=== PATIENT | female | born 1945 ===

== ENCOUNTER 2021-12-29 13:15 | Inpatient (IN) | payer MEDICARE, OTHER ==
[2021-12-29] MEDS ORDERED: NALOXONE 0.4 MG/ML 1 ML VIAL IVP STA (13:34)
--- NOTE | 2021-12-29 14:20 | ED ---
General Adult HPI - General Chief complaint: Altered Mental Status Stated complaint: Kidney Failure Time Seen by Provider: 12/29/21 13:19 Source: patient, RN/MD, EMS, RN notes reviewed Mode of arrival: EMS Limitations: altered mental status, physical limitation - History of Present Illness Initial comments: 76-year-old female transferred from [facility] initially taken to that facility because of altered mental status as well as difficulty breathing she was found have shortness of breath evidence of CHF additionally she is believed of the overdosed on her pain medication she did respond Narcan and did wake up. She is found have evidence of worsening renal function and anemia. CAT scan was performed showing evidence of pulmonary vascular congestion consistent with CHF and pulmonary edema. Patient be admitted to this facility with evaluation by pulmonary medicine she did require - Related Data Allergies Allergy/AdvReac Type Severity Reaction Status Date / Time acetaminophen Allergy Unknown Verified 12/29/21 14:11 codeine Allergy Unknown Verified 12/29/21 14:11 hydromorphone [From Dilaudid] Allergy Unknown Verified 12/29/21 14:11 Review of Systems ROS Statement: Those systems with pertinent positive or pertinent negative responses have been documented in the HPI. Limitations: ROS unobtainable due to patients medical condition Past Medical History Additional Past Medical History / Comment(s): Paroxysmal atrial fibrilation, hypertension, parkinsons, epilepsy, hyperlipidemia, muscle weakness, anemia, hyperkalemia, major depressive disorder, sick sinus syndrome, PVD, CKD stage 3, angina, gastritis, dysphagia, gout, dementia History of Any Multi-Drug Resistant Organisms: Unobtainable Past Surgical History: Pacemaker Past Psychological History: Depression Smoking Status: Unknown if ever smoked Past Alcohol Use History: Unable to Obtain Past Drug Use History: Unable to Obtain General Exam - General Exam Comments Initial Comments: Is a well-developed well-nourished lethargic female Limitations: altered mental status, physical limitation General appearance: lethargic Head exam: Present: atraumatic, normocephalic, normal inspection Eye exam: Present: normal appearance, PERRL, EOMI. Absent: scleral icterus, conjunctival injection, periorbital swelling ENT exam: Present: normal exam, mucous membranes moist Neck exam: Present: normal inspection, full ROM, other (No stridor JVD or bruits ). Absent: tenderness, meningismus, lymphadenopathy Respiratory exam: Present: decreased breath sounds. Absent: respiratory distress, wheezes, rales, rhonchi, stridor Cardiovascular Exam: Present: regular rate, normal rhythm, normal heart sounds. Absent: systolic murmur, diastolic murmur, rubs, gallop, clicks GI/Abdominal exam: Present: soft, normal bowel sounds. Absent: distended, tenderness, guarding, rebound, rigid Extremities exam: Present: normal inspection, full ROM, normal capillary refill. Absent: tenderness, pedal edema, joint swelling, calf tenderness Back exam: Present: normal inspection Neurological exam: Present: alert, altered, CN II-XII intact Psychiatric exam: Present: normal affect, normal mood Skin exam: Present: warm, dry, intact, normal color. Absent: rash Course Vital Signs 12/29/21 12/29/21 12/29/21 13:19 13:53 13:54 Temperature 98.5 F Pulse Rate 66 70 Respiratory 18 14 16 Rate Blood Pressure 121/90 116/97 O2 Sat by Pulse 98 98 Oximetry Medical Decision Making - Medical Decision Making I did review the materials presented from [facility]. Case discussed with Dr. Schumacher patient will be admitted for inpatient evaluation treatment also consultation by nephrology. Disposition Clinical Impression: Congestive heart failure, Altered mental status, Acute kidney injury Disposition: ADMITTED IP TO THIS HOSP Condition: Fair Referrals: Farhad Flower MD [Primary Care Provider] - 1-2 days Decision Date: 12/29/21 Decision Time: 14:20
[2021-12-29] MEDS: FUROSEMIDE 10 MG/ML 4 ML VIAL IV SCH ×2 (15:43→20:34)
[2021-12-29] MEDS ORDERED: SIMETHICONE 80 MG CHEWABLE PO PRN (16:56)
[2021-12-29] MEDS ORDERED: NITROGLYCERIN SL TABS 0.4 MG TAB SUBLINGUAL PRN (16:56)
[2021-12-29] MEDS ORDERED: LACTULOSE 20 GM/30 ML CUP PO PRN (16:59)
[2021-12-29] MEDS ORDERED: CALCIUM CARBONATE 500 MG CHEWABLE PO PRN (16:59)
[2021-12-29] MEDS: RIVAROXABAN 15 MG TAB PO SCH (17:57)
[2021-12-29] MEDS: FERROUS SULFATE 325 MG TAB PO SCH (17:57)
[2021-12-29] MEDS: [UNRECOGNIZED DRUG - OTHER] PO SCH (17:57)
[2021-12-29] MEDS: carvediloL 12.5 MG TAB PO SCH (17:57)
[2021-12-29 18:12] LABS: Glucose,Whole Blood 130 mg/dL (75-99)
[2021-12-29] MEDS: INSULIN ASPART (NovoLOG) 100 UNIT/ML VIAL SQ SCH (18:31)
--- NOTE | 2021-12-29 18:52 | XR ---
EXAMINATION: XR chest 1V DATE AND TIME: 12/29/2021 6:33 PM CLINICAL INDICATION: dyspnea; CHF TECHNIQUE: AP portable upright COMPARISON: None FINDINGS: AV cardiac pacemaker, EKG leads. There is a fine reticular pattern of increased density throughout the lungs bilaterally and symmetric ally reaching the periphery as septal lines. Pattern is consistent with advanced interstitial phase p ulmonary edema, presumably cardiogenic etiology of the mild/moderate cardiac silhouette enlargement a nd the small bilateral pleural effusions. The skeletal structures and soft tissues are negative for acute findings. IMPRESSION: Advanced interstitial phase cardiogenic pulmonary edema radiographic pattern.
[2021-12-29 20:22] LABS: Glucose,Whole Blood 115 mg/dL (75-99)
[2021-12-29] MEDS: INSULIN DETEMIR (LEVEMIR) 100 UNIT/ML SYR SQ SCH (20:22)
[2021-12-29] MEDS: MELATONIN 5 MG TABLET PO SCH (20:22)
[2021-12-29] MEDS: CALCIUM CARB-VIT D 500 MG-5 MCG TAB PO SCH (20:34)
[2021-12-29] MEDS: PANTOPRAZOLE 40 MG TABLET PO SCH (20:34)
[2021-12-29] MEDS: ATORVASTATIN 40 MG TAB PO SCH (20:34)
[2021-12-29] MEDS: CARBIDOPA-LEVODOPA 25-100 MG 1 EACH TAB PO SCH (20:34)
[2021-12-29] MEDS: GABAPENTIN 300 MG CAP PO SCH (20:34)
[2021-12-29] MEDS ORDERED: MAGNESIUM OXIDE 400 MG TAB PO SCH (21:00)
[2021-12-29] MEDS ORDERED: DONEPEZIL 10 MG TAB PO SCH (21:00)
[2021-12-30 05:57] LABS: Glucose,Whole Blood 91 mg/dL (75-99)
[2021-12-30] MEDS: INSULIN ASPART (NovoLOG) 100 UNIT/ML VIAL SQ SCH ×3 (06:03→17:17)
[2021-12-30] MEDS: carvediloL 12.5 MG TAB PO SCH ×2 (06:05→17:18)
[2021-12-30] MEDS: ASPIRIN 81 MG PO SCH (06:07)
[2021-12-30] MEDS: FERROUS SULFATE 325 MG TAB PO SCH ×2 (06:07→17:18)
[2021-12-30] MEDS: PANTOPRAZOLE 40 MG TABLET PO SCH ×2 (06:07→20:48)
[2021-12-30] MEDS: amLODIPine 5 MG TAB PO SCH (06:07)
[2021-12-30 06:57] LABS: ALT <6 U/L (4-34); AST 17 U/L (14-36); African American GFR (CKD) 16 (>60 ml/min/1.73 sqM); Albumin 2.9 g/dL (3.5-5.0); Alkaline Phosphatase 85 U/L (38-126); Anion Gap 5 mmol/L; Blood Urea Nitrogen 46 mg/dL (7-17); Calcium 7.7 mg/dL (8.4-10.2); Carbon Dioxide 27 mmol/L (22-30); Chloride 106 mmol/L (98-107); Glucose 94 mg/dL (74-99); Non-African American GFR(CKD) 14 (>60 ml/min/1.73 sqM); Potassium 5.1 mmol/L (3.5-5.1); Sodium 138 mmol/L (137-145); Total Bilirubin 0.7 mg/dL (0.2-1.3); Total Protein 6.2 g/dL (6.3-8.2)
[2021-12-30] MEDS ORDERED: ESCITALOPRAM 5 MG TAB PO SCH (07:00)
[2021-12-30] MEDS: polyethylene glycoL 3350 17 GM POWD.PACK PO SCH (07:42)
[2021-12-30] MEDS: FUROSEMIDE 10 MG/ML 4 ML VIAL IV SCH ×2 (08:56→20:48)
[2021-12-30] MEDS: ONDANSETRON 4 MG/2 ML VIAL IVP PRN ×2 (08:56→21:47)
--- NOTE | 2021-12-30 10:25 | P.NPCON ---
History of Present Illness - Reason for Consult acute renal failure - History of Present Illness Reason for consultation: Acute kidney injury History of present illness: Patient is a 76-year-old female seen in consultation for acute kidney injury. Patient initially presented to [facility] with altered mental status and shortness of breath. There was concern that she had overdosed on medication. She is currently resting in bed. She states her dyspnea is better. Patient is not sure why she was brought to the hospital. She states that she lives alone at home. Patient's creatinine today is 3.05. Unknown baseline renal function. Patient does have long-standing history of diabetes as well as hypertension. Blood pressure stable. Patient is quite edematous. She is currently maintained on IV Lasix 40 mg twice daily. She has a Akhtar catheter in place. Urine output documented as 1900 mL overnight. I don't see any nonsteroidals at home medication list. Vital signs are stable. General: Awake. Resting in bed. HEENT: On nasal cannula. LUNGS: Breath sounds decreased. HEART: Rate and Rhythm are regular. ABDOMEN: Soft, no distention. EXTREMITITES: 2+ edema. Past Medical History Past Medical History: Atrial Fibrillation, Chest Pain / Angina, Dementia, Diabetes Mellitus, GERD/Reflux, Hyperlipidemia, Hypertension, Musculoskeletal Disorder, Neurologic Disorder, Pneumonia, Renal Disease, Seizure Disorder, Vascular Disorder Additional Past Medical History / Comment(s): IDDM type II, paroxysmal atrial fibrilation, parkinsons, epilepsy, muscle weakness, anemia, hyperkalemia, sick sinus syndrome with pacemaker, PVD, CKD stage 3, gastritis, dysphagia, gout History of Any Multi-Drug Resistant Organisms: None Reported Past Surgical History: Pacemaker Past Anesthesia/Blood Transfusion Reactions: No Reported Reaction Type of Cardiac Device: Permanent Pacemaker Device Placement Date:: unknown Smoking Status: Unknown if ever smoked - Past Family History Father Family Medical History: Unable to Obtain Mother Family Medical History: Unable to Obtain Medications and Allergies Home Medications Medication Instructions Recorded Confirmed Type Acetaminophen Tab [Tylenol] 650 mg PO Q4H PRN 12/29/21 12/29/21 History Allopurinol [Zyloprim] 100 mg PO DAILY@1200 12/29/21 12/29/21 History Aspirin EC [Ecotrin Low Dose] 81 mg PO DAILY@0700 12/29/21 12/29/21 History Atorvastatin [Lipitor] 40 mg PO HS@2100 28/22 04/28/22 History Calcium Carbonate/Vitamin D3 1 cap PO HS@209912/29/21 12/29/21 History [Calcium 600 mg-D3 10 Mcg (400 Iu)] Carbidopa-Levodopa 25-100 mg 1 tab PO HS@199912/29/21 12/29/21 History [Sinemet 25-100] Carvedilol [Coreg] 12.5 mg PO BID@0700,17012/29/21 12/29/21 History Docusate [Colace] 100 mg PO HS@209912/29/21 12/29/21 History Donepezil [Aricept] 10 mg PO HS@209912/29/21 12/29/21 History Escitalopram [Lexapro] 5 mg PO DAILY@0712/29/21 12/29/21 History Ferrous Sulfate [Feosol] 325 mg PO BID@0700,1700 12/29/21 12/29/21 History Fluticasone Nasal [place] [Flonase 1 spray EA NOSTRIL DAILY@0712/29/21 12/29/21 History Nasal [place]] Gabapentin [Neurontin] 300 mg PO HS@209912/29/21 12/29/21 History INSULIN LISPRO (HumaLOG) [humaLOG] See Protocol SQ AC-TID 12/29/21 12/29/21 History Insulin Glargine,Hum.rec.anlog 15 unit SQ HS@209912/29/21 12/29/21 History [Lantus Solostar Pen] Lidocaine 4% Patch 1 patch TOPICAL DAILY@99912/29/21 12/29/21 History Magnesium Oxide [Mag-Ox] 400 mg PO BID@1200,209912/29/21 12/29/21 History Med Plus 120 ml PO BID@1200,1700 12/29/21 12/29/21 History Melatonin 5 mg PO HS@209912/29/21 12/29/21 History Nitroglycerin Sl Tabs [Nitrostat] 0.4 mg SUBLINGUAL Q5M PRN 12/29/21 12/29/21 History Omeprazole 20 mg PO BID@0700,209912/29/21 12/29/21 History Polyethylene Glycol 3350 [Miralax] 17 gm PO DAILY@0800 12/29/21 12/29/21 History Rivaroxaban [Xarelto] 15 mg PO DAILY@1700 12/29/21 12/29/21 History Simethicone [Gas-X] 125 mg PO Q6H PRN 12/29/21 12/29/21 History amLODIPine [Norvasc] 5 mg PO DAILY@0700 12/29/21 12/29/21 History oxyCODONE HCL 5 mg PO QID 12/29/21 12/29/21 History Allergies Allergy/AdvReac Type Severity Reaction Status Date / Time acetaminophen Allergy Unknown Verified 12/29/21 14:11 codeine Allergy Unknown Verified 12/29/21 14:11 hydromorphone [From Dilaudid] Allergy Unknown Verified 12/29/21 14:11 Physical Exam Vitals: Vital Signs Temp Pulse Pulse Resp BP BP Pulse Ox 12/30/21 08:00 98.5 F 67 17 163/65 99 12/30/21 03:51 97.5 F L 58 L 16 100/60 100 12/30/21 00:00 97.7 F 60 17 118/49 100 12/29/21 20:00 97.4 F L 57 L 16 119/50 100 12/29/21 17:10 16 12/29/21 15:49 66 16 99 12/29/21 15:44 97.7 F 68 16 131/62 99 12/29/21 14:28 58 L 14 140/56 100 12/29/21 13:54 70 16 116/97 98 12/29/21 13:53 14 12/29/21 13:19 98.5 F 66 18 121/90 98 Intake and Output 12/29/21 12/30/21 12/30/21 22:59 06:59 14:59 Intake Total 240 Output Total 400 500 Balance -160 -500 Intake: Oral 240 Output: Urine 400 500 Other: Voiding Method Indwelling Catheter Indwelling Catheter Indwelling Catheter # Bowel Movements 1 Weight 99.79 kg 76.2 kg Results - Lab Results Most recent lab results Calcium 7.7 mg/dL (8.4-10.2) L 12/30/21 06:19 Magnesium 3.0 mg/dL (1.6-2.3) H 12/30/21 06:19 12/30/21 06:19 Assessment and Plan Plan: Assessment: 1. Acute kidney injury secondary to ATN secondary to cardiorenal syndrome. Unknown baseline renal function. Creatinine 3.05 today. 2. Volume overload. 3. Diabetes mellitus. 4. Rule out chronic kidney disease. 5. Benign hypertension. 6. Cardiomyopathy. Unknown ejection fraction. Plan: Maintain IV Lasix. Follow-up echocardiogram. Check urinalysis. Check renal ultrasound. Continue to monitor renal function and urine output. Hold amlodipine for systolic blood pressure less than 120. Stop magnesium oxide. Thank you for the consultation. I will continue to follow the patient with you during her hospital stay.
--- NOTE | 2021-12-30 11:11 | P.CRDCN ---
History of Present Illness Consult date: 12/30/21 History of present illness: Patient is a 76-year-old female who was transferred here from [place] with a known history of proximal atrial fibrillation hypertension, sick sinus syndrome status post permanent pacemaker, peripheral vascular disease, chronic kidney disease stage III, and dementia Parkinson's, epilepsy, hyperlipidemia brought in for increasing shortness of breath and altered mental status. Patient was becoming increasingly short of breath and lethargic, it was believed she overdosed on her pain medication due to her chronic kidney disease. We have been consult the to see the patient for new onset congestive heart failure. 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 Patient had a chest CT at another facility which showed pulmonary vascular congestion consistent with congestive heart failure. Her EKG shows her in sinus rhythm. She is on Lasix 40 every 12 hours, Her BUN is 46 creatinine 3.05. Patient is on several to go for her history of atrial fibrillation. On exam patient is resting comfortably in bed in no signs of acute distress. She is alert and orientated 1. Will obtain an echocardiogram to evaluate LV function. will recheck labs in the morning. Continue with Lipitor aspirin amlodipine Coreg Xarelto and IV Lasix. Review of Systems REVIEW OF SYSTEMS At the time of my exam: Patient is resting comfortably in bed in no signs of acute distress. Patient is alert and orientated 1 CONSTITUTIONAL: Denies fever or chills. EYES: Negative for vision changes ENT: Negative for hearing loss CARDIOVASCULAR: Denies chest pain, shortness of breath, diaphoresis, orthopnea, PND or palpitations. VASCULAR: Denies edema RESPIRATORY: Denies cough. GASTROINTESTINAL: Denies abdominal pain, diarrhea, constipation, nausea or vomiting. MUSCULOSKELETAL: Denies myalgias. NEUROLOGIC: Denies numbness, tingling, headache or weakness. ENDOCRINE: Denies fatigue, weight change, polydipsia or polyurina. GENITOURINARY: Denies burning, hematuria or urgency with micturation. HEMATOLOGIC: Denies history of anemia or bleeding. DERMATOLOGY: Denies rash or skin sores PSYCH: Negative for depression or hallucinations. Past Medical History Past Medical History: Atrial Fibrillation, Chest Pain / Angina, Dementia, Diabetes Mellitus, GERD/Reflux, Hyperlipidemia, Hypertension, Musculoskeletal Disorder, Neurologic Disorder, Pneumonia, Renal Disease, Seizure Disorder, Vascular Disorder Additional Past Medical History / Comment(s): IDDM type II, paroxysmal atrial fibrilation, parkinsons, epilepsy, muscle weakness, anemia, hyperkalemia, sick sinus syndrome with pacemaker, PVD, CKD stage 3, gastritis, dysphagia, gout History of Any Multi-Drug Resistant Organisms: None Reported Past Surgical History: Pacemaker Past Anesthesia/Blood Transfusion Reactions: No Reported Reaction Type of Cardiac Device: Permanent Pacemaker Device Placement Date:: unknown Smoking Status: Unknown if ever smoked - Past Family History Father Family Medical History: Unable to Obtain Mother Family Medical History: Unable to Obtain Medications and Allergies Home Medications Medication Instructions Recorded Confirmed Type Acetaminophen Tab [Tylenol] 650 mg PO Q4H PRN 12/29/21 12/29/21 History Allopurinol [Zyloprim] 100 mg PO DAILY@119912/29/21 12/29/21 History Aspirin EC [Ecotrin Low Dose] 81 mg PO DAILY@69912/29/21 12/29/21 History Atorvastatin [Lipitor] 40 mg PO HS@209912/29/21 12/29/21 History Calcium Carbonate/Vitamin D3 1 cap PO HS@209912/29/21 12/29/21 History [Calcium 600 mg-D3 10 Mcg (400 Iu)] Carbidopa-Levodopa 25-100 mg 1 tab PO HS@199912/29/21 12/29/21 History [Sinemet 25-100] Carvedilol [Coreg] 12.5 mg PO BID@0700,1700 12/29/21 12/29/21 History Docusate [Colace] 100 mg PO HS@209912/29/21 12/29/21 History Donepezil [Aricept] 10 mg PO HS@209912/29/21 12/29/21 History Escitalopram [Lexapro] 5 mg PO DAILY@69912/29/21 12/29/21 History Ferrous Sulfate [Feosol] 325 mg PO BID@0700,1700 12/29/21 12/29/21 History Fluticasone Nasal [place] [Flonase 1 spray EA NOSTRIL DAILY@69912/29/21 12/29/21 History Nasal [place]] Gabapentin [Neurontin] 300 mg PO HS@209912/29/21 12/29/21 History INSULIN LISPRO (HumaLOG) [humaLOG] See Protocol SQ AC-TID 12/29/21 12/29/21 History Insulin Glargine,Hum.rec.anlog 15 unit SQ HS@209912/29/21 12/29/21 History [Lantus Solostar Pen] Lidocaine 4% Patch 1 patch TOPICAL DAILY@1000 12/29/21 12/29/21 History Magnesium Oxide [Mag-Ox] 400 mg PO BID@1200,2100 12/29/21 12/29/21 History Med Plus 120 ml PO BID@1200,1700 12/29/21 12/29/21 History Melatonin 5 mg PO HS@209912/29/21 12/29/21 History Nitroglycerin Sl Tabs [Nitrostat] 0.4 mg SUBLINGUAL Q5M PRN 12/29/21 12/29/21 History Omeprazole 20 mg PO BID@0700,209912/29/21 12/29/21 History Polyethylene Glycol 3350 [Miralax] 17 gm PO DAILY@0800 12/29/21 12/29/21 History Rivaroxaban [Xarelto] 15 mg PO DAILY@1700 12/29/21 12/29/21 History Simethicone [Gas-X] 125 mg PO Q6H PRN 12/29/21 12/29/21 History amLODIPine [Norvasc] 5 mg PO DAILY@0700 12/29/21 12/29/21 History oxyCODONE HCL 5 mg PO QID 12/29/21 12/29/21 History Allergies Allergy/AdvReac Type Severity Reaction Status Date / Time acetaminophen Allergy Unknown Verified 12/29/21 14:11 codeine Allergy Unknown Verified 12/29/21 14:11 hydromorphone [From Dilaudid] Allergy Unknown Verified 12/29/21 14:11 Physical Exam Vitals: Vital Signs Temp Pulse Pulse Resp BP BP Pulse Ox 12/30/21 08:00 98.5 F 67 17 163/65 99 12/30/21 03:51 97.5 F L 58 L 16 100/60 100 12/30/21 00:00 97.7 F 60 17 118/49 100 12/29/21 20:00 97.4 F L 57 L 16 119/50 100 12/29/21 17:10 16 12/29/21 15:49 66 16 99 12/29/21 15:44 97.7 F 68 16 131/62 99 12/29/21 14:28 58 L 14 140/56 100 12/29/21 13:54 70 16 116/97 98 12/29/21 13:53 14 12/29/21 13:19 98.5 F 66 18 121/90 98 Intake and Output 12/29/21 12/30/21 12/30/21 22:59 06:59 14:59 Intake Total 240 Output Total 400 500 Balance -160 -500 Intake: Oral 240 Output: Urine 400 500 Other: Voiding Method Indwelling Catheter Indwelling Catheter Indwelling Catheter # Bowel Movements 1 Weight 99.79 kg 76.2 kg Patient is resting comfortably in bed in no signs of acute distress. Patient is alert and orientated 1 General: The patient is awake and alert, in no distress, and does not appear acutely ill. Skin: Skin is warm and dry and no rashes or lesions are noted. Eye: Pupils are equal, round and reactive to light, extra-ocular movements are intact; there is normal conjunctiva bilaterally. Ears, nose, mouth and throat: There are moist mucous membranes and no oral lesions. Neck: The neck is supple, there is no tenderness or JVD. Cardiovascular: There is irregular regular rate and rhythm. No murmur, rub or gallop is appreciated. Respiratory: Lungs are clear to auscultation, respirations are non-labored, breath sounds are equal. Gastrointestinal: Soft, non-distended, non-tender abdomen without masses or organomegaly noted. There is no rebound or guarding present. Bowel sounds are unremarkable. Back: There is no tenderness to palpation in the midline. There is no obvious deformity. Musculoskeletal: Normal ROM, no tenderness, There is no pedal edema. There is no calf tenderness or swelling. Extremities: Moderate bilateral pitting edema Vascular: Femoral pulse is normal. Posterior tibial pulses are normal .Dorsalis pedis is palpable. Neurological: CN II-XII intact. There are no obvious motor or sensory deficits. Speech is normal. Psychiatric: Cooperative, appropriate mood & affect, normal judgment Results 12/30/21 06:19 Cardiac Enzymes 12/30/21 Range/Units 06:19 AST 17 (14-36) U/L Comprehensive Metabolic Panel 12/30/21 Range/Units 06:19 Sodium 138 (137-145) mmol/L Potassium 5.1 (3.5-5.1) mmol/L Chloride 106 (98-107) mmol/L Carbon Dioxide 27 (22-30) mmol/L BUN 46 H (7-17) mg/dL Creatinine 3.05 H (0.52-1.04) mg/dL Glucose 94 (74-99) mg/dL Calcium 7.7 L (8.4-10.2) mg/dL AST 17 (14-36) U/L ALT <6 (4-34) U/L Alkaline Phosphatase 85 (38-126) U/L Total Protein 6.2 L (6.3-8.2) g/dL Albumin 2.9 L (3.5-5.0) g/dL Current Medications Generic Name Dose Route Start Last Admin Trade Name Freq PRN Reason Stop Dose Admin Acetaminophen 650 mg 12/29/21 16:56 Acetaminophen Tab 325 Mg Tab PO Q4H PRN Pain Allopurinol 100 mg 12/30/21 12:00 Allopurinol 100 Mg Tab PO DAILY@1200 [facility] Amlodipine Besylate 5 mg 12/30/21 07:00 12/30/21 06:07 Amlodipine 5 Mg Tab PO 5 mg DAILY@0700 [facility] Administration Aspirin 81 mg 12/30/21 07:00 12/30/21 06:07 Aspirin 81 Mg PO 81 mg DAILY@0700 [facility] Administration Atorvastatin Calcium 40 mg 12/29/21 21:00 12/29/21 20:34 Atorvastatin 40 Mg Tab PO 40 mg HS@2100 [facility] Administration Calcium Carbonate 1 each 12/29/21 21:00 12/29/21 20:34 Calcium Carb-Vit D 500 Mg-5 Mcg Tab PO 1 each HS@2100 [facility] Administration Calcium Carbonate/Glycine 1,000 mg 12/29/21 16:59 Calcium Carbonate 500 Mg Chewable PO Q4HR PRN Dyspepsia Carbidopa/Levodopa 1 each 12/29/21 20:00 12/29/21 20:34 Carbidopa-Levodopa 25-100 Mg 1 Each Tab PO 1 each HS@1999 [facility] Administration Carvedilol 12.5 mg 12/29/21 17:00 12/30/21 06:05 Carvedilol 12.5 Mg Tab PO Not Given BID@0700,1700 [facility] Donepezil HCl 10 mg 12/29/21 21:00 12/29/21 20:34 Donepezil 10 Mg Tab PO 10 mg HS@2100 [facility] Administration Escitalopram Oxalate 5 mg 12/30/21 07:00 12/30/21 06:07 Escitalopram 5 Mg Tab PO 5 mg DAILY@0700 [facility] Administration Ferrous Sulfate 325 mg 12/29/21 17:00 12/30/21 06:07 Ferrous Sulfate 325 Mg Tab PO 325 mg BID@0700,1700 [facility] Administration Furosemide 40 mg 12/29/21 14:30 12/30/21 08:56 Furosemide 10 Mg/Ml 4 Ml Vial IV 40 mg Q12HR [facility] Administration Gabapentin 300 mg 12/29/21 21:00 12/29/21 20:34 Gabapentin 300 Mg Cap PO 300 mg HS@2100 [facility] Administration Insulin Aspart 0 unit 12/29/21 17:30 12/30/21 06:03 Insulin Aspart (Novolog) 100 Unit/Ml Vial SQ Not Given AC-TID [facility] Protocol Insulin Detemir 15 unit 12/29/21 21:00 12/29/21 20:22 Insulin Detemir (Levemir) 100 Unit/Ml Syr SQ Not Given HS@2100 [facility] Lactulose 20 gm 12/29/21 16:59 Lactulose 20 Gm/30 Ml Cup PO DAILY PRN Constipation Lidocaine 1 patch 12/30/21 10:00 Lidocaine 5% Patch TOPICAL DAILY@1000 [facility] Melatonin 5 mg 12/29/21 21:00 12/29/21 20:22 Melatonin 5 Mg Tablet PO Not Given HS@2100 [facility] Nitroglycerin 0.4 mg 12/29/21 16:56 Nitroglycerin Sl Tabs 0.4 Mg Tab SUBLINGUAL Q5M PRN Chest Pain Non-Formulary Medication 120 ml 12/29/21 17:00 12/29/21 17:57 Med Plus PO Not Given BID@1200,1700 [facility] Ondansetron HCl 4 mg 12/29/21 16:59 12/30/21 08:56 Ondansetron 4 Mg/2 Ml Vial IVP 4 mg Q8HR PRN Administration Nausea And Vomiting Oxycodone HCl 5 mg 12/29/21 18:00 12/30/21 07:42 Oxycodone Hcl 5 Mg Tab PO Not Given QID [facility] Pantoprazole Sodium 40 mg 12/29/21 21:00 12/30/21 06:07 Pantoprazole 40 Mg Tablet PO 40 mg BID@0700,2100 [facility] Administration Polyethylene Glycol 17 gm 12/30/21 08:00 12/30/21 07:42 Polyethylene Glycol 3350 17 Gm Powd.Pack PO Not Given DAILY@0800 [facility] Rivaroxaban 15 mg 12/29/21 17:00 12/29/21 17:57 Rivaroxaban 15 Mg Tab PO Not Given DAILY@1700 [facility] Protocol Simethicone 120 mg 12/29/21 16:56 Simethicone 80 Mg Chewable PO Q6H PRN GAS Intake and Output 12/29/21 12/30/21 12/30/21 22:59 06:59 14:59 Intake Total 240 Output Total 400 500 Balance -160 -500 Intake: Oral 240 Output: Urine 400 500 Other: Voiding Method Indwelling Catheter Indwelling Catheter Indwelling Catheter # Bowel Movements 1 Weight 99.79 kg 76.2 kg 12/30/21 06:19 Assessment and Plan Assessment: New onset unspecific congestive heart failure Proximal atrial fibrillation Chronic kidney disease stage III Sick sinus syndrome status post pacemaker Plan: Will obtain an echocardiogram to evaluate LV function Continue with all current cardiac medications Continue with Xarelto for anticoagulation Continue to monitor kidney function Continue with IV Lasix for diuresing Continue with telemetry monitoring Further recommendations based on clinical course The above impression and plan of care have been discussed and directed by the signing physician. Clau Lizama, nurse practitioner, acting as scribe for [facility].
--- NOTE | 2021-12-30 11:19 | CA ---
Transthoracic Echo Report Name: Maurice Hilton Age: 76 Gender: F : 1945 Exam Date: 12/30/2021 08:58 Exam Location: [facility] Ht (in): 65 Wt (lb): 167 Ordering Physician: Jeff Schumacher MD Attending/Referring Phys: Helpdesk Administrator Rocio Gallo RDCS Procedure CPT: Indications: chf Cardiac Hx: AFIB, HTN , CHOL Technical Quality: Contrast 1: Total Dose (mL): Contrast 2: Total Dose (mL): MEASUREMENTS (Male / Female) Normal Values 2D ECHO LV Diastolic Diameter PLAX 4.0 cm 4.2 - 5.9 / 3.9 - 5.3 cm LV Systolic Diameter PLAX 2.7 cm IVS Diastolic Thickness 1.2 cm 0.6 - 1.0 / 0.6 - 0.9 cm LVPW Diastolic Thickness 1.3 cm 0.6 - 1.0 / 0.6 - 0.9 cm LV Relative Wall Thickness 0.6 RV Internal Dim ED PLAX 2.9 cm LA Systolic Diameter LX 3.4 cm 3.0 - 4.0 / 2.7 - 3.8 cm LA Volume 69.4 cm 18 - 58 / 22 - 52 cm M-MODE Aortic Root Diameter MM 2.2 cm LA Systolic Diameter MM 3.6 cm LA Ao Ratio MM 1.6 MV E Point Septal Separation 0.2 cm AV Cusp Separation MM 1.1 cm DOPPLER MV Area PHT 3.6 cm Mitral E Point Velocity 64.0 cm/s Mitral A Point Velocity 90.5 cm/s Mitral E to A Ratio 0.7 MV Deceleration Time 211.8 ms TR Peak Velocity 306.5 cm/s TR Peak Gradient 37.6 mmHg Right Ventricular Systolic Press 42.6 mmHg FINDINGS Left Ventricle Mildly increased left ventricular wall thickness. Left ventricular ejection fraction is estimated at 55-60%. Mildly increased septal wall thickness. Right Ventricle Normal right ventricular size and function. Right ventricular systolic pressure within normal limits. Right Atrium Right atrium not well visualized. Left Atrium Moderately increased left atrial volume. Mildly increased left atrial area. Mitral Valve Mitral valve thickened. Mild mitral regurgitation. Aortic Valve Aortic valve sclerosis. Tricuspid Valve Structurally normal tricuspid valve. Pulmonic Valve Pulmonic valve not well visualized. Pericardium Normal pericardium. Aorta Normal size aortic root and proximal ascending aorta. CONCLUSIONS Normal LV size and systolic function with mild concentric LVH. Mitral valve calcification and aortic sclerosis. No pericardial effusion Previewed by: Dr. Jackson Florez MD (Electronically Signed) Final Date: 30 December 2021 11:19
[2021-12-30 11:45] LABS: Glucose,Whole Blood 112 mg/dL (75-99)
[2021-12-30] MEDS: [UNRECOGNIZED DRUG - OTHER] PO SCH ×2 (12:23→16:28)
[2021-12-30] MEDS: LIDOCAINE 5% PATCH TOPICAL SCH (12:25)
--- NOTE | 2021-12-30 12:38 | P.HPIM ---
History of Present Illness H&P Date: 12/29/21 Chief Complaint: Short of breath This is a 76-year-old patient who follows with Dr. Farhad Flower. Seen by me in the ER. Resident of [facility]. Patient is a poor historian. Chronic stable medical conditions include depression, diabetes, peripheral neuropathy, dementia, hypertension, insomnia, hyperlipidemia, atrial fibrillation on xarelto, pacemaker for sick sinus syndrome, chronic kidney disease, gout, Parkinson's disease. Patient at baseline is known ambulatory. Patient is brought into [facility] this morning with a pulse ox down to 70%. Also been short of breath. Minimal cough. Since abdomen congestive heart failure. Sent down here. Started on IV Lasix. Patient herself is a limited historian. Daughter noticed to be short of breath. Review of systems: GEN.: Tired EYES: None HEENT: None NECK: None RESPIRATORY: Short of breath CARDIOVASCULAR: No chest pain GASTROINTESTINAL: None GENITOURINARY: None MUSCULOSKELETAL: Some joint pains] LYMPHATICS: None HEMATOLOGICAL: None PSYCHIATRY: Forgetful NEUROLOGICAL: Bilateral foot drop Past medical history to include: Depression, diabetes, peripheral neuropathy, dementia, hypertension, insomnia, hyperlipidemia, atrial fibrillation, Parkinson's, 6 sinus syndrome with a pacemaker, gout, chronic kidney disease Social history: Patient lives at [facility]. Needs a Nba lift a wheel chair. Incontinent. She can feed herself. No history of smoking alcohol known. Family history: Patient cannot tell Physical examination: VITAL SIGNS: 98.5, 66, 18, 121/90, 98% on 2 L GENERAL: BMI 36.6, laying in bed, some shortness of breath. EYES: Pupils equal. Conjunctiva normal. HEENT: External appearance of nose and ears normal, oral cavity grossly normal. NECK: JVD unable to assess; masses not palpable. HEART: Heart sounds irregular; some edema. LUNGS:[ Respiratory rate increased; decreased breath sounds. ABDOMEN: Soft, nontender, liver spleen not palpable, no masses palpable. PSYCH: [Patient knows her name, does not know where she is, does not know the year. MUSCULOSKELETAL:No Clubbing/cyanosis;muscles-grossly intact. Evidence of OA. Bilateral foot drop NEUROLOGICAL: [Cranial nerves grossly intact; no facial asymmetry, no part of the lower extremity. LYMPHATICS: No lymph nodes palpable in the axilla and neck INVESTIGATIONS, reviewed in the clinical context: Blood both from [facility]: INR 1.5. Lipase 64. Troponin less than 0.012. Lactic acid 0.9. COVID 19: Not detected. Influenza A: Not detected Sodium 136 potassium 5.9 BUN 41 creatinine 3.1 LFTs normal. EKG tracing personally reviewed by me-normal sinus rhythm. Chest x-ray film personally reviewed by me-cardiac megaly. Venous prominence. Blunting of angles Assessment and plan: -Acute congestive heart failure. EF not known. IV Lasix. 2-D echo. Consult cardiology -Depression Lexapro 5 mg a day -Diabetes mellitus type 2, chronically on insulin Lantus 15 units subcu daily at bedtime. Follow Accu-Cheks -Diabetic peripheral neuropathy Neurontin 300 mg daily at bedtime -Major cognitive impairment/dementia Aricept 10 mg daily at bedtime -Chronic medical debility, patient is on empirically. At her baseline needs Nba lift. Fall precautions -Essential hypertension Coreg 12.5 mg by mouth twice a day amlodipine 5 mg a day -Chronic gout Allopurinol 100 mg a day -Hyperlipidemia Lipitor 40 mg daily at bedtime -Parkinson's disease Sinemet 25/100 one tablet daily at bedtime -Chronic kidney disease stage III likely from diabetic nephropathy and hypertensive nephrosclerosis Follow renal function. Nephrology consult IV Lasix. Resume home medications. Follow Accu-Cheks. Telemetry Fall precautions. 2-D echocardiogram. Consultation to cardiology and nephrology. Strict I's and O's. Diabetic diet. Given the complexity and severity of patient's condition expect the patient to be in the hospital at least for 2 overnights Past Medical History Past Medical History: Atrial Fibrillation, Chest Pain / Angina, Dementia, Diabet es Mellitus, GERD/Reflux, Hyperlipidemia, Hypertension, Musculoskeletal Disorder, Neurologic Disorder, Pneumonia, Renal Disease, Seizure Disorder, Vascular Disorder Additional Past Medical History / Comment(s): IDDM type II, paroxysmal atrial fibrilation, parkinsons, epilepsy, muscle weakness, anemia, hyperkalemia, sick sinus syndrome with pacemaker, PVD, CKD stage 3, gastritis, dysphagia, gout History of Any Multi-Drug Resistant Organisms: None Reported Past Surgical History: Pacemaker Past Anesthesia/Blood Transfusion Reactions: No Reported Reaction Type of Cardiac Device: Permanent Pacemaker Device Placement Date:: unknown Smoking Status: Unknown if ever smoked - Past Family History Father Family Medical History: Unable to Obtain Mother Family Medical History: Unable to Obtain Medications and Allergies Home Medications Medication Instructions Recorded Confirmed Type Acetaminophen Tab [Tylenol] 650 mg PO Q4H PRN 12/29/21 12/29/21 History Allopurinol [Zyloprim] 100 mg PO DAILY@1200 12/29/21 12/29/21 History Aspirin EC [Ecotrin Low Dose] 81 mg PO DAILY@0700 12/29/21 12/29/21 History Atorvastatin [Lipitor] 40 mg PO HS@209912/29/21 12/29/21 History Calcium Carbonate/Vitamin D3 1 cap PO HS@209912/29/21 12/29/21 History [Calcium 600 mg-D3 10 Mcg (400 Iu)] Carbidopa-Levodopa 25-100 mg 1 tab PO HS@199912/29/21 12/29/21 History [Sinemet 25-100] Carvedilol [Coreg] 12.5 mg PO BID@0700,1700 12/29/21 12/29/21 History Docusate [Colace] 100 mg PO HS@209912/29/21 12/29/21 History Donepezil [Aricept] 10 mg PO HS@209912/29/21 12/29/21 History Escitalopram [Lexapro] 5 mg PO DAILY@0712/29/21 12/29/21 History Ferrous Sulfate [Feosol] 325 mg PO BID@0700,1700 12/29/21 12/29/21 History Fluticasone Nasal [place] [Flonase 1 spray EA NOSTRIL DAILY@0700 12/29/21 12/29/21 History Nasal Empire] Gabapentin [Neurontin] 300 mg PO HS@209912/29/21 12/29/21 History INSULIN LISPRO (HumaLOG) [humaLOG] See Protocol SQ AC-TID 12/29/21 12/29/21 History Insulin Glargine,Hum.rec.anlog 15 unit SQ HS@209912/29/21 12/29/21 History [Lantus Solostar Pen] Lidocaine 4% Patch 1 patch TOPICAL DAILY@1000 12/29/21 12/29/21 History Magnesium Oxide [Mag-Ox] 400 mg PO BID@1200,209912/29/21 12/29/21 History Med Plus 120 ml PO BID@1200,1700 12/29/21 12/29/21 History Melatonin 5 mg PO HS@2100 12/29/21 12/29/21 History Nitroglycerin Sl Tabs [Nitrostat] 0.4 mg SUBLINGUAL Q5M PRN 12/29/21 12/29/21 History Omeprazole 20 mg PO BID@0700,2100 12/29/21 12/29/21 History Polyethylene Glycol 3350 [Miralax] 17 gm PO DAILY@0800 12/29/21 12/29/21 History Rivaroxaban [Xarelto] 15 mg PO DAILY@1700 12/29/21 12/29/21 History Simethicone [Gas-X] 125 mg PO Q6H PRN 12/29/21 12/29/21 History amLODIPine [Norvasc] 5 mg PO DAILY@0700 12/29/21 12/29/21 History oxyCODONE HCL 5 mg PO QID 12/29/21 12/29/21 History Allergies Allergy/AdvReac Type Severity Reaction Status Date / Time acetaminophen Allergy Unknown Verified 12/29/21 14:11 codeine Allergy Unknown Verified 12/29/21 14:11 hydromorphone [From Dilaudid] Allergy Unknown Verified 12/29/21 14:11 Physical Exam Vitals: Vital Signs Temp Pulse Resp BP Pulse Ox 12/29/21 15:49 66 16 99 12/29/21 15:44 97.7 F 68 16 131/62 99 12/29/21 14:28 58 L 14 140/56 100 12/29/21 13:54 70 16 116/97 98 12/29/21 13:53 14 12/29/21 13:19 98.5 F 66 18 121/90 98 Intake and Output 12/29/21 12/29/21 12/29/21 06:59 14:59 22:59 Other: Weight 99.79 kg 99.79 kg Results CBC & Chem 7: 12/30/21 06:19 Thrombosis Risk Factor Assmnt - Choose All That Apply Any of the Below Risk Factors Present?: Yes Each Factor Represents 1 point: Heart failure (<1month), Medical pt on bed rest, Obesity (BMI >25) Other Risk Factors: Yes Each Risk Factor Represents 2 Points: Patient confined to bed Each Risk Factor Represents 3 Points: Age 75 years or older Other congenital or acquired thrombophilia - If yes, enter type in comment: No Thrombosis Risk Factor Assessment Total Risk Factor Score: 8 Thrombosis Risk Factor Assessment Level: High Risk
--- NOTE | 2021-12-30 12:45 | P.PN ---
Progress Note - Text Progress Note Date: 12/30/21 Chief Complaint: Short of breath This is a 76-year-old patient who follows with Dr. Farhad Flower. Seen by me in the ER. Resident of [facility]. Patient is a poor historian. Chronic stable medical conditions include depression, diabetes, peripheral neuropathy, dementia, hyp ertension, insomnia, hyperlipidemia, atrial fibrillation on xarelto, pacemaker for sick sinus syndrome, chronic kidney disease, gout, Parkinson's disease. Patient at baseline is known ambulatory. Patient is brought into [facility] this morning with a pulse ox down to 70%. Also been short of breath. Minimal cough. Since abdomen congestive heart failure. Sent down here. Started on IV Lasix. Patient herself is a limited historian. Daughter noticed to be short of breath. Admitted with acute congestive heart exacerbation. Started on IV Lasix. December 30: Laying in bed. A bit delirious. IV Lasix. Making urine. Rather sleepy. Oxycodone being changed to when necessary. DC Aricept and Lexapro given minimal benefit given her baseline state of dementia. Hopefully this should improve wakefulness. Active Medications Acetaminophen (Acetaminophen Tab 325 Mg Tab) 650 mg PO Q4H PRN PRN Reason: Pain Allopurinol (Allopurinol 100 Mg Tab) 100 mg PO DAILY@1200 [facility] Amlodipine Besylate (Amlodipine 5 Mg Tab) 5 mg PO DAILY@0700 [facility] Last Admin: 12/30/21 06:07 Dose: 5 mg Documented by: Aspirin (Aspirin 81 Mg) 81 mg PO DAILY@0700 [facility] Last Admin: 12/30/21 06:07 Dose: 81 mg Documented by: Atorvastatin Calcium (Atorvastatin 40 Mg Tab) 40 mg PO HS@2100 [facility] Last Admin: 12/29/21 20:34 Dose: 40 mg Documented by: Calcium Carbonate (Calcium Carb-Vit D 500 Mg-5 Mcg Tab) 1 each PO HS@2100 [facility] Last Admin: 12/29/21 20:34 Dose: 1 each Documented by: Calcium Carbonate/Glycine (Calcium Carbonate 500 Mg Chewable) 1,000 mg PO Q4HR PRN PRN Reason: Dyspepsia Carbidopa/Levodopa (Carbidopa-Levodopa 25-100 Mg 1 Each Tab) 1 each PO HS@2000 [facility] Last Admin: 12/29/21 20:34 Dose: 1 each Documented by: Carvedilol (Carvedilol 12.5 Mg Tab) 12.5 mg PO BID@0700,1700 [facility] Last Admin: 12/30/21 06:05 Dose: Not Given Documented by: Ferrous Sulfate (Ferrous Sulfate 325 Mg Tab) 325 mg PO BID@0700,1700 [facility] Last Admin: 12/30/21 06:07 Dose: 325 mg Documented by: Furosemide (Furosemide 10 Mg/Ml 4 Ml Vial) 40 mg IV Q12HR [facility] Last Admin: 12/30/21 08:56 Dose: 40 mg Documented by: Gabapentin (Gabapentin 300 Mg Cap) 300 mg PO HS@2100 [facility] Last Admin: 12/29/21 20:34 Dose: 300 mg Documented by: Insulin Aspart (Insulin Aspart (Novolog) 100 Unit/Ml Vial) 0 unit SQ AC-TID [facility]; Protocol Last Admin: 12/30/21 12:23 Dose: Not Given Documented by: Insulin Detemir (Insulin Detemir (Levemir) 100 Unit/Ml Syr) 15 unit SQ HS@2100 [facility] Last Admin: 12/29/21 20:22 Dose: Not Given Documented by: Lactulose (Lactulose 20 Gm/30 Ml Cup) 20 gm PO DAILY PRN PRN Reason: Constipation Lidocaine (Lidocaine 5% Patch) 1 patch TOPICAL DAILY@1000 [facility] Last Admin: 12/30/21 12:25 Dose: 1 patch Documented by: Melatonin (Melatonin 5 Mg Tablet) 5 mg PO HS@2100 [facility] Last Admin: 12/29/21 20:22 Dose: Not Given Documented by: Nitroglycerin (Nitroglycerin Sl Tabs 0.4 Mg Tab) 0.4 mg SUBLINGUAL Q5M PRN PRN Reason: Chest Pain Non-Formulary Medication (Med Plus) 120 ml PO BID@1200,1700 [facility] Last Admin: 12/30/21 12:23 Dose: Not Given Documented by: Ondansetron HCl (Ondansetron 4 Mg/2 Ml Vial) 4 mg IVP Q8HR PRN PRN Reason: Nausea And Vomiting Last Admin: 12/30/21 08:56 Dose: 4 mg Documented by: Oxycodone HCl (Oxycodone Hcl 5 Mg Tab) 5 mg PO QID PRN PRN Reason: Breakthrough Pain Pantoprazole Sodium (Pantoprazole 40 Mg Tablet) 40 mg PO BID@0700,2100 [facility] Last Admin: 12/30/21 06:07 Dose: 40 mg Documented by: Polyethylene Glycol (Polyethylene Glycol 3350 17 Gm Powd.Pack) 17 gm PO DAILY@0800 [facility] Last Admin: 12/30/21 07:42 Dose: Not Given Documented by: Rivaroxaban (Rivaroxaban 15 Mg Tab) 15 mg PO DAILY@1700 [facility]; Protocol Last Admin: 12/29/21 17:57 Dose: Not Given Documented by: Simethicone (Simethicone 80 Mg Chewable) 120 mg PO Q6H PRN PRN Reason: GAS Past medical history to include: Depression, diabetes, peripheral neuropathy, dementia, hypertension, insomnia, hyperlipidemia, atrial fibrillation, Parkinson's, 6 sinus syndrome with a pacemaker, gout, chronic kidney disease Social history: Patient lives at [facility]. Needs a Nba lift a wheelchair. Incontinent. She can feed herself. No history of smoking alcohol known. Family history: Patient cannot tell Physical examination: VITAL SIGNS: 98.5, 67, 17, 163/65, 99% 2 L GENERAL: laying in bed, some delirium. EYES: Pupils equal. Conjunctiva normal. HEENT: External appearance of nose and ears normal, oral cavity grossly normal. NECK: JVD unable to assess; masses not palpable. HEART: Heart sounds irregular; some edema. LUNGS:[ Respiratory rate increased; decreased breath sounds. ABDOMEN: Soft, nontender, liver spleen not palpable, no masses palpable. PSYCH: Delirium. MUSCULOSKELETAL:No Clubbing/cyanosis;muscles-grossly intact. Evidence of OA. Bilateral foot drop NEUROLOGICAL: [Cranial nerves grossly intact; no facial asymmetry, no power of the lower extremity. INVESTIGATIONS, reviewed in the clinical context: December 30: Sodium 1:30 potassium 5.1 (creatinine 3.05 2-D echo: EF 55-60%. EKG tracing personally reviewed by me-normal sinus rhythm. Chest x-ray film personally reviewed by me-cardiac idania. Venous prominence. Blunting of angles Investigations from [facility]: INR 1.5. Lipase 64. Troponin less than 0.012. Lactic acid 0.9. COVID 19: Not detected. Influenza A: Not detected Sodium 136 potassium 5.9 BUN 41 creatinine 3.1 LFTs normal. Assessment and plan: -Acute congestive heart failure. From diastolic dysfunction EF 55-60%. IV Lasix 40 mg every 12. Follow with cardiology. -Acute delirium: New diagnosis Multifactorial. DC Aricept. DC Lexapro. Change oxycodone to when necessary. -Depression Given patient's underlying dementia. Will DC Lexapro given risk-benefit b demie. -Diabetes mellitus type 2, chronically on insulin Lantus 15 units subcu daily at bedtime. Follow Accu-Cheks -Diabetic peripheral neuropathy Neurontin 300 mg daily at bedtime -Major cognitive impairment/dementia Aricept being discontinued given the risk balance benefit see how the patient does the same.. -Chronic medical debility, patient is on empirically. At her baseline needs Nba lift. Fall precautions -Essential hypertension Coreg 12.5 mg by mouth twice a day amlodipine 5 mg a day -Chronic gout Allopurinol 100 mg a day -Hyperlipidemia Lipitor 40 mg daily at bedtime -Parkinson's disease Sinemet 25/100 one tablet daily at bedtime -Chronic kidney disease stage III likely from diabetic nephropathy and hypertensive nephrosclerosis Follow renal function. Nephrology consult -Chronic pain syndrome Given patient multifactorial problems. Change oxycodone to when necessary. Continue evaluated pain regularly. IV Lasix. DC Lexapro Aricept. Change oxycodone to when necessary. Follow lites closely. Follow with consultants.
--- NOTE | 2021-12-30 13:08 | US ---
EXAMINATION TYPE: US kidneys/renal and bladder DATE OF EXAM: 12/30/2021 COMPARISON: Outside CT from yesterday CLINICAL HISTORY: andra. ANDRA EXAM MEASUREMENTS: Right Kidney: 8.4 x 3.7 x 3.3 cm Left Kidney: 8.0 x 4.4 x 3.3 cm Right Kidney: Cortical thinning. Left Kidney: Cortical thinning. Bladder: Catheter Bilateral Jets seen: No Symmetric small size to both kidneys with cortical thinning. Suboptimal evaluation due to large body habitus. Possible small calculus lower pole left kidney coronal image [address] is not clearly seen on ultrasound. No gross hydronephrosis. Akhtar catheter decompresses bladder. IMPRESSION: Suboptimal study. Evidence of chronic medical renal disease. No gross hydronephrosis seen bilaterally.
[2021-12-30] MEDS: allopurinoL 100 MG TAB PO SCH (13:10)
[2021-12-30 14:48] VITALS: BMI 27.9
[2021-12-30 16:35] LABS: Glucose,Whole Blood 145 mg/dL (75-99)
[2021-12-30] MEDS: RIVAROXABAN 15 MG TAB PO SCH (17:18)
[2021-12-30 18:36] LABS: Appearance,Urine Clear (Clear); Bilirubin,Urine Negative (Negative); Blood,Urine Trace (Negative); Color,Urine Light Yellow; Glucose,Urine (UA) Negative (Negative); Hyaline Casts,Urine 50 /lpf (0-2); Ketones,Urine Negative (Negative); Leukocyte Esterase,Urine Large (Negative); Mucus,Urine Rare /hpf; Nitrite,Urine Negative (Negative); Protein,Urine Trace (Negative); RBC,Urine 4 /hpf (0-5); Specific Gravity,Urine 1.009 (1.001-1.035); Squamous Epithelial Cell,Urine 1 /hpf (0-4); Urobilinogen,Urine <2.0 mg/dL (<2.0); WBC,Urine 29 /hpf (0-5)
[2021-12-30 20:05] LABS: Glucose,Whole Blood 110 mg/dL (75-99)
[2021-12-30] MEDS: INSULIN DETEMIR (LEVEMIR) 100 UNIT/ML SYR SQ SCH (20:41)
[2021-12-30] MEDS: CALCIUM CARB-VIT D 500 MG-5 MCG TAB PO SCH (20:48)
[2021-12-30] MEDS: MELATONIN 5 MG TABLET PO SCH (20:48)
[2021-12-30] MEDS: ATORVASTATIN 40 MG TAB PO SCH (20:48)
[2021-12-30] MEDS: CARBIDOPA-LEVODOPA 25-100 MG 1 EACH TAB PO SCH (20:48)
[2021-12-30] MEDS: GABAPENTIN 300 MG CAP PO SCH (20:48)
[2021-12-31] MEDS: ACETAMINOPHEN TAB 325 MG TAB PO PRN ×2 (03:26→12:02)
[2021-12-31 05:45] LABS: Glucose,Whole Blood 119 mg/dL (75-99)
[2021-12-31] MEDS: INSULIN ASPART (NovoLOG) 100 UNIT/ML VIAL SQ SCH ×3 (06:11→16:20)
[2021-12-31] MEDS: amLODIPine 5 MG TAB PO SCH (06:15)
[2021-12-31] MEDS: carvediloL 12.5 MG TAB PO SCH ×2 (06:18→16:39)
[2021-12-31] MEDS: ASPIRIN 81 MG PO SCH (06:18)
[2021-12-31] MEDS: PANTOPRAZOLE 40 MG TABLET PO SCH ×2 (06:18→20:55)
[2021-12-31] MEDS: FERROUS SULFATE 325 MG TAB PO SCH ×2 (06:18→16:39)
[2021-12-31 08:32] LABS: Calcium 7.3 mg/dL (8.4-10.2); Magnesium 2.7 mg/dL (1.6-2.3); Potassium 5.3 mmol/L (3.5-5.1)
[2021-12-31] MEDS: FUROSEMIDE 10 MG/ML 4 ML VIAL IV SCH ×2 (09:18→20:54)
[2021-12-31] MEDS: LIDOCAINE 5% PATCH TOPICAL SCH (09:18)
[2021-12-31] MEDS: polyethylene glycoL 3350 17 GM POWD.PACK PO SCH (09:18)
--- NOTE | 2021-12-31 09:19 | P.PN ---
Subjective Patient is seen in follow-up for acute kidney injury. Renal function slightly worse from diuresis. Resting in bed. Currently on room air. Has a Akhtar catheter. Nonoliguric. Denies chest pain or shortness of breath. Oral intake poor. Vital signs are stable. General: Awake. No acute distress. HEENT: Head exam is unremarkable. LUNGS: Breath sounds decreased. HEART: Rate and Rhythm are regular. ABDOMEN: Soft, obese. EXTREMITITES: 1+ edema. Objective - Vital Signs Vital signs: Vital Signs Temp 97.9 F 12/31/21 04:00 Pulse 67 12/31/21 04:00 Resp 18 12/31/21 04:00 BP 107/49 12/31/21 06:14 Pulse Ox 96 12/31/21 04:00 Intake & Output 12/30/21 12/31/21 12/31/21 18:59 06:59 18:59 Intake Total 20 50 Output Total 1000 Balance -980 50 Weight 76.2 kg 87.5 kg Intake: IV 20 Invasive Line 1 10 Invasive Line 2 10 Oral 50 Output: Urine 1000 Other: Voiding Method Indwelling Catheter Indwelling Catheter # Bowel Movements 1 - Labs CBC & Chem 7: 12/31/21 07:24 Labs: Abnormal Lab Results - Last 24 Hours (Table) 12/30/21 12/30/21 12/30/21 Range/Units 11:43 16:15 16:34 Sodium (137-145) mmol/L Potassium (3.5-5.1) mmol/L BUN (7-17) mg/dL Creatinine (0.52-1.04) mg/dL Glucose (74-99) mg/dL POC Glucose (mg/dL) 112 H 145 H (75-99) mg/dL Calcium (8.4-10.2) mg/dL Magnesium (1.6-2.3) mg/dL Urine Protein Trace H (Negative) Urine Blood Trace H (Negative) Ur Leukocyte Esterase Large H (Negative) Urine WBC 29 H (0-5) /hpf Urine WBC Clumps Rare H (None) /hpf Hyaline Casts 50 H (0-2) /lpf Urine Mucus Rare H (None) /hpf 12/30/21 12/31/21 12/31/21 Range/Units 20:03 05:42 07:24 Sodium 136 L (137-145) mmol/L Potassium 5.3 H (3.5-5.1) mmol/L BUN 48 H (7-17) mg/dL Creatinine 3.22 H (0.52-1.04) mg/dL Glucose 134 H (74-99) mg/dL POC Glucose (mg/dL) 110 H 119 H (75-99) mg/dL Calcium 7.3 L (8.4-10.2) mg/dL Magnesium 2.7 H (1.6-2.3) mg/dL Urine Protein (Negative) Urine Blood (Negative) Ur Leukocyte Esterase (Negative) Urine WBC (0-5) /hpf Urine WBC Clumps (None) /hpf Hyaline Casts (0-2) /lpf Urine Mucus (None) /hpf Assessment and Plan Plan: Assessment: 1. Acute kidney injury secondary to ATN secondary to cardiorenal syndrome. U nknown baseline renal function. Creatinine 3.05 on admission and is 3.22 today. Both kidneys noted to be atrophic. No evidence of hydronephrosis noted. UA shows trace protein. 2. Volume overload. 3. Diabetes mellitus. 4. Chronic kidney disease. Unknown stage. Will need to establish baseline renal function. Etiology is diabetic kidney disease. 5. Benign hypertension. 6. Acute on chronic diastolic CHF. Plan: Maintain IV Lasix. Continue to monitor renal function and urine output. Stop amlodipine. Check a.m. cortisol level. Encouraged oral intake.
[2021-12-31] MEDS: [UNRECOGNIZED DRUG - OTHER] PO SCH ×2 (11:50→16:21)
[2021-12-31 12:00] LABS: Glucose,Whole Blood 117 mg/dL (75-99)
[2021-12-31] MEDS: allopurinoL 100 MG TAB PO SCH (12:02)
--- NOTE | 2021-12-31 12:06 | P.PN ---
Subjective Progress Note Date: 12/31/21 Patient is examined today resting comfortably in bed. Patient is more alert today she is alert and orientated 2 and able to answer questions somewhat appropriately. Patient had an echocardiogram which showed a normal LV function with an ejection fraction of 55-60% and mild mitral valve regurgitation. Yesterday patient blood pressure became mildly hyportensive with a systolic pressure in the 90s, her Norvasc was discontinued. Patient reminded sinus rhythm on telemetry monitoring Objective - Vital Signs Vital signs: Vital Signs Temp 99.6 F 12/31/21 11:46 Pulse 65 12/31/21 11:46 Resp 18 12/31/21 11:46 BP 111/51 12/31/21 11:46 Pulse Ox 96 12/31/21 11:46 Intake & Output 12/30/21 12/31/21 12/31/21 18:59 06:59 18:59 Intake Total 20 50 Output Total 1000 Balance -980 50 Weight 76.2 kg 87.5 kg Intake: IV 20 Invasive Line 1 10 Invasive Line 2 10 Oral 50 Output: Urine 1000 Other: Voiding Method Indwelling Catheter Indwelling Catheter Indwelling Catheter # Bowel Movements 1 - Exam PHYSICAL EXAM: VITAL SIGNS: Reviewed. GENERAL: Well-developed in no acute distress. HEENT: Head is normocephalic. Pupils are equal, round. Sclerae anicteric. Mucous membranes of the mouth are moist. NECK: Supple. No JVD or thyromegaly RESPIRATORY: Respirations even and unlabored. Lungs diminished to auscultation bilaterally. On supplemental oxygen CARDIO: Regular rate and rhythm. S1 and S2 heard. No murmur or gallops. EXTREMITIES: Normal range of motion. No clubbing or cyanosis. Peripheral pulses intact. Negative for bilateral lower extremity edema NEURO: Orientated to person, time, mood is appropriate - Labs CBC & Chem 7: 12/31/21 07:24 Labs: Abnormal Lab Results - Last 24 Hours (Table) 12/30/21 12/30/21 12/30/21 Range/Units 16:15 16:34 20:03 Sodium (137-145) mmol/L Potassium (3.5-5.1) mmol/L BUN (7-17) mg/dL Creatinine (0.52-1.04) mg/dL Glucose (74-99) mg/dL POC Glucose (mg/dL) 145 H 110 H (75-99) mg/dL Calcium (8.4-10.2) mg/dL Magnesium (1.6-2.3) mg/dL Urine Protein Trace H (Negative) Urine Blood Trace H (Negative) Ur Leukocyte Esterase Large H (Negative) Urine WBC 29 H (0-5) /hpf Urine WBC Clumps Rare H (None) /hpf Hyaline Casts 50 H (0-2) /lpf Urine Mucus Rare H (None) /hpf 12/31/21 12/31/21 12/31/21 Range/Units 05:42 07:24 11:58 Sodium 136 L (137-145) mmol/L Potassium 5.3 H (3.5-5.1) mmol/L BUN 48 H (7-17) mg/dL Creatinine 3.22 H (0.52-1.04) mg/dL Glucose 134 H (74-99) mg/dL POC Glucose (mg/dL) 119 H 117 H (75-99) mg/dL Calcium 7.3 L (8.4-10.2) mg/dL Magnesium 2.7 H (1.6-2.3) mg/dL Urine Protein (Negative) Urine Blood (Negative) Ur Leukocyte Esterase (Negative) Urine WBC (0-5) /hpf Urine WBC Clumps (None) /hpf Hyaline Casts (0-2) /lpf Urine Mucus (None) /hpf Assessment and Plan Assessment: Acute diastolic congestive heart failure Proximal atrial fibrillation Chronic kidney disease stage III Sick sinus syndrome status post pacemaker Plan: Continue with all current cardiac medications SHAISTA inhibitor remain discontinued due to kidney disease Continue to monitor kidney function Continue with IV Lasix for diuresing Continue with telemetry monitoring Further recommendations based on clinical course The above impression and plan of care have been discussed and directed by the signing physician. Clau Lizama, nurse practitioner, acting as scribe for signing physician.
--- NOTE | 2021-12-31 16:15 | P.PN ---
Progress Note - Text Progress Note Date: 12/31/21 Chief Complaint: Short of breath This is a 76-year-old patient who follows with Dr. Farhad Flower. Seen by me in the ER. Resident of [facility]. Patient is a poor historian. Chronic stable medical conditions include depression, diabetes, peripheral neuropathy, dementia, hyp ertension, insomnia, hyperlipidemia, atrial fibrillation on xarelto, pacemaker for sick sinus syndrome, chronic kidney disease, gout, Parkinson's disease. Patient at baseline is known ambulatory. Patient is brought into [facility] this morning with a pulse ox down to 70%. Also been short of breath. Minimal cough. Since abdomen congestive heart failure. Sent down here. Started on IV Lasix. Patient herself is a limited historian. Daughter noticed to be short of breath. Admitted with acute congestive heart exacerbation. Started on IV Lasix. December 30: Laying in bed. A bit delirious. IV Lasix. Making urine. Rather sleepy. Oxycodone being changed to when necessary. DC Aricept and Lexapro given minimal benefit given her baseline state of dementia. Hopefully this should improve wakefulness. December 31: Eating somewhat better. On IV Lasix. Patient more awake after stopping Aricept Lexapro. Pain control. Not much urine output. Active Medications Acetaminophen (Acetaminophen Tab 325 Mg Tab) 650 mg PO Q4H PRN PRN Reason: Pain Last Admin: 12/31/21 12:02 Dose: 650 mg Documented by: Allopurinol (Allopurinol 100 Mg Tab) 100 mg PO DAILY@1200 [facility] Last Admin: 12/31/21 12:02 Dose: 100 mg Documented by: Aspirin (Aspirin 81 Mg) 81 mg PO DAILY@0700 [facility] Last Admin: 12/31/21 06:18 Dose: 81 mg Documented by: Atorvastatin Calcium (Atorvastatin 40 Mg Tab) 40 mg PO HS@2100 [facility] Last Admin: 12/30/21 20:48 Dose: 40 mg Documented by: Calcium Carbonate (Calcium Carb-Vit D 500 Mg-5 Mcg Tab) 1 each PO HS@2100 [facility] Last Admin: 12/30/21 20:48 Dose: 1 each Documented by: Calcium Carbonate/Glycine (Calcium Carbonate 500 Mg Chewable) 1,000 mg PO Q4HR PRN PRN Reason: Dyspepsia Carbidopa/Levodopa (Carbidopa-Levodopa 25-100 Mg 1 Each Tab) 1 each PO HS@1999 [facility] Last Admin: 12/30/21 20:48 Dose: 1 each Documented by: Carvedilol (Carvedilol 12.5 Mg Tab) 12.5 mg PO BID@0700,1700 [facility] Last Admin: 12/31/21 06:18 Dose: 12.5 mg Documented by: Ferrous Sulfate (Ferrous Sulfate 325 Mg Tab) 325 mg PO BID@0700,1700 [facility] Last Admin: 12/31/21 06:18 Dose: 325 mg Documented by: Furosemide (Furosemide 10 Mg/Ml 4 Ml Vial) 40 mg IV Q12HR [facility] Last Admin: 12/31/21 09:18 Dose: 40 mg Documented by: Gabapentin (Gabapentin 300 Mg Cap) 300 mg PO HS@2099 [facility] Last Admin: 12/30/21 20:48 Dose: 300 mg Documented by: Insulin Aspart (Insulin Aspart (Novolog) 100 Unit/Ml Vial) 0 unit SQ AC-TID [facility]; Protocol Last Admin: 12/31/21 12:00 Dose: Not Given Documented by: Insulin Detemir (Insulin Detemir (Levemir) 100 Unit/Ml Syr) 15 unit SQ HS@2099 [facility] Last Admin: 12/30/21 20:41 Dose: Not Given Documented by: Lactulose (Lactulose 20 Gm/30 Ml Cup) 20 gm PO DAILY PRN PRN Reason: Constipation Lidocaine (Lidocaine 5% Patch) 1 patch TOPICAL DAILY@1000 [facility] Last Admin: 12/31/21 09:18 Dose: 1 patch Documented by: Melatonin (Melatonin 5 Mg Tablet) 5 mg PO HS@2099 [facility] Last Admin: 12/30/21 20:48 Dose: 5 mg Documented by: Nitroglycerin (Nitroglycerin Sl Tabs 0.4 Mg Tab) 0.4 mg SUBLINGUAL Q5M PRN PRN Reason: Chest Pain Non-Formulary Medication (Med Plus) 120 ml PO BID@1200,1700 [facility] Last Admin: 12/31/21 11:50 Dose: Not Given Documented by: Ondansetron HCl (Ondansetron 4 Mg/2 Ml Vial) 4 mg IVP Q8HR PRN PRN Reason: Nausea And Vomiting Last Admin: 12/30/21 21:47 Dose: 4 mg Documented by: Oxycodone HCl (Oxycodone Hcl 5 Mg Tab) 5 mg PO QID PRN PRN Reason: Breakthrough Pain Last Admin: 12/30/21 21:46 Dose: 5 mg Documented by: Pantoprazole Sodium (Pantoprazole 40 Mg Tablet) 40 mg PO BID@0700,2100 [facility] Last Admin: 12/31/21 06:18 Dose: 40 mg Documented by: Polyethylene Glycol (Polyethylene Glycol 3350 17 Gm Powd.Pack) 17 gm PO DAILY@0800 [facility] Last Admin: 12/31/21 09:18 Dose: 17 gm Documented by: Rivaroxaban (Rivaroxaban 15 Mg Tab) 15 mg PO DAILY@1700 [facility]; Protocol Last Admin: 12/30/21 17:18 Dose: 15 mg Documented by: Simethicone (Simethicone 80 Mg Chewable) 120 mg PO Q6H PRN PRN Reason: GAS Past medical history to include: Depression, diabetes, peripheral neuropathy, dementia, hypertension, insomnia, hyperlipidemia, atrial fibrillation, Parkinson's, 6 sinus syndrome with a pacemaker, gout, chronic kidney disease Social history: Patient lives at [facility]. Needs a Nba lift a wheelchair. Incontinent. She can feed herself. No history of smoking alcohol known. Family history: Patient cannot tell Physical examination: VITAL SIGNS: 98.6, 65, 18, 111/51, 96% on 2 L GENERAL: laying in bed, some improvement in delirium EYES: Pupils equal. Conjunctiva normal. HEENT: External appearance of nose and ears normal, oral cavity grossly normal. NECK: JVD unable to assess; masses not palpable. HEART: Heart sounds irregular; some edema. LUNGS:[ Respiratory rate increased; decreased breath sounds. ABDOMEN: Soft, nontender, liver spleen not palpable, no masses palpable. PSYCH: Some improvement in delirium MUSCULOSKELETAL:No Clubbing/cyanosis;muscles-grossly intact. Evidence of OA. Bilateral foot drop NEUROLOGICAL: [Cranial nerves grossly intact; no facial asymmetry, no power of the lower extremity. INVESTIGATIONS, reviewed in the clinical context: December 31: Sodium 136 potassium 5.3 creatinine 48 creatinine 3.22 December 30: Sodium 1:30 potassium 5.1 (creatinine 3.05 2-D echo: EF 55-60%. EKG tracing personally reviewed by me-normal sinus rhythm. Chest x-ray film personally reviewed by me-cardiac megaly. Venous prominence. Blunting of angles Investigations from [facility]: INR 1.5. Lipase 64. Troponin less than 0.012. Lactic acid 0.9. COVID 19: Not detected. Influenza A: Not detected Sodium 136 potassium 5.9 BUN 41 creatinine 3.1 LFTs normal. Assessment and plan: -Acute congestive heart failure. From diastolic dysfunction EF 55-60%.: Slow to respond IV Lasix 40 mg every 12. Follow with cardiology. -Acute delirium: Slight improvement Multifactorial. DC Aricept. DC Lexapro. oxycodone - when necessary. -Depression Given patient's underlying dementia. Will DC Lexapro given risk-benefit balance. -Diabetes mellitus type 2, chronically on insulin Lantus 15 units subcu daily at bedtime. Follow Accu-Cheks -Diabetic peripheral neuropathy Neurontin 300 mg daily at bedtime -Major cognitive impairment/dementia Aricept being discontinued given the risk balance benefit see how the patient does the same.. -Chronic medical debility, patient is on empirically. At her baseline needs Nba lift. Fall precautions -Essential hypertension Coreg 12.5 mg by mouth twice a day amlodipine 5 mg a day -Chronic gout Allopurinol 100 mg a day -Hyperlipidemia Lipitor 40 mg daily at bedtime -Parkinson's disease Sinemet 25/100 one tablet daily at bedtime -Chronic kidney disease stage III likely from diabetic nephropathy and hypertensive nephrosclerosis Follow renal function. Nephrology consult -Chronic pain syndrome Given patient multifactorial problems. Change oxycodone to when necessary. Continue evaluated pain regularly. IV Lasix. Follow lites closely. Feeding with assistance. Follow with cardiology and nephrology. Other medications to continue. Follow labs.
[2021-12-31 16:17] LABS: Glucose,Whole Blood 129 mg/dL (75-99)
[2021-12-31] MEDS: RIVAROXABAN 15 MG TAB PO SCH (16:39)
[2021-12-31 19:59] LABS: Glucose,Whole Blood 148 mg/dL (75-99)
[2021-12-31] MEDS: CALCIUM CARB-VIT D 500 MG-5 MCG TAB PO SCH (20:54)
[2021-12-31] MEDS: GABAPENTIN 300 MG CAP PO SCH (20:54)
[2021-12-31] MEDS: CARBIDOPA-LEVODOPA 25-100 MG 1 EACH TAB PO SCH (20:54)
[2021-12-31] MEDS: ATORVASTATIN 40 MG TAB PO SCH (20:55)
[2021-12-31] MEDS: MELATONIN 5 MG TABLET PO SCH (20:55)
[2021-12-31] MEDS: INSULIN DETEMIR (LEVEMIR) 100 UNIT/ML SYR SQ SCH (20:55)
[2022-01-01 05:42] LABS: Glucose,Whole Blood 110 mg/dL (75-99)
[2022-01-01] MEDS: INSULIN ASPART (NovoLOG) 100 UNIT/ML VIAL SQ SCH ×3 (06:06→17:13)
[2022-01-01] MEDS: carvediloL 12.5 MG TAB PO SCH ×2 (06:11→17:13)
[2022-01-01] MEDS: PANTOPRAZOLE 40 MG TABLET PO SCH ×2 (06:11→21:01)
[2022-01-01] MEDS: ASPIRIN 81 MG PO SCH (06:11)
[2022-01-01] MEDS: FERROUS SULFATE 325 MG TAB PO SCH ×2 (06:11→17:13)
[2022-01-01] MEDS: LIDOCAINE 5% PATCH TOPICAL SCH (08:22)
[2022-01-01] MEDS: FUROSEMIDE 10 MG/ML 4 ML VIAL IV SCH (08:22)
[2022-01-01] MEDS: polyethylene glycoL 3350 17 GM POWD.PACK PO SCH (08:22)
[2022-01-01 09:14] LABS: Calcium 7.5 mg/dL (8.4-10.2); Magnesium 2.6 mg/dL (1.6-2.3); Potassium 4.9 mmol/L (3.5-5.1)
--- NOTE | 2022-01-01 11:12 | P.PN ---
Progress Note - Text Progress Note Date: 01/01/22 Chief Complaint: Short of breath This is a 76-year-old patient who follows with Dr. Farhad Flower. Seen by me in the ER. Resident of [facility]. Patient is a poor historian. Chronic stable medical conditions include depression, diabetes, peripheral neuropathy, dementia, hyp ertension, insomnia, hyperlipidemia, atrial fibrillation on xarelto, pacemaker for sick sinus syndrome, chronic kidney disease, gout, Parkinson's disease. Patient at baseline is known ambulatory. Patient is brought into [facility] this morning with a pulse ox down to 70%. Also been short of breath. Minimal cough. Since abdomen congestive heart failure. Sent down here. Started on IV Lasix. Patient herself is a limited historian. Daughter noticed to be short of breath. Admitted with acute congestive heart exacerbation. Started on IV Lasix. December 30: Laying in bed. A bit delirious. IV Lasix. Making urine. Rather sleepy. Oxycodone being changed to when necessary. DC Aricept and Lexapro given minimal benefit given her baseline state of dementia. Hopefully this should improve wakefulness. December 31: Eating somewhat better. On IV Lasix. Patient more awake after stopping Aricept Lexapro. Pain control. Not much urine output May : Eating about 25-50%. More awake. Spoke to the nurse. Answer questions. Breathing better.. Creatinine is climbing. Hold Lasix. Active Medications Acetaminophen (Acetaminophen Tab 325 Mg Tab) 650 mg PO Q4H PRN PRN Reason: Pain Last Admin: 12/31/21 12:02 Dose: 650 mg Documented by: Allopurinol (Allopurinol 100 Mg Tab) 100 mg PO DAILY@1200 [facility] Last Admin: 12/31/21 12:02 Dose: 100 mg Documented by: Aspirin (Aspirin 81 Mg) 81 mg PO DAILY@0700 [facility] Last Admin: 01/01/22 06:11 Dose: 81 mg Documented by: Atorvastatin Calcium (Atorvastatin 40 Mg Tab) 40 mg PO HS@2100 [facility] Last Admin: 12/31/21 20:55 Dose: 40 mg Documented by: Calcium Carbonate (Calcium Carb-Vit D 500 Mg-5 Mcg Tab) 1 each PO HS@2100 [facility] Last Admin: 12/31/21 20:54 Dose: 1 each Documented by: Calcium Carbonate/Glycine (Calcium Carbonate 500 Mg Chewable) 1,000 mg PO Q4HR PRN PRN Reason: Dyspepsia Carbidopa/Levodopa (Carbidopa-Levodopa 25-100 Mg 1 Each Tab) 1 each PO HS@1999 [facility] Last Admin: 12/31/21 20:54 Dose: 1 each Documented by: Carvedilol (Carvedilol 12.5 Mg Tab) 12.5 mg PO BID@0700,1700 [facility] Last Admin: 01/01/22 06:11 Dose: 12.5 mg Documented by: Ferrous Sulfate (Ferrous Sulfate 325 Mg Tab) 325 mg PO BID@0700,1700 [facility] Last Admin: 01/01/22 06:11 Dose: 325 mg Documented by: Furosemide (Furosemide 10 Mg/Ml 4 Ml Vial) 40 mg IV Q12HR [facility] Last Admin: 01/01/22 08:22 Dose: 40 mg Documented by: Gabapentin (Gabapentin 300 Mg Cap) 300 mg PO HS@2099 [facility] Last Admin: 12/31/21 20:54 Dose: 300 mg Documented by: Insulin Aspart (Insulin Aspart (Novolog) 100 Unit/Ml Vial) 0 unit SQ AC-TID [facility] ; Protocol Last Admin: 01/01/22 06:06 Dose: Not Given Documented by: Insulin Detemir (Insulin Detemir (Levemir) 100 Unit/Ml Syr) 15 unit SQ HS@2099 [facility] Last Admin: 12/31/21 20:55 Dose: 15 unit Documented by: Lactulose (Lactulose 20 Gm/30 Ml Cup) 20 gm PO DAILY PRN PRN Reason: Constipation Lidocaine (Lidocaine 5% Patch) 1 patch TOPICAL DAILY@1000 [facility] Last Admin: 01/01/22 08:22 Dose: 1 patch Documented by: Melatonin (Melatonin 5 Mg Tablet) 5 mg PO HS@2099 [facility] Last Admin: 12/31/21 20:55 Dose: 5 mg Documented by: Nitroglycerin (Nitroglycerin Sl Tabs 0.4 Mg Tab) 0.4 mg SUBLINGUAL Q5M PRN PRN Reason: Chest Pain Non-Formulary Medication (Med Plus) 120 ml PO BID@1200,1700 [facility] Last Admin: 12/31/21 16:21 Dose: Not Given Documented by: Ondansetron HCl (Ondansetron 4 Mg/2 Ml Vial) 4 mg IVP Q8HR PRN PRN Reason: Nausea And Vomiting Last Admin: 12/30/21 21:47 Dose: 4 mg Documented by: Oxycodone HCl (Oxycodone Hcl 5 Mg Tab) 5 mg PO QID PRN PRN Reason: Breakthrough Pain Last Admin: 12/31/21 16:39 Dose: 5 mg Documented by: Pantoprazole Sodium (Pantoprazole 40 Mg Tablet) 40 mg PO BID@0700,2100 [facility] Last Admin: 01/01/22 06:11 Dose: 40 mg Documented by: Polyethylene Glycol (Polyethylene Glycol 3350 17 Gm Powd.Pack) 17 gm PO DAILY@0800 [facility] Last Admin: 01/01/22 08:22 Dose: Not Given Documented by: Rivaroxaban (Rivaroxaban 15 Mg Tab) 15 mg PO DAILY@1700 [facility]; Protocol Last Admin: 12/31/21 16:39 Dose: 15 mg Documented by: Simethicone (Simethicone 80 Mg Chewable) 120 mg PO Q6H PRN PRN Reason: GAS Past medical history to include: Depression, diabetes, peripheral neuropathy, dementia, hypertension, insomnia, hyperlipidemia, atrial fibrillation, Parkinson's, 6 sinus syndrome with a pacemaker, gout, chronic kidney disease Social history: Patient lives at [facility]. Needs a Nba lift a wheelchair. Incontinent. She can feed herself. No history of smoking alcohol known. Family history: Patient cannot tell Physical examination: VITAL SIGNS: 99.3, 78, 18, 117/62, 100% on 2 L GENERAL: laying in bed, but more awake EYES: Pupils equal. Conjunctiva normal. HEENT: External appearance of nose and ears normal, oral cavity grossly normal. NECK: JVD unable to assess; masses not palpable. HEART: Heart sounds irregular; some edema. LUNGS:[ Respiratory rate increased; decreased breath sounds. ABDOMEN: Soft, nontender, liver spleen not palpable, no masses palpable. PSYCH: Answering simple questions MUSCULOSKELETAL:No Clubbing/cyanosis;muscles-grossly intact. Evidence of OA. Bilateral foot drop NEUROLOGICAL: [Cranial nerves grossly intact; no facial asymmetry, no power of the lower extremity. INVESTIGATIONS, reviewed in the clinical context: January 01: Sodium 138 BUN 49 creatinine 3.55 December 31: Sodium 136 potassium 5.3 creatinine 48 creatinine 3.22 December 30: Sodium 1:30 potassium 5.1 (creatinine 3.05 2-D echo: EF 55-60%. EKG tracing personally reviewed by me-normal sinus rhythm. Chest x-ray film personally reviewed by me-cardiac megaly. Venous prominence. Blunting of angles Investigations from [facility]: INR 1.5. Lipase 64. Troponin less than 0.012. Lactic acid 0.9. COVID 19: Not detected. Influenza A: Not detected Sodium 136 potassium 5.9 BUN 41 creatinine 3.1 LFTs normal. Assessment and plan: -Acute congestive heart failure. From diastolic dysfunction EF 55-60%.: Better . IV Lasix 40 mg every 12. Change to by mouth Lasix. -Acute delirium: Some improvement Multifactorial. DC Aricept. DC Lexapro. oxycodone - when necessary. -Depression Given patient's underlying dementia. Will DC Lexapro given risk-benefit balance. -Diabetes mellitus type 2, chronically on insulin Lantus 15 units subcu daily at bedtime. Follow Accu-Cheks -Diabetic peripheral neuropathy Neurontin 300 mg daily at bedtime -Major cognitive impairment/dementia Aricept being discontinued given the risk balance benefit see how the patient does the same.. -Chronic medical debility, patient is on empirically. At her baseline needs Nba lift. Fall precautions -Essential hypertension Coreg 12.5 mg by mouth twice a day amlodipine 5 mg a day -Chronic gout Allopurinol 100 mg a day -Hyperlipidemia Lipitor 40 mg daily at bedtime -Parkinson's disease Sinemet 25/100 one tablet daily at bedtime -Chronic kidney disease stage III likely from diabetic nephropathy and hypertensive nephrosclerosis Follow renal function. Nephrology consult -Chronic pain syndrome Given patient multifactorial problems. Change oxycodone to when necessary. Continue evaluated pain regularly. Change Lasix to by mouth.. Follow with cardiology and nephrology. Other medications to continue. Follow labs.
--- NOTE | 2022-01-01 11:59 | P.PN ---
Subjective Patient is seen in follow-up for acute kidney injury. Renal function worse from diuresis. Resting in bed. Currently on 2 L cannula. Has a Akhtar catheter. Nonoliguric. Denies chest pain or shortness of breath. Oral intake poor. Vital signs are stable. General: Awake. No acute distress. HEENT: Head exam is unremarkable. LUNGS: Breath sounds decreased. HEART: Rate and Rhythm are regular. ABDOMEN: Soft, obese. EXTREMITITES: 1+ edema. Objective - Vital Signs Vital signs: Vital Signs Temp 99.3 F 01/01/22 09:48 Pulse 78 01/01/22 09:49 Resp 18 01/01/22 09:49 BP 117/62 01/01/22 09:48 Pulse Ox 100 01/01/22 09:48 Intake & Output 12/31/21 01/01/22 01/01/22 18:59 06:59 18:59 Intake Total 168 Output Total 475 520 250 Balance -307 520 -250 Weight 88 kg Intake: Oral 168 Output: Urine 475 520 250 Other: Voiding Method Indwelling Catheter Indwelling Catheter Indwelling Catheter # Bowel Movements 1 - Labs CBC & Chem 7: 01/01/22 08:15 Labs: Abnormal Lab Results - Last 24 Hours (Table) 12/31/21 12/31/21 12/31/21 Range/Units 11:58 16:16 19:57 BUN (7-17) mg/dL Creatinine (0.52-1.04) mg/dL Glucose (74-99) mg/dL POC Glucose (mg/dL) 117 H 129 H 148 H (75-99) mg/dL Calcium (8.4-10.2) mg/dL Magnesium (1.6-2.3) mg/dL 01/01/22 01/01/22 Range/Units 05:39 08:15 BUN 49 H (7-17) mg/dL Creatinine 3.55 H (0.52-1.04) mg/dL Glucose 102 H (74-99) mg/dL POC Glucose (mg/dL) 110 H (75-99) mg/dL Calcium 7.5 L (8.4-10.2) mg/dL Magnesium 2.6 H (1.6-2.3) mg/dL Assessment and Plan Plan: Assessment: 1. Acute kidney injury secondary to ATN secondary to cardiorenal syndrome. Unknown baseline renal function. Creatinine 3.05 on admission and is 3.55 today. Both kidneys noted to be atrophic. No evidence of hydronephrosis noted. UA shows trace protein. 2. Volume overload. 3. Diabetes mellitus. 4. Chronic kidney disease. Unknown stage. Will need to establish baseline renal function. Etiology is diabetic kidney disease. 5. Benign hypertension. Stable. 6. Acute on chronic diastolic CHF. Plan: Maintain IV Lasix for now. Continue to monitor renal function and urine output. Follow-up a.m. cortisol level. Encouraged oral intake.
[2022-01-01 12:05] LABS: Glucose,Whole Blood 123 mg/dL (75-99)
[2022-01-01] MEDS: [UNRECOGNIZED DRUG - OTHER] PO SCH ×2 (12:12→17:13)
[2022-01-01] MEDS: allopurinoL 100 MG TAB PO SCH (12:27)
--- NOTE | 2022-01-01 14:18 | P.PN ---
Subjective Patient is examined today sleeping comfortably in bed with no signs of acute distress. She denies chest pain or increased shortness of breath. Potassium is 4.9 today. BUN and creatinine continue to elevate BUN was 49 creatinine is 3.5. She remains on IV Lasix 40 mg twice a day to be dosed by nephrology. Patient reminded sinus rhythm on telemetry monitoring Objective - Vital Signs Vital signs: Vital Signs Temp 98.9 F 01/01/22 11:58 Pulse 75 01/01/22 11:58 Resp 18 01/01/22 11:58 BP 115/48 01/01/22 11:58 Pulse Ox 98 01/01/22 11:58 Intake & Output 12/31/21 01/01/22 01/01/22 18:59 06:59 18:59 Intake Total 168 Output Total 475 520 750 Balance -307 -520 -750 Weight 88 kg Intake: Oral 168 Output: Urine 475 520 750 Uretheral (Akhtar) 500 Other: Voiding Method Indwelling Catheter Indwelling Catheter Indwelling Catheter # Bowel Movements 1 - Exam PHYSICAL EXAM: VITAL SIGNS: Reviewed. GENERAL: Well-developed in no acute distress. HEENT: Head is normocephalic. Pupils are equal, round. Sclerae anicteric. Mucous membranes of the mouth are moist. NECK: Supple. No JVD or thyromegaly RESPIRATORY: Respirations even and unlabored. Lungs diminished to auscultation bilaterally. On supplemental oxygen CARDIO: Regular rate and rhythm. S1 and S2 heard. No murmur or gallops. EXTREMITIES: Normal range of motion. No clubbing or cyanosis. Peripheral pulses intact. Negative for bilateral lower extremity edema NEURO: Orientated to person, time, mood is appropriate - Labs CBC & Chem 7: 01/01/22 08:15 Labs: Abnormal Lab Results - Last 24 Hours (Table) 12/31/21 12/31/21 01/01/22 Range/Units 16:16 19:57 05:39 BUN (7-17) mg/dL Creatinine (0.52-1.04) mg/dL Glucose (74-99) mg/dL POC Glucose (mg/dL) 129 H 148 H 110 H (75-99) mg/dL Calcium (8.4-10.2) mg/dL Magnesium (1.6-2.3) mg/dL 01/01/22 01/01/22 Range/Units 08:15 12:02 BUN 49 H (7-17) mg/dL Creatinine 3.55 H (0.52-1.04) mg/dL Glucose 102 H (74-99) mg/dL POC Glucose (mg/dL) 123 H (75-99) mg/dL Calcium 7.5 L (8.4-10.2) mg/dL Magnesium 2.6 H (1.6-2.3) mg/dL Assessment and Plan Assessment: Acute diastolic congestive heart failure Proximal atrial fibrillation Chronic kidney disease stage III Sick sinus syndrome status post pacemaker Plan: Continue with all current cardiac medications SHAISTA inhibitor remain discontinued due to kidney disease Continue to monitor kidney function Continue with IV Lasix for diuresing to be dosed by nephrology Continue with telemetry monitoring Further recommendations based on clinical course The above impression and plan of care have been discussed and directed by the signing physician. Clau Lizama, nurse practitioner, acting as scribe for signing physician.
[2022-01-01 16:22] LABS: Glucose,Whole Blood 137 mg/dL (75-99)
[2022-01-01] MEDS: RIVAROXABAN 15 MG TAB PO SCH (17:13)
[2022-01-01 20:21] LABS: Glucose,Whole Blood 127 mg/dL (75-99)
[2022-01-01] MEDS: CALCIUM CARB-VIT D 500 MG-5 MCG TAB PO SCH (21:01)
[2022-01-01] MEDS: MELATONIN 5 MG TABLET PO SCH (21:01)
[2022-01-01] MEDS: GABAPENTIN 300 MG CAP PO SCH (21:01)
[2022-01-01] MEDS: CARBIDOPA-LEVODOPA 25-100 MG 1 EACH TAB PO SCH (21:02)
[2022-01-01] MEDS: ATORVASTATIN 40 MG TAB PO SCH (21:02)
[2022-01-01] MEDS: INSULIN DETEMIR (LEVEMIR) 100 UNIT/ML SYR SQ SCH (21:02)
[2022-01-02 06:27] LABS: Glucose,Whole Blood 76 mg/dL (75-99)
[2022-01-02] MEDS: PANTOPRAZOLE 40 MG TABLET PO SCH ×2 (06:33→21:45)
[2022-01-02] MEDS: ASPIRIN 81 MG PO SCH (06:33)
[2022-01-02] MEDS: FERROUS SULFATE 325 MG TAB PO SCH ×2 (06:33→16:39)
[2022-01-02] MEDS: INSULIN ASPART (NovoLOG) 100 UNIT/ML VIAL SQ SCH ×3 (06:33→16:39)
[2022-01-02] MEDS: carvediloL 12.5 MG TAB PO SCH ×2 (06:33→16:39)
--- NOTE | 2022-01-02 07:33 | XR ---
EXAMINATION TYPE: XR chest 1V portable DATE OF EXAM: 01/02/2022 HISTORY: Shortness of breath. COMPARISON: 12/29/2021 TECHNIQUE: Single view of the chest is submitted. FINDINGS: Demonstrated are scattered senescent parenchymal change. Stable pulmonary venous congestion with scattered nodular infiltrates and basilar effusions. The heart is stable. Hilar and mediastinal structures are within normal limits. Degenerative changes are seen of the dorsal spine. IMPRESSION: 1. Stable pulmonary venous congestion with scattered nodular infiltrates and basilar effusions.
[2022-01-02 08:09] LABS: Calcium 7.5 mg/dL (8.4-10.2); Magnesium 2.4 mg/dL (1.6-2.3); Potassium 4.7 mmol/L (3.5-5.1)
[2022-01-02] MEDS: LIDOCAINE 5% PATCH TOPICAL SCH (09:35)
[2022-01-02] MEDS: FUROSEMIDE 40 MG TAB PO SCH (09:35)
[2022-01-02] MEDS: polyethylene glycoL 3350 17 GM POWD.PACK PO SCH (09:39)
--- NOTE | 2022-01-02 10:09 | P.PN ---
Subjective Patient is seen in follow-up for acute kidney injury. Renal function little better today. On oral Lasix. Resting in bed. Currently on 2 L cannula. Has a Akhtar catheter. Nonoliguric. Denies chest pain or shortness of breath. Oral intake fair. Vital signs are stable. General: Awake. No acute distress. HEENT: Head exam is unremarkable. LUNGS: Breath sounds decreased. HEART: Rate and Rhythm are regular. ABDOMEN: Soft, obese. EXTREMITITES: 2+ edema. Objective - Vital Signs Vital signs: Vital Signs Temp 98 F 01/02/22 09:35 Pulse 64 01/02/22 09:35 Resp 16 01/02/22 09:35 BP 101/60 01/02/22 09:35 Pulse Ox 98 01/02/22 09:35 Intake & Output 01/01/22 01/02/22 01/02/22 18:59 06:59 18:59 Output Total 750 660 Balance -750 -660 Weight 82.5 kg Output: Urine 750 660 Uretheral (Akhtar) 500 660 Other: Voiding Method Indwelling Catheter Indwelling Catheter # Bowel Movements 1 - Labs CBC & Chem 7: 01/02/22 07:14 Labs: Abnormal Lab Results - Last 24 Hours (Table) 01/01/22 01/01/22 01/01/22 Range/Units 12:02 16:20 20:18 BUN (7-17) mg/dL Creatinine (0.52-1.04) mg/dL POC Glucose (mg/dL) 123 H 137 H 127 H (75-99) mg/dL Calcium (8.4-10.2) mg/dL Magnesium (1.6-2.3) mg/dL 01/02/22 Range/Units 07:14 BUN 49 H (7-17) mg/dL Creatinine 3.26 H (0.52-1.04) mg/dL POC Glucose (mg/dL) (75-99) mg/dL Calcium 7.5 L (8.4-10.2) mg/dL Magnesium 2.4 H (1.6-2.3) mg/dL Assessment and Plan Plan: Assessment: 1. Acute kidney injury secondary to ATN secondary to cardiorenal syndrome. Unknown baseline renal function. Creatinine 3.05 on admission and peaked at 3.55 this admission - 3.26 today. Both kidneys noted to be atrophic. No evidence of hydronephrosis noted. UA shows trace protein. 2. Volume overload. 3. Diabetes mellitus. 4. Chronic kidney disease. Unknown stage. Will need to establish baseline renal function. Etiology is diabetic kidney disease. 5. Benign hypertension. Stable. 6. Acute on chronic diastolic CHF. Plan Maintain oral Lasix. Additional Lasix 40 mg IV once this afternoon. Continue to monitor renal function and urine output. Follow-up a.m. cortisol level. Encouraged oral intake.
[2022-01-02 11:40] LABS: Glucose,Whole Blood 116 mg/dL (75-99)
[2022-01-02] MEDS: allopurinoL 100 MG TAB PO SCH (12:03)
--- NOTE | 2022-01-02 13:20 | P.PN ---
Progress Note - Text Progress Note Date: 01/02/22 Chief Complaint: Short of breath This is a 76-year-old patient who follows with Dr. Farhad Flower. Seen by me in the ER. Resident of [facility]. Patient is a poor historian. Chronic stable medical conditions include depression, diabetes, peripheral neuropathy, dementia, hyp ertension, insomnia, hyperlipidemia, atrial fibrillation on xarelto, pacemaker for sick sinus syndrome, chronic kidney disease, gout, Parkinson's disease. Patient at baseline is known ambulatory. Patient is brought into [facility] this morning with a pulse ox down to 70%. Also been short of breath. Minimal cough. Since abdomen congestive heart failure. Sent down here. Started on IV Lasix. Patient herself is a limited historian. Daughter noticed to be short of breath. Admitted with acute congestive heart exacerbation. Started on IV Lasix. December 30: Laying in bed. A bit delirious. IV Lasix. Making urine. Rather sleepy. Oxycodone being changed to when necessary. DC Aricept and Lexapro given minimal benefit given her baseline state of dementia. Hopefully this should improve wakefulness. December 31: Eating somewhat better. On IV Lasix. Patient more awake after stopping Aricept Lexapro. Pain control. Not much urine output January 1: Eating about 25-50%. More awake. Spoke to the nurse. Answer questions. Breathing better.. Creatinine is climbing. Hold Lasix. January 2: Breathing better. Eating about 50%. By mouth Lasix. Follow with nephrology. Active Medications Acetaminophen (Acetaminophen Tab 325 Mg Tab) 650 mg PO Q4H PRN PRN Reason: Pain Last Admin: 12/31/21 12:02 Dose: 650 mg Documented by: Allopurinol (Allopurinol 100 Mg Tab) 100 mg PO DAILY@1200 [facility] Last Admin: 01/02/22 12:03 Dose: 100 mg Documented by: Aspirin (Aspirin 81 Mg) 81 mg PO DAILY@0700 [facility] Last Admin: 01/02/22 06:33 Dose: 81 mg Documented by: Atorvastatin Calcium (Atorvastatin 40 Mg Tab) 40 mg PO HS@2100 [facility] Last Admin: 01/01/22 21:02 Dose: 40 mg Documented by: Calcium Carbonate (Calcium Carb-Vit D 500 Mg-5 Mcg Tab) 1 each PO HS@2100 [facility] Last Admin: 01/01/22 21:01 Dose: 1 each Documented by: Calcium Carbonate/Glycine (Calcium Carbonate 500 Mg Chewable) 1,000 mg PO Q4HR PRN PRN Reason: Dyspepsia Carbidopa/Levodopa (Carbidopa-Levodopa 25-100 Mg 1 Each Tab) 1 each PO HS@2000 [facility] Last Admin: 01/01/22 21:02 Dose: 1 each Documented by: Carvedilol (Carvedilol 12.5 Mg Tab) 12.5 mg PO BID@0700,1700 [facility] Last Admin: 01/02/22 06:33 Dose: 12.5 mg Documented by: Ferrous Sulfate (Ferrous Sulfate 325 Mg Tab) 325 mg PO BID@0700,1700 [facility] Last Admin: 01/02/22 06:33 Dose: 325 mg Documented by: Furosemide (Furosemide 40 Mg Tab) 40 mg PO DAILY [facility] Last Admin: 01/02/22 09:35 Dose: 40 mg Documented by: Furosemide (Furosemide 10 Mg/Ml 4 Ml Vial) 40 mg IV ONCE ONE Stop: 01/02/22 15:01 Gabapentin (Gabapentin 300 Mg Cap) 300 mg PO HS@2100 [facility] Last Admin: 01/01/22 21:01 Dose: 300 mg Documented by: Insulin Aspart (Insulin Aspart (Novolog) 100 Unit/Ml Vial) 0 unit SQ AC-TID [facility]; Protocol Last Admin: 01/02/22 12:03 Dose: Not Given Documented by: Insulin Detemir (Insulin Detemir (Levemir) 100 Unit/Ml Syr) 15 unit SQ HS@2100 [facility] Last Admin: 01/01/22 21:02 Dose: 15 unit Documented by: Lactulose (Lactulose 20 Gm/30 Ml Cup) 20 gm PO DAILY PRN PRN Reason: Constipation Lidocaine (Lidocaine 5% Patch) 1 patch TOPICAL DAILY@1000 [facility] Last Admin: 01/02/22 09:35 Dose: 1 patch Documented by: Melatonin (Melatonin 5 Mg Tablet) 5 mg PO HS@2100 [facility] Last Admin: 01/01/22 21:01 Dose: 5 mg Documented by: Nitroglycerin (Nitroglycerin Sl Tabs 0.4 Mg Tab) 0.4 mg SUBLINGUAL Q5M PRN PRN Reason: Chest Pain Non-Formulary Medication (Med Plus) 120 ml PO BID@1200,1700 [facility] Last Admin: 01/01/22 17:13 Dose: Not Given Documented by: Ondansetron HCl (Ondansetron 4 Mg/2 Ml Vial) 4 mg IVP Q8HR PRN PRN Reason: Nausea And Vomiting Last Admin: 12/30/21 21:47 Dose: 4 mg Documented by: Oxycodone HCl (Oxycodone Hcl 5 Mg Tab) 5 mg PO QID PRN PRN Reason: Breakthrough Pain Last Admin: 12/31/21 16:39 Dose: 5 mg Documented by: Pantoprazole Sodium (Pantoprazole 40 Mg Tablet) 40 mg PO BID@0700,2100 [facility] Last Admin: 01/02/22 06:33 Dose: 40 mg Documented by: Polyethylene Glycol (Polyethylene Glycol 3350 17 Gm Powd.Pack) 17 gm PO DAILY@0800 [facility] Last Admin: 01/02/22 09:39 Dose: Not Given Documented by: Rivaroxaban (Rivaroxaban 15 Mg Tab) 15 mg PO DAILY@1700 [facility]; Protocol Last Admin: 01/01/22 17:13 Dose: 15 mg Documented by: Simethicone (Simethicone 80 Mg Chewable) 120 mg PO Q6H PRN PRN Reason: GAS Past medical history to include: Depression, diabetes, peripheral neuropathy, dementia, hypertension, insomnia, hyperlipidemia, atrial fibrillation, Parkinson's, 6 sinus syndrome with a pacemaker, gout, chronic kidney disease Social history: Patient lives at [facility]. Needs a Nba lift a wheelchair. Incontinent. She can feed herself. No history of smoking alcohol known. Family history: Patient cannot tell Physical examination: VITAL SIGNS: 98, 64, 16, 101/60, 98% on 2 L GENERAL: laying in bed, less tired EYES: Pupils equal. Conjunctiva normal. HEENT: External appearance of nose and ears normal, oral cavity grossly normal. NECK: JVD unable to assess; masses not palpable. HEART: Heart sounds irregular; some edema. LUNGS:[ Respiratory rate increased; decreased breath sounds. ABDOMEN: Soft, nontender, liver spleen not palpable, no masses palpable. PSYCH: Answering simple questions MUSCULOSKELETAL:No Clubbing/cyanosis;muscles-grossly intact. Evidence of OA. Bilateral foot drop NEUROLOGICAL: [Cranial nerves grossly intact; no facial asymmetry, no power of the lower extremity. INVESTIGATIONS, reviewed in the clinical context: January 02: Potassium 4.7. 49 creatinine 3.26 January 01: Sodium 138 BUN 49 creatinine 3.55 December 31: Sodium 136 potassium 5.3 creatinine 48 creatinine 3.22 December 30: Sodium 1:30 potassium 5.1 (creatinine 3.05 2-D echo: EF 55-60%. EKG tracing personally reviewed by me-normal sinus rhythm. Chest x-ray film personally reviewed by me-cardiac megaly. Venous prominence. Blunting of angles Investigations from [facility]: INR 1.5. Lipase 64. Troponin less than 0.012. Lactic acid 0.9. COVID 19: Not detected. Influenza A: Not detected Sodium 136 potassium 5.9 BUN 41 creatinine 3.1 LFTs normal. Assessment and plan: -Acute congestive heart failure. From diastolic dysfunction EF 55-60%.: Better. IV Lasix 40 mg every 12. Now on Lasix 40 mg by mouth daily -Acute delirium: Some improvement Multifactorial. DC Aricept. DC Lexapro. oxycodone - when necessary. -Depression Given patient's underlying dementia. Will DC Lexapro given risk-benefit balance. -Diabetes mellitus type 2, chronically on insulin Lantus 15 units subcu daily at bedtime. Follow Accu-Cheks -Diabetic peripheral neuropathy Neurontin 300 mg daily at bedtime -Major cognitive impairment/dementia Aricept being discontinued given the risk balance benefit see how the patient does the same.. -Chronic medical debility, patient is on empirically. At her baseline needs Nba lift. Fall precautions -Essential hypertension Coreg 12.5 mg by mouth twice a day amlodipine 5 mg a day -Chronic gout Allopurinol 100 mg a day -Hyperlipidemia Lipitor 40 mg daily at bedtime -Parkinson's disease Sinemet 25/100 one tablet daily at bedtime -Chronic kidney disease stage III likely from diabetic nephropathy and hypertensive nephrosclerosis Follow renal function. Nephrology consult -Chronic pain syndrome Given patient multifactorial problems. Change oxycodone to when necessary. Continue evaluated pain regularly. -Full code Change Lasix to by mouth.. 1 afternoon dose of IV Lasix ordered by nephrology. Repeat labs. Other medications to continue.
--- NOTE | 2022-01-02 13:38 | P.PN ---
Subjective Patient is a 76-year-old female who was transferred here from [place] with a known history of paroxysmal atrial fibrillation hypertension, sick sinus syndrome status post permanent pacemaker, peripheral vascular disease, chronic kidney disease stage III, dementia, Parkinson's, epilepsy, hyperlipidemia. Unclear who the patient's administration internship is outpatient. We have been asked to see the patient in consultation for congestive heart failure. Patient is a poor historian. She was brought to the emergency department for increasing shortness of breath and altered mental status. It was believed she overdosed on her pain medication due to her chronic kidney disease. She was started on IV Lasix on admission. Echocardiogram revealed an EF of 5560%, mild increased left ventricular wall thickness, mitral valve calcification and aortic sclerosis. Mild increased septum wall thickness. 01/02/2022 Patient seen and examined at bedside, no acute distress. Breathing well. No shortness of breath. Patient has been transitioned to PO Lasix and is tolerating well. Patient is also on Xarelto 15 mg daily, aspirin 80 mg daily, atorvastatin 40 mg nightly, carvedilol 12.5 mg twice a day. Patient with -1410mL output over the past 24 hours. Vitals signs are stable. Labs reviewed. Scr 3.26. VITALS: reviewed GENERAL: Well-appearing, well-nourished and in no acute distress. NECK: Supple without JVD or thyromegaly. LUNGS: Breath sounds clear to auscultation bilaterally. Respiration equal and unlabored. No wheezes, rales or rhonchi. HEART: Regular rate and rhythm without murmurs, rubs or gallops. S1 and S2 heard. EXTREMITIES: Normal range of motion, no edema. No clubbing or cyanosis. Peripheral pulses intact. ASSESSMENT Acute on chronic heart failure with preserved ejection fraction, improved Paroxysmal atrial fibrillation on Xarelto Chronic kidney disease stage III Sick sinus syndrome s/p pacemaker Peripheral vascular disease Dementia Parkinson's Hyperlipidemia Hypertension PLAN Recommend continuing PO Lasix Continue anticoagulation with Xarelto Continue home statin, aspirin, beta ramesh No further changes from a administration internship perspective. Recommend close follow up outpatient. Patient may follow up with Dr. Vitale in 1- 2 weeks. Patient is stable from a administration internship perspective. Please reach out with any further questions or concerns. Nurse Practitioner note has been reviewed, I agree with a documented findings and plan of care. Patient was seen and examined. Objective - Vital Signs Vital signs: Vital Signs Temp 98 F 01/02/22 09:35 Pulse 64 01/02/22 09:35 Resp 16 01/02/22 09:35 BP 101/60 01/02/22 09:35 Pulse Ox 98 01/02/22 09:35 Intake & Output 01/01/22 01/02/22 01/02/22 18:59 06:59 18:59 Intake Total 118 Output Total 750 660 300 Balance -750 -660 -182 Weight 82.5 kg Intake: Oral 118 Output: Urine 750 660 300 Uretheral (Akhtar) 500 660 300 Other: Voiding Method Indwelling Catheter Indwelling Catheter Indwelling Catheter # Bowel Movements 1 - Labs CBC & Chem 7: 01/02/22 07:14 Labs: Abnormal Lab Results - Last 24 Hours (Table) 01/01/22 01/01/22 01/02/22 Range/Units 16:20 20:18 07:14 BUN 49 H (7-17) mg/dL Creatinine 3.26 H (0.52-1.04) mg/dL POC Glucose (mg/dL) 137 H 127 H (75-99) mg/dL Calcium 7.5 L (8.4-10.2) mg/dL Magnesium 2.4 H (1.6-2.3) mg/dL 01/02/22 Range/Units 11:32 BUN (7-17) mg/dL Creatinine (0.52-1.04) mg/dL POC Glucose (mg/dL) 116 H (75-99) mg/dL Calcium (8.4-10.2) mg/dL Magnesium (1.6-2.3) mg/dL
[2022-01-02] MEDS ORDERED: FUROSEMIDE 10 MG/ML 4 ML VIAL IV ONE (15:00)
[2022-01-02 16:36] LABS: Glucose,Whole Blood 107 mg/dL (75-99)
[2022-01-02] MEDS: RIVAROXABAN 15 MG TAB PO SCH (16:39)
[2022-01-02] MEDS: [UNRECOGNIZED DRUG - OTHER] PO SCH ×2 (18:10→21:44)
[2022-01-02 20:18] LABS: Glucose,Whole Blood 116 mg/dL (75-99)
[2022-01-02] MEDS: INSULIN DETEMIR (LEVEMIR) 100 UNIT/ML SYR SQ SCH (21:45)
[2022-01-02] MEDS: ATORVASTATIN 40 MG TAB PO SCH (21:45)
[2022-01-02] MEDS: CARBIDOPA-LEVODOPA 25-100 MG 1 EACH TAB PO SCH (21:45)
[2022-01-02] MEDS: GABAPENTIN 300 MG CAP PO SCH (21:45)
[2022-01-02] MEDS: MELATONIN 5 MG TABLET PO SCH (21:45)
[2022-01-02] MEDS: CALCIUM CARB-VIT D 500 MG-5 MCG TAB PO SCH (21:45)
[2022-01-02] MEDS: ONDANSETRON 4 MG/2 ML VIAL IVP PRN (22:08)
[2022-01-03 05:45] LABS: Glucose,Whole Blood 97 mg/dL (75-99)
[2022-01-03] MEDS: INSULIN ASPART (NovoLOG) 100 UNIT/ML VIAL SQ SCH ×3 (05:51→17:17)
[2022-01-03] MEDS: FERROUS SULFATE 325 MG TAB PO SCH ×2 (06:18→17:16)
[2022-01-03] MEDS: ASPIRIN 81 MG PO SCH (06:18)
[2022-01-03] MEDS: carvediloL 12.5 MG TAB PO SCH ×2 (06:18→17:16)
[2022-01-03] MEDS: PANTOPRAZOLE 40 MG TABLET PO SCH ×2 (06:19→21:03)
[2022-01-03] MEDS: FUROSEMIDE 40 MG TAB PO SCH (09:11)
[2022-01-03] MEDS: LIDOCAINE 5% PATCH TOPICAL SCH (09:11)
[2022-01-03] MEDS: polyethylene glycoL 3350 17 GM POWD.PACK PO SCH (09:47)
[2022-01-03 10:12] LABS: Calcium 7.7 mg/dL (8.4-10.2); Magnesium 2.3 mg/dL (1.6-2.3); Potassium 4.4 mmol/L (3.5-5.1)
--- NOTE | 2022-01-03 10:41 | P.PN ---
Subjective Patient is seen in follow-up for acute kidney injury. Renal function slowly improving. On oral Lasix. Resting in bed. Currently on 2 L cannula. Has a Akhtar catheter. Nonoliguric. Denies chest pain or shortness of breath. Oral intake fair. No changes overnight. Edema improving. Vital signs are stable. General: Awake. No acute distress. HEENT: Head exam is unremarkable. LUNGS: Breath sounds decreased. HEART: Rate and Rhythm are regular. ABDOMEN: Soft, obese. EXTREMITITES: 2+ edema. Objective - Vital Signs Vital signs: Vital Signs Temp 97.9 F 01/03/22 09:10 Pulse 63 01/03/22 09:10 Resp 18 01/03/22 09:10 BP 130/67 01/03/22 09:10 Pulse Ox 99 01/03/22 09:10 Intake & Output 01/02/22 01/03/22 01/03/22 18:59 06:59 18:59 Intake Total 118 Output Total 500 1340 Balance -382 -1340 Weight 81 kg Intake: Oral 118 Output: Urine 500 1340 Uretheral (Akhtar) 640 Other: Voiding Method Indwelling Catheter Indwelling Catheter Indwelling Catheter # Bowel Movements 1 1 - Labs CBC & Chem 7: 01/03/22 09:35 Labs: Abnormal Lab Results - Last 24 Hours (Table) 01/02/22 01/02/22 01/02/22 Range/Units 11:32 16:22 20:17 Carbon Dioxide (22-30) mmol/L BUN (7-17) mg/dL Creatinine (0.52-1.04) mg/dL POC Glucose (mg/dL) 116 H 107 H 116 H (75-99) mg/dL Calcium (8.4-10.2) mg/dL 01/03/22 Range/Units 09:35 Carbon Dioxide 32 H (22-30) mmol/L BUN 44 H (7-17) mg/dL Creatinine 3.05 H (0.52-1.04) mg/dL POC Glucose (mg/dL) (75-99) mg/dL Calcium 7.7 L (8.4-10.2) mg/dL Assessment and Plan Plan: Assessment: 1. Acute kidney injury secondary to ATN secondary to cardiorenal syndrome. Unknown baseline renal function. Creatinine 3.05 on admission and peaked at 3.55 this admission - 3.05 today. Both kidneys noted to be atrophic. No evidence of hydronephrosis noted. UA shows trace protein. 2. Volume overload. Improving with diuresis. 3. Diabetes mellitus. 4. Chronic kidney disease. Unknown stage. Will need to establish baseline renal function. Etiology is diabetic kidney disease. 5. Benign hypertension. Stable. Cortisol level normal. 6. Acute on chronic diastolic CHF. Plan Maintain oral Lasix. Repeat additional Lasix 40 mg IV once this afternoon. Continue to monitor renal function and urine output. Encouraged oral intake.
[2022-01-03 11:25] LABS: Glucose,Whole Blood 98 mg/dL (75-99)
[2022-01-03] MEDS: [UNRECOGNIZED DRUG - OTHER] PO SCH ×2 (12:59→20:01)
[2022-01-03] MEDS: allopurinoL 100 MG TAB PO SCH (13:07)
[2022-01-03] MEDS ORDERED: FUROSEMIDE 10 MG/ML 4 ML VIAL IV ONE (15:00)
--- NOTE | 2022-01-03 16:20 | P.PN ---
Progress Note - Text Progress Note Date: 01/03/22 Chief Complaint: Short of breath This is a 76-year-old patient who follows with Dr. Farhad Flower. Seen by me in the ER. Resident of [facility]. Patient is a poor historian. Chronic stable medical conditions include depression, diabetes, peripheral neuropathy, dementia, hyp ertension, insomnia, hyperlipidemia, atrial fibrillation on xarelto, pacemaker for sick sinus syndrome, chronic kidney disease, gout, Parkinson's disease. Patient at baseline is known ambulatory. Patient is brought into [facility] this morning with a pulse ox down to 70%. Also been short of breath. Minimal cough. Since abdomen congestive heart failure. Sent down here. Started on IV Lasix. Patient herself is a limited historian. Daughter noticed to be short of breath. Admitted with acute congestive heart exacerbation. Started on IV Lasix. December 30: Laying in bed. A bit delirious. IV Lasix. Making urine. Rather sleepy. Oxycodone being changed to when necessary. DC Aricept and Lexapro given minimal benefit given her baseline state of dementia. Hopefully this should improve wakefulness. December 31: Eating somewhat better. On IV Lasix. Patient more awake after stopping Aricept Lexapro. Pain control. Not much urine output January 1: Eating about 25-50%. More awake. Spoke to the nurse. Answer questions. Breathing better.. Creatinine is climbing. Hold Lasix. January 2: Breathing better. Eating about 50%. By mouth Lasix. Follow with nephrology. January 3: Not eating some meals. Other 25%. Does answer simple questions. Did get 1 dose of IV Lasix per nephrology. Cardiology has signed off. I will ask the son and his siblings to come in tomorrow as they could not come in today for a meeting. Active Medications Acetaminophen (Acetaminophen Tab 325 Mg Tab) 650 mg PO Q4H PRN PRN Reason: Pain Last Admin: 12/31/21 12:02 Dose: 650 mg Documented by: Allopurinol (Allopurinol 100 Mg Tab) 100 mg PO DAILY@1200 [facility] Last Admin: 01/03/22 13:07 Dose: 100 mg Documented by: Aspirin (Aspirin 81 Mg) 81 mg PO DAILY@0700 [facility] Last Admin: 01/03/22 06:18 Dose: 81 mg Documented by: Atorvastatin Calcium (Atorvastatin 40 Mg Tab) 40 mg PO HS@2100 [facility] Last Admin: 01/02/22 21:45 Dose: 40 mg Documented by: Calcium Carbonate (Calcium Carb-Vit D 500 Mg-5 Mcg Tab) 1 each PO HS@2099 [facility] Last Admin: 01/02/22 21:45 Dose: 1 each Documented by: Calcium Carbonate/Glycine (Calcium Carbonate 500 Mg Chewable) 1,000 mg PO Q4HR PRN PRN Reason: Dyspepsia Carbidopa/Levodopa (Carbidopa-Levodopa 25-100 Mg 1 Each Tab) 1 each PO HS@1999 [facility] Last Admin: 01/02/22 21:45 Dose: 1 each Documented by: Carvedilol (Carvedilol 12.5 Mg Tab) 12.5 mg PO BID@0700,1700 [facility] Last Admin: 01/03/22 06:18 Dose: 12.5 mg Documented by: Ferrous Sulfate (Ferrous Sulfate 325 Mg Tab) 325 mg PO BID@0700,1700 [facility] Last Admin: 01/03/22 06:18 Dose: 325 mg Documented by: Furosemide (Furosemide 40 Mg Tab) 40 mg PO DAILY [facility] Last Admin: 01/03/22 09:11 Dose: 40 mg Documented by: Gabapentin (Gabapentin 300 Mg Cap) 300 mg PO HS@2099 [facility] Last Admin: 01/02/22 21:45 Dose: 300 mg Documented by: Insulin Aspart (Insulin Aspart (Novolog) 100 Unit/Ml Vial) 0 unit SQ AC-TID [facility]; Protocol Last Admin: 01/03/22 12:59 Dose: Not Given Documented by: Insulin Detemir (Insulin Detemir (Levemir) 100 Unit/Ml Syr) 15 unit SQ HS@2099 [facility] Last Admin: 01/02/22 21:45 Dose: 15 unit Documented by: Lactulose (Lactulose 20 Gm/30 Ml Cup) 20 gm PO DAILY PRN PRN Reason: Constipation Lidocaine (Lidocaine 5% Patch) 1 patch TOPICAL DAILY@1000 [facility] Last Admin: 01/03/22 09:11 Dose: 1 patch Documented by: Melatonin (Melatonin 5 Mg Tablet) 5 mg PO HS@2099 [facility] Last Admin: 01/02/22 21:45 Dose: 5 mg Documented by: Nitroglycerin (Nitroglycerin Sl Tabs 0.4 Mg Tab) 0.4 mg SUBLINGUAL Q5M PRN PRN Reason: Chest Pain Non-Formulary Medication (Med Plus) 120 ml PO BID@1200,1700 [facility] Last Admin: 01/03/22 12:59 Dose: Not Given Documented by: Ondansetron HCl (Ondansetron 4 Mg/2 Ml Vial) 4 mg IVP Q8HR PRN PRN Reason: Nausea And Vomiting Last Admin: 01/02/22 22:08 Dose: 4 mg Documented by: Oxycodone HCl (Oxycodone Hcl 5 Mg Tab) 5 mg PO QID PRN PRN Reason: Breakthrough Pain Last Admin: 12/31/21 16:39 Dose: 5 mg Documented by: Pantoprazole Sodium (Pantoprazole 40 Mg Tablet) 40 mg PO BID@0700,2100 [facility] Last Admin: 01/03/22 06:19 Dose: 40 mg Documented by: Polyethylene Glycol (Polyethylene Glycol 3350 17 Gm Powd.Pack) 17 gm PO DAILY@ 0800 [facility] Last Admin: 01/03/22 09:47 Dose: Not Given Documented by: Rivaroxaban (Rivaroxaban 15 Mg Tab) 15 mg PO DAILY@1700 [facility]; Protocol Last Admin: 01/02/22 16:39 Dose: 15 mg Documented by: Simethicone (Simethicone 80 Mg Chewable) 120 mg PO Q6H PRN PRN Reason: GAS Past medical history to include: Depression, diabetes, peripheral neuropathy, dementia, hypertension, insomnia, hyperlipidemia, atrial fibrillation, Parkinson's, 6 sinus syndrome with a pacemaker, gout, chronic kidney disease Social history: Patient lives at [facility]. Needs a Nba lift a wheelc hair. Incontinent. She can feed herself. No history of smoking alcohol known. Family history: Patient cannot tell Physical examination: VITAL SIGNS: 97.9, 58, 18, 105/46, 94% room air GENERAL: laying in bed, more awake EYES: Pupils equal. Conjunctiva normal. HEENT: External appearance of nose and ears normal, oral cavity grossly normal. NECK: JVD unable to assess; masses not palpable. HEART: Heart sounds irregular; some edema. LUNGS:[ Respiratory rate increased; decreased breath sounds. ABDOMEN: Soft, nontender, liver spleen not palpable, no masses palpable. PSYCH: Answering simple questions MUSCULOSKELETAL:No Clubbing/cyanosis;muscles-grossly intact. Evidence of OA. Bilateral foot drop NEUROLOGICAL: [Cranial nerves grossly intact; no facial asymmetry, no power of the lower extremity. INVESTIGATIONS, reviewed in the clinical context: January 03: Pressure 4.4 BUN 44 creatinine 3.05 January 02: Potassium 4.7. 49 creatinine 3.26 January 01: Sodium 138 BUN 49 creatinine 3.55 December 31: Sodium 136 potassium 5.3 creatinine 48 creatinine 3.22 December 30: Sodium 1:30 potassium 5.1 (creatinine 3.05 2-D echo: EF 55-60%. EKG tracing personally reviewed by me-normal sinus rhythm. Chest x-ray film personally reviewed by me-cardiac megaly. Venous prominence. Blunting of angles Investigations from [facility]: INR 1.5. Lipase 64. Troponin less than 0.012. Lactic acid 0.9. COVID 19: Not detected. Influenza A: Not detected Sodium 136 potassium 5.9 BUN 41 creatinine 3.1 LFTs normal. Assessment and plan: -Acute congestive heart failure. From diastolic dysfunction EF 55-60%.: Better. IV Lasix 40 mg every 12. Now on Lasix 40 mg by mouth daily -Acute delirium: Some improvement Multifactorial. DC Aricept. DC Lexapro. oxycodone - when necessary. -Depression Given patient's underlying dementia. Will DC Lexapro given risk-benefit balance. -Diabetes mellitus type 2, chronically on insulin DC Lantus. Patient barely eating.. Follow Accu-Cheks -Diabetic peripheral neuropathy Neurontin 300 mg daily at bedtime -Major cognitive impairment/dementia Aricept being discontinued given the risk balance benefit see how the patient does the same.. -Chronic medical debility, patient is on empirically. At her baseline needs Nba lift. Fall precautions -Essential hypertension Coreg 12.5 mg by mouth twice a day amlodipine 5 mg a day -Chronic gout Allopurinol 100 mg a day -Hyperlipidemia Lipitor 40 mg daily at bedtime -Parkinson's disease Sinemet 25/100 one tablet daily at bedtime -Chronic kidney disease stage III likely from diabetic nephropathy and hypertens nahid nephrosclerosis Follow renal function. Nephrology consult -Chronic pain syndrome Given patient multifactorial problems. Change oxycodone to when necessary. Continue evaluated pain regularly. -Full code Oral Lasix. IV Lasix when necessary... Patient barely eating. Encourage oral intake. Patient's son could not come in today. Will come in tomorrow. Prognosis guarded.
[2022-01-03 16:26] LABS: Glucose,Whole Blood 117 mg/dL (75-99)
[2022-01-03] MEDS: RIVAROXABAN 15 MG TAB PO SCH (17:16)
[2022-01-03 20:13] LABS: Glucose,Whole Blood 124 mg/dL (75-99)
[2022-01-03] MEDS: CARBIDOPA-LEVODOPA 25-100 MG 1 EACH TAB PO SCH (21:02)
[2022-01-03] MEDS: MELATONIN 5 MG TABLET PO SCH (21:02)
[2022-01-03] MEDS: CALCIUM CARB-VIT D 500 MG-5 MCG TAB PO SCH (21:02)
[2022-01-03] MEDS: ATORVASTATIN 40 MG TAB PO SCH (21:02)
[2022-01-03] MEDS: GABAPENTIN 300 MG CAP PO SCH (21:03)
[2022-01-04] MEDS: ASPIRIN 81 MG PO SCH (06:11)
[2022-01-04] MEDS: carvediloL 12.5 MG TAB PO SCH ×2 (06:11→17:07)
[2022-01-04] MEDS: PANTOPRAZOLE 40 MG TABLET PO SCH ×2 (06:11→21:11)
[2022-01-04] MEDS: FERROUS SULFATE 325 MG TAB PO SCH ×2 (06:11→17:07)
[2022-01-04 06:20] LABS: Glucose,Whole Blood 107 mg/dL (75-99)
[2022-01-04] MEDS: INSULIN ASPART (NovoLOG) 100 UNIT/ML VIAL SQ SCH ×3 (06:29→17:04)
[2022-01-04] MEDS: FUROSEMIDE 40 MG TAB PO SCH (08:53)
[2022-01-04] MEDS: polyethylene glycoL 3350 17 GM POWD.PACK PO SCH (08:53)
[2022-01-04 09:47] LABS: Basophils # (A) 0.1 k/uL (0-0.2); Basophils % (A) 1 %; Eosinophils # (A) 0.4 k/uL (0-0.7); Eosinophils % (A) 4 %; HCT 30.6 % (34.0-46.0); HGB 8.6 gm/dL (11.4-16.0); Hypochromasia Marked; Lymphocytes # (A) 2.7 k/uL (1.0-4.8); Lymphocytes % (A) 33 %; MCH 27.7 pg (25.0-35.0); MCHC 28.1 g/dL (31.0-37.0); MCV 98.6 fL (80.0-100.0); Macrocytosis Slight; Mean Platelet Volume 7.7; Monocytes # (A) 0.4 k/uL (0-1.0); Monocytes % (A) 5 %; Neutrophils # (A) 4.5 k/uL (1.3-7.7); Neutrophils % (A) 55 %; Platelet Count 260 k/uL (150-450); RDW 15.9 % (11.5-15.5); WBC 8.2 k/uL (3.8-10.6)
[2022-01-04] MEDS: LIDOCAINE 5% PATCH TOPICAL SCH (10:13)
[2022-01-04 10:15] LABS: Calcium 7.8 mg/dL (8.4-10.2); Potassium 4.3 mmol/L (3.5-5.1)
--- NOTE | 2022-01-04 11:32 | P.PN ---
Subjective Patient is seen in follow-up for acute kidney injury. Renal function slowly improving. On oral Lasix. Has been receiving a dose of IV Lasix as well as the last 2 days. Resting in bed. Currently on 2 L cannula. Has a Akhtar catheter. Nonoliguric. Denies chest pain or shortness of breath. Oral intake fair. No changes overnight. Edema improving. Vital signs are stable. General: Awake. No acute distress. HEENT: Head exam is unremarkable. LUNGS: Breath sounds decreased. HEART: Rate and Rhythm are regular. ABDOMEN: Soft, obese. EXTREMITITES: 1+ edema. Objective - Vital Signs Vital signs: Vital Signs Temp 98.7 F 01/04/22 08:00 Pulse 65 01/04/22 08:00 Resp 18 01/04/22 08:00 BP 127/66 01/04/22 08:00 Pulse Ox 98 01/04/22 08:00 Intake & Output 01/03/22 01/04/22 01/04/22 18:59 06:59 18:59 Intake Total 60 Output Total 1700 500 Balance 60 -1700 -500 Intake: Oral 60 Output: Urine 1700 500 Other: Voiding Method Indwelling Catheter Indwelling Catheter Indwelling Catheter # Bowel Movements 1 - Labs CBC & Chem 7: 01/04/22 09:11 01/04/22 09:11 Labs: Abnormal Lab Results - Last 24 Hours (Table) 01/03/22 01/03/22 01/04/22 Range/Units 16:23 20:11 06:08 RBC (3.80-5.40) m/uL Hgb (11.4-16.0) gm/dL Hct (34.0-46.0) % MCHC (31.0-37.0) g/dL RDW (11.5-15.5) % Carbon Dioxide (22-30) mmol/L BUN (7-17) mg/dL Creatinine (0.52-1.04) mg/dL POC Glucose (mg/dL) 117 H 124 H 107 H (75-99) mg/dL Calcium (8.4-10.2) mg/dL 01/04/22 01/04/22 Range/Units 09:11 09:11 RBC 3.10 L (3.80-5.40) m/uL Hgb 8.6 L (11.4-16.0) gm/dL Hct 30.6 L (34.0-46.0) % MCHC 28.1 L (31.0-37.0) g/dL RDW 15.9 H (11.5-15.5) % Carbon Dioxide 31 H (22-30) mmol/L BUN 41 H (7-17) mg/dL Creatinine 2.90 H (0.52-1.04) mg/dL POC Glucose (mg/dL) (75-99) mg/dL Calcium 7.8 L (8.4-10.2) mg/dL Assessment and Plan Plan: Assessment: 1. Acute kidney injury secondary to ATN secondary to cardiorenal syndrome. Unknown baseline renal function. Creatinine 3.05 on admission and peaked at 3.55 this admission - 2.90 today. Both kidneys noted to be atrophic. No evidence of hydronephrosis noted. UA shows trace protein. 2. Volume overload. Improving with diuresis. 3. Diabetes mellitus. 4. Chronic kidney disease. Unknown stage. Will need to establish baseline renal function. Etiology is diabetic kidney disease. 5. Benign hypertension. Stable. Cortisol level normal. 6. Acute on chronic diastolic CHF. Plan Change oral Lasix to IV Lasix 40 mg once daily. Continue to monitor renal function and urine output. Encouraged oral intake. Check iron studies. Avoid nephrotoxins.
[2022-01-04] MEDS: [UNRECOGNIZED DRUG - OTHER] PO SCH ×2 (11:39→17:07)
[2022-01-04 11:44] LABS: Glucose,Whole Blood 120 mg/dL (75-99)
[2022-01-04] MEDS: allopurinoL 100 MG TAB PO SCH (11:58)
[2022-01-04 16:37] LABS: Glucose,Whole Blood 128 mg/dL (75-99)
[2022-01-04] MEDS ORDERED: traMADol 50 MG TAB PO PRN (17:02)
--- NOTE | 2022-01-04 17:03 | P.PN ---
Progress Note - Text Progress Note Date: 01/04/22 Chief Complaint: Short of breath This is a 76-year-old patient who follows with Dr. Farhad Flower. Seen by me in the ER. Resident of [facility]. Patient is a poor historian. Chronic stable medical conditions include depression, diabetes, peripheral neuropathy, dementia, hyp ertension, insomnia, hyperlipidemia, atrial fibrillation on xarelto, pacemaker for sick sinus syndrome, chronic kidney disease, gout, Parkinson's disease. Patient at baseline is known ambulatory. Patient is brought into [facility] this morning with a pulse ox down to 70%. Also been short of breath. Minimal cough. Since abdomen congestive heart failure. Sent down here. Started on IV Lasix. Patient herself is a limited historian. Daughter noticed to be short of breath. Admitted with acute congestive heart exacerbation. Started on IV Lasix. December 30: Laying in bed. A bit delirious. IV Lasix. Making urine. Rather sleepy. Oxycodone being changed to when necessary. DC Aricept and Lexapro given minimal benefit given her baseline state of dementia. Hopefully this should improve wakefulness. December 31: Eating somewhat better. On IV Lasix. Patient more awake after stopping Aricept Lexapro. Pain control. Not much urine output January 1: Eating about 25-50%. More awake. Spoke to the nurse. Answer questions. Breathing better.. Creatinine is climbing. Hold Lasix. January 2: Breathing better. Eating about 50%. By mouth Lasix. Follow with nephrology. January 3: Not eating some meals. Other 25%. Does answer simple questions. Did get 1 dose of IV Lasix per nephrology. Cardiology has signed off. I will ask the son and his siblings to come in tomorrow as they could not come in today for a meeting. January 04: I personally when the patient had lunch. She ate close to 100%. Answering simple questions. Comfortable. Awake. Changed her to by mouth Lasix. Also for a family meeting with her 3 sons later today. Active Medications Acetaminophen (Acetaminophen Tab 325 Mg Tab) 650 mg PO Q4H PRN PRN Reason: Pain Last Admin: 12/31/21 12:02 Dose: 650 mg Documented by: Allopurinol (Allopurinol 100 Mg Tab) 100 mg PO DAILY@1200 [facility] Last Admin: 01/04/22 11:58 Dose: 100 mg Documented by: Aspirin (Aspirin 81 Mg) 81 mg PO DAILY@0700 [facility] Last Admin: 01/04/22 06:11 Dose: Not Given Documented by: Atorvastatin Calcium (Atorvastatin 40 Mg Tab) 40 mg PO HS@2100 [facility] Last Admin: 01/03/22 21:02 Dose: 40 mg Documented by: Calcium Carbonate (Calcium Carb-Vit D 500 Mg-5 Mcg Tab) 1 each PO HS@2100 [facility] Last Admin: 01/03/22 21:02 Dose: 1 each Documented by: Calcium Carbonate/Glycine (Calcium Carbonate 500 Mg Chewable) 1,000 mg PO Q4HR PRN PRN Reason: Dyspepsia Last Admin: 01/04/22 16:15 Dose: 1,000 mg Documented by: Carbidopa/Levodopa (Carbidopa-Levodopa 25-100 Mg 1 Each Tab) 1 each PO HS@1999 [facility] Last Admin: 01/03/22 21:02 Dose: 1 each Documented by: Carvedilol (Carvedilol 12.5 Mg Tab) 12.5 mg PO BID@0700,1700 [facility] Last Admin: 01/04/22 06:11 Dose: Not Given Documented by: Ferrous Sulfate (Ferrous Sulfate 325 Mg Tab) 325 mg PO BID@0700,1700 [facility] Last Admin: 01/04/22 06:11 Dose: Not Given Documented by: Furosemide (Furosemide 10 Mg/Ml 4 Ml Vial) 40 mg IV DAILY [facility] Gabapentin (Gabapentin 300 Mg Cap) 300 mg PO HS@2100 [facility] Last Admin: 01/03/22 21:03 Dose: 300 mg Documented by: Insulin Aspart (Insulin Aspart (Novolog) 100 Unit/Ml Vial) 0 unit SQ AC-TID [facility]; Protocol Last Admin: 01/04/22 11:40 Dose: Not Given Documented by: Lactulose (Lactulose 20 Gm/30 Ml Cup) 20 gm PO DAILY PRN PRN Reason: Constipation Lidocaine (Lidocaine 5% Patch) 1 patch TOPICAL DAILY@1000 [facility] Last Admin: 01/04/22 10:13 Dose: 1 patch Documented by: Melatonin (Melatonin 5 Mg Tablet) 5 mg PO HS@2100 [facility] Last Admin: 01/03/22 21:02 Dose: 5 mg Documented by: Nitroglycerin (Nitroglycerin Sl Tabs 0.4 Mg Tab) 0.4 mg SUBLINGUAL Q5M PRN PRN Reason: Chest Pain Non-Formulary Medication (Med Plus) 120 ml PO BID@1200,1700 [facility] Last Admin: 01/04/22 11:39 Dose: Not Given Documented by: Ondansetron HCl (Ondansetron 4 Mg/2 Ml Vial) 4 mg IVP Q8HR PRN PRN Reason: Nausea And Vomiting Last Admin: 01/02/22 22:08 Dose: 4 mg Documented by: Oxycodone HCl (Oxycodone Hcl 5 Mg Tab) 5 mg PO QID PRN PRN Reason: Breakthrough Pain Last Admin: 12/31/21 16:39 Dose: 5 mg Documented by: Pantoprazole Sodium (Pantoprazole 40 Mg Tablet) 40 mg PO BID@0700,2100 [facility] Last Admin: 01/04/22 06:11 Dose: Not Given Documented by: Polyethylene Glycol (Polyethylene Glycol 3350 17 Gm Powd.Pack) 17 gm PO DAILY@0800 [facility] Last Admin: 01/04/22 08:53 Dose: 17 gm Documented by: Rivaroxaban (Rivaroxaban 15 Mg Tab) 15 mg PO DAILY@1700 [facility]; Protocol Last Admin: 01/03/22 17:16 Dose: 15 mg Documented by: Simethicone (Simethicone 80 Mg Chewable) 120 mg PO Q6H PRN PRN Reason: GAS Past medical history to include: Depression, diabetes, peripheral neuropathy, dementia, hypertension, insomnia, hyperlipidemia, atrial fibrillation, Parkinson's, 6 sinus syndrome with a pacemaker, gout, chronic kidney disease Social history: Patient lives at [facility]. Needs a Nba lift a wheelchair. Incontinent. She can feed herself. No history of smoking alcohol known. Family history: Patient cannot tell Physical examination: VITAL SIGNS: 98.5, 77, 17, 125-74, 99% on 2 L GENERAL: laying in bed, awake, comfortable EYES: Pupils equal. Conjunctiva normal. HEENT: External appearance of nose and ears normal, oral cavity grossly normal. NECK: JVD unable to assess; masses not palpable. HEART: Heart sounds irregular; some edema. LUNGS:[ Respiratory rate increased; decreased breath sounds. ABDOMEN: Soft, nontender, liver spleen not palpable, no masses palpable. PSYCH: Answering simple questions MUSCULOSKELETAL:No Clubbing/cyanosis;muscles-grossly intact. Evidence of OA. Bilateral foot drop NEUROLOGICAL: [Cranial nerves grossly intact; no facial asymmetry, no power of the lower extremity. INVESTIGATIONS, reviewed in the clinical context: January 04: White count 8.2 hemoglobin 8.6 weight is 260 potassium 4.3 BUN 41 creatine 2.90 December 30: Sodium 1:30 potassium 5.1 (creatinine 3.05 2-D echo: EF 55-60%. EKG tracing personally reviewed by me-normal sinus rhythm. Chest x-ray film personally reviewed by me-cardiac megaly. Venous prominence. Blunting of angles Investigations from [facility]: INR 1.5. Lipase 64. Troponin less than 0.012. Lactic acid 0.9. COVID 19: Not detected. Influenza A: Not detected Sodium 136 potassium 5.9 BUN 41 creatinine 3.1 LFTs normal. Assessment and plan: -Acute congestive heart failure. From diastolic dysfunction EF 55-60%.: Ewa r. IV Lasix 40 mg every 12. Now on Lasix 40 mg by mouth daily -Acute delirium: Better Multifactorial. DC Aricept. DC Lexapro. oxycodone - when necessary. -Depression Given patient's underlying dementia. Will DC Lexapro given risk-benefit balance. -Diabetes mellitus type 2, chronically on insulin DC Lantus. Patient barely eating.. Follow Accu-Cheks -Diabetic peripheral neuropathy Neurontin 300 mg daily at bedtime -Major cognitive impairment/dementia Aricept being discontinued given the risk balance benefit see how the patient does the same.. -Chronic medical debility, patient is on empirically. At her baseline needs Nba lift. Fall precautions -Essential hypertension Coreg 12.5 mg by mouth twice a day amlodipine 5 mg a day -Chronic gout Allopurinol 100 mg a day -Hyperlipidemia Lipitor 40 mg daily at bedtime -Parkinson's disease Sinemet 25/100 one tablet daily at bedtime -Chronic kidney disease stage III likely from diabetic nephropathy and hypertensive nephrosclerosis Follow renal function. Nephrology consult -Chronic pain syndrome Given patient multifactorial problems. After discussion with family. DC oxycodone. Use Ultram 25 mg every 6 when necessary -Full code Keep on by mouth Lasix. Patient eating well with assistance. Other medications to continue. Discussed with casework manager. Plan for discharge to [facility] tomorrow. Change oxycodone to Ultram. Discussed with staff. Total time spent about 40 minutes with over 25 minutes of discussion. Advanced care planning: Met with patient's 3 sons in the room. Son Albin is the DP OA. But all 3 brothers a decision as to whether. Given patient's multiple comorbidities end-of-life care was discussed. Even though they don't want the patient to suffer at this point the patient is to continue to be on full code. I did explain that given patient's multiple comorbidities it may be suggested to have her DO NOT RESUSCITATE. At this point patient be continued to be full code. Several questions were answered. Pain medications was discussed. Will try patient on Ultram instead of oxycodone that'll be discontinued. Time spent for this 30 minutes
[2022-01-04] MEDS: RIVAROXABAN 15 MG TAB PO SCH (17:07)
[2022-01-04 19:09] LABS: % Iron Saturation 6.66 (12.00-45.00); Ferritin 60.6 ng/mL (10.0-291.0)
[2022-01-04 20:51] LABS: Glucose,Whole Blood 131 mg/dL (75-99)
[2022-01-04] MEDS: CALCIUM CARB-VIT D 500 MG-5 MCG TAB PO SCH (21:11)
[2022-01-04] MEDS: CARBIDOPA-LEVODOPA 25-100 MG 1 EACH TAB PO SCH (21:11)
[2022-01-04] MEDS: ATORVASTATIN 40 MG TAB PO SCH (21:11)
[2022-01-04] MEDS: MELATONIN 5 MG TABLET PO SCH (21:11)
[2022-01-04] MEDS: GABAPENTIN 300 MG CAP PO SCH (21:11)
[2022-01-05 06:24] LABS: Glucose,Whole Blood 117 mg/dL (75-99)
[2022-01-05] MEDS: FERROUS SULFATE 325 MG TAB PO SCH (06:27)
[2022-01-05] MEDS: carvediloL 12.5 MG TAB PO SCH (06:27)
[2022-01-05] MEDS: ASPIRIN 81 MG PO SCH (06:27)
[2022-01-05] MEDS: PANTOPRAZOLE 40 MG TABLET PO SCH (06:27)
[2022-01-05] MEDS: INSULIN ASPART (NovoLOG) 100 UNIT/ML VIAL SQ SCH ×2 (06:27→12:16)
[2022-01-05] MEDS ORDERED: FUROSEMIDE 10 MG/ML 4 ML VIAL IV SCH (09:00)
--- NOTE | 2022-01-05 09:27 | P.PN ---
Subjective Patient is seen in follow-up for acute kidney injury. Renal function slowly improving. Being diuresed. Nonoliguric. Resting in bed. Currently on 2 L cannula. Has a Akhtar catheter. Denies chest pain or shortness of breath. Oral intake fair. No changes overnight. Edema improving. Vital signs are stable. General: Awake. No acute distress. HEENT: Head exam is unremarkable. LUNGS: Breath sounds decreased. HEART: Rate and Rhythm are regular. ABDOMEN: Soft, obese. EXTREMITITES: 1+ edema. Objective - Vital Signs Vital signs: Vital Signs Temp 97.8 F 01/05/22 08:00 Pulse 76 01/05/22 08:00 Resp 18 01/05/22 08:00 BP 141/63 01/05/22 08:00 Pulse Ox 97 01/05/22 08:00 Intake & Output 01/04/22 01/05/22 01/05/22 18:59 06:59 18:59 Intake Total 240 Output Total 1000 850 Balance -760 -850 Intake: Oral 240 Output: Urine 1000 850 Other: Voiding Method Indwelling Catheter Indwelling Catheter # Bowel Movements 1 1 - Labs CBC & Chem 7: 01/04/22 09:11 01/04/22 09:11 Labs: Abnormal Lab Results - Last 24 Hours (Table) 01/04/22 01/04/22 01/04/22 Range/Units 09:11 09:11 09:11 RBC 3.10 L (3.80-5.40) m/uL Hgb 8.6 L (11.4-16.0) gm/dL Hct 30.6 L (34.0-46.0) % MCHC 28.1 L (31.0-37.0) g/dL RDW 15.9 H (11.5-15.5) % Carbon Dioxide 31 H (22-30) mmol/L BUN 41 H (7-17) mg/dL Creatinine 2.90 H (0.52-1.04) mg/dL POC Glucose (mg/dL) (75-99) mg/dL Calcium 7.8 L (8.4-10.2) mg/dL Iron 17 L (50-170) ug/dL % Saturation 6.66 L (12.00-45.00) Transferrin 179.0 L (204.0-354.0) mg/dL 01/04/22 01/04/22 01/04/22 Range/Units 11:40 16:36 20:45 RBC (3.80-5.40) m/uL Hgb (11.4-16.0) gm/dL Hct (34.0-46.0) % MCHC (31.0-37.0) g/dL RDW (11.5-15.5) % Carbon Dioxide (22-30) mmol/L BUN (7-17) mg/dL Creatinine (0.52-1.04) mg/dL POC Glucose (mg/dL) 120 H 128 H 131 H (75-99) mg/dL Calcium (8.4-10.2) mg/dL Iron (50-170) ug/dL % Saturation (12.00-45.00) Transferrin (204.0-354.0) mg/dL 01/05/22 Range/Units 06:23 RBC (3.80-5.40) m/uL Hgb (11.4-16.0) gm/dL Hct (34.0-46.0) % MCHC (31.0-37.0) g/dL RDW (11.5-15.5) % Carbon Dioxide (22-30) mmol/L BUN (7-17) mg/dL Creatinine (0.52-1.04) mg/dL POC Glucose (mg/dL) 117 H (75-99) mg/dL Calcium (8.4-10.2) mg/dL Iron (50-170) ug/dL % Saturation (12.00-45.00) Transferrin (204.0-354.0) mg/dL Assessment and Plan Plan: Assessment: 1. Acute kidney injury secondary to ATN secondary to cardiorenal syndrome. Unknown baseline renal function. Creatinine 3.05 on admission and peaked at 3.55 this admission - 2.90 yesterday. Both kidneys noted to be atrophic. No evidence of hydronephrosis noted. UA shows trace protein. 2. Volume overload. Improving with diuresis. 3. Diabetes mellitus. 4. Chronic kidney disease. Unknown stage. Will need to establish baseline renal function. Etiology is diabetic kidney disease. 5. Benign hypertension. Stable. Cortisol level normal. 6. Acute on chronic diastolic CHF. 7. Anemia. Iron deficiency noted. Plan Maintain IV Lasix daily. Continue to monitor renal function and urine output. Encouraged oral intake. Add IV iron. Avoid nephrotoxins.
[2022-01-05] MEDS: polyethylene glycoL 3350 17 GM POWD.PACK PO SCH (10:14)
[2022-01-05 10:18] LABS: Calcium 7.7 mg/dL (8.4-10.2); Magnesium 1.8 mg/dL (1.6-2.3)
[2022-01-05] MEDS: LIDOCAINE 5% PATCH TOPICAL SCH (10:18)
[2022-01-05] MEDS ORDERED: SODIUM FERRIC GLUCONAT-SUCROSE 125 MG in SODIUM CHLORIDE 0.9% 100 ML IVPB SCH (10:30)
--- NOTE | 2022-01-05 11:24 | P.DS ---
Providers Date of admission: 12/29/21 14:20 Expected date of discharge: 01/05/22 Attending physician: Jeff Schumacher Consults: 12/29/21 14:20 Consult Physician Routine Consulting Provider: Aleksandra Flores Consult Reason/Comments: Acute kidney injury Do you want consulting provider notified?: Yes 12/29/21 17:07 Consult Physician Routine Consulting Provider: Shad Vitale Consult Reason/Comments: CHF Do you want consulting provider notified?: Yes Primary care physician: Farhad Flower [facility] Course: Chief Complaint: Short of breath This is a 76-year-old patient who follows with Dr. Farhad Flower. Seen by me in the ER. Resident of [facility]. Patient is a poor historian. Chronic stable medical conditions include depression, diabetes, peripheral neuropathy, dementia, hypertension, insomnia, hyperlipidemia, atrial fibrillation on xarelto, pacemaker for sick sinus syndrome, chronic kidney disease, gout, Parkinson's disease. Patient at baseline is known ambulatory. Patient is brought into [facility] this morning with a pulse ox down to 70%. Also been short of breath. Minimal cough. Since abdomen congestive heart failure. Sent down here. Started on IV Lasix. Patient herself is a limited historian. Daughter noticed to be short of breath. Admitted with acute congestive heart exacerbation. Started on IV Lasix. December 30: Laying in bed. A bit delirious. IV Lasix. Making urine. Rather sleepy. Oxycodone being changed to when necessary. DC Aricept and Lexapro given minimal benefit given her baseline state of dementia. Hopefully this should improve wakefulness. December 31: Eating somewhat better. On IV Lasix. Patient more awake after stopping Aricept Lexapro. Pain control. Not much urine output January 1: Eating about 25-50%. More awake. Spoke to the nurse. Answer questions. Breathing better.. Creatinine is climbing. Hold Lasix. January 2: Breathing better. Eating about 50%. By mouth Lasix. Follow with nephrology. January 3: Not eating some meals. Other 25%. Does answer simple questions. Did get 1 dose of IV Lasix per nephrology. Cardiology has signed off. I will ask the son and his siblings to come in tomorrow as they could not come in today for a meeting. January 4: I personally when the patient had lunch. She ate close to 100%. Answering simple questions. Comfortable. Awake. Changed her to by mouth Lasix. Also for a family meeting with her 3 sons later today. January 04: Met with patient's family yesterday. Overall multiple issues discussed. Patient remains on full code. Patient oxycodone discontinued. Ultram when necessary. Voltaren gel for knees. Changed to by mouth Lasix 80 mg daily. Patient follow-up with cardiology nephrology as outpatient. Past medical history to include: Depression, diabetes, peripheral neuropathy, dementia, hypertension, insomnia, hyperlipidemia, atrial fibrillation, Parkinson's, 6 sinus syndrome with a pacemaker, gout, chronic kidney disease Social history: Patient lives at [facility]. Needs a Nba lift a wheelchair. Incontinent. She can feed herself. No history of smoking alcohol known. Family history: Patient cannot tell Physical examination: VITAL SIGNS: 98.5, 77, 17, 125/74, 99% on 2 L GENERAL: laying in bed, awake, comfortable EYES: Pupils equal. Conjunctiva normal. HEENT: External appearance of nose and ears normal, oral cavity grossly normal. NECK: JVD unable to assess; masses not palpable. HEART: Heart sounds irregular; some edema. LUNGS:[ Respiratory rate increased; decreased breath sounds. ABDOMEN: Soft, nontender, liver spleen not palpable, no masses palpable. PSYCH: Answering simple questions MUSCULOSKELETAL:No Clubbing/cyanosis;muscles-grossly intact. Evidence of OA. Bilateral foot drop NEUROLOGICAL: [Cranial nerves grossly intact; no facial asymmetry, no power of the lower extremity. INVESTIGATIONS, reviewed in the clinical context: January 05: Potassium 4 BUN 37 creatinine 2.65 December 30: Sodium 1:30 potassium 5.1 (creatinine 3.05 2-D echo: EF 55-60%. EKG tracing personally reviewed by me-normal sinus rhythm. Chest x-ray film personally reviewed by ga-cardiac idania. Venous prominence. Blunting of angles Investigations from [facility]: INR 1.5. Lipase 64. Troponin less than 0.012. Lactic acid 0.9. COVID 19: Not detected. Influenza A: Not detected Sodium 136 potassium 5.9 BUN 41 creatinine 3.1 LFTs normal. Assessment and plan: -Acute congestive heart failure. From diastolic dysfunction EF 55-60%.: Better. IV Lasix 40 mg every 12. Now on Lasix 80 mg by mouth daily -Acute delirium: Better Multifactorial. DC Aricept. DC Lexapro. oxycodone - when necessary. -Depression Given patient's underlying dementia. Will DC Lexapro given risk-benefit balance. -Diabetes mellitus type 2, chronically on insulin DC Lantus. Follow Accu-Cheks -Diabetic peripheral neuropathy Neurontin 300 mg daily at bedtime -Major cognitive impairment/dementia Aricept being discontinued given the risk balance benefit see how the patient does the same.. -Chronic medical debility, patient is on empirically. At her baseline needs Nba lift. Fall precautions -Essential hypertension Coreg 12.5 mg by mouth twice a day amlodipine 5 mg a day -Chronic gout Allopurinol 100 mg a day -Hyperlipidemia Lipitor 40 mg daily at bedtime -Parkinson's disease Sinemet 25/100 one tablet daily at bedtime -Chronic kidney disease stage III likely from diabetic nephropathy and hypertensive nephrosclerosis Follow renal function. Nephrology consult -Chronic pain syndrome Given patient multifactorial problems. After discussion with family. DC oxycodone. Use Ultram 50 mg every 6 when necessary -Full code Disposition: [facility] Plan - Discharge Summary Discharge Rx Participant: No New Discharge Prescriptions: New Lactulose [Cephulac] 20 gm PO DAILY PRN ml PRN Reason: Constipation Diclofenac Sodium Gel [Voltaren Gel] 4 gm TOPICAL TID #100 gm Furosemide [Lasix] 80 mg PO DAILY #1 tablet traMADol HCl [Ultram] 50 mg PO QID PRN #12 tab PRN Reason: Pain Continue Nitroglycerin Sl Tabs [Nitrostat] 0.4 mg SUBLINGUAL Q5M PRN PRN Reason: Chest Pain INSULIN LISPRO (HumaLOG) [humaLOG] See Protocol SQ AC-TID Magnesium Oxide [Mag-Ox] 400 mg PO BID@1200,2100 Ferrous Sulfate [Iron (65 MG Elemental)] 325 mg PO BID@0700,1700 Polyethylene Glycol 3350 [Miralax] 17 gm PO DAILY@0800 Carbidopa-Levodopa 25-100 mg [Sinemet 25-100 mg] 1 tab PO HS@2000 Calcium Carbonate/Vitamin D3 [Calcium 600 mg-D3 10 Mcg (400 Iu)] 1 cap PO HS@2100 Aspirin EC [Ecotrin Low Dose] 81 mg PO DAILY@0700 Simethicone [Gas-X] 125 mg PO Q6H PRN PRN Reason: GAS Gabapentin [Neurontin] 300 mg PO HS@2100 #3 cap Acetaminophen Tab [Tylenol] 650 mg PO Q4H PRN PRN Reason: Pain Omeprazole 20 mg PO BID@0700,2100 Carvedilol [Coreg] 12.5 mg PO BID@0700,1700 Rivaroxaban [Xarelto] 15 mg PO DAILY@1700 Melatonin 5 mg PO HS@2100 Atorvastatin [Lipitor] 40 mg PO HS@2100 Allopurinol [Zyloprim] 100 mg PO DAILY@1200 Med Plus 120 ml PO BID@1200,1700 Lidocaine 4% Patch 1 patch TOPICAL DAILY@1000 #3 Discontinued amLODIPine [Norvasc] 5 mg PO DAILY@0700 Donepezil [Aricept] 10 mg PO HS@2100 oxyCODONE HCL 5 mg PO QID Insulin Glargine,Hum.rec.anlog [Lantus Solostar Pen] 15 unit SQ HS@2099 Escitalopram [Lexapro] 5 mg PO DAILY@0700 Fluticasone Nasal Austin [Flonase Nasal Austin] 1 spray EA NOSTRIL DAILY@0700 Docusate [Colace] 100 mg PO HS@2100 Discharge Medication List Acetaminophen Tab [Tylenol] 650 mg PO Q4H PRN 12/29/21 [History] Allopurinol [Zyloprim] 100 mg PO DAILY@1200 12/29/21 [History] Aspirin EC [Ecotrin Low Dose] 81 mg PO DAILY@0700 12/29/21 [History] Atorvastatin [Lipitor] 40 mg PO HS@209912/29/21 [History] Calcium Carbonate/Vitamin D3 [Calcium 600 mg-D3 10 Mcg (400 Iu)] 1 cap PO HS@209912/29/21 [History] Carbidopa-Levodopa 25-100 mg [Sinemet 25-100 mg] 1 tab PO HS@199912/29/21 [History] Carvedilol [Coreg] 12.5 mg PO BID@0700,1700 12/29/21 [History] Ferrous Sulfate [Iron (65 MG Elemental)] 325 mg PO BID@0700,1700 12/29/21 [History] INSULIN LISPRO (HumaLOG) [humaLOG] See Protocol SQ AC-TID 12/29/21 [History] Magnesium Oxide [Mag-Ox] 400 mg PO BID@1200,2100 12/29/21 [History] Med Plus 120 ml PO BID@1200,1700 12/29/21 [History] Melatonin 5 mg PO HS@209912/29/21 [History] Nitroglycerin Sl Tabs [Nitrostat] 0.4 mg SUBLINGUAL Q5M PRN 12/29/21 [History] Omeprazole 20 mg PO BID@0700,2100 12/29/21 [History] Polyethylene Glycol 3350 [Miralax] 17 gm PO DAILY@0800 12/29/21 [History] Rivaroxaban [Xarelto] 15 mg PO DAILY@1700 12/29/21 [History] Simethicone [Gas-X] 125 mg PO Q6H PRN 12/29/21 [History] Diclofenac Sodium Gel [Voltaren Gel] 4 gm TOPICAL TID #100 gm 01/05/22 [Rx] Furosemide [Lasix] 80 mg PO DAILY #1 tablet 01/05/22 [Rx] Gabapentin [Neurontin] 300 mg PO HS@2100 #3 cap 01/05/22 [Rx] Lactulose [Cephulac] 20 gm PO DAILY PRN ml 01/05/22 [Rx] Lidocaine 4% Patch 1 patch TOPICAL DAILY@1000 #3 01/05/22 [Rx] traMADol HCl [Ultram] 50 mg PO QID PRN #12 tab 01/05/22 [Rx] Follow up Appointment(s)/Referral(s): Farhad Flower MD [Primary Care Provider] - 1-2 days Jay Jay Hahn DO [STAFF PHYSICIAN] - 2 Weeks Shad Vitale MD [STAFF PHYSICIAN] - 2 Weeks
[2022-01-05] MEDS: [UNRECOGNIZED DRUG - OTHER] PO SCH (11:36)
[2022-01-05 12:05] LABS: Glucose,Whole Blood 146 mg/dL (75-99)
[2022-01-05] MEDS: allopurinoL 100 MG TAB PO SCH (12:16)
[2022-01-05 16:01] VITALS: RESP 17
[2022-01-05 16:05] VITALS: BP 158/84; PULSE 79; TEMP 97.5
== END 2022-01-05 16:30 | DRG 291 ==
LOC: EC 13:15 → 3SCARD 14:20
PROVIDERS: ADMIT Hospitalist; ATTEND Hospitalist
DX: I13.0 Hypertensive heart and chronic kidney disease with heart failure and stage 1 through stage 4 chronic kidney disease, or unspecified chronic kidney disease (principal); I50.33 Acute on chronic diastolic (congestive) heart failure; N17.0 Acute kidney failure with tubular necrosis; I48.0 Paroxysmal atrial fibrillation; E11.22 Type 2 diabetes mellitus with diabetic chronic kidney disease; N18.30 Chronic kidney disease, stage 3 unspecified; D50.9 Iron deficiency anemia, unspecified; E11.42 Type 2 diabetes mellitus with diabetic polyneuropathy; E11.51 Type 2 diabetes mellitus with diabetic peripheral angiopathy without gangrene; G40.909 Epilepsy, unspecified, not intractable, without status epilepticus; F02.80 Dementia in other diseases classified elsewhere, unspecified severity, without behavioral disturbance, psychotic disturbance, mood disturbance, and anxiety; F32.A Depression, unspecified; G20 Parkinson's disease; G47.00 Insomnia, unspecified; G89.4 Chronic pain syndrome; I42.9 Cardiomyopathy, unspecified; Z60.2 Problems related to living alone; T40.601A Poisoning by unspecified narcotics, accidental (unintentional), initial encounter; M1A.9XX0 Chronic gout, unspecified, without tophus (tophi); E78.5 Hyperlipidemia, unspecified; I49.5 Sick sinus syndrome; E66.9 Obesity, unspecified; Z88.6 Allergy status to analgesic agent; Z88.5 Allergy status to narcotic agent; Z68.29 Body mass index [BMI] 29.0-29.9, adult; Z95.0 Presence of cardiac pacemaker; Z79.01 Long term (current) use of anticoagulants; Z79.4 Long term (current) use of insulin; Z79.82 Long term (current) use of aspirin; Z79.899 Other long term (current) drug therapy
CPT/HCPCS: 71045; 76770; 80048; 80053; 81001; 82533; 82728; 83540; 83550; 83735; 85025; 93306; 96374; 96375; 99285

== ENCOUNTER 2023-01-19 05:11 | Inpatient (IN) | payer MEDICARE, OTHER ==
--- NOTE | 2023-01-19 05:53 | ED ---
Fever HPI - General Chief Complaint: Fever Stated Complaint: Sepsis Time Seen by Provider: 01/19/23 05:19 Source: EMS Mode of arrival: EMS Limitations: language barrier - History of Present Illness Initial Comments: 77-year-old female with past history of A. fib, diabetes, dementia who resides at an F who presents to the emergency department from [facility]. Review of outside hospital paperwork demonstrated the patient's came to their facility because of altered mental status around 5:30 pm. She had hypertension, fever and emesis. Paperwork demonstrates an EKG with sinus tachycardia with a rate of 102. White count is 17. Creatinine 2.7 troponin 0.037. Mag of 1.8. Pro-Memo of 2.6. Urine shows rare bacteria. Viral panel is negative. CT head demonstrates no intracranial hemorrhage. CT chest and abdomen also performed but without contrast which demonstrates no acute findings. Patient was requiring oxygen as she had an original O2 sat of 89%. Obtain blood cultures and treating for pneumonia. Requested transfer to our facility for higher level of care. Upon my evaluation the patient she cannot provide much history as Engl ally is not her first language. She is wearing oxygen and resting comfortably 100%. She denies chest pain - Related Data Home Medications Medication Instructions Recorded Confirmed Acetaminophen Tab [Tylenol] 650 mg PO Q4H PRN 12/29/21 12/29/21 Aspirin EC [Ecotrin Low Dose] 81 mg PO DAILY@0700 12/29/21 12/29/21 Atorvastatin [Lipitor] 40 mg PO HS@209912/29/21 12/29/21 Calcium Carbonate/Vitamin D3 1 cap PO HS@209912/29/21 12/29/21 [Calcium 600 mg-D3 10 Mcg (400 Iu)] Carbidopa-Levodopa 25-100 mg 1 tab PO HS@199912/29/21 12/29/21 [Sinemet 25-100 mg] Ferrous Sulfate [Iron (65 MG 325 mg PO BID@0700,169912/29/21 12/29/21 Elemental)] INSULIN LISPRO (HumaLOG) [humaLOG] See Protocol SQ AC-TID 12/29/21 12/29/21 Magnesium Oxide [Mag-Ox] 400 mg PO BID@1200,209912/29/21 12/29/21 Med Plus 120 ml PO BID@1200,17012/29/21 12/29/21 Melatonin 5 mg PO HS@2100 12/29/21 12/29/21 Nitroglycerin Sl Tabs [Nitrostat] 0.4 mg SUBLINGUAL Q5M PRN 12/29/21 12/29/21 Omeprazole 20 mg PO BID@0700,2100 12/29/21 12/29/21 Rivaroxaban [Xarelto] 15 mg PO DAILY@1700 12/29/21 12/29/21 Simethicone [Gas-X] 125 mg PO Q6H PRN 12/29/21 12/29/21 allopurinoL [Zyloprim] 100 mg PO DAILY@1200 12/29/21 12/29/21 carvediloL [Coreg] 12.5 mg PO BID@0700,1700 12/29/21 12/29/21 polyethylene glycoL 3350 [Miralax] 17 gm PO DAILY@0800 12/29/21 12/29/21 Previous Rx's Medication Instructions Recorded Diclofenac Sodium Gel [Voltaren 4 gm TOPICAL TID #100 gm 01/05/22 Gel] Furosemide [Lasix] 80 mg PO DAILY #1 tablet 01/05/22 Gabapentin [Neurontin] 300 mg PO HS@2100 #3 cap 01/05/22 Lactulose [Cephulac] 20 gm PO DAILY PRN ml 01/05/22 Lidocaine 4% Patch 1 patch TOPICAL DAILY@1000 #3 01/05/22 traMADol HCl [Ultram] 50 mg PO QID PRN #12 tab 01/05/22 Allergies Allergy/AdvReac Type Severity Reaction Status Date / Time codeine Allergy Unknown Verified 01/19/23 07:26 hydromorphone [From Dilaudid] Allergy Unknown Verified 01/19/23 07:26 acetaminophen AdvReac see comment Verified 01/19/23 07:26 Review of Systems ROS Statement: Those systems with pertinent positive or pertinent negative responses have been documented in the HPI. ROS Other: All systems not noted in ROS Statement are negative. Past Medical History Past Medical History: Atrial Fibrillation, Chest Pain / Angina, Dementia, Diabetes Mellitus, GERD/Reflux, Hyperlipidemia, Hypertension, Musculoskeletal Disorder, Neurologic Disorder, Pneumonia, Renal Disease, Seizure Disorder, Vascular Disorder Additional Past Medical History / Comment(s): IDDM type II, paroxysmal atrial fibrilation, parkinsons, epilepsy, muscle weakness, anemia, hyperkalemia, sick sinus syndrome with pacemaker, PVD, CKD stage 3, gastritis, dysphagia, gout History of Any Multi-Drug Resistant Organisms: None Reported Past Surgical History: Pacemaker Past Anesthesia/Blood Transfusion Reactions: No Reported Reaction Type of Cardiac Device: Permanent Pacemaker Device Placement Date:: unknown Past Psychological History: Depression Smoking Status: Unknown if ever smoked - Past Family History Father Family Medical History: Unable to Obtain Mother Family Medical History: Unable to Obtain General Exam Limitations: language barrier Course Vital Signs 01/19/23 05:16 Temperature 99.8 F H Pulse Rate 96 Respiratory 22 Rate Blood Pressure 152/109 O2 Sat by Pulse 99 Oximetry Medical Decision Making - Medical Decision Making Was pt. sent in by a medical professional or institution (, PA, LICENSED LOAN OFFICER, urgent care, hospital, or senior living...) When possible be specific @ -[No] Did you speak to anyone other than the patient for history (EMS, parent, family, police, friend...)? What history was obtained from this source @ -[No] Did you review nursing and triage notes (agree or disagree)? Why? @ -[I reviewed and agree with nursing and triage notes] Were old charts reviewed (outside hosp., previous admission, EMS record, old EKG, old radiological studies, urgent care reports/EKG's, senior living records)? Report findings @ -[No old charts were reviewed] Differential Diagnosis (chest pain, altered mental status, abdominal pain women, abdominal pain men, vaginal bleeding, weakness, fever, dyspnea, syncope, headache, dizziness, GI bleed, back pain, seizure, CVA, palpatations, mental health, musculoskeletal)? @ -[not applicable] EKG interpreted by me (3pts min.). @ -[As above] X-rays interpreted by me (1pt min.). @ -[None done] CT interpreted by me (1pt min.). @ -[None done] U/S interpreted by me (1pt. min.). @ -[None done] What testing was considered but not performed or refused? (CT, X-rays, U/S, lab s)? Why? @ -[None] What meds were considered but not given or refused? Why? @ -[None] Did you discuss the management of the patient with other professionals (professionals i.e. , PA, LICENSED LOAN OFFICER, lab, RT, psych nurse, manager social responsibility, application dba, teacher, chief risk officer, test case developer)? Give summary @ -[No] Was smoking cessation discussed for >3mins.? @ -[No] Was critical care preformed (if so, how long)? @ -[No] Were there social determinants of health that impacted care today? How? (Homelessness, low income, unemployed, alcoholism, drug addiction, transportation, low edu. Level, literacy, decrease access to med. care, [facility], rehab)? @ -[No] Was there de-escalation of care discussed even if they declined (Discuss DNR or withdrawal of care, Hospice)? DNR status @ -[No] What co-morbidities impacted this encounter? (DM, HTN, Smoking, COPD, CAD, Cancer, CVA, ARF, Chemo, Hep., AIDS, mental health diagnosis, sleep apnea, morbid obesity)? @ -[None] Was patient admitted / discharged? Hospital course, mention meds given and route, prescriptions, significant lab abnormalities, going to OR and other per tinent info. @ -Upon arrival patient is placed into room 12. I did review her outside record. Patient did receive Zosyn. I repeated laboratory studies which demonstrated a white blood cell count of 29.7. Creatinine 2.7. Spoke with Dr. Schumacher who will admit the patient Undiagnosed new problem with uncertain prognosis? @ -[No] Drug Therapy requiring intensive monitoring for toxicity (Heparin, Nitro, Insulin, Cardizem)? @ -[No] Were any procedures done? @ -[No] Diagnosis/symptom? @ -[default] Acute, or Chronic, or Acute on Chronic? @ -[default] Uncomplicated (without systemic symptoms) or Complicated (systemic symptoms)? @ -[default] Side effects of treatment? @ -[No] Exacerbation, Progression, or Severe Exacerbation? @ -[No] Poses a threat to life or bodily function? How? (Chest pain, [place], [place], pneumonia, PE, COPD, DKA, ARF, appy, cholecystitis, CVA, Diverticulitis, Homicidal, Suicidal, threat to staff... and all critical care pts) @ -[No] - Lab Data Result diagrams: 01/19/23 05:40 01/19/23 05:40 Lab Results 01/19/23 01/19/23 Range/Units 05:40 05:40 WBC 29.7 H (3.8-10.6) k/uL RBC 3.51 L (3.80-5.40) m/uL Hgb 11.0 L (11.4-16.0) gm/dL Hct 34.1 (34.0-46.0) % MCV 97.4 (80.0-100.0) fL MCH 31.4 (25.0-35.0) pg MCHC 32.2 (31.0-37.0) g/dL RDW 16.5 H (11.5-15.5) % Plt Count 199 (150-450) k/uL MPV 8.4 Neutrophils % 95 % Lymphocytes % 3 % Monocytes % 2 % Eosinophils % 0 % Basophils % 0 % Neutrophils # 28.1 H (1.3-7.7) k/uL Lymphocytes # 0.8 L (1.0-4.8) k/uL Monocytes # 0.5 (0-1.0) k/uL Eosinophils # 0.1 (0-0.7) k/uL Basophils # 0.1 (0-0.2) k/uL Hypochromasia Slight Anisocytosis Slight Macrocytosis Slight Sodium 139 (137-145) mmol/L Potassium 4.5 (3.5-5.1) mmol/L Chloride 105 (98-107) mmol/L Carbon Dioxide 25 (22-30) mmol/L Anion Gap 9 mmol/L BUN 56 H (7-17) mg/dL Creatinine 2.71 H (0.52-1.04) mg/dL Est GFR (CKD-EPI)AfAm 19 (>60 ml/min/1.73 sqM) Est GFR (CKD-EPI)NonAf 16 (>60 ml/min/1.73 sqM) Glucose 229 H (74-99) mg/dL Calcium 8.6 (8.4-10.2) mg/dL Total Bilirubin 1.1 (0.2-1.3) mg/dL AST 23 (14-36) U/L ALT 16 (4-34) U/L Alkaline Phosphatase 95 (38-126) U/L Total Protein 6.5 (6.3-8.2) g/dL Albumin 3.1 L (3.5-5.0) g/dL Disposition Clinical Impression: Acute encephalopathy, HCAP (healthcare-associated pneumonia), Pyrexia, Leukocytosis Disposition: ADMITTED IP TO THIS [facility] Condition: Stable Is patient prescribed a controlled substance at d/c from ED?: No Time of Disposition: 06:55 Decision to Admit Reason: Admit from EC Decision Date: 01/19/23 Decision Time: 06:55
[2023-01-19 05:54] LABS: Anisocytosis Slight; Basophils # (A) 0.1 k/uL (0-0.2); Basophils % (A) 0 %; Eosinophils # (A) 0.1 k/uL (0-0.7); Eosinophils % (A) 0 %; HCT 34.1 % (34.0-46.0); Hypochromasia Slight; Lymphocytes # (A) 0.8 k/uL (1.0-4.8); Lymphocytes % (A) 3 %; MCH 31.4 pg (25.0-35.0); MCHC 32.2 g/dL (31.0-37.0); MCV 97.4 fL (80.0-100.0); Macrocytosis Slight; Mean Platelet Volume 8.4; Monocytes # (A) 0.5 k/uL (0-1.0); Monocytes % (A) 2 %; Neutrophils # (A) 28.1 k/uL (1.3-7.7); Neutrophils % (A) 95 %; Platelet Count 199 k/uL (150-450); RBC 3.51 m/uL (3.80-5.40); RDW 16.5 % (11.5-15.5); WBC 29.7 k/uL (3.8-10.6)
[2023-01-19 06:11] LABS: Albumin 3.1 g/dL (3.5-5.0); Calcium 8.6 mg/dL (8.4-10.2); Potassium 4.5 mmol/L (3.5-5.1); Total Bilirubin 1.1 mg/dL (0.2-1.3); Total Protein 6.5 g/dL (6.3-8.2)
[2023-01-19] MEDS ORDERED: NALOXONE 0.4 MG/ML 1 ML VIAL IV PRN (06:58)
[2023-01-19] MEDS: PIPERACILLIN-TAZOBACTAM 3.375 GM in SODIUM CHLORIDE 0.9% 100 ML IVPB SCH ×2 (08:01→22:19)
[2023-01-19] MEDS: IPRATROPIUM-ALBUTEROL 3 ML NEB INHALATION SCH ×5 (08:12→21:30)
[2023-01-19] MEDS ORDERED: bisacodyL 10 MG SUPP RECTAL PRN (09:31)
[2023-01-19] MEDS ORDERED: SODIUM CHLORIDE 0.65% NASAL SPRAY 44 ML BTL INTRANASAL PRN (09:33)
[2023-01-19] MEDS ORDERED: ACETAMINOPHEN TAB 500 MG TAB PO PRN (09:55)
[2023-01-19] MEDS: CALCIUM ACETATE 667 MG TAB PO SCH (11:26)
[2023-01-19] MEDS: allopurinoL 300 MG TAB PO SCH (11:29)
[2023-01-19] MEDS: HYDROcodone/APAP 5-325MG 1 EACH TAB PO SCH (11:30)
[2023-01-19] MEDS: carvediloL 12.5 MG TAB PO SCH ×2 (11:30→17:52)
--- NOTE | 2023-01-19 15:53 | XR ---
EXAMINATION TYPE: XR chest 2V DATE OF EXAM: 01/19/2023 COMPARISON: Chest x-ray January 02, 2022. Outside CT thorax from yesterday. HISTORY: Fever and congestion. TECHNIQUE: Frontal and lateral views of the chest are obtained. FINDINGS: Seen best on lateral view there is retrocardiac opacity identified. Right lung remains damian ar. Cardiomegaly with multi lead pacemaker is redemonstrated. The osseous structures are intact. IMPRESSION: Cardiomegaly with new posterior left lower lobe acute infiltrate and/or atelectasis.
--- NOTE | 2023-01-19 16:06 | P.HPIM ---
History of Present Illness H&P Date: 01/19/23 Chief Complaint: Fever This is a 77-year-old patient who follows with Dr. Farhad Flower. Seen by me in the ER. Resident of [facility]. Chronic stable medical conditions include depression, diabetes, peripheral neuropathy, dementia, hypertension, insomnia, hyperlipidemia, atrial fibrillation on xarelto, pacemaker for sick sinus syndrome, chronic kidney disease, gout, Parkinson's disease. Not ambulatory. Speaks a mixture of German and Syriac. Patient is brought into the [facility]. With symptoms of fever and emesis 3 lethargic. Patient's workup there was unremarkable. Check sticks or did not show anything obvious. UA was uninfected. [place] spoke to the ER physician Dr. Lomeli patient did have a congested sounding chest. No crackles. [place] to be clinically pneumonia. Patient had restarted on Zosyn. This morning patient has a slight cough. Decrease appetite. Tired. Low-grade fever. Denies any diarrhea. No abdominal pain. Review of systems: GEN.: Tired EYES: None HEENT: None NECK: None RESPIRATORY: Some cough, slight congestion CARDIOVASCULAR: No chest pain GASTROINTESTINAL: None GENITOURINARY: None MUSCULOSKELETAL: Some joint pains] LYMPHATICS: None HEMATOLOGICAL: None PSYCHIATRY: Forgetful NEUROLOGICAL: Bilateral foot drop Past medical history to include: Diabetes, paroxysmal atrial fibrillation, Parkinson's, epilepsy, hyperlipidemia, anxiety, depression, sick sinus syndrome with a pacemaker, PAD, CK D stage III, gout, dementia, GERD, non-ambulatory Social history: lives at [facility]. Needs a Nba lift a wheelchair. Incontinent. She can feed herself. No history of smoking alcohol known. Physical examination: VITAL SIGNS: 100.2, 92, 18, 131/66, 100% on 3 L GENERAL: BMI 30 2., laying in bed, awake, tired EYES: Pupils equal. Conjunctiva normal. HEENT: External appearance of nose and ears normal, oral cavity grossly normal. NECK: JVD unable to assess; masses not palpable. HEART: Heart sounds irregular; some edema. LUNGS:[ Respiratory rate increased; decreased breath sounds. Mild crackles ABDOMEN: Soft, nontender, liver spleen not palpable, no masses palpable. PSYCH: Able to answer simple questions. MUSCULOSKELETAL:No Clubbing/cyanosis;muscles-grossly intact. Evidence of OA. Bilateral foot drop NEUROLOGICAL: [Cranial nerves grossly intact; no facial asymmetry, no part of the lower extremity. LYMPHATICS: No lymph nodes palpable in the axilla and neck INVESTIGATIONS, reviewed in the clinical context: January 19: White count 29.7 hemoglobin 11 platelets 199 potassium 4.5 BUN 56 creatinine 2.71 Troponin I 0.099 Chest x-ray film personally reviewed by me-personally reviewed by me. Left lower lobe infiltrate Investigations from [facility]: White count 7.3 hemoglobin 11.7 platelets 216 sodium 139 potassium 4.9 BUN 5.3 creatinine 2.7 troponin 0.037 Procalcitonin 2.61 UA: Protein 2+, negative for nitrate use Questran eyes EKG tracing personally reviewed by me: Sinus tachycardia CT brain: Chronic changes. Dilated ventricle. CT abdomen pelvis: Unremarkable Assessment and plan: -Acute left lower lobe pneumonia, suspected gram-negative organism. Congested chest. febrile. IV ceftriaxone. -Sepsis from pneumonia IV fluids. IV ceftriaxone. -Acute delirium metabolic encephalopathy from pneumonia -Depression and anxiety Zoloft. Klonopin -Diabetes mellitus type 2, chronically on insulin Lantus 30 units.. Follow Accu-Cheks with sliding scale insulin -Diabetic peripheral neuropathy Neurontin 300 mg 3 times a day -Major cognitive impairment/dementia -Paroxysmal atrial fibrillation On xarelto 2.5 mg -sick sinus syndrome with a pacemaker -Chronic medical debility, patient is on empirically. At her baseline needs Nba lift. Fall precautions -Essential hypertension Coreg 12.5 mg by mouth twice a day amlodipine 5 mg a day -Chronic gout Allopurinol 300 mg a day -Hyperlipidemia Lipitor 40 mg daily at bedtime -Chronic kidney disease stage III likely from diabetic nephropathy and hypertensive nephrosclerosis Follow renal function. -Chronic pain syndrome [place] 5 one tablet 3 times a day -Full code Past Medical History Past Medical History: Atrial Fibrillation, Chest Pain / Angina, Dementia, Diabetes Mellitus, GERD/Reflux, Hyperlipidemia, Hypertension, Musculoskeletal Disorder, Neurologic Disorder, Pneumonia, Renal Disease, Seizure Disorder, Vascular Disorder Additional Past Medical History / Comment(s): IDDM type II, paroxysmal atrial fibrilation, parkinsons, epilepsy, muscle weakness, anemia, hyperkalemia, sick sinus syndrome with pacemaker, PVD, CKD stage 3, gastritis, dysphagia, gout History of Any Multi-Drug Resistant Organisms: None Reported Past Surgical History: Pacemaker Past Anesthesia/Blood Transfusion Reactions: No Reported Reaction Type of Cardiac Device: Permanent Pacemaker Device Placement Date:: unknown Past Psychological History: Depression Smoking Status: Unknown if ever smoked - Past Family History Father Family Medical History: Unable to Obtain Mother Family Medical History: Unable to Obtain Medications and Allergies Home Medications Medication Instructions Recorded Confirmed Type Acetaminophen Tab [Tylenol] 650 mg PO Q4H PRN MDD 3000mg 12/29/21 01/19/23 History Atorvastatin [Lipitor] 40 mg PO HS@209912/29/21 01/19/23 History Ferrous Sulfate [Iron (65 MG 325 mg PO BID@0700,1700 12/29/21 01/19/23 History Elemental)] INSULIN LISPRO (HumaLOG) [humaLOG] See Protocol SQ AC-TID 12/29/21 01/19/23 History Magnesium Oxide [Mag-Ox] 400 mg PO BID@1200,209912/29/21 01/19/23 History Melatonin 5 mg PO HS@209912/29/21 01/19/23 History Omeprazole 20 mg PO DAILY@0700 12/29/21 01/19/23 History Lactulose [Cephulac] 20 gm PO DAILY PRN ml 01/05/22 01/19/23 Rx Calcium Acetate [Phoslo] 667 mg PO DAILY@119901/19/23 01/19/23 History Cholecalciferol [Vitamin D3 (25 25 mcg PO DAILY@0701/19/23 01/19/23 History Mcg = 1000 Iu)] Furosemide [Lasix] 80 mg PO DAILY@0800 01/19/23 01/19/23 History Gabapentin [Neurontin] 300 mg PO TID@0700,1200,209901/19/23 01/19/23 History HYDROcodone/APAP 5-325MG [[place] 1 tab PO TID@0000,0700,1200 01/19/23 01/19/23 History 5-325] Insulin Glargine,Hum.rec.anlog 30 units SQ HS 01/19/23 01/19/23 History [Lantus Solostar Pen] Potassium Chloride [Klor-Con M10] 10 meq PO DAILY@0700 01/19/23 01/19/23 History Rivaroxaban [Xarelto] 2.5 mg PO DAILY@0700 01/19/23 01/19/23 History Sennosides/Docusate Sodium 1 tab PO DAILY@1700 01/19/23 01/19/23 History [Senna-S 8.6-50 mg Tablet] Sertraline [Zoloft] 25 mg PO DAILY@0800 01/19/23 01/19/23 History Sodium Chloride [Saline Mist] 1 spray EA NOSTRIL Q2H PRN 01/19/23 01/19/23 History allopurinoL [Zyloprim] 300 mg PO DAILY@0700 01/19/23 01/19/23 History bisacodyL [Dulcolax] 10 mg RECTAL DAILY PRN 01/19/23 01/19/23 History calcitrioL [Calcitriol] 0.25 mcg PO MOWEFR@1200 01/19/23 01/19/23 History carvediloL [Coreg] 25 mg PO BID@0700,1700 01/19/23 01/19/23 History clonazePAM [KlonoPIN] 0.5 mg PO HS 01/19/23 01/19/23 History guaiFENesin [Diabetic Tussin Ex] 200 mg PO Q4H PRN 01/19/23 01/19/23 History Allergies Allergy/AdvReac Type Severity Reaction Status Date / Time codeine Allergy Unknown Verified 01/19/23 07:26 hydromorphone [From Dilaudid] Allergy Unknown Verified 01/19/23 07:26 acetaminophen AdvReac see comment Verified 01/19/23 07:26 Physical Exam Vitals: Vital Signs Temp Pulse Resp BP Pulse Ox 01/19/23 08:19 93 18 01/19/23 08:16 100 01/19/23 08:13 92 16 01/19/23 08:00 100.2 F H 01/19/23 07:22 93 18 131/66 100 01/19/23 05:16 99.8 F H 96 22 152/109 99 Intake and Output 01/18/23 01/19/23 01/19/23 22:59 06:59 14:59 Other: Weight 91.626 kg Results CBC & Chem 7: 01/19/23 05:40 01/19/23 05:40 Labs: Abnormal Lab Results - Last 24 Hours (Table) 01/19/23 01/19/23 Range/Units 05:40 05:40 WBC 29.7 H (3.8-10.6) k/uL RBC 3.51 L (3.80-5.40) m/uL Hgb 11.0 L (11.4-16.0) gm/dL RDW 16.5 H (11.5-15.5) % Neutrophils # 28.1 H (1.3-7.7) k/uL Lymphocytes # 0.8 L (1.0-4.8) k/uL BUN 56 H (7-17) mg/dL Creatinine 2.71 H (0.52-1.04) mg/dL Glucose 229 H (74-99) mg/dL Albumin 3.1 L (3.5-5.0) g/dL
[2023-01-19] MEDS: SENNOSIDES-DOCUSATE SODIUM 1 EACH TAB PO SCH (17:52)
[2023-01-19] MEDS ORDERED: IPRATROPIUM-ALBUTEROL 3 ML NEB INHALATION PRN (19:54)
[2023-01-19] MEDS: ATORVASTATIN 40 MG TAB PO SCH (22:12)
[2023-01-19] MEDS: clonazePAM 0.5 MG TAB PO SCH ×2 (22:12→22:25)
[2023-01-19] MEDS: INSULIN DETEMIR (LEVEMIR) 100 UNIT/ML SYR SQ SCH (22:12)
[2023-01-19] MEDS: MELATONIN 5 MG TABLET PO SCH (22:20)
[2023-01-19 22:26] LABS: Glucose,Whole Blood 162 mg/dL (70-110)
[2023-01-20] MEDS: HYDROcodone/APAP 5-325MG 1 EACH TAB PO SCH ×3 (02:45→11:22)
[2023-01-20] MEDS: IPRATROPIUM-ALBUTEROL 3 ML NEB INHALATION SCH ×4 (05:53→21:08)
[2023-01-20] MEDS: PANTOPRAZOLE 40 MG TABLET PO SCH (07:00)
[2023-01-20] MEDS: carvediloL 12.5 MG TAB PO SCH ×2 (07:00→17:38)
[2023-01-20] MEDS: allopurinoL 300 MG TAB PO SCH (07:01)
[2023-01-20 09:14] LABS: Anisocytosis Slight; Basophils % (A) 0 %; Eosinophils # (A) 0.1 k/uL (0-0.7); Eosinophils % (A) 1 %; HCT 31.8 % (34.0-46.0); Hypochromasia Marked; Lymphocytes # (A) 1.5 k/uL (1.0-4.8); Lymphocytes % (A) 10 %; MCH 30.1 pg (25.0-35.0); MCHC 29.9 g/dL (31.0-37.0); MCV 100.8 fL (80.0-100.0); Macrocytosis Slight; Monocytes # (A) 0.5 k/uL (0-1.0); Monocytes % (A) 3 %; Neutrophils % (A) 84 %; Platelet Count 160 k/uL (150-450); RBC 3.15 m/uL (3.80-5.40); WBC 15.4 k/uL (3.8-10.6)
[2023-01-20 09:16] LABS: HGB 9.5 gm/dL (11.4-16.0)
[2023-01-20] MEDS: PIPERACILLIN-TAZOBACTAM 3.375 GM in SODIUM CHLORIDE 0.9% 100 ML IVPB SCH ×2 (09:16→21:33)
[2023-01-20 09:20] LABS: Calcium 8.1 mg/dL (8.4-10.2); Potassium 4.7 mmol/L (3.5-5.1)
[2023-01-20] MEDS: SERTRALINE 25 MG TAB PO SCH (09:22)
[2023-01-20] MEDS: RIVAROXABAN 2.5 MG TABLET PO SCH (11:23)
[2023-01-20] MEDS: CALCIUM ACETATE 667 MG TAB PO SCH (11:23)
--- NOTE | 2023-01-20 11:48 | P.CRDCN ---
History of Present Illness Consult date: 01/20/23 Reason for Consult (text): elevated troponins History of present illness: History of present illness: This is a 77-year-old female patient of Dr. Villarreal with past medical history of diabetes, hypertension, dyslipidemia, peripheral vascular disease, family history of coronary artery disease, paroxysmal atrial fibrillation on Xarelto, dementia. Patient is normally wheelchair bound and resides in a residential. She was last seen in the office in November of this year prior to AV fistula placement for end-stage renal disease. Patient was brought into the hospital from [facility] due to mental status changes along with fever and vomit ing. At [facility], she was noted to have a troponin of 0.037. She also underwent a CAT scan of the brain and CAT scan of the abdomen and chest with no acute findings. Patient is complaining of chest pain with significant tenderness to the chest wall and also complaining of upper abdominal pain. Sulaiman gabriela is a poor historian. She presented with a blood pressure 152/109. EKG Chest x-ray: Cardiomegaly with new posterior left lower lobe acute infiltrate and/or atelectasis. WBC 15.4, hemoglobin 9.5, platelet count 160. Electrolytes normal. BUN 66 and creatinine 3.06. Troponin 0.099 and 0.108. Home cardiac medications: Atorvastatin 40 mg at bedtime, Coreg 25 mg twice daily, Lasix 80 mg daily, Xarelto 2.5 mg daily Echocardiogram 12/2021 revealed normal LV size and systolic function with mild concentric left hypertrophy. Mitral valve calcification and aortic sclerosis. No pericardial effusion. Dual chamber pacemaker [facility] 12/2013 Review Of Systems: At the time of my evaluation: Constitutional: No fever, no chills. No weakness, fatigue or lethargy. EENT: No headache. No dizziness. Lungs: No shortness of breath, cough, no sputum production. No wheezing. Cardiovascular: Reports chest pain, no lower extremity edema. No palpitations. No paroxysmal nocturnal dyspnea. No orthopnea. No lightheadedness or dizziness. No syncopal episodes. Abdominal: Reports abdominal pain. reported vomiting. No diarrhea. No constipation. No bloody or tarry stools. Musculoskeletal: No myalgias. No muscle weakness, no frequent falls. No back pain. No neck pain. Integumentary: No wounds. No rash. No unusual bruising. Neurologic: No aphasia. No facial droop. No change in mentation. No head injury. No headache. Physical examination: Gen: This is a 77-year-old female resting in bed and appears to be comfortable, no acute respiratory distress noted VS: reviewed HEENT: Head is atraumatic, normocephalic. Pupils equal, round. Sclerae is anicteric. NECK: Supple. No JVD. LUNGS: Decreased breath sounds bilaterally. No intercostal retractions. HEART: Regular rate and rhythm. No murmur. ABDOMEN: Soft No tenderness. EXTREMITIES: Bilateral foot drop. NEUROLOGICAL: Patient opens eyes to verbal stimuli and answers simple questions only. Assessment: Mental status changes Fever and emesis Elevated troponin, possible non-ST elevated myocardial infarction Uncontrolled hypertension Dyslipidemia Diabetes Peripheral vascular disease Paroxysmal atrial fibrillation Dementia Plan: Continue patient's home cardiac medications area Obtain 2-D echocardiogram and Doppler study to assess cardiac structure and function Further recommendations to follow based upon clinical course Thank you kindly for this consultation. Nurse practitioner note has been reviewed, I agree with documented findings and plan of care. Patient was seen and examined. Past Medical History Past Medical History: Atrial Fibrillation, Chest Pain / Angina, Dementia, Diabetes Mellitus, GERD/Reflux, Hyperlipidemia, Hypertension, Musculoskeletal Disorder, Neurologic Disorder, Pneumonia, Renal Disease, Seizure Disorder, Vascular Disorder Additional Past Medical History / Comment(s): IDDM type II, paroxysmal atrial fibrilation, parkinsons, epilepsy, muscle weakness, anemia, hyperkalemia, sick sinus syndrome with pacemaker, PVD, CKD stage 3, gastritis, dysphagia, gout History of Any Multi-Drug Resistant Organisms: None Reported Past Surgical History: Pacemaker Past Anesthesia/Blood Transfusion Reactions: No Reported Reaction Type of Cardiac Device: Permanent Pacemaker Device Placement Date:: unknown Past Psychological History: Depression Additional Psychological History / Comment(s): Pt resides at [facility]. She is a jared lift to wheelchair. She is incontinent. She can feed herself if her meal is set up. She understands [place]ij[place]. She speaks with a thick accent. Smoking Status: Unknown if ever smoked Past Alcohol Use History: Unable to Obtain Past Drug Use History: Unable to Obtain - Past Family History Father Family Medical History: Unable to Obtain Mother Family Medical History: Unable to Obtain Medications and Allergies Home Medications Medication Instructions Recorded Confirmed Type Acetaminophen Tab [Tylenol] 650 mg PO Q4H PRN MDD 3000mg 12/29/21 01/19/23 History Atorvastatin [Lipitor] 40 mg PO HS@209912/29/21 01/19/23 History Ferrous Sulfate [Iron (65 MG 325 mg PO BID@0700,1700 12/29/21 01/19/23 History Elemental)] INSULIN LISPRO (HumaLOG) [humaLOG] See Protocol SQ AC-TID 12/29/21 01/19/23 History Magnesium Oxide [Mag-Ox] 400 mg PO BID@1200,209912/29/21 01/19/23 History Melatonin 5 mg PO HS@209912/29/21 01/19/23 History Omeprazole 20 mg PO DAILY@0712/29/21 01/19/23 History Lactulose [Cephulac] 20 gm PO DAILY PRN ml 01/05/22 01/19/23 Rx Calcium Acetate [Phoslo] 667 mg PO DAILY@119901/19/23 01/19/23 History Cholecalciferol [Vitamin D3 (25 25 mcg PO DAILY@0701/19/23 01/19/23 History Mcg = 1000 Iu)] Furosemide [Lasix] 80 mg PO DAILY@0800 01/19/23 01/19/23 History Gabapentin [Neurontin] 300 mg PO TID@0700,1200,209901/19/23 01/19/23 History HYDROcodone/APAP 5-325MG [[place] 1 tab PO TID@0000,0700,1200 01/19/23 01/19/23 History 5-325] Insulin Glargine,Hum.rec.anlog 30 units SQ HS 01/19/23 01/19/23 History [Lantus Solostar Pen] Potassium Chloride [Klor-Con M10] 10 meq PO DAILY@0700 01/19/23 01/19/23 History Rivaroxaban [Xarelto] 2.5 mg PO DAILY@0701/19/23 01/19/23 History Sennosides/Docusate Sodium 1 tab PO DAILY@1700 01/19/23 01/19/23 History [Senna-S 8.6-50 mg Tablet] Sertraline [Zoloft] 25 mg PO DAILY@0800 01/19/23 01/19/23 History Sodium Chloride [Saline Mist] 1 spray EA NOSTRIL Q2H PRN 01/19/23 01/19/23 History allopurinoL [Zyloprim] 300 mg PO DAILY@0700 01/19/23 01/19/23 History bisacodyL [Dulcolax] 10 mg RECTAL DAILY PRN 01/19/23 01/19/23 History calcitrioL [Calcitriol] 0.25 mcg PO MOWEFR@1200 01/19/23 01/19/23 History carvediloL [Coreg] 25 mg PO BID@0700,1700 01/19/23 01/19/23 History clonazePAM [KlonoPIN] 0.5 mg PO HS 01/19/23 01/19/23 History guaiFENesin [Diabetic Tussin Ex] 200 mg PO Q4H PRN 01/19/23 01/19/23 History Allergies Allergy/AdvReac Type Severity Reaction Status Date / Time codeine Allergy Unknown Verified 01/19/23 07:26 hydromorphone [From Dilaudid] Allergy Unknown Verified 01/19/23 07:26 acetaminophen AdvReac see comment Verified 01/19/23 07:26 Physical Exam Vitals: Vital Signs Temp Pulse Pulse Resp BP BP Pulse Ox 01/20/23 05:57 80 01/20/23 05:53 78 01/20/23 04:00 98.5 F 90 20 148/69 99 01/20/23 02:00 112/46 95 01/20/23 01:00 109/66 99 01/20/23 00:00 98.9 F 111/60 98 01/19/23 23:00 112/44 98 01/19/23 22:00 74 122/49 95 01/19/23 21:00 79 118/50 98 01/19/23 20:00 98.9 F 75 115/70 95 01/19/23 19:41 98.4 F 76 14 113/41 100 01/19/23 19:30 77 01/19/23 19:24 72 01/19/23 18:00 98.0 F 80 18 127/58 100 01/19/23 15:22 76 16 01/19/23 15:10 77 18 01/19/23 15:04 98.2 F 76 18 150/64 100 01/19/23 11:52 83 16 01/19/23 11:45 86 18 01/19/23 11:00 100.5 F H 80 18 151/65 98 01/19/23 08:19 93 18 01/19/23 08:16 100 01/19/23 08:13 92 16 01/19/23 08:00 100.2 F H Intake and Output 01/19/23 01/20/23 01/20/23 22:59 06:59 14:59 Output Total 220 Balance -220 Output: Urine 220 Other: Weight 91.626 kg Results 01/20/23 08:04 01/20/23 08:04 Cardiac Enzymes 01/19/23 01/19/23 Range/Units 08:56 14:10 Troponin I 0.099 H* 0.108 H* (0.000-0.034) ng/mL Current Medications Generic Name Dose Route Start Last Admin Trade Name Freq PRN Reason Stop Dose Admin Acetaminophen 650 mg 01/19/23 09:31 Acetaminophen Tab 325 Mg Tab PO Q4H PRN general discomfort Acetaminophen 500 mg 01/19/23 09:55 Acetaminophen Tab 500 Mg Tab PO Q6HR PRN Fever > 101 And/ Or Pain Hydrocodone Bitart/Acetaminophen 1 each 01/19/23 12:00 01/20/23 07:01 Hydrocodone/Apap 5-325mg 1 Each Tab PO 1 each TID@0000,0700,1200 HONG Administration Albuterol/Ipratropium 3 ml 01/19/23 20:00 01/20/23 05:53 Ipratropium-Albuterol 3 Ml Neb INHALATION 3 ml RT-QID HONG Administration Albuterol/Ipratropium 3 ml 01/19/23 19:54 Ipratropium-Albuterol 3 Ml Neb INHALATION RT-Q2H PRN Shortness Of Breath Or Wheezing Allopurinol 300 mg 01/19/23 10:00 01/20/23 07:01 Allopurinol 300 Mg Tab PO 300 mg DAILY@0700 HONG Administration Atorvastatin Calcium 40 mg 01/19/23 21:00 01/19/23 22:12 Atorvastatin 40 Mg Tab PO 40 mg HS@2100 HONG Administration Bisacodyl 10 mg 01/19/23 09:31 Bisacodyl 10 Mg Supp RECTAL DAILY PRN Constipation Calcium Acetate 667 mg 01/19/23 12:00 01/19/23 11:26 Calcium Acetate 667 Mg Tab PO 667 mg DAILY@1200 [facility] Administration Carvedilol 25 mg 01/19/23 10:00 01/20/23 07:00 Carvedilol 12.5 Mg Tab PO 25 mg BID@0700,1700 [facility] Administration Clonazepam 0.5 mg 01/19/23 21:00 01/19/23 22:25 Clonazepam 0.5 Mg Tab PO Not Given HS [facility] Piperacillin Sod/Tazobactam 100 mls @ 25 mls/hr 01/19/23 08:00 01/19/23 22:19 Sod 3.375 gm/ Sodium Chloride IVPB 25 mls/hr Q12H [facility] Administration Protocol Insulin Detemir 20 unit 01/19/23 21:00 01/19/23 22:12 Insulin Detemir (Levemir) 100 Unit/Ml Syr SQ 20 unit HS [facility] Administration Melatonin 5 mg 01/19/23 21:00 01/19/23 22:20 Melatonin 5 Mg Tablet PO Not Given HS@2100 [facility] Naloxone HCl 0.2 mg 01/19/23 06:58 Naloxone 0.4 Mg/Ml 1 Ml Vial IV Q2M PRN Opioid Reversal Pantoprazole Sodium 40 mg 01/20/23 07:00 01/20/23 07:00 Pantoprazole 40 Mg Tablet PO 40 mg DAILY@0700 [facility] Administration Rivaroxaban 2.5 mg 01/20/23 07:00 Rivaroxaban 2.5 Mg Tablet PO DAILY@0700 [facility] Protocol Senna/Docusate Sodium 1 each 01/19/23 17:00 01/19/23 17:52 Sennosides-Docusate Sodium 1 Each Tab PO 1 each DAILY@1700 [facility] Administration Sertraline HCl 25 mg 01/20/23 08:00 Sertraline 25 Mg Tab PO DAILY@0800 [facility] Sodium Chloride 1 spray 01/19/23 09:33 Sodium Chloride 0.65% Nasal [place] 44 Ml Btl INTRANASAL Q2H PRN Congestion Intake and Output 01/19/23 01/20/23 01/20/23 22:59 06:59 14:59 Output Total 220 Balance -220 Output: Urine 220 Other: Weight 91.626 kg Patient Weight 01/21/23 06:59 Weight 91.626 kg 01/19/23 05:40 01/19/23 05:40
--- NOTE | 2023-01-20 13:41 | CA ---
Transthoracic Echo Report Name: Maurice Hilton Age: 77 Gender: F : 1945 Exam Date: 01/20/2023 08:27 Exam Location: [facility] Ht (in): 65 Wt (lb): 220 Ordering Physician: Shad Vitale MD ([id number]) Attending/Referring Phys: Winifred GENAO Replacer Joaquina Escobar RDCS Procedure CPT: Indications: elevated troponin Cardiac Hx: Technical Quality: Poor Contrast 1: Lumason Total Dose (mL): 3 Contrast 2: Total Dose (mL): MEASUREMENTS (Male / Female) Normal Values 2D ECHO LV Diastolic Diameter PLAX 3.9 cm 4.2 - 5.9 / 3.9 - 5.3 cm LV Systolic Diameter PLAX 2.4 cm IVS Diastolic Thickness 1.3 cm 0.6 - 1.0 / 0.6 - 0.9 cm LVPW Diastolic Thickness 1.4 cm 0.6 - 1.0 / 0.6 - 0.9 cm LV Relative Wall Thickness 0.7 RV Internal Dim ED PLAX 3.3 cm LA Systolic Diameter LX 3.2 cm 3.0 - 4.0 / 2.7 - 3.8 cm M-MODE Aortic Root Diameter MM 2.8 cm AV Cusp Separation MM 1.6 cm DOPPLER AV Peak Velocity 164.1 cm/s AV Peak Gradient 10.8 mmHg MV Area PHT 3.7 cm??? Mitral E Point Velocity 86.7 cm/s Mitral A Point Velocity 117.7 cm/s Mitral E to A Ratio 0.7 MV Deceleration Time 202.9 ms MV E' Velocity 5.5 cm/s Mitral E to MV E' Ratio 15.8 TR Peak Velocity 304.8 cm/s TR Peak Gradient 37.2 mmHg Right Ventricular Systolic Press 42.2 mmHg FINDINGS Left Ventricle Left ventricular ejection fraction is estimated at 55-60 %. Left ventricular cavity size normal. Mild concentric left ventricular hypertrophy. Right Ventricle Mild right ventricular dilatation. Mild pulmonary hypertension. Right Atrium Normal right atrial size. Left Atrium Normal left atrial size. Mitral Valve Mitral valve thickened. Mild mitral annular calcification. Trace to mild mitral regurgitation. Aortic Valve Trileaflet aortic valve. Aortic valve sclerosis. No aortic valve stenosis or regurgitation. Tricuspid Valve Structurally normal tricuspid valve. Mild tricuspid regurgitation. Pulmonic Valve Pulmonic valve not well visualized. Pericardium Normal pericardium. No pericardial effusion. Aorta Normal size aortic root and proximal ascending aorta. CONCLUSIONS Normal LV systolic function Mild pulmonary hypertension Mild tricuspid regurgitation Previewed by: Dr. Shad Vitale MD (Electronically Signed) Final Date: 20 Jan 2023 13:41
--- NOTE | 2023-01-20 13:56 | P.PN ---
Progress Note - Text Progress Note Date: 01/20/23 Chief Complaint: Fever This is a 77-year-old patient who follows with Dr. Farhad Flower. Seen by me in the ER. Resident of [facility]. Chronic stable medical conditions include depression, diabetes, peripheral neuropathy, dementia, hypertension, insomnia, hyperlipidemia, atrial fibrillation on xarelto, pacemaker for sick sinus syndrome, chronic kidney disease, gout, Parkinson's disease. Not ambulatory. Speaks a mixture of Lao and Maori. Patient is brought into the [facility]. With symptoms of fever and emesis 3 lethargic. Patient's workup there was unremarkable. Check sticks or did not show anything obvious. UA was uninfected. [place] spoke to the ER physician Dr. Lomeli patient did have a congested sounding chest. No crackles. [place] to be clinically pneumonia. Patient had restarted on Zosyn. This morning patient has a slight cough. Decrease appetite. Tired. Low-grade fever. Denies any diarrhea. No abdominal pain. Admitted with pneumonia, sepsis, acute delirium/metabolic encephalopathy. Started on IV Zosyn. January 20: Sitting up in bed. More awake. Feeling better. Did not eat any breakfast. But eating some lunch. Afebrile Active Medications Acetaminophen (Acetaminophen Tab 325 Mg Tab) 650 mg PO Q4H PRN PRN Reason: general discomfort Acetaminophen (Acetaminophen Tab 500 Mg Tab) 500 mg PO Q6HR PRN PRN Reason: Fever > 101 And/ Or Pain Hydrocodone Bitart/Acetaminophen (Hydrocodone/Apap 5-325mg 1 Each Tab) 1 each PO TID@0000,0700,1200 [facility] Last Admin: 01/20/23 11:22 Dose: 1 each Albuterol/Ipratropium (Ipratropium-Albuterol 3 Ml Neb) 3 ml INHALATION RT-QID [facility] Last Admin: 01/20/23 12:03 Dose: 3 ml Albuterol/Ipratropium (Ipratropium-Albuterol 3 Ml Neb) 3 ml INHALATION RT-Q2H PRN PRN Reason: Shortness Of Breath Or Wheezing Allopurinol (Allopurinol 300 Mg Tab) 300 mg PO DAILY@0700 [facility] Last Admin: 01/20/23 07:01 Dose: 300 mg Atorvastatin Calcium (Atorvastatin 40 Mg Tab) 40 mg PO HS@2100 [facility] Last Admin: 01/19/23 22:12 Dose: 40 mg Bisacodyl (Bisacodyl 10 Mg Supp) 10 mg RECTAL DAILY PRN PRN Reason: Constipation Calcium Acetate (Calcium Acetate 667 Mg Tab) 667 mg PO DAILY@1200 [facility] Last Admin: 01/20/23 11:23 Dose: 667 mg Carvedilol (Carvedilol 12.5 Mg Tab) 25 mg PO BID@0700,1700 [facility] Last Admin: 01/20/23 07:00 Dose: 25 mg Clonazepam (Clonazepam 0.5 Mg Tab) 0.5 mg PO [facility] Last Admin: 01/19/23 22:25 Dose: Not Given Piperacillin Sod/Tazobactam (Sod 3.375 gm/ Sodium Chloride) 100 mls @ 25 mls/hr IVPB Q12H [facility]; Protocol Last Admin: 01/20/23 09:16 Dose: 25 mls/hr Insulin Detemir (Insulin Detemir (Levemir) 100 Unit/Ml Syr) 20 unit SQ [facility] Last Admin: 01/19/23 22:12 Dose: 20 unit Melatonin (Melatonin 5 Mg Tablet) 5 mg PO HS@2100 [facility] Last Admin: 01/19/23 22:20 Dose: Not Given Naloxone HCl (Naloxone 0.4 Mg/Ml 1 Ml Vial) 0.2 mg IV Q2M PRN PRN Reason: Opioid Reversal Pantoprazole Sodium (Pantoprazole 40 Mg Tablet) 40 mg PO DAILY@0700 [facility] Last Admin: 01/20/23 07:00 Dose: 40 mg Rivaroxaban (Rivaroxaban 2.5 Mg Tablet) 2.5 mg PO DAILY@0700 [facility]; Protocol Last Admin: 01/20/23 11:23 Dose: 2.5 mg Senna/Docusate Sodium (Sennosides-Docusate Sodium 1 Each Tab) 1 each PO DAILY@1700 [facility] Last Admin: 01/19/23 17:52 Dose: 1 each Sertraline HCl (Sertraline 25 Mg Tab) 25 mg PO DAILY@0800 [facility] Last Admin: 01/20/23 09:22 Dose: 25 mg Sodium Chloride (Sodium Chloride 0.65% Nasal [place] 44 Ml Btl) 1 spray INTRANASAL Q2H PRN PRN Reason: Congestion Past medical history to include: Diabetes, paroxysmal atrial fibrillation, Parkinson's, epilepsy, hyperlipidemia, anxiety, depression, sick sinus syndrome with a pacemaker, PAD, CK D stage III, gout, dementia, GERD, non-ambulatory Social history: lives at [facility]. Needs a Nba lift a wheelchair. Incontinent. She can feed herself. No history of smoking alcohol known. Physical examination: VITAL SIGNS: 97.9, 75, 16, 123/57, 99% on 2 L GENERAL: BMI 30 2., Sitting up in bed, eating lunch EYES: Pupils equal. Conjunctiva normal. HEENT: External appearance of nose and ears normal, oral cavity grossly normal. NECK: JVD unable to assess; masses not palpable. HEART: Heart sounds irregular; some edema. LUNGS:[ Respiratory rate increased; decreased breath sounds. ABDOMEN: Soft, nontender, liver spleen not palpable, no masses palpable. PSYCH: Answering simple questions appropriately. MUSCULOSKELETAL:No Clubbing/cyanosis;muscles-grossly intact. Evidence of OA. Bilateral foot drop INVESTIGATIONS, reviewed in the clinical context: January 20: White count 15.4 hemoglobin 9.5 platelets 160 potassium 4.7 BUN 66 creatinine 3.06 January 19: White count 29.7 hemoglobin 11 platelets 199 potassium 4.5 BUN 56 creatinine 2.71 Troponin I 0.099 Chest x-ray film personally reviewed by me-personally reviewed by me. Left lower lobe infiltrate Investigations from [facility]: White count 7.3 hemoglobin 11.7 platelets 216 sodium 139 potassium 4.9 BUN 5.3 creatinine 2.7 troponin 0.037 Procalcitonin 2.61 UA: Protein 2+, negative for nitrate use Questran eyes EKG tracing personally reviewed by me: Sinus tachycardia CT brain: Chronic changes. Dilated ventricle. CT abdomen pelvis: Unremarkable Assessment and plan: -Acute left lower lobe pneumonia, suspected gram-negative organism. Congested chest. febrile.: Some improvement IV ceftriaxone. -Sepsis from pneumonia: Better IV fluids. IV ceftriaxone. -Acute delirium metabolic encephalopathy from pneumonia: Better -Depression and anxiety Zoloft. Klonopin -Diabetes mellitus type 2, chronically on insulin Lantus 30 units.. Follow Accu-Cheks with sliding scale insulin -Diabetic peripheral neuropathy Neurontin 300 mg 3 times a day -Major cognitive impairment/dementia -Paroxysmal atrial fibrillation On xarelto 2.5 mg -sick sinus syndrome with a pacemaker -Chronic medical debility, patient is on empirically. At her baseline needs Nba lift. Fall precautions -Essential hypertension Coreg 12.5 mg by mouth twice a day amlodipine 5 mg a day -Chronic gout Allopurinol 300 mg a day -Hyperlipidemia Lipitor 40 mg daily at bedtime -Chronic kidney disease stage III likely from diabetic nephropathy and hypertensive nephrosclerosis Follow renal function. -Chronic pain syndrome [place] 5 one tablet 3 times a day -Full code
[2023-01-20] MEDS: SODIUM CHLORIDE 0.9% 1,000 ML IV SCH (17:39)
[2023-01-20] MEDS: SENNOSIDES-DOCUSATE SODIUM 1 EACH TAB PO SCH (17:39)
[2023-01-20 20:09] LABS: Glucose,Whole Blood 186 mg/dL (70-110)
[2023-01-20] MEDS: clonazePAM 0.5 MG TAB PO SCH (21:33)
[2023-01-20] MEDS: ATORVASTATIN 40 MG TAB PO SCH (21:33)
[2023-01-20] MEDS: INSULIN DETEMIR (LEVEMIR) 100 UNIT/ML SYR SQ SCH (21:33)
[2023-01-20] MEDS: MELATONIN 5 MG TABLET PO SCH (21:33)
[2023-01-21] MEDS: HYDROcodone/APAP 5-325MG 1 EACH TAB PO SCH ×4 (00:37→23:42)
[2023-01-21 06:13] LABS: Glucose,Whole Blood 120 mg/dL (70-110)
[2023-01-21] MEDS: SODIUM CHLORIDE 0.9% 1,000 ML IV SCH ×2 (06:32→16:37)
[2023-01-21] MEDS: INSULIN ASPART (NovoLOG) 100 UNIT/ML VIAL SQ SCH ×4 (06:32→21:00)
[2023-01-21] MEDS: RIVAROXABAN 2.5 MG TABLET PO SCH (06:32)
[2023-01-21] MEDS: carvediloL 12.5 MG TAB PO SCH ×2 (06:33→16:36)
[2023-01-21] MEDS: allopurinoL 300 MG TAB PO SCH (06:33)
[2023-01-21] MEDS: PANTOPRAZOLE 40 MG TABLET PO SCH (06:33)
[2023-01-21 08:00] LABS: Anisocytosis Slight; Basophils % (A) 0 %; Eosinophils # (A) 0.4 k/uL (0-0.7); Eosinophils % (A) 4 %; HCT 29.5 % (34.0-46.0); HGB 9.1 gm/dL (11.4-16.0); Hypochromasia Marked; Lymphocytes # (A) 1.6 k/uL (1.0-4.8); Lymphocytes % (A) 15 %; MCH 30.8 pg (25.0-35.0); MCHC 30.8 g/dL (31.0-37.0); MCV 100.1 fL (80.0-100.0); Macrocytosis Slight; Mean Platelet Volume 10.1; Monocytes # (A) 0.4 k/uL (0-1.0); Monocytes % (A) 4 %; Neutrophils % (A) 76 %; Platelet Count 169 k/uL (150-450); RBC 2.95 m/uL (3.80-5.40); RDW 16.7 % (11.5-15.5); WBC 10.6 k/uL (3.8-10.6)
[2023-01-21] MEDS: IPRATROPIUM-ALBUTEROL 3 ML NEB INHALATION SCH ×4 (08:16→21:35)
[2023-01-21 08:17] LABS: Calcium 7.7 mg/dL (8.4-10.2); Potassium 4.1 mmol/L (3.5-5.1)
[2023-01-21] MEDS: SERTRALINE 25 MG TAB PO SCH (09:02)
[2023-01-21] MEDS: PIPERACILLIN-TAZOBACTAM 3.375 GM in SODIUM CHLORIDE 0.9% 100 ML IVPB SCH ×2 (09:02→21:00)
[2023-01-21] MEDS: ACETAMINOPHEN TAB 325 MG TAB PO PRN ×2 (09:11→19:52)
[2023-01-21 11:46] LABS: Glucose,Whole Blood 155 mg/dL (70-110)
[2023-01-21] MEDS: CALCIUM ACETATE 667 MG TAB PO SCH (12:00)
--- NOTE | 2023-01-21 12:47 | P.PN ---
Subjective Progress Note Date: 01/21/23 History of present illness: This is a 77-year-old female patient of Dr. Villarreal with past medical history of diabetes, hypertension, dyslipidemia, peripheral vascular disease, family history of coronary artery disease, paroxysmal atrial fibrillation on Xarelto, dementia. Patient is normally wheelchair bound and resides in a retirement. She was last seen in the office in November of this year prior to AV fistula placement for end-stage renal disease. Patient was brought into the hospital from [facility] due to mental status changes along with fever and vomiting. At [place], she was noted to have a troponin of 0.037. She also underwent a CAT scan of the brain and CAT scan of the abdomen and chest with no acute findings. Patient is complaining of chest pain with significant tenderness to the chest wall and also complaining of upper abdominal pain. Patient is a poor historian. She presented with a blood pressure 152/109. EKG Chest x-ray: Cardiomegaly with new posterior left lower lobe acute infiltrate and/or atelectasis. WBC 15.4, hemoglobin 9.5, platelet count 160. Electrolytes normal. BUN 66 and creatinine 3.06. Troponin 0.099 and 0.108. Home cardiac medications: Atorvastatin 40 mg at bedtime, Coreg 25 mg twice daily, Lasix 80 mg daily, Xarelto 2.5 mg daily Echocardiogram 12/2021 revealed normal LV size and systolic function with mild concentric left hypertrophy. Mitral valve calcification and aortic sclerosis. No pericardial effusion. Dual chamber pacemaker [facility] 12/2013 Patient is more awake and alert today from yesterday. Heart rate is running in the 70s, blood pressure 111/61, telemetry sinus rhythm.patient has been afebrile for the past 24 hours. She has no lower extremity edema. Echocardiogram reveals normal LV function, mild pulmonary hypertension and mild TR. Physical examination: Gen: This is a 77-year-old female resting in bed and appears to be comfortable, no acute respiratory distress noted VS: reviewed HEENT: Head is atraumatic, normocephalic. Pupils equal, round. Sclerae is anicteric. NECK: Supple. No JVD. LUNGS: Decreased breath sounds bilaterally. No intercostal retractions. HEART: Regular rate and rhythm. No murmur. ABDOMEN: Soft No tenderness. EXTREMITIES: Bilateral foot drop. NEUROLOGICAL: Patient opens eyes to verbal stimuli and answers simple questions only. Assessment: Mental status changes Fever and emesis Elevated troponin, possibly due to renal failure, no complaints of chest pain Uncontrolled hypertension Dyslipidemia Diabetes Peripheral vascular disease Paroxysmal atrial fibrillation Dementia Plan: Continue patient's home cardiac medications area No further cardiac workup at this time. Cardiology will sign off and follow on an as-needed basis. Please reconsult for any new concerns. Nurse practitioner note has been reviewed, I agree with documented findings and plan of care. Patient was seen and examined. Objective - Vital Signs Vital signs: Vital Signs Temp 97.6 F 01/21/23 08:58 Pulse 73 01/21/23 08:58 Resp 16 01/21/23 08:58 BP 111/61 01/21/23 08:58 Pulse Ox 92 L 01/21/23 08:58 FiO2 Intake & Output 01/20/23 01/21/23 01/21/23 18:59 06:59 18:59 Intake Total 50 Output Total 450 Balance 50 -450 Weight 91.626 kg Intake: Oral 50 Output: Urine 450 Other: Voiding Method Indwelling Catheter # Bowel Movements 1 - Labs CBC & Chem 7: 01/21/23 07:46 01/21/23 07:46 Labs: Abnormal Lab Results - Last 24 Hours (Table) 01/20/23 01/21/23 01/21/23 Range/Units 20:07 06:11 07:46 RBC 2.95 L (3.80-5.40) m/uL Hgb 9.1 L (11.4-16.0) gm/dL Hct 29.5 L (34.0-46.0) % MCV 100.1 H (80.0-100.0) fL MCHC 30.8 L (31.0-37.0) g/dL RDW 16.7 H (11.5-15.5) % Neutrophils # 8.0 H (1.3-7.7) k/uL BUN (7-17) mg/dL Creatinine (0.52-1.04) mg/dL Glucose (74-99) mg/dL POC Glucose (mg/dL) 186 H 120 H (70-110) mg/dL Calcium (8.4-10.2) mg/dL 01/21/23 Range/Units 07:46 RBC (3.80-5.40) m/uL Hgb (11.4-16.0) gm/dL Hct (34.0-46.0) % MCV (80.0-100.0) fL MCHC (31.0-37.0) g/dL RDW (11.5-15.5) % Neutrophils # (1.3-7.7) k/uL BUN 68 H (7-17) mg/dL Creatinine 3.75 H (0.52-1.04) mg/dL Glucose 121 H (74-99) mg/dL POC Glucose (mg/dL) (70-110) mg/dL Calcium 7.7 L (8.4-10.2) mg/dL
--- NOTE | 2023-01-21 14:08 | P.PN ---
Progress Note - Text Progress Note Date: 01/21/23 Chief Complaint: Fever This is a 77-year-old patient who follows with Dr. Farhad Flower. Seen by me in the ER. Resident of [facility]. Chronic stable medical conditions include depression, diabetes, peripheral neuropathy, dementia, hypertension, insomnia, hyperlipidemia, atrial fibrillation on xarelto, pacemaker for sick sinus syndrome, chronic kidney disease, gout, Parkinson's disease. Not ambulatory. Speaks a mixture of German and Slovenian. Patient is brought into the [facility]. With symptoms of fever and emesis 3 lethargic. Patient's workup there was unremarkable. Check sticks or did not show anything obvious. UA was uninfected. [place] spoke to the ER physician Dr. Lomeli patient did have a congested sounding chest. No crackles. [place] to be clinically pneumonia. Patient had restarted on Zosyn. This morning patient has a slight cough. Decrease appetite. Tired. Low-grade fever. Denies any diarrhea. No abdominal pain. Admitted with pneumonia, sepsis, acute delirium/metabolic encephalopathy. Started on IV Zosyn. January 20: Sitting up in bed. More awake. Feeling better. Did not eat any breakfast. But eating some lunch. Afebrile January 21: Decreased appetite. Tired. No fever. Encourage oral intake. She wou ld like family to bring food for her Active Medications Acetaminophen (Acetaminophen Tab 325 Mg Tab) 650 mg PO Q4H PRN PRN Reason: general discomfort Last Admin: 01/21/23 09:11 Dose: 650 mg Acetaminophen (Acetaminophen Tab 500 Mg Tab) 500 mg PO Q6HR PRN PRN Reason: Fever > 101 And/ Or Pain Hydrocodone Bitart/Acetaminophen (Hydrocodone/Apap 5-325mg 1 Each Tab) 1 each PO TID@0000,0700,1200 [facility] Last Admin: 01/21/23 12:00 Dose: 1 each Albuterol/Ipratropium (Ipratropium-Albuterol 3 Ml Neb) 3 ml INHALATION RT-QID [facility] Last Admin: 01/21/23 11:35 Dose: 3 ml Albuterol/Ipratropium (Ipratropium-Albuterol 3 Ml Neb) 3 ml INHALATION RT-Q2H PRN PRN Reason: Shortness Of Breath Or Wheezing Allopurinol (Allopurinol 300 Mg Tab) 300 mg PO DAILY@0700 [facility] Last Admin: 01/21/23 06:33 Dose: 300 mg Atorvastatin Calcium (Atorvastatin 40 Mg Tab) 40 mg PO HS@2100 [facility] Last Admin: 01/20/23 21:33 Dose: 40 mg Bisacodyl (Bisacodyl 10 Mg Supp) 10 mg RECTAL DAILY PRN PRN Reason: Constipation Calcium Acetate (Calcium Acetate 667 Mg Tab) 667 mg PO DAILY@1200 [facility] Last Admin: 01/21/23 12:00 Dose: 667 mg Carvedilol (Carvedilol 12.5 Mg Tab) 25 mg PO BID@0700,1700 [facility] Last Admin: 01/21/23 06:33 Dose: 25 mg Clonazepam (Clonazepam 0.5 Mg Tab) 0.5 mg PO [facility] Last Admin: 01/20/23 21:33 Dose: 0.5 mg Piperacillin Sod/Tazobactam (Sod 3.375 gm/ Sodium Chloride) 100 mls @ 25 mls/hr IVPB Q12H [facility]; Protocol Last Admin: 01/21/23 09:02 Dose: 25 mls/hr Sodium Chloride (Saline 0.9%) 1,000 mls @ 75 mls/hr IV .[id number] [facility] Last Admin: 01/21/23 06:32 Dose: Not Given Insulin Aspart (Insulin Aspart (Novolog) 100 Unit/Ml Vial) 0 unit SQ [facility]; Protocol Last Admin: 01/21/23 12:01 Dose: 2 unit Insulin Detemir (Insulin Detemir (Levemir) 100 Unit/Ml Syr) 20 unit SQ [facility] Last Admin: 01/20/23 21:33 Dose: 20 unit Melatonin (Melatonin 5 Mg Tablet) 5 mg PO HS@2100 [facility] Last Admin: 01/20/23 21:33 Dose: 5 mg Naloxone HCl (Naloxone 0.4 Mg/Ml 1 Ml Vial) 0.2 mg IV Q2M PRN PRN Reason: Opioid Reversal Pantoprazole Sodium (Pantoprazole 40 Mg Tablet) 40 mg PO DAILY@0700 [facility] Last Admin: 01/21/23 06:33 Dose: 40 mg Rivaroxaban (Rivaroxaban 2.5 Mg Tablet) 2.5 mg PO DAILY@0700 [facility]; Protocol Last Admin: 01/21/23 06:32 Dose: 2.5 mg Senna/Docusate Sodium (Sennosides-Docusate Sodium 1 Each Tab) 1 each PO DAILY@1700 [facility] Last Admin: 01/20/23 17:39 Dose: Not Given Sertraline HCl (Sertraline 25 Mg Tab) 25 mg PO DAILY@0800 [facility] Last Admin: 01/21/23 09:02 Dose: 25 mg Sodium Chloride (Sodium Chloride 0.65% Nasal [place] 44 Ml Btl) 1 spray INTRANASAL Q2H PRN PRN Reason: Congestion Past medical history to include: Diabetes, paroxysmal atrial fibrillation, Parkinson's, epilepsy, hyperlipidemia, anxiety, depression, sick sinus syndrome with a pacemaker, PAD, CK D stage III, gout, dementia, GERD, non-ambulatory Social history: lives at [facility]. Needs a Nba lift a wheelchair. Incontinent. She can feed herself. No history of smoking alcohol known. Physical examination: VITAL SIGNS: 98, 80, 16, 143/66, 100% on 2 L GENERAL: BMI 30 2., Sitting up in bed, tired EYES: Pupils equal. Conjunctiva normal. HEENT: External appearance of nose and ears normal, oral cavity grossly normal. NECK: JVD unable to assess; masses not palpable. HEART: Heart sounds irregular; some edema. LUNGS:[ Respiratory rate increased; decreased breath sounds. ABDOMEN: Soft, nontender, liver spleen not palpable, no masses palpable. PSYCH: Answering simple questions appropriately. MUSCULOSKELETAL:No Clubbing/cyanosis;muscles-grossly intact. Evidence of OA. Bilateral foot drop INVESTIGATIONS, reviewed in the clinical context: January 21: White count 10.6 and regular 9.1 potassium 4.1 BUN 68 creatinine 3.75 January 20: White count 15.4 hemoglobin 9.5 platelets 160 potassium 4.7 BUN 66 creatinine 3.06 January 19: White count 29.7 hemoglobin 11 platelets 199 potassium 4.5 BUN 56 creatinine 2.71 Troponin I 0.099 Chest x-ray film personally reviewed by me-personally reviewed by me. Left lower lobe infiltrate Investigations from [facility]: White count 7.3 hemoglobin 11.7 platelets 216 sodium 139 potassium 4.9 BUN 5.3 creatinine 2.7 troponin 0.037 Procalcitonin 2.61 UA: Protein 2+, negative for nitrate use Questran eyes EKG tracing personally reviewed by me: Sinus tachycardia CT brain: Chronic changes. Dilated ventricle. CT abdomen pelvis: Unremarkable Assessment and plan: -Acute left lower lobe pneumonia, suspected gram-negative organism. Congested chest. febrile.: Some improvement IV ceftriaxone. -Acute kidney injury, suspect ATN.: New diagnosis Admission creatinine 2.71. Today 3.75. Consult nephrology. -Sepsis from pneumonia: Better IV fluids. IV ceftriaxone. -Acute delirium metabolic encephalopathy from pneumonia: Better -Depression and anxiety Zoloft. Klonopin -Diabetes mellitus type 2, chronically on insulin Lantus 30 units.. Follow Accu-Cheks with sliding scale insulin -Diabetic peripheral neuropathy Neurontin 300 mg 3 times a day -Major cognitive impairment/dementia -Paroxysmal atrial fibrillation On xarelto 2.5 mg -sick sinus syndrome with a pacemaker -Chronic medical debility, patient is on empirically. At her baseline needs Nba lift. Fall precautions -Essential hypertension Coreg 12.5 mg by mouth twice a day amlodipine 5 mg a day -Chronic gout Allopurinol 300 mg a day -Hyperlipidemia Lipitor 40 mg daily at bedtime -Chronic kidney disease stage III likely from diabetic nephropathy and hypertensive nephrosclerosis Follow renal function. -Chronic pain syndrome [place] 5 one tablet 3 times a day -Full code Consult nephrology. Strict I's and O's. Renal ultrasound. Cutback allopurinol 200 mg a day. Strict I's and O's
[2023-01-21] MEDS: SENNOSIDES-DOCUSATE SODIUM 1 EACH TAB PO SCH (16:36)
[2023-01-21 17:04] LABS: Glucose,Whole Blood 172 mg/dL (70-110)
--- NOTE | 2023-01-21 17:51 | US ---
EXAMINATION TYPE: US kidneys/renal and bladder DATE OF EXAM: 01/21/2023 Exam done portable COMPARISON: US 2021 CLINICAL INDICATION: Female, 77 years old with history of Evaluated for CK D; EXAM MEASUREMENTS: Right Kidney: 10.3 x 3.5 x 3.8 cm Left Kidney: 9.4 x 4.0 x 4.0 cm Right Kidney: cortical thinning Left Kidney: cortical thinning Bladder: not distended, rosales catheter Cortical thinning and increased cortical echogenicity bilaterally There is no evidence for hydronephr osis at this point in time. No nephrolithiasis is seen. No masses are identified. The urinary blad meaghan is poorly distended and thus suboptimally evaluated. Rosales catheter is in place. IMPRESSION: Evidence of chronic medical renal disease. No hydronephrosis seen bilaterally.
[2023-01-21 20:20] LABS: Glucose,Whole Blood 190 mg/dL (70-110)
[2023-01-21] MEDS: ATORVASTATIN 40 MG TAB PO SCH (21:00)
[2023-01-21] MEDS: MELATONIN 5 MG TABLET PO SCH (21:00)
[2023-01-21] MEDS: clonazePAM 0.5 MG TAB PO SCH (21:00)
[2023-01-21] MEDS: INSULIN DETEMIR (LEVEMIR) 100 UNIT/ML SYR SQ SCH (21:04)
[2023-01-22] MEDS: SODIUM CHLORIDE 0.9% 1,000 ML IV SCH ×2 (04:37→17:57)
[2023-01-22] MEDS: PANTOPRAZOLE 40 MG TABLET PO SCH (06:16)
[2023-01-22] MEDS: carvediloL 12.5 MG TAB PO SCH ×2 (06:16→16:10)
[2023-01-22] MEDS: INSULIN ASPART (NovoLOG) 100 UNIT/ML VIAL SQ SCH ×4 (06:16→20:58)
[2023-01-22] MEDS: HYDROcodone/APAP 5-325MG 1 EACH TAB PO SCH ×3 (06:17→23:09)
[2023-01-22 06:19] LABS: Glucose,Whole Blood 150 mg/dL (70-110)
[2023-01-22] MEDS: RIVAROXABAN 2.5 MG TABLET PO SCH (06:25)
[2023-01-22 07:07] LABS: Calcium 7.6 mg/dL (8.4-10.2); Potassium 4.2 mmol/L (3.5-5.1)
[2023-01-22] MEDS: allopurinoL 100 MG TAB PO SCH (08:37)
[2023-01-22] MEDS: PIPERACILLIN-TAZOBACTAM 3.375 GM in SODIUM CHLORIDE 0.9% 100 ML IVPB SCH ×2 (08:37→20:59)
[2023-01-22] MEDS: SERTRALINE 25 MG TAB PO SCH (08:37)
[2023-01-22] MEDS: IPRATROPIUM-ALBUTEROL 3 ML NEB INHALATION SCH ×4 (09:20→20:42)
[2023-01-22 11:40] LABS: Glucose,Whole Blood 185 mg/dL (70-110)
--- NOTE | 2023-01-22 12:00 | P.NPCON ---
History of Present Illness - Reason for Consult chronic renal failure - History of Present Illness Patient is a 77-year-old female with history of hypertension, chronic A. fib, dementia, chronic kidney disease NKF stage IV with previous creatinine noted to be at 2.6 and 2.9 mg/dL on 01/04/2022. Patient is not sure if she follows with a instrumentation and control technician and states that she would like to follow in [place]. Patient initially presented to [facility] with history of weakness, fever and vomiting. Patient resides at [facility]. She is currently being treated for pneumonia Blood pressure is noted to be slightly on the lower side with low systolic at 109. No previous readings available Patient currently has an indwelling Akhtar catheter. Maintained on Lasix prior to admission. Maintained on IV fluids at 100 mL an hour Serum creatinine 2.7 on 01/19/2023 and currently at 3.7 mg/dL. No evidence of obstruction noted on ultrasound. Review of Systems As per HPI Past Medical History Past Medical History: Atrial Fibrillation, Chest Pain / Angina, Dementia, Diabetes Mellitus, GERD/Reflux, Hyperlipidemia, Hypertension, Musculoskeletal Disorder, Neurologic Disorder, Pneumonia, Renal Disease, Seizure Disorder, Vascular Disorder Additional Past Medical History / Comment(s): IDDM type II, paroxysmal atrial fibrilation, parkinsons, epilepsy, muscle weakness, anemia, hyperkalemia, sick sinus syndrome with pacemaker, PVD, CKD stage 3, gastritis, dysphagia, gout History of Any Multi-Drug Resistant Organisms: None Reported Past Surgical History: Pacemaker Past Anesthesia/Blood Transfusion Reactions: No Reported Reaction Type of Cardiac Device: Permanent Pacemaker Device Placement Date:: unknown Past Psychological History: Depression Additional Psychological History / Comment(s): Pt resides at [facility]. She is a jared lift to wheelchair. She is incontinent. She can feed herself if her meal is set up. She understands [place] Island[place]. She speaks with a thick accent. Smoking Status: Unknown if ever smoked Past Alcohol Use History: Unable to Obtain Past Drug Use History: Unable to Obtain - Past Family History Father Family Medical History: Unable to Obtain Mother Family Medical History: Unable to Obtain Medications and Allergies Home Medications Medication Instructions Recorded Confirmed Type Acetaminophen Tab [Tylenol] 650 mg PO Q4H PRN MDD 3000mg 12/29/21 01/19/23 History Atorvastatin [Lipitor] 40 mg PO HS@2100 04/28/22 05/19/23 History Ferrous Sulfate [Iron (65 MG 325 mg PO BID@0700,1700 12/29/21 01/19/23 History Elemental)] INSULIN LISPRO (HumaLOG) [humaLOG] See Protocol SQ AC-TID 12/29/21 01/19/23 History Magnesium Oxide [Mag-Ox] 400 mg PO BID@1200,209912/29/21 01/19/23 History Melatonin 5 mg PO HS@209912/29/21 01/19/23 History Omeprazole 20 mg PO DAILY@0700 12/29/21 01/19/23 History Lactulose [Cephulac] 20 gm PO DAILY PRN ml 01/05/22 01/19/23 Rx Calcium Acetate [Phoslo] 667 mg PO DAILY@1200 01/19/23 01/19/23 History Cholecalciferol [Vitamin D3 (25 25 mcg PO DAILY@0700 01/19/23 01/19/23 History Mcg = 1000 Iu)] Furosemide [Lasix] 80 mg PO DAILY@0800 01/19/23 01/19/23 History Gabapentin [Neurontin] 300 mg PO TID@0700,1200,209901/19/23 01/19/23 History HYDROcodone/APAP 5-325MG [[place] 1 tab PO TID@0000,0700,1200 01/19/23 01/19/23 History 5-325] Insulin Glargine,Hum.rec.anlog 30 units SQ HS 01/19/23 01/19/23 History [Lantus Solostar Pen] Potassium Chloride [Klor-Con M10] 10 meq PO DAILY@0701/19/23 01/19/23 History Rivaroxaban [Xarelto] 2.5 mg PO DAILY@0701/19/23 01/19/23 History Sennosides/Docusate Sodium 1 tab PO DAILY@17001/19/23 01/19/23 History [Senna-S 8.6-50 mg Tablet] Sertraline [Zoloft] 25 mg PO DAILY@0800 01/19/23 01/19/23 History Sodium Chloride [Saline Mist] 1 spray EA NOSTRIL Q2H PRN 01/19/23 01/19/23 History allopurinoL [Zyloprim] 300 mg PO DAILY@0700 01/19/23 01/19/23 History bisacodyL [Dulcolax] 10 mg RECTAL DAILY PRN 01/19/23 01/19/23 History calcitrioL [Calcitriol] 0.25 mcg PO MOWEFR@1200 01/19/23 01/19/23 History carvediloL [Coreg] 25 mg PO BID@0700,1700 01/19/23 01/19/23 History clonazePAM [KlonoPIN] 0.5 mg PO HS 01/19/23 01/19/23 History guaiFENesin [Diabetic Tussin Ex] 200 mg PO Q4H PRN 01/19/23 01/19/23 History Allergies Allergy/AdvReac Type Severity Reaction Status Date / Time codeine Allergy Unknown Verified 01/19/23 07:26 hydromorphone [From Dilaudid] Allergy Unknown Verified 01/19/23 07:26 acetaminophen AdvReac see comment Verified 01/19/23 07:26 Physical Exam Vitals: Vital Signs Temp Pulse Pulse Pulse Resp BP Pulse Ox 01/22/23 09:30 76 01/22/23 09:22 90 L 01/22/23 09:20 72 01/22/23 08:35 98.2 F 72 16 118/71 94 L 01/21/23 21:43 80 01/21/23 21:35 76 01/21/23 20:00 97.9 F 77 16 144/68 100 01/21/23 16:35 98.2 F 70 16 141/77 100 01/21/23 15:42 82 01/21/23 15:32 80 01/21/23 11:59 98.0 F 80 16 143/66 100 Intake and Output 01/21/23 01/22/23 01/22/23 22:59 06:59 14:59 Intake Total 360 Output Total 350 Balance 360 -350 Intake: Oral 360 Output: Urine 350 Other: Voiding Method Indwelling Catheter Indwelling Catheter Patient is awake, comfortable, no acute distress Examination of the heart S1 and S2 Examination of the lungs decreased breath sounds at the bases Abdomen is soft nontender Examination lower extremities shows edema 1+ bilaterally VACUUM PAN TENDER exam grossly intact Results - Lab Results Most recent lab results Calcium 7.6 mg/dL (8.4-10.2) L 01/22/23 06:00 01/21/23 07:46 01/22/23 06:00 Assessment and Plan Assessment: 1. Acute kidney injury most likely ATN currently nonoliguric. Possible progression of underlying chronic kidney disease as well. No evidence of obstruction noted on ultrasound. Check urine analysis. No nephrotoxic agents on board. Maintained on IV fluids. 2. Chronic kidney disease NKF stage IV with baseline creatinine around 2.7-3 mg/dL. Previous UA showed trace protein. Patient states she would like to follow with nephrology in [place]. 3. Left lower lobe infiltrates/pneumonia maintained on antibiotics 4. 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 Anemia of chronic disease rule out iron deficiency Plan: Continue IV fluids Continue to encourage increase oral intake Continue with Rocaltrol Check UA and Repeat labs in a.m. Check iron profile Patient will need to follow closely as outpatient for preparation for renal replacement therapy. NK for the consultation. We will continue to follow the patient with you during her hospitalization.
[2023-01-22] MEDS: CALCIUM ACETATE 667 MG TAB PO SCH (12:20)
[2023-01-22 13:10] VITALS: BMI 33.6
--- NOTE | 2023-01-22 14:51 | P.PN ---
Progress Note - Text Progress Note Date: 01/22/23 Chief Complaint: Fever This is a 77-year-old patient who follows with Dr. Farhad Flower. Seen by me in the ER. Resident of [facility]. Chronic stable medical conditions include depression, diabetes, peripheral neuropathy, dementia, hypertension, insomnia, hyperlipidemia, atrial fibrillation on xarelto, pacemaker for sick sinus syndrome, chronic kidney disease, gout, Parkinson's disease. Not ambulatory. Speaks a mixture of Chinese and Ethiopian. Patient is brought into the [facility]. With symptoms of fever and emesis 3 lethargic. Patient's workup there was unremarkable. Check sticks or did not show anything obvious. UA was uninfected. Thorax spoke to the ER physician Dr. Lomeli patient did have a congested sounding chest. No crackles. Stuart to be clinically pneumonia. Patient had restarted on Zosyn. This morning patient has a slight cough. Decrease appetite. Tired. Low-grade fever. Denies any diarrhea. No abdominal pain. Admitted with pneumonia, sepsis, acute delirium/metabolic encephalopathy. Started on IV Zosyn. January 20: Sitting up in bed. More awake. Feeling better. Did not eat any breakfast. But eating some lunch. Afebrile January 21: Decreased appetite. Tired. No fever. Encourage oral intake. She wou ld like family to bring food for her. January 22: Patient eating some with encouragement. Breathing stable. Off oxygen. On IV Zosyn. Discussed with case work aide. Nephrology was consulted for acute kidney injury. No renal offensive medications. Active Medications Acetaminophen (Acetaminophen Tab 325 Mg Tab) 650 mg PO Q4H PRN PRN Reason: general discomfort Last Admin: 01/21/23 19:52 Dose: 650 mg Acetaminophen (Acetaminophen Tab 500 Mg Tab) 500 mg PO Q6HR PRN PRN Reason: Fever > 101 And/ Or Pain Hydrocodone Bitart/Acetaminophen (Hydrocodone/Apap 5-325mg 1 Each Tab) 1 each PO TID@0000,0700,1200 [facility] Last Admin: 01/22/23 12:19 Dose: 1 each Albuterol/Ipratropium (Ipratropium-Albuterol 3 Ml Neb) 3 ml INHALATION RT-QID [facility] Last Admin: 01/22/23 11:59 Dose: 3 ml Albuterol/Ipratropium (Ipratropium-Albuterol 3 Ml Neb) 3 ml INHALATION RT-Q2H PRN PRN Reason: Shortness Of Breath Or Wheezing Allopurinol (Allopurinol 100 Mg Tab) 100 mg PO DAILY [facility] Last Admin: 01/22/23 08:37 Dose: 100 mg Atorvastatin Calcium (Atorvastatin 40 Mg Tab) 40 mg PO HS@2100 [facility] Last Admin: 01/21/23 21:00 Dose: 40 mg Bisacodyl (Bisacodyl 10 Mg Supp) 10 mg RECTAL DAILY PRN PRN Reason: Constipation Calcium Acetate (Calcium Acetate 667 Mg Tab) 667 mg PO DAILY@1200 [facility] Last Admin: 01/22/23 12:20 Dose: 667 mg Carvedilol (Carvedilol 12.5 Mg Tab) 25 mg PO BID@0700,1700 [facility] Last Admin: 01/22/23 06:16 Dose: 25 mg Clonazepam (Clonazepam 0.5 Mg Tab) 0.5 mg PO [facility] Last Admin: 01/21/23 21:00 Dose: 0.5 mg Piperacillin Sod/Tazobactam (Sod 3.375 gm/ Sodium Chloride) 100 mls @ 25 mls/hr IVPB Q12H [facility]; Protocol Last Admin: 01/22/23 08:37 Dose: 25 mls/hr Sodium Chloride (Saline 0.9%) 1,000 mls @ 100 mls/hr IV .Q10H [facility] Last Admin: 01/22/23 04:37 Dose: 100 mls/hr Insulin Aspart (Insulin Aspart (Novolog) 100 Unit/Ml Vial) 0 unit SQ [facility]; Protocol Last Admin: 01/22/23 12:20 Dose: 2 unit Insulin Detemir (Insulin Detemir (Levemir) 100 Unit/Ml Syr) 20 unit SQ [facility] Last Admin: 01/21/23 21:04 Dose: 20 unit Melatonin (Melatonin 5 Mg Tablet) 5 mg PO HS@2100 [facility] Last Admin: 01/21/23 21:00 Dose: 5 mg Naloxone HCl (Naloxone 0.4 Mg/Ml 1 Ml Vial) 0.2 mg IV Q2M PRN PRN Reason: Opioid Reversal Pantoprazole Sodium (Pantoprazole 40 Mg Tablet) 40 mg PO DAILY@0700 [facility] Last Admin: 01/22/23 06:16 Dose: 40 mg Rivaroxaban (Rivaroxaban 2.5 Mg Tablet) 2.5 mg PO DAILY@0700 [facility]; Protocol Last Admin: 01/22/23 06:25 Dose: 2.5 mg Senna/Docusate Sodium (Sennosides-Docusate Sodium 1 Each Tab) 1 each PO DAILY@1700 [facility] Last Admin: 01/21/23 16:36 Dose: 1 each Sertraline HCl (Sertraline 25 Mg Tab) 25 mg PO DAILY@0800 [facility] Last Admin: 01/22/23 08:37 Dose: 25 mg Sodium Chloride (Sodium Chloride 0.65% Nasal [place] 44 Ml Btl) 1 spray INTRANASAL Q2H PRN PRN Reason: Congestion Past medical history to include: Diabetes, paroxysmal atrial fibrillation, Parkinson's, epilepsy, hyperlipidemia, anxiety, depression, sick sinus syndrome with a pacemaker, PAD, CK D stage III, gout, dementia, GERD, non-ambulatory Social history: lives at [facility]. Needs a Nba lift a wheelchair. Incontinent. She can feed herself. No history of smoking alcohol known. Physical examination: VITAL SIGNS: 98.2, 72, 18, 118/71, 94% room air GENERAL: BMI 30 2., Sitting up in bed, tired EYES: Pupils equal. Conjunctiva normal. HEENT: External appearance of nose and ears normal, oral cavity grossly normal. NECK: JVD unable to assess; masses not palpable. HEART: Heart sounds irregular; some edema. LUNGS:[ Respiratory rate increased; decreased breath sounds. ABDOMEN: Soft, nontender, liver spleen not palpable, no masses palpable. PSYCH: Answering simple questions appropriately. MUSCULOSKELETAL:No Clubbing/cyanosis;muscles-grossly intact. Evidence of OA. Bilateral foot drop INVESTIGATIONS, reviewed in the clinical context: Renal ultrasound: Both right and left kidney cortical thinning. January 22: Potassium 4.2 creatinine 3.76 January 21: White count 10.6 and regular 9.1 potassium 4.1 BUN 68 creatinine 3.75 January 20: White count 15.4 hemoglobin 9.5 platelets 160 potassium 4.7 BUN 66 creatinine 3.06 January 19: White count 29.7 hemoglobin 11 platelets 199 potassium 4.5 BUN 56 creatinine 2.71 Troponin I 0.099 Chest x-ray film personally reviewed by me-personally reviewed by me. Left lower lobe infiltrate Investigations from [facility]: White count 7.3 hemoglobin 11.7 platelets 216 sodium 139 potassium 4.9 BUN 5.3 creatinine 2.7 troponin 0.037 Procalcitonin 2.61 UA: Protein 2+, negative for nitrate use Questran eyes EKG tracing personally reviewed by me: Sinus tachycardia CT brain: Chronic changes. Dilated ventricle. CT abdomen pelvis: Unremarkable Assessment and plan: -Acute left lower lobe pneumonia, suspected gram-negative organism. Congested chest. febrile.: Improving IV ceftriaxone. -Acute kidney injury, suspect ATN.: Not improving Admission creatinine 2.71. Now 3.76. Follow with nephrology -Sepsis from pneumonia: Better IV fluids. IV ceftriaxone. -Acute delirium metabolic encephalopathy from pneumonia: Better -Depression and anxiety Zoloft. Klonopin -Diabetes mellitus type 2, chronically on insulin Lantus 30 units.. Follow Accu-Cheks with sliding scale insulin -Diabetic peripheral neuropathy Neurontin 300 mg 3 times a day -Major cognitive impairment/dementia -Paroxysmal atrial fibrillation On xarelto 2.5 mg -sick sinus syndrome with a pacemaker -Chronic medical debility, patient is on empirically. At her baseline needs Nba lift. Fall precautions -Essential hypertension Coreg 12.5 mg by mouth twice a day amlodipine 5 mg a day -Chronic gout Allopurinol 300 mg a day -Hyperlipidemia Lipitor 40 mg daily at bedtime -Chronic kidney disease stage III likely from diabetic nephropathy and hypertensive nephrosclerosis Renal ultrasound showing bilateral cortical thinning. -Chronic pain syndrome [place] 5 one tablet 3 times a day -Full code Follow with nephrology.
[2023-01-22] MEDS: SENNOSIDES-DOCUSATE SODIUM 1 EACH TAB PO SCH (16:10)
[2023-01-22 16:48] LABS: Glucose,Whole Blood 191 mg/dL (70-110)
[2023-01-22 19:33] VITALS: RESP 16
[2023-01-22 20:01] LABS: Glucose,Whole Blood 167 mg/dL (70-110)
[2023-01-22] MEDS: ACETAMINOPHEN TAB 325 MG TAB PO PRN (20:58)
[2023-01-22] MEDS: INSULIN DETEMIR (LEVEMIR) 100 UNIT/ML SYR SQ SCH (20:58)
[2023-01-22] MEDS: ATORVASTATIN 40 MG TAB PO SCH (20:59)
[2023-01-22] MEDS: clonazePAM 0.5 MG TAB PO SCH (20:59)
[2023-01-22] MEDS: MELATONIN 5 MG TABLET PO SCH (20:59)
[2023-01-23 06:09] LABS: Glucose,Whole Blood 104 mg/dL (70-110)
[2023-01-23] MEDS: RIVAROXABAN 2.5 MG TABLET PO SCH (06:26)
[2023-01-23] MEDS: PANTOPRAZOLE 40 MG TABLET PO SCH (06:26)
[2023-01-23] MEDS: HYDROcodone/APAP 5-325MG 1 EACH TAB PO SCH ×2 (06:26→13:28)
[2023-01-23] MEDS: carvediloL 12.5 MG TAB PO SCH ×2 (06:26→16:52)
[2023-01-23] MEDS: SODIUM CHLORIDE 0.9% 1,000 ML IV SCH ×3 (06:27→20:13)
[2023-01-23] MEDS: INSULIN ASPART (NovoLOG) 100 UNIT/ML VIAL SQ SCH ×4 (06:34→20:12)
[2023-01-23] MEDS: allopurinoL 100 MG TAB PO SCH (07:57)
[2023-01-23] MEDS: SERTRALINE 25 MG TAB PO SCH (07:57)
[2023-01-23] MEDS: PIPERACILLIN-TAZOBACTAM 3.375 GM in SODIUM CHLORIDE 0.9% 100 ML IVPB SCH ×2 (07:57→20:13)
[2023-01-23 08:09] VITALS: BP 138/67; TEMP 97.7
[2023-01-23] MEDS: IPRATROPIUM-ALBUTEROL 3 ML NEB INHALATION SCH ×3 (09:15→15:54)
[2023-01-23 10:52] LABS: Calcium 7.7 mg/dL (8.4-10.2); Potassium 4.3 mmol/L (3.5-5.1)
[2023-01-23 11:19] VITALS: PULSE 69
--- NOTE | 2023-01-23 11:32 | P.PN ---
Subjective Patient is seen for follow-up for chronic kidney disease and acute kidney injury. Patient is currently maintained on IV fluids. She does follow-up at our office. No significant complaints today. Serum creatinine at 3.8 today from 3.7 yesterday. Patient has an indwelling Akhtar catheter. 24 hour urine output charted at 775 however this may not be accurate. No complaints of nausea vomiting or abdominal pain. Objective - Vital Signs Vital signs: Vital Signs Temp 97.7 F 01/23/23 07:55 Pulse 72 01/23/23 09:24 Resp 16 01/23/23 07:55 BP 138/67 01/23/23 07:55 Pulse Ox 97 01/23/23 09:15 FiO2 Intake & Output 01/22/23 01/23/23 01/23/23 18:59 06:59 18:59 Output Total 450 Balance -450 Weight 91.626 kg Output: Urine 450 Other: Voiding Method Indwelling Catheter Indwelling Catheter Indwelling Catheter # Bowel Movements 1 - Exam Patient is awake, comfortable, no acute distress Examination of the heart S1 and S2 Examination of the lungs decreased breath sounds at the bases Abdomen is soft nontender Examination lower extremities shows edema 1+ bilaterally 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 It does not look like she has been walking much prior to admission. - Labs CBC & Chem 7: 01/21/23 07:46 01/23/23 10:10 Labs: Abnormal Lab Results - Last 24 Hours (Table) 01/22/23 01/22/23 01/22/23 Range/Units 11:38 16:44 19:59 Chloride (98-107) mmol/L Carbon Dioxide (22-30) mmol/L BUN (7-17) mg/dL Creatinine (0.52-1.04) mg/dL Glucose (74-99) mg/dL POC Glucose (mg/dL) 185 H 191 H 167 H (70-110) mg/dL Calcium (8.4-10.2) mg/dL 01/23/23 Range/Units 10:10 Chloride 109 H (98-107) mmol/L Carbon Dioxide 20 L (22-30) mmol/L BUN 62 H (7-17) mg/dL Creatinine 3.86 H (0.52-1.04) mg/dL Glucose 130 H (74-99) mg/dL POC Glucose (mg/dL) (70-110) mg/dL Calcium 7.7 L (8.4-10.2) mg/dL Microbiology - Last 24 Hours (Table) 01/19/23 21:45 Blood Culture - Preliminary Blood Assessment and Plan Assessment: 1. Acute kidney injury most likely ATN currently nonoliguric. Possible progression of underlying chronic kidney disease as well. No evidence of obstruction noted on ultrasound. Check urine analysis. No nephrotoxic agents on board. Maintained on IV fluids. 2. Chronic kidney disease NKF stage IV with baseline creatinine around 2.7-3 mg/dL. etiology is diabetic kidney disease and nephrosclerosis. 3. Left lower lobe infiltrates/pneumonia maintained on antibiotics 4. 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 Anemia of chronic disease rule out iron deficiency Plan: Continue with IV fluids Accurate I's and O's Check UA
[2023-01-23 11:42] LABS: Glucose,Whole Blood 140 mg/dL (70-110)
[2023-01-23] MEDS: CALCIUM ACETATE 667 MG TAB PO SCH (13:28)
--- NOTE | 2023-01-23 15:05 | P.DS ---
Providers Date of admission: 01/19/23 07:00 Expected date of discharge: 01/23/23 Attending physician: Jeff Schumacher Consults: 01/19/23 11:46 Consult Physician Stat Consulting Provider: Shad Vitale Consult Reason/Comments: evelated troponin Do you want consulting provider notified?: Yes 01/21/23 14:08 Consult Physician Routine Consulting Provider: Jay Jay Hahn Consult Reason/Comments: Acute on CK D Do you want consulting provider notified?: Yes Primary care physician: Farhad Flower [facility] Course: Chief Complaint: Fever This is a 77-year-old patient who follows with Dr. Farhad Flower. Seen by me in the ER. Resident of [facility]. Chronic stable medical conditions include depression, diabetes, peripheral neuropathy, dementia, hypertension, insomnia, hyperlipidemia, atrial fibrillation on xarelto, pacemaker for sick sinus syndrome, chronic kidney disease, gout, Parkinson's disease. Not ambulatory. Speaks a mixture of Estonian and [place]. Patient is brought into the [facility]. With symptoms of fever and emesis 3 lethargic. Patient's workup there was unremarkable. Check sticks or did not show anything obvious. UA was uninfected. [place]ax spoke to the ER physician Dr. Lomeli patient did have a congested sounding chest. No crackles. [place] to be clinically pneumonia. Patient had restarted on Zosyn. This morning patient has a slight cough. Decrease appetite. Tired. Low-grade fever. Denies any diarrhea. No abdominal pain. Admitted with pneumonia, sepsis, acute delirium/metabolic encephalopathy. Started on IV Zosyn. January 20: Sitting up in bed. More awake. Feeling better. Did not eat any breakfast. But eating some lunch. Afebrile January 21: Decreased appetite. Tired. No fever. Encourage oral intake. She would like family to bring food for her. January 22: Patient eating some with encouragement. Breathing stable. Off oxygen. On IV Zosyn. Discussed with case preparer and liner. Nephrology was consulted for acute kidney injury. No renal offensive medications. January 23: Oral intake fair. Discussed with Dr. Flores from nephrology. She will talk to the family outpatient about possible renal replacement therapy. Creatinine seems to have leveled out. Discussed with patient. And case preparer and liner. Antibiotic course completed Discussion and discharge planning more than 35 minutes Past medical history to include: Diabetes, paroxysmal atrial fibrillation, Parkinson's, epilepsy, hyperlipidemia, anxiety, depression, sick sinus syndrome with a pacemaker, PAD, CK D stage III, gout, dementia, GERD, non-ambulatory Social history: lives at [facility]. Needs a Nba lift a wheelchair. Incontinent. She can feed herself. No history of smoking alcohol known. Physical examination: VITAL SIGNS: 97.7, 69, 16, 10/02/2066, 96% room air GENERAL: BMI 30 2., Sitting up in bed, comfortable EYES: Pupils equal. Conjunctiva normal. HEENT: External appearance of nose and ears normal, oral cavity grossly normal. NECK: JVD unable to assess; masses not palpable. HEART: Heart sounds irregular; some edema. LUNGS:[ Respiratory rate increased; decreased breath sounds. ABDOMEN: Soft, nontender, liver spleen not palpable, no masses palpable. PSYCH: Answering simple questions appropriately. MUSCULOSKELETAL:No Clubbing/cyanosis;muscles-grossly intact. Evidence of OA. Bilateral foot drop INVESTIGATIONS, reviewed in the clinical context: January 23: Potassium 4.3 BUN 62 creatinine 3.86 Renal ultrasound: Both right and left kidney cortical thinning. January 22: Potassium 4.2 creatinine 3.76 January 21: White count 10.6 and regular 9.1 potassium 4.1 BUN 68 creatinine 3.75 January 20: White count 15.4 hemoglobin 9.5 platelets 160 potassium 4.7 BUN 66 creatinine 3.06 January 19: White count 29.7 hemoglobin 11 platelets 199 potassium 4.5 BUN 56 creatinine 2.71 Troponin I 0.099 Chest x-ray film personally reviewed by me-personally reviewed by me. Left lower lobe infiltrate Investigations from [facility]: White count 7.3 hemoglobin 11.7 platelets 216 sodium 139 potassium 4.9 BUN 5.3 creatinine 2.7 troponin 0.037 Procalcitonin 2.61 UA: Protein 2+, negative for nitrate use Questran eyes EKG tracing personally reviewed by me: Sinus tachycardia CT brain: Chronic changes. Dilated ventricle. CT abdomen pelvis: Unremarkable Assessment and plan: -Acute left lower lobe pneumonia, suspected gram-negative organism. Congested chest. febrile.: Improving IV ceftriaxone. Completed course -Acute kidney injury, suspect ATN.: Not improving Admission creatinine 2.71. Now 3.76. Follow with nephrology -Sepsis from pneumonia: Better IV fluids. IV ceftriaxone. -Acute delirium metabolic encephalopathy from pneumonia: Improved -Depression and anxiety Zoloft. Klonopin -Diabetes mellitus type 2, chronically on insulin Lantus 30 units.. Follow Accu-Cheks with sliding scale insulin -Diabetic peripheral neuropathy Neurontin 300 mg 3 times a day -Major cognitive impairment/dementia -Paroxysmal atrial fibrillation On xarelto 2.5 mg -sick sinus syndrome with a pacemaker -Chronic medical debility, patient is on empirically. At her baseline needs Nba lift. Fall precautions -Essential hypertension Coreg 12.5 mg by mouth twice a day amlodipine 5 mg a day -Chronic gout Allopurinol 300 mg a day -Hyperlipidemia Lipitor 40 mg daily at bedtime -Chronic kidney disease stage III likely from diabetic nephropathy and hypertensive nephrosclerosis Renal ultrasound showing bilateral cortical thinning. -Chronic pain syndrome [place] 5 one tablet 3 times a day -Full code Disposition: [facility] Plan - Discharge Summary Discharge Rx Participant: No New Discharge Prescriptions: New Acetaminophen Tab [Tylenol] 500 mg PO Q6HR PRN tab PRN Reason: Fever > 101 And/ Or Pain Ipratropium-Albuterol Nebulize [Duoneb 0.5 mg-3 mg/3 ml Soln] 3 ml INHALATION BID each Continue INSULIN LISPRO (HumaLOG) [humaLOG] See Protocol SQ AC-TID Ferrous Sulfate [Iron (65 MG Elemental)] 325 mg PO BID@0700,1700 Lactulose [Cephulac] 20 gm PO DAILY PRN ml PRN Reason: Constipation Sertraline [Zoloft] 25 mg PO DAILY@0800 Rivaroxaban [Xarelto] 2.5 mg PO DAILY@0700 Cholecalciferol [Vitamin D3 (25 Mcg = 1000 Iu)] 25 mcg PO DAILY@0700 Potassium Chloride [Klor-Con M10] 10 meq PO DAILY@0700 Calcium Acetate [PhosLo] 667 mg PO DAILY@1200 Acetaminophen Tab [Tylenol] 650 mg PO Q4H PRN MDD 3000mg PRN Reason: general discomfort Omeprazole 20 mg PO DAILY@0700 Atorvastatin [Lipitor] 40 mg PO HS@2100 Sodium Chloride [Saline Mist] 1 spray EA NOSTRIL Q2H PRN PRN Reason: Congestion Sennosides/Docusate Sodium [Senna-S 8.6-50 mg Tablet] 1 tab PO DAILY@1700 Furosemide [Lasix] 80 mg PO DAILY@0800 bisacodyL [Dulcolax] 10 mg RECTAL DAILY PRN PRN Reason: Constipation carvediloL [Coreg] 25 mg PO BID@0700,1700 calcitrioL [Calcitriol] 0.25 mcg PO MOWEFR@1200 allopurinoL [Zyloprim] 300 mg PO DAILY@0700 clonazePAM [KlonoPIN] 0.5 mg PO HS #3 tab HYDROcodone/APAP 5-325MG [[place] 5-325] 1 tab PO TID@0000,0700,1200 #9 tab Changed Insulin Glargine,Hum.rec.anlog [Lantus Solostar Pen] 25 units SQ HS #0 Gabapentin [Neurontin] 300 mg PO HS #3 Discontinued Magnesium Oxide [Mag-Ox] 400 mg PO BID@1200,2100 Melatonin 5 mg PO HS@2100 guaiFENesin [Diabetic Tussin Ex] 200 mg PO Q4H PRN PRN Reason: Cough Discharge Medication List Acetaminophen Tab [Tylenol] 650 mg PO Q4H PRN MDD 3000mg 12/29/21 [History] Atorvastatin [Lipitor] 40 mg PO HS@2100 12/29/21 [History] Ferrous Sulfate [Iron (65 MG Elemental)] 325 mg PO BID@0700,1700 12/29/21 [History] INSULIN LISPRO (HumaLOG) [humaLOG] See Protocol SQ AC-TID 12/29/21 [History] Omeprazole 20 mg PO DAILY@0700 12/29/21 [History] Lactulose [Cephulac] 20 gm PO DAILY PRN ml 01/05/22 [Rx] Calcium Acetate [PhosLo] 667 mg PO DAILY@1200 01/19/23 [History] Cholecalciferol [Vitamin D3 (25 Mcg = 1000 Iu)] 25 mcg PO DAILY@0700 01/19/23 [History] Furosemide [Lasix] 80 mg PO DAILY@0800 01/19/23 [History] Potassium Chloride [Klor-Con M10] 10 meq PO DAILY@0700 01/19/23 [History] Rivaroxaban [Xarelto] 2.5 mg PO DAILY@0700 01/19/23 [History] Sennosides/Docusate Sodium [Senna-S 8.6-50 mg Tablet] 1 tab PO DAILY@1700 01/19/23 [History] Sertraline [Zoloft] 25 mg PO DAILY@0800 01/19/23 [History] Sodium Chloride [Saline Mist] 1 spray EA NOSTRIL Q2H PRN 01/19/23 [History] allopurinoL [Zyloprim] 300 mg PO DAILY@0700 01/19/23 [History] bisacodyL [Dulcolax] 10 mg RECTAL DAILY PRN 01/19/23 [History] calcitrioL [Calcitriol] 0.25 mcg PO MOWEFR@1200 01/19/23 [History] carvediloL [Coreg] 25 mg PO BID@0700,1700 01/19/23 [History] Acetaminophen Tab [Tylenol] 500 mg PO Q6HR PRN tab 01/23/23 [Rx] Gabapentin [Neurontin] 300 mg PO HS #3 01/23/23 [Rx] HYDROcodone/APAP 5-325MG [[place] 5-325] 1 tab PO TID@0000,0700,1200 #9 tab 01/23/23 [Rx] Insulin Glargine,Hum.rec.anlog [Lantus Solostar Pen] 25 units SQ HS #0 01/23/23 [Rx] Ipratropium-Albuterol Nebulize [Duoneb 0.5 mg-3 mg/3 ml Soln] 3 ml INHALATION BID each 01/23/23 [Rx] clonazePAM [KlonoPIN] 0.5 mg PO HS #3 tab 01/23/23 [Rx] Follow up Appointment(s)/Referral(s): Aleksandra Flores MD [STAFF PHYSICIAN] - 1 Week Farhad Flower MD [Primary Care Provider] - 1-2 days [facility] [NON-STAFF] - 1 Week
[2023-01-23 16:08] LABS: % Iron Saturation 26.61 (12.00-45.00)
[2023-01-23 16:29] LABS: Glucose,Whole Blood 169 mg/dL (70-110)
[2023-01-23] MEDS: SENNOSIDES-DOCUSATE SODIUM 1 EACH TAB PO SCH (16:52)
[2023-01-23 20:07] LABS: Glucose,Whole Blood 158 mg/dL (70-110)
[2023-01-23] MEDS: INSULIN DETEMIR (LEVEMIR) 100 UNIT/ML SYR SQ SCH (20:12)
[2023-01-23] MEDS: MELATONIN 5 MG TABLET PO SCH (20:12)
[2023-01-23] MEDS: ATORVASTATIN 40 MG TAB PO SCH (20:13)
[2023-01-23] MEDS: clonazePAM 0.5 MG TAB PO SCH (20:13)
== END 2023-01-23 21:57 | DRG 871 ==
LOC: EC 05:11 → 4SSUR 07:00 → 3SCARD 15:56
PROVIDERS: ADMIT Hospitalist; ATTEND Hospitalist
DX: A41.50 Gram-negative sepsis, unspecified (principal); G93.41 Metabolic encephalopathy; J15.6 Pneumonia due to other Gram-negative bacteria; N18.6 End stage renal disease; N17.0 Acute kidney failure with tubular necrosis; F02.84 Dementia in other diseases classified elsewhere, unspecified severity, with anxiety; F02.83 Dementia in other diseases classified elsewhere, unspecified severity, with mood disturbance; F05 Delirium due to known physiological condition; E11.51 Type 2 diabetes mellitus with diabetic peripheral angiopathy without gangrene; E11.42 Type 2 diabetes mellitus with diabetic polyneuropathy; E11.22 Type 2 diabetes mellitus with diabetic chronic kidney disease; Z79.4 Long term (current) use of insulin; Z79.899 Other long term (current) drug therapy; F32.A Depression, unspecified; G47.00 Insomnia, unspecified; G20 Parkinson's disease; I49.5 Sick sinus syndrome; M1A.9XX0 Chronic gout, unspecified, without tophus (tophi); E78.5 Hyperlipidemia, unspecified; I48.0 Paroxysmal atrial fibrillation; G89.4 Chronic pain syndrome; D63.8 Anemia in other chronic diseases classified elsewhere; M89.8X9 Other specified disorders of bone, unspecified site; G40.909 Epilepsy, unspecified, not intractable, without status epilepticus; E11.21 Type 2 diabetes mellitus with diabetic nephropathy; K21.9 Gastro-esophageal reflux disease without esophagitis; I27.20 Pulmonary hypertension, unspecified; I70.0 Atherosclerosis of aorta; K59.00 Constipation, unspecified; Y95 Nosocomial condition; I08.1 Rheumatic disorders of both mitral and tricuspid valves; Z79.01 Long term (current) use of anticoagulants; Z79.82 Long term (current) use of aspirin; Z99.2 Dependence on renal dialysis; Z99.3 Dependence on wheelchair; Z88.5 Allergy status to narcotic agent; Z88.6 Allergy status to analgesic agent
CPT/HCPCS: 36415; 71046; 76770; 80048; 80053; 83540; 83550; 83605; 84484; 85025; 87040; 87324; 93306; 94640; 94760

== ENCOUNTER 2023-05-04 02:29 | Inpatient (IN) | payer MEDICARE, OTHER ==
[2023-05-04] MEDS ORDERED: SODIUM CHLORIDE 0.9% 1,000 ML IV STA (02:50)
--- NOTE | 2023-05-04 02:59 | ED ---
General Adult HPI - General Chief complaint: Urogenital Stated complaint: Uro-Sepsis Time Seen by Provider: 05/04/23 02:31 Source: patient, EMS Mode of arrival: EMS Limitations: no limitations - History of Present Illness Initial comments: Dictation was produced using [employer] dictation software. please excuse any grammatical, word or spelling errors. Chief Complaint: 78-year-old Samoan female transferred from [facility] for urosepsis History of Present Illness: Is an 78-year-old female she is a [facility]. She was found to have signs of lethargy and also fever. She was transferred to [facility] for further evaluation. Patient allegedly a low-grade temperature 100.0. She seemed to be lethargic according to staff. The medic for at least 2 days and progressively she look like she was getting worse. She had labs drawn showing a white count of 29. Patient was seen at urinary tract infection were there is concern that patient was having a significant UTI. Patient is a poor historian. Patient present illness Limited due to limited barrier. Patient denies any pain at this time. The ROS documented in this emergency department record has been reviewed and confirmed by me. Those systems with pertinent positive or negative responses have been documented in the HPI. All other systems are other negative and/or noncontributory. - Related Data Home Medications Medication Instructions Recorded Confirmed Acetaminophen Tab [Tylenol] 650 mg PO Q4H PRN MDD 3000mg 12/29/21 01/19/23 Atorvastatin [Lipitor] 40 mg PO HS@2100 12/29/21 01/19/23 Ferrous Sulfate [Iron (65 MG 325 mg PO BID@0700,1700 12/29/21 01/19/23 Elemental)] INSULIN LISPRO (HumaLOG) [humaLOG] See Protocol SQ AC-TID 12/29/21 01/19/23 Omeprazole 20 mg PO DAILY@0700 12/29/21 01/19/23 Calcium Acetate [PhosLo] 667 mg PO DAILY@1200 01/19/23 01/19/23 Cholecalciferol [Vitamin D3 (25 25 mcg PO DAILY@0700 01/19/23 01/19/23 Mcg = 1000 Iu)] Furosemide [Lasix] 80 mg PO DAILY@0800 01/19/23 01/19/23 Potassium Chloride [Klor-Con M10] 10 meq PO DAILY@0700 01/19/23 01/19/23 Rivaroxaban [Xarelto] 2.5 mg PO DAILY@0700 01/19/23 01/19/23 Sennosides/Docusate Sodium 1 tab PO DAILY@1700 01/19/23 01/19/23 [Senna-S 8.6-50 mg Tablet] Sertraline [Zoloft] 25 mg PO DAILY@0800 01/19/23 01/19/23 Sodium Chloride [Saline Mist] 1 spray EA NOSTRIL Q2H PRN 01/19/23 01/19/23 allopurinoL [Zyloprim] 300 mg PO DAILY@0700 01/19/23 01/19/23 bisacodyL [Dulcolax] 10 mg RECTAL DAILY PRN 01/19/23 01/19/23 calcitrioL [Calcitriol] 0.25 mcg PO MOWEFR@1200 01/19/23 01/19/23 carvediloL [Coreg] 25 mg PO BID@0700,1700 01/19/23 01/19/23 Previous Rx's Medication Instructions Recorded Lactulose [Cephulac] 20 gm PO DAILY PRN ml 01/05/22 Acetaminophen Tab [Tylenol] 500 mg PO Q6HR PRN tab 01/23/23 Gabapentin [Neurontin] 300 mg PO HS #3 01/23/23 HYDROcodone/APAP 5-325MG [[place] 1 tab PO TID@0000,0700,1200 #9 tab 01/23/23 5-325] Insulin Glargine,Hum.rec.anlog 25 units SQ HS #0 01/23/23 [Lantus Solostar Pen] Ipratropium-Albuterol Nebulize 3 ml INHALATION BID each 01/23/23 [Duoneb 0.5 mg-3 mg/3 ml Soln] clonazePAM [KlonoPIN] 0.5 mg PO HS #3 tab 01/23/23 Allergies Allergy/AdvReac Type Severity Reaction Status Date / Time codeine Allergy Unknown Verified 01/19/23 07:26 hydromorphone [From Dilaudid] Allergy Unknown Verified 01/19/23 07:26 acetaminophen AdvReac see comment Verified 01/19/23 07:26 Review of Systems ROS Statement: Those systems with pertinent positive or pertinent negative responses have been documented in the HPI. ROS Other: All systems not noted in ROS Statement are negative. Past Medical History Past Medical History: Atrial Fibrillation, Chest Pain / Angina, Dementia, Diabetes Mellitus, GERD/Reflux, Hyperlipidemia, Hypertension, Musculoskeletal Disorder, Neurologic Disorder, Pneumonia, Renal Disease, Seizure Disorder, V ascular Disorder Additional Past Medical History / Comment(s): IDDM type II, paroxysmal atrial fibrilation, parkinsons, epilepsy, muscle weakness, anemia, hyperkalemia, sick s inus syndrome with pacemaker, PVD, CKD stage 3, gastritis, dysphagia, gout History of Any Multi-Drug Resistant Organisms: None Reported Past Surgical History: Pacemaker Past Anesthesia/Blood Transfusion Reactions: No Reported Reaction Type of Cardiac Device: Permanent Pacemaker Device Placement Date:: unknown Past Psychological History: Depression Smoking Status: Unknown if ever smoked Past Alcohol Use History: Unable to Obtain Past Drug Use History: Unable to Obtain - Past Family History Father Family Medical History: Unable to Obtain Mother Family Medical History: Unable to Obtain General Exam - General Exam Comments Initial Comments: PHYSICAL EXAM: General Impression: Alert and oriented, not in acute distress HEENT: Normocephalic atraumatic, extra-ocular movements intact, pupils equal and reactive to light bilaterally, mucous membranes moist. Cardiovascular: Heart regular rate and rhythm Chest: Able to complete full sentences, no retractions, no tachypnea Abdomen: abdomen soft, non-tender, non-distended, no organomegaly Musculoskeletal: Pulses present and equal in all extremities, no peripheral edema Motor: no focal deficits noted Neurological: CN II-XII grossly intact, no focal motor or sensory deficits noted Skin: Intact with no visualized rashes Psych: Normal affect and mood Limitations: no limitations Course Vital Signs 05/04/23 05/04/23 05/04/23 02:30 02:40 03:06 Temperature 98.3 F Pulse Rate 75 75 76 Respiratory 18 18 18 Rate Blood Pressure 86/33 73/33 106/40 O2 Sat by Pulse 92 L 92 L 100 Oximetry 05/04/23 05/04/23 05/04/23 03:31 03:45 04:15 Temperature Pulse Rate 74 77 69 Respiratory 20 20 18 Rate Blood Pressure 94/54 118/40 104/50 O2 Sat by Pulse 100 99 100 Oximetry - Reevaluation(s) Reevaluation #1: 05/04/23 02:53 Transfer documentation was reviewed in its entirety. Patient was seen there for lethargy. Patient has multiple comorbidities including dementia, insulin- dependent diabetes mellitus, paroxysmal atrial fibrillation. Vital signs reviewed from [facility] found to be within acceptable limits. Urinalysis was nitrite positive however no white blood cells noted. Leukocytosis of 14.1. Hemoglobin of 10. Metabolic panel shows creatinine 3.6, BUN of 62. Patient allegedly has history of sick daily. Troponin level of 0.154. Extensive viral panel is pending negative. Patient administered Zosyn and Ofirmev. Documentation did not suggest the patient received any IV fluids. Reevaluation #2: 05/04/23 02:58 Initial blood pressure was hypertensive however patient put in Trendelenburg position with improvement. this suggests volume depletion. EKG Findings - EKG Comments: EKG Findings:: My EKG interpretation: Ventricular rate 74, sinus rhythm, WA interval 149, QRS 80, QTc 43. No WA prolongation, no QTC prolongation, no ST or T-wave changes noted. Overall, this EKG is unremarkable Medical Decision Making - Medical Decision Making Was pt. sent in by a medical professional or institution (, PA, FUNNEL SETTER, urgent care, hospital, or [place] [facility]...) When possible be specific @ -Sent from outside hospital Did you speak to anyone other than the patient for history (EMS, parent, family, police, friend...)? What history was obtained from this source @ -No Did you review nursing and triage notes (agree or disagree)? Why? @ -I reviewed and agree with nursing and triage notes Were old charts reviewed (outside hosp., previous admission, EMS record, old EKG, old radiological studies, urgent care reports/EKG's, [place] [facility] records)? Report findings @ -No old charts were reviewed Differential Diagnosis (chest pain, altered mental status, abdominal pain women, abdominal pain men, vaginal bleeding, musculoskeletal, weakness, fever, dyspnea, syncope, headache, dizziness, GI bleed, back pain, seizure, CVA, palpatations, mental health)? @ -Differential Altered Mental Status: Hypoglycemia, DKA, hypercapnia, ETOH, overdose, CO poisoning, trauma, myxedema coma, HTN encephalopathy, infection, encephalitis, psychosis, intercranial hemorrhage, hepatic encephalopathy, meningitis, CVA, this is not meant to be an all-inclusive list EKG interpreted by me (3pts min.). @ -See above X-rays interpreted by me (1pt min.). @ -None done CT interpreted by me (1pt min.). @ -None done U/S interpreted by me (1pt. min.). @ -None done What testing was considered but not performed or refused? (CT, X-rays, U/S, labs)? Why? @ -None What meds were considered but not given or refused? Why? @ -None Did you discuss the management of the patient with other professionals (professionals i.e. , PA, FUNNEL SETTER, lab, RT, psych nurse, social work coordinator, aircraft navigator, teacher, equal opportunity officer, welfare case worker)? Give summary @ -Scuffs with Dr. Knowles for admission Was smoking cessation discussed for >3mins.? @ -No Was critical care preformed (if so, how long)? @ -No Were there social determinants of health that impacted care today? How? (Homelessness, low income, unemployed, alcoholism, drug addiction, tra nsportation, low edu. Level, literacy, decrease access to med. care, custodial, rehab)? @ -No Was there de-escalation of care discussed even if they declined (Discuss DNR or withdrawal of care, Hospice)? DNR status @ -No What co-morbidities impacted this encounter? (DM, HTN, Smoking, COPD, CAD, Cancer, CVA, ARF, Chemo, Hep., AIDS, mental health diagnosis, sleep apnea, morbid obesity)? @ -None Was patient admitted / discharged? Hospital course, mention meds given and route, prescriptions, significant lab abnormalities, going to OR and other pertinent info. @ -78 yo Female sent to emergency Department from outside hospital for lethargy. Transferred for possible UTI sepsis. Repeat labs were obtained. Leukocytosis of 21.2 with a hemoglobin of 8.8. Hemoglobin is around her baseline. Sodium 129. Elevated renal markers which appear to be comparable from last admission from January 23. Patient given IV fluids with adequate response of blood pressure. Patient received Zosyn prior to hospital transfer. Patient be admitted for further care. Pathology and infectious disease consulted. Undiagnosed new problem with uncertain prognosis? @ -No Drug Therapy requiring intensive monitoring for toxicity (Heparin, Nitro, Insulin, Cardizem)? @ -No Were any procedures done? @ -No Diagnosis/symptom? Acute, or Chronic, or Acute on Chronic? Uncomplicated (without systemic symptoms) or Complicated (systemic symptoms)? @ -1. Weakness Side effects of treatment? @ -No Exacerbation, Progression, or Severe Exacerbation? @ -No Poses a threat to life or bodily function? How? (Chest pain, USA, SD, pneumonia, PE, COPD, DKA, ARF, appy, cholecystitis, CVA, Diverticulitis, Homicidal, Suicidal, threat to staff... and all critical care pts) @ -yes - Lab Data Result diagrams: 05/04/23 03:08 05/04/23 03:08 Lab Results 05/04/23 05/04/23 05/04/23 Range/Units 03:08 03:08 03:08 WBC 21.2 H (3.8-10.6) k/uL RBC 2.94 L (3.80-5.40) m/uL Hgb 8.8 L (11.4-16.0) gm/dL Hct 28.4 L (34.0-46.0) % MCV 96.7 (80.0-100.0) fL MCH 30.0 (25.0-35.0) pg MCHC 31.0 (31.0-37.0) g/dL RDW 17.1 H (11.5-15.5) % Plt Count 210 (150-450) k/uL MPV 8.6 Neutrophils % 83 % Lymphocytes % 11 % Monocytes % 5 % Eosinophils % 0 % Basophils % 0 % Neutrophils # 17.6 H (1.3-7.7) k/uL Lymphocytes # 2.3 (1.0-4.8) k/uL Monocytes # 1.0 (0-1.0) k/uL Eosinophils # 0.1 (0-0.7) k/uL Basophils # 0.0 (0-0.2) k/uL Hypochromasia Marked Anisocytosis Slight Macrocytosis Slight PT 12.0 (9.0-12.0) sec INR 1.2 H (<1.2) APTT 25.9 (22.0-30.0) sec Sodium 129 L (137-145) mmol/L Potassium 4.9 (3.5-5.1) mmol/L Chloride 100 (98-107) mmol/L Carbon Dioxide 22 (22-30) mmol/L Anion Gap 7 mmol/L BUN 65 H (7-17) mg/dL Creatinine 3.63 H (0.52-1.04) mg/dL Est GFR (CKD-EPI)AfAm 13 (>60 ml/min/1.73 sqM) Est GFR (CKD-EPI)NonAf 11 (>60 ml/min/1.73 sqM) Glucose 121 H (74-99) mg/dL Plasma Lactic Acid Bakari (0.7-2.0) mmol/L Calcium 7.7 L (8.4-10.2) mg/dL Magnesium 1.6 (1.6-2.3) mg/dL Total Bilirubin 0.8 (0.2-1.3) mg/dL AST 28 (14-36) U/L ALT 15 (4-34) U/L Alkaline Phosphatase 89 (38-126) U/L Total Protein 5.3 L (6.3-8.2) g/dL Albumin 2.2 L (3.5-5.0) g/dL 05/04/23 Range/Units 03:08 WBC (3.8-10.6) k/uL RBC (3.80-5.40) m/uL Hgb (11.4-16.0) gm/dL Hct (34.0-46.0) % MCV (80.0-100.0) fL MCH (25.0-35.0) pg MCHC (31.0-37.0) g/dL RDW (11.5-15.5) % Plt Count (150-450) k/uL MPV Neutrophils % % Lymphocytes % % Monocytes % % Eosinophils % % Basophils % % Neutrophils # (1.3-7.7) k/uL Lymphocytes # (1.0-4.8) k/uL Monocytes # (0-1.0) k/uL Eosinophils # (0-0.7) k/uL Basophils # (0-0.2) k/uL Hypochromasia Anisocytosis Macrocytosis PT (9.0-12.0) sec INR (<1.2) APTT (22.0-30.0) sec Sodium (137-145) mmol/L Potassium (3.5-5.1) mmol/L Chloride (98-107) mmol/L Carbon Dioxide (22-30) mmol/L Anion Gap mmol/L BUN (7-17) mg/dL Creatinine (0.52-1.04) mg/dL Est GFR (CKD-EPI)AfAm (>60 ml/min/1.73 sqM) Est GFR (CKD-EPI)NonAf (>60 ml/min/1.73 sqM) Glucose (74-99) mg/dL Plasma Lactic Acid Bakari 1.1 (0.7-2.0) mmol/L Calcium (8.4-10.2) mg/dL Magnesium (1.6-2.3) mg/dL Total Bilirubin (0.2-1.3) mg/dL AST (14-36) U/L ALT (4-34) U/L Alkaline Phosphatase (38-126) U/L Total Protein (6.3-8.2) g/dL Albumin (3.5-5.0) g/dL Disposition Clinical Impression: Weakness Disposition: ADMITTED IP TO THIS HOSP Condition: Fair Referrals: Farhad Flower MD [Primary Care Provider] - 1-2 days Decision Time: 04:37
[2023-05-04 03:39] LABS: ALT 15 U/L (4-34); AST 28 U/L (14-36); African American GFR (CKD) 13 (>60 ml/min/1.73 sqM); Albumin 2.2 g/dL (3.5-5.0); Alkaline Phosphatase 89 U/L (38-126); Anion Gap 7 mmol/L; Blood Urea Nitrogen 65 mg/dL (7-17); Calcium 7.7 mg/dL (8.4-10.2); Carbon Dioxide 22 mmol/L (22-30); Chloride 100 mmol/L (98-107); Glucose 121 mg/dL (74-99); Magnesium 1.6 mg/dL (1.6-2.3); Non-African American GFR(CKD) 11 (>60 ml/min/1.73 sqM); Potassium 4.9 mmol/L (3.5-5.1); Sodium 129 mmol/L (137-145); Total Bilirubin 0.8 mg/dL (0.2-1.3); Total Protein 5.3 g/dL (6.3-8.2)
[2023-05-04 03:41] LABS: Anisocytosis Slight; Basophils % (A) 0 %; Eosinophils # (A) 0.1 k/uL (0-0.7); Eosinophils % (A) 0 %; HCT 28.4 % (34.0-46.0); HGB 8.8 gm/dL (11.4-16.0); Hypochromasia Marked; Lymphocytes # (A) 2.3 k/uL (1.0-4.8); Lymphocytes % (A) 11 %; MCV 96.7 fL (80.0-100.0); Macrocytosis Slight; Mean Platelet Volume 8.6; Monocytes % (A) 5 %; Neutrophils # (A) 17.6 k/uL (1.3-7.7); Neutrophils % (A) 83 %; Platelet Count 210 k/uL (150-450); RBC 2.94 m/uL (3.80-5.40); RDW 17.1 % (11.5-15.5); WBC 21.2 k/uL (3.8-10.6)
[2023-05-04 03:45] LABS: INR 1.2 (<1.2); Partial Thromboplastin Time 25.9 sec (22.0-30.0)
[2023-05-04] MEDS ORDERED: NALOXONE 0.4 MG/ML 1 ML VIAL IV PRN (04:32)
[2023-05-04] MEDS: SODIUM CHLORIDE 0.9% 1,000 ML IV SCH ×2 (05:25→17:59)
[2023-05-04 06:33] LABS: Glucose,Whole Blood 140 mg/dL (70-110)
[2023-05-04 08:20] LABS: African American GFR (CKD) 13 (>60 ml/min/1.73 sqM); Anion Gap 8 mmol/L; Blood Urea Nitrogen 65 mg/dL (7-17); Calcium 7.7 mg/dL (8.4-10.2); Carbon Dioxide 22 mmol/L (22-30); Chloride 102 mmol/L (98-107); Glucose 111 mg/dL (74-99); Non-African American GFR(CKD) 11 (>60 ml/min/1.73 sqM); Potassium 4.9 mmol/L (3.5-5.1); Sodium 132 mmol/L (137-145)
[2023-05-04 09:42] LABS: Appearance,Urine Turbid (Clear); Bacteria,Urine Occasional /hpf; Bilirubin,Urine Negative (Negative); Blood,Urine Moderate (Negative); Color,Urine Yellow; Glucose,Urine (UA) Negative (Negative); Ketones,Urine Negative (Negative); Leukocyte Esterase,Urine Large (Negative); Mucus,Urine Rare /hpf; Nitrite,Urine Negative (Negative); PH, Urine 5.5 (5.0-8.0); Protein,Urine 2+ (Negative); RBC,Urine 39 /hpf (0-5); Specific Gravity,Urine 1.019 (1.001-1.035); Squamous Epithelial Cell,Urine 1 /hpf (0-4); Urobilinogen,Urine <2.0 mg/dL (<2.0); WBC,Urine >182 /hpf (0-5)
--- NOTE | 2023-05-04 10:45 | P.NPCON ---
History of Present Illness - Reason for Consult chronic renal failure - History of Present Illness Patient is an 78-year-old female with chronic kidney disease stage IV with baseline creatinine around 2.6-3 mg/dL. Patient resides at [facility] in [place]. Patient is admitted to the hospital as a transfer from [facility] where she presented with mental status changes and fever. Apparently patient is noted to have UTI and she was transferred to [facility] due to elevated creatinine. Serum creatinine 3.6-3.7 mg/dL with previous creatinine at 3.8 on 01/23/2023. Currently maintained on IV antibiotics. Akhtar catheter was placed at [facility]. It is unclear if patient had urine retention. Blood pressure has been on the lower side with systolic noted in the 90s Currently maintained on IV fluids at 75 mL an hour. Review of Systems As per HPI Past Medical History Past Medical History: Atrial Fibrillation, Chest Pain / Angina, Dementia, Diabetes Mellitus, GERD/Reflux, Hyperlipidemia, Hypertension, Musculoskeletal Disorder, Neurologic Disorder, Pneumonia, Renal Disease, Seizure Disorder, Vascular Disorder Additional Past Medical History / Comment(s): IDDM type II, paroxysmal atrial fibrilation, parkinsons, epilepsy, muscle weakness, anemia, hyperkalemia, sick sinus syndrome with pacemaker, PVD, CKD stage 3, gastritis, dysphagia, gout History of Any Multi-Drug Resistant Organisms: None Reported Past Surgical History: Pacemaker Past Anesthesia/Blood Transfusion Reactions: No Reported Reaction Type of Cardiac Device: Permanent Pacemaker Device Placement Date:: unknown Smoking Status: Never smoker - Past Family History Father Family Medical History: Unable to Obtain Mother Family Medical History: Unable to Obtain Medications and Allergies Home Medications Medication Instructions Recorded Confirmed Type Atorvastatin [Lipitor] 40 mg PO HS@2100 12/29/21 05/04/23 History Ferrous Sulfate [Iron (65 MG 325 mg PO BID@0700,1700 12/29/21 05/04/23 History Elemental)] INSULIN LISPRO (HumaLOG) [humaLOG] See Protocol SQ AC-TID 12/29/21 05/04/23 History Omeprazole 20 mg PO DAILY@0700 12/29/21 05/04/23 History Lactulose [Cephulac] 20 gm PO DAILY PRN ml 01/05/22 05/04/23 Rx Calcium Acetate [PhosLo] 667 mg PO DAILY@1200 01/19/23 05/04/23 History Furosemide [Lasix] 80 mg PO DAILY@0700 01/19/23 05/04/23 History Potassium Chloride [Klor-Con M10] 10 meq PO DAILY@0700 01/19/23 05/04/23 History Rivaroxaban [Xarelto] 2.5 mg PO DAILY@0700 01/19/23 05/04/23 History Sertraline [Zoloft] 25 mg PO DAILY@0700 01/19/23 05/04/23 History Sodium Chloride [Saline Mist] 1 spray EA NOSTRIL Q2H PRN 01/19/23 05/04/23 History allopurinoL [Zyloprim] 300 mg PO DAILY@0700 01/19/23 05/04/23 History bisacodyL [Dulcolax] 10 mg RECTAL DAILY PRN 01/19/23 05/04/23 History calcitrioL [Calcitriol] 0.25 mcg PO MOTUWETHSA@1200 01/19/23 05/04/23 History carvediloL [Coreg] 25 mg PO BID@0700,1700 01/19/23 05/04/23 History Acetaminophen Tab [Tylenol] 500 mg PO Q6HR PRN tab 01/23/23 05/04/23 Rx Gabapentin [Neurontin] 300 mg PO HS #3 01/23/23 05/04/23 Rx Insulin Glargine,Hum.rec.anlog 25 units SQ HS #0 01/23/23 05/04/23 Rx [Lantus Solostar Pen] clonazePAM [KlonoPIN] 0.5 mg PO HS #3 tab 01/23/23 05/04/23 Rx HYDROcodone/APAP 5-325MG [[place] 1 tab PO TID@0700,1200,2100 05/04/23 05/04/23 History 5-325] Ipratropium-Albuterol Nebulize 3 ml INHALATION RT-BID PRN 05/04/23 05/04/23 History [Duoneb 0.5 mg-3 mg/3 ml Soln] Loperamide [Imodium] 2 mg PO QID PRN 05/04/23 05/04/23 History Magnesium Oxide [Mag-Ox] 400 mg PO DAILY@1200 05/04/23 05/04/23 History Ondansetron [Zofran] 4 mg PO Q6H PRN 05/04/23 05/04/23 History Allergies Allergy/AdvReac Type Severity Reaction Status Date / Time codeine Allergy Unknown Verified 05/04/23 07:31 hydromorphone [From Dilaudid] Allergy Unknown Verified 05/04/23 07:31 acetaminophen AdvReac see comment Verified 05/04/23 07:31 Physical Exam Vitals: Vital Signs Temp Pulse Pulse Resp BP BP BP 05/04/23 08:56 97.5 F L 65 20 91/52 05/04/23 06:38 73 18 05/04/23 06:34 97.9 F 73 18 115/65 05/04/23 05:15 73 20 112/43 05/04/23 05:00 74 20 106/43 05/04/23 04:15 69 18 104/50 05/04/23 03:45 77 20 118/40 05/04/23 03:31 74 20 94/54 05/04/23 03:06 76 18 106/40 05/04/23 02:40 75 18 73/33 05/04/23 02:30 98.3 F 75 18 86/33 Pulse Ox 05/04/23 08:56 100 05/04/23 06:38 05/04/23 06:34 2 L 05/04/23 05:15 100 05/04/23 05:00 99 05/04/23 04:15 100 05/04/23 03:45 99 05/04/23 03:31 100 05/04/23 03:06 100 05/04/23 02:40 92 L 05/04/23 02:30 92 L Intake and Output 05/03/23 05/04/23 05/04/23 22:59 06:59 14:59 Other: Voiding Method Indwelling Catheter Indwelling Catheter Weight 90.718 kg 90.718 kg Patient is awake, comfortable, no acute distress She does not communicate much Examination of lower extremity shows chronic skin changes trace edema bilaterally Examination of the heart S1 and S2 Examination of the lungs decreased breath sounds at the bases Abdomen is soft obese nontender [employer] exam grossly intact Results - Lab Results Most recent lab results Calcium 7.7 mg/dL (8.4-10.2) L 05/04/23 06:52 Magnesium 1.6 mg/dL (1.6-2.3) 05/04/23 03:08 05/04/23 03:08 05/04/23 06:52 Assessment and Plan Assessment: 1. Chronic kidney disease NKF stage IV with baseline creatinine around 3 mg/dL and staying at 3.7-3.8 since January 2023. Currently nonoliguric. Patient has an indwelling Akhtar catheter. This was placed at [facility]. Good urine output noted. Possible component of acute kidney injury related to hypotension. 2. UTI based on UA done at [facility]. We will recheck another UA and urine culture. Patient is maintained on antibiotics 3. Mental status changes related to underlying infection 4. Anemia rule out iron deficiency. Component of anemia of chronic disease 5. Hyponatremia, hypovolemic improved with saline Plan: Check UA and urine culture Continue with IV fluids but monitor closely for volume overload Repeat labs in a.m. Hold Coreg as blood pressure is low May resume calcitriol Resume phosphate binders when patient is eating Thank you for this consultation. We will continue to follow the patient with you during her hospitalization
[2023-05-04] MEDS ORDERED: CEFEPIME 2 GM in SODIUM CHLORIDE 0.9% 100 ML IVPB STA (11:21)
[2023-05-04 11:33] LABS: Glucose,Whole Blood 112 mg/dL (70-110)
[2023-05-04] MEDS ORDERED: bisacodyL 10 MG SUPP RECTAL PRN (15:43)
[2023-05-04] MEDS: carvediloL 12.5 MG TAB PO SCH (16:35)
[2023-05-04 16:54] LABS: Glucose,Whole Blood 234 mg/dL (70-110)
[2023-05-04] MEDS: FERROUS SULFATE 325 MG TAB PO SCH (17:06)
[2023-05-04] MEDS ORDERED: DEXTROSE 50% SYRINGE 50 ML IVP PRN ×2 (17:27)
[2023-05-04] MEDS: INSULIN ASPART (NovoLOG) 100 UNIT/ML VIAL SQ SCH ×2 (17:57→21:13)
[2023-05-04 20:16] LABS: Glucose,Whole Blood 155 mg/dL (70-110)
--- NOTE | 2023-05-04 20:45 | P.CONS ---
History of Present Illness - Reason for Consult Consult date: 05/04/23 - History of Present Illness Patient is a 78-year-old female with a past medical history significant for diabetes mellitus hypertension hyperlipidemia atrial fibrillation renal disease patient apparently presented to the [facility] for evaluation of lethargy and fever and this patient apparently a resident of a shelter in [facility], patient apparently has been getting worse over the last 2 days before presentation to the hospital patient becoming more lethargic and less responsive no clear history of any nausea vomiting or diarrhea has been reported patient noticed to have elevated white and did have a positive UA for the patient was transferred to [facility] for further evaluation on presentation to this facility the patient has been afebrile patient is currently breathing comfortably on 2 L of cannula oxygen patient did have moderate blood pressure but not requiring any pressor support patient did have a positive UA with large leukocyte esterase more than 22 WBC white count 21.2 however the left shift and did have a creatinine of 3.70 liver exams are normal patient admitted to the [facility] infectious was consulted for further management of antibiotic therapy most information has been obtained from medical chart patient does have an elevated good historian however when specifically denies any headache no chest pain shortness of breath or cough no vomiting abdominal pain or diarrhea she did have some vague urinary symptoms Past Medical History Past Medical History: Atrial Fibrillation, Chest Pain / Angina, Dementia, Diabetes Mellitus, GERD/Reflux, Hyperlipidemia, Hypertension, Musculoskeletal Disorder, Neurologic Disorder, Pneumonia, Renal Disease, Seizure Disorder, Vascular Disorder Additional Past Medical History / Comment(s): IDDM type II, paroxysmal atrial fibrilation, parkinsons, epilepsy, muscle weakness, anemia, hyperkalemia, sick sinus syndrome with pacemaker, PVD, CKD stage 3, gastritis, dysphagia, gout History of Any Multi-Drug Resistant Organisms: None Reported Past Surgical History: Pacemaker Past Anesthesia/Blood Transfusion Reactions: No Reported Reaction Type of Cardiac Device: Permanent Pacemaker Device Placement Date:: unknown Smoking Status: Never smoker - Past Family History Father Family Medical History: Unable to Obtain Mother Family Medical History: Unable to Obtain Medications and Allergies Home Medications Medication Instructions Recorded Confirmed Type Atorvastatin [Lipitor] 40 mg PO HS@2100 12/29/21 05/04/23 History Ferrous Sulfate [Iron (65 MG 325 mg PO BID@0700,1700 12/29/21 05/04/23 History Elemental)] INSULIN LISPRO (HumaLOG) [humaLOG] See Protocol SQ AC-TID 12/29/21 05/04/23 History Omeprazole 20 mg PO DAILY@0700 12/29/21 05/04/23 History Lactulose [Cephulac] 20 gm PO DAILY PRN ml 01/05/22 05/04/23 Rx Calcium Acetate [PhosLo] 667 mg PO DAILY@1200 01/19/23 05/04/23 History Furosemide [Lasix] 80 mg PO DAILY@0700 01/19/23 05/04/23 History Potassium Chloride [Klor-Con M10] 10 meq PO DAILY@0700 01/19/23 05/04/23 History Rivaroxaban [Xarelto] 2.5 mg PO DAILY@0700 01/19/23 05/04/23 History Sertraline [Zoloft] 25 mg PO DAILY@0700 01/19/23 05/04/23 History Sodium Chloride [Saline Mist] 1 spray EA NOSTRIL Q2H PRN 01/19/23 05/04/23 History allopurinoL [Zyloprim] 300 mg PO DAILY@0700 01/19/23 05/04/23 History bisacodyL [Dulcolax] 10 mg RECTAL DAILY PRN 01/19/23 05/04/23 History calcitrioL [Calcitriol] 0.25 mcg PO MOTUWETHSA@1200 01/19/23 05/04/23 History carvediloL [Coreg] 25 mg PO BID@0700,1700 01/19/23 05/04/23 History Acetaminophen Tab [Tylenol] 500 mg PO Q6HR PRN tab 01/23/23 05/04/23 Rx Gabapentin [Neurontin] 300 mg PO HS #3 01/23/23 05/04/23 Rx Insulin Glargine,Hum.rec.anlog 25 units SQ HS #0 01/23/23 05/04/23 Rx [Lantus Solostar Pen] clonazePAM [KlonoPIN] 0.5 mg PO HS #3 tab 01/23/23 05/04/23 Rx HYDROcodone/APAP 5-325MG [[place] 1 tab PO TID@0700,1200,2100 05/04/23 05/04/23 History 5-325] Ipratropium-Albuterol Nebulize 3 ml INHALATION RT-BID PRN 05/04/23 05/04/23 History [Duoneb 0.5 mg-3 mg/3 ml Soln] Loperamide [Imodium] 2 mg PO QID PRN 05/04/23 05/04/23 History Magnesium Oxide [Mag-Ox] 400 mg PO DAILY@1200 05/04/23 05/04/23 History Ondansetron [Zofran] 4 mg PO Q6H PRN 05/04/23 05/04/23 History Allergies Allergy/AdvReac Type Severity Reaction Status Date / Time codeine Allergy Unknown Verified 05/04/23 07:31 hydromorphone [From Dilaudid] Allergy Unknown Verified 05/04/23 07:31 acetaminophen AdvReac see comment Verified 05/04/23 07:31 Physical Exam Vitals: Vital Signs Temp Pulse Pulse Resp BP BP BP 05/04/23 08:56 97.5 F L 65 20 91/52 05/04/23 06:38 73 18 05/04/23 06:34 97.9 F 73 18 115/65 05/04/23 05:15 73 20 112/43 05/04/23 05:00 74 20 106/43 05/04/23 04:15 69 18 104/50 05/04/23 03:45 77 20 118/40 05/04/23 03:31 74 20 94/54 05/04/23 03:06 76 18 106/40 05/04/23 02:40 75 18 73/33 05/04/23 02:30 98.3 F 75 18 86/33 Pulse Ox 05/04/23 08:56 100 05/04/23 06:38 05/04/23 06:34 2 L 05/04/23 05:15 100 05/04/23 05:00 99 05/04/23 04:15 100 05/04/23 03:45 99 05/04/23 03:31 100 05/04/23 03:06 100 05/04/23 02:40 92 L 05/04/23 02:30 92 L Intake and Output 05/03/23 05/04/23 05/04/23 22:59 06:59 14:59 Other: Voiding Method Indwelling Catheter Indwelling Catheter Weight 90.718 kg 90.718 kg Results CBC & Chem 7: 05/05/23 08:55 05/05/23 08:55 Labs: Abnormal Lab Results - Last 24 Hours (Table) 05/04/23 05/04/23 05/04/23 Range/Units 03:08 03:08 03:08 WBC 21.2 H (3.8-10.6) k/uL RBC 2.94 L (3.80-5.40) m/uL Hgb 8.8 L (11.4-16.0) gm/dL Hct 28.4 L (34.0-46.0) % RDW 17.1 H (11.5-15.5) % Neutrophils # 17.6 H (1.3-7.7) k/uL INR 1.2 H (<1.2) Sodium 129 L (137-145) mmol/L BUN 65 H (7-17) mg/dL Creatinine 3.63 H (0.52-1.04) mg/dL Glucose 121 H (74-99) mg/dL POC Glucose (mg/dL) (70-110) mg/dL Calcium 7.7 L (8.4-10.2) mg/dL Total Protein 5.3 L (6.3-8.2) g/dL Albumin 2.2 L (3.5-5.0) g/dL Urine Appearance (Clear) Urine Protein (Negative) Urine Blood (Negative) Ur Leukocyte Esterase (Negative) Urine RBC (0-5) /hpf Urine WBC (0-5) /hpf Urine WBC Clumps (None) /hpf Urine Bacteria (None) /hpf Urine Mucus (None) /hpf 05/04/23 05/04/23 05/04/23 Range/Units 06:32 06:52 09:24 WBC (3.8-10.6) k/uL RBC (3.80-5.40) m/uL Hgb (11.4-16.0) gm/dL Hct (34.0-46.0) % RDW (11.5-15.5) % Neutrophils # (1.3-7.7) k/uL INR (<1.2) Sodium 132 L (137-145) mmol/L BUN 65 H (7-17) mg/dL Creatinine 3.70 H (0.52-1.04) mg/dL Glucose 111 H (74-99) mg/dL POC Glucose (mg/dL) 140 H (70-110) mg/dL Calcium 7.7 L (8.4-10.2) mg/dL Total Protein (6.3-8.2) g/dL Albumin (3.5-5.0) g/dL Urine Appearance Turbid H (Clear) Urine Protein 2+ H (Negative) Urine Blood Moderate H (Negative) Ur Leukocyte Esterase Large H (Negative) Urine RBC 39 H (0-5) /hpf Urine WBC >182 H (0-5) /hpf Urine WBC Clumps Many H (None) /hpf Urine Bacteria Occasional H (None) /hpf Urine Mucus Rare H (None) /hpf Assessment and Plan Plan: 1patient presented to outside facility with weakness lethargy patient did have elevated white count positive UA concerning for a symptomatic urinary tract infection likely from enteric gram-negative pathogen keeping in mind the patient is a shelter resident we will need to cover for the resistant gram- negative. 2patient with renal insufficiency high risk of nephrotoxicity. 3we will check ultrasound of the kidney bladder area. 4start the patient on cefepime dose adjusted to the kidney function and gentle hydration. We will follow on clinical condition and cultures to further adjust medication if needed Thank you for this consultation we will follow the patient along with you Dictation was produced using [employer] dictation software. please excuse any grammatical, word or spelling errors. Time with Patient: Greater than 30
[2023-05-04] MEDS: GABAPENTIN 300 MG CAP PO SCH (21:10)
[2023-05-04] MEDS: ATORVASTATIN 40 MG TAB PO SCH (21:11)
[2023-05-04] MEDS: HYDROcodone/APAP 5-325MG 1 EACH TAB PO SCH (21:11)
[2023-05-04] MEDS: clonazePAM 0.5 MG TAB PO SCH (21:11)
[2023-05-04] MEDS: INSULIN DETEMIR (LEVEMIR) 100 UNIT/ML SYR SQ SCH (21:13)
[2023-05-05 06:05] LABS: Glucose,Whole Blood 56 mg/dL (70-110)
[2023-05-05 06:23] LABS: Glucose,Whole Blood 82 mg/dL (70-110)
[2023-05-05] MEDS: carvediloL 12.5 MG TAB PO SCH ×2 (06:37→17:16)
[2023-05-05] MEDS: FERROUS SULFATE 325 MG TAB PO SCH ×2 (06:37→17:16)
[2023-05-05] MEDS: INSULIN ASPART (NovoLOG) 100 UNIT/ML VIAL SQ SCH ×4 (06:37→20:17)
[2023-05-05] MEDS: allopurinoL 300 MG TAB PO SCH (06:37)
[2023-05-05] MEDS: PANTOPRAZOLE 40 MG TABLET PO SCH (06:38)
[2023-05-05] MEDS: HYDROcodone/APAP 5-325MG 1 EACH TAB PO SCH ×3 (06:38→20:21)
[2023-05-05] MEDS ORDERED: POTASSIUM CHLORIDE ER 10 MEQ TAB.ER.PRT PO SCH (07:00)
[2023-05-05] MEDS ORDERED: RIVAROXABAN 2.5 MG TABLET PO SCH (07:00)
[2023-05-05] MEDS: SODIUM CHLORIDE 0.9% 1,000 ML IV SCH (08:00)
[2023-05-05] MEDS: CEFEPIME 1 GM in SODIUM CHLORIDE 0.9% 50 ML IVPB SCH (08:40)
--- NOTE | 2023-05-05 09:02 | US ---
EXAMINATION TYPE: US kidneys/renal and bladder DATE OF EXAM: 05/05/2023 COMPARISON: US CLINICAL INDICATION: Female, 78 years old with history of uti and bacteremia; UTI EXAM MEASUREMENTS: Right Kidney: 9.9 x 3.3 x 4.0 cm Left Kidney: 9.5 x 3.8 x 3.6 cm Right Kidney: Cortical thinning, No evidence of hydro Left Kidney: Cortical thinning, No evidence of hydro Bladder: Pt has Akhtar cath in place There is no evidence for hydronephrosis at this point in time. No nephrolithiasis is seen. No jesus s are identified. Cortical thinning of both kidneys. Cortical medullary differentiation is maintained . No perinephric fluid collections. The urinary bladder is not visualized due to decompression from F oley catheter. IMPRESSION: 1. No hydronephrosis or nephrolithiasis. 2. Findings consistent with chronic medical renal disease.
[2023-05-05 10:33] LABS: African American GFR (CKD) 13 (>60 ml/min/1.73 sqM); Anion Gap 8 mmol/L; Blood Urea Nitrogen 67 mg/dL (7-17); Calcium 7.6 mg/dL (8.4-10.2); Carbon Dioxide 20 mmol/L (22-30); Chloride 106 mmol/L (98-107); Glucose 56 mg/dL (74-99); Non-African American GFR(CKD) 11 (>60 ml/min/1.73 sqM); Potassium 4.7 mmol/L (3.5-5.1); Sodium 134 mmol/L (137-145)
[2023-05-05 10:52] LABS: Anisocytosis Slight; Basophils % (A) 0 %; Eosinophils # (A) 0.2 k/uL (0-0.7); Eosinophils % (A) 2 %; HCT 32.1 % (34.0-46.0); HGB 9.4 gm/dL (11.4-16.0); Hypochromasia Marked; Lymphocytes # (A) 1.7 k/uL (1.0-4.8); Lymphocytes % (A) 15 %; MCH 29.7 pg (25.0-35.0); MCHC 29.2 g/dL (31.0-37.0); MCV 101.5 fL (80.0-100.0); Macrocytosis Moderate; Mean Platelet Volume 9.3; Monocytes # (A) 0.7 k/uL (0-1.0); Monocytes % (A) 6 %; Neutrophils # (A) 8.4 k/uL (1.3-7.7); Neutrophils % (A) 73 %; Platelet Count 174 k/uL (150-450); RBC 3.16 m/uL (3.80-5.40); RDW 17.3 % (11.5-15.5); WBC 11.5 k/uL (3.8-10.6)
[2023-05-05] MEDS: MAGNESIUM OXIDE 400 MG TAB PO SCH (11:38)
[2023-05-05 11:46] LABS: Glucose,Whole Blood 75 mg/dL (70-110)
[2023-05-05] MEDS ORDERED: CALCIUM ACETATE 667 MG TAB PO SCH (12:00)
--- NOTE | 2023-05-05 12:05 | P.PN ---
Subjective Patient is seen in follow-up for acute kidney injury on chronic kidney disease. Patient has chronic kidney disease stage IV with baseline creatinine near 2.5. Etiology is diabetic kidney disease and cardiorenal syndrome. Currently resting in bed. Being treated for UTI. Renal function stable. Has Akhtar catheter. Urine output documented as 575 mL dated for today. Vital signs are stable. General: No acute distress. HEENT: Head exam is unremarkable. LUNGS: No audible rhonchi or wheezes. HEART: Rate and Rhythm are regular. ABDOMEN: Nontender. EXTREMITITES: No edema. Objective - Vital Signs Vital signs: Vital Signs Temp 98.1 F 05/05/23 11:53 Pulse 70 05/05/23 11:53 Resp 16 05/05/23 11:53 BP 129/66 05/05/23 11:53 Pulse Ox 100 05/05/23 11:53 FiO2 Intake & Output 05/04/23 05/05/23 05/05/23 18:59 06:59 18:59 Intake Total 1043 Output Total 275 300 Balance 768 -300 Weight 90.718 kg Intake: Intake, IV Titration 925 Amount Cefepime 2 gm In Sodium 100 Chloride 0.9% 100 ml @ 200 mls/hr IVPB ONCE STA Rx#:[id number] Sodium Chloride 0.9% 1, 825 000 ml @ 75 mls/hr IV . [id number] [facility] Rx#:[id number] Oral 118 Output: Urine 275 300 Other: Voiding Method Indwelling Catheter Indwelling Catheter Indwelling Catheter - Labs CBC & Chem 7: 05/05/23 08:55 05/05/23 08:55 Labs: Abnormal Lab Results - Last 24 Hours (Table) 05/04/23 05/04/23 05/05/23 Range/Units 16:52 20:08 06:04 WBC (3.8-10.6) k/uL RBC (3.80-5.40) m/uL Hgb (11.4-16.0) gm/dL Hct (34.0-46.0) % MCV (80.0-100.0) fL MCHC (31.0-37.0) g/dL RDW (11.5-15.5) % Neutrophils # (1.3-7.7) k/uL Sodium (137-145) mmol/L Carbon Dioxide (22-30) mmol/L BUN (7-17) mg/dL Creatinine (0.52-1.04) mg/dL Glucose (74-99) mg/dL POC Glucose (mg/dL) 234 H 155 H 56 L (70-110) mg/dL Calcium (8.4-10.2) mg/dL 05/05/23 05/05/23 Range/Units 08:55 08:55 WBC 11.5 H (3.8-10.6) k/uL RBC 3.16 L (3.80-5.40) m/uL Hgb 9.4 L (11.4-16.0) gm/dL Hct 32.1 L (34.0-46.0) % MCV 101.5 H (80.0-100.0) fL MCHC 29.2 L (31.0-37.0) g/dL RDW 17.3 H (11.5-15.5) % Neutrophils # 8.4 H (1.3-7.7) k/uL Sodium 134 L (137-145) mmol/L Carbon Dioxide 20 L (22-30) mmol/L BUN 67 H (7-17) mg/dL Creatinine 3.73 H (0.52-1.04) mg/dL Glucose 56 L (74-99) mg/dL POC Glucose (mg/dL) (70-110) mg/dL Calcium 7.6 L (8.4-10.2) mg/dL Microbiology - Last 24 Hours (Table) 05/04/23 09:24 Urine Culture - Preliminary Urine,Catheterized Gram Neg Bacilli Assessment and Plan Plan: Assessment: 1. Acute kidney injury secondary to ATN secondary to severe sepsis. Concern for progression of underlying chronic kidney disease. Creatinine stable at 3.73. No hydronephrosis noted on kidney ultrasound. 2. Chronic kidney disease stage IV with baseline creatinine near 2.5 secondary to diabetic kidney disease and cardiorenal syndrome. 3. Severe sepsis secondary to gram-negative UTI on antibiotics. 4. Anemia of chronic kidney disease. Rule out iron deficiency. 5. Metabolic acidosis secondary to acute kidney injury and IV fluids. 6. Hypovolemic hyponatremia. Improving. 7. Chronic kidney disease mineral bone disease maintained on calcitriol and PhosLo. Plan: Maintain IV fluids. Check iron studies. Check phosphorus level. Hold potassium supplementation. Continue to monitor renal function and urine output. Add oral bicarbonate.
[2023-05-05 16:31] LABS: Phosphorus 5.8 mg/dL (2.5-4.5)
[2023-05-05 16:33] LABS: Glucose,Whole Blood 125 mg/dL (70-110)
[2023-05-05] MEDS: SODIUM BICARBONATE TAB 650 MG TAB PO SCH ×2 (17:16→20:22)
--- NOTE | 2023-05-05 19:42 | P.HPIM ---
History of Present Illness H&P Date: 05/04/23 Chief Complaint: Urosepsis 78-year-old female she is a resident at [facility]. She was found to have signs of lethargy and also fever. She was transferred to [facility] for further evaluation. Patient allegedly a low-grade temperature 100.0. She seemed to be lethargic according to staff. The medic for at least 2 days and progressively she look like she was getting worse. She had labs drawn showing a white count of 29. Patient was seen at urinary tract infection were there is concern that patient was having a significant UTI. Patient is a poor historian. Patient present illness Limited due to limited barrier. Patient denies any pain at this time. patient did have a positive UA with large leukocyte esterase more than 22 WBC white count 21.2 however the left shift and did have a creatinine of 3.70 liver exams are normal Review of Systems REVIEW OF SYSTEMS: CONSTITUTIONAL: No fever, no malaise, no fatigue. HEENT: No recent visual problems or hearing problems. Denied any sore throat. CARDIOVASCULAR: No chest pain, orthopnea, PND, no palpitations, no syncope. PULMONARY: No shortness of breath, no cough, no hemoptysis. GASTROINTESTINAL: No diarrhea, no nausea, no vomiting, no abdominal pain. NEUROLOGICAL: No headaches, no weakness, no numbness. HEMATOLOGICAL: Denies any bleeding or petechiae. GENITOURINARY: Denies any burning micturition, frequency, or urgency. MUSCULOSKELETAL/RHEUMATOLOGICAL: Denies any joint pain, swelling, or any muscle pain. ENDOCRINE: Denies any polyuria or polydipsia. The rest of the 14-point review of systems is negative. Past Medical History Past Medical History: Atrial Fibrillation, Chest Pain / Angina, Dementia, Diabetes Mellitus, GERD/Reflux, Hyperlipidemia, Hypertension, Musculoskeletal Disorder, Neurologic Disorder, Pneumonia, Renal Disease, Seizure Disorder, Vascular Disorder Additional Past Medical History / Comment(s): IDDM type II, paroxysmal atrial fibrilation, parkinsons, epilepsy, muscle weakness, anemia, hyperkalemia, sick sinus syndrome with pacemaker, PVD, CKD stage 3, gastritis, dysphagia, gout History of Any Multi-Drug Resistant Organisms: None Reported Past Surgical History: Pacemaker Past Anesthesia/Blood Transfusion Reactions: No Reported Reaction Type of Cardiac Device: Permanent Pacemaker Device Placement Date:: unknown Smoking Status: Never smoker - Past Family History Father Family Medical History: Unable to Obtain Mother Family Medical History: Unable to Obtain Medications and Allergies Home Medications Medication Instructions Recorded Confirmed Type Atorvastatin [Lipitor] 40 mg PO HS@2100 12/29/21 05/04/23 History Ferrous Sulfate [Iron (65 MG 325 mg PO BID@0700,1700 12/29/21 05/04/23 History Elemental)] INSULIN LISPRO (HumaLOG) [humaLOG] See Protocol SQ AC-TID 12/29/21 05/04/23 History Omeprazole 20 mg PO DAILY@0700 12/29/21 05/04/23 History Lactulose [Cephulac] 20 gm PO DAILY PRN ml 01/05/22 05/04/23 Rx Calcium Acetate [PhosLo] 667 mg PO DAILY@1200 01/19/23 05/04/23 History Furosemide [Lasix] 80 mg PO DAILY@0700 01/19/23 05/04/23 History Potassium Chloride [Klor-Con M10] 10 meq PO DAILY@0700 01/19/23 05/04/23 History Rivaroxaban [Xarelto] 2.5 mg PO DAILY@0700 01/19/23 05/04/23 History Sertraline [Zoloft] 25 mg PO DAILY@0700 01/19/23 05/04/23 History Sodium Chloride [Saline Mist] 1 spray EA NOSTRIL Q2H PRN 01/19/23 05/04/23 History allopurinoL [Zyloprim] 300 mg PO DAILY@0700 01/19/23 05/04/23 History bisacodyL [Dulcolax] 10 mg RECTAL DAILY PRN 01/19/23 05/04/23 History calcitrioL [Calcitriol] 0.25 mcg PO MOTUWETHSA@1200 01/19/23 05/04/23 History carvediloL [Coreg] 25 mg PO BID@0700,1700 01/19/23 05/04/23 History Acetaminophen Tab [Tylenol] 500 mg PO Q6HR PRN tab 01/23/23 05/04/23 Rx Gabapentin [Neurontin] 300 mg PO HS #3 01/23/23 05/04/23 Rx Insulin Glargine,Hum.rec.anlog 25 units SQ HS #0 01/23/23 05/04/23 Rx [Lantus Solostar Pen] clonazePAM [KlonoPIN] 0.5 mg PO HS #3 tab 01/23/23 05/04/23 Rx HYDROcodone/APAP 5-325MG [[place] 1 tab PO TID@0700,1200,2100 05/04/23 05/04/23 History 5-325] Ipratropium-Albuterol Nebulize 3 ml INHALATION RT-BID PRN 05/04/23 05/04/23 History [Duoneb 0.5 mg-3 mg/3 ml Soln] Loperamide [Imodium] 2 mg PO QID PRN 05/04/23 05/04/23 History Magnesium Oxide [Mag-Ox] 400 mg PO DAILY@1200 05/04/23 05/04/23 History Ondansetron [Zofran] 4 mg PO Q6H PRN 05/04/23 05/04/23 History Allergies Allergy/AdvReac Type Severity Reaction Status Date / Time codeine Allergy Unknown Verified 05/04/23 07:31 hydromorphone [From Dilaudid] Allergy Unknown Verified 05/04/23 07:31 acetaminophen AdvReac see comment Verified 05/04/23 07:31 Physical Exam Vitals: Vital Signs Temp Pulse Pulse Resp BP BP BP 05/04/23 11:27 97.3 F L 70 18 95/44 05/04/23 08:56 97.5 F L 65 20 91/52 05/04/23 06:38 73 18 05/04/23 06:34 97.9 F 73 18 115/65 05/04/23 05:15 73 20 112/43 05/04/23 05:00 74 20 106/43 05/04/23 04:15 69 18 104/50 05/04/23 03:45 77 20 118/40 05/04/23 03:31 74 20 94/54 05/04/23 03:06 76 18 106/40 05/04/23 02:40 75 18 73/33 05/04/23 02:30 98.3 F 75 18 86/33 Pulse Ox 05/04/23 11:27 100 05/04/23 08:56 100 05/04/23 06:38 05/04/23 06:34 2 L 05/04/23 05:15 100 05/04/23 05:00 99 05/04/23 04:15 100 05/04/23 03:45 99 05/04/23 03:31 100 05/04/23 03:06 100 05/04/23 02:40 92 L 05/04/23 02:30 92 L Intake and Output 05/03/23 05/04/23 05/04/23 22:59 06:59 14:59 Other: Voiding Method Indwelling Catheter Indwelling Catheter Weight 90.718 kg 90.718 kg General Impression: Alert and oriented, not in acute distress HEENT: Normocephalic atraumatic, extra-ocular movements intact, pupils equal and reactive to light bilaterally, mucous membranes moist. Cardiovascular: Heart regular rate and rhythm Chest: Able to complete full sentences, no retractions, no tachypnea Abdomen: abdomen soft, non-tender, non-distended, no organomegaly Musculoskeletal: Pulses present and equal in all extremities, no peripheral edema Motor: no focal deficits noted Neurological: CN II-XII grossly intact, no focal motor or sensory deficits noted Skin: Intact with no visualized rashes Psych: Normal affect and mood Results CBC & Chem 7: 05/05/23 08:55 05/05/23 08:55 Labs: Abnormal Lab Results - Last 24 Hours (Table) 05/04/23 05/04/23 05/04/23 Range/Units 03:08 03:08 03:08 WBC 21.2 H (3.8-10.6) k/uL RBC 2.94 L (3.80-5.40) m/uL Hgb 8.8 L (11.4-16.0) gm/dL Hct 28.4 L (34.0-46.0) % RDW 17.1 H (11.5-15.5) % Neutrophils # 17.6 H (1.3-7.7) k/uL INR 1.2 H (<1.2) Sodium 129 L (137-145) mmol/L BUN 65 H (7-17) mg/dL Creatinine 3.63 H (0.52-1.04) mg/dL Glucose 121 H (74-99) mg/dL POC Glucose (mg/dL) (70-110) mg/dL Calcium 7.7 L (8.4-10.2) mg/dL Total Protein 5.3 L (6.3-8.2) g/dL Albumin 2.2 L (3.5-5.0) g/dL Urine Appearance (Clear) Urine Protein (Negative) Urine Blood (Negative) Ur Leukocyte Esterase (Negative) Urine RBC (0-5) /hpf Urine WBC (0-5) /hpf Urine WBC Clumps (None) /hpf Urine Bacteria (None) /hpf Urine Mucus (None) /hpf 05/04/23 05/04/23 05/04/23 Range/Units 06:32 06:52 09:24 WBC (3.8-10.6) k/uL RBC (3.80-5.40) m/uL Hgb (11.4-16.0) gm/dL Hct (34.0-46.0) % RDW (11.5-15.5) % Neutrophils # (1.3-7.7) k/uL INR (<1.2) Sodium 132 L (137-145) mmol/L BUN 65 H (7-17) mg/dL Creatinine 3.70 H (0.52-1.04) mg/dL Glucose 111 H (74-99) mg/dL POC Glucose (mg/dL) 140 H (70-110) mg/dL Calcium 7.7 L (8.4-10.2) mg/dL Total Protein (6.3-8.2) g/dL Albumin (3.5-5.0) g/dL Urine Appearance Turbid H (Clear) Urine Protein 2+ H (Negative) Urine Blood Moderate H (Negative) Ur Leukocyte Esterase Large H (Negative) Urine RBC 39 H (0-5) /hpf Urine WBC >182 H (0-5) /hpf Urine WBC Clumps Many H (None) /hpf Urine Bacteria Occasional H (None) /hpf Urine Mucus Rare H (None) /hpf 05/04/23 Range/Units 11:31 WBC (3.8-10.6) k/uL RBC (3.80-5.40) m/uL Hgb (11.4-16.0) gm/dL Hct (34.0-46.0) % RDW (11.5-15.5) % Neutrophils # (1.3-7.7) k/uL INR (<1.2) Sodium (137-145) mmol/L BUN (7-17) mg/dL Creatinine (0.52-1.04) mg/dL Glucose (74-99) mg/dL POC Glucose (mg/dL) 112 H (70-110) mg/dL Calcium (8.4-10.2) mg/dL Total Protein (6.3-8.2) g/dL Albumin (3.5-5.0) g/dL Urine Appearance (Clear) Urine Protein (Negative) Urine Blood (Negative) Ur Leukocyte Esterase (Negative) Urine RBC (0-5) /hpf Urine WBC (0-5) /hpf Urine WBC Clumps (None) /hpf Urine Bacteria (None) /hpf Urine Mucus (None) /hpf Thrombosis Risk Factor Assmnt - Choose All That Apply Each Factor Represents 1 point: Medical pt on bed rest Each Risk Factor Represents 3 Points: Age 75 years or older Thrombosis Risk Factor Assessment Total Risk Factor Score: 4 Thrombosis Risk Factor Assessment Level: Moderate Risk Assessment and Plan Assessment: Urosepsis Acute renal failure Hyponatremia Hypertension Hyperlipidemia Diabetes mellitus type 2 Seizure disorder Atrial fibrillation Sick sinus syndrome with history of pacemaker Dementia -- Patient has been admitted to telemetry; UTI likely related to enteric gram- negative pathogens given patient is a [facility] resident; patient remains on IV antibiotics in form of cefepime; urine culture and blood cultures are obtained and pending; white blood count is elevated at 21.2; we will monitor CBC, CRP and pro-calcitonin - Nephrology on board; B UN/creatinine elevated at 65/3.63 upon admission, patient remains on IV fluid hydration with normal saline; we will monitor strict JONATHAN's, daily weights, renal function and electrolytes; avoid nephrotoxins and hypotension; renal ultrasound is ordered - Blood pressure remained soft and Coreg has been placed on hold; we will monitor blood pressure closely; we'll cautiously resume medications once blood pressure improves - Monitor electrolytes closely and adjust IV fluids if hyponatremia persists; patient might need fluid restriction -- Patient takes Coreg for rate control for chronic atrial fibrillation; long- term anticoagulation therapy DVT prophylaxis; SCDs/systemic anticoagulation CODE STATUS; full code
--- NOTE | 2023-05-05 19:44 | P.PN ---
Subjective Progress Note Date: 05/05/23 78-year-old female she is a resident at long term in [facility]. She was found to have signs of lethargy and also fever. She was transferred to [facility] for further evaluation. Patient allegedly a low-grade temperature 100.0. She seemed to be lethargic according to staff. The medic for at least 2 days and progressively she look like she was getting worse. She had labs drawn showing a white count of 29. Patient was seen at urinary tract infection were there is concern that patient was having a significant UTI. Patient is a poor historian. Patient present illness Limited due to limited barrier. Patient denies any pain at this time. patient did have a positive UA with large leukocyte esterase more than 22 WBC white count 21.2 however the left shift and did have a creatinine of 3.70 liver exams are normal Patient remains on IV cefepime per ID recommendations; urine culture growing gram-negative bacilli; final culture and sensitivities pending - Lab review shows improved white blood count of 11.5, sodium is improved at 134; BUN/creatinine remains elevated at 67/3.73; renal ultrasound is completed and is unremarkable; nephrology on board Objective - Vital Signs Vital signs: Vital Signs Temp 98 F 05/05/23 08:00 Pulse 68 05/05/23 08:00 Resp 16 05/05/23 08:00 BP 128/64 05/05/23 08:00 Pulse Ox 97 05/05/23 08:34 FiO2 Intake & Output 05/04/23 05/05/23 05/05/23 18:59 06:59 18:59 Intake Total 1043 Output Total 275 300 Balance 768 -300 Weight 90.718 kg Intake: Intake, IV Titration 925 Amount Cefepime 2 gm In Sodium 100 Chloride 0.9% 100 ml @ 200 mls/hr IVPB ONCE STA Rx#:[id number] Sodium Chloride 0.9% 1, 825 000 ml @ 75 mls/hr IV . [id number] [facility] Rx#:[id number] Oral 118 Output: Urine 275 300 Other: Voiding Method Indwelling Catheter Indwelling Catheter Indwelling Catheter - Exam General Impression: Alert and oriented, not in acute distress HEENT: Normocephalic atraumatic, extra-ocular movements intact, pupils equal and reactive to light bilaterally, mucous membranes moist. Cardiovascular: Heart regular rate and rhythm Chest: Able to complete full sentences, no retractions, no tachypnea Abdomen: abdomen soft, non-tender, non-distended, no organomegaly Musculoskeletal: Pulses present and equal in all extremities, no peripheral edema Motor: no focal deficits noted Neurological: CN II-XII grossly intact, no focal motor or sensory deficits noted Skin: Intact with no visualized rashes Psych: Normal affect and mood - Labs CBC & Chem 7: 05/05/23 08:55 05/05/23 08:55 Labs: Abnormal Lab Results - Last 24 Hours (Table) 05/04/23 05/04/23 05/04/23 Range/Units 11:31 16:52 20:08 POC Glucose (mg/dL) 112 H 234 H 155 H (70-110) mg/dL 05/05/23 Range/Units 06:04 POC Glucose (mg/dL) 56 L (70-110) mg/dL Assessment and Plan Assessment: Urosepsis Acute renal failure Hyponatremia Hypertension Hyperlipidemia Diabetes mellitus type 2 Seizure disorder Atrial fibrillation Sick sinus syndrome with history of pacemaker Dementia -- Patient has been admitted to telemetry; UTI likely related to enteric gram- negative pathogens given patient is a long term resident; patient remains on IV antibiotics in form of cefepime; urine culture and blood cultures are obtained and pending; white blood count is elevated at 21.2; we will monitor CBC, CRP and pro-calcitonin - Nephrology on board; B UN/creatinine elevated at 65/3.63 upon admission, patient remains on IV fluid hydration with normal saline; we will monitor strict JONATHAN's, daily weights, renal function and electrolytes; avoid nephrotoxins and hypotension; renal ultrasound is ordered - Blood pressure remained soft and Coreg has been placed on hold; we will monitor blood pressure closely; we'll cautiously resume medications once blood pressure improves - Monitor electrolytes closely and adjust IV fluids if hyponatremia persists; patient might need fluid restriction -- Patient takes Coreg for rate control for chronic atrial fibrillation; long- term anticoagulation therapy DVT prophylaxis; SCDs/systemic anticoagulation CODE STATUS; full code
[2023-05-05 20:01] LABS: Glucose,Whole Blood 149 mg/dL (70-110)
[2023-05-05] MEDS: GABAPENTIN 300 MG CAP PO SCH (20:21)
[2023-05-05] MEDS: APIXABAN 2.5 MG TABLET PO SCH (20:21)
[2023-05-05] MEDS: clonazePAM 0.5 MG TAB PO SCH (20:21)
[2023-05-05] MEDS: ATORVASTATIN 40 MG TAB PO SCH (20:22)
[2023-05-05] MEDS: INSULIN DETEMIR (LEVEMIR) 100 UNIT/ML SYR SQ SCH ×2 (20:25→20:28)
[2023-05-05 23:54] LABS: % Iron Saturation 19.53 (12.00-45.00)
[2023-05-06 06:06] LABS: Glucose,Whole Blood 123 mg/dL (70-110)
[2023-05-06] MEDS: FERROUS SULFATE 325 MG TAB PO SCH ×2 (06:27→17:00)
[2023-05-06] MEDS: HYDROcodone/APAP 5-325MG 1 EACH TAB PO SCH ×3 (06:27→21:36)
[2023-05-06] MEDS: carvediloL 12.5 MG TAB PO SCH ×2 (06:27→17:00)
[2023-05-06] MEDS: allopurinoL 300 MG TAB PO SCH (06:27)
[2023-05-06] MEDS: PANTOPRAZOLE 40 MG TABLET PO SCH (06:27)
[2023-05-06] MEDS: INSULIN ASPART (NovoLOG) 100 UNIT/ML VIAL SQ SCH ×4 (06:34→21:30)
--- NOTE | 2023-05-06 09:27 | P.PN ---
Subjective Progress Note Date: 05/05/23 Principal diagnosis: UTI and Bacteremia Patient is a 78-year-old female with a past medical history significant for diabetes mellitus hypertension hyperlipidemia atrial fibrillation renal disease patient apparently presented to the [facility] for evaluation of lethargy and fever and this patient apparently a resident of a senior living in [facility], patient has been diagnosed with a urinary tract infection blood culture drawn at the outside facility came back positive with gram-positive cocci in chain. On today's visit that is 05/05/2023 patient is afebrile patient is breathing comfortably on 2 L nasal cannula oxygen denies any chest pain shortness of breath or cough no nausea vomiting no abdominal pain no diarrhea. Patient white count is down to 11.5 creatinine 3.73 urination gram-negative bacilli. Objective - Vital Signs Vital signs: Vital Signs Temp 98.1 F 05/05/23 11:53 Pulse 70 05/05/23 11:53 Resp 16 05/05/23 11:53 BP 129/66 05/05/23 11:53 Pulse Ox 100 05/05/23 11:53 FiO2 Intake & Output 05/04/23 05/05/23 05/05/23 18:59 06:59 18:59 Intake Total 1043 Output Total 275 300 Balance 768 -300 Weight 90.718 kg Intake: Intake, IV Titration 925 Amount Cefepime 2 gm In Sodium 100 Chloride 0.9% 100 ml @ 200 mls/hr IVPB ONCE STA Rx#:[id number] Sodium Chloride 0.9% 1, 825 000 ml @ 75 mls/hr IV . [id number] [facility] Rx#:[id number] Oral 118 Output: Urine 275 300 Other: Voiding Method Indwelling Catheter Indwelling Catheter Indwelling Catheter - Exam GENERAL DESCRIPTION: Elderly female lying in bed in no distress RESPIRATORY SYSTEM: Unlabored breathing , decreased breath sounds at bases HEART: S1 S2 regular rate and rhythm ,no loud murmurs ABDOMEN: Soft , no tenderness EXTREMITIES: No edema feet - Labs CBC & Chem 7: 05/05/23 08:55 05/05/23 08:55 Labs: Abnormal Lab Results - Last 24 Hours (Table) 05/04/23 05/04/23 05/05/23 Range/Units 16:52 20:08 06:04 WBC (3.8-10.6) k/uL RBC (3.80-5.40) m/uL Hgb (11.4-16.0) gm/dL Hct (34.0-46.0) % MCV (80.0-100.0) fL MCHC (31.0-37.0) g/dL RDW (11.5-15.5) % Neutrophils # (1.3-7.7) k/uL Sodium (137-145) mmol/L Carbon Dioxide (22-30) mmol/L BUN (7-17) mg/dL Creatinine (0.52-1.04) mg/dL Glucose (74-99) mg/dL POC Glucose (mg/dL) 234 H 155 H 56 L (70-110) mg/dL Calcium (8.4-10.2) mg/dL 05/05/23 05/05/23 Range/Units 08:55 08:55 WBC 11.5 H (3.8-10.6) k/uL RBC 3.16 L (3.80-5.40) m/uL Hgb 9.4 L (11.4-16.0) gm/dL Hct 32.1 L (34.0-46.0) % MCV 101.5 H (80.0-100.0) fL MCHC 29.2 L (31.0-37.0) g/dL RDW 17.3 H (11.5-15.5) % Neutrophils # 8.4 H (1.3-7.7) k/uL Sodium 134 L (137-145) mmol/L Carbon Dioxide 20 L (22-30) mmol/L BUN 67 H (7-17) mg/dL Creatinine 3.73 H (0.52-1.04) mg/dL Glucose 56 L (74-99) mg/dL POC Glucose (mg/dL) (70-110) mg/dL Calcium 7.6 L (8.4-10.2) mg/dL Microbiology - Last 24 Hours (Table) 05/04/23 09:24 Urine Culture - Preliminary Urine,Catheterized Gram Neg Bacilli Assessment and Plan (1) UTI (urinary tract infection) Current Visit: Yes Status: Acute Code(s): N39.0 - URINARY TRACT INFECTION, SITE NOT SPECIFIED SNOMED Code(s): 19080843 (2) Bacteremia Current Visit: Yes Status: Acute Code(s): R78.81 - BACTEREMIA SNOMED Code(s): 7538180 (3) Leukocytosis Current Visit: No Status: Acute Code(s): D72.829 - ELEVATED WHITE BLOOD CELL COUNT, UNSPECIFIED SNOMED Code(s): 312890870 Plan: 1patient presented to outside facility with weakness lethargy patient did have elevated white count positive UA concerning for a symptomatic urinary tract infection likely from enteric gram-negative pathogen keeping in mind the patient is a senior living resident we will need to cover for the resistant gram- negative. 2patient with renal insufficiency high risk of nephrotoxicity. 3patient with positive blood culture at the outside facility gram-positive cocci in chain questionably contaminant blood cultures will be repeated to document clearance to hold on adding vancomycin as the patient white count is trending down and the patient did have renal insufficiency. 4patient to continue cefepime while awaiting further urine culture to finalize and monitor clinical course closely Dictation was produced using [email or web address] dictation software. please excuse any grammatical, word or spelling errors.
[2023-05-06] MEDS: APIXABAN 2.5 MG TABLET PO SCH ×2 (09:38→21:36)
[2023-05-06] MEDS: SODIUM BICARBONATE TAB 650 MG TAB PO SCH ×2 (09:38→21:36)
[2023-05-06] MEDS: CEFEPIME 1 GM in SODIUM CHLORIDE 0.9% 50 ML IVPB SCH (09:38)
[2023-05-06] MEDS: SODIUM CHLORIDE 0.9% 1,000 ML IV SCH ×2 (10:01→14:18)
--- NOTE | 2023-05-06 10:57 | P.PN ---
Subjective Patient is seen in follow-up for acute kidney injury on chronic kidney disease. Patient has chronic kidney disease stage IV with baseline creatinine near 2.5. Etiology is diabetic kidney disease and cardiorenal syndrome. Currently resting in bed. Being treated for UTI. Renal function stable as of yesterday. Has Akhtar catheter. Urine output documented as 650 mL dated for today. Oral intake fair. Vital signs are stable. General: No acute distress. HEENT: Head exam is unremarkable. LUNGS: No audible rhonchi or wheezes. HEART: Rate and Rhythm are regular. ABDOMEN: Nontender. EXTREMITITES: No edema. Objective - Vital Signs Vital signs: Vital Signs Temp 98.3 F 05/06/23 08:13 Pulse 80 05/06/23 08:13 Resp 16 05/06/23 08:13 BP 125/68 05/06/23 08:13 Pulse Ox 97 05/06/23 08:13 FiO2 Intake & Output 05/05/23 05/06/23 05/06/23 18:59 06:59 18:59 Intake Total 898 Output Total 200 450 Balance 698 -450 Intake: Oral 898 Output: Urine 200 450 Other: Voiding Method Indwelling Catheter Indwelling Catheter Indwelling Catheter - Labs CBC & Chem 7: 05/05/23 08:55 05/05/23 08:55 Labs: Abnormal Lab Results - Last 24 Hours (Table) 05/05/23 05/05/23 05/05/23 Range/Units 08:55 08:55 10:20 WBC 11.5 H (3.8-10.6) k/uL RBC 3.16 L (3.80-5.40) m/uL Hgb 9.4 L (11.4-16.0) gm/dL Hct 32.1 L (34.0-46.0) % MCV 101.5 H (80.0-100.0) fL MCHC 29.2 L (31.0-37.0) g/dL RDW 17.3 H (11.5-15.5) % Neutrophils # 8.4 H (1.3-7.7) k/uL POC Glucose (mg/dL) (70-110) mg/dL Hemoglobin A1c 7.4 H (<=6.0) % Phosphorus 5.8 H (2.5-4.5) mg/dL Iron 33 L (50-170) UG/DL TIBC 169 L (228-460) UG/DL Transferrin 121.0 L (204.0-354.0) mg/dL Ferritin 560.0 H (10.0-291.0) ng/mL 05/05/23 05/05/23 05/06/23 Range/Units 16:29 19:59 06:03 WBC (3.8-10.6) k/uL RBC (3.80-5.40) m/uL Hgb (11.4-16.0) gm/dL Hct (34.0-46.0) % MCV (80.0-100.0) fL MCHC (31.0-37.0) g/dL RDW (11.5-15.5) % Neutrophils # (1.3-7.7) k/uL POC Glucose (mg/dL) 125 H 149 H 123 H (70-110) mg/dL Hemoglobin A1c (<=6.0) % Phosphorus (2.5-4.5) mg/dL Iron (50-170) UG/DL TIBC (228-460) UG/DL Transferrin (204.0-354.0) mg/dL Ferritin (10.0-291.0) ng/mL Microbiology - Last 24 Hours (Table) 05/04/23 09:24 Urine Culture - Preliminary Urine,Catheterized Gram Neg Bacilli Assessment and Plan Plan: Assessment: 1. Acute kidney injury secondary to ATN secondary to severe sepsis. Concern for progression of underlying chronic kidney disease. Creatinine stable at 3.73 yesterday. No hydronephrosis noted on kidney ultrasound. 2. Chronic kidney disease stage IV with baseline creatinine near 2.5 secondary to diabetic kidney disease and cardiorenal syndrome. 3. Severe sepsis secondary to gram-negative UTI on antibiotics. 4. Anemia of chronic kidney disease. Iron deficiency noted. 5. Metabolic acidosis secondary to acute kidney injury and IV fluids. On oral bicarbonate. 6. Hypovolemic hyponatremia. Improving. 7. Chronic kidney disease mineral bone disease maintained on calcitriol and PhosLo. Phosphorus 5.8 dated 05/05/2023. Plan: Maintain IV fluids. Add IV iron. Increase PhosLo to 3 times a day with meals. Continue to monitor renal function and urine output. Morning labs pending.
[2023-05-06 11:52] LABS: Glucose,Whole Blood 116 mg/dL (70-110)
[2023-05-06 12:09] LABS: African American GFR (CKD) 14 (>60 ml/min/1.73 sqM); Anion Gap 9 mmol/L; Blood Urea Nitrogen 63 mg/dL (7-17); Calcium 7.9 mg/dL (8.4-10.2); Carbon Dioxide 16 mmol/L (22-30); Chloride 107 mmol/L (98-107); Glucose 109 mg/dL (74-99); Magnesium 1.6 mg/dL (1.6-2.3); Non-African American GFR(CKD) 12 (>60 ml/min/1.73 sqM); Potassium 4.8 mmol/L (3.5-5.1); Sodium 132 mmol/L (137-145)
[2023-05-06] MEDS: MAGNESIUM OXIDE 400 MG TAB PO SCH ×2 (12:16→21:36)
[2023-05-06] MEDS: CALCIUM ACETATE 667 MG TAB PO SCH ×2 (12:16→17:00)
[2023-05-06] MEDS: SODIUM FERRIC GLUCONAT-SUCROSE 125 MG in SODIUM CHLORIDE 0.9% 100 ML IVPB SCH (12:17)
[2023-05-06 16:27] LABS: Glucose,Whole Blood 124 mg/dL (70-110)
--- NOTE | 2023-05-06 16:43 | P.PN ---
Subjective Progress Note Date: 05/06/23 78-year-old female she is a resident at [facility]. She was found to have signs of lethargy and also fever. She was transferred to [facility] for further evaluation. Patient allegedly a low-grade temperature 100.0. She seemed to be lethargic according to staff. The medic for at least 2 days and progressively she look like she was getting worse. She had labs drawn showing a white count of 29. Patient was seen at urinary tract infection were there is concern that patient was having a significant UTI. Patient is a poor historian. Patient present illness Limited due to limited barrier. Patient denies any pain at this time. patient did have a positive UA with large leukocyte esterase more than 22 WBC white count 21.2 however the left shift and did have a creatinine of 3.70 liver exams are normal Patient remains on IV cefepime per ID recommendations; urine culture growing gram-negative bacilli; final culture and sensitivities pending - Lab review shows improved white blood count of 11.5, sodium is improved at 134; BUN/creatinine remains elevated at 67/3.73; renal ultrasound is completed and is unremarkable; nephrology on board 05/06/2023 patient is seen and evaluated in room at bedside; remains afebrile patient is breathing comfortably on 2 L nasal cannula oxygen denies any chest pain shortness of breath or cough no nausea vomiting no abdominal pain no diarrhea. Patient white count is down to 11.5 creatinine down to 3.45 from 3.73 yesterday; preliminary urine culture reveals gram-negative bacilli. patient presented to outside facility with weakness lethargy patient did have elevated white count positive UA concerning for a symptomatic urinary tract infection likely from enteric gram-negative pathogen keeping in mind the patient is a [facility] resident we will need to cover for the resistant gram- negative. patient with renal insufficiency high risk of nephrotoxicity. patient with positive blood culture at the outside facility gram-positive cocci in chain questionably contaminant blood cultures will be repeated to document clearance to hold on adding vancomycin as the patient white count is trending down and the patient did have renal insufficiency. patient to continue cefepime while awaiting further urine culture to finalize and monitor clinical course closely Objective - Vital Signs Vital signs: Vital Signs Temp 98.3 F 05/06/23 08:13 Pulse 74 09/03/23 12:54 Resp 18 05/06/23 12:54 BP 124/66 05/06/23 12:54 Pulse Ox 96 05/06/23 12:54 FiO2 Intake & Output 05/05/23 05/06/23 05/06/23 18:59 06:59 18:59 Intake Total 898 Output Total 200 450 Balance 698 -450 Intake: Oral 898 Output: Urine 200 450 Other: Voiding Method Indwelling Catheter Indwelling Catheter Indwelling Catheter - Exam General Impression: Alert and oriented, not in acute distress HEENT: Normocephalic atraumatic, extra-ocular movements intact, pupils equal and reactive to light bilaterally, mucous membranes moist. Cardiovascular: Heart regular rate and rhythm Chest: Able to complete full sentences, no retractions, no tachypnea Abdomen: abdomen soft, non-tender, non-distended, no organomegaly Musculoskeletal: Pulses present and equal in all extremities, no peripheral edema Motor: no focal deficits noted Neurological: CN II-XII grossly intact, no focal motor or sensory deficits noted Skin: Intact with no visualized rashes Psych: Normal affect and mood - Labs CBC & Chem 7: 05/05/23 08:55 05/06/23 10:30 Labs: Abnormal Lab Results - Last 24 Hours (Table) 05/05/23 05/05/23 05/05/23 Range/Units 10:20 16:29 19:59 Sodium (137-145) mmol/L Carbon Dioxide (22-30) mmol/L BUN (7-17) mg/dL Creatinine (0.52-1.04) mg/dL Glucose (74-99) mg/dL POC Glucose (mg/dL) 125 H 149 H (70-110) mg/dL Calcium (8.4-10.2) mg/dL Phosphorus 5.8 H (2.5-4.5) mg/dL Iron 33 L (50-170) UG/DL TIBC 169 L (228-460) UG/DL Transferrin 121.0 L (204.0-354.0) mg/dL Ferritin 560.0 H (10.0-291.0) ng/mL 05/06/23 05/06/23 05/06/23 Range/Units 06:03 10:30 11:51 Sodium 132 L (137-145) mmol/L Carbon Dioxide 16 L (22-30) mmol/L BUN 63 H (7-17) mg/dL Creatinine 3.45 H (0.52-1.04) mg/dL Glucose 109 H (74-99) mg/dL POC Glucose (mg/dL) 123 H 116 H (70-110) mg/dL Calcium 7.9 L (8.4-10.2) mg/dL Phosphorus (2.5-4.5) mg/dL Iron (50-170) UG/DL TIBC (228-460) UG/DL Transferrin (204.0-354.0) mg/dL Ferritin (10.0-291.0) ng/mL Microbiology - Last 24 Hours (Table) 05/04/23 09:24 Urine Culture - Final Urine,Catheterized Escherichia coli Assessment and Plan Assessment: Urosepsis Acute renal failure Hyponatremia Hypertension Hyperlipidemia Diabetes mellitus type 2 Seizure disorder Atrial fibrillation Sick sinus syndrome with history of pacemaker Dementia -- Patient has been admitted to telemetry; UTI likely related to enteric gram- negative pathogens given patient is a [facility] resident; patient remains on IV antibiotics in form of cefepime; urine culture and blood cultures are obtained and pending; white blood count is elevated at 21.2; we will monitor CBC, CRP and pro-calcitonin - Nephrology on board; B UN/creatinine elevated at 65/3.63 upon admission, patient remains on IV fluid hydration with normal saline; we will monitor strict JONATHAN's, daily weights, renal function and electrolytes; avoid nephrotoxins and hypotension; renal ultrasound is ordered - Blood pressure remained soft and Coreg has been placed on hold; we will monitor blood pressure closely; we'll cautiously resume medications once blood pressure improves - Monitor electrolytes closely and adjust IV fluids if hyponatremia persists; patient might need fluid restriction -- Patient takes Coreg for rate control for chronic atrial fibrillation; long- term anticoagulation therapy DVT prophylaxis; SCDs/systemic anticoagulation CODE STATUS; full code
--- NOTE | 2023-05-06 16:49 | P.PN ---
Subjective Progress Note Date: 05/06/23 Principal diagnosis: UTI and Bacteremia Patient is a 78-year-old female with a past medical history significant for diabetes mellitus hypertension hyperlipidemia atrial fibrillation renal disease patient apparently presented to the [place] ER for evaluation of lethargy and fever and this patient apparently a resident of a retirement in [facility], patient has been diagnosed with a urinary tract infection blood culture drawn at the outside facility came back positive with gram-positive cocci in chain. On today's visit that is 05/06/2023 patient remains to be afebrile patient is breathing comfortably on 2 L nasal cannula oxygen , the patient denies any chest pain shortness of breath or cough no nausea vomiting no abdominal pain no diarrhea. Patient white count is down to 11.5 as of yesterday no CBC done today creatinine is down to 3.45 urine did grow E. coli that is sensitive pathogen Objective - Vital Signs Vital signs: Vital Signs Temp 98.3 F 05/06/23 08:13 Pulse 74 05/06/23 12:54 Resp 18 05/06/23 12:54 BP 124/66 05/06/23 12:54 Pulse Ox 96 05/06/23 12:54 FiO2 Intake & Output 05/05/23 05/06/23 05/06/23 18:59 06:59 18:59 Intake Total 898 Output Total 200 450 250 Balance 698 -450 -250 Intake: Oral 898 Output: Urine 200 450 250 Other: Voiding Method Indwelling Catheter Indwelling Catheter Indwelling Catheter - Exam GENERAL DESCRIPTION: Elderly female lying in bed in no distress RESPIRATORY SYSTEM: Unlabored breathing , decreased breath sounds at bases HEART: S1 S2 regular rate and rhythm ,no loud murmurs ABDOMEN: Soft , no tenderness EXTREMITIES: No edema feet - Labs CBC & Chem 7: 05/05/23 08:55 05/06/23 10:30 Labs: Abnormal Lab Results - Last 24 Hours (Table) 05/05/23 05/05/23 05/05/23 Range/Units 10:20 16:29 19:59 Sodium (137-145) mmol/L Carbon Dioxide (22-30) mmol/L BUN (7-17) mg/dL Creatinine (0.52-1.04) mg/dL Glucose (74-99) mg/dL POC Glucose (mg/dL) 125 H 149 H (70-110) mg/dL Calcium (8.4-10.2) mg/dL Phosphorus 5.8 H (2.5-4.5) mg/dL Iron 33 L (50-170) UG/DL TIBC 169 L (228-460) UG/DL Transferrin 121.0 L (204.0-354.0) mg/dL Ferritin 560.0 H (10.0-291.0) ng/mL 05/06/23 05/06/23 05/06/23 Range/Units 06:03 10:30 11:51 Sodium 132 L (137-145) mmol/L Carbon Dioxide 16 L (22-30) mmol/L BUN 63 H (7-17) mg/dL Creatinine 3.45 H (0.52-1.04) mg/dL Glucose 109 H (74-99) mg/dL POC Glucose (mg/dL) 123 H 116 H (70-110) mg/dL Calcium 7.9 L (8.4-10.2) mg/dL Phosphorus (2.5-4.5) mg/dL Iron (50-170) UG/DL TIBC (228-460) UG/DL Transferrin (204.0-354.0) mg/dL Ferritin (10.0-291.0) ng/mL Microbiology - Last 24 Hours (Table) 05/04/23 09:24 Urine Culture - Final Urine,Catheterized Escherichia coli Assessment and Plan (1) UTI (urinary tract infection) Current Visit: Yes Status: Acute Code(s): N39.0 - URINARY TRACT INFECTION, SITE NOT SPECIFIED SNOMED Code(s): 04467753 (2) Bacteremia Current Visit: Yes Status: Acute Code(s): R78.81 - BACTEREMIA SNOMED Code(s): 0524064 (3) Leukocytosis Current Visit: No Status: Acute Code(s): D72.829 - ELEVATED WHITE BLOOD CELL COUNT, UNSPECIFIED SNOMED Code(s): 536118022 Plan: 1patient presented to outside facility with weakness lethargy patient did have elevated white count positive UA concerning for a symptomatic urinary tract infection likely from enteric gram-negative pathogen keeping in mind the patient is a retirement resident we will need to cover for the resistant gram- negative. 2patient with renal insufficiency high risk of nephrotoxicity. 3patient with positive blood culture at the outside facility gram-positive cocci in chain questionably contaminant blood cultures has been repeated here a nd currently pending, no need for vancomycin 4-urine has been finalized with E. coli that is sensitive pathogen we will discontinue cefepime start the patient on Rocephin and monitor clinical course closely Dictation was produced using [employer] dictation software. please excuse any grammatical, word or spelling errors. Time with Patient: Less than 30
[2023-05-06] MEDS: DEXTROSE 5% IN WATER 1,000 ML with SODIUM BICARB (1 MEQ/ML) 150 ML IV SCH (17:00)
[2023-05-06 20:05] LABS: Glucose,Whole Blood 159 mg/dL (70-110)
[2023-05-06] MEDS: INSULIN DETEMIR (LEVEMIR) 100 UNIT/ML SYR SQ SCH (21:36)
[2023-05-06] MEDS: ATORVASTATIN 40 MG TAB PO SCH (21:36)
[2023-05-06] MEDS: GABAPENTIN 300 MG CAP PO SCH (21:36)
[2023-05-06] MEDS: clonazePAM 0.5 MG TAB PO SCH (21:36)
[2023-05-06] MEDS: ACETAMINOPHEN TAB 325 MG TAB PO PRN (23:30)
[2023-05-07 06:13] LABS: Glucose,Whole Blood 149 mg/dL (70-110)
[2023-05-07] MEDS: INSULIN ASPART (NovoLOG) 100 UNIT/ML VIAL SQ SCH ×4 (06:53→21:49)
[2023-05-07] MEDS: APIXABAN 2.5 MG TABLET PO SCH ×2 (08:30→21:49)
[2023-05-07] MEDS: carvediloL 12.5 MG TAB PO SCH ×2 (08:30→17:15)
[2023-05-07] MEDS: HYDROcodone/APAP 5-325MG 1 EACH TAB PO SCH ×3 (08:30→21:48)
[2023-05-07] MEDS: FERROUS SULFATE 325 MG TAB PO SCH ×2 (08:30→17:15)
[2023-05-07] MEDS: MAGNESIUM OXIDE 400 MG TAB PO SCH ×2 (08:30→21:49)
[2023-05-07] MEDS: PANTOPRAZOLE 40 MG TABLET PO SCH (08:30)
[2023-05-07] MEDS: CALCIUM ACETATE 667 MG TAB PO SCH ×3 (08:30→17:14)
[2023-05-07] MEDS: allopurinoL 300 MG TAB PO SCH (08:30)
[2023-05-07] MEDS: SODIUM BICARBONATE TAB 650 MG TAB PO SCH ×2 (08:30→21:48)
[2023-05-07] MEDS: DEXTROSE 5% IN WATER 1,000 ML with SODIUM BICARB (1 MEQ/ML) 150 ML IV SCH (09:03)
[2023-05-07] MEDS: SODIUM FERRIC GLUCONAT-SUCROSE 125 MG in SODIUM CHLORIDE 0.9% 100 ML IVPB SCH (09:04)
[2023-05-07 10:01] LABS: African American GFR (CKD) 14 (>60 ml/min/1.73 sqM); Anion Gap 8 mmol/L; Blood Urea Nitrogen 62 mg/dL (7-17); Calcium 8.1 mg/dL (8.4-10.2); Carbon Dioxide 22 mmol/L (22-30); Chloride 103 mmol/L (98-107); Glucose 113 mg/dL (74-99); Magnesium 1.7 mg/dL (1.6-2.3); Non-African American GFR(CKD) 12 (>60 ml/min/1.73 sqM); Potassium 4.5 mmol/L (3.5-5.1); Sodium 133 mmol/L (137-145)
[2023-05-07 10:13] LABS: Anisocytosis Slight; Basophils % (A) 0 %; Eosinophils # (A) 0.2 k/uL (0-0.7); Eosinophils % (A) 2 %; HCT 31.1 % (34.0-46.0); HGB 9.4 gm/dL (11.4-16.0); Hypochromasia Marked; Lymphocytes # (A) 1.8 k/uL (1.0-4.8); Lymphocytes % (A) 13 %; MCH 29.8 pg (25.0-35.0); MCHC 30.1 g/dL (31.0-37.0); MCV 98.9 fL (80.0-100.0); Macrocytosis Slight; Mean Platelet Volume 8.8; Monocytes # (A) 0.8 k/uL (0-1.0); Monocytes % (A) 6 %; Neutrophils # (A) 10.7 k/uL (1.3-7.7); Neutrophils % (A) 78 %; Platelet Count 195 k/uL (150-450); RBC 3.15 m/uL (3.80-5.40); WBC 13.8 k/uL (3.8-10.6)
--- NOTE | 2023-05-07 10:43 | P.PN ---
Subjective Patient is seen in follow-up for acute kidney injury on chronic kidney disease. Patient has chronic kidney disease stage IV with baseline creatinine near 2.5. Etiology is diabetic kidney disease and cardiorenal syndrome. Currently resting in bed. Being treated for UTI. Renal function stable. Has Akhtar catheter. Nonoliguric. Oral intake fair. On bicarb drip. Acidosis improved. Vital signs are stable. General: No acute distress. HEENT: Head exam is unremarkable. LUNGS: No audible rhonchi or wheezes. HEART: Rate and Rhythm are regular. ABDOMEN: Nontender. EXTREMITITES: No edema. Objective - Vital Signs Vital signs: Vital Signs Temp 98.0 F 05/07/23 08:22 Pulse 80 05/07/23 08:22 Resp 16 05/07/23 08:22 BP 126/67 05/07/23 08:22 Pulse Ox 98 05/07/23 08:22 FiO2 Intake & Output 05/06/23 05/07/23 05/07/23 18:59 06:59 18:59 Intake Total 180 Output Total 250 500 Balance -250 -500 180 Intake: Oral 180 Output: Urine 250 500 Other: Voiding Method Indwelling Catheter Indwelling Catheter Indwelling Catheter - Labs CBC & Chem 7: 05/07/23 08:21 05/07/23 08:21 Labs: Abnormal Lab Results - Last 24 Hours (Table) 05/06/23 05/06/23 05/06/23 Range/Units 10:30 11:51 16:25 WBC (3.8-10.6) k/uL RBC (3.80-5.40) m/uL Hgb (11.4-16.0) gm/dL Hct (34.0-46.0) % MCHC (31.0-37.0) g/dL RDW (11.5-15.5) % Sodium 132 L (137-145) mmol/L Carbon Dioxide 16 L (22-30) mmol/L BUN 63 H (7-17) mg/dL Creatinine 3.45 H (0.52-1.04) mg/dL Glucose 109 H (74-99) mg/dL POC Glucose (mg/dL) 116 H 124 H (70-110) mg/dL Calcium 7.9 L (8.4-10.2) mg/dL 05/06/23 05/07/2323 Range/Units 20:03 06:12 08:21 WBC (3.8-10.6) k/uL RBC (3.80-5.40) m/uL Hgb (11.4-16.0) gm/dL Hct (34.0-46.0) % MCHC (31.0-37.0) g/dL RDW (11.5-15.5) % Sodium 133 L (137-145) mmol/L Carbon Dioxide (22-30) mmol/L BUN 62 H (7-17) mg/dL Creatinine 3.48 H (0.52-1.04) mg/dL Glucose 113 H (74-99) mg/dL POC Glucose (mg/dL) 159 H 149 H (70-110) mg/dL Calcium 8.1 L (8.4-10.2) mg/dL 05/07/23 Range/Units 08:21 WBC 13.8 H (3.8-10.6) k/uL RBC 3.15 L (3.80-5.40) m/uL Hgb 9.4 L (11.4-16.0) gm/dL Hct 31.1 L (34.0-46.0) % MCHC 30.1 L (31.0-37.0) g/dL RDW 17.0 H (11.5-15.5) % Sodium (137-145) mmol/L Carbon Dioxide (22-30) mmol/L BUN (7-17) mg/dL Creatinine (0.52-1.04) mg/dL Glucose (74-99) mg/dL POC Glucose (mg/dL) (70-110) mg/dL Calcium (8.4-10.2) mg/dL Microbiology - Last 24 Hours (Table) 05/04/23 09:24 Urine Culture - Final Urine,Catheterized Escherichia coli Assessment and Plan Plan: Assessment: 1. Acute kidney injury secondary to ATN secondary to severe sepsis. Concern for progression of underlying chronic kidney disease. Creatinine stable at 3.48 today. No hydronephrosis noted on kidney ultrasound. 2. Chronic kidney disease stage IV with baseline creatinine near 2.5 secondary to diabetic kidney disease and cardiorenal syndrome. 3. Severe sepsis secondary to E. coli UTI on antibiotics. 4. Anemia of chronic kidney disease. Iron deficiency noted. 5. Metabolic acidosis secondary to acute kidney injury and IV fluids. On bicarb drip. Improved. 6. Hypovolemic hyponatremia. Improving. 7. Chronic kidney disease mineral bone disease maintained on calcitriol and PhosLo. Phosphorus 5.8 dated 05/05/2023. Plan: Stop bicarbonate drip. Start normal saline at 50 mL an hour. Encourage oral intake. Maintain IV iron. Continue to monitor renal function and urine output.
[2023-05-07] MEDS: SODIUM CHLORIDE 0.9% 1,000 ML IV SCH (11:41)
[2023-05-07 11:53] LABS: Glucose,Whole Blood 102 mg/dL (70-110)
[2023-05-07 16:43] LABS: Glucose,Whole Blood 114 mg/dL (70-110)
--- NOTE | 2023-05-07 16:55 | P.PN ---
Subjective Progress Note Date: 05/07/23 Principal diagnosis: UTI and Bacteremia Patient is a 78-year-old female with a past medical history significant for diabetes mellitus hypertension hyperlipidemia atrial fibrillation renal disease patient apparently presented to the [place] ER for evaluation of lethargy and fever and this patient apparently a resident of a penitentiary in [facility], patient has been diagnosed with a urinary tract infection blood culture drawn at the outside facility came back positive with gram-positive cocci in chain. On today's visit that is 05/07/2023 patient continues to be afebrile patient is breathing comfortably on room air, the patient denies any chest pain shortness of breath or cough, the patient denies nausea vomiting no abdominal pain no diarrhea. Patient white count is slightly up to 13.8 today creatinine is down to 3.48 urine did grow E. coli that is sensitive pathogen Objective - Vital Signs Vital signs: Vital Signs Temp 97.8 F 05/07/23 15:28 Pulse 76 05/07/23 15:28 Resp 20 05/07/23 15:28 BP 141/70 05/07/23 15:28 Pulse Ox 94 L 05/07/23 15:28 FiO2 Intake & Output 05/06/23 05/07/23 05/07/23 18:59 06:59 18:59 Intake Total 180 Output Total 250 500 900 Balance -250 -500 -720 Intake: Oral 180 Output: Urine 250 500 900 Other: Voiding Method Indwelling Catheter Indwelling Catheter Indwelling Catheter - Exam GENERAL DESCRIPTION: Elderly female lying in bed in no distress RESPIRATORY SYSTEM: Unlabored breathing , decreased breath sounds at bases HEART: S1 S2 regular rate and rhythm ,no loud murmurs ABDOMEN: Soft , no tenderness EXTREMITIES: No edema feet - Labs CBC & Chem 7: 05/07/23 08:21 05/07/23 08:21 Labs: Abnormal Lab Results - Last 24 Hours (Table) 05/06/23 05/07/23 05/07/23 Range/Units 20:03 06:12 08:21 WBC (3.8-10.6) k/uL RBC (3.80-5.40) m/uL Hgb (11.4-16.0) gm/dL Hct (34.0-46.0) % MCHC (31.0-37.0) g/dL RDW (11.5-15.5) % Neutrophils # (1.3-7.7) k/uL Sodium 133 L (137-145) mmol/L BUN 62 H (7-17) mg/dL Creatinine 3.48 H (0.52-1.04) mg/dL Glucose 113 H (74-99) mg/dL POC Glucose (mg/dL) 159 H 149 H (70-110) mg/dL Calcium 8.1 L (8.4-10.2) mg/dL 05/07/23 05/07/23 Range/Units 08:21 16:41 WBC 13.8 H (3.8-10.6) k/uL RBC 3.15 L (3.80-5.40) m/uL Hgb 9.4 L (11.4-16.0) gm/dL Hct 31.1 L (34.0-46.0) % MCHC 30.1 L (31.0-37.0) g/dL RDW 17.0 H (11.5-15.5) % Neutrophils # 10.7 H (1.3-7.7) k/uL Sodium (137-145) mmol/L BUN (7-17) mg/dL Creatinine (0.52-1.04) mg/dL Glucose (74-99) mg/dL POC Glucose (mg/dL) 114 H (70-110) mg/dL Calcium (8.4-10.2) mg/dL Microbiology - Last 24 Hours (Table) 05/04/23 09:24 Urine Culture - Final Urine,Catheterized Escherichia coli Assessment and Plan (1) UTI (urinary tract infection) Current Visit: Yes Status: Acute Code(s): N39.0 - URINARY TRACT INFECTION, SITE NOT SPECIFIED SNOMED Code(s): 65387413 (2) Bacteremia Current Visit: Yes Status: Acute Code(s): R78.81 - BACTEREMIA SNOMED Code(s): 1385528 (3) Leukocytosis Current Visit: No Status: Acute Code(s): D72.829 - ELEVATED WHITE BLOOD CELL COUNT, UNSPECIFIED SNOMED Code(s): 867326002 Plan: 1patient presented to outside facility with weakness lethargy patient did have elevated white count positive UA concerning for a symptomatic urinary tract infection likely from enteric gram-negative pathogen keeping in mind the patient is a penitentiary resident we will need to cover for the resistant gram- negative. 2patient with renal insufficiency high risk of nephrotoxicity. 3patient with positive blood culture at the outside facility gram-positive cocci in chain questionably contaminant blood cultures has been repeated here and currently pending, the patient nurse has been advised to get the findings on the blood culture from outside facility 4-urine has been finalized with E. coli that is sensitive pathogen 5- we will continue the patient on Rocephin and monitor clinical course closely Dictation was produced using [employer] dictation software. please excuse any grammatical, word or spelling errors. Time with Patient: Less than 30
[2023-05-07 21:41] LABS: Glucose,Whole Blood 163 mg/dL (70-110)
[2023-05-07] MEDS: INSULIN DETEMIR (LEVEMIR) 100 UNIT/ML SYR SQ SCH (21:48)
[2023-05-07] MEDS: GABAPENTIN 300 MG CAP PO SCH (21:48)
[2023-05-07] MEDS: ATORVASTATIN 40 MG TAB PO SCH (21:49)
[2023-05-07] MEDS: clonazePAM 0.5 MG TAB PO SCH (21:49)
[2023-05-08 06:06] LABS: Glucose,Whole Blood 114 mg/dL (70-110)
[2023-05-08] MEDS: PANTOPRAZOLE 40 MG TABLET PO SCH (08:08)
[2023-05-08] MEDS: SODIUM BICARBONATE TAB 650 MG TAB PO SCH ×2 (08:08→21:17)
[2023-05-08] MEDS: carvediloL 12.5 MG TAB PO SCH ×2 (08:08→16:49)
[2023-05-08] MEDS: HYDROcodone/APAP 5-325MG 1 EACH TAB PO SCH ×3 (08:08→21:17)
[2023-05-08] MEDS: FERROUS SULFATE 325 MG TAB PO SCH ×2 (08:09→16:49)
[2023-05-08] MEDS: APIXABAN 2.5 MG TABLET PO SCH ×2 (08:09→21:17)
[2023-05-08] MEDS: CALCIUM ACETATE 667 MG TAB PO SCH ×3 (08:09→16:49)
[2023-05-08] MEDS: INSULIN ASPART (NovoLOG) 100 UNIT/ML VIAL SQ SCH ×4 (08:09→21:17)
[2023-05-08] MEDS: SODIUM CHLORIDE 0.9% 1,000 ML IV SCH (08:09)
[2023-05-08] MEDS: allopurinoL 300 MG TAB PO SCH (08:09)
[2023-05-08] MEDS: MAGNESIUM OXIDE 400 MG TAB PO SCH ×2 (08:09→21:17)
[2023-05-08 08:48] LABS: Anisocytosis Slight; Basophils % (A) 0 %; Eosinophils # (A) 0.4 k/uL (0-0.7); Eosinophils % (A) 3 %; HCT 33.6 % (34.0-46.0); HGB 10.3 gm/dL (11.4-16.0); Hypochromasia Marked; Lymphocytes # (A) 2.6 k/uL (1.0-4.8); Lymphocytes % (A) 19 %; MCH 30.6 pg (25.0-35.0); MCHC 30.5 g/dL (31.0-37.0); MCV 100.4 fL (80.0-100.0); Macrocytosis Slight; Mean Platelet Volume 9.8; Monocytes # (A) 1.1 k/uL (0-1.0); Monocytes % (A) 8 %; Neutrophils # (A) 9.4 k/uL (1.3-7.7); Neutrophils % (A) 67 %; Platelet Count 209 k/uL (150-450); RBC 3.35 m/uL (3.80-5.40)
[2023-05-08 09:03] LABS: African American GFR (CKD) 15 (>60 ml/min/1.73 sqM); Anion Gap 7 mmol/L; Blood Urea Nitrogen 63 mg/dL (7-17); Calcium 8.5 mg/dL (8.4-10.2); Carbon Dioxide 24 mmol/L (22-30); Chloride 104 mmol/L (98-107); Glucose 110 mg/dL (74-99); Non-African American GFR(CKD) 13 (>60 ml/min/1.73 sqM); Potassium 4.8 mmol/L (3.5-5.1); Sodium 135 mmol/L (137-145)
--- NOTE | 2023-05-08 09:30 | P.PN ---
Subjective Patient is seen in follow-up for acute kidney injury on chronic kidney disease. Patient has chronic kidney disease stage IV with baseline creatinine near 2.5. Etiology is diabetic kidney disease and cardiorenal syndrome. Currently resting in bed. Being treated for UTI. Renal function stable. Has Akhtar catheter. Nonoliguric. Oral intake fair. No changes overnight. Vital signs are stable. General: No acute distress. HEENT: Head exam is unremarkable. LUNGS: No audible rhonchi or wheezes. HEART: Rate and Rhythm are regular. ABDOMEN: Nontender. EXTREMITITES: No edema. Objective - Vital Signs Vital signs: Vital Signs Temp 98.5 F 05/08/23 08:07 Pulse 83 05/08/23 08:07 Resp 16 05/08/23 08:07 BP 146/82 05/08/23 08:07 Pulse Ox 94 L 05/08/23 08:22 FiO2 21 05/08/23 08:22 Intake & Output 05/07/23 05/08/23 05/08/23 18:59 06:59 18:59 Intake Total 180 120 Output Total 900 225 Balance -720 -225 120 Intake: Oral 180 120 Output: Urine 900 225 Other: Voiding Method Indwelling Catheter Indwelling Catheter # Voids 1 - Labs CBC & Chem 7: 05/08/23 07:13 05/08/23 07:13 Labs: Abnormal Lab Results - Last 24 Hours (Table) 05/07/23 05/07/23 05/07/23 Range/Units 08:21 08:21 16:41 WBC 13.8 H (3.8-10.6) k/uL RBC 3.15 L (3.80-5.40) m/uL Hgb 9.4 L (11.4-16.0) gm/dL Hct 31.1 L (34.0-46.0) % MCV (80.0-100.0) fL MCHC 30.1 L (31.0-37.0) g/dL RDW 17.0 H (11.5-15.5) % Neutrophils # 10.7 H (1.3-7.7) k/uL Monocytes # (0-1.0) k/uL Sodium 133 L (137-145) mmol/L BUN 62 H (7-17) mg/dL Creatinine 3.48 H (0.52-1.04) mg/dL Glucose 113 H (74-99) mg/dL POC Glucose (mg/dL) 114 H (70-110) mg/dL Calcium 8.1 L (8.4-10.2) mg/dL 05/07/23 05/08/23 05/08/23 Range/Units 21:39 06:05 07:13 WBC 14.0 H (3.8-10.6) k/uL RBC 3.35 L (3.80-5.40) m/uL Hgb 10.3 L (11.4-16.0) gm/dL Hct 33.6 L (34.0-46.0) % MCV 100.4 H (80.0-100.0) fL MCHC 30.5 L (31.0-37.0) g/dL RDW 17.0 H (11.5-15.5) % Neutrophils # 9.4 H (1.3-7.7) k/uL Monocytes # 1.1 H (0-1.0) k/uL Sodium (137-145) mmol/L BUN (7-17) mg/dL Creatinine (0.52-1.04) mg/dL Glucose (74-99) mg/dL POC Glucose (mg/dL) 163 H 114 H (70-110) mg/dL Calcium (8.4-10.2) mg/dL 05/08/23 Range/Units 07:13 WBC (3.8-10.6) k/uL RBC (3.80-5.40) m/uL Hgb (11.4-16.0) gm/dL Hct (34.0-46.0) % MCV (80.0-100.0) fL MCHC (31.0-37.0) g/dL RDW (11.5-15.5) % Neutrophils # (1.3-7.7) k/uL Monocytes # (0-1.0) k/uL Sodium 135 L (137-145) mmol/L BUN 63 H (7-17) mg/dL Creatinine 3.22 H (0.52-1.04) mg/dL Glucose 110 H (74-99) mg/dL POC Glucose (mg/dL) (70-110) mg/dL Calcium (8.4-10.2) mg/dL Microbiology - Last 24 Hours (Table) 05/06/23 10:30 Blood Culture - Preliminary Blood Assessment and Plan Plan: Assessment: 1. Acute kidney injury secondary to ATN secondary to severe sepsis. Concern for progression of underlying chronic kidney disease. Creatinine fairly stable at 3.22 onephrosis noted on kidney ultrasound. 2. Chronic kidney disease stage IV with baseline creatinine near 2.5 secondary to diabetic kidney disease and cardiorenal syndrome. 3. Severe sepsis secondary to E. coli UTI on antibiotics. 4. Anemia of chronic kidney disease. Iron deficiency noted. 5. Metabolic acidosis secondary to acute kidney injury and IV fluids. s/p bicarb drip. Improved. 6. Hypovolemic hyponatremia. Improving. 7. Chronic kidney disease mineral bone disease maintained on calcitriol and PhosLo. Phosphorus 5.8 dated 05/05/2023. Plan: Maintain gentle IV hydration. Encourage oral intake. Maintain IV iron. Continue to monitor renal function and urine output.
[2023-05-08 11:52] LABS: Glucose,Whole Blood 119 mg/dL (70-110)
[2023-05-08] MEDS: SODIUM FERRIC GLUCONAT-SUCROSE 125 MG in SODIUM CHLORIDE 0.9% 100 ML IVPB SCH (12:15)
[2023-05-08 16:41] LABS: Glucose,Whole Blood 152 mg/dL (70-110)
--- NOTE | 2023-05-08 17:55 | CDI ---
Documentation Clarification Form Date: 05/08/2023 05:17:20 PM From: Adrienne Yadav RN, CCDS Admit Date: 05/04/2023 04:32:00 AM Patient Name: Maurice Hilton Visit Number: [id number] Discharge Date: ATTENTION: The Clinical Documentation Specialists (CDI) and [facility] Coding Staff appreciate your assistance in clarifying documentation. Please respond to the clarification below the line at the bottom and electronically sign. The CDI & [facility] Coding staff will review the response and follow-up if needed. Please note: Queries are made part of the Legal Health Record. If you have any questions, please contact the author of this message via ITS. Dr. Rossy Nguyen The patient has urosepsis documented in the H/P and subsequent progress notes. Additional clarification is requested. Based on this information and the findings below, is there an additional diagnosis that is clinically appropriate for this patient? 05/05 Nephrology progress note: Acute kidney injury secondary to ATN secondary to severe sepsis. Severe sepsis secondary to gram-negative UTI on antibiotics. 05/05 ID consult: patient presented to outside facility with weakness lethargy patient did have elevated white count positive UA concerning for a symptomatic urinary tract infection likely from enteric gram-negative pathogen History/Risk Factors: Atrial Fibrillation, Chest Pain / Angina, Dementia, Diabetes Mellitus, GERD/Reflux, Hyperlipidemia, Hypertension, Musculoskeletal Disorder, Clinical Indicators: 78-year-old [place] female transferred from [facility] with diagnosis of UTI with sepsis. She was found to have signs of lethargy and fever. 05/04 WBC 21.2 Neutrophils 17.6 Na 129 BUN 65, Cr 3.63 GFR 11 UA: Large leukocyte Esterase, Urine WBC >182 05/04 Urine culture: Escherichia coli 05/04 Lactic acid: 1.1 Blood cultures: Pending 05/04 Vital signs: 86/33 75 18 98.3 92% RA, 73/33 75 18 92 % RA Treatment: Cardiac/Telemetry monitoring Cefepime 2 GM IVPB Once 05/04 then 1 GM IVPB 05/05-05/05 Rocephin 2 GM IVPB .9 NS 1,000 IV Bolus 05/04 Is there an additional diagnosis that is clinically appropriate for this patient to further clarify urosepsis? [ ] Sepsis, secondary to UTI, present on admission [ ] Sepsis ruled out [ ] Severe Sepsis with organ failure [ ] Other, please specify [ ] Unable to determine SIRS Criteria: 2 or more of the following may indicate SIRS Temperature < 96.8F (36C) or > 101.0F (38.3C) Heart Rate > 90 bpm Respiratory Rate > 20 breaths/min or PaCO2 < 32 mmHg White Blood Cell Count > 12,000 or < 4,000 cells/mm3 or > 10% bands (Template Last Reviewed: September 2022) Acute UTI with sepsis.From E. coli.: Improving IV ceftriaxone and -Sepsis secondary to UTI Dictated By: Jeff Schumacher MD Signed By: <Electronically signed by Jeff Schumacher MD> 05/08/23 2049 MTDD
[2023-05-08 19:55] LABS: Glucose,Whole Blood 111 mg/dL (70-110)
--- NOTE | 2023-05-08 20:49 | P.PN ---
Progress Note - Text Progress Note Date: 05/08/23 78-year-old female she is a resident at shelter in [facility]. She was found to have signs of lethargy and also fever. She was transferred to [facility] for further evaluation. Patient allegedly a low-grade temperature 100.0. She seemed to be lethargic according to staff. The medic for at least 2 days and progressively she look like she was getting worse. She had labs drawn showing a white count of 29. Patient was seen at urinary tract infection were there is concern that patient was having a significant UTI. Patient is a poor historian. Patient present illness Limited due to limited barrier. Patient denies any pain at this time. patient did have a positive UA with large leukocyte esterase more than 22 WBC white count 21.2 however the left shift and did have a creatinine of 3.70 liver exams are normal Patient remains on IV cefepime per ID recommendations; urine culture growing gram-negative bacilli; final culture and sensitivities pending - Lab review shows improved white blood count of 11.5, sodium is improved at 134; BUN/creatinine remains elevated at 67/3.73; renal ultrasound is completed and is unremarkable; nephrology on board 05/06/2023 patient is seen and evaluated in room at bedside; remains afebrile patient is breathing comfortably on 2 L nasal cannula oxygen denies any chest pain shortness of breath or cough no nausea vomiting no abdominal pain no diarrhea. Patient white count is down to 11.5 creatinine down to 3.45 from 3.73 yesterday; preliminary urine culture reveals gram-negative bacilli. patient presented to outside facility with weakness lethargy patient did have elevated white count positive UA concerning for a symptomatic urinary tract infection likely from enteric gram-negative pathogen keeping in mind the patient is a shelter resident we will need to cover for the resistant gram-negativ e. patient with renal insufficiency high risk of nephrotoxicity. patient with positive blood culture at the outside facility gram-positive cocci in chain questionably contaminant blood cultures will be repeated to document clearance to hold on adding vancomycin as the patient white count is trending down and the patient did have renal insufficiency. patient to continue cefepime while awaiting further urine culture to finalize and monitor clinical course closely May 07: Patient seen by [facility] hospitalists. May 08: I assumed care of the patient today. Laying in bed. Appetite fair. Diet. On IV ceftriaxone. Blood culture from outside facility positive but felt to be contaminant as per ID. Active Medications Acetaminophen (Acetaminophen Tab 325 Mg Tab) 650 mg PO Q6HR PRN PRN Reason: Mild Pain or Fever > 100.5 Last Admin: 05/06/23 23:30 Dose: 650 mg Hydrocodone Bitart/Acetaminophen (Hydrocodone/Apap 5-325mg 1 Each Tab) 1 each PO TID@0700,1200,2100 [facility] Last Admin: 05/08/23 11:40 Dose: 1 each Allopurinol (Allopurinol 300 Mg Tab) 300 mg PO DAILY@0700 [facility] Last Admin: 05/08/23 08:09 Dose: 300 mg Apixaban (Apixaban 2.5 Mg Tablet) 2.5 mg PO BID [facility]; Protocol Last Admin: 05/08/23 08:09 Dose: 2.5 mg Atorvastatin Calcium (Atorvastatin 40 Mg Tab) 40 mg PO HS@2100 [facility] Last Admin: 05/07/23 21:49 Dose: 40 mg Bisacodyl (Bisacodyl 10 Mg Supp) 10 mg RECTAL DAILY PRN PRN Reason: Constipation Calcitriol (Calcitriol 0.25 Mcg Cap) 0.25 mcg PO MOTUWETHSA@1200 [facility] Last Admin: 05/08/23 11:40 Dose: 0.25 mcg Calcium Acetate (Calcium Acetate 667 Mg Tab) 667 mg PO TID-W/MEALS [facility] Last Admin: 05/08/23 16:49 Dose: 667 mg Carvedilol (Carvedilol 12.5 Mg Tab) 25 mg PO BID@0700,1700 [facility] Last Admin: 05/08/23 16:49 Dose: 25 mg Clonazepam (Clonazepam 0.5 Mg Tab) 0.5 mg PO [facility] Last Admin: 05/07/23 21:49 Dose: 0.5 mg Dextrose/Water (Dextrose 50% Syringe 50 Ml) 25 ml IVP PER PROTOCOL PRN; Protocol PRN Reason: Hypoglycemia Dextrose/Water (Dextrose 50% Syringe 50 Ml) 50 ml IVP PER PROTOCOL PRN; Protocol PRN Reason: Hypoglycemia Ferrous Sulfate (Ferrous Sulfate 325 Mg Tab) 325 mg PO BID@0700,1700 [facility] Last Admin: 05/08/23 16:49 Dose: 325 mg Gabapentin (Gabapentin 300 Mg Cap) 300 mg PO [facility] Last Admin: 05/07/23 21:48 Dose: 300 mg Ceftriaxone Sodium 2 gm/ (Sodium Chloride) 50 mls @ 100 mls/hr IVPB Q24HR [facility]; Protocol Last Admin: 05/08/23 11:36 Dose: 100 mls/hr Sodium Chloride (Saline 0.9%) 1,000 mls @ 50 mls/hr IV .Q20H [facility] Last Admin: 05/08/23 08:09 Dose: 50 mls/hr Insulin Aspart (Insulin Aspart (Novolog) 100 Unit/Ml Vial) 0 unit SQ ACHS [facility]; Protocol Last Admin: 05/08/23 16:49 Dose: 2 unit Insulin Detemir (Insulin Detemir (Levemir) 100 Unit/Ml Syr) 25 unit SQ HS [facility] Last Admin: 05/07/23 21:48 Dose: 25 unit Magnesium Oxide (Magnesium Oxide 400 Mg Tab) 400 mg PO BID [facility] Last Admin: 05/08/23 08:09 Dose: 400 mg Naloxone HCl (Naloxone 0.4 Mg/Ml 1 Ml Vial) 0.2 mg IV Q2M PRN PRN Reason: Opioid Reversal Pantoprazole Sodium (Pantoprazole 40 Mg Tablet) 40 mg PO DAILY@0700 [facility] Last Admin: 05/08/23 08:08 Dose: 40 mg Sodium Bicarbonate (Sodium Bicarbonate Tab 650 Mg Tab) 650 mg PO BID [facility] Last Admin: 05/08/23 08:08 Dose: 650 mg Past medical history to include: Diabetes, paroxysmal atrial fibrillation, Parkinson's, epilepsy, hyperlipidemia, anxiety, depression, sick sinus syndrome with a pacemaker, PAD, CK D stage III, gout, dementia, GERD, non-ambulatory Social history: lives at [facility]. Needs a Nba lift a wheelchair. Incontinent. She can feed herself. No history of smoking alcohol known. Physical examination: VITAL SIGNS: 98.5, 61, 16, 106/45, 97% room air GENERAL: BMI 30 2., Reclining in bed, tired EYES: Pupils equal. Conjunctiva normal. HEENT: External appearance of nose and ears normal, oral cavity grossly normal. NECK: JVD unable to assess; masses not palpable. HEART: Heart sounds irregular; some edema. LUNGS:[ Respiratory rate increased; decreased breath sounds. ABDOMEN: Soft, nontender, liver spleen not palpable, no masses palpable. PSYCH: Answering simple questions appropriately. MUSCULOSKELETAL:No Clubbing/cyanosis;muscles-grossly intact. Evidence of OA. Bilateral foot drop INVESTIGATIONS, reviewed in the clinical context: May 08: White count 14 hemoglobin 10.3 platelets 209 dose potassium 4.8 BUN 63 creatinine 2.2 to Urine culture: E. coli Previous labs: Creatinine 3.86 on 01/23/2023 Urosepsis Acute renal failure Hyponatremia Hypertension Hyperlipidemia Diabetes mellitus type 2 Seizure disorder Atrial fibrillation Sick sinus syndrome with history of pacemaker Dementia -- Patient has been admitted to telemetry; UTI likely related to enteric gram- negative pathogens given patient is a shelter resident; patient remains on IV antibiotics in form of cefepime; urine culture and blood cultures are obtained and pending; white blood count is elevated at 21.2; we will monitor CBC, CRP and pro-calcitonin - Nephrology on board; B UN/creatinine elevated at 65/3.63 upon admission, patient remains on IV fluid hydration with normal saline; we will monitor strict JONATHAN's, daily weights, renal function and electrolytes; avoid nephrotoxins and hypotension; renal ultrasound is ordered - Blood pressure remained soft and Coreg has been placed on hold; we will monitor blood pressure closely; we'll cautiously resume medications once blood pressure improves - Monitor electrolytes closely and adjust IV fluids if hyponatremia persists; p atient might need fluid restriction -- Patient takes Coreg for rate control for chronic atrial fibrillation; long- term anticoagulation therapy DVT prophylaxis; SCDs/systemic anticoagulation CODE STATUS; full code Assessment and plan: -Acute UTI with sepsis. From E. coli.: Improving IV ceftriaxone and -Sepsis secondary to UTI IV fluids. Antibiotics -Probable contaminant blood culture -Acute kidney injury, suspect ATN.: Secondary to sepsis. He followed by nephrology. -Chronic kidney disease stage IV secondary to diabetic kidney disease and cardiorenal syndrome. Baseline creatinine around 2.5 -Acute delirium metabolic encephalopathy UTI from presentation, presenting initially as lethargy. Better -Depression and anxiety Zoloft. Klonopin -Diabetes mellitus type 2, chronically on insulin Levemir... Follow Accu-Cheks with sliding scale insulin -Diabetic peripheral neuropathy Neurontin 300 mg daily at bedtime -Major cognitive impairment/dementia -Paroxysmal atrial fibrillation Eliquis -sick sinus syndrome with a pacemaker -Chronic medical debility, - baseline needs Nba lift. Fall precautions -Essential hypertension Coreg 25 mg by mouth twice a day -Chronic gout Allopurinol 300 mg a day -Hyperlipidemia Lipitor 40 mg daily at bedtime -Chronic kidney disease stage III likely from diabetic nephropathy and hypertensive nephrosclerosis Renal ultrasound showing bilateral cortical thinning. -Chronic pain syndrome [place] 5 one tablet 3 times a day -Full code Pending repeat blood cultures to finalize. Continue IV ceftriaxone. Oral intake better. Getting IV iron.
[2023-05-08] MEDS: ATORVASTATIN 40 MG TAB PO SCH (21:17)
[2023-05-08] MEDS: clonazePAM 0.5 MG TAB PO SCH (21:17)
[2023-05-08] MEDS: INSULIN DETEMIR (LEVEMIR) 100 UNIT/ML SYR SQ SCH (21:17)
[2023-05-08] MEDS: GABAPENTIN 300 MG CAP PO SCH (21:17)
[2023-05-09] MEDS: SODIUM CHLORIDE 0.9% 1,000 ML IV SCH ×2 (04:15→21:41)
[2023-05-09 06:22] LABS: Glucose,Whole Blood 82 mg/dL (70-110)
[2023-05-09] MEDS: INSULIN ASPART (NovoLOG) 100 UNIT/ML VIAL SQ SCH ×4 (06:22→21:36)
[2023-05-09] MEDS: HYDROcodone/APAP 5-325MG 1 EACH TAB PO SCH ×3 (06:59→21:41)
[2023-05-09] MEDS: carvediloL 12.5 MG TAB PO SCH ×2 (06:59→19:08)
[2023-05-09] MEDS: PANTOPRAZOLE 40 MG TABLET PO SCH (07:00)
[2023-05-09] MEDS: FERROUS SULFATE 325 MG TAB PO SCH ×2 (07:00→19:08)
[2023-05-09] MEDS: allopurinoL 300 MG TAB PO SCH (07:00)
--- NOTE | 2023-05-09 08:23 | P.PN ---
Subjective Progress Note Date: 05/08/23 Principal diagnosis: UTI and Bacteremia Patient is a 78-year-old female with a past medical history significant for diabetes mellitus hypertension hyperlipidemia atrial fibrillation renal disease patient apparently presented to the [place] [facility] for evaluation of lethargy and fever and this patient apparently a resident of a fpc in [facility], patient has been diagnosed with a urinary tract infection blood culture drawn at the outside facility came back positive with gram-positive cocci in chain. On today's visit that is 05/08/2023 the patient remains to be afebrile the patient is breathing comfortably on room air no chest pain shortness of breath cough no abdominal pain no diarrhea. Patient white count of 14,000 creatinine 3.22 urine with E. coli blood culture here has been negative blood culture at the outside facility was positive for streptococci agalactiae Objective - Vital Signs Vital signs: Vital Signs Temp 98.5 F 05/08/23 11:33 Pulse 61 05/08/23 11:33 Resp 16 05/08/23 11:33 BP 106/45 05/08/23 11:33 Pulse Ox 97 05/08/23 11:33 FiO2 21 05/08/23 08:22 Intake & Output 05/07/23 05/08/23 05/08/23 18:59 06:59 18:59 Intake Total 180 120 Output Total 900 225 Balance -720 -225 120 Intake: Oral 180 120 Output: Urine 900 225 Other: Voiding Method Indwelling Catheter Indwelling Catheter Indwelling Catheter # Voids 1 - Exam GENERAL DESCRIPTION: Elderly female lying in bed in no distress RESPIRATORY SYSTEM: Unlabored breathing , decreased breath sounds at bases HEART: S1 S2 regular rate and rhythm ,no loud murmurs ABDOMEN: Soft , no tenderness EXTREMITIES: No edema feet - Labs CBC & Chem 7: 05/08/23 07:13 05/08/23 07:13 Labs: Abnormal Lab Results - Last 24 Hours (Table) 05/07/23 05/07/23 05/08/23 Range/Units 16:41 21:39 06:05 WBC (3.8-10.6) k/uL RBC (3.80-5.40) m/uL Hgb (11.4-16.0) gm/dL Hct (34.0-46.0) % MCV (80.0-100.0) fL MCHC (31.0-37.0) g/dL RDW (11.5-15.5) % Neutrophils # (1.3-7.7) k/uL Monocytes # (0-1.0) k/uL Sodium (137-145) mmol/L BUN (7-17) mg/dL Creatinine (0.52-1.04) mg/dL Glucose (74-99) mg/dL POC Glucose (mg/dL) 114 H 163 H 114 H (70-110) mg/dL 05/08/23 05/08/23 05/08/23 Range/Units 07:13 07:13 11:46 WBC 14.0 H (3.8-10.6) k/uL RBC 3.35 L (3.80-5.40) m/uL Hgb 10.3 L (11.4-16.0) gm/dL Hct 33.6 L (34.0-46.0) % MCV 100.4 H (80.0-100.0) fL MCHC 30.5 L (31.0-37.0) g/dL RDW 17.0 H (11.5-15.5) % Neutrophils # 9.4 H (1.3-7.7) k/uL Monocytes # 1.1 H (0-1.0) k/uL Sodium 135 L (137-145) mmol/L BUN 63 H (7-17) mg/dL Creatinine 3.22 H (0.52-1.04) mg/dL Glucose 110 H (74-99) mg/dL POC Glucose (mg/dL) 119 H (70-110) mg/dL Microbiology - Last 24 Hours (Table) 05/06/23 10:30 Blood Culture - Preliminary Blood Assessment and Plan (1) UTI (urinary tract infection) Current Visit: Yes Status: Acute Code(s): N39.0 - URINARY TRACT INFECTION, SITE NOT SPECIFIED SNOMED Code(s): 64652462 (2) Bacteremia Current Visit: Yes Status: Acute Code(s): R78.81 - BACTEREMIA SNOMED Code(s): 1363722 (3) Leukocytosis Current Visit: No Status: Acute Code(s): D72.829 - ELEVATED WHITE BLOOD CELL COUNT, UNSPECIFIED SNOMED Code(s): 192603757 Plan: 1patient presented to outside facility with weakness lethargy patient did have elevated white count positive UA concerning for a symptomatic urinary tract infection likely from enteric gram-negative pathogen keeping in mind the patient is a fpc resident we will need to cover for the resistant gram- negative. 2patient with renal insufficiency high risk of nephrotoxicity. 3positive blood culture. Blood cultures negative likely blood cultures at this facility has been negative patient currently do not have any skin or soft tissue lesion and urine is growing E. coli. 4patient to continue with the Rocephin will transition to oral Ceftin on discharge Dictation was produced using [employer] dictation software. please excuse any grammatical, word or spelling errors.
[2023-05-09] MEDS: MAGNESIUM OXIDE 400 MG TAB PO SCH ×2 (10:30→21:41)
[2023-05-09] MEDS: APIXABAN 2.5 MG TABLET PO SCH ×2 (10:30→21:40)
[2023-05-09] MEDS: SODIUM BICARBONATE TAB 650 MG TAB PO SCH ×2 (10:30→21:41)
[2023-05-09] MEDS: CALCIUM ACETATE 667 MG TAB PO SCH ×3 (10:30→19:08)
--- NOTE | 2023-05-09 11:17 | P.PN ---
Subjective Patient is seen in follow-up for acute kidney injury on chronic kidney disease. Patient has chronic kidney disease stage IV with baseline creatinine near 2.5. Etiology is diabetic kidney disease and cardiorenal syndrome. Currently resting in bed. Being treated for UTI. Renal function stable. Has Akhtar catheter. Nonoliguric. Oral intake fair. No changes overnight. Vital signs are stable. General: No acute distress. HEENT: Head exam is unremarkable. LUNGS: No audible rhonchi or wheezes. HEART: Rate and Rhythm are regular. ABDOMEN: Nontender. EXTREMITITES: No edema. Objective - Vital Signs Vital signs: Vital Signs Temp 97.5 F L 05/09/23 08:00 Pulse 61 05/09/23 08:00 Resp 16 05/09/23 08:00 BP 116/62 05/09/23 08:00 Pulse Ox 100 05/09/23 08:00 FiO2 21 05/08/23 08:22 Intake & Output 05/08/23 05/09/23 05/09/23 18:59 06:59 18:59 Intake Total 300 0 Output Total 325 225 Balance -25 -225 0 Intake: Oral 300 0 Output: Urine 325 225 Other: Voiding Method Indwelling Catheter Indwelling Catheter Indwelling Catheter # Voids 1 # Bowel Movements 1 - Labs CBC & Chem 7: 05/08/23 07:13 05/08/23 07:13 Labs: Abnormal Lab Results - Last 24 Hours (Table) 05/08/23 05/08/23 05/08/23 Range/Units 11:46 16:35 19:53 POC Glucose (mg/dL) 119 H 152 H 111 H (70-110) mg/dL Microbiology - Last 24 Hours (Table) 05/06/23 10:30 Blood Culture - Preliminary Blood Assessment and Plan Plan: Assessment: 1. Acute kidney injury secondary to ATN secondary to severe sepsis. Concern for progression of underlying chronic kidney disease. Creatinine fairly stable at 3.22 yesterday. No hydronephrosis noted on kidney ultrasound. 2. Chronic kidney disease stage IV with baseline creatinine near 2.5 secondary to diabetic kidney disease and cardiorenal syndrome. 3. Severe sepsis secondary to E. coli UTI on antibiotics. 4. Anemia of chronic kidney disease. Iron deficiency noted. 5. Metabolic acidosis secondary to acute kidney injury and IV fluids. s/p bicarb drip. Improved. 6. Hypovolemic hyponatremia. Improving. 7. Chronic kidney disease mineral bone disease maintained on calcitriol and PhosLo. Phosphorus 5.8 dated 05/05/2023. Plan: Maintain gentle IV hydration. Encourage oral intake. Maintain IV iron. Continue to monitor renal function and urine output.
[2023-05-09 11:32] LABS: Glucose,Whole Blood 93 mg/dL (70-110)
[2023-05-09 16:39] LABS: Glucose,Whole Blood 85 mg/dL (70-110)
--- NOTE | 2023-05-09 19:12 | P.PN ---
Progress Note - Text Progress Note Date: 05/09/23 78-year-old female she is a resident at half-way in [facility]. She was found to have signs of lethargy and also fever. She was transferred to [facility] for further evaluation. Patient allegedly a low-grade temperature 100.0. She seemed to be lethargic according to staff. The medic for at least 2 days and progressively she look like she was getting worse. She had labs drawn showing a white count of 29. Patient was seen at urinary tract infection were there is concern that patient was having a significant UTI. Patient is a poor historian. Patient present illness Limited due to limited barrier. Patient denies any pain at this time. patient did have a positive UA with large leukocyte esterase more than 22 WBC white count 21.2 however the left shift and did have a creatinine of 3.70 liver exams are normal Patient remains on IV cefepime per ID recommendations; urine culture growing gram-negative bacilli; final culture and sensitivities pending - Lab review shows improved white blood count of 11.5, sodium is improved at 134; BUN/creatinine remains elevated at 67/3.73; renal ultrasound is completed and is unremarkable; nephrology on board 05/06/2023 patient is seen and evaluated in room at bedside; remains afebrile patient is breathing comfortably on 2 L nasal cannula oxygen denies any chest pain shortness of breath or cough no nausea vomiting no abdominal pain no diarrhea. Patient white count is down to 11.5 creatinine down to 3.45 from 3.73 yesterday; preliminary urine culture reveals gram-negative bacilli. patient presented to outside facility with weakness lethargy patient did have elevated white count positive UA concerning for a symptomatic urinary tract infection likely from enteric gram-negative pathogen keeping in mind the patient is a half-way resident we will need to cover for the resistant gram-negativ e. patient with renal insufficiency high risk of nephrotoxicity. patient with positive blood culture at the outside facility gram-positive cocci in chain questionably contaminant blood cultures will be repeated to document clearance to hold on adding vancomycin as the patient white count is trending down and the patient did have renal insufficiency. patient to continue cefepime while awaiting further urine culture to finalize and monitor clinical course closely May 07: Patient seen by [facility] hospitalists. May 08: I assumed care of the patient today. Laying in bed. Appetite fair. Diet. On IV ceftriaxone. Blood culture from outside facility positive but felt to be contaminant as per ID. May 09: Laying in bed. Tired. Oral intake fluctuating. On IV ceftriaxone . Spoke to patient's Dr. Carrasco on the phone. At baseline patient is nonambulatory. I did explain that patient's overall prognosis is guarded. At this point he wished for her to continue to be full code. Active Medications Acetaminophen (Acetaminophen Tab 325 Mg Tab) 650 mg PO Q6HR PRN PRN Reason: Mild Pain or Fever > 100.5 Last Admin: 05/06/23 23:30 Dose: 650 mg Hydrocodone Bitart/Acetaminophen (Hydrocodone/Apap 5-325mg 1 Each Tab) 1 each PO TID@0700,1200,2100 [facility] Last Admin: 05/09/23 12:18 Dose: 1 each Allopurinol (Allopurinol 300 Mg Tab) 300 mg PO DAILY@0700 [facility] Last Admin: 05/09/23 07:00 Dose: 300 mg Apixaban (Apixaban 2.5 Mg Tablet) 2.5 mg PO BID [facility]; Protocol Last Admin: 05/09/23 10:30 Dose: 2.5 mg Atorvastatin Calcium (Atorvastatin 40 Mg Tab) 40 mg PO HS@2100 [facility] Last Admin: 05/08/23 21:17 Dose: 40 mg Bisacodyl (Bisacodyl 10 Mg Supp) 10 mg RECTAL DAILY PRN PRN Reason: Constipation Calcitriol (Calcitriol 0.25 Mcg Cap) 0.25 mcg PO MOTUWETHSA@1200 [facility] Last Admin: 05/09/23 12:18 Dose: 0.25 mcg Calcium Acetate (Calcium Acetate 667 Mg Tab) 667 mg PO TID-W/MEALS [facility] Last Admin: 05/09/23 19:08 Dose: Not Given Carvedilol (Carvedilol 12.5 Mg Tab) 25 mg PO BID@0700,1700 [facility] Last Admin: 05/09/23 19:08 Dose: Not Given Clonazepam (Clonazepam 0.5 Mg Tab) 0.5 mg PO HS [facility] Last Admin: 05/08/23 21:17 Dose: 0.5 mg Dextrose/Water (Dextrose 50% Syringe 50 Ml) 25 ml IVP PER PROTOCOL PRN; Protocol PRN Reason: Hypoglycemia Dextrose/Water (Dextrose 50% Syringe 50 Ml) 50 ml IVP PER PROTOCOL PRN; Protocol PRN Reason: Hypoglycemia Ferrous Sulfate (Ferrous Sulfate 325 Mg Tab) 325 mg PO BID@0700,1700 [facility] Last Admin: 05/09/23 19:08 Dose: Not Given Gabapentin (Gabapentin 300 Mg Cap) 300 mg PO HS [facility] Last Admin: 05/08/23 21:17 Dose: 300 mg Ceftriaxone Sodium 2 gm/ (Sodium Chloride) 50 mls @ 100 mls/hr IVPB Q24HR [facility]; Protocol Last Admin: 05/09/23 10:30 Dose: 100 mls/hr Sodium Chloride (Saline 0.9%) 1,000 mls @ 50 mls/hr IV .Q20H [facility] Last Admin: 05/09/23 04:15 Dose: Not Given Insulin Aspart (Insulin Aspart (Novolog) 100 Unit/Ml Vial) 0 unit SQ [facility]; Protocol Last Admin: 05/09/23 19:07 Dose: Not Given Insulin Detemir (Insulin Detemir (Levemir) 100 Unit/Ml Syr) 25 unit SQ [facility] Last Admin: 05/08/23 21:17 Dose: 25 unit Magnesium Oxide (Magnesium Oxide 400 Mg Tab) 400 mg PO BID [facility] Last Admin: 05/09/23 10:30 Dose: 400 mg Naloxone HCl (Naloxone 0.4 Mg/Ml 1 Ml Vial) 0.2 mg IV Q2M PRN PRN Reason: Opioid Reversal Pantoprazole Sodium (Pantoprazole 40 Mg Tablet) 40 mg PO DAILY@0700 [facility] Last Admin: 05/09/23 07:00 Dose: 40 mg Sodium Bicarbonate (Sodium Bicarbonate Tab 650 Mg Tab) 650 mg PO BID [facility] Last Admin: 05/09/23 10:30 Dose: 650 mg Past medical history to include: Diabetes, paroxysmal atrial fibrillation, Parkinson's, epilepsy, hyperlipidemia, anxiety, depression, sick sinus syndrome with a pacemaker, PAD, CK D stage III, gout, dementia, GERD, non-ambulatory Social history: lives at [facility]. Needs a Nba lift a wheelchair. Incontinent. She can feed herself. No history of smoking alcohol known. Physical examination: VITAL SIGNS: 97.4, 65, 16, 137/69, 100% room air GENERAL: BMI 30 2., Reclining in bed, tired EYES: Pupils equal. Conjunctiva normal. HEENT: External appearance of nose and ears normal, oral cavity grossly normal. NECK: JVD unable to assess; masses not palpable. HEART: Heart sounds irregular; some edema. LUNGS:[ Respiratory rate increased; decreased breath sounds. ABDOMEN: Soft, nontender, liver spleen not palpable, no masses palpable. PSYCH: Answering simple questions . A bit lethargic MUSCULOSKELETAL:No Clubbing/cyanosis;muscles-grossly intact. Evidence of OA. Bilateral foot drop INVESTIGATIONS, reviewed in the clinical context: May 08: White count 14 hemoglobin 10.3 platelets 209 dose potassium 4.8 BUN 63 creatinine 2.2 to Urine culture: E. coli Previous labs: Creatinine 3.86 on 01/23/2023 Assessment and plan: -Acute UTI with sepsis. From E. coli.: Improving IV ceftriaxone and -Sepsis secondary to UTI IV fluids. Antibiotics -Probable contaminant blood culture -Acute kidney injury, suspect ATN.: Secondary to sepsis. He followed by nephrology. -Chronic kidney disease stage IV secondary to diabetic kidney disease and cardiorenal syndrome. Baseline creatinine around 2.5 -Acute delirium metabolic encephalopathy UTI from presentation, presenting initially as lethargy. Some improvement -Depression and anxiety Zoloft. Klonopin -Diabetes mellitus type 2, chronically on insulin Levemir... Follow Accu-Cheks with sliding scale insulin -Diabetic peripheral neuropathy Neurontin 300 mg daily at bedtime -Major cognitive impairment/dementia -Paroxysmal atrial fibrillation Eliquis -sick sinus syndrome with a pacemaker -Chronic medical debility, - baseline needs Nba lift. Fall precautions -Essential hypertension Coreg 25 mg by mouth twice a day -Chronic gout Allopurinol 300 mg a day -Hyperlipidemia Lipitor 40 mg daily at bedtime -Chronic kidney disease stage III likely from diabetic nephropathy and hypertensive nephrosclerosis Renal ultrasound showing bilateral cortical thinning. -Chronic pain syndrome [place] 5 one tablet 3 times a day -Full code Discussed with daughter the phone. Did tell her that from my stent patient overall prognosis guarded. Finished the patient to remain full code. Repeat blood cultures pending.
[2023-05-09 20:34] LABS: Glucose,Whole Blood 117 mg/dL (70-110)
[2023-05-09 20:36] LABS: Glucose,Whole Blood 115 mg/dL (70-110)
--- NOTE | 2023-05-09 21:30 | P.PN ---
Subjective Progress Note Date: 05/07/23 78-year-old female she is a resident at jail in [facility]. She was found to have signs of lethargy and also fever. She was transferred to [facility] for further evaluation. Patient allegedly a low-grade temperature 100.0. She seemed to be lethargic according to staff. The medic for at least 2 days and progressively she look like she was getting worse. She had labs drawn showing a white count of 29. Patient was seen at urinary tract infection were there is concern that patient was having a significant UTI. Patient is a poor historian. Patient present illness Limited due to limited barrier. Patient denies any pain at this time. patient did have a positive UA with large leukocyte esterase more than 22 WBC white count 21.2 however the left shift and did have a creatinine of 3.70 liver exams are normal Patient remains on IV cefepime per ID recommendations; urine culture growing gram-negative bacilli; final culture and sensitivities pending - Lab review shows improved white blood count of 11.5, sodium is improved at 134; BUN/creatinine remains elevated at 67/3.73; renal ultrasound is completed and is unremarkable; nephrology on board 05/06/2023 patient is seen and evaluated in room at bedside; remains afebrile patient is breathing comfortably on 2 L nasal cannula oxygen denies any chest pain shortness of breath or cough no nausea vomiting no abdominal pain no diarrhea. Patient white count is down to 11.5 creatinine down to 3.45 from 3.73 yesterday; preliminary urine culture reveals gram-negative bacilli. patient presented to outside facility with weakness lethargy patient did have elevated white count positive UA concerning for a symptomatic urinary tract infection likely from enteric gram-negative pathogen keeping in mind the patient is a jail resident we will need to cover for the resistant gram- negative. patient with renal insufficiency high risk of nephrotoxicity. patient with positive blood culture at the outside facility gram-positive cocci in chain questionably contaminant blood cultures will be repeated to document clearance to hold on adding vancomycin as the patient white count is trending down and the patient did have renal insufficiency. patient to continue cefepime while awaiting further urine culture to finalize and monitor clinical course closely 05/07/2023 patient is seen and evaluated in room at bedside; continues to be afebrile patient is breathing comfortably on room air, the patient denies any chest pain shortness of breath or cough, the patient denies nausea vomiting no abdominal pain no diarrhea. Patient white count is slightly up to 13.8 today creatinine is down to 3.48 urine did grow E. coli that is sensitive pathogen patient with positive blood culture at the outside facility gram-positive cocci in chain questionably contaminant blood cultures has been repeated here and currently pending, the patient nurse has been advised to get the findings on the blood culture from outside facility -urine has been finalized with E. coli that is sensitive pathogen - we will continue the patient on Rocephin and monitor clinical course closely Objective - Vital Signs Vital signs: Vital Signs Temp 98.0 F 05/07/23 08:22 Pulse 80 05/07/23 13:02 Resp 16 05/07/23 08:22 BP 126/67 05/07/23 08:22 Pulse Ox 98 05/07/23 08:22 FiO2 Intake & Output 05/06/23 05/07/23 05/07/23 18:59 06:59 18:59 Intake Total 180 Output Total 250 500 500 Balance -250 -500 -320 Intake: Oral 180 Output: Urine 250 500 500 Other: Voiding Method Indwelling Catheter Indwelling Catheter Indwelling Catheter - Exam General Impression: Alert and oriented, not in acute distress HEENT: Normocephalic atraumatic, extra-ocular movements intact, pupils equal and reactive to light bilaterally, mucous membranes moist. Cardiovascular: Heart regular rate and rhythm Chest: Able to complete full sentences, no retractions, no tachypnea Abdomen: abdomen soft, non-tender, non-distended, no organomegaly Musculoskeletal: Pulses present and equal in all extremities, no peripheral edema Motor: no focal deficits noted Neurological: CN II-XII grossly intact, no focal motor or sensory deficits noted Skin: Intact with no visualized rashes Psych: Normal affect and mood - Labs CBC & Chem 7: 05/08/23 07:13 05/08/23 07:13 Labs: Abnormal Lab Results - Last 24 Hours (Table) 05/06/23 05/06/23 05/07/23 Range/Units 16:25 20:03 06:12 WBC (3.8-10.6) k/uL RBC (3.80-5.40) m/uL Hgb (11.4-16.0) gm/dL Hct (34.0-46.0) % MCHC (31.0-37.0) g/dL RDW (11.5-15.5) % Neutrophils # (1.3-7.7) k/uL Sodium (137-145) mmol/L BUN (7-17) mg/dL Creatinine (0.52-1.04) mg/dL Glucose (74-99) mg/dL POC Glucose (mg/dL) 124 H 159 H 149 H (70-110) mg/dL Calcium (8.4-10.2) mg/dL 05/07/23 05/07/23 Range/Units 08:21 08:21 WBC 13.8 H (3.8-10.6) k/uL RBC 3.15 L (3.80-5.40) m/uL Hgb 9.4 L (11.4-16.0) gm/dL Hct 31.1 L (34.0-46.0) % MCHC 30.1 L (31.0-37.0) g/dL RDW 17.0 H (11.5-15.5) % Neutrophils # 10.7 H (1.3-7.7) k/uL Sodium 133 L (137-145) mmol/L BUN 62 H (7-17) mg/dL Creatinine 3.48 H (0.52-1.04) mg/dL Glucose 113 H (74-99) mg/dL POC Glucose (mg/dL) (70-110) mg/dL Calcium 8.1 L (8.4-10.2) mg/dL Microbiology - Last 24 Hours (Table) 05/04/23 09:24 Urine Culture - Final Urine,Catheterized Escherichia coli Assessment and Plan Assessment: Urosepsis Acute renal failure Hyponatremia Hypertension Hyperlipidemia Diabetes mellitus type 2 Seizure disorder Atrial fibrillation Sick sinus syndrome with history of pacemaker Dementia -- Patient has been admitted to telemetry; UTI likely related to enteric gram- negative pathogens given patient is a jail resident; patient remains on IV antibiotics in form of cefepime; urine culture and blood cultures are obtained and pending; white blood count is elevated at 21.2; we will monitor CBC, CRP and pro-calcitonin - Nephrology on board; B UN/creatinine elevated at 65/3.63 upon admission, patient remains on IV fluid hydration with normal saline; we will monitor strict JONATHAN's, daily weights, renal function and electrolytes; avoid nephrotoxins and hypotension; renal ultrasound is ordered - Blood pressure remained soft and Coreg has been placed on hold; we will monitor blood pressure closely; we'll cautiously resume medications once blood pressure improves - Monitor electrolytes closely and adjust IV fluids if hyponatremia persists; patient might need fluid restriction -- Patient takes Coreg for rate control for chronic atrial fibrillation; long- term anticoagulation therapy DVT prophylaxis; SCDs/systemic anticoagulation CODE STATUS; full code
[2023-05-09] MEDS: GABAPENTIN 300 MG CAP PO SCH (21:40)
[2023-05-09] MEDS: INSULIN DETEMIR (LEVEMIR) 100 UNIT/ML SYR SQ SCH (21:40)
[2023-05-09] MEDS: ATORVASTATIN 40 MG TAB PO SCH (21:41)
[2023-05-09] MEDS: clonazePAM 0.5 MG TAB PO SCH (21:41)
[2023-05-10 06:17] LABS: Glucose,Whole Blood 28 mg/dL (70-110)
[2023-05-10 06:17] LABS: Glucose,Whole Blood 29 mg/dL (70-110)
[2023-05-10 06:26] LABS: Glucose,Whole Blood 184 mg/dL (70-110)
[2023-05-10 06:39] LABS: Glucose,Whole Blood 126 mg/dL (70-110)
[2023-05-10 06:55] LABS: Glucose,Whole Blood 93 mg/dL (70-110)
[2023-05-10] MEDS ORDERED: DEXTROSE 5%-0.45% NACL 1,000 ML IV SCH ×3 (07:00→20:45)
[2023-05-10 07:09] LABS: Glucose,Whole Blood 97 mg/dL (70-110)
[2023-05-10 07:25] LABS: ABG Base Excess -0.4 mmol/L; ABG HCO3 26 mmol/L (21-25); ABG PCO2 51 mmHg (35-45); ABG PH 7.32 (7.35-7.45); ABG PO2 100 mmHg (83-108); ABG TCO2 27 mmol/L (19-24); Allen Test Performed? Yes
[2023-05-10 07:44] LABS: Anisocytosis Slight; Basophils % (A) 0 %; Eosinophils # (A) 0.2 k/uL (0-0.7); Eosinophils % (A) 2 %; HCT 32.8 % (34.0-46.0); HGB 9.8 gm/dL (11.4-16.0); Hypochromasia Marked; Lymphocytes # (A) 2.2 k/uL (1.0-4.8); Lymphocytes % (A) 18 %; MCH 29.7 pg (25.0-35.0); MCHC 29.8 g/dL (31.0-37.0); MCV 99.6 fL (80.0-100.0); Macrocytosis Slight; Mean Platelet Volume 8.5; Monocytes # (A) 0.7 k/uL (0-1.0); Monocytes % (A) 6 %; Neutrophils # (A) 9.3 k/uL (1.3-7.7); Neutrophils % (A) 74 %; Platelet Count 267 k/uL (150-450); RBC 3.29 m/uL (3.80-5.40); WBC 12.7 k/uL (3.8-10.6)
[2023-05-10 07:59] LABS: Glucose,Whole Blood 84 mg/dL (70-110)
[2023-05-10 08:05] LABS: African American GFR (CKD) 17 (>60 ml/min/1.73 sqM); Anion Gap 3 mmol/L; Blood Urea Nitrogen 56 mg/dL (7-17); Calcium 8.6 mg/dL (8.4-10.2); Carbon Dioxide 24 mmol/L (22-30); Chloride 109 mmol/L (98-107); Glucose 83 mg/dL (74-99); Magnesium 2.3 mg/dL (1.6-2.3); Non-African American GFR(CKD) 15 (>60 ml/min/1.73 sqM); Potassium 4.4 mmol/L (3.5-5.1); Sodium 136 mmol/L (137-145)
[2023-05-10 09:01] LABS: Glucose,Whole Blood 77 mg/dL (70-110)
[2023-05-10 10:03] LABS: Glucose,Whole Blood 77 mg/dL (70-110)
--- NOTE | 2023-05-10 10:40 | P.PN ---
Subjective Patient is seen in follow-up for acute kidney injury on chronic kidney disease. Patient has chronic kidney disease stage IV with baseline creatinine near 2.5. Etiology is diabetic kidney disease and cardiorenal syndrome. Currently resting in bed. Being treated for UTI. Renal function better. Has Akhtar catheter. Nonoliguric. Patient more lethargic this morning. Blood glucose was low. Undergoing EEG. Vital signs are stable. Hypothermic. General: No acute distress. HEENT: Head exam is unremarkable. On nasal cannula. LUNGS: No audible rhonchi or wheezes. HEART: Rate and Rhythm are regular. ABDOMEN: Nontender. EXTREMITITES: No edema. Objective - Vital Signs Vital signs: Vital Signs Temp 91.2 F L 05/10/23 09:35 Pulse 52 L 05/10/23 09:35 Resp 18 05/10/23 09:35 BP 105/61 05/10/23 09:35 Pulse Ox 99 05/10/23 09:35 FiO2 21 05/08/23 08:22 Intake & Output 05/09/23 05/10/23 05/10/23 18:59 06:59 18:59 Intake Total 238 Output Total 400 450 Balance -162 -450 Intake: Oral 238 Output: Urine 400 450 Other: Voiding Method Indwelling Catheter Indwelling Catheter # Voids 1 - Labs CBC & Chem 7: 05/10/23 07:23 05/10/23 07:23 Labs: Abnormal Lab Results - Last 24 Hours (Table) 05/09/23 05/09/23 05/10/23 Range/Units 20:32 20:35 06:13 WBC (3.8-10.6) k/uL RBC (3.80-5.40) m/uL Hgb (11.4-16.0) gm/dL Hct (34.0-46.0) % MCHC (31.0-37.0) g/dL RDW (11.5-15.5) % Neutrophils # (1.3-7.7) k/uL ABG pH (7.35-7.45) ABG pCO2 (35-45) mmHg ABG HCO3 (21-25) mmol/L ABG Total CO2 (19-24) mmol/L Sodium (137-145) mmol/L Chloride (98-107) mmol/L BUN (7-17) mg/dL Creatinine (0.52-1.04) mg/dL POC Glucose (mg/dL) 117 H 115 H 29 L (70-110) mg/dL Plasma Lactic Acid Bakari (0.7-2.0) mmol/L 05/10/23 05/10/23 05/10/23 Range/Units 06:15 06:24 06:37 WBC (3.8-10.6) k/uL RBC (3.80-5.40) m/uL Hgb (11.4-16.0) gm/dL Hct (34.0-46.0) % MCHC (31.0-37.0) g/dL RDW (11.5-15.5) % Neutrophils # (1.3-7.7) k/uL ABG pH (7.35-7.45) ABG pCO2 (35-45) mmHg ABG HCO3 (21-25) mmol/L ABG Total CO2 (19-24) mmol/L Sodium (137-145) mmol/L Chloride (98-107) mmol/L BUN (7-17) mg/dL Creatinine (0.52-1.04) mg/dL POC Glucose (mg/dL) 28 L 184 H 126 H (70-110) mg/dL Plasma Lactic Acid [place] (0.7-2.0) mmol/L 05/10/23 05/10/23 05/10/23 Range/Units 07:21 07:23 07:23 WBC 12.7 H (3.8-10.6) k/uL RBC 3.29 L (3.80-5.40) m/uL Hgb 9.8 L (11.4-16.0) gm/dL Hct 32.8 L (34.0-46.0) % MCHC 29.8 L (31.0-37.0) g/dL RDW 17.0 H (11.5-15.5) % Neutrophils # 9.3 H (1.3-7.7) k/uL ABG pH 7.32 L (7.35-7.45) ABG pCO2 51 H (35-45) mmHg ABG HCO3 26 H (21-25) mmol/L ABG Total CO2 27 H (19-24) mmol/L Sodium 136 L (137-145) mmol/L Chloride 109 H (98-107) mmol/L BUN 56 H (7-17) mg/dL Creatinine 2.83 H (0.52-1.04) mg/dL POC Glucose (mg/dL) (70-110) mg/dL Plasma Lactic Acid [place] (0.7-2.0) mmol/L 05/10/23 Range/Units 07:23 WBC (3.8-10.6) k/uL RBC (3.80-5.40) m/uL Hgb (11.4-16.0) gm/dL Hct (34.0-46.0) % MCHC (31.0-37.0) g/dL RDW (11.5-15.5) % Neutrophils # (1.3-7.7) k/uL ABG pH (7.35-7.45) ABG pCO2 (35-45) mmHg ABG HCO3 (21-25) mmol/L ABG Total CO2 (19-24) mmol/L Sodium (137-145) mmol/L Chloride (98-107) mmol/L BUN (7-17) mg/dL Creatinine (0.52-1.04) mg/dL POC Glucose (mg/dL) (70-110) mg/dL Plasma Lactic Acid [place] 0.6 L (0.7-2.0) mmol/L Microbiology - Last 24 Hours (Table) 05/06/23 10:30 Blood Culture - Preliminary Blood Assessment and Plan Plan: Assessment: 1. Acute kidney injury secondary to ATN secondary to severe sepsis. Concern for progression of underlying chronic kidney disease. Renal function better. Creatinine 2.83 today. No hydronephrosis noted on kidney ultrasound. 2. Chronic kidney disease stage IV with baseline creatinine near 2.5 secondary to diabetic kidney disease and cardiorenal syndrome. 3. Severe sepsis secondary to E. coli UTI on antibiotics. 4. Anemia of chronic kidney disease. Iron deficiency noted. Status post IV iron. 5. Metabolic acidosis secondary to acute kidney injury and IV fluids. s/p bicarb drip. Improved. 6. Hypovolemic hyponatremia. Improving. 7. Chronic kidney disease mineral bone disease maintained on calcitriol and PhosLo. Phosphorus 5.8 dated 05/05/2023. 8. Hypoglycemia. Improved. Plan: Maintain gentle IV hydration. Currently on D5 half-normal saline. Change to D5 normal saline. Encourage oral intake. Continue to monitor renal function and urine output. Add Aranesp.
[2023-05-10] MEDS ORDERED: DEXTROSE 5%-0.9% NACL 1,000 ML IV SCH ×2 (10:45→21:45)
--- NOTE | 2023-05-10 10:46 | P.CNPUL ---
History of Present Illness Consult date: 05/10/23 Requesting physician: Jeff Schumacher Reason for consult: other Chief complaint: Mental status change. History of present illness: Pulmonary consult dated 05/10/2023. 78-year-old female admitted back on May 04 for weakness. She was subsequently discovered to have a Escherichia coli urinary tract infection. We were asked to see her today, by the primary service, because apparently this m orning at about 6:30, the patient had a significant mental status change. She was noted to have a very low blood glucose, was given some dextrose. In addition, the patient was given some Narcan, without response. She was admitted with E. coli urinary tract infection was started on Rocephin. Currently, her vital signs: Blood pressure 135/61, heart rate 51, and saturations 99% on 2 L. The patient's getting dextrose with half-normal saline at 75 mL an hour. She did receive gabapentin, Klonopin, and [place], last night, and left 20/200. She got the Narcan this morning at about 6:00, 0.2 mg. The nurse that has to today, also had her yesterday. She states that the patient had a significant mental status change, as yesterday, she was quite alert and oriented. Today, she's very lethargic and somnolent, barely open her eyes or respond. White count 12.7, hemoglobin 9.8, hematocrit 32.8, with a normal platelet count. Blood gases show pO2 100, pCO2 51, and pH is 7.32. This is on 28% oxygen. Sodium 136, potassium 4.4, chlorides 109, CO2 24, BUN 56 and creatinine 2.83. Glucose was 83. Lactic acid 0.6. When we evaluated her today, she was getting an EEG. Chest x-ray shows some bibasilar infiltrates/atelectasis, or effusion. Review of Systems REVIEW OF SYSTEMS: CONSTITUTIONAL: Hypothermia. NEUROLOGIC: Acute mental status changes, beginning today at about 6:30 AM. HEENT: [ Negative.] CARDIAC: Bradycardia. PULMONARY: [Negative.] GI: [Negative.] : Escherichia coli, urinary tract infection. RHEUMATOLOGIC: [ Negative.] IMMUNOLOGIC: [ Negative.] ENDOCRINE: [Negative. ] DERMATOLOGIC: [Negative.] Past Medical History Past Medical History: Atrial Fibrillation, Chest Pain / Angina, Dementia, Diabetes Mellitus, GERD/Reflux, Hyperlipidemia, Hypertension, Musculoskeletal Disorder, Neurologic Disorder, Pneumonia, Renal Disease, Seizure Disorder, Vascular Disorder Additional Past Medical History / Comment(s): IDDM type II, paroxysmal atrial fibrilation, parkinsons, epilepsy, muscle weakness, anemia, hyperkalemia, sick sinus syndrome with pacemaker, PVD, CKD stage 3, gastritis, dysphagia, gout History of Any Multi-Drug Resistant Organisms: None Reported Past Surgical History: Pacemaker Past Anesthesia/Blood Transfusion Reactions: No Reported Reaction Type of Cardiac Device: Permanent Pacemaker Device Placement Date:: unknown Smoking Status: Never smoker - Past Family History Father Family Medical History: Unable to Obtain Mother Family Medical History: Unable to Obtain Medications and Allergies Home Medications Medication Instructions Recorded Confirmed Type Atorvastatin [Lipitor] 40 mg PO HS@2100 12/29/21 05/04/23 History Ferrous Sulfate [Iron (65 MG 325 mg PO BID@0700,1700 12/29/21 05/04/23 History Elemental)] INSULIN LISPRO (HumaLOG) [humaLOG] See Protocol SQ AC-TID 12/29/21 05/04/23 History Omeprazole 20 mg PO DAILY@0700 12/29/21 05/04/23 History Lactulose [Cephulac] 20 gm PO DAILY PRN ml 01/05/22 05/04/23 Rx Calcium Acetate [PhosLo] 667 mg PO DAILY@1200 01/19/23 05/04/23 History Furosemide [Lasix] 80 mg PO DAILY@0700 01/19/23 05/04/23 History Potassium Chloride [Klor-Con M10] 10 meq PO DAILY@0701/19/23 05/04/23 History Rivaroxaban [Xarelto] 2.5 mg PO DAILY@0700 01/19/23 05/04/23 History Sertraline [Zoloft] 25 mg PO DAILY@0701/19/23 05/04/23 History Sodium Chloride [Saline Mist] 1 spray EA NOSTRIL Q2H PRN 01/19/23 05/04/23 His tory allopurinoL [Zyloprim] 300 mg PO DAILY@0700 01/19/23 05/04/23 History bisacodyL [Dulcolax] 10 mg RECTAL DAILY PRN 01/19/23 05/04/23 History calcitrioL [Calcitriol] 0.25 mcg PO MOTUWETHSA@1200 01/19/23 05/04/23 History carvediloL [Coreg] 25 mg PO BID@0700,1700 01/19/23 05/04/23 History Acetaminophen Tab [Tylenol] 500 mg PO Q6HR PRN tab 01/23/23 05/04/23 Rx Gabapentin [Neurontin] 300 mg PO HS #3 01/23/23 05/04/23 Rx Insulin Glargine,Hum.rec.anlog 25 units SQ HS #0 01/23/23 05/04/23 Rx [Lantus Solostar Pen] clonazePAM [KlonoPIN] 0.5 mg PO HS #3 tab 01/23/23 05/04/23 Rx HYDROcodone/APAP 5-325MG [Seward 1 tab PO TID@0700,1200,2100 05/04/23 05/04/23 History 5-325] Ipratropium-Albuterol Nebulize 3 ml INHALATION RT-BID PRN 05/04/23 05/04/23 History [Duoneb 0.5 mg-3 mg/3 ml Soln] Loperamide [Imodium] 2 mg PO QID PRN 05/04/23 05/04/23 History Magnesium Oxide [Mag-Ox] 400 mg PO DAILY@1200 05/04/23 05/04/23 History Ondansetron [Zofran] 4 mg PO Q6H PRN 05/04/23 05/04/23 History Allergies Allergy/AdvReac Type Severity Reaction Status Date / Time codeine Allergy Unknown Verified 05/04/23 07:31 hydromorphone [From Dilaudid] Allergy Unknown Verified 05/04/23 07:31 acetaminophen AdvReac see comment Verified 05/04/23 07:31 Physical Exam Osteopathic Statement: *. No significant issues noted on an osteopathic structural exam other than those noted in the History and Physical/Consult. Vitals: Vital Signs Temp Pulse Resp BP BP Pulse Ox 05/10/23 09:35 91.2 F L 52 L 18 105/61 99 05/10/23 08:08 91.4 F L 56 L 18 120/69 99 05/10/23 07:43 91.8 F L 55 L 14 84/56 99 05/10/23 07:29 56 L 134/72 05/10/23 07:20 56 L 14 125/50 98 05/10/23 07:03 56 L 12 132/58 99 05/10/23 06:56 56 L 11 L 127/57 99 05/10/23 06:50 56 L 12 136/70 99 05/10/23 06:43 12 05/10/23 06:41 56 L 12 113/49 99 05/10/23 06:27 92.2 F L 60 12 110/50 97 05/10/23 04:48 67 16 139/69 99 05/10/23 02:00 82 05/09/23 23:52 82 16 115/65 100 05/09/23 20:00 98.0 F 74 16 121/62 95 05/09/23 16:00 97.4 F L 65 16 137/69 100 05/09/23 11:18 97.4 F L 65 18 142/72 97 Intake and Output 05/09/23 05/10/23 05/10/23 22:59 06:59 14:59 Intake Total 120 Output Total 400 450 Balance -280 -450 Intake: Oral 120 Output: Urine 400 450 Other: Voiding Method Indwelling Catheter Indwelling Catheter # Voids 1 No acute distress, very poorly responsive, currently on 2 L. HEENT examination is grossly unremarkable. Neck supple. Full range of motion. No adenopathy thyromegaly or neck vein distention. Cardiovascular examination reveals regular rhythm rate. S1-S2 normal. No S3 or S4. No discernible murmur noted. Heart rate 52 bpm. Lungs reveal clear breath sounds. Breath sounds are equal bilaterally. No adventitious lung sounds including wheezes rhonchi or crackles. 2 L saturation is 99%. Abdomen soft, obese, without masses. Extremities are intact. No cyanosis clubbing or edema. Skin is without rash or lesion. Neurologic examination reveals the patient to be extremely lethargic/somnolent, but she will open her eyes to painful/verbal stimuli. Results - Laboratory Findings CBC and BMP: 05/10/23 07:23 05/10/23 07:23 ABG ABG pH 7.32 (7.35-7.45) L 05/10/23 07:21 ABG pCO2 51 mmHg (35-45) H 05/10/23 07:21 ABG pO2 100 mmHg (83-108) 05/10/23 07:21 ABG O2 Saturation 97.0 % (94-97) 05/10/23 07:21 PT/INR, D-dimer PT 12.0 sec (9.0-12.0) 05/04/23 03:08 INR 1.2 (<1.2) H 05/04/23 03:08 Abnormal lab findings: Abnormal Labs 05/04/23 05/04/23 05/04/23 03:08 03:08 03:08 WBC 21.2 H RBC 2.94 L Hgb 8.8 L Hct 28.4 L MCV MCHC RDW 17.1 H Neutrophils # 17.6 H Monocytes # INR 1.2 H ABG pH ABG pCO2 ABG HCO3 ABG Total CO2 Sodium 129 L Chloride Carbon Dioxide BUN 65 H Creatinine 3.63 H Glucose 121 H POC Glucose (mg/dL) Hemoglobin A1c Plasma Lactic Acid Bakari Calcium 7.7 L Phosphorus Iron TIBC Transferrin Ferritin Total Protein 5.3 L Albumin 2.2 L Urine Appearance Urine Protein Urine Blood Ur Leukocyte Esterase Urine RBC Urine WBC Urine WBC Clumps Urine Bacteria Urine Mucus 05/04/23 05/04/23 05/04/23 06:32 06:52 09:24 WBC RBC Hgb Hct MCV MCHC RDW Neutrophils # Monocytes # INR ABG pH ABG pCO2 ABG HCO3 ABG Total CO2 Sodium 132 L Chloride Carbon Dioxide BUN 65 H Creatinine 3.70 H Glucose 111 H POC Glucose (mg/dL) 140 H Hemoglobin A1c Plasma Lactic Acid Bakari Calcium 7.7 L Phosphorus Iron TIBC Transferrin Ferritin Total Protein Albumin Urine Appearance Turbid H Urine Protein 2+ H Urine Blood Moderate H Ur Leukocyte Esterase Large H Urine RBC 39 H Urine WBC >182 H Urine WBC Clumps Many H Urine Bacteria Occasional H Urine Mucus Rare H 05/04/23 05/04/23 05/04/23 11:31 16:52 20:08 WBC RBC Hgb Hct MCV MCHC RDW Neutrophils # Monocytes # INR ABG pH ABG pCO2 ABG HCO3 ABG Total CO2 Sodium Chloride Carbon Dioxide BUN Creatinine Glucose POC Glucose (mg/dL) 112 H 234 H 155 H Hemoglobin A1c Plasma Lactic Acid Bakari Calcium Phosphorus Iron TIBC Transferrin Ferritin Total Protein Albumin Urine Appearance Urine Protein Urine Blood Ur Leukocyte Esterase Urine RBC Urine WBC Urine WBC Clumps Urine Bacteria Urine Mucus 05/05/23 05/05/23 05/05/23 06:04 08:55 08:55 WBC 11.5 H RBC 3.16 L Hgb 9.4 L Hct 32.1 L MCV 101.5 H MCHC 29.2 L RDW 17.3 H Neutrophils # 8.4 H Monocytes # INR ABG pH ABG pCO2 ABG HCO3 ABG Total CO2 Sodium Chloride Carbon Dioxide BUN Creatinine Glucose POC Glucose (mg/dL) 56 L Hemoglobin A1c 7.4 H Plasma Lactic Acid Bakari Calcium Phosphorus Iron TIBC Transferrin Ferritin Total Protein Albumin Urine Appearance Urine Protein Urine Blood Ur Leukocyte Esterase Urine RBC Urine WBC Urine WBC Clumps Urine Bacteria Urine Mucus 05/05/23 05/05/23 05/05/23 08:55 10:20 16:29 WBC RBC Hgb Hct MCV MCHC RDW Neutrophils # Monocytes # INR ABG pH ABG pCO2 ABG HCO3 ABG Total CO2 Sodium 134 L Chloride Carbon Dioxide 20 L BUN 67 H Creatinine 3.73 H Glucose 56 L POC Glucose (mg/dL) 125 H Hemoglobin A1c Plasma Lactic Acid Bakari Calcium 7.6 L Phosphorus 5.8 H Iron 33 L TIBC 169 L Transferrin 121.0 L Ferritin 560.0 H Total Protein Albumin Urine Appearance Urine Protein Urine Blood Ur Leukocyte Esterase Urine RBC Urine WBC Urine WBC Clumps Urine Bacteria Urine Mucus 05/05/23 05/06/23 05/06/23 19:59 06:03 10:30 WBC RBC Hgb Hct MCV MCHC RDW Neutrophils # Monocytes # INR ABG pH ABG pCO2 ABG HCO3 ABG Total CO2 Sodium 132 L Chloride Carbon Dioxide 16 L BUN 63 H Creatinine 3.45 H Glucose 109 H POC Glucose (mg/dL) 149 H 123 H Hemoglobin A1c Plasma Lactic Acid Bakari Calcium 7.9 L Phosphorus Iron TIBC Transferrin Ferritin Total Protein Albumin Urine Appearance Urine Protein Urine Blood Ur Leukocyte Esterase Urine RBC Urine WBC Urine WBC Clumps Urine Bacteria Urine Mucus 05/06/23 05/06/23 05/06/23 11:51 16:25 20:03 WBC RBC Hgb Hct MCV MCHC RDW Neutrophils # Monocytes # INR ABG pH ABG pCO2 ABG HCO3 ABG Total CO2 Sodium Chloride Carbon Dioxide BUN Creatinine Glucose POC Glucose (mg/dL) 116 H 124 H 159 H Hemoglobin A1c Plasma Lactic Acid Bakari Calcium Phosphorus Iron TIBC Transferrin Ferritin Total Protein Albumin Urine Appearance Urine Protein Urine Blood Ur Leukocyte Esterase Urine RBC Urine WBC Urine WBC Clumps Urine Bacteria Urine Mucus 05/07/23 05/07/23 05/07/23 06:12 08:21 08:21 WBC 13.8 H RBC 3.15 L Hgb 9.4 L Hct 31.1 L MCV MCHC 30.1 L RDW 17.0 H Neutrophils # 10.7 H Monocytes # INR ABG pH ABG pCO2 ABG HCO3 ABG Total CO2 Sodium 133 L Chloride Carbon Dioxide BUN 62 H Creatinine 3.48 H Glucose 113 H POC Glucose (mg/dL) 149 H Hemoglobin A1c Plasma Lactic Acid Bakari Calcium 8.1 L Phosphorus Iron TIBC Transferrin Ferritin Total Protein Albumin Urine Appearance Urine Protein Urine Blood Ur Leukocyte Esterase Urine RBC Urine WBC Urine WBC Clumps Urine Bacteria Urine Mucus 05/07/23 05/07/23 05/08/23 16:41 21:39 06:05 WBC RBC Hgb Hct MCV MCHC RDW Neutrophils # Monocytes # INR ABG pH ABG pCO2 ABG HCO3 ABG Total CO2 Sodium Chloride Carbon Dioxide BUN Creatinine Glucose POC Glucose (mg/dL) 114 H 163 H 114 H Hemoglobin A1c Plasma Lactic Acid Bakari Calcium Phosphorus Iron TIBC Transferrin Ferritin Total Protein Albumin Urine Appearance Urine Protein Urine Blood Ur Leukocyte Esterase Urine RBC Urine WBC Urine WBC Clumps Urine Bacteria Urine Mucus 05/08/23 05/08/23 05/08/23 07:13 07:13 11:46 WBC 14.0 H RBC 3.35 L Hgb 10.3 L Hct 33.6 L MCV 100.4 H MCHC 30.5 L RDW 17.0 H Neutrophils # 9.4 H Monocytes # 1.1 H INR ABG pH ABG pCO2 ABG HCO3 ABG Total CO2 Sodium 135 L Chloride Carbon Dioxide BUN 63 H Creatinine 3.22 H Glucose 110 H POC Glucose (mg/dL) 119 H Hemoglobin A1c Plasma Lactic Acid Bakari Calcium Phosphorus Iron TIBC Transferrin Ferritin Total Protein Albumin Urine Appearance Urine Protein Urine Blood Ur Leukocyte Esterase Urine RBC Urine WBC Urine WBC Clumps Urine Bacteria Urine Mucus 05/08/23 05/08/23 05/09/23 16:35 19:53 20:32 WBC RBC Hgb Hct MCV MCHC RDW Neutrophils # Monocytes # INR ABG pH ABG pCO2 ABG HCO3 ABG Total CO2 Sodium Chloride Carbon Dioxide BUN Creatinine Glucose POC Glucose (mg/dL) 152 H 111 H 117 H Hemoglobin A1c Plasma Lactic Acid Bakari Calcium Phosphorus Iron TIBC Transferrin Ferritin Total Protein Albumin Urine Appearance Urine Protein Urine Blood Ur Leukocyte Esterase Urine RBC Urine WBC Urine WBC Clumps Urine Bacteria Urine Mucus 05/09/23 05/10/23 05/10/23 20:35 06:13 06:15 WBC RBC Hgb Hct MCV MCHC RDW Neutrophils # Monocytes # INR ABG pH ABG pCO2 ABG HCO3 ABG Total CO2 Sodium Chloride Carbon Dioxide BUN Creatinine Glucose POC Glucose (mg/dL) 115 H 29 L 28 L Hemoglobin A1c Plasma Lactic Acid Bakari Calcium Phosphorus Iron TIBC Transferrin Ferritin Total Protein Albumin Urine Appearance Urine Protein Urine Blood Ur Leukocyte Esterase Urine RBC Urine WBC Urine WBC Clumps Urine Bacteria Urine Mucus 05/10/23 05/10/23 05/10/23 06:24 06:37 07:21 WBC RBC Hgb Hct MCV MCHC RDW Neutrophils # Monocytes # INR ABG pH 7.32 L ABG pCO2 51 H ABG HCO3 26 H ABG Total CO2 27 H Sodium Chloride Carbon Dioxide BUN Creatinine Glucose POC Glucose (mg/dL) 184 H 126 H Hemoglobin A1c Plasma Lactic Acid Bakari Calcium Phosphorus Iron TIBC Transferrin Ferritin Total Protein Albumin Urine Appearance Urine Protein Urine Blood Ur Leukocyte Esterase Urine RBC Urine WBC Urine WBC Clumps Urine Bacteria Urine Mucus 05/10/23 05/10/23 05/10/23 07:23 07:23 07:23 WBC 12.7 H RBC 3.29 L Hgb 9.8 L Hct 32.8 L MCV MCHC 29.8 L RDW 17.0 H Neutrophils # 9.3 H Monocytes # INR ABG pH ABG pCO2 ABG HCO3 ABG Total CO2 Sodium 136 L Chloride 109 H Carbon Dioxide BUN 56 H Creatinine 2.83 H Glucose POC Glucose (mg/dL) Hemoglobin A1c Plasma Lactic Acid Bakari 0.6 L Calcium Phosphorus Iron TIBC Transferrin Ferritin Total Protein Albumin Urine Appearance Urine Protein Urine Blood Ur Leukocyte Esterase Urine RBC Urine WBC Urine WBC Clumps Urine Bacteria Urine Mucus - Diagnostic Findings Chest x-ray: image reviewed Assessment and Plan Assessment: Acute mental status changes, of unclear etiology. This could relate to a primary [employer] process, medication related, or septic encephalopathy. Escherichia coli urinary tract infection. History of atrial fibrillation. History of dementia. Diabetes mellitus. History of seizure disorder. History of hypertension. History of hyperlipidemia. Gastroesophageal reflux disease. Status post pacemaker insertion for sick sinus syndrome. History of Parkinson's disease. Stage III chronic kidney disease. Plan: Plan dated 05/10/2023. The patient is seen and examined, in room 369. In addition, we spoke to the primary nurse, who is able to give us a good history as to what was going on with the patient. Labs, x-rays, and medications are reviewed. The patient is currently undergoing an EEG. If not or ready done, she'll need a computed tomography scan of the brain. The patient will be transferred to the intensive care unit, for further monitoring and management. The patient currently is on Rocephin for an Escherichia coli urinary tract infection. Gabapentin, Klonopin, and [place] are all discontinued. Vital signs are reasonable except for a heart rate of 51 bpm. She's getting D5 half-normal saline at 75 cc/h. Prognosis is guarded. Time with Patient: Greater than 30
[2023-05-10] MEDS: DEXTROSE 10% IN WATER 500 ML in EMPTY BAG 1 BAG IV SCH ×2 (10:57→21:08)
[2023-05-10 11:02] LABS: Glucose,Whole Blood 82 mg/dL (70-110)
--- NOTE | 2023-05-10 11:06 | XR ---
EXAMINATION TYPE: XR chest 1V portable DATE OF EXAM: 05/10/2023 Comparison: 01/19/2023 Clinical History: 78-year-old female PICC line in patient condition, shortness of breath Findings: Left anterior chest wall pacemaker generator with right atrial and ventricular leads. Heart mildly en larged. New [id number] pleural effusions. Interstitial prominence. Impression: New [id number] effusions with adjacent atelectasis and/or consolidation. Correlate for possibl e CHF as an etiology.
[2023-05-10] MEDS ORDERED: DARBEPOETIN ALFA 40 MCG/0.4 ML SYRINGE SQ SCH (12:00)
[2023-05-10 12:18] LABS: ALT 18 U/L (4-34); AST 33 U/L (14-36); African American GFR (CKD) 18 (>60 ml/min/1.73 sqM); Albumin 2.2 g/dL (3.5-5.0); Alkaline Phosphatase 108 U/L (38-126); Anion Gap 4 mmol/L; Blood Urea Nitrogen 58 mg/dL (7-17); Calcium 8.8 mg/dL (8.4-10.2); Carbon Dioxide 24 mmol/L (22-30); Chloride 108 mmol/L (98-107); Glucose 71 mg/dL (74-99); Magnesium 2.2 mg/dL (1.6-2.3); Non-African American GFR(CKD) 16 (>60 ml/min/1.73 sqM); Potassium 4.9 mmol/L (3.5-5.1); Sodium 136 mmol/L (137-145); Total Bilirubin 0.4 mg/dL (0.2-1.3); Total Protein 5.5 g/dL (6.3-8.2)
[2023-05-10 12:19] LABS: Glucose,Whole Blood 84 mg/dL (70-110)
--- NOTE | 2023-05-10 12:20 | CT ---
EXAMINATION TYPE: CT brain wo con DATE OF EXAM: 05/10/2023 COMPARISON: 01/18/2023 HISTORY: Condition change CT DLP: 1100.4 mGycm Automated exposure control for dose reduction was used. FINDINGS: There is a moderate generalized degenerative change with hypoattenuation in the white matter is nonsp ecific but similar to prior exam and most suggestive of remote ischemic white matter change. There is no evidence of acute intracranial hemorrhage, midline shift or mass effect. Craniocervical junction. Partially responded. Orbits are symmetric. Nasal septal deviation. Mild cervantes ges of chronic sinusitis and left mastoiditis. Intracranial atherosclerotic changes most marked invol ving the distal bilateral ICA cavernous segment and the left MCA. IMPRESSION: 1. Moderate degenerative and suspected remote ischemic white matter change. There is dense calcificat ion involving the distal left MCA compatible intracranial atherosclerotic disease. 2. No acute hemorr steve or mass effect. 3. Greater central ventricular prominence can be associated with a component of normal pressure hydro cephalus.
[2023-05-10] MEDS: CALCIUM ACETATE 667 MG TAB PO SCH ×3 (12:37→19:05)
[2023-05-10] MEDS: carvediloL 12.5 MG TAB PO SCH ×2 (12:37→19:08)
[2023-05-10] MEDS: FERROUS SULFATE 325 MG TAB PO SCH ×2 (12:37→19:05)
[2023-05-10] MEDS: INSULIN ASPART (NovoLOG) 100 UNIT/ML VIAL SQ SCH ×4 (12:38→21:15)
[2023-05-10] MEDS: APIXABAN 2.5 MG TABLET PO SCH ×2 (12:38→20:23)
[2023-05-10] MEDS: MAGNESIUM OXIDE 400 MG TAB PO SCH ×2 (12:38→20:23)
[2023-05-10] MEDS: SODIUM BICARBONATE TAB 650 MG TAB PO SCH ×2 (12:38→20:23)
[2023-05-10 12:57] LABS: Glucose,Whole Blood 113 mg/dL (70-110)
[2023-05-10 15:28] LABS: Glucose,Whole Blood 119 mg/dL (70-110)
--- NOTE | 2023-05-10 16:24 | P.CNNES ---
History of Present Illness Consult date: 05/10/23 Requesting physician: Jeff Schumacher Reason for Consult: mentation change History of Present Illness: Patient is a 78-year-old female with history of dementia, insulin-dependent diabetes, paroxysmal atrial fibrillation came to the hospital by ambulance on 05/04/2023 as a transfer from [facility] for urosepsis. Patient is a resident of alf at [facility]. She was noted to be lethargic and also had fever. Patient had a low-grade temperature of 100.0. They admitted her for 2 days and were diagnosed with E. coli UTI. Apparently patient was progressively getting worse. Her WBC count was 29,000. She was transferred to [facility] on 05/04/2023. Per nursing report, patient was doing quite well, very alert and awake yesterday. However this morning at about 6:30 AM patient was noted to have mental status change. She was found to have very low blood glucose and was given some dextrose. In addition the patient was also given some Narcan without response. Patient is also on gabapentin, Klonopin, Salem. EMS flow sheet not available in the chart, patient has developed acute mental status change. Current vitals is temperature 91.2 rectal, pulse rate 52, respirations 18, blood pressure 105/61 and saturation 99%. Patient had a solitary spike of temperature 100.0 on 05/06/2023 at 11:27 PM. Blood tests showing WBC 12.7 hemoglobin 9.8, platelets 267. PH 7.32, pCO2 51, pO2 100, sodium 136 potassium 4.4, BUN 56, creatinine 2.83. Patient's home medications include Xarelto 2.5 mg daily, Coreg, Klonopin 0.5 mg at bedtime, gabapentin 300 mg at bedtime, Salem. I spoke to patient's daughter on the phone, who provided with a history. They confirm that patient never has history of grand mal seizures. Never been diagnosed with seizure disorder. They're not sure even the diagnosis of Parkinson's disease. Never been fully diagnosed. Patient has advanced dementia, that was diagnosed in 2008. She is being bedridden since 2009. Patient has severe short-term memory loss. She would forget conversation within a minute. She forgets what she ate earlier. She forgets who visited her. She may know her daughter and son-in-law, but forgets names of the grandchildren. She would mistake a remote for cellphone and the cell phone for the remote. She also has severe depression, on Zoloft. Recently the dose was increased to 50 mg. Patient also has lot of headaches. Patient's family also mentioned that she had a stroke about in 1989 when she fell off the couch and was found on the ground, couldn't breathe and her lips were purple. She was admitted to [facility]. The family does not know any more details. Review of Systems Patient not able to provide any history or review systems, except that she admits to not having any headache, chest pain or abdominal pain. Rest of the review of systems not able to assess. ROS unobtainable: due to mental status Past Medical History Past Medical History: Atrial Fibrillation, Chest Pain / Angina, Dementia, Diabetes Mellitus, GERD/Reflux, Hyperlipidemia, Hypertension, Musculoskeletal Disorder, Neurologic Disorder, Pneumonia, Renal Disease, Vascular Disorder Additional Past Medical History / Comment(s): IDDM type II, paroxysmal atrial fibrilation, possible parkinsons (never diagnosed formally), muscle weakness, anemia, hyperkalemia, sick sinus syndrome with pacemaker, PVD, CKD stage 3, gastritis, dysphagia, gout History of Any Multi-Drug Resistant Organisms: None Reported Past Surgical History: Pacemaker Past Anesthesia/Blood Transfusion Reactions: No Reported Reaction Type of Cardiac Device: Permanent Pacemaker Device Placement Date:: unknown Smoking Status: Never smoker - Past Family History Father Family Medical History: Unable to Obtain Mother Family Medical History: Unable to Obtain Medications and Allergies Home Medications Medication Instructions Recorded Confirmed Type Atorvastatin [Lipitor] 40 mg PO HS@2100 12/29/21 05/04/23 History Ferrous Sulfate [Iron (65 MG 325 mg PO BID@0700,1700 12/29/21 05/04/23 History Elemental)] INSULIN LISPRO (HumaLOG) [humaLOG] See Protocol SQ AC-TID 12/29/21 05/04/23 History Omeprazole 20 mg PO DAILY@0700 12/29/21 05/04/23 History Lactulose [Cephulac] 20 gm PO DAILY PRN ml 01/05/22 05/04/23 Rx Calcium Acetate [PhosLo] 667 mg PO DAILY@1200 01/19/23 05/04/23 History Furosemide [Lasix] 80 mg PO DAILY@0700 01/19/23 05/04/23 History Potassium Chloride [Klor-Con M10] 10 meq PO DAILY@0700 01/19/23 05/04/23 History Rivaroxaban [Xarelto] 2.5 mg PO DAILY@0700 01/19/23 05/04/23 History Sertraline [Zoloft] 25 mg PO DAILY@0700 01/19/23 05/04/23 History Sodium Chloride [Saline Mist] 1 spray EA NOSTRIL Q2H PRN 01/19/23 05/04/23 History allopurinoL [Zyloprim] 300 mg PO DAILY@0700 01/19/23 05/04/23 History bisacodyL [Dulcolax] 10 mg RECTAL DAILY PRN 01/19/23 05/04/23 History calcitrioL [Calcitriol] 0.25 mcg PO MOTUWETHSA@1200 01/19/23 05/04/23 History carvediloL [Coreg] 25 mg PO BID@0700,1700 01/19/23 05/04/23 History Acetaminophen Tab [Tylenol] 500 mg PO Q6HR PRN tab 01/23/23 05/04/23 Rx Gabapentin [Neurontin] 300 mg PO HS #3 01/23/23 05/04/23 Rx Insulin Glargine,Hum.rec.anlog 25 units SQ HS #0 01/23/23 05/04/23 Rx [Lantus Solostar Pen] clonazePAM [KlonoPIN] 0.5 mg PO HS #3 tab 01/23/23 05/04/23 Rx HYDROcodone/APAP 5-325MG [Salem 1 tab PO TID@0700,1200,2100 05/04/23 05/04/23 History 5-325] Ipratropium-Albuterol Nebulize 3 ml INHALATION RT-BID PRN 05/04/23 05/04/23 History [Duoneb 0.5 mg-3 mg/3 ml Soln] Loperamide [Imodium] 2 mg PO QID PRN 05/04/23 05/04/23 History Magnesium Oxide [Mag-Ox] 400 mg PO DAILY@1200 05/04/23 05/04/23 History Ondansetron [Zofran] 4 mg PO Q6H PRN 05/04/23 05/04/23 History Allergies Allergy/AdvReac Type Severity Reaction Status Date / Time codeine Allergy Unknown Verified 05/04/23 07:31 hydromorphone [From Dilaudid] Allergy Unknown Verified 05/04/23 07:31 acetaminophen AdvReac see comment Verified 05/04/23 07:31 Physical Examination - Vital Signs Vital Signs: Vital Signs Temp Pulse Resp BP BP Pulse Ox 05/10/23 09:35 91.2 F L 52 L 18 105/61 99 05/10/23 08:08 91.4 F L 56 L 18 120/69 99 05/10/23 07:43 91.8 F L 55 L 14 84/56 99 05/10/23 07:29 56 L 134/72 05/10/23 07:20 56 L 14 125/50 98 05/10/23 07:03 56 L 12 132/58 99 05/10/23 06:56 56 L 11 L 127/57 99 05/10/23 06:50 56 L 12 136/70 99 05/10/23 06:43 12 05/10/23 06:41 56 L 12 113/49 99 05/10/23 06:27 92.2 F L 60 12 110/50 97 05/10/23 04:48 67 16 139/69 99 05/10/23 02:00 82 05/09/23 23:52 82 16 115/65 100 05/09/23 20:00 98.0 F 74 16 121/62 95 05/09/23 16:00 97.4 F L 65 16 137/69 100 05/09/23 11:18 97.4 F L 65 18 142/72 97 Intake and Output 05/09/23 05/10/23 05/10/23 22:59 06:59 14:59 Intake Total 120 Output Total 400 450 Balance -280 -450 Intake: Oral 120 Output: Urine 400 450 Other: Voiding Method Indwelling Catheter Indwelling Catheter # Voids 1 Patient is a an elderly female, who appears somewhat obtunded. Patient is keeping her eyes closed, but does open the eyes slightly to calling her name loudly. She does say "yes" sporadically. After repeated alerting with examination below, patient did finally much more. She knows her name, thinks it is April and the year is 2021. She could not tell the current city or state she is in. Speech was limited but clear with no aphasia or dysarthria. No paraphasic errors were noted. Attention, concentration is limited and fund of knowledge is also limited. On cranial nerve examination, pupils are equal, round and reacting to light, visual garland could not be tested reliably. Extraocular muscles are intact with no nystagmus. Face is symmetric, tongue protrudes to the midline. Her tongue is dry. Palatal elevation and sensation, facial sensations could not be tested. Shoulder shrug could not be tested. On muscle strength testing, patient squeeze the hands mildly equally about 3+. She was able to withdraw arms equally to painful stimuli bilaterally. She moaned painful stimuli bilaterally in the lower limbs. He did not withdraw her extremities. Deep tendon reflexes are symmetric 1+ to 2+ and plantars are flat. Sensory to touch could not be assessed, but painful stimuli as mentioned above. Cerebellar functions could not be tested because patient was not cooperating. Tone and bulk of muscles normal. No obvious seizure-like activity noted. Gait deferred.. On general examination, there is no carotid bruit or murmur, S1-S2 audible. Chest is clear on consultation. Abdomen is soft nontender. No organomegaly, bowel sounds present. Peripheral pulses are present. Mild edema. Results - Laboratory Findings CBC and BMP: 05/10/23 07:23 05/10/23 11:13 Abnormal Lab Findings: Abnormal Labs 05/04/23 05/04/23 05/04/23 03:08 03:08 03:08 WBC 21.2 H RBC 2.94 L Hgb 8.8 L Hct 28.4 L MCV MCHC RDW 17.1 H Neutrophils # 17.6 H Monocytes # INR 1.2 H ABG pH ABG pCO2 ABG HCO3 ABG Total CO2 Sodium 129 L Chloride Carbon Dioxide BUN 65 H Creatinine 3.63 H Glucose 121 H POC Glucose (mg/dL) Hemoglobin A1c Plasma Lactic Acid Bakari Calcium 7.7 L Phosphorus Iron TIBC Transferrin Ferritin Total Protein 5.3 L Albumin 2.2 L Urine Appearance Urine Protein Urine Blood Ur Leukocyte Esterase Urine RBC Urine WBC Urine WBC Clumps Urine Bacteria Urine Mucus 05/04/23 05/04/23 05/04/23 06:32 06:52 09:24 WBC RBC Hgb Hct MCV MCHC RDW Neutrophils # Monocytes # INR ABG pH ABG pCO2 ABG HCO3 ABG Total CO2 Sodium 132 L Chloride Carbon Dioxide BUN 65 H Creatinine 3.70 H Glucose 111 H POC Glucose (mg/dL) 140 H Hemoglobin A1c Plasma Lactic Acid Bakari Calcium 7.7 L Phosphorus Iron TIBC Transferrin Ferritin Total Protein Albumin Urine Appearance Turbid H Urine Protein 2+ H Urine Blood Moderate H Ur Leukocyte Esterase Large H Urine RBC 39 H Urine WBC >182 H Urine WBC Clumps Many H Urine Bacteria Occasional H Urine Mucus Rare H 05/04/23 05/04/23 05/04/23 11:31 16:52 20:08 WBC RBC Hgb Hct MCV MCHC RDW Neutrophils # Monocytes # INR ABG pH ABG pCO2 ABG HCO3 ABG Total CO2 Sodium Chloride Carbon Dioxide BUN Creatinine Glucose POC Glucose (mg/dL) 112 H 234 H 155 H Hemoglobin A1c Plasma Lactic Acid Bakari Calcium Phosphorus Iron TIBC Transferrin Ferritin Total Protein Albumin Urine Appearance Urine Protein Urine Blood Ur Leukocyte Esterase Urine RBC Urine WBC Urine WBC Clumps Urine Bacteria Urine Mucus 05/05/23 05/05/23 05/05/23 06:04 08:55 08:55 WBC 11.5 H RBC 3.16 L Hgb 9.4 L Hct 32.1 L MCV 101.5 H MCHC 29.2 L RDW 17.3 H Neutrophils # 8.4 H Monocytes # INR ABG pH ABG pCO2 ABG HCO3 ABG Total CO2 Sodium Chloride Carbon Dioxide BUN Creatinine Glucose POC Glucose (mg/dL) 56 L Hemoglobin A1c 7.4 H Plasma Lactic Acid Bakari Calcium Phosphorus Iron TIBC Transferrin Ferritin Total Protein Albumin Urine Appearance Urine Protein Urine Blood Ur Leukocyte Esterase Urine RBC Urine WBC Urine WBC Clumps Urine Bacteria Urine Mucus 05/05/23 05/05/23 05/05/23 08:55 10:20 16:29 WBC RBC Hgb Hct MCV MCHC RDW Neutrophils # Monocytes # INR ABG pH ABG pCO2 ABG HCO3 ABG Total CO2 Sodium 134 L Chloride Carbon Dioxide 20 L BUN 67 H Creatinine 3.73 H Glucose 56 L POC Glucose (mg/dL) 125 H Hemoglobin A1c Plasma Lactic Acid Bakari Calcium 7.6 L Phosphorus 5.8 H Iron 33 L TIBC 169 L Transferrin 121.0 L Ferritin 560.0 H Total Protein Albumin Urine Appearance Urine Protein Urine Blood Ur Leukocyte Esterase Urine RBC Urine WBC Urine WBC Clumps Urine Bacteria Urine Mucus 09/10/2605/06/23 05/06/23 19:59 06:03 10:30 WBC RBC Hgb Hct MCV MCHC RDW Neutrophils # Monocytes # INR ABG pH ABG pCO2 ABG HCO3 ABG Total CO2 Sodium 132 L Chloride Carbon Dioxide 16 L BUN 63 H Creatinine 3.45 H Glucose 109 H POC Glucose (mg/dL) 149 H 123 H Hemoglobin A1c Plasma Lactic Acid Bakari Calcium 7.9 L Phosphorus Iron TIBC Transferrin Ferritin Total Protein Albumin Urine Appearance Urine Protein Urine Blood Ur Leukocyte Esterase Urine RBC Urine WBC Urine WBC Clumps Urine Bacteria Urine Mucus 05/06/23 05/06/23 05/06/23 11:51 16:25 20:03 WBC RBC Hgb Hct MCV MCHC RDW Neutrophils # Monocytes # INR ABG pH ABG pCO2 ABG HCO3 ABG Total CO2 Sodium Chloride Carbon Dioxide BUN Creatinine Glucose POC Glucose (mg/dL) 116 H 124 H 159 H Hemoglobin A1c Plasma Lactic Acid Bakari Calcium Phosphorus Iron TIBC Transferrin Ferritin Total Protein Albumin Urine Appearance Urine Protein Urine Blood Ur Leukocyte Esterase Urine RBC Urine WBC Urine WBC Clumps Urine Bacteria Urine Mucus 05/07/23 05/07/23 05/07/23 06:12 08:21 08:21 WBC 13.8 H RBC 3.15 L Hgb 9.4 L Hct 31.1 L MCV MCHC 30.1 L RDW 17.0 H Neutrophils # 10.7 H Monocytes # INR ABG pH ABG pCO2 ABG HCO3 ABG Total CO2 Sodium 133 L Chloride Carbon Dioxide BUN 62 H Creatinine 3.48 H Glucose 113 H POC Glucose (mg/dL) 149 H Hemoglobin A1c Plasma Lactic Acid Bakari Calcium 8.1 L Phosphorus Iron TIBC Transferrin Ferritin Total Protein Albumin Urine Appearance Urine Protein Urine Blood Ur Leukocyte Esterase Urine RBC Urine WBC Urine WBC Clumps Urine Bacteria Urine Mucus 05/07/23 05/07/23 05/08/23 16:41 21:39 06:05 WBC RBC Hgb Hct MCV MCHC RDW Neutrophils # Monocytes # INR ABG pH ABG pCO2 ABG HCO3 ABG Total CO2 Sodium Chloride Carbon Dioxide BUN Creatinine Glucose POC Glucose (mg/dL) 114 H 163 H 114 H Hemoglobin A1c Plasma Lactic Acid Bakari Calcium Phosphorus Iron TIBC Transferrin Ferritin Total Protein Albumin Urine Appearance Urine Protein Urine Blood Ur Leukocyte Esterase Urine RBC Urine WBC Urine WBC Clumps Urine Bacteria Urine Mucus 09/05/23 09/05/23 09/05/23 07:13 07:13 11:46 WBC 14.0 H RBC 3.35 L Hgb 10.3 L Hct 33.6 L MCV 100.4 H MCHC 30.5 L RDW 17.0 H Neutrophils # 9.4 H Monocytes # 1.1 H INR ABG pH ABG pCO2 ABG HCO3 ABG Total CO2 Sodium 135 L Chloride Carbon Dioxide BUN 63 H Creatinine 3.22 H Glucose 110 H POC Glucose (mg/dL) 119 H Hemoglobin A1c Plasma Lactic Acid Bakari Calcium Phosphorus Iron TIBC Transferrin Ferritin Total Protein Albumin Urine Appearance Urine Protein Urine Blood Ur Leukocyte Esterase Urine RBC Urine WBC Urine WBC Clumps Urine Bacteria Urine Mucus 05/08/23 05/08/23 05/09/23 16:35 19:53 20:32 WBC RBC Hgb Hct MCV MCHC RDW Neutrophils # Monocytes # INR ABG pH ABG pCO2 ABG HCO3 ABG Total CO2 Sodium Chloride Carbon Dioxide BUN Creatinine Glucose POC Glucose (mg/dL) 152 H 111 H 117 H Hemoglobin A1c Plasma Lactic Acid Bakari Calcium Phosphorus Iron TIBC Transferrin Ferritin Total Protein Albumin Urine Appearance Urine Protein Urine Blood Ur Leukocyte Esterase Urine RBC Urine WBC Urine WBC Clumps Urine Bacteria Urine Mucus 05/09/23 05/10/23 05/10/23 20:35 06:13 06:15 WBC RBC Hgb Hct MCV MCHC RDW Neutrophils # Monocytes # INR ABG pH ABG pCO2 ABG HCO3 ABG Total CO2 Sodium Chloride Carbon Dioxide BUN Creatinine Glucose POC Glucose (mg/dL) 115 H 29 L 28 L Hemoglobin A1c Plasma Lactic Acid Bakari Calcium Phosphorus Iron TIBC Transferrin Ferritin Total Protein Albumin Urine Appearance Urine Protein Urine Blood Ur Leukocyte Esterase Urine RBC Urine WBC Urine WBC Clumps Urine Bacteria Urine Mucus 05/10/23 05/10/23 05/10/23 06:24 06:37 07:21 WBC RBC Hgb Hct MCV MCHC RDW Neutrophils # Monocytes # INR ABG pH 7.32 L ABG pCO2 51 H ABG HCO3 26 H ABG Total CO2 27 H Sodium Chloride Carbon Dioxide BUN Creatinine Glucose POC Glucose (mg/dL) 184 H 126 H Hemoglobin A1c Plasma Lactic Acid Bakari Calcium Phosphorus Iron TIBC Transferrin Ferritin Total Protein Albumin Urine Appearance Urine Protein Urine Blood Ur Leukocyte Esterase Urine RBC Urine WBC Urine WBC Clumps Urine Bacteria Urine Mucus 05/10/23 05/10/23 05/10/23 07:23 07:23 07:23 WBC 12.7 H RBC 3.29 L Hgb 9.8 L Hct 32.8 L MCV MCHC 29.8 L RDW 17.0 H Neutrophils # 9.3 H Monocytes # INR ABG pH ABG pCO2 ABG HCO3 ABG Total CO2 Sodium 136 L Chloride 109 H Carbon Dioxide BUN 56 H Creatinine 2.83 H Glucose POC Glucose (mg/dL) Hemoglobin A1c Plasma Lactic Acid Bakari 0.6 L Calcium Phosphorus Iron TIBC Transferrin Ferritin Total Protein Albumin Urine Appearance Urine Protein Urine Blood Ur Leukocyte Esterase Urine RBC Urine WBC Urine WBC Clumps Urine Bacteria Urine Mucus Assessment and Plan Assessment: * Acute altered mental status, likely due to hypoglycemia with blood sugar of 28 noted at 6:13 AM today. She probably also has underlying metabolic encephalopathy due to reasons mentioned below. * Acute hypothermia, rule out urosepsis. * E. coli UTI * History of atrial fibrillation, currently on Xarelto, now switched to Eliquis * Dementia, severe degree. Patient bedridden. * Type 1 diabetes * History of pacemaker placement for sick sinus syndrome * Chronic renal disease, stage III * Hypertension * Hyperlipidemia Plan: * CT head was performed, which revealed moderate degenerative and suspected remote ischemic white matter change. There is dense calcification involving the distal left MCA compatible with intracranial atherosclerotic disease. No acute hemorrhage or mass effect. Greater central ventricular prominence can be associated with component of normal pressure hydrocephalus. I personally reviewed CT head, and feels there is no evidence of hydrocephalus. Patient has severe frontal and temporal lobe atrophy, with associated ex vacuo dilation of lateral ventricles. Patient does have significant dementia. * EEG was performed, which revealed background slowing of severe degree, suggestive of generalized cerebral dysfunction as can be seen with toxic me tabolic encephalopathy or related to diffuse structural brain abnormality. Clinical correlation is recommended. No epileptiform activity was seen. * No indication for antiepileptic medication. Patient never has any history of seizures. * Stat ammonia level checked was normal 15 * Patient is hypothermic. Rule out sepsis. Patient currently on ceftriaxone 2 g every 24 hours. * Avoid further episodes of hypoglycemia. * Patient has atrial fibrillation, currently on Eliquis 2.5 mg twice a day. Continue Lipitor 40 mg. * Spoke to family members in detail as mentioned in HPI. * Neurology will follow. Thank you for the consult. Time with Patient: Greater than 30
--- NOTE | 2023-05-10 17:55 | P.PN ---
Progress Note - Text Progress Note Date: 05/10/23 78-year-old female she is a resident at alf in [facility]. She was found to have signs of lethargy and also fever. She was transferred to [facility] for further evaluation. Patient allegedly a low-grade temperature 100.0. She seemed to be lethargic according to staff. The medic for at least 2 days and progressively she look like she was getting worse. She had labs drawn showing a white count of 29. Patient was seen at urinary tract infection were there is concern that patient was having a significant UTI. Patient is a poor historian. Patient present illness Limited due to limited barrier. Patient denies any pain at this time. patient did have a positive UA with large leukocyte esterase more than 22 WBC white count 21.2 however the left shift and did have a creatinine of 3.70 liver exams are normal Patient remains on IV cefepime per ID recommendations; urine culture growing gram-negative bacilli; final culture and sensitivities pending - Lab review shows improved white blood count of 11.5, sodium is improved at 134; BUN/creatinine remains elevated at 67/3.73; renal ultrasound is completed and is unremarkable; nephrology on board 05/06/2023 patient is seen and evaluated in room at bedside; remains afebrile patient is breathing comfortably on 2 L nasal cannula oxygen denies any chest pain shortness of breath or cough no nausea vomiting no abdominal pain no diarrhea. Patient white count is down to 11.5 creatinine down to 3.45 from 3.73 yesterday; preliminary urine culture reveals gram-negative bacilli. patient presented to outside facility with weakness lethargy patient did have elevated white count positive UA concerning for a symptomatic urinary tract infection likely from enteric gram-negative pathogen keeping in mind the patient is a alf resident we will need to cover for the resistant gram-negativ e. patient with renal insufficiency high risk of nephrotoxicity. patient with positive blood culture at the outside facility gram-positive cocci in chain questionably contaminant blood cultures will be repeated to document clearance to hold on adding vancomycin as the patient white count is trending down and the patient did have renal insufficiency. patient to continue cefepime while awaiting further urine culture to finalize and monitor clinical course closely May 07: Patient seen by [facility] hospitalists. May 08: I assumed care of the patient today. Laying in bed. Appetite fair. Diet. On IV ceftriaxone. Blood culture from outside facility positive but felt to be contaminant as per ID. May 09: Laying in bed. Tired. Oral intake fluctuating. On IV ceftriaxone . Spoke to patient's Dr. Carrasco on the phone. At baseline patient is nonambulatory. I did explain that patient's overall prognosis is guarded. At this point he wished for her to continue to be full code. May 10: Patient overnight took a turn for the worse. Became rather lethargic. Became severely hypothermic. Rectal temperature went down to 91.2. Aleshia hugger was given. Patient became hypoglycemic laying down to about 20. Dextrose drip was ordered. Became more lethargic. Computed tomography scan of the brain was ordered.-showed chronic changes. No focal findings. Neurology was consulted. EEG was ordered. Spoke to Dr. Weems from ICU. Patient is moved to the ICU. I spoke to patient's daughter at length. Suggested DO NOT RESUSCITATE. Prognosis not good. Daughter will talk to her and other family members about DO NOT RESUSCITATE. I also attached about hospice. Given the poor quality of life. Check sticks are reviewed by me showed right basilar infiltrate/effusion. Total time spent today about 70 minutes Active Medications Acetaminophen (Acetaminophen Tab 325 Mg Tab) 650 mg PO Q6HR PRN PRN Reason: Mild Pain or Fever > 100.5 Last Admin: 05/06/23 23:30 Dose: 650 mg Allopurinol (Allopurinol 300 Mg Tab) 300 mg PO DAILY@0700 [facility] Last Admin: 05/09/23 07:00 Dose: 300 mg Apixaban (Apixaban 2.5 Mg Tablet) 2.5 mg PO BID [facility]; Protocol Last Admin: 05/10/23 12:38 Dose: Not Given Atorvastatin Calcium (Atorvastatin 40 Mg Tab) 40 mg PO HS@2100 [facility] Last Admin: 05/09/23 21:41 Dose: 40 mg Bisacodyl (Bisacodyl 10 Mg Supp) 10 mg RECTAL DAILY PRN PRN Reason: Constipation Calcitriol (Calcitriol 0.25 Mcg Cap) 0.25 mcg PO MOTUWETHSA@1200 [facility] Last Admin: 05/09/23 12:18 Dose: 0.25 mcg Calcium Acetate (Calcium Acetate 667 Mg Tab) 667 mg PO TID-W/MEALS [facility] Last Admin: 05/10/23 17:39 Dose: Not Given Carvedilol (Carvedilol 12.5 Mg Tab) 25 mg PO BID@0700,1700 [facility] Last Admin: 05/10/23 12:37 Dose: Not Given Darbepoetin Peng (Darbepoetin Peng 40 Mcg/0.4 Ml Syringe) 40 mcg SQ Q7D [facility] Dextrose/Water (Dextrose 50% Syringe 50 Ml) 25 ml IVP PER PROTOCOL PRN; Protocol PRN Reason: Hypoglycemia Dextrose/Water (Dextrose 50% Syringe 50 Ml) 50 ml IVP PER PROTOCOL PRN; Protocol PRN Reason: Hypoglycemia Last Admin: 05/10/23 06:18 Dose: 50 ml Ferrous Sulfate (Ferrous Sulfate 325 Mg Tab) 325 mg PO BID@0700,1700 [facility] Last Admin: 05/10/23 12:37 Dose: Not Given Ceftriaxone Sodium 2 gm/ (Sodium Chloride) 50 mls @ 100 mls/hr IVPB Q24HR [facility]; Protocol Last Admin: 05/09/23 10:30 Dose: 100 mls/hr Dextrose/Water 500 ml/ IV (Solution) 500 mls @ 50 mls/hr IV .Q10H [facility] Last Admin: 05/10/23 10:57 Dose: 50 mls/hr Dextrose/Sodium Chloride (Dextrose 5%-Ns Iv Soln) 1,000 mls @ 50 mls/hr IV .Q20H [facility] Last Admin: 05/10/23 17:39 Dose: Not Given Insulin Aspart (Insulin Aspart (Novolog) 100 Unit/Ml Vial) 0 unit SQ [facility]; Protocol Last Admin: 05/10/23 17:40 Dose: Not Given Insulin Detemir (Insulin Detemir (Levemir) 100 Unit/Ml Syr) 25 unit SQ [facility] Last Admin: 05/09/23 21:40 Dose: 25 unit Magnesium Oxide (Magnesium Oxide 400 Mg Tab) 400 mg PO BID [facility] Last Admin: 05/10/23 12:38 Dose: Not Given Naloxone HCl (Naloxone 0.4 Mg/Ml 1 Ml Vial) 0.2 mg IV Q2M PRN PRN Reason: Opioid Reversal Last Admin: 05/10/23 06:43 Dose: 0.2 mg Pantoprazole Sodium (Pantoprazole 40 Mg Tablet) 40 mg PO DAILY@0700 [facility] Last Admin: 05/09/23 07:00 Dose: 40 mg Sodium Bicarbonate (Sodium Bicarbonate Tab 650 Mg Tab) 650 mg PO BID [facility] Last Admin: 05/10/23 12:38 Dose: Not Given Past medical history to include: Diabetes, paroxysmal atrial fibrillation, Parkinson's, epilepsy, hyperlipidemia, anxiety, depression, sick sinus syndrome with a pacemaker, PAD, CK D stage III, gout, dementia, GERD, non-ambulatory Social history: lives at [facility]. Needs a Nba lift a wheelchair. Incontinent. She can feed herself. No history of smoking alcohol known. Physical examination: VITAL SIGNS: 91.8, 55, 14, 80/56, 99% 2 L this morning GENERAL: ., Reclining in bed, lethargic, but answer occasional question EYES: Pupils equal. Conjunctiva normal. HEENT: External appearance of nose and ears normal, oral cavity dry mucous membrane NECK: JVD unable to assess; masses not palpable. HEART: Heart sounds irregular; some edema. LUNGS:[ Respiratory rate increased; decreased breath sounds. ABDOMEN: Soft, nontender, liver spleen not palpable, no masses palpable. PSYCH: Answering occasional questions . Lethargic MUSCULOSKELETAL:No Clubbing/cyanosis;muscles-grossly intact. Evidence of OA. Bilateral foot drop INVESTIGATIONS, reviewed in the clinical context: May 10: Sodium 136 potassium 4.9 BUN 58 creatinine 2.77 albumin 2.2 May 08: White count 14 hemoglobin 10.3 platelets 209 dose potassium 4.8 BUN 63 creatinine 2.2 to Urine culture: E. coli Previous labs: Creatinine 3.86 on 01/23/2023 Assessment and plan: -Severe hypothermia. I see with severe hypoglycemia from decreased oral intake.: New diagnosis Aleshia hugger. Patient moved to ICU. -Severe hypoglycemia.: New diagnosis Dextrose drip. -Acute UTI with sepsis. From E. coli.: IV ceftriaxone -Sepsis secondary to UTI IV fluids. Antibiotics -Probable contaminant blood culture -Acute kidney injury, suspect ATN.: Secondary to sepsis. followed by nephrology. -Chronic kidney disease stage IV secondary to diabetic kidney disease and cardiorenal syndrome. Baseline creatinine around 2.5 -Acute delirium metabolic encephalopathy UTI from presentation, presenting ini tially as lethargy. Worsening -Depression and anxiety Zoloft. Klonopin -Diabetes mellitus type 2, chronically on insulin Levemir... Follow Accu-Cheks with sliding scale insulin -Diabetic peripheral neuropathy Neurontin 300 mg daily at bedtime -Major cognitive impairment/dementia -Paroxysmal atrial fibrillation Eliquis -sick sinus syndrome with a pacemaker -Chronic medical debility, - baseline needs Nba lift. Fall precautions -Essential hypertension Coreg 25 mg by mouth twice a day -Chronic gout Allopurinol 300 mg a day -Hyperlipidemia Lipitor 40 mg daily at bedtime -Chronic kidney disease stage III likely from diabetic nephropathy and hypertensive nephrosclerosis Renal ultrasound showing bilateral cortical thinning. -Chronic pain syndrome [place] 5 one tablet 3 times a day -Full code Advance care planning: Discussed at length with patient daughter on the telephone. It was discussed that patient's chronic medical debility. Bed bound. Advanced dementia. Has not really been ordered to conversation. Chronic foot drop. CK D. Now decreased oral intake. Also feeding tube was discussed. At this point patient's daughter does not want the same. She will come to see the patient tomorrow and decide about CODE STATUS. Currently to remain full code. Time spent for this about 25 minutes.
[2023-05-10 18:44] LABS: Glucose,Whole Blood 126 mg/dL (70-110)
[2023-05-10] MEDS: PANTOPRAZOLE 40 MG TABLET PO SCH (19:05)
[2023-05-10] MEDS: allopurinoL 300 MG TAB PO SCH (19:05)
[2023-05-10 19:44] LABS: Appearance,Urine Clear (Clear); Bilirubin,Urine Negative (Negative); Blood,Urine Trace (Negative); Color,Urine Light Yellow; Glucose,Urine (UA) Trace (Negative); Ketones,Urine Negative (Negative); Leukocyte Esterase,Urine Moderate (Negative); Mucus,Urine Rare /hpf; Nitrite,Urine Negative (Negative); Protein,Urine 2+ (Negative); RBC,Urine 2 /hpf (0-5); Specific Gravity,Urine 1.015 (1.001-1.035); Squamous Epithelial Cell,Urine <1 /hpf (0-4); Urobilinogen,Urine <2.0 mg/dL (<2.0); WBC,Urine 11 /hpf (0-5)
[2023-05-10 19:49] LABS: Glucose,Whole Blood 139 mg/dL (70-110)
[2023-05-10] MEDS: ATORVASTATIN 40 MG TAB PO SCH (20:23)
[2023-05-10] MEDS: ACETAMINOPHEN TAB 325 MG TAB PO PRN (20:24)
[2023-05-10] MEDS: INSULIN DETEMIR (LEVEMIR) 100 UNIT/ML SYR SQ SCH (21:15)
[2023-05-10 21:16] LABS: Glucose,Whole Blood 122 mg/dL (70-110)
--- NOTE | 2023-05-10 21:46 | EEG ---
DATE OF SERVICE: 05/10/2023 ELECTROENCEPHALOGRAM REPORT PREAMBLE: This is an 78-year-old female with altered mental status. EEG FINDINGS: This is a 21-channel digital EEG recorded with video component, utilizing 10/20 international system with referential and bipolar montages. Background consists of poorly developed and regulated, mixed frequencies in moderate amplitude, diffuse slowing in theta and delta range. Occasional periods of generalized suppression were also seen. Different stages of sleep were not seen. No focal or generalized epileptiform activity was seen. The photic stimulation was not performed. IMPRESSION: This is an abnormal EEG due to background slowing of moderate to severe degree. This is suggestive of generalized cerebral dysfunction as can be seen with toxic metabolic encephalopathy or related to diffuse structural brain abnormality. Clinical correlation is recommended. No epileptiform activity was seen. MMODL / IJN: [id number] / MTDD
[2023-05-11 00:09] LABS: Glucose,Whole Blood 207 mg/dL (70-110)
[2023-05-11] MEDS ORDERED: INSULIN ASPART (NovoLOG) 100 UNIT/ML VIAL SQ ONE (01:29)
[2023-05-11 01:34] LABS: Glucose,Whole Blood 188 mg/dL (70-110)
[2023-05-11] MEDS: HYDROcodone/APAP 5-325MG 1 EACH TAB PO SCH (02:18)
[2023-05-11] MEDS: ACETAMINOPHEN TAB 325 MG TAB PO PRN ×3 (03:56→20:22)
[2023-05-11] MEDS ORDERED: HYDROcodone/APAP 5-325MG 1 EACH TAB PO SCH (06:00)
[2023-05-11 06:06] LABS: Glucose,Whole Blood 203 mg/dL (70-110)
[2023-05-11] MEDS: carvediloL 12.5 MG TAB PO SCH ×2 (06:13→16:48)
[2023-05-11] MEDS: PANTOPRAZOLE 40 MG TABLET PO SCH (06:14)
[2023-05-11] MEDS: FERROUS SULFATE 325 MG TAB PO SCH ×2 (06:14→16:47)
[2023-05-11] MEDS: allopurinoL 300 MG TAB PO SCH (06:17)
[2023-05-11] MEDS: INSULIN ASPART (NovoLOG) 100 UNIT/ML VIAL SQ SCH ×4 (06:32→21:35)
[2023-05-11] MEDS: CALCIUM ACETATE 667 MG TAB PO SCH ×3 (06:33→16:48)
[2023-05-11 07:17] LABS: African American GFR (CKD) 19 (>60 ml/min/1.73 sqM); Anion Gap 6 mmol/L; Blood Urea Nitrogen 51 mg/dL (7-17); C Reactive Protein 5.3 mg/dL (<1.0); Calcium 8.3 mg/dL (8.4-10.2); Carbon Dioxide 19 mmol/L (22-30); Chloride 107 mmol/L (98-107); Glucose 180 mg/dL (74-99); Magnesium 2.1 mg/dL (1.6-2.3); Non-African American GFR(CKD) 17 (>60 ml/min/1.73 sqM); Potassium 4.6 mmol/L (3.5-5.1); Sodium 132 mmol/L (137-145)
[2023-05-11 07:33] LABS: Anisocytosis Slight; HGB 9.5 gm/dL (11.4-16.0); Hypochromasia Marked; MCH 30.4 pg (25.0-35.0); MCHC 30.8 g/dL (31.0-37.0); MCV 98.6 fL (80.0-100.0); Macrocytosis Slight; Mean Platelet Volume 9.9; Platelet Count 222 k/uL (150-450); RBC 3.14 m/uL (3.80-5.40); RDW 17.5 % (11.5-15.5); WBC 11.5 k/uL (3.8-10.6)
[2023-05-11] MEDS: APIXABAN 2.5 MG TABLET PO SCH ×2 (08:20→20:21)
[2023-05-11] MEDS: MAGNESIUM OXIDE 400 MG TAB PO SCH ×2 (08:20→20:21)
[2023-05-11] MEDS: SODIUM BICARBONATE TAB 650 MG TAB PO SCH ×2 (08:20→20:21)
[2023-05-11 08:55] LABS: Eosinophils # (M) 0.58 k/uL (0-0.7); Lymphocytes # (M) 2.19 k/uL (1.0-4.8); Metamyelocytes # (M) 0.12 k/uL (0); Metamyelocytes % 1 %; Monocytes # (M) 0.46 k/uL (0-1.0); Neutrophils % (M) 73 %; Nucleated Red Blood Cells 0 /100 WBC (0-0); Total Cells Counted 200
[2023-05-11 10:10] LABS: Glucose,Whole Blood 161 mg/dL (70-110)
[2023-05-11] MEDS ORDERED: FUROSEMIDE 10 MG/ML 4 ML VIAL IV STA (10:26)
--- NOTE | 2023-05-11 10:27 | P.PN ---
Subjective Patient is seen in follow-up for acute kidney injury on chronic kidney disease. Patient has chronic kidney disease stage IV with baseline creatinine near 2.5. Etiology is diabetic kidney disease and cardiorenal syndrome. Currently resting in bed. Being treated for UTI. Renal function better. Has Akhtar catheter. Urine output 25-30 mL an hour. Mentation better. Vital signs are stable. General: No acute distress. HEENT: Head exam is unremarkable. On nasal cannula. LUNGS: No audible rhonchi or wheezes. HEART: Rate and Rhythm are regular. ABDOMEN: Nontender. EXTREMITITES: 1+ edema. Objective - Vital Signs Vital signs: Vital Signs Temp 97.9 F 05/11/23 08:00 Pulse 70 05/11/23 10:00 Resp 12 05/11/23 10:00 BP 141/70 05/11/23 10:00 Pulse Ox 94 L 05/11/23 10:18 FiO2 21 05/11/23 10:18 Intake & Output 05/10/23 05/11/23 05/11/23 18:59 06:59 18:59 Intake Total 350 920 350 Output Total 640 237 100 Balance -290 683 250 Weight 90.718 kg 92.9 kg Intake: IV 350 850 75 Dextrose 10% in Water 500 350 100 ml In Empty Bag 1 bag @ 50 mls/hr IV .Q10H [facility] Rx #:[id number] Dextrose 5%-0.45% NaCl 1, 750 75 000 ml @ 75 mls/hr IV . [id number] [facility] Rx#:[id number] Intake, IV Titration 275 Amount Dextrose 5%-0.9% NaCl 1, 225 000 ml @ 75 mls/hr IV . [id number] [facility] Rx#:[id number] cefTRIAXone 2 gm In 50 Sodium Chloride 0.9% 50 ml @ 100 mls/hr IVPB Q24HR [facility] Rx#:[id number] Oral 70 Output: Urine 640 237 100 Other: Voiding Method Indwelling Catheter Indwelling Catheter # Bowel Movements 1 - Labs CBC & Chem 7: 05/11/23 06:20 05/11/23 06:20 Labs: Abnormal Lab Results - Last 24 Hours (Table) 05/10/23 05/10/23 05/10/23 Range/Units 11:13 12:55 15:27 WBC (3.8-10.6) k/uL RBC (3.80-5.40) m/uL Hgb (11.4-16.0) gm/dL Hct (34.0-46.0) % MCHC (31.0-37.0) g/dL RDW (11.5-15.5) % Neutrophils # (Manual) (1.3-7.7) k/uL Metamyelocytes # (Man) (0) k/uL Sodium 136 L (137-145) mmol/L Chloride 108 H (98-107) mmol/L Carbon Dioxide (22-30) mmol/L BUN 58 H (7-17) mg/dL Creatinine 2.77 H (0.52-1.04) mg/dL Glucose 71 L (74-99) mg/dL POC Glucose (mg/dL) 113 H 119 H (70-110) mg/dL Calcium (8.4-10.2) mg/dL C-Reactive Protein (<1.0) mg/dL Total Protein 5.5 L (6.3-8.2) g/dL Albumin 2.2 L (3.5-5.0) g/dL Urine Protein (Negative) Urine Glucose (UA) (Negative) Urine Blood (Negative) Ur Leukocyte Esterase (Negative) Urine WBC (0-5) /hpf Urine Mucus (None) /hpf 05/10/23 05/10/23 05/10/23 Range/Units 18:33 18:46 19:47 WBC (3.8-10.6) k/uL RBC (3.80-5.40) m/uL Hgb (11.4-16.0) gm/dL Hct (34.0-46.0) % MCHC (31.0-37.0) g/dL RDW (11.5-15.5) % Neutrophils # (Manual) (1.3-7.7) k/uL Metamyelocytes # (Man) (0) k/uL Sodium (137-145) mmol/L Chloride (98-107) mmol/L Carbon Dioxide (22-30) mmol/L BUN (7-17) mg/dL Creatinine (0.52-1.04) mg/dL Glucose (74-99) mg/dL POC Glucose (mg/dL) 126 H 139 H (70-110) mg/dL Calcium (8.4-10.2) mg/dL C-Reactive Protein (<1.0) mg/dL Total Protein (6.3-8.2) g/dL Albumin (3.5-5.0) g/dL Urine Protein 2+ H (Negative) Urine Glucose (UA) Trace H (Negative) Urine Blood Trace H (Negative) Ur Leukocyte Esterase Moderate H (Negative) Urine WBC 11 H (0-5) /hpf Urine Mucus Rare H (None) /hpf 05/10/23 05/10/23 05/11/23 Range/Units 21:14 23:56 01:33 WBC (3.8-10.6) k/uL RBC (3.80-5.40) m/uL Hgb (11.4-16.0) gm/dL Hct (34.0-46.0) % MCHC (31.0-37.0) g/dL RDW (11.5-15.5) % Neutrophils # (Manual) (1.3-7.7) k/uL Metamyelocytes # (Man) (0) k/uL Sodium (137-145) mmol/L Chloride (98-107) mmol/L Carbon Dioxide (22-30) mmol/L BUN (7-17) mg/dL Creatinine (0.52-1.04) mg/dL Glucose (74-99) mg/dL POC Glucose (mg/dL) 122 H 207 H 188 H (70-110) mg/dL Calcium (8.4-10.2) mg/dL C-Reactive Protein (<1.0) mg/dL Total Protein (6.3-8.2) g/dL Albumin (3.5-5.0) g/dL Urine Protein (Negative) Urine Glucose (UA) (Negative) Urine Blood (Negative) Ur Leukocyte Esterase (Negative) Urine WBC (0-5) /hpf Urine Mucus (None) /hpf 05/11/23 05/11/23 05/11/23 Range/Units 06:04 06:20 06:20 WBC 11.5 H (3.8-10.6) k/uL RBC 3.14 L (3.80-5.40) m/uL Hgb 9.5 L (11.4-16.0) gm/dL Hct 31.0 L (34.0-46.0) % MCHC 30.8 L (31.0-37.0) g/dL RDW 17.5 H (11.5-15.5) % Neutrophils # (Manual) 8.40 H (1.3-7.7) k/uL Metamyelocytes # (Man) 0.12 H (0) k/uL Sodium 132 L (137-145) mmol/L Chloride (98-107) mmol/L Carbon Dioxide 19 L (22-30) mmol/L BUN 51 H (7-17) mg/dL Creatinine 2.61 H (0.52-1.04) mg/dL Glucose 180 H (74-99) mg/dL POC Glucose (mg/dL) 203 H (70-110) mg/dL Calcium 8.3 L (8.4-10.2) mg/dL C-Reactive Protein 5.3 H (<1.0) mg/dL Total Protein (6.3-8.2) g/dL Albumin (3.5-5.0) g/dL Urine Protein (Negative) Urine Glucose (UA) (Negative) Urine Blood (Negative) Ur Leukocyte Esterase (Negative) Urine WBC (0-5) /hpf Urine Mucus (None) /hpf 05/11/23 Range/Units 10:06 WBC (3.8-10.6) k/uL RBC (3.80-5.40) m/uL Hgb (11.4-16.0) gm/dL Hct (34.0-46.0) % MCHC (31.0-37.0) g/dL RDW (11.5-15.5) % Neutrophils # (Manual) (1.3-7.7) k/uL Metamyelocytes # (Man) (0) k/uL Sodium (137-145) mmol/L Chloride (98-107) mmol/L Carbon Dioxide (22-30) mmol/L BUN (7-17) mg/dL Creatinine (0.52-1.04) mg/dL Glucose (74-99) mg/dL POC Glucose (mg/dL) 161 H (70-110) mg/dL Calcium (8.4-10.2) mg/dL C-Reactive Protein (<1.0) mg/dL Total Protein (6.3-8.2) g/dL Albumin (3.5-5.0) g/dL Urine Protein (Negative) Urine Glucose (UA) (Negative) Urine Blood (Negative) Ur Leukocyte Esterase (Negative) Urine WBC (0-5) /hpf Urine Mucus (None) /hpf Assessment and Plan Plan: Assessment: 1. Acute kidney injury secondary to ATN secondary to severe sepsis. Concern for progression of underlying chronic kidney disease. Renal function better. Creatinine 2.61 today. No hydronephrosis noted on kidney ultrasound. 2. Chronic kidney disease stage IV with baseline creatinine near 2.5 secondary to diabetic kidney disease and cardiorenal syndrome. 3. Severe sepsis secondary to E. coli UTI on antibiotics. 4. Anemia of chronic kidney disease. Iron deficiency noted. Status post IV iron. On Aranesp. 5. Metabolic acidosis secondary to acute kidney injury and IV fluids. s/p bicarb drip. On po bicarb. 6. Hypovolemic hyponatremia. Maintained on fluids. No hypervolemic. 7. Chronic kidney disease mineral bone disease maintained on calcitriol and PhosLo. Phosphorus 5.8 dated 05/05/2023. 8. Hypoglycemia. Improved. Plan: Hep-Lock IV fluids. Lasix 40 mg IV once today. Encourage oral intake. Continue to monitor renal function and urine output.
--- NOTE | 2023-05-11 10:41 | P.PN ---
Subjective Progress Note Date: 05/11/23 Principal diagnosis: Mental status changes, urinary tract infection. Pulmonary consult dated 05/10/2023. 78-year-old female admitted back on May 04 for weakness. She was mchugh bsequently discovered to have a Escherichia coli urinary tract infection. We were asked to see her today, by the primary service, because apparently this morning at about 6:30, the patient had a significant mental status change. She was noted to have a very low blood glucose, was given some dextrose. In addition, the patient was given some Narcan, without response. She was admitted with E. coli urinary tract infection was started on Rocephin. Currently, her vital signs: Blood pressure 135/61, heart rate 51, and saturations 99% on 2 L. The patient's getting dextrose with half-normal saline at 75 mL an hour. She did receive gabapentin, Klonopin, and [place], last night, and left 20/200. She got the Narcan this morning at about 6:00, 0.2 mg. The nurse that has to today, also had her yesterday. She states that the patient had a significant mental status change, as yesterday, she was quite alert and oriented. Today, she's very lethargic and somnolent, barely open her eyes or respond. White count 12.7, hemoglobin 9.8, hematocrit 32.8, with a normal platelet count. Blood gases show pO2 100, pCO2 51, and pH is 7.32. This is on 28% oxygen. Sodium 136, potassium 4.4, chlorides 109, CO2 24, BUN 56 and creatinine 2.83. Glucose was 83. Lactic acid 0.6. When we evaluated her today, she was getting an EEG. Chest x-ray shows some bibasilar infiltrates/atelectasis, or effusion. Progress note dated 05/11/2023. 78-year-old female that was on consultation yesterday. She was admitted on May 04 for weakness. She was discovered to have an Escherichia coli urinary tract infection. Apparently yesterday, her nurse, stated that there was acute mental status changes, hypotension and bradycardia, and hypothermia. For that reason, we are asked to see her, and I decided to move her to the intensive care unit, for all of those reasons, but mostly because of mental status changes. Her EEG showed diffuse slowing consistent with metabolic/toxic encephalopathy. The computed tomography scan of the brain showed nothing acute. Today she seen in the intensive care unit, room 254. She's had an uneventful night. She is on room air. She's getting dextrose was saline at 75 mL an hour. The patient is currently on Rocephin for her urinary tract infection. She appears not have any distress and denies any specific complaints. Her mental status is much improved since yesterday. White count 11.5, hemoglobin 9.5, hematocrit 31, with a normal platelet count. Sodium 132, potassium 4.6, chlorides 107, CO2 19, BUN 51 and creatinine 2.61. These electrolytes are consistent with benign anion gap metabolic acidosis, secondary to chronic kidney disease. Objective - Vital Signs Vital signs: Vital Signs Temp 97.9 F 05/11/23 08:00 Pulse 70 05/11/23 10:00 Resp 12 05/11/23 10:00 BP 141/70 05/11/23 10:00 Pulse Ox 94 L 05/11/23 10:18 FiO2 21 05/11/23 10:18 Intake & Output 05/10/23 05/11/23 05/11/23 18:59 06:59 18:59 Intake Total 350 920 350 Output Total 640 237 100 Balance -290 683 250 Weight 90.718 kg 92.9 kg Intake: IV 350 850 75 Dextrose 10% in Water 500 350 100 ml In Empty Bag 1 bag @ 50 mls/hr IV .Q10H HONG Rx #:[id number] Dextrose 5%-0.45% NaCl 1, 750 75 000 ml @ 75 mls/hr IV . [id number] HONG Rx#:[id number] Intake, IV Titration 275 Amount Dextrose 5%-0.9% NaCl 1, 225 000 ml @ 75 mls/hr IV . [id number] HONG Rx#:[id number] cefTRIAXone 2 gm In 50 Sodium Chloride 0.9% 50 ml @ 100 mls/hr IVPB Q24HR HONG Rx#:[id number] Oral 70 Output: Urine 640 237 100 Other: Voiding Method Indwelling Catheter Indwelling Catheter # Bowel Movements 1 - Exam No acute distress, much more awake and alert, currently on room air. The patient responds appropriately. This is a significant improvement compared to yesterday's exam. HEENT examination is grossly unremarkable. Neck supple. Full range of motion. No adenopathy thyromegaly or neck vein distention. Cardiovascular examination reveals regular rhythm rate. S1-S2 normal. No S3 or S4. No discernible murmur noted. Heart rate 70 bpm. Lungs reveal clear breath sounds. Breath sounds are equal bilaterally. No adventitious lung sounds including wheezes rhonchi or crackles. Room air saturation is 95%. Abdomen soft, obese, without masses. Extremities are intact. No cyanosis clubbing or edema. Skin is without rash or lesion. Neurologic examination reveals the patient to be much more alert and awake. - Labs CBC & Chem 7: 05/11/23 06:20 05/11/23 06:20 Labs: Abnormal Lab Results - Last 24 Hours (Table) 05/10/23 05/10/23 05/10/23 Range/Units 11:13 12:55 15:27 WBC (3.8-10.6) k/uL RBC (3.80-5.40) m/uL Hgb (11.4-16.0) gm/dL Hct (34.0-46.0) % MCHC (31.0-37.0) g/dL RDW (11.5-15.5) % Neutrophils # (Manual) (1.3-7.7) k/uL Metamyelocytes # (Man) (0) k/uL Sodium 136 L (137-145) mmol/L Chloride 108 H (98-107) mmol/L Carbon Dioxide (22-30) mmol/L BUN 58 H (7-17) mg/dL Creatinine 2.77 H (0.52-1.04) mg/dL Glucose 71 L (74-99) mg/dL POC Glucose (mg/dL) 113 H 119 H (70-110) mg/dL Calcium (8.4-10.2) mg/dL C-Reactive Protein (<1.0) mg/dL Total Protein 5.5 L (6.3-8.2) g/dL Albumin 2.2 L (3.5-5.0) g/dL Urine Protein (Negative) Urine Glucose (UA) (Negative) Urine Blood (Negative) Ur Leukocyte Esterase (Negative) Urine WBC (0-5) /hpf Urine Mucus (None) /hpf 05/10/23 05/10/23 05/10/23 Range/Units 18:33 18:46 19:47 WBC (3.8-10.6) k/uL RBC (3.80-5.40) m/uL Hgb (11.4-16.0) gm/dL Hct (34.0-46.0) % MCHC (31.0-37.0) g/dL RDW (11.5-15.5) % Neutrophils # (Manual) (1.3-7.7) k/uL Metamyelocytes # (Man) (0) k/uL Sodium (137-145) mmol/L Chloride (98-107) mmol/L Carbon Dioxide (22-30) mmol/L BUN (7-17) mg/dL Creatinine (0.52-1.04) mg/dL Glucose (74-99) mg/dL POC Glucose (mg/dL) 126 H 139 H (70-110) mg/dL Calcium (8.4-10.2) mg/dL C-Reactive Protein (<1.0) mg/dL Total Protein (6.3-8.2) g/dL Albumin (3.5-5.0) g/dL Urine Protein 2+ H (Negative) Urine Glucose (UA) Trace H (Negative) Urine Blood Trace H (Negative) Ur Leukocyte Esterase Moderate H (Negative) Urine WBC 11 H (0-5) /hpf Urine Mucus Rare H (None) /hpf 05/10/23 05/10/23 05/11/23 Range/Units 21:14 23:56 01:33 WBC (3.8-10.6) k/uL RBC (3.80-5.40) m/uL Hgb (11.4-16.0) gm/dL Hct (34.0-46.0) % MCHC (31.0-37.0) g/dL RDW (11.5-15.5) % Neutrophils # (Manual) (1.3-7.7) k/uL Metamyelocytes # (Man) (0) k/uL Sodium (137-145) mmol/L Chloride (98-107) mmol/L Carbon Dioxide (22-30) mmol/L BUN (7-17) mg/dL Creatinine (0.52-1.04) mg/dL Glucose (74-99) mg/dL POC Glucose (mg/dL) 122 H 207 H 188 H (70-110) mg/dL Calcium (8.4-10.2) mg/dL C-Reactive Protein (<1.0) mg/dL Total Protein (6.3-8.2) g/dL Albumin (3.5-5.0) g/dL Urine Protein (Negative) Urine Glucose (UA) (Negative) Urine Blood (Negative) Ur Leukocyte Esterase (Negative) Urine WBC (0-5) /hpf Urine Mucus (None) /hpf 05/11/23 05/11/23 05/11/23 Range/Units 06:04 06:20 06:20 WBC 11.5 H (3.8-10.6) k/uL RBC 3.14 L (3.80-5.40) m/uL Hgb 9.5 L (11.4-16.0) gm/dL Hct 31.0 L (34.0-46.0) % MCHC 30.8 L (31.0-37.0) g/dL RDW 17.5 H (11.5-15.5) % Neutrophils # (Manual) 8.40 H (1.3-7.7) k/uL Metamyelocytes # (Man) 0.12 H (0) k/uL Sodium 132 L (137-145) mmol/L Chloride (98-107) mmol/L Carbon Dioxide 19 L (22-30) mmol/L BUN 51 H (7-17) mg/dL Creatinine 2.61 H (0.52-1.04) mg/dL Glucose 180 H (74-99) mg/dL POC Glucose (mg/dL) 203 H (70-110) mg/dL Calcium 8.3 L (8.4-10.2) mg/dL C-Reactive Protein 5.3 H (<1.0) mg/dL Total Protein (6.3-8.2) g/dL Albumin (3.5-5.0) g/dL Urine Protein (Negative) Urine Glucose (UA) (Negative) Urine Blood (Negative) Ur Leukocyte Esterase (Negative) Urine WBC (0-5) /hpf Urine Mucus (None) /hpf 05/11/23 Range/Units 10:06 WBC (3.8-10.6) k/uL RBC (3.80-5.40) m/uL Hgb (11.4-16.0) gm/dL Hct (34.0-46.0) % MCHC (31.0-37.0) g/dL RDW (11.5-15.5) % Neutrophils # (Manual) (1.3-7.7) k/uL Metamyelocytes # (Man) (0) k/uL Sodium (137-145) mmol/L Chloride (98-107) mmol/L Carbon Dioxide (22-30) mmol/L BUN (7-17) mg/dL Creatinine (0.52-1.04) mg/dL Glucose (74-99) mg/dL POC Glucose (mg/dL) 161 H (70-110) mg/dL Calcium (8.4-10.2) mg/dL C-Reactive Protein (<1.0) mg/dL Total Protein (6.3-8.2) g/dL Albumin (3.5-5.0) g/dL Urine Protein (Negative) Urine Glucose (UA) (Negative) Urine Blood (Negative) Ur Leukocyte Esterase (Negative) Urine WBC (0-5) /hpf Urine Mucus (None) /hpf Assessment and Plan Assessment: Acute mental status changes, of unclear etiology. This could relate to a primary CHO[employer] MEMBER process, medication related, or septic encephalopathy. The patient's EEG was consistent with moderate to severe encephalopathy, likely secondary to metabolic/toxic reasons. The patient's mental status, as of May 11, is much improved. Escherichia coli urinary tract infection. History of atrial fibrillation. History of dementia. Diabetes mellitus. History of seizure disorder. History of hypertension. History of hyperlipidemia. Gastroesophageal reflux disease. Status post pacemaker insertion for sick sinus syndrome. History of Parkinson's disease. Stage III chronic kidney disease. Plan: Plan dated 05/10/2023. The patient is seen and examined, in room 369. In addition, we spoke to the primary nurse, who is able to give us a good history as to what was going on with the patient. Labs, x-rays, and medications are reviewed. The patient is currently undergoing an EEG. If not or ready done, she'll need a computed tomography scan of the brain. The patient will be transferred to the intensive care unit, for further monitoring and management. The patient currently is on Rocephin for an Escherichia coli urinary tract infection. Gabapentin, Klonopin, and [place] are all discontinued. Vital signs are reasonable except for a heart rate of 51 bpm. She's getting D5 half-normal saline at 75 cc/h. Prognosis is guarded. Plan dated 05/11/2023. The patient is seen and examined in room 254. Her mental status is much improved. She is awake and alert. She continues on Rocephin for her Escherichia coli urinary tract infection. The patient is also getting dextrose with saline at 75 mL an hour. Narcotics are discontinued as was the gabapentin and Klonopin. We will continue to follow make recommendations along the way. The results of the CAT scan and EEG were reviewed. Chest x-ray from yesterday was also reviewed. Prognosis is guarded. The patient is stable enough to be transferred out to the floor. Time with Patient: Greater than 30
[2023-05-11 11:56] LABS: Glucose,Whole Blood 156 mg/dL (70-110)
--- NOTE | 2023-05-11 14:35 | P.PN ---
Progress Note - Text Progress Note Date: 05/11/23 78-year-old female she is a resident at halfway in [facility]. She was found to have signs of lethargy and also fever. She was transferred to [facility] for further evaluation. Patient allegedly a low-grade temperature 100.0. She seemed to be lethargic according to staff. The medic for at least 2 days and progressively she look like she was getting worse. She had labs drawn showing a white count of 29. Patient was seen at urinary tract infection were there is concern that patient was having a significant UTI. Patient is a poor historian. Patient present illness Limited due to limited barrier. Patient denies any pain at this time. patient did have a positive UA with large leukocyte esterase more than 22 WBC white count 21.2 however the left shift and did have a creatinine of 3.70 liver exams are normal Patient remains on IV cefepime per ID recommendations; urine culture growing gram-negative bacilli; final culture and sensitivities pending - Lab review shows improved white blood count of 11.5, sodium is improved at 134; BUN/creatinine remains elevated at 67/3.73; renal ultrasound is completed and is unremarkable; nephrology on board 05/06/2023 patient is seen and evaluated in room at bedside; remains afebrile patient is breathing comfortably on 2 L nasal cannula oxygen denies any chest pain shortness of breath or cough no nausea vomiting no abdominal pain no diarrhea. Patient white count is down to 11.5 creatinine down to 3.45 from 3.73 yesterday; preliminary urine culture reveals gram-negative bacilli. patient presented to outside facility with weakness lethargy patient did have elevated white count positive UA concerning for a symptomatic urinary tract infection likely from enteric gram-negative pathogen keeping in mind the patient is a halfway resident we will need to cover for the resistant gram-negativ e. patient with renal insufficiency high risk of nephrotoxicity. patient with positive blood culture at the outside facility gram-positive cocci in chain questionably contaminant blood cultures will be repeated to document clearance to hold on adding vancomycin as the patient white count is trending down and the patient did have renal insufficiency. patient to continue cefepime while awaiting further urine culture to finalize and monitor clinical course closely May 07: Patient seen by [facility] hospitalists. May 08: I assumed care of the patient today. Laying in bed. Appetite fair. Diet. On IV ceftriaxone. Blood culture from outside facility positive but felt to be contaminant as per ID. May 09: Laying in bed. Tired. Oral intake fluctuating. On IV ceftriaxone . Spoke to patient's Dr. Carrasco on the phone. At baseline patient is nonambulatory. I did explain that patient's overall prognosis is guarded. At this point he wished for her to continue to be full code. May 10: Patient overnight took a turn for the worse. Became rather lethargic. Became severely hypothermic. Rectal temperature went down to 91.2. Aleshia hugger was given. Patient became hypoglycemic laying down to about 20. Dextrose drip was ordered. Became more lethargic. Computed tomography scan of the brain was ordered.-showed chronic changes. No focal findings. Neurology was consulted. EEG was ordered. Spoke to Dr. Weems from ICU. Patient is moved to the ICU. I spoke to patient's daughter at length. Suggested DO NOT RESUSCITATE. Prognosis not good. Daughter will talk to her and other family members about DO NOT RESUSCITATE. I also attached about hospice. Given the poor quality of life. Check sticks are reviewed by me showed right basilar infiltrate/effusion. Total time spent today about 70 minutes Advance care planning: Discussed at length with patient daughter on the telephone. It was discussed that patient's chronic medical debility. Bed bound. Advanced dementia. Has not really been ordered to conversation. Chronic foot drop. CK D. Now decreased oral intake. Also feeding tube was discussed. At this point patient's daughter does not want the same. She will come to see the patient tomorrow and decide about CODE STATUS. Currently to remain full code. Time spent for this about 25 minutes. 8 : ICU. Doing better. More awake. Able to answer simple questions. Dextrose drip discontinued. Accu-Cheks went up to 200. Eating some. IV fluids discontinued. Per nephrology given 1 dose of Lasix. Breathing stable. Levemir was held last night. Resume at 14 units daily at bedtime Active Medications Acetaminophen (Acetaminophen Tab 325 Mg Tab) 650 mg PO Q6HR PRN PRN Reason: Mild Pain or Fever > 100.5 Last Admin: 05/11/23 10:17 Dose: 650 mg Allopurinol (Allopurinol 300 Mg Tab) 300 mg PO DAILY@0700 HONG Last Admin: 05/11/23 06:17 Dose: 300 mg Apixaban (Apixaban 2.5 Mg Tablet) 2.5 mg PO BID [facility]; Protocol Last Admin: 05/11/23 08:20 Dose: 2.5 mg Atorvastatin Calcium (Atorvastatin 40 Mg Tab) 40 mg PO HS@2100 [facility] Last Admin: 05/10/23 20:23 Dose: 40 mg Bisacodyl (Bisacodyl 10 Mg Supp) 10 mg RECTAL DAILY PRN PRN Reason: Constipation Calcitriol (Calcitriol 0.25 Mcg Cap) 0.25 mcg PO MOTUWETHSA@1200 [facility] Last Admin: 05/10/23 19:05 Dose: Not Given Calcium Acetate (Calcium Acetate 667 Mg Tab) 667 mg PO TID-W/MEALS [facility] Last Admin: 05/11/23 12:02 Dose: 667 mg Carvedilol (Carvedilol 12.5 Mg Tab) 25 mg PO BID@0700,1700 [facility] Last Admin: 05/11/23 06:13 Dose: 25 mg Darbepoetin Peng (Darbepoetin Peng 40 Mcg/0.4 Ml Syringe) 40 mcg SQ Q7D [facility] Last Admin: 05/10/23 19:05 Dose: Not Given Dextrose/Water (Dextrose 50% Syringe 50 Ml) 25 ml IVP PER PROTOCOL PRN; Protocol PRN Reason: Hypoglycemia Dextrose/Water (Dextrose 50% Syringe 50 Ml) 50 ml IVP PER PROTOCOL PRN; Protocol PRN Reason: Hypoglycemia Last Admin: 05/10/23 06:18 Dose: 50 ml Ferrous Sulfate (Ferrous Sulfate 325 Mg Tab) 325 mg PO BID@0700,1700 [facility] Last Admin: 05/11/23 06:14 Dose: 325 mg Ceftriaxone Sodium 2 gm/ (Sodium Chloride) 50 mls @ 100 mls/hr IVPB Q24HR [facility]; Protocol Last Admin: 05/11/23 08:19 Dose: 100 mls/hr Insulin Aspart (Insulin Aspart (Novolog) 100 Unit/Ml Vial) 0 unit SQ [facility]; Protocol Last Admin: 05/11/23 12:02 Dose: 2 unit Insulin Detemir (Insulin Detemir (Levemir) 100 Unit/Ml Syr) 25 unit SQ [facility] Last Admin: 05/10/23 21:15 Dose: Not Given Magnesium Oxide (Magnesium Oxide 400 Mg Tab) 400 mg PO BID [facility] Last Admin: 05/11/23 08:20 Dose: 400 mg Naloxone HCl (Naloxone 0.4 Mg/Ml 1 Ml Vial) 0.2 mg IV Q2M PRN PRN Reason: Opioid Reversal Last Admin: 05/10/23 06:43 Dose: 0.2 mg Nystatin (Nystatin 100,000 Unit/Gm Powd 15 Gm) 1 applic TOPICAL BID [facility]; Protocol Pantoprazole Sodium (Pantoprazole 40 Mg Tablet) 40 mg PO DAILY@0700 [facility] Last Admin: 05/11/23 06:14 Dose: 40 mg Sodium Bicarbonate (Sodium Bicarbonate Tab 650 Mg Tab) 650 mg PO BID [facility] Last Admin: 05/11/23 08:20 Dose: 650 mg Past medical history to include: Diabetes, paroxysmal atrial fibrillation, Parkinson's, epilepsy, hyperlipidemia, anxiety, depression, sick sinus syndrome with a pacemaker, PAD, CK D stage III, gout, dementia, GERD, non-ambulatory Social history: lives at [facility]. Needs a Nba lift a wheelchair. Incontinent. She can feed herself. No history of smoking alcohol known. Physical examination: VITAL SIGNS: 97.9, 70, 20, 141/70, 95% room air GENERAL: ., Reclining in bed, more awake answering simple questions EYES: Pupils equal. Conjunctiva normal. HEENT: External appearance of nose and ears normal, oral cavity dry mucous membrane NECK: JVD unable to assess; masses not palpable. HEART: Heart sounds irregular; some edema. LUNGS:[ Respiratory rate increased; decreased breath sounds. ABDOMEN: Soft, nontender, liver spleen not palpable, no masses palpable. PSYCH: Answering simple questions . Bit more awake MUSCULOSKELETAL:No Clubbing/cyanosis;muscles-grossly intact. Evidence of OA. Bilateral foot drop INVESTIGATIONS, reviewed in the clinical context: May 11: White count 11.5 hemoglobin 9.5 platelets 222 sodium 132 potassium 4.6 BUN 51 and creatinine 2.61 May 10: Sodium 136 potassium 4.9 BUN 58 creatinine 2.77 albumin 2.2 May 08: White count 14 hemoglobin 10.3 platelets 209 dose potassium 4.8 BUN 63 creatinine 2.2 to Urine culture: E. coli Previous labs: Creatinine 3.86 on 01/23/2023 Assessment and plan: -Severe hypothermia. I see with severe hypoglycemia from decreased oral intake.: Improved Aleshia hugger. -Severe hypoglycemia.: Improved Dextrose drip-discontinued. Patient started to eat. -Acute UTI with sepsis. From E. coli.: IV ceftriaxone -Sepsis secondary to UTI IV fluids. Antibiotics -Probable contaminant blood culture -Acute kidney injury, suspect ATN.: Secondary to sepsis. followed by nephrology. -Chronic kidney disease stage IV secondary to diabetic kidney disease and cardiorenal syndrome. Baseline creatinine around 2.5 -Acute delirium metabolic encephalopathy UTI from presentation, presenting initially as lethargy. Improving -Depression and anxiety Zoloffunmilayo. Bconopin -Diabetes mellitus type 2, chronically on insulin Levemir had last night. Resume today at 14 units.... Follow Accu-Cheks with sliding scale insulin -Diabetic peripheral neuropathy Neurontin 300 mg daily at bedtime -Major cognitive impairment/dementia -Paroxysmal atrial fibrillation Eliquis -sick sinus syndrome with a pacemaker -Chronic medical debility, - baseline needs Nba lift. Fall precautions -Essential hypertension Coreg 25 mg by mouth twice a day -Chronic gout Allopurinol 300 mg a day -Hyperlipidemia Lipitor 40 mg daily at bedtime -Chronic kidney disease stage III likely from diabetic nephropathy and hypertensive nephrosclerosis Renal ultrasound showing bilateral cortical thinning. -Chronic pain syndrome [place] 5 one tablet 3 times a day -Full code
--- NOTE | 2023-05-11 14:53 | P.PN ---
Subjective Progress Note Date: 05/11/23 patient was seen for a follow-up. Patient is laying comfortably in the bed. Offers no complaints. Patient states that she has sometimes headache but no headache at this time. Denies dizziness. Patient tells me that she has 3 sons and 2 daughters. Her mentation appears to be back to baseline. Objective - Vital Signs Vital signs: Vital Signs Temp 97.9 F 05/11/23 08:00 Pulse 70 05/11/23 10:00 Resp 12 05/11/23 10:00 BP 141/70 05/11/23 10:00 Pulse Ox 94 L 05/11/23 10:18 FiO2 21 05/11/23 10:18 Intake & Output 05/10/23 05/11/23 05/11/23 18:59 06:59 18:59 Intake Total 350 920 350 Output Total 640 237 100 Balance -290 683 250 Weight 90.718 kg 92.9 kg Intake: IV 350 850 75 Dextrose 10% in Water 500 350 100 ml In Empty Bag 1 bag @ 50 mls/hr IV .Q10H HONG Rx #:[id number] Dextrose 5%-0.45% NaCl 1, 750 75 000 ml @ 75 mls/hr IV . [id number] HONG Rx#:[id number] Intake, IV Titration 275 Amount Dextrose 5%-0.9% NaCl 1, 225 000 ml @ 75 mls/hr IV . [id number] HONG Rx#:[id number] cefTRIAXone 2 gm In 50 Sodium Chloride 0.9% 50 ml @ 100 mls/hr IVPB Q24HR HONG Rx#:[id number] Oral 70 Output: Urine 640 237 100 Other: Voiding Method Indwelling Catheter Indwelling Catheter Indwelling Catheter # Bowel Movements 1 - Exam patient is alert and awake. She could not tell the current month or the year. She says that she is in [facility]. Patient says that her one daughter lives in [place] and the other one in [place]. Her speech and language functions are normal. No seizure-like activity. Examination is unchanged otherwise, with normal mental status. - Labs CBC & Chem 7: 05/11/23 06:20 05/11/23 06:20 Labs: Abnormal Lab Results - Last 24 Hours (Table) 05/10/23 05/10/23 05/10/23 Range/Units 15:27 18:33 18:46 WBC (3.8-10.6) k/uL RBC (3.80-5.40) m/uL Hgb (11.4-16.0) gm/dL Hct (34.0-46.0) % MCHC (31.0-37.0) g/dL RDW (11.5-15.5) % Neutrophils # (Manual) (1.3-7.7) k/uL Metamyelocytes # (Man) (0) k/uL Sodium (137-145) mmol/L Carbon Dioxide (22-30) mmol/L BUN (7-17) mg/dL Creatinine (0.52-1.04) mg/dL Glucose (74-99) mg/dL POC Glucose (mg/dL) 119 H 126 H (70-110) mg/dL Calcium (8.4-10.2) mg/dL C-Reactive Protein (<1.0) mg/dL Urine Protein 2+ H (Negative) Urine Glucose (UA) Trace H (Negative) Urine Blood Trace H (Negative) Ur Leukocyte Esterase Moderate H (Negative) Urine WBC 11 H (0-5) /hpf Urine Mucus Rare H (None) /hpf 05/10/23 05/10/23 05/10/23 Range/Units 19:47 21:14 23:56 WBC (3.8-10.6) k/uL RBC (3.80-5.40) m/uL Hgb (11.4-16.0) gm/dL Hct (34.0-46.0) % MCHC (31.0-37.0) g/dL RDW (11.5-15.5) % Neutrophils # (Manual) (1.3-7.7) k/uL Metamyelocytes # (Man) (0) k/uL Sodium (137-145) mmol/L Carbon Dioxide (22-30) mmol/L BUN (7-17) mg/dL Creatinine (0.52-1.04) mg/dL Glucose (74-99) mg/dL POC Glucose (mg/dL) 139 H 122 H 207 H (70-110) mg/dL Calcium (8.4-10.2) mg/dL C-Reactive Protein (<1.0) mg/dL Urine Protein (Negative) Urine Glucose (UA) (Negative) Urine Blood (Negative) Ur Leukocyte Esterase (Negative) Urine WBC (0-5) /hpf Urine Mucus (None) /hpf 05/11/23 05/11/23 05/11/23 Range/Units 01:33 06:04 06:20 WBC (3.8-10.6) k/uL RBC (3.80-5.40) m/uL Hgb (11.4-16.0) gm/dL Hct (34.0-46.0) % MCHC (31.0-37.0) g/dL RDW (11.5-15.5) % Neutrophils # (Manual) (1.3-7.7) k/uL Metamyelocytes # (Man) (0) k/uL Sodium 132 L (137-145) mmol/L Carbon Dioxide 19 L (22-30) mmol/L BUN 51 H (7-17) mg/dL Creatinine 2.61 H (0.52-1.04) mg/dL Glucose 180 H (74-99) mg/dL POC Glucose (mg/dL) 188 H 203 H (70-110) mg/dL Calcium 8.3 L (8.4-10.2) mg/dL C-Reactive Protein 5.3 H (<1.0) mg/dL Urine Protein (Negative) Urine Glucose (UA) (Negative) Urine Blood (Negative) Ur Leukocyte Esterase (Negative) Urine WBC (0-5) /hpf Urine Mucus (None) /hpf 05/11/23 05/11/23 05/11/23 Range/Units 06:20 10:06 11:55 WBC 11.5 H (3.8-10.6) k/uL RBC 3.14 L (3.80-5.40) m/uL Hgb 9.5 L (11.4-16.0) gm/dL Hct 31.0 L (34.0-46.0) % MCHC 30.8 L (31.0-37.0) g/dL RDW 17.5 H (11.5-15.5) % Neutrophils # (Manual) 8.40 H (1.3-7.7) k/uL Metamyelocytes # (Man) 0.12 H (0) k/uL Sodium (137-145) mmol/L Carbon Dioxide (22-30) mmol/L BUN (7-17) mg/dL Creatinine (0.52-1.04) mg/dL Glucose (74-99) mg/dL POC Glucose (mg/dL) 161 H 156 H (70-110) mg/dL Calcium (8.4-10.2) mg/dL C-Reactive Protein (<1.0) mg/dL Urine Protein (Negative) Urine Glucose (UA) (Negative) Urine Blood (Negative) Ur Leukocyte Esterase (Negative) Urine WBC (0-5) /hpf Urine Mucus (None) /hpf Assessment and Plan Assessment: * Acute altered mental status, likely due to hypoglycemia with blood sugar of 28 noted at 6:13 AM today. She probably also has underlying metabolic encephalopathy due to reasons mentioned below. * Acute hypothermia, rule out urosepsis. * E. coli UTI * History of atrial fibrillation, currently on Xarelto, now switched to Eliquis * Dementia, severe degree. Patient bedridden. * Type 1 diabetes * History of pacemaker placement for sick sinus syndrome * Chronic renal disease, stage III * Hypertension * Hyperlipidemia Plan: * Patient's mentation seems to have returned to baseline. No other neurological workup indicated. * CT head 05/10/2023 revealed moderate degenerative and suspected remote ischemic white matter change. There is dense calcification involving the distal left MCA compatible with intracranial atherosclerotic disease. No acute hemorrhage or mass effect. Greater central ventricular prominence can be associated with component of normal pressure hydrocephalus. I personally reviewed CT head, and feels there is no evidence of hydrocephalus. Patient has severe frontal and temporal lobe atrophy, with associated ex vacuo dilation of lateral ventricles. Patient does have significant dementia, as per patient's family members. * EEG was performed, which revealed background slowing of severe degree, suggestive of generalized cerebral dysfunction as can be seen with toxic metabolic encephalopathy or related to diffuse structural brain abnormality. Clinical correlation is recommended. No epileptiform activity was seen. * No indication for antiepileptic medication. Patient never has any history of seizures. * Ammonia level normal 15 * Patient is hypothermic. Rule out sepsis. Patient currently on ceftriaxone 2 g every 24 hours. * Avoid further episodes of hypoglycemia. * Patient has atrial fibrillation, currently on Eliquis 2.5 mg twice a day. Continue Lipitor 40 mg. * Neurologically no other workup indicated. * Please reconsult neurology if any other concerns. Recommend follow-up with neurologist as outpatient for management of her dementia. Dr. Mar will be available for any neurological concerns over the weekend.
--- NOTE | 2023-05-11 15:51 | P.PN ---
Subjective Progress Note Date: 05/09/23 Principal diagnosis: UTI and Bacteremia Patient is a 78-year-old female with a past medical history significant for diabetes mellitus hypertension hyperlipidemia atrial fibrillation renal disease patient apparently presented to the [place] ER for evaluation of lethargy and fever and this patient apparently a resident of a detention in [facility], patient has been diagnosed with a urinary tract infection blood culture drawn at the outside facility came back positive with gram-positive cocci in chain. On today's visit that is 05/09/2023 the patient continues to be afebrile, the patient is breathing comfortably on room air patient denies chest pain shortness of breath cough no abdominal pain no diarrhea. Patient white count of 14,000 creatinine 3.22 as of yesterday and no blood draw today, urine with E. coli blood culture here has been negative blood culture at the outside facility was positive for streptococci agalactiae Objective - Vital Signs Vital signs: Vital Signs Temp 97.4 F L 05/09/23 11:18 Pulse 65 05/09/23 11:18 Resp 18 05/09/23 11:18 BP 142/72 05/09/23 11:18 Pulse Ox 97 05/09/23 11:18 FiO2 21 05/08/23 08:22 Intake & Output 05/08/23 05/09/23 05/09/23 18:59 06:59 18:59 Intake Total 300 0 Output Total 325 225 Balance -25 -225 0 Intake: Oral 300 0 Output: Urine 325 225 Other: Voiding Method Indwelling Catheter Indwelling Catheter Indwelling Catheter # Voids 1 # Bowel Movements 1 - Exam GENERAL DESCRIPTION: Elderly female lying in bed in no distress RESPIRATORY SYSTEM: Unlabored breathing , decreased breath sounds at bases HEART: S1 S2 regular rate and rhythm ,no loud murmurs ABDOMEN: Soft , no tenderness EXTREMITIES: No edema feet - Labs CBC & Chem 7: 05/11/23 06:20 05/11/23 06:20 Labs: Abnormal Lab Results - Last 24 Hours (Table) 05/08/23 05/08/23 Range/Units 16:35 19:53 POC Glucose (mg/dL) 152 H 111 H (70-110) mg/dL Microbiology - Last 24 Hours (Table) 05/06/23 10:30 Blood Culture - Preliminary Blood Assessment and Plan (1) UTI (urinary tract infection) Current Visit: Yes Status: Acute Code(s): N39.0 - URINARY TRACT INFECTION, SITE NOT SPECIFIED SNOMED Code(s): 48013174 (2) Bacteremia Current Visit: Yes Status: Acute Code(s): R78.81 - BACTEREMIA SNOMED Code(s): 9883390 (3) Leukocytosis Current Visit: No Status: Acute Code(s): D72.829 - ELEVATED WHITE BLOOD CELL COUNT, UNSPECIFIED SNOMED Code(s): 506815557 Plan: 1patient presented to outside facility with weakness lethargy patient did have elevated white count positive UA concerning for a symptomatic urinary tract infection likely from enteric gram-negative pathogen keeping in mind the patient is a detention resident we will need to cover for the resistant gram- negative. 2patient with renal insufficiency high risk of nephrotoxicity. 3positive blood culture with Streptococcus agalactiae at outside facility , blood culture drawn here has been negative patient currently do not have any skin or soft tissue lesion and urine is growing E. coli. 4patient to continue with the Rocephin and monitor clinical course closely Dictation was produced using [employer] dictation software. please excuse any grammatical, word or spelling errors. Time with Patient: Less than 30
--- NOTE | 2023-05-11 15:53 | P.PN ---
Subjective Progress Note Date: 05/10/23 Principal diagnosis: UTI and Bacteremia Patient is a 78-year-old female with a past medical history significant for diabetes mellitus hypertension hyperlipidemia atrial fibrillation renal disease patient apparently presented to the [place] ER for evaluation of lethargy and fever and this patient apparently a resident of a usp in [facility], patient has been diagnosed with a urinary tract infection blood culture drawn at the outside facility came back positive with gram-positive cocci in chain. On today's visit that is 05/10/2023 patient did have an episode of low blood sugar, unresponsiveness and hypothermia requiring transfer to the ICU, patient is currently on a nasal cannula oxygen not requiring any pressor support no vomiting diarrhea or any other changes reported by the nursing staff Patient did have a white count of 12.7 creatinine is 2.77 Objective - Vital Signs Vital signs: Vital Signs Temp 91.2 F L 05/10/23 09:35 Pulse 52 L 05/10/23 09:35 Resp 18 05/10/23 09:35 BP 105/61 05/10/23 09:35 Pulse Ox 99 05/10/23 09:35 FiO2 21 05/08/23 08:22 Intake & Output 05/09/23 05/10/23 05/10/23 18:59 06:59 18:59 Intake Total 238 Output Total 400 450 Balance -162 -450 Intake: Oral 238 Output: Urine 400 450 Other: Voiding Method Indwelling Catheter Indwelling Catheter # Voids 1 - Exam GENERAL DESCRIPTION: Elderly female lying in bed in no distress RESPIRATORY SYSTEM: Unlabored breathing , decreased breath sounds at bases HEART: S1 S2 regular rate and rhythm ,no loud murmurs ABDOMEN: Soft , no tenderness EXTREMITIES: No edema feet - Labs CBC & Chem 7: 05/11/23 06:20 05/11/23 06:20 Labs: Abnormal Lab Results - Last 24 Hours (Table) 05/09/23 05/09/23 05/10/23 Range/Units 20:32 20:35 06:13 WBC (3.8-10.6) k/uL RBC (3.80-5.40) m/uL Hgb (11.4-16.0) gm/dL Hct (34.0-46.0) % MCHC (31.0-37.0) g/dL RDW (11.5-15.5) % Neutrophils # (1.3-7.7) k/uL ABG pH (7.35-7.45) ABG pCO2 (35-45) mmHg ABG HCO3 (21-25) mmol/L ABG Total CO2 (19-24) mmol/L Sodium (137-145) mmol/L Chloride (98-107) mmol/L BUN (7-17) mg/dL Creatinine (0.52-1.04) mg/dL Glucose (74-99) mg/dL POC Glucose (mg/dL) 117 H 115 H 29 L (70-110) mg/dL Plasma Lactic Acid Bakari (0.7-2.0) mmol/L Total Protein (6.3-8.2) g/dL Albumin (3.5-5.0) g/dL 05/10/23 05/10/23 05/10/23 Range/Units 06:15 06:24 06:37 WBC (3.8-10.6) k/uL RBC (3.80-5.40) m/uL Hgb (11.4-16.0) gm/dL Hct (34.0-46.0) % MCHC (31.0-37.0) g/dL RDW (11.5-15.5) % Neutrophils # (1.3-7.7) k/uL ABG pH (7.35-7.45) ABG pCO2 (35-45) mmHg ABG HCO3 (21-25) mmol/L ABG Total CO2 (19-24) mmol/L Sodium (137-145) mmol/L Chloride (98-107) mmol/L BUN (7-17) mg/dL Creatinine (0.52-1.04) mg/dL Glucose (74-99) mg/dL POC Glucose (mg/dL) 28 L 184 H 126 H (70-110) mg/dL Plasma Lactic Acid Bakari (0.7-2.0) mmol/L Total Protein (6.3-8.2) g/dL Albumin (3.5-5.0) g/dL 05/10/23 05/10/23 05/10/23 Range/Units 07:21 07:23 07:23 WBC 12.7 H (3.8-10.6) k/uL RBC 3.29 L (3.80-5.40) m/uL Hgb 9.8 L (11.4-16.0) gm/dL Hct 32.8 L (34.0-46.0) % MCHC 29.8 L (31.0-37.0) g/dL RDW 17.0 H (11.5-15.5) % Neutrophils # 9.3 H (1.3-7.7) k/uL ABG pH 7.32 L (7.35-7.45) ABG pCO2 51 H (35-45) mmHg ABG HCO3 26 H (21-25) mmol/L ABG Total CO2 27 H (19-24) mmol/L Sodium 136 L (137-145) mmol/L Chloride 109 H (98-107) mmol/L BUN 56 H (7-17) mg/dL Creatinine 2.83 H (0.52-1.04) mg/dL Glucose (74-99) mg/dL POC Glucose (mg/dL) (70-110) mg/dL Plasma Lactic Acid Bakari (0.7-2.0) mmol/L Total Protein (6.3-8.2) g/dL Albumin (3.5-5.0) g/dL 05/10/23 05/10/23 Range/Units 07:23 11:13 WBC (3.8-10.6) k/uL RBC (3.80-5.40) m/uL Hgb (11.4-16.0) gm/dL Hct (34.0-46.0) % MCHC (31.0-37.0) g/dL RDW (11.5-15.5) % Neutrophils # (1.3-7.7) k/uL ABG pH (7.35-7.45) ABG pCO2 (35-45) mmHg ABG HCO3 (21-25) mmol/L ABG Total CO2 (19-24) mmol/L Sodium 136 L (137-145) mmol/L Chloride 108 H (98-107) mmol/L BUN 58 H (7-17) mg/dL Creatinine 2.77 H (0.52-1.04) mg/dL Glucose 71 L (74-99) mg/dL POC Glucose (mg/dL) (70-110) mg/dL Plasma Lactic Acid Bakari 0.6 L (0.7-2.0) mmol/L Total Protein 5.5 L (6.3-8.2) g/dL Albumin 2.2 L (3.5-5.0) g/dL Microbiology - Last 24 Hours (Table) 05/06/23 10:30 Blood Culture - Preliminary Blood Assessment and Plan (1) UTI (urinary tract infection) Current Visit: Yes Status: Acute Code(s): N39.0 - URINARY TRACT INFECTION, SITE NOT SPECIFIED SNOMED Code(s): 69966507 (2) Bacteremia Current Visit: Yes Status: Acute Code(s): R78.81 - BACTEREMIA SNOMED Code(s): 9145505 (3) Leukocytosis Current Visit: No Status: Acute Code(s): D72.829 - ELEVATED WHITE BLOOD CELL COUNT, UNSPECIFIED SNOMED Code(s): 002291565 Plan: 1patient presented to outside facility with weakness lethargy patient did have elevated white count positive UA concerning for a symptomatic urinary tract infection likely from enteric gram-negative pathogen keeping in mind the patient is a usp resident we will need to cover for the resistant gram- negative. 2patient with renal insufficiency high risk of nephrotoxicity. 3positive blood culture with Streptococcus agalactiae at outside facility , blood culture drawn here has been negative patient currently do not have any skin or soft tissue lesion and urine is growing E. coli. 4patient did have significant hypothermia and hypoglycemia requiring transfer to the ICU blood culture has been obtained we will repeat her UA and culture, continue with Rocephin and adjusting antibiotic further on the base of repeat culture Dictation was produced using [employer] dictation software. please excuse any grammatical, word or spelling errors. Time with Patient: Less than 30
--- NOTE | 2023-05-11 15:56 | P.PN ---
Subjective Progress Note Date: 05/11/23 Principal diagnosis: UTI and Bacteremia Patient is a 78-year-old female with a past medical history significant for diabetes mellitus hypertension hyperlipidemia atrial fibrillation renal disease patient apparently presented to the [place] ER for evaluation of lethargy and fever and this patient apparently a resident of a residential in [facility], patient has been diagnosed with a urinary tract infection blood culture drawn at the outside facility came back positive with gram-positive cocci in chain. On today's visit that is 05/11/2023, the patient temperature has normalized, patient is more awake today however not a very good historian no vomiting diarrhea or any other changes reported by the nursing staff Patient did have a white count is down to 11.5, creatinine is 2.61, repeat urine was mildly positive Objective - Vital Signs Vital signs: Vital Signs Temp 97.9 F 05/11/23 08:00 Pulse 70 05/11/23 10:00 Resp 12 05/11/23 10:00 BP 141/70 05/11/23 10:00 Pulse Ox 94 L 05/11/23 10:18 FiO2 21 05/11/23 10:18 Intake & Output 05/10/23 05/11/23 05/11/23 18:59 06:59 18:59 Intake Total 350 920 350 Output Total 640 237 100 Balance -290 683 250 Weight 90.718 kg 92.9 kg Intake: IV 350 850 75 Dextrose 10% in Water 500 350 100 ml In Empty Bag 1 bag @ 50 mls/hr IV .Q10H HONG Rx #:[id number] Dextrose 5%-0.45% NaCl 1, 750 75 000 ml @ 75 mls/hr IV . [id number] HONG Rx#:[id number] Intake, IV Titration 275 Amount Dextrose 5%-0.9% NaCl 1, 225 000 ml @ 75 mls/hr IV . [id number] HONG Rx#:[id number] cefTRIAXone 2 gm In 50 Sodium Chloride 0.9% 50 ml @ 100 mls/hr IVPB Q24HR HONG Rx#:[id number] Oral 70 Output: Urine 640 237 100 Other: Voiding Method Indwelling Catheter Indwelling Catheter Indwelling Catheter # Bowel Movements 1 - Exam GENERAL DESCRIPTION: Elderly female lying in bed in no distress RESPIRATORY SYSTEM: Unlabored breathing , decreased breath sounds at bases HEART: S1 S2 regular rate and rhythm ,no loud murmurs ABDOMEN: Soft , no tenderness EXTREMITIES: No edema feet - Labs CBC & Chem 7: 05/11/23 06:20 05/11/23 06:20 Labs: Abnormal Lab Results - Last 24 Hours (Table) 05/10/23 05/10/23 05/10/23 Range/Units 15:27 18:33 18:46 WBC (3.8-10.6) k/uL RBC (3.80-5.40) m/uL Hgb (11.4-16.0) gm/dL Hct (34.0-46.0) % MCHC (31.0-37.0) g/dL RDW (11.5-15.5) % Neutrophils # (Manual) (1.3-7.7) k/uL Metamyelocytes # (Man) (0) k/uL Sodium (137-145) mmol/L Carbon Dioxide (22-30) mmol/L BUN (7-17) mg/dL Creatinine (0.52-1.04) mg/dL Glucose (74-99) mg/dL POC Glucose (mg/dL) 119 H 126 H (70-110) mg/dL Calcium (8.4-10.2) mg/dL C-Reactive Protein (<1.0) mg/dL Urine Protein 2+ H (Negative) Urine Glucose (UA) Trace H (Negative) Urine Blood Trace H (Negative) Ur Leukocyte Esterase Moderate H (Negative) Urine WBC 11 H (0-5) /hpf Urine Mucus Rare H (None) /hpf 05/10/23 05/10/23 05/10/23 Range/Units 19:47 21:14 23:56 WBC (3.8-10.6) k/uL RBC (3.80-5.40) m/uL Hgb (11.4-16.0) gm/dL Hct (34.0-46.0) % MCHC (31.0-37.0) g/dL RDW (11.5-15.5) % Neutrophils # (Manual) (1.3-7.7) k/uL Metamyelocytes # (Man) (0) k/uL Sodium (137-145) mmol/L Carbon Dioxide (22-30) mmol/L BUN (7-17) mg/dL Creatinine (0.52-1.04) mg/dL Glucose (74-99) mg/dL POC Glucose (mg/dL) 139 H 122 H 207 H (70-110) mg/dL Calcium (8.4-10.2) mg/dL C-Reactive Protein (<1.0) mg/dL Urine Protein (Negative) Urine Glucose (UA) (Negative) Urine Blood (Negative) Ur Leukocyte Esterase (Negative) Urine WBC (0-5) /hpf Urine Mucus (None) /hpf 05/11/23 05/11/23 05/11/23 Range/Units 01:33 06:04 06:20 WBC (3.8-10.6) k/uL RBC (3.80-5.40) m/uL Hgb (11.4-16.0) gm/dL Hct (34.0-46.0) % MCHC (31.0-37.0) g/dL RDW (11.5-15.5) % Neutrophils # (Manual) (1.3-7.7) k/uL Metamyelocytes # (Man) (0) k/uL Sodium 132 L (137-145) mmol/L Carbon Dioxide 19 L (22-30) mmol/L BUN 51 H (7-17) mg/dL Creatinine 2.61 H (0.52-1.04) mg/dL Glucose 180 H (74-99) mg/dL POC Glucose (mg/dL) 188 H 203 H (70-110) mg/dL Calcium 8.3 L (8.4-10.2) mg/dL C-Reactive Protein 5.3 H (<1.0) mg/dL Urine Protein (Negative) Urine Glucose (UA) (Negative) Urine Blood (Negative) Ur Leukocyte Esterase (Negative) Urine WBC (0-5) /hpf Urine Mucus (None) /hpf 05/11/23 05/11/23 05/11/23 Range/Units 06:20 10:06 11:55 WBC 11.5 H (3.8-10.6) k/uL RBC 3.14 L (3.80-5.40) m/uL Hgb 9.5 L (11.4-16.0) gm/dL Hct 31.0 L (34.0-46.0) % MCHC 30.8 L (31.0-37.0) g/dL RDW 17.5 H (11.5-15.5) % Neutrophils # (Manual) 8.40 H (1.3-7.7) k/uL Metamyelocytes # (Man) 0.12 H (0) k/uL Sodium (137-145) mmol/L Carbon Dioxide (22-30) mmol/L BUN (7-17) mg/dL Creatinine (0.52-1.04) mg/dL Glucose (74-99) mg/dL POC Glucose (mg/dL) 161 H 156 H (70-110) mg/dL Calcium (8.4-10.2) mg/dL C-Reactive Protein (<1.0) mg/dL Urine Protein (Negative) Urine Glucose (UA) (Negative) Urine Blood (Negative) Ur Leukocyte Esterase (Negative) Urine WBC (0-5) /hpf Urine Mucus (None) /hpf Assessment and Plan (1) UTI (urinary tract infection) Current Visit: Yes Status: Acute Code(s): N39.0 - URINARY TRACT INFECTION, SITE NOT SPECIFIED SNOMED Code(s): 50328586 (2) Bacteremia Current Visit: Yes Status: Acute Code(s): R78.81 - BACTEREMIA SNOMED Code(s): 0670936 (3) Leukocytosis Current Visit: No Status: Acute Code(s): D72.829 - ELEVATED WHITE BLOOD CELL COUNT, UNSPECIFIED SNOMED Code(s): 947195302 Plan: 1patient presented to outside facility with weakness lethargy patient did have elevated white count positive UA concerning for a symptomatic urinary tract infection likely from enteric gram-negative pathogen keeping in mind the patient is a residential resident we will need to cover for the resistant gram- negative. 2patient with renal insufficiency high risk of nephrotoxicity. 3positive blood culture with Streptococcus agalactiae at outside facility , blood culture drawn here has been negative patient currently do not have any skin or soft tissue lesion and urine is growing E. coli. 4patient did have some clinical improvement compared to yesterday repeat cultures are currently pending we will continue the patient Rocephin and monitor clinical course closely Dictation was produced using [employer] dictation software. please excuse any grammatical, word or spelling errors. Time with Patient: Less than 30
[2023-05-11 16:41] LABS: Glucose,Whole Blood 144 mg/dL (70-110)
[2023-05-11 17:23] LABS: Glucose,Whole Blood 141 mg/dL (70-110)
[2023-05-11 20:15] LABS: Glucose,Whole Blood 149 mg/dL (70-110)
[2023-05-11] MEDS: ATORVASTATIN 40 MG TAB PO SCH (20:22)
[2023-05-11] MEDS: INSULIN DETEMIR (LEVEMIR) 100 UNIT/ML SYR SQ SCH (21:40)
[2023-05-11] MEDS: NYSTATIN 100,000 UNIT/GM POWD 15 GM TOPICAL SCH (21:41)
[2023-05-11] MEDS: traMADol 50 MG TAB PO PRN (21:58)
[2023-05-12 02:00] LABS: Glucose,Whole Blood 123 mg/dL (70-110)
[2023-05-12] MEDS: traMADol 50 MG TAB PO PRN ×2 (05:06→21:40)
[2023-05-12] MEDS: CALCIUM ACETATE 667 MG TAB PO SCH ×3 (07:27→17:42)
[2023-05-12] MEDS: carvediloL 12.5 MG TAB PO SCH ×2 (07:27→17:42)
[2023-05-12] MEDS: allopurinoL 300 MG TAB PO SCH (07:27)
[2023-05-12] MEDS: SODIUM BICARBONATE TAB 650 MG TAB PO SCH ×2 (07:27→21:40)
[2023-05-12] MEDS: MAGNESIUM OXIDE 400 MG TAB PO SCH ×2 (07:27→21:41)
[2023-05-12] MEDS: PANTOPRAZOLE 40 MG TABLET PO SCH (07:27)
[2023-05-12] MEDS: FERROUS SULFATE 325 MG TAB PO SCH ×2 (07:27→17:42)
[2023-05-12] MEDS: APIXABAN 2.5 MG TABLET PO SCH ×2 (07:27→21:41)
[2023-05-12] MEDS: NYSTATIN 100,000 UNIT/GM POWD 15 GM TOPICAL SCH ×2 (07:28→21:41)
[2023-05-12 07:49] LABS: Glucose,Whole Blood 83 mg/dL (70-110)
--- NOTE | 2023-05-12 08:03 | P.PN ---
Subjective Progress Note Date: 05/12/23 Principal diagnosis: Mental status changes, urinary tract infection. Pulmonary consult dated 05/10/2023. 78-year-old female admitted back on May 04 for weakness. She was mchugh bsequently discovered to have a Escherichia coli urinary tract infection. We were asked to see her today, by the primary service, because apparently this morning at about 6:30, the patient had a significant mental status change. She was noted to have a very low blood glucose, was given some dextrose. In addition, the patient was given some Narcan, without response. She was admitted with E. coli urinary tract infection was started on Rocephin. Currently, her vital signs: Blood pressure 135/61, heart rate 51, and saturations 99% on 2 L. The patient's getting dextrose with half-normal saline at 75 mL an hour. She did receive gabapentin, Klonopin, and Fenwick, last night, and left 20/200. She got the Narcan this morning at about 6:00, 0.2 mg. The nurse that has to today, also had her yesterday. She states that the patient had a significant mental status change, as yesterday, she was quite alert and oriented. Today, she's very lethargic and somnolent, barely open her eyes or respond. White count 12.7, hemoglobin 9.8, hematocrit 32.8, with a normal platelet count. Blood gases show pO2 100, pCO2 51, and pH is 7.32. This is on 28% oxygen. Sodium 136, potassium 4.4, chlorides 109, CO2 24, BUN 56 and creatinine 2.83. Glucose was 83. Lactic acid 0.6. When we evaluated her today, she was getting an EEG. Chest x-ray shows some bibasilar infiltrates/atelectasis, or effusion. Progress note dated 05/11/2023. 78-year-old female that was on consultation yesterday. She was admitted on May 04 for weakness. She was discovered to have an Escherichia coli urinary tract infection. Apparently yesterday, her nurse, stated that there was acute mental status changes, hypotension and bradycardia, and hypothermia. For that reason, we are asked to see her, and I decided to move her to the intensive care unit, for all of those reasons, but mostly because of mental status changes. Her EEG showed diffuse slowing consistent with metabolic/toxic encephalopathy. The computed tomography scan of the brain showed nothing acute. Today she seen in the intensive care unit, room 254. She's had an uneventful night. She is on room air. She's getting dextrose was saline at 75 mL an hour. The patient is currently on Rocephin for her urinary tract infection. She appears not have any distress and denies any specific complaints. Her mental status is much improved since yesterday. White count 11.5, hemoglobin 9.5, hematocrit 31, with a normal platelet count. Sodium 132, potassium 4.6, chlorides 107, CO2 19, BUN 51 and creatinine 2.61. These electrolytes are consistent with benign anion gap metabolic acidosis, secondary to chronic kidney disease. Progress note dated 05/12/2023. 78-year-old female that we initially saw on consultation, because of hypothermia, bradycardia, and hypotension. The patient was admitted with a diagnosis of Escherichia coli urinary tract infection, and started on Rocephin. She was in the ICU briefly, was transferred out to the floor. Currently, she is on room air. No IV fluids are running. She is receiving Rocephin. No new labs today. Glucose was 83. She appears very stable. Objective - Vital Signs Vital signs: Vital Signs Temp 98.4 F 05/12/23 01:09 Pulse 76 05/12/23 01:09 Resp 17 05/12/23 01:09 BP 137/68 05/12/23 01:09 Pulse Ox 96 05/12/23 01:09 FiO2 21 05/11/23 10:18 Intake & Output 05/11/23 05/12/23 05/12/23 18:59 06:59 18:59 Intake Total 350 Output Total 500 600 Balance -150 -600 Intake: IV 75 Dextrose 5%-0.45% NaCl 1, 75 000 ml @ 75 mls/hr IV . [id number] HONG Rx#:[id number] Intake, IV Titration 275 Amount Dextrose 5%-0.9% NaCl 1, 225 000 ml @ 75 mls/hr IV . [id number] HONG Rx#:[id number] cefTRIAXone 2 gm In 50 Sodium Chloride 0.9% 50 ml @ 100 mls/hr IVPB Q24HR HONG Rx#:[id number] Output: Urine 500 600 Other: Voiding Method Indwelling Catheter Indwelling Catheter - Exam No acute distress, much more awake and alert, currently on room air. The patient responds appropriately. HEENT examination is grossly unremarkable. Neck supple. Full range of motion. No adenopathy thyromegaly or neck vein distention. Cardiovascular examination reveals regular rhythm rate. S1-S2 normal. No S3 or S4. No discernible murmur noted. Heart rate 76 bpm. Lungs reveal clear breath sounds. Breath sounds are equal bilaterally. No adventitious lung sounds including wheezes rhonchi or crackles. Room air saturation is 96 %. Abdomen soft, obese, without masses. Extremities are intact. No cyanosis clubbing or edema. Skin is without rash or lesion. Neurologic examination reveals the patient to be much more alert and awake. - Labs CBC & Chem 7: 05/11/23 06:20 05/11/23 06:20 Labs: Abnormal Lab Results - Last 24 Hours (Table) 05/11/23 05/11/23 05/11/23 Range/Units 06:20 10:06 11:55 Neutrophils # (Manual) 8.40 H (1.3-7.7) k/uL Metamyelocytes # (Man) 0.12 H (0) k/uL POC Glucose (mg/dL) 161 H 156 H (70-110) mg/dL 05/11/23 05/11/23 05/11/23 Range/Units 16:39 17:22 20:12 Neutrophils # (Manual) (1.3-7.7) k/uL Metamyelocytes # (Man) (0) k/uL POC Glucose (mg/dL) 144 H 141 H 149 H (70-110) mg/dL 05/12/23 Range/Units 01:57 Neutrophils # (Manual) (1.3-7.7) k/uL Metamyelocytes # (Man) (0) k/uL POC Glucose (mg/dL) 123 H (70-110) mg/dL Microbiology - Last 24 Hours (Table) 05/06/23 10:30 Blood Culture - Final Blood 05/10/23 11:13 Blood Culture - Preliminary Blood Assessment and Plan Assessment: Acute mental status changes, of unclear etiology. This could relate to a primary [employer] process, medication related, or septic encephalopathy. The patient's EEG was consistent with moderate to severe encephalopathy, likely secondary to metabolic/toxic reasons. The patient's mental status, as of May 11, is much improved. Escherichia coli urinary tract infection. History of atrial fibrillation. History of dementia. Diabetes mellitus. History of seizure disorder. History of hypertension. History of hyperlipidemia. Gastroesophageal reflux disease. Status post pacemaker insertion for sick sinus syndrome. History of Parkinson's disease. Stage III chronic kidney disease. Plan: Plan dated 05/10/2023. The patient is seen and examined, in room 369. In addition, we spoke to the primary nurse, who is able to give us a good history as to what was going on with the patient. Labs, x-rays, and medications are reviewed. The patient is currently undergoing an EEG. If not or ready done, she'll need a computed tomography scan of the brain. The patient will be transferred to the intensive care unit, for further monitoring and management. The patient currently is on Rocephin for an Escherichia coli urinary tract infection. Gabapentin, Klonopin, and Fenwick are all discontinued. Vital signs are reasonable except for a heart rate of 51 bpm. She's getting D5 half-normal saline at 75 cc/h. Prognosis is guarded. Plan dated 05/11/2023. The patient is seen and examined in room 254. Her mental status is much improved. She is awake and alert. She continues on Rocephin for her Escherichia coli urinary tract infection. The patient is also getting dextrose with saline at 75 mL an hour. Narcotics are discontinued as was the gabapentin and Klonopin. We will continue to follow make recommendations along the way. The results of the CAT scan and EEG were reviewed. Chest x-ray from yesterday was also reviewed. Prognosis is guarded. The patient is stable enough to be transferred out to the floor. Plan dated 05/12/2023. The patient was seen in the intensive care unit yesterday. She was transferred out to the floor, room 522. The patient appears to be very stable and her neurologic status is much improved. Her bradycardia, hypotension, and hypothermia, have all resolved. The patient continues on Rocephin for an Escherichia coli urinary tract infection. We will see the patient, moving forward, only as needed. Time with Patient: Less than 30
[2023-05-12] MEDS: INSULIN ASPART (NovoLOG) 100 UNIT/ML VIAL SQ SCH ×4 (08:36→21:39)
[2023-05-12 12:47] LABS: Glucose,Whole Blood 115 mg/dL (70-110)
--- NOTE | 2023-05-12 13:20 | P.PN ---
Subjective Progress Note Date: 05/12/23 Follow-up for chronic kidney disease. Objective - Vital Signs Vital signs: Vital Signs Temp 98.0 F 05/12/23 07:42 Pulse 78 05/12/23 07:42 Resp 16 05/12/23 07:42 BP 123/58 05/12/23 07:42 Pulse Ox 100 05/12/23 07:42 FiO2 21 05/11/23 10:18 Intake & Output 05/11/23 05/12/23 05/12/23 18:59 06:59 18:59 Intake Total 350 Output Total 500 600 Balance -150 -600 Intake: IV 75 Dextrose 5%-0.45% NaCl 1, 75 000 ml @ 75 mls/hr IV . [id number] HONG Rx#:[id number] Intake, IV Titration 275 Amount Dextrose 5%-0.9% NaCl 1, 225 000 ml @ 75 mls/hr IV . [id number] HONG Rx#:[id number] cefTRIAXone 2 gm In 50 Sodium Chloride 0.9% 50 ml @ 100 mls/hr IVPB Q24HR HONG Rx#:[id number] Output: Urine 500 600 Other: Voiding Method Indwelling Catheter Indwelling Catheter Indwelling Catheter - Exam No acute distress. S1-S2 heard Lungs clear No edema - Labs CBC & Chem 7: 05/11/23 06:20 05/11/23 06:20 Labs: Abnormal Lab Results - Last 24 Hours (Table) 05/11/23 05/11/23 05/11/23 Range/Units 16:39 17:22 20:12 POC Glucose (mg/dL) 144 H 141 H 149 H (70-110) mg/dL 05/12/23 05/12/23 Range/Units 01:57 12:46 POC Glucose (mg/dL) 123 H 115 H (70-110) mg/dL Microbiology - Last 24 Hours (Table) 05/10/23 18:46 Urine Culture - Final Urine,Voided 05/06/23 10:30 Blood Culture - Final Blood 05/10/23 11:13 Blood Culture - Preliminary Blood Assessment and Plan Assessment: #1 acute kidney injury secondary to septic ATN -Baseline creatinine 2.5 MG per DL #2 chronic kidney disease stage IV secondary to diabetic kidney disease. #3 severe sepsis from E. coli UTI #4 anemia with chronic kidney disease #5 metabolic bone disease Plan: #1 renal function stable around baseline #2 antibiotics as per primary team #3 CK D medications
--- NOTE | 2023-05-12 13:59 | P.PN ---
Subjective Progress Note Date: 05/12/23 The pt is seen in neurologic follow up on 2022, in collaboration with Lucia Jalloh, via teleneurology. The pt denies pain. She states that she slept well. The pt's chart has been reviewed. Objective - Vital Signs Vital signs: Vital Signs Temp 98.0 F 05/12/23 07:42 Pulse 78 05/12/23 07:42 Resp 16 05/12/23 07:42 BP 123/58 05/12/23 07:42 Pulse Ox 100 05/12/23 07:42 FiO2 21 05/11/23 10:18 Intake & Output 05/11/23 05/12/23 05/12/23 18:59 06:59 18:59 Intake Total 350 Output Total 500 600 Balance -150 -600 Intake: IV 75 Dextrose 5%-0.45% NaCl 1, 75 000 ml @ 75 mls/hr IV . [id number] HONG Rx#:[id number] Intake, IV Titration 275 Amount Dextrose 5%-0.9% NaCl 1, 225 000 ml @ 75 mls/hr IV . [id number] HONG Rx#:[id number] cefTRIAXone 2 gm In 50 Sodium Chloride 0.9% 50 ml @ 100 mls/hr IVPB Q24HR HONG Rx#:[id number] Output: Urine 500 600 Other: Voiding Method Indwelling Catheter Indwelling Catheter Indwelling Catheter - Exam General: The pt is resting in the bed. She is in no acute distress HEENT: Head is atraumatic, normocephalic Neuologic examination Mental status: The pt is awake and alert. She is able to state her 1st and last names. She states her day and month of . She does not state the year. She is aware of being in the "hospital". The pt's speech is clear. She is able to follow simple commands. She moves her upper extremities to command. - Labs CBC & Chem 7: 05/11/23 06:20 05/11/23 06:20 Labs: Abnormal Lab Results - Last 24 Hours (Table) 05/11/23 05/11/23 05/11/23 Range/Units 16:39 17:22 20:12 POC Glucose (mg/dL) 144 H 141 H 149 H (70-110) mg/dL Procalcitonin (0.02-0.09) ng/mL 05/12/23 05/12/23 05/12/23 Range/Units 01:57 06:54 12:46 POC Glucose (mg/dL) 123 H 115 H (70-110) mg/dL Procalcitonin 2.75 H (0.02-0.09) ng/mL Microbiology - Last 24 Hours (Table) 05/10/23 18:46 Urine Culture - Final Urine,Voided 05/06/23 10:30 Blood Culture - Final Blood 05/10/23 11:13 Blood Culture - Preliminary Blood Assessment and Plan Assessment: * Acute altered mental status, likely due to hypoglycemia with blood sugar of 28 noted at 6:13 AM today. She probably also has underlying metabolic encepha lopathy due to reasons mentioned below. * Acute hypothermia, rule out urosepsis. * E. coli UTI * History of atrial fibrillation, currently on Xarelto, now switched to Eliquis * Dementia, severe degree. Patient bedridden. * Type 1 diabetes * History of pacemaker placement for sick sinus syndrome * Chronic renal disease, stage III * Hypertension * Hyperlipidemia Plan: 1. Continue your treatment of infection and metabolic issues 2. Neurology will sign off at this time. Please call with questions or concerns Time with Patient: Less than 30 (25 minutes)
[2023-05-12 17:23] LABS: Glucose,Whole Blood 112 mg/dL (70-110)
--- NOTE | 2023-05-12 17:36 | P.PN ---
Progress Note - Text Progress Note Date: 05/12/23 78-year-old female she is a resident at assisted in [facility]. She was found to have signs of lethargy and also fever. She was transferred to [facility] for further evaluation. Patient allegedly a low-grade temperature 100.0. She seemed to be lethargic according to staff. The medic for at least 2 days and progressively she look like she was getting worse. She had labs drawn showing a white count of 29. Patient was seen at urinary tract infection were there is concern that patient was having a significant UTI. Patient is a poor historian. Patient present illness Limited due to limited barrier. Patient denies any pain at this time. patient did have a positive UA with large leukocyte esterase more than 22 WBC white count 21.2 however the left shift and did have a creatinine of 3.70 liver exams are normal Patient remains on IV cefepime per ID recommendations; urine culture growing gram-negative bacilli; final culture and sensitivities pending - Lab review shows improved white blood count of 11.5, sodium is improved at 134; BUN/creatinine remains elevated at 67/3.73; renal ultrasound is completed and is unremarkable; nephrology on board 05/06/2023 patient is seen and evaluated in room at bedside; remains afebrile patient is breathing comfortably on 2 L nasal cannula oxygen denies any chest pain shortness of breath or cough no nausea vomiting no abdominal pain no diarrhea. Patient white count is down to 11.5 creatinine down to 3.45 from 3.73 yesterday; preliminary urine culture reveals gram-negative bacilli. patient presented to outside facility with weakness lethargy patient did have elevated white count positive UA concerning for a symptomatic urinary tract infection likely from enteric gram-negative pathogen keeping in mind the patient is a assisted resident we will need to cover for the resistant gram-negativ e. patient with renal insufficiency high risk of nephrotoxicity. patient with positive blood culture at the outside facility gram-positive cocci in chain questionably contaminant blood cultures will be repeated to document clearance to hold on adding vancomycin as the patient white count is trending down and the patient did have renal insufficiency. patient to continue cefepime while awaiting further urine culture to finalize and monitor clinical course closely May 07: Patient seen by [facility] hospitalists. May 08: I assumed care of the patient today. Laying in bed. Appetite fair. Diet. On IV ceftriaxone. Blood culture from outside facility positive but felt to be contaminant as per ID. May 09: Laying in bed. Tired. Oral intake fluctuating. On IV ceftriaxone . Spoke to patient's Dr. Carrasco on the phone. At baseline patient is nonambulatory. I did explain that patient's overall prognosis is guarded. At this point he wished for her to continue to be full code. May 10: Patient overnight took a turn for the worse. Became rather lethargic. Became severely hypothermic. Rectal temperature went down to 91.2. Aleshia hugger was given. Patient became hypoglycemic laying down to about 20. Dextrose drip was ordered. Became more lethargic. Computed tomography scan of the brain was ordered.-showed chronic changes. No focal findings. Neurology was consulted. EEG was ordered. Spoke to Dr. Weems from ICU. Patient is moved to the ICU. I spoke to patient's daughter at length. Suggested DO NOT RESUSCITATE. Prognosis not good. Daughter will talk to her and other family members about DO NOT RESUSCITATE. I also attached about hospice. Given the poor quality of life. Check sticks are reviewed by me showed right basilar infiltrate/effusion. Total time spent today about 70 minutes Advance care planning: Discussed at length with patient daughter on the telephone. It was discussed that patient's chronic medical debility. Bed bound. Advanced dementia. Has not really been ordered to conversation. Chronic foot drop. CK D. Now decreased oral intake. Also feeding tube was discussed. At this point patient's daughter does not want the same. She will come to see the patient tomorrow and decide about CODE STATUS. Currently to remain full code. Time spent for this about 25 minutes. 8 : ICU. Doing better. More awake. Able to answer simple questions. Dextrose drip discontinued. Accu-Cheks went up to 200. Eating some. IV fluids discontinued. Per nephrology given 1 dose of Lasix. Breathing stable. Levemir was held last night. Resume at 14 units daily at bedtime May 9: In bed. Answering simple questions. Eating some. Accu-Cheks are good. Discussed with Dr. Carrasco over the phone. Updated. Prognosis guarded. The patient is better than the last 2 days. Active Medications Acetaminophen (Acetaminophen Tab 325 Mg Tab) 650 mg PO Q6HR PRN PRN Reason: Mild Pain or Fever > 100.5 Last Admin: 05/11/23 20:22 Dose: 650 mg Allopurinol (Allopurinol 300 Mg Tab) 300 mg PO DAILY@[facility]00 [facility] Last Admin: 05/12/23 07:27 Dose: 300 mg Apixaban (Apixaban 2.5 Mg Tablet) 2.5 mg PO BID [facility]; Protocol Last Admin: 05/12/23 07:27 Dose: 2.5 mg Atorvastatin Calcium (Atorvastatin 40 Mg Tab) 40 mg PO HS@2100 [facility] Last Admin: 05/11/23 20:22 Dose: 40 mg Bisacodyl (Bisacodyl 10 Mg Supp) 10 mg RECTAL DAILY PRN PRN Reason: Constipation Calcitriol (Calcitriol 0.25 Mcg Cap) 0.25 mcg PO MOTUWETHSA@1200 [facility] Last Admin: 05/12/23 12:58 Dose: 0.25 mcg Calcium Acetate (Calcium Acetate 667 Mg Tab) 667 mg PO TID-W/MEALS [facility] Last Admin: 05/12/23 12:58 Dose: 667 mg Carvedilol (Carvedilol 12.5 Mg Tab) 25 mg PO BID@0700,1700 [facility] Last Admin: 05/12/23 07:27 Dose: 25 mg Darbepoetin Peng (Darbepoetin Peng 40 Mcg/0.4 Ml Syringe) 40 mcg SQ Q7D [facility] Last Admin: 05/10/23 19:05 Dose: Not Given Dextrose/Water (Dextrose 50% Syringe 50 Ml) 25 ml IVP PER PROTOCOL PRN; Protocol PRN Reason: Hypoglycemia Dextrose/Water (Dextrose 50% Syringe 50 Ml) 50 ml IVP PER PROTOCOL PRN; Protocol PRN Reason: Hypoglycemia Last Admin: 05/10/23 06:18 Dose: 50 ml Ferrous Sulfate (Ferrous Sulfate 325 Mg Tab) 325 mg PO BID@0700,1700 [facility] Last Admin: 05/12/23 07:27 Dose: 325 mg Ceftriaxone Sodium 2 gm/ (Sodium Chloride) 50 mls @ 100 mls/hr IVPB Q24HR [facility]; Protocol Last Admin: 05/12/23 09:18 Dose: 100 mls/hr Insulin Aspart (Insulin Aspart (Novolog) 100 Unit/Ml Vial) 0 unit SQ ACHS [facility]; Protocol Last Admin: 05/12/23 17:30 Dose: Not Given Insulin Detemir (Insulin Detemir (Levemir) 100 Unit/Ml Syr) 14 unit SQ HS [facility] Last Admin: 05/11/23 21:40 Dose: 14 unit Magnesium Oxide (Magnesium Oxide 400 Mg Tab) 400 mg PO BID [facility] Last Admin: 05/12/23 07:27 Dose: 400 mg Naloxone HCl (Naloxone 0.4 Mg/Ml 1 Ml Vial) 0.2 mg IV Q2M PRN PRN Reason: Opioid Reversal Last Admin: 05/10/23 06:43 Dose: 0.2 mg Nystatin (Nystatin 100,000 Unit/Gm Powd 15 Gm) 1 applic TOPICAL BID [facility]; Protocol Last Admin: 05/12/23 07:28 Dose: 1 applic Pantoprazole Sodium (Pantoprazole 40 Mg Tablet) 40 mg PO DAILY@0700 [facility] Last Admin: 05/12/23 07:27 Dose: 40 mg Sodium Bicarbonate (Sodium Bicarbonate Tab 650 Mg Tab) 650 mg PO BID [facility] Last Admin: 05/12/23 07:27 Dose: 650 mg Tramadol HCl (Tramadol 50 Mg Tab) 50 mg PO TID PRN PRN Reason: pain Last Admin: 05/12/23 05:06 Dose: 50 mg Past medical history to include: Diabetes, paroxysmal atrial fibrillation, Parkinson's, epilepsy, hyperlipidemia, anxiety, depression, sick sinus syndrome with a pacemaker, PAD, CK D stage III, gout, dementia, GERD, non-ambulatory Social history: lives at [facility]. Needs a Nba lift a wheelchair. Incontinent. She can feed herself. No history of smoking alcohol known. Physical examination: VITAL SIGNS: 98.1, 79, 16, 121/71, 100% room air GENERAL: ., Reclining in bed, answering simple questions EYES: Pupils equal. Conjunctiva normal. HEENT: External appearance of nose and ears normal, oral cavity dry mucous membrane NECK: JVD unable to assess; masses not palpable. HEART: Heart sounds irregular; some edema. LUNGS:[ Respiratory rate increased; decreased breath sounds. ABDOMEN: Soft, nontender, liver spleen not palpable, no masses palpable. PSYCH: Answering simple questions . Bit more awake MUSCULOSKELETAL:No Clubbing/cyanosis;muscles-grossly intact. Evidence of OA. Bilateral foot drop INVESTIGATIONS, reviewed in the clinical context: May 11: White count 11.5 hemoglobin 9.5 platelets 222 sodium 132 potassium 4.6 BUN 51 and creatinine 2.61 May 10: Sodium 136 potassium 4.9 BUN 58 creatinine 2.77 albumin 2.2 May 08: White count 14 hemoglobin 10.3 platelets 209 dose potassium 4.8 BUN 63 creatinine 2.2 to Urine culture: E. coli Previous labs: Creatinine 3.86 on 01/23/2023 Assessment and plan: -Severe hypothermia. I see with severe hypoglycemia from decreased oral intake.: Corrected Aleshia hugger. -Severe hypoglycemia.: Corrected Dextrose drip-discontinued. Eating better -Acute UTI with sepsis. From E. coli.: IV ceftriaxone Follow with ID -Sepsis secondary to UTI: Improved IV fluids. Antibiotics -Probable contaminant blood culture -Acute kidney injury, suspect ATN.: Secondary to sepsis. followed by nephrology. -Chronic kidney disease stage IV secondary to diabetic kidney disease and cardiorenal syndrome. Baseline creatinine around 2.5 -Acute delirium metabolic encephalopathy UTI from presentation, presenting initially as lethargy. Better -Depression and anxiety Zoloft. Klonopin -Diabetes mellitus type 2, chronically on insulin Levemir had last night. Resume 14 units.... Follow Accu-Cheks with sliding scale insulin -Diabetic peripheral neuropathy Neurontin 300 mg daily at bedtime -Major cognitive impairment/dementia -Paroxysmal atrial fibrillation Eliquis -sick sinus syndrome with a pacemaker -Chronic medical debility, - baseline needs Nba lift. Fall precautions -Essential hypertension Coreg 25 mg by mouth twice a day -Chronic gout Allopurinol 300 mg a day -Hyperlipidemia Lipitor 40 mg daily at bedtime -Chronic kidney disease stage III likely from diabetic nephropathy and hypertensive nephrosclerosis Renal ultrasound showing bilateral cortical thinning. -Chronic pain syndrome [place] 5 one tablet 3 times a day -Full code Discussed with Dr. Carrasco on the phone. Probably plan to discharge to [facility]CF on Sunday. Prognosis guarded.
--- NOTE | 2023-05-12 18:07 | P.PN ---
Subjective Progress Note Date: 05/12/23 Principal diagnosis: UTI and Bacteremia Patient is a 78-year-old female with a past medical history significant for diabetes mellitus hypertension hyperlipidemia atrial fibrillation renal disease patient apparently presented to the [place] [facility] for evaluation of lethargy and fever and this patient apparently a resident of a senior living in [facility], patient has been diagnosed with a urinary tract infection blood culture drawn at the outside facility came back positive with gram-positive cocci in chain. On today's visit that is 05/12/2023, the patient remains to be afebrile, the patient is breathing comfortably on room air, the patient is more awake and alert today, denies chest pain shortness of breath or cough, no nausea no vomiting no abdominal pain and no diarrhea has been reported. Patient did have a white count is down to 11.5, creatinine is 2.61 as of y no blood work was done today, repeat urine was mildly positive Objective - Vital Signs Vital signs: Vital Signs Temp 98.1 F 05/12/23 13:52 Pulse 79 05/12/23 13:52 Resp 16 05/12/23 13:52 BP 121/71 05/12/23 13:52 Pulse Ox 100 05/12/23 13:52 FiO2 21 05/11/23 10:18 Intake & Output 05/11/23 05/12/23 05/12/23 18:59 06:59 18:59 Intake Total 350 Output Total 500 600 Balance -150 -600 Intake: IV 75 Dextrose 5%-0.45% NaCl 1, 75 000 ml @ 75 mls/hr IV . [id number] [facility] Rx#:[id number] Intake, IV Titration 275 Amount Dextrose 5%-0.9% NaCl 1, 225 000 ml @ 75 mls/hr IV . [id number] [facility] Rx#:[id number] cefTRIAXone 2 gm In 50 Sodium Chloride 0.9% 50 ml @ 100 mls/hr IVPB Q24HR [facility] Rx#:[id number] Output: Urine 500 600 Other: Voiding Method Indwelling Catheter Indwelling Catheter Indwelling Catheter - Exam GENERAL DESCRIPTION: Elderly female lying in bed in no distress RESPIRATORY SYSTEM: Unlabored breathing , decreased breath sounds at bases HEART: S1 S2 regular rate and rhythm ,no loud murmurs ABDOMEN: Soft , no tenderness EXTREMITIES: No edema feet - Labs CBC & Chem 7: 05/11/23 06:20 05/11/23 06:20 Labs: Abnormal Lab Results - Last 24 Hours (Table) 05/11/23 05/12/23 05/12/23 Range/Units 20:12 01:57 06:54 POC Glucose (mg/dL) 149 H 123 H (70-110) mg/dL Procalcitonin 2.75 H (0.02-0.09) ng/mL 05/12/23 05/12/23 Range/Units 12:46 17:21 POC Glucose (mg/dL) 115 H 112 H (70-110) mg/dL Procalcitonin (0.02-0.09) ng/mL Microbiology - Last 24 Hours (Table) 05/10/23 18:46 Urine Culture - Final Urine,Voided 05/06/23 10:30 Blood Culture - Final Blood 05/10/23 11:13 Blood Culture - Preliminary Blood Assessment and Plan (1) UTI (urinary tract infection) Current Visit: Yes Status: Acute Code(s): N39.0 - URINARY TRACT INFECTION, SITE NOT SPECIFIED SNOMED Code(s): 85514568 (2) Bacteremia Current Visit: Yes Status: Acute Code(s): R78.81 - BACTEREMIA SNOMED Code(s): 2103954 (3) Leukocytosis Current Visit: No Status: Acute Code(s): D72.829 - ELEVATED WHITE BLOOD CELL COUNT, UNSPECIFIED SNOMED Code(s): 637399333 Plan: 1patient presented to outside facility with weakness lethargy patient did have elevated white count positive UA concerning for a symptomatic urinary tract infection likely from enteric gram-negative pathogen keeping in mind the patient is a senior living resident we will need to cover for the resistant gram- negative. 2patient with renal insufficiency high risk of nephrotoxicity. 3positive blood culture with Streptococcus agalactiae at outside facility , blood culture drawn here has been negative patient currently do not have any s kin or soft tissue lesion and urine is growing E. coli. 4patient did have some clinical improvement, repeat cultures are currently pending 5-we will continue the patient Rocephin and monitor clinical course closely Dictation was produced using [employer] software. please excuse any grammatical, word or spelling errors.
[2023-05-12 21:01] LABS: Glucose,Whole Blood 167 mg/dL (70-110)
[2023-05-12] MEDS: INSULIN DETEMIR (LEVEMIR) 100 UNIT/ML SYR SQ SCH (21:39)
[2023-05-12] MEDS: ATORVASTATIN 40 MG TAB PO SCH (21:40)
[2023-05-13 07:47] LABS: Glucose,Whole Blood 59 mg/dL (70-110)
[2023-05-13 08:02] LABS: Glucose,Whole Blood 85 mg/dL (70-110)
[2023-05-13] MEDS: SODIUM BICARBONATE TAB 650 MG TAB PO SCH ×2 (09:11→21:13)
[2023-05-13] MEDS: NYSTATIN 100,000 UNIT/GM POWD 15 GM TOPICAL SCH ×2 (09:12→21:13)
[2023-05-13] MEDS: PANTOPRAZOLE 40 MG TABLET PO SCH (09:12)
[2023-05-13] MEDS: CALCIUM ACETATE 667 MG TAB PO SCH ×3 (09:12→17:16)
[2023-05-13] MEDS: APIXABAN 2.5 MG TABLET PO SCH ×2 (09:12→21:13)
[2023-05-13] MEDS: allopurinoL 300 MG TAB PO SCH (09:12)
[2023-05-13] MEDS: INSULIN ASPART (NovoLOG) 100 UNIT/ML VIAL SQ SCH ×4 (09:12→21:02)
[2023-05-13] MEDS: MAGNESIUM OXIDE 400 MG TAB PO SCH ×2 (09:12→21:13)
[2023-05-13] MEDS: carvediloL 12.5 MG TAB PO SCH ×2 (09:12→17:16)
[2023-05-13] MEDS: FERROUS SULFATE 325 MG TAB PO SCH ×2 (09:12→17:16)
[2023-05-13 12:33] LABS: Glucose,Whole Blood 117 mg/dL (70-110)
--- NOTE | 2023-05-13 14:06 | P.PN ---
Subjective Progress Note Date: 05/13/23 Follow-up for chronic kidney disease. Objective - Vital Signs Vital signs: Vital Signs Temp 97.4 F L 05/13/23 07:39 Pulse 71 05/13/23 07:39 Resp 16 05/13/23 08:00 BP 140/56 05/13/23 07:39 Pulse Ox 98 05/13/23 07:39 FiO2 21 05/11/23 10:18 Intake & Output 05/12/23 05/13/23 05/13/23 18:59 06:59 18:59 Intake Total 250 Output Total 600 400 Balance -350 -400 Intake: Intake, IV Titration 50 Amount cefTRIAXone 2 gm In 50 Sodium Chloride 0.9% 50 ml @ 100 mls/hr IVPB Q24HR [facility] Rx#:[id number] Oral 200 Output: Urine 600 400 Other: Voiding Method Indwelling Catheter Indwelling Catheter Indwelling Catheter - Exam No acute distress. S1-S2 heard Lungs clear No edema - Labs CBC & Chem 7: 05/11/23 06:20 05/11/23 06:20 Labs: Abnormal Lab Results - Last 24 Hours (Table) 05/12/23 05/12/23 05/13/23 Range/Units 17:21 21:00 07:39 POC Glucose (mg/dL) 112 H 167 H 59 L (70-110) mg/dL 05/13/23 Range/Units 12:32 POC Glucose (mg/dL) 117 H (70-110) mg/dL Microbiology - Last 24 Hours (Table) 05/10/23 11:13 Blood Culture - Preliminary Blood Assessment and Plan Assessment: #1 acute kidney injury secondary to septic ATN -Baseline creatinine 2.5 MG per DL #2 chronic kidney disease stage IV secondary to diabetic kidney disease. #3 severe sepsis from E. coli UTI #4 anemia with chronic kidney disease #5 metabolic bone disease Plan: #1 renal function stable around baseline #2 antibiotics as per primary team #3 CK D medications #4 labs in the morning
--- NOTE | 2023-05-13 16:16 | P.PN ---
Progress Note - Text Progress Note Date: 05/13/23 78-year-old female she is a resident at senior care in [facility]. She was found to have signs of lethargy and also fever. She was transferred to [facility] for further evaluation. Patient allegedly a low-grade temperature 100.0. She seemed to be lethargic according to staff. The medic for at least 2 days and progressively she look like she was getting worse. She had labs drawn showing a white count of 29. Patient was seen at urinary tract infection were there is concern that patient was having a significant UTI. Patient is a poor historian. Patient present illness Limited due to limited barrier. Patient denies any pain at this time. patient did have a positive UA with large leukocyte esterase more than 22 WBC white count 21.2 however the left shift and did have a creatinine of 3.70 liver exams are normal Patient remains on IV cefepime per ID recommendations; urine culture growing gram-negative bacilli; final culture and sensitivities pending - Lab review shows improved white blood count of 11.5, sodium is improved at 134; BUN/creatinine remains elevated at 67/3.73; renal ultrasound is completed and is unremarkable; nephrology on board 05/06/2023 patient is seen and evaluated in room at bedside; remains afebrile patient is breathing comfortably on 2 L nasal cannula oxygen denies any chest pain shortness of breath or cough no nausea vomiting no abdominal pain no diarrhea. Patient white count is down to 11.5 creatinine down to 3.45 from 3.73 yesterday; preliminary urine culture reveals gram-negative bacilli. patient presented to outside facility with weakness lethargy patient did have elevated white count positive UA concerning for a symptomatic urinary tract infection likely from enteric gram-negative pathogen keeping in mind the patient is a senior care resident we will need to cover for the resistant gram-negativ e. patient with renal insufficiency high risk of nephrotoxicity. patient with positive blood culture at the outside facility gram-positive cocci in chain questionably contaminant blood cultures will be repeated to document clearance to hold on adding vancomycin as the patient white count is trending down and the patient did have renal insufficiency. patient to continue cefepime while awaiting further urine culture to finalize and monitor clinical course closely May 07: Patient seen by [facility] hospitalists. May 08: I assumed care of the patient today. Laying in bed. Appetite fair. Diet. On IV ceftriaxone. Blood culture from outside facility positive but felt to be contaminant as per ID. May 09: Laying in bed. Tired. Oral intake fluctuating. On IV ceftriaxone . Spoke to patient's Dr. Carrasco on the phone. At baseline patient is nonambulatory. I did explain that patient's overall prognosis is guarded. At this point he wished for her to continue to be full code. May 10: Patient overnight took a turn for the worse. Became rather lethargic. Became severely hypothermic. Rectal temperature went down to 91.2. Aleshia hugger was given. Patient became hypoglycemic laying down to about 20. Dextrose drip was ordered. Became more lethargic. Computed tomography scan of the brain was ordered.-showed chronic changes. No focal findings. Neurology was consulted. EEG was ordered. Spoke to Dr. Weems from ICU. Patient is moved to the ICU. I spoke to patient's daughter at length. Suggested DO NOT RESUSCITATE. Prognosis not good. Daughter will talk to her and other family members about DO NOT RESUSCITATE. I also attached about hospice. Given the poor quality of life. Check sticks are reviewed by me showed right basilar infiltrate/effusion. Total time spent today about 70 minutes Advance care planning: Discussed at length with patient daughter on the telephone. It was discussed that patient's chronic medical debility. Bed bound. Advanced dementia. Has not really been ordered to conversation. Chronic foot drop. CK D. Now decreased oral intake. Also feeding tube was discussed. At this point patient's daughter does not want the same. She will come to see the patient tomorrow and decide about CODE STATUS. Currently to remain full code. Time spent for this about 25 minutes. 8 : ICU. Doing better. More awake. Able to answer simple questions. Dextrose drip discontinued. Accu-Cheks went up to 200. Eating some. IV fluids discontinued. Per nephrology given 1 dose of Lasix. Breathing stable. Levemir was held last night. Resume at 14 units daily at bedtime May 12: In bed. Answering simple questions. Eating some. Accu-Cheks are good. Discussed with Dr. Carrasco over the phone. Updated. Prognosis guarded. The patient is better than the last 2 days. May 13: Propped up in bed. Decreased appetite. Answering simple questions. Sugar did drop down a bit this morning. Levemir discontinued. Plan for DC to ECF tomorrow. Accu-Chek 59 this morning. Active Medications Acetaminophen (Acetaminophen Tab 325 Mg Tab) 650 mg PO Q6HR PRN PRN Reason: Mild Pain or Fever > 100.5 Last Admin: 05/11/23 20:22 Dose: 650 mg Allopurinol (Allopurinol 300 Mg Tab) 300 mg PO DAILY@0700 [facility] Last Admin: 05/13/23 09:12 Dose: 300 mg Apixaban (Apixaban 2.5 Mg Tablet) 2.5 mg PO BID [facility]; Protocol Last Admin: 05/13/23 09:12 Dose: 2.5 mg Atorvastatin Calcium (Atorvastatin 40 Mg Tab) 40 mg PO HS@2100 [facility] Last Admin: 05/12/23 21:40 Dose: 40 mg Bisacodyl (Bisacodyl 10 Mg Supp) 10 mg RECTAL DAILY PRN PRN Reason: Constipation Calcitriol (Calcitriol 0.25 Mcg Cap) 0.25 mcg PO MOTUWETHSA@1200 [facility] Last Admin: 05/12/23 12:58 Dose: 0.25 mcg Calcium Acetate (Calcium Acetate 667 Mg Tab) 667 mg PO TID-W/MEALS [facility] Last Admin: 05/13/23 13:35 Dose: 667 mg Carvedilol (Carvedilol 12.5 Mg Tab) 25 mg PO BID@0700,1700 [facility] Last Admin: 05/13/23 09:12 Dose: 25 mg Darbepoetin Peng (Darbepoetin Peng 40 Mcg/0.4 Ml Syringe) 40 mcg SQ Q7D [facility] Last Admin: 05/10/23 19:05 Dose: Not Given Dextrose/Water (Dextrose 50% Syringe 50 Ml) 25 ml IVP PER PROTOCOL PRN; Protocol PRN Reason: Hypoglycemia Dextrose/Water (Dextrose 50% Syringe 50 Ml) 50 ml IVP PER PROTOCOL PRN; Protocol PRN Reason: Hypoglycemia Last Admin: 05/10/23 06:18 Dose: 50 ml Ferrous Sulfate (Ferrous Sulfate 325 Mg Tab) 325 mg PO BID@0700,1700 [facility] Last Admin: 05/13/23 09:12 Dose: 325 mg Ceftriaxone Sodium 2 gm/ (Sodium Chloride) 50 mls @ 100 mls/hr IVPB Q24HR [facility]; Protocol Last Admin: 05/13/23 09:11 Dose: 100 mls/hr Insulin Aspart (Insulin Aspart (Novolog) 100 Unit/Ml Vial) 0 unit SQ ACHS [facility]; Protocol Last Admin: 05/13/23 13:31 Dose: Not Given Magnesium Oxide (Magnesium Oxide 400 Mg Tab) 400 mg PO BID [facility] Last Admin: 05/13/23 09:12 Dose: 400 mg Naloxone HCl (Naloxone 0.4 Mg/Ml 1 Ml Vial) 0.2 mg IV Q2M PRN PRN Reason: Opioid Reversal Last Admin: 05/10/23 06:43 Dose: 0.2 mg Nystatin (Nystatin 100,000 Unit/Gm Powd 15 Gm) 1 applic TOPICAL BID [facility]; Protocol Last Admin: 05/13/23 09:12 Dose: 1 applic Pantoprazole Sodium (Pantoprazole 40 Mg Tablet) 40 mg PO DAILY@0700 [facility] Last Admin: 05/13/23 09:12 Dose: 40 mg Sodium Bicarbonate (Sodium Bicarbonate Tab 650 Mg Tab) 650 mg PO BID [facility] Last Admin: 05/13/23 09:11 Dose: 650 mg Tramadol HCl (Tramadol 50 Mg Tab) 50 mg PO TID PRN PRN Reason: pain Last Admin: 05/12/23 21:40 Dose: 50 mg Past medical history to include: Diabetes, paroxysmal atrial fibrillation, Parkinson's, epilepsy, hyperlipidemia, anxiety, depression, sick sinus syndrome with a pacemaker, PAD, CK D stage III, gout, dementia, GERD, non-ambulatory Social history: lives at [facility]. Needs a Nba lift a wheelchair. Incontinent. She can feed herself. No history of smoking alcohol known. Physical examination: VITAL SIGNS: 97.9, 76, 18, 137/63, 99% room air GENERAL: ., Reclining in bed, answering simple questions EYES: Pupils equal. Conjunctiva normal. HEENT: External appearance of nose and ears normal, oral cavity dry mucous membrane NECK: JVD unable to assess; masses not palpable. HEART: Heart sounds irregular; some edema. LUNGS:[ Respiratory rate increased; decreased breath sounds. ABDOMEN: Soft, nontender, liver spleen not palpable, no masses palpable. PSYCH: Answering simple questions . MUSCULOSKELETAL:No Clubbing/cyanosis;muscles-grossly intact. Evidence of OA. Bilateral foot drop INVESTIGATIONS, reviewed in the clinical context: May 11: White count 11.5 hemoglobin 9.5 platelets 222 sodium 132 potassium 4.6 BUN 51 and creatinine 2.61 May 10: Sodium 136 potassium 4.9 BUN 58 creatinine 2.77 albumin 2.2 May 08: White count 14 hemoglobin 10.3 platelets 209 dose potassium 4.8 BUN 63 creatinine 2.2 to Urine culture: E. coli Previous labs: Creatinine 3.86 on 01/23/2023 Assessment and plan: -Severe hypothermia. I see with severe hypoglycemia from decreased oral intake.: Corrected Aleshia hugger. -Severe hypoglycemia.: Corrected Dextrose drip-discontinued. Eating better -Acute UTI with sepsis. From E. coli.: IV ceftriaxone Follow with ID -Sepsis secondary to UTI: Improved IV fluids. Antibiotics -Probable contaminant blood culture -Acute kidney injury, suspect ATN.: Secondary to sepsis. followed by nephrology. -Chronic kidney disease stage IV secondary to diabetic kidney disease and cardiorenal syndrome. Baseline creatinine around 2.5 -Acute delirium metabolic encephalopathy UTI from presentation, presenting initially as lethargy. Better -Depression and anxiety Zoloft. Klonopin -Diabetes mellitus type 2, chronically on insulin Levemir had last night. Resume 14 units.... Follow Accu-Cheks with sliding scale insulin -Diabetic peripheral neuropathy Neurontin 300 mg daily at bedtime -Major cognitive impairment/dementia -Paroxysmal atrial fibrillation Eliquis -sick sinus syndrome with a pacemaker -Chronic medical debility, - baseline needs Nba lift. Fall precautions -Essential hypertension Coreg 25 mg by mouth twice a day -Chronic gout Allopurinol 300 mg a day -Hyperlipidemia Lipitor 40 mg daily at bedtime -Chronic kidney disease stage III likely from diabetic nephropathy and hypertensive nephrosclerosis Renal ultrasound showing bilateral cortical thinning. -Chronic pain syndrome [place] 5 one tablet 3 times a day -Full code DC Levemir. Plan for DC to ECF tomorrow. Prognosis guarded.
[2023-05-13 17:13] LABS: Glucose,Whole Blood 107 mg/dL (70-110)
--- NOTE | 2023-05-13 18:22 | P.PN ---
Subjective Progress Note Date: 05/13/23 Principal diagnosis: UTI and Bacteremia Patient is a 78-year-old female with a past medical history significant for diabetes mellitus hypertension hyperlipidemia atrial fibrillation renal disease patient apparently presented to the [place] ER for evaluation of lethargy and fever and this patient apparently a resident of a retirement in [facility], patient has been diagnosed with a urinary tract infection blood culture drawn at the outside facility came back positive with gram-positive cocci in chain. On today's visit that is 05/13/2023, the patient continues to be afebrile, the patient is breathing comfortably and the patient denies any shortness of breath no chest pain or cough, the patient denies having any nausea and vomiting no abdominal pain and no diarrhea has been reported Patient did have a white count is down to 11.5, creatinine is 2.61 as of 05/11 no blood work was done today, repeat urine was mildly positive Objective - Vital Signs Vital signs: Vital Signs Temp 97.9 F 05/13/23 14:56 Pulse 76 05/13/23 14:56 Resp 18 05/13/23 14:56 BP 137/63 05/13/23 14:56 Pulse Ox 99 05/13/23 14:56 FiO2 21 05/11/23 10:18 Intake & Output 05/12/23 05/13/23 05/13/23 18:59 06:59 18:59 Intake Total 250 Output Total 600 400 Balance -350 -400 Intake: Intake, IV Titration 50 Amount cefTRIAXone 2 gm In 50 Sodium Chloride 0.9% 50 ml @ 100 mls/hr IVPB Q24HR [facility] Rx#:[id number] Oral 200 Output: Urine 600 400 Other: Voiding Method Indwelling Catheter Indwelling Catheter Indwelling Catheter - Exam GENERAL DESCRIPTION: Elderly female lying in bed in no distress RESPIRATORY SYSTEM: Unlabored breathing , decreased breath sounds at bases HEART: S1 S2 regular rate and rhythm ,no loud murmurs ABDOMEN: Soft , no tenderness EXTREMITIES: No edema feet - Labs CBC & Chem 7: 05/11/23 06:20 05/11/23 06:20 Labs: Abnormal Lab Results - Last 24 Hours (Table) 05/12/23 05/12/23 05/13/23 Range/Units 17:21 21:00 07:39 POC Glucose (mg/dL) 112 H 167 H 59 L (70-110) mg/dL 05/13/23 Range/Units 12:32 POC Glucose (mg/dL) 117 H (70-110) mg/dL Microbiology - Last 24 Hours (Table) 05/10/23 11:13 Blood Culture - Preliminary Blood Assessment and Plan (1) UTI (urinary tract infection) Current Visit: Yes Status: Acute Code(s): N39.0 - URINARY TRACT INFECTION, SITE NOT SPECIFIED SNOMED Code(s): 22454460 (2) Bacteremia Current Visit: Yes Status: Acute Code(s): R78.81 - BACTEREMIA SNOMED Code(s): 0110217 (3) Leukocytosis Current Visit: No Status: Acute Code(s): D72.829 - ELEVATED WHITE BLOOD CELL COUNT, UNSPECIFIED SNOMED Code(s): 688626821 Plan: 1patient presented to outside facility with weakness lethargy patient did have elevated white count positive UA concerning for a symptomatic urinary tract infection likely from enteric gram-negative pathogen keeping in mind the patient is a retirement resident we will need to cover for the resistant gram- negative. 2positive blood culture with Streptococcus agalactiae at outside facility , blood culture drawn here has been negative patient currently do not have any skin or soft tissue lesion and urine is growing E. coli. 3patient did have some clinical improvement, repeat cultures are currently pending 4-the patient will continue the patient Rocephin and short course of Ceftin on discharge Dictation was produced using [employer] dictation software. please excuse any grammatical, word or spelling errors.
[2023-05-13 20:02] LABS: Glucose,Whole Blood 111 mg/dL (70-110)
[2023-05-13] MEDS: ATORVASTATIN 40 MG TAB PO SCH (21:13)
[2023-05-14 02:32] VITALS: RESP 16
[2023-05-14 07:01] LABS: Glucose,Whole Blood 118 mg/dL (70-110)
[2023-05-14] MEDS: allopurinoL 300 MG TAB PO SCH (07:23)
[2023-05-14] MEDS: APIXABAN 2.5 MG TABLET PO SCH (07:23)
[2023-05-14] MEDS: FERROUS SULFATE 325 MG TAB PO SCH ×2 (07:23→17:19)
[2023-05-14] MEDS: MAGNESIUM OXIDE 400 MG TAB PO SCH (07:23)
[2023-05-14] MEDS: SODIUM BICARBONATE TAB 650 MG TAB PO SCH (07:23)
[2023-05-14] MEDS: carvediloL 12.5 MG TAB PO SCH ×2 (07:23→17:19)
[2023-05-14] MEDS: PANTOPRAZOLE 40 MG TABLET PO SCH (07:23)
[2023-05-14] MEDS: CALCIUM ACETATE 667 MG TAB PO SCH ×3 (07:23→17:19)
[2023-05-14] MEDS: NYSTATIN 100,000 UNIT/GM POWD 15 GM TOPICAL SCH (07:24)
[2023-05-14] MEDS: INSULIN ASPART (NovoLOG) 100 UNIT/ML VIAL SQ SCH ×3 (08:45→17:16)
[2023-05-14 08:59] LABS: BUN/Creat Ratio 17.73 Ratio (12.00-20.00); Calcium 8.2 mg/dL (8.7-10.3); Carbon Dioxide 24.5 mmol/L (21.6-31.8); Chloride 107 mmol/L (96-109); Glucose 109 mg/dL (70-110); Potassium 5.1 mmol/L (3.5-5.5); Sodium 139 mmol/L (135-145)
[2023-05-14 11:41] VITALS: BMI 36.3
[2023-05-14 11:47] LABS: Glucose,Whole Blood 131 mg/dL (70-110)
[2023-05-14] MEDS: traMADol 50 MG TAB PO PRN (12:22)
[2023-05-14 12:48] VITALS: BP 164/73; PULSE 79; TEMP 98.5
--- NOTE | 2023-05-14 12:52 | P.PN ---
Subjective Progress Note Date: 05/14/23 Principal diagnosis: UTI and Bacteremia Patient is a 78-year-old female with a past medical history significant for diabetes mellitus hypertension hyperlipidemia atrial fibrillation renal disease patient apparently presented to the [place] ER for evaluation of lethargy and fever and this patient apparently a resident of a usp in [facility], patient has been diagnosed with a urinary tract infection blood culture drawn at the outside facility came back positive with gram-positive cocci in chain. On today's visit that is 05/14/2023, the patient remains to be afebrile, the patient is breathing comfortably , the patient denies having any chest pain or cough, the patient denies nausea and vomiting no abdominal pain and no diarrhea, patient complain of pain into the lower jaw teeth Patient did have a white count is down to 11.5 as of 05/11/2023, creatinine is down to 2.2, repeat urine was mildly positive cultures negative Objective - Vital Signs Vital signs: Vital Signs Temp 98.5 F 05/14/23 12:22 Pulse 79 05/14/23 12:22 Resp 16 05/14/23 12:22 BP 164/73 05/14/23 12:22 Pulse Ox 100 05/14/23 12:22 FiO2 21 05/11/23 10:18 Intake & Output 05/13/23 05/14/23 05/14/23 18:59 06:59 18:59 Intake Total 200 400 Output Total 700 550 Balance -500 -150 Weight 92.9 kg Intake: Oral 200 400 Output: Urine 700 550 Other: Voiding Method Indwelling Catheter Indwelling Catheter Indwelling Catheter # Bowel Movements 1 1 - Exam GENERAL DESCRIPTION: Elderly female lying in bed in no distress RESPIRATORY SYSTEM: Unlabored breathing , decreased breath sounds at bases HEART: S1 S2 regular rate and rhythm ,no loud murmurs ABDOMEN: Soft , no tenderness EXTREMITIES: No edema feet - Labs CBC & Chem 7: 05/11/23 06:20 05/14/23 05:55 Labs: Abnormal Lab Results - Last 24 Hours (Table) 05/13/23 05/14/23 05/14/23 Range/Units 20:01 05:55 06:59 BUN 39.0 H (9.0-27.0) mg/dL Creatinine 2.2 H (0.6-1.5) mg/dL Est GFR (CKD-EPI) 22 L (>=60) POC Glucose (mg/dL) 111 H 118 H (70-110) mg/dL Calcium 8.2 L (8.7-10.3) mg/dL 05/14/23 Range/Units 11:46 BUN (9.0-27.0) mg/dL Creatinine (0.6-1.5) mg/dL Est GFR (CKD-EPI) (>=60) POC Glucose (mg/dL) 131 H (70-110) mg/dL Calcium (8.7-10.3) mg/dL Microbiology - Last 24 Hours (Table) 05/10/23 11:13 Blood Culture - Preliminary Blood Assessment and Plan (1) UTI (urinary tract infection) Current Visit: Yes Status: Acute Code(s): N39.0 - URINARY TRACT INFECTION, SITE NOT SPECIFIED SNOMED Code(s): 79120960 (2) Bacteremia Current Visit: Yes Status: Acute Code(s): R78.81 - BACTEREMIA SNOMED Code(s): 0736697 (3) Leukocytosis Current Visit: No Status: Acute Code(s): D72.829 - ELEVATED WHITE BLOOD CELL COUNT, UNSPECIFIED SNOMED Code(s): 166646232 Plan: 1patient presented to outside facility with weakness lethargy patient did have elevated white count positive UA concerning for a symptomatic urinary tract infection likely from enteric gram-negative pathogen keeping in mind the patient is a usp resident we will need to cover for the resistant gram- negative. 2positive blood culture with Streptococcus agalactiae at outside facility , blood culture drawn here has been negative patient currently do not have any skin or soft tissue lesion and urine is growing E. coli. 3patient did have some clinical improvement, repeat cultures are so far negative 4-the patient will continue the patient Rocephin while inpatient and finishing therapy with a short course of oral Ceftin on discharge Dictation was produced using [employer] dictation software. please excuse any grammatical, word or spelling errors. Time with Patient: Less than 30
--- NOTE | 2023-05-14 13:54 | P.DS ---
Providers Date of admission: 05/04/23 04:32 Expected date of discharge: 05/14/23 Attending physician: Jeff Schumacher Consults: 05/04/23 04:32 Consult Physician Routine Consulting Provider: Elliot Berger Consult Reason/Comments: nitrite positive urine Do you want consulting provider notified?: Yes 05/04/23 04:35 Consult Physician Routine Consulting Provider: Aleksandra Flores Consult Reason/Comments: ckd Do you want consulting provider notified?: Yes 05/10/23 09:15 Consult Physician Stat Consulting Provider: Chester Melendez Consult Reason/Comments: mentation change Do you want consulting provider notified?: Yes Primary care physician: Farhad Flower [facility] Course: 78-year-old female she is a resident at [facility] in [facility]. She was found to have signs of lethargy and also fever. She was transferred to [facility] ER for further evaluation. Patient allegedly a low-grade temperature 100.0. She seemed to be lethargic according to staff. The medic for at least 2 days and progressively she look like she was getting worse. She had labs drawn showing a white count of 29. Patient was seen at urinary tract infection were there is concern that patient was having a significant UTI. Patient is a poor historian. Patient present illness Limited due to limited barrier. Patient denies any pain at this time. patient did have a positive UA with large leukocyte esterase more than 22 WBC white count 21.2 however the left shift and did have a creatinine of 3.70 liver exams are normal Patient remains on IV cefepime per ID recommendations; urine culture growing gram-negative bacilli; final culture and sensitivities pending - Lab review shows improved white blood count of 11.5, sodium is improved at 134; BUN/creatinine remains elevated at 67/3.73; renal ultrasound is completed and is unremarkable; nephrology on board 05/06/2023 patient is seen and evaluated in room at bedside; remains afebrile patient is breathing comfortably on 2 L nasal cannula oxygen denies any chest pain shortness of breath or cough no nausea vomiting no abdominal pain no diarrhea. Patient white count is down to 11.5 creatinine down to 3.45 from 3.73 yesterday; preliminary urine culture reveals gram-negative bacilli. patient presented to outside facility with weakness lethargy patient did have elevated white count positive UA concerning for a symptomatic urinary tract infection likely from enteric gram-negative pathogen keeping in mind the patient is a penitentiary resident we will need to cover for the resistant gram- negative. patient with renal insufficiency high risk of nephrotoxicity. patient with positive blood culture at the outside facility gram-positive cocci in chain questionably contaminant blood cultures will be repeated to document clearance to hold on adding vancomycin as the patient white count is trending down and the patient did have renal insufficiency. patient to continue cefepime while awaiting further urine culture to finalize and monitor clinical course closely May 07: Patient seen by [facility] hospitalists. May 08: I assumed care of the patient today. Laying in bed. Appetite fair. Diet. On IV ceftriaxone. Blood culture from outside facility positive but felt to be contaminant as per ID. May 09: Laying in bed. Tired. Oral intake fluctuating. On IV ceftriaxone. Spoke to patient's Dr. Carrasco on the phone. At baseline patient is nonambulatory. I did explain that patient's overall prognosis is guarded. At this point he wished for her to continue to be full code. May 10: Patient overnight took a turn for the worse. Became rather lethargic. Became severely hypothermic. Rectal temperature went down to 91.2. Aleshia hugger was given. Patient became hypoglycemic laying down to about 20. Dextrose drip was ordered. Became more lethargic. Computed tomography scan of the brain was ordered.-showed chronic changes. No focal findings. Neurology was consulted. EEG was ordered. Spoke to Dr. Weems from ICU. Patient is moved to the ICU. I spoke to patient's daughter at length. Suggested DO NOT RESUSCITATE. Prognosis not good. Daughter will talk to her and other family members about DO NOT RESUSCITATE. I also attached about hospice. Given the poor quality of life. Check sticks are reviewed by me showed right basilar infiltrate/effusion. Total time spent today about 70 minutes Advance care planning: Discussed at length with patient daughter on the telephone. It was discussed that patient's chronic medical debility. Bed bound. Advanced dementia. Has not really been ordered to conversation. Chronic foot drop. CK D. Now decreased oral intake. Also feeding tube was discussed. At this point patient's daughter does not want the same. She will come to see the patient tomorrow and decide about CODE STATUS. Currently to remain full code. Time spent for this about 25 minutes. : ICU. Doing better. More awake. Able to answer simple questions. Dextrose drip discontinued. Accu-Cheks went up to 200. Eating some. IV fluids discontinued. Per nephrology given 1 dose of Lasix. Breathing stable. Levemir was held last night. Resume at 14 units daily at bedtime May 12: In bed. Answering simple questions. Eating some. Accu-Cheks are good. Discussed with Dr. Carracso over the phone. Updated. Prognosis guarded. The patient is better than the last 2 days. May 13: Propped up in bed. Decreased appetite. Answering simple questions. Sugar did drop down a bit this morning. Levemir discontinued. Plan for DC to ECF tomorrow. Accu-Chek 59 this morning. May 14: Reclining in bed. Answering simple questions. Eating about 25%. Concern remains discontinued. Normally do Accu-Cheks with sliding scale. Discharged to ECF today. Prognosis guarded. DC antibiotics per ID. Discussion and discharge planning more than 35 minutes Past medical history to include: Diabetes, paroxysmal atrial fibrillation, Parkinson's, epilepsy, hyperlipidemia, anxiety, depression, sick sinus syndrome with a pacemaker, PAD, CK D stage III, gout, dementia, GERD, non-ambulatory Social history: lives at [facility]. Needs a Nba lift a wheelchair. Incontinent. She can feed herself. No history of smoking alcohol known. Physical examination: VITAL SIGNS: 98.5, 79, 16, 164/73, 100% room air GENERAL: ., Reclining in bed, answering simple questions EYES: Pupils equal. Conjunctiva normal. HEENT: External appearance of nose and ears normal, oral cavity dry mucous membrane NECK: JVD unable to assess; masses not palpable. HEART: Heart sounds irregular; some edema. LUNGS:[ Respiratory rate increased; decreased breath sounds. ABDOMEN: Soft, nontender, liver spleen not palpable, no masses palpable. PSYCH: Answering simple questions . MUSCULOSKELETAL:No Clubbing/cyanosis;muscles-grossly intact. Evidence of OA. Bilateral foot drop INVESTIGATIONS, reviewed in the clinical context: May 11: White count 11.5 hemoglobin 9.5 platelets 222 sodium 132 potassium 4.6 BUN 51 and creatinine 2.61 May 10: Sodium 136 potassium 4.9 BUN 58 creatinine 2.77 albumin 2.2 May 08: White count 14 hemoglobin 10.3 platelets 209 dose potassium 4.8 BUN 63 creatinine 2.2 to Urine culture: E. coli Previous labs: Creatinine 3.86 on 01/23/2023 Assessment and plan: -Severe hypothermia. Probably secondary to severe hypoglycemia from decreased oral intake.: Corrected Aleshia hugger initially. -Severe hypoglycemia.: Corrected Dextrose drip-discontinued. Eating better Levemir discontinued -Acute UTI with sepsis. From E. coli.: IV ceftriaxone Follow with ID -Sepsis secondary to UTI: Improved IV fluids. Antibiotics -Probable contaminant blood culture -Acute kidney injury, suspect ATN.: Secondary to sepsis.: Better Admission creatinine 3.70. Now down to 2.2 -Chronic kidney disease stage IV secondary to diabetic kidney disease and cardiorenal syndrome. Baseline creatinine around 2.5 -Acute delirium metabolic encephalopathy UTI from presentation, presenting initially as lethargy. Better -Depression and anxiety Zoloft. Klonopin -Diabetes mellitus type 2, chronically on insulin Levemir had last night. Resume 14 units.... Follow Accu-Cheks with sliding scale insulin -Diabetic peripheral neuropathy Neurontin 300 mg daily at bedtime -Major cognitive impairment/dementia -Paroxysmal atrial fibrillation Eliquis -sick sinus syndrome with a pacemaker -Chronic medical debility, - baseline needs Nba lift. Fall precautions -Essential hypertension Coreg 25 mg by mouth twice a day -Chronic gout Allopurinol 300 mg a day -Hyperlipidemia Lipitor 40 mg daily at bedtime -Chronic kidney disease stage III likely from diabetic nephropathy and hypertensive nephrosclerosis Renal ultrasound showing bilateral cortical thinning. -Chronic pain syndrome [place] 5 one tablet 3 times a day -Full code Disposition: [facility] facility. Plan - Discharge Summary Discharge Rx Participant: No New Discharge Prescriptions: New Apixaban [Eliquis] 2.5 mg PO BID tab Nystatin 100,000 Unit/gm Powd [Mycostatin Powder] 1 applic TOPICAL BID each Sodium Bicarbonate Tab 650 mg PO BID tab Continue INSULIN LISPRO (HumaLOG) [humaLOG] See Protocol SQ AC-TID Ferrous Sulfate [Iron (65 MG Elemental)] 325 mg PO BID@0700,1700 Lactulose [Cephulac] 20 gm PO DAILY PRN ml PRN Reason: Constipation Calcium Acetate [PhosLo] 667 mg PO DAILY@1200 Acetaminophen Tab [Tylenol] 500 mg PO Q6HR PRN tab PRN Reason: Fever > 101 And/ Or Pain Ipratropium-Albuterol Nebulize [Duoneb 0.5 mg-3 mg/3 ml Soln] 3 ml INHALATION RT-BID PRN PRN Reason: Wheezing Ondansetron [Zofran] 4 mg PO Q6H PRN PRN Reason: Nausea And Vomiting Omeprazole 20 mg PO DAILY@0700 Atorvastatin [Lipitor] 40 mg PO HS@2100 Sodium Chloride [Saline Mist] 1 spray EA NOSTRIL Q2H PRN PRN Reason: Congestion bisacodyL [Dulcolax] 10 mg RECTAL DAILY PRN PRN Reason: Constipation carvediloL [Coreg] 25 mg PO BID@0700,1700 calcitrioL [Calcitriol] 0.25 mcg PO MOTUWETHSA@1200 allopurinoL [Zyloprim] 300 mg PO DAILY@0700 Magnesium Oxide [Mag-Ox] 400 mg PO DAILY@1200 clonazePAM [KlonoPIN] 0.5 mg PO HS #3 tab Gabapentin [Neurontin] 300 mg PO HS #3 cap Changed HYDROcodone/APAP 5-325MG [[place] 5-325] 1 tab PO TID@0700,1200,2100 PRN #9 tab PRN Reason: Pain Discontinued Sertraline [Zoloft] 25 mg PO DAILY@0700 Rivaroxaban [Xarelto] 2.5 mg PO DAILY@0700 Potassium Chloride [Klor-Con M10] 10 meq PO DAILY@0700 Insulin Glargine,Hum.rec.anlog [Lantus Solostar Pen] 25 units SQ HS #0 Furosemide [Lasix] 80 mg PO DAILY@0700 Loperamide [Imodium] 2 mg PO QID PRN PRN Reason: Loose Stool Discharge Medication List Atorvastatin [Lipitor] 40 mg PO HS@2100 12/29/21 [History] Ferrous Sulfate [Iron (65 MG Elemental)] 325 mg PO BID@0700,1700 12/29/21 [History] INSULIN LISPRO (HumaLOG) [humaLOG] See Protocol SQ AC-TID 12/29/21 [History] Omeprazole 20 mg PO DAILY@0700 12/29/21 [History] Lactulose [Cephulac] 20 gm PO DAILY PRN ml 01/05/22 [Rx] Calcium Acetate [PhosLo] 667 mg PO DAILY@1200 01/19/23 [History] Sodium Chloride [Saline Mist] 1 spray EA NOSTRIL Q2H PRN 01/19/23 [History] allopurinoL [Zyloprim] 300 mg PO DAILY@0700 01/19/23 [History] bisacodyL [Dulcolax] 10 mg RECTAL DAILY PRN 01/19/23 [History] calcitrioL [Calcitriol] 0.25 mcg PO MOTUWETHSA@1200 01/19/23 [History] carvediloL [Coreg] 25 mg PO BID@0700,1700 01/19/23 [History] Acetaminophen Tab [Tylenol] 500 mg PO Q6HR PRN tab 01/23/23 [Rx] Ipratropium-Albuterol Nebulize [Duoneb 0.5 mg-3 mg/3 ml Soln] 3 ml INHALATION RT-BID PRN 05/04/23 [History] Magnesium Oxide [Mag-Ox] 400 mg PO DAILY@1200 05/04/23 [History] Ondansetron [Zofran] 4 mg PO Q6H PRN 05/04/23 [History] Apixaban [Eliquis] 2.5 mg PO BID tab 05/14/23 [Rx] Gabapentin [Neurontin] 300 mg PO HS #3 cap 05/14/23 [Rx] HYDROcodone/APAP 5-325MG [[place] 5-325] 1 tab PO TID@0700,1200,2100 PRN #9 tab 05/14/23 [Rx] Nystatin 100,000 Unit/gm Powd [Mycostatin Powder] 1 applic TOPICAL BID each 05/14/23 [Rx] Sodium Bicarbonate Tab 650 mg PO BID tab 05/14/23 [Rx] clonazePAM [KlonoPIN] 0.5 mg PO HS #3 tab 05/14/23 [Rx] Follow up Appointment(s)/Referral(s): Farhad Flower MD [Primary Care Provider] - 1-2 days Jay Jay Hahn DO [STAFF PHYSICIAN] - 1 Week Activity/Diet/Wound Care/Special Instructions: Antibiotic per ID
[2023-05-14 17:12] LABS: Glucose,Whole Blood 116 mg/dL (70-110)
--- NOTE | 2023-05-14 19:34 | P.PN ---
Subjective Patient is seen for f/u for CKD and ANDRA. Renal function has improved. No complaints today. Tolerating oral intake. Objective - Vital Signs Vital signs: Vital Signs Temp 98.5 F 05/14/23 12:22 Pulse 79 05/14/23 12:22 Resp 16 05/14/23 12:22 BP 164/73 05/14/23 12:22 Pulse Ox 100 05/14/23 12:22 FiO2 21 05/11/23 10:18 Intake & Output 05/14/23 05/14/23 05/15/23 06:59 18:59 06:59 Intake Total 400 Output Total 550 525 Balance -150 -525 Weight 92.9 kg Intake: Oral 400 Output: Urine 550 525 Other: Voiding Method Indwelling Catheter Indwelling Catheter # Bowel Movements 1 - Exam Awake. comfortable Lngs are clear CVS S1 and S2 Abdomen is soft, non tender Extremities show trace edema. - Labs CBC & Chem 7: 05/11/23 06:20 05/14/23 05:55 Labs: Abnormal Lab Results - Last 24 Hours (Table) 05/13/23 05/14/23 05/14/23 Range/Units 20:01 05:55 06:59 BUN 39.0 H (9.0-27.0) mg/dL Creatinine 2.2 H (0.6-1.5) mg/dL Est GFR (CKD-EPI) 22 L (>=60) POC Glucose (mg/dL) 111 H 118 H (70-110) mg/dL Calcium 8.2 L (8.7-10.3) mg/dL 05/14/23 05/14/23 Range/Units 11:46 17:10 BUN (9.0-27.0) mg/dL Creatinine (0.6-1.5) mg/dL Est GFR (CKD-EPI) (>=60) POC Glucose (mg/dL) 131 H 116 H (70-110) mg/dL Calcium (8.7-10.3) mg/dL Microbiology - Last 24 Hours (Table) 05/10/23 11:13 Blood Culture - Preliminary Blood Assessment and Plan Assessment: 1. Chronic kidney disease NKF stage IV with baseline creatinine around 3 mg/dL and staying at 3.7-3.8 since January 2023. 2. UTI s/p antibiotics. Urine cx grew E Coli 3. Mental status changes related to underlying infection, improved 4. Anemia of chronic disease 5. Hyponatremia, hypovolemic improved Plan: F/u as out patient for CKD.
== END 2023-05-14 18:42 | DRG 871 ==
LOC: EC 02:29 → 3SCARD 04:32 → 2SICU 05-10 11:40 → 5NMEDONC 05-11 17:13
PROVIDERS: ADMIT Hospitalist; ATTEND Hospitalist
PROC: 05H933Z Insertion of Infusion Device into Right Brachial Vein, Percutaneous Approach (ICD-10-PCS; principal; 2023-05-08 18:30)
PROC: 05HB33Z Insertion of Infusion Device into Right Basilic Vein, Percutaneous Approach (ICD-10-PCS; 2023-05-10 13:30)
DX: A41.51 Sepsis due to Escherichia coli [E. coli] (principal); G93.41 Metabolic encephalopathy; N17.0 Acute kidney failure with tubular necrosis; N39.0 Urinary tract infection, site not specified; N18.4 Chronic kidney disease, stage 4 (severe); J98.11 Atelectasis; E87.1 Hypo-osmolality and hyponatremia; F02.C3 Dementia in other diseases classified elsewhere, severe, with mood disturbance; F02.C4 Dementia in other diseases classified elsewhere, severe, with anxiety; E11.649 Type 2 diabetes mellitus with hypoglycemia without coma; I49.5 Sick sinus syndrome; E83.9 Disorder of mineral metabolism, unspecified; D63.1 Anemia in chronic kidney disease; I95.9 Hypotension, unspecified; E11.22 Type 2 diabetes mellitus with diabetic chronic kidney disease; E11.42 Type 2 diabetes mellitus with diabetic polyneuropathy; E11.51 Type 2 diabetes mellitus with diabetic peripheral angiopathy without gangrene; I13.10 Hypertensive heart and chronic kidney disease without heart failure, with stage 1 through stage 4 chronic kidney disease, or unspecified chronic kidney disease; G20 Parkinson's disease; G40.909 Epilepsy, unspecified, not intractable, without status epilepticus; I48.0 Paroxysmal atrial fibrillation; R65.20 Severe sepsis without septic shock; Z79.4 Long term (current) use of insulin; E78.5 Hyperlipidemia, unspecified; E86.1 Hypovolemia; G89.4 Chronic pain syndrome; I69.30 Unspecified sequelae of cerebral infarction; R13.10 Dysphagia, unspecified; F32.A Depression, unspecified; F41.9 Anxiety disorder, unspecified; M21.379 Foot drop, unspecified foot; M1A.9XX0 Chronic gout, unspecified, without tophus (tophi); K29.70 Gastritis, unspecified, without bleeding; K59.00 Constipation, unspecified; R32 Unspecified urinary incontinence; R68.0 Hypothermia, not associated with low environmental temperature; K21.9 Gastro-esophageal reflux disease without esophagitis; Z79.01 Long term (current) use of anticoagulants; Z79.891 Long term (current) use of opiate analgesic; Z79.899 Other long term (current) drug therapy; Z95.0 Presence of cardiac pacemaker; Z74.01 Bed confinement status; Z88.6 Allergy status to analgesic agent; Z88.5 Allergy status to narcotic agent
CPT/HCPCS: 36410; 36415; 36600; 51702; 70450; 71045; 76770; 76937; 80048; 80053; 81001; 82140; 82533; 82728; 82805; 83036; 83540; 83550; 83605; 83735; 84100; 84145; 85025; 85610; 85730; 86140; 87040; 87077; 87086; 87186; 93005; 94760; 95816; 96360; 99285

== ENCOUNTER 2023-08-06 18:31 | Inpatient (IN) | payer MEDICARE, OTHER ==
[2023-08-06] MEDS ORDERED: VANCOMYCIN IV PER PHARMACY 1 EACH MISC MISCELLANE PRN (19:52)
--- NOTE | 2023-08-06 19:59 | ED ---
General Adult HPI - General Chief complaint: Skin/Abscess/Foreign Body Stated complaint: Left knee wound Time Seen by Provider: 08/06/23 18:40 Source: patient, EMS, RN notes reviewed, old records reviewed Mode of arrival: EMS Limitations: no limitations - History of Present Illness Initial comments: This is an 78-year-old female presents emergency Department with a chronically open and draining knee wound over her left knee. Patient had surgery on that knee down in [place] has recently seen Dr. Jones on a couple of occasions and he recommended that the patient come into the hospital be put on antibiotics to Dr. Berger and Dr. Akhtar for possible amputation. According to Dr. Jones family is well aware that the amputation is probably the plan going forward. Patient is nonambulatory she also has dementia. Patient does not speak Ecu[place]orean very well so is not able to help us with any other history at this time currently no family members with the patient. According to Dr. Jones this is a chronic wound - Related Data Home Medications Medication Instructions Recorded Confirmed Atorvastatin [Lipitor] 40 mg PO HS@2100 12/29/21 05/04/23 Ferrous Sulfate [Iron (65 MG 325 mg PO BID@0700,1700 12/29/21 05/04/23 Elemental)] INSULIN LISPRO (HumaLOG) [humaLOG] See Protocol SQ AC-TID 12/29/21 05/04/23 Omeprazole 20 mg PO DAILY@0700 12/29/21 05/04/23 Calcium Acetate [PhosLo] 667 mg PO DAILY@1200 01/19/23 05/04/23 Sodium Chloride [Saline Mist] 1 spray EA NOSTRIL Q2H PRN 01/19/23 05/04/23 allopurinoL [Zyloprim] 300 mg PO DAILY@0700 01/19/23 05/04/23 bisacodyL [Dulcolax] 10 mg RECTAL DAILY PRN 01/19/23 05/04/23 calcitrioL [Calcitriol] 0.25 mcg PO MOTUWETHSA@1200 01/19/23 05/04/23 carvediloL [Coreg] 25 mg PO BID@0700,1700 01/19/23 05/04/23 Ipratropium-Albuterol Nebulize 3 ml INHALATION RT-BID PRN 05/04/23 05/04/23 [Duoneb 0.5 mg-3 mg/3 ml Soln] Magnesium Oxide [Mag-Ox] 400 mg PO DAILY@1200 05/04/23 05/04/23 Ondansetron [Zofran] 4 mg PO Q6H PRN 05/04/23 05/04/23 Previous Rx's Medication Instructions Recorded Lactulose [Cephulac] 20 gm PO DAILY PRN ml 01/05/22 Acetaminophen Tab [Tylenol] 500 mg PO Q6HR PRN tab 01/23/23 Apixaban [Eliquis] 2.5 mg PO BID tab 05/14/23 Cefuroxime [Ceftin] 250 mg PO BID 5 Days #10 tab 05/14/23 Gabapentin [Neurontin] 300 mg PO HS #3 cap 05/14/23 HYDROcodone/APAP 5-325MG [[place] 1 tab PO TID@0700,1200,2100 PRN #9 05/14/23 5-325] tab Nystatin 100,000 Unit/gm Powd 1 applic TOPICAL BID each 05/14/23 [Mycostatin Powder] Sodium Bicarbonate Tab 650 mg PO BID tab 05/14/23 clonazePAM [KlonoPIN] 0.5 mg PO HS #3 tab 05/14/23 Allergies Allergy/AdvReac Type Severity Reaction Status Date / Time codeine Allergy Unknown Verified 08/06/23 18:45 hydromorphone [From Dilaudid] Allergy Unknown Verified 08/06/23 18:45 acetaminophen AdvReac see comment Verified 08/06/23 18:45 Review of Systems ROS Statement: Those systems with pertinent positive or pertinent negative responses have been documented in the HPI. ROS Other: All systems not noted in ROS Statement are negative. Past Medical History Past Medical History: Atrial Fibrillation, Chest Pain / Angina, Dementia, Diabetes Mellitus, GERD/Reflux, Hyperlipidemia, Hypertension, Musculoskeletal Disorder, Neurologic Disorder, Pneumonia, Renal Disease, Seizure Disorder, Vascular Disorder Additional Past Medical History / Comment(s): IDDM type II, paroxysmal atrial fibrilation, parkinsons, epilepsy, muscle weakness, anemia, hyperkalemia, sick sinus syndrome with pacemaker, PVD, CKD stage 3, gastritis, dysphagia, gout History of Any Multi-Drug Resistant Organisms: None Reported Past Surgical History: Pacemaker Past Anesthesia/Blood Transfusion Reactions: No Reported Reaction Type of Cardiac Device: Permanent Pacemaker Device Placement Date:: unknown Past Psychological History: Depression Smoking Status: Never smoker Past Alcohol Use History: None Reported Past Drug Use History: None Reported - Past Family History Father Family Medical History: Unable to Obtain Mother Family Medical History: Unable to Obtain General Exam - General Exam Comments Initial Comments: GENERAL: Patient is well-developed and well-nourished. Patient is nontoxic and well- hydrated and is in no acute distress. ENT: Neck is soft and supple. No significant lymphadenopathy is noted. Oropharynx is clear. Moist mucous membranes. Neck has full range of motion without eliciting any pain. EYES: The sclera were anicteric and conjunctiva were pink and moist. Extraocular movements were intact and pupils were equal round and reactive to light. Eyelids were unremarkable. PULMONARY: Unlabored respirations. Good breath sounds bilaterally. No audible rales rhonchi or wheezing was noted. CARDIOVASCULAR: She is a regular rate and rhythm ABDOMEN: Soft and nontender with normal bowel sounds. SKIN: Skin is clear with no lesions or rashes and otherwise unremarkable. NEUROLOGIC: Patient is alert and oriented unable to assess since she is not speaking Ecuadorean. Cranial nerves II through XII are grossly intact. Motor and sensory are also intact. MUSCULOSKELETAL: Patient's left knee has an open wound and has some drainage. LYMPHATICS: No significant lymphadenopathy is noted PSYCHIATRIC: Unable to assess secondary to the fact patient does not speak Ecuadorean well Limitations: no limitations Course Vital Signs 08/06/23 18:39 Temperature 97.9 F Pulse Rate 77 Respiratory 16 Rate Blood Pressure 198/86 O2 Sat by Pulse 97 Oximetry Medical Decision Making - Medical Decision Making Was pt. sent in by a medical professional or institution (, PA, CHILD CARE LEAD TEACHER, urgent care, hospital, or alf...) When possible be specific @ -Dr. Jones wanted the patient sent to this facility and admitted Did you speak to anyone other than the patient for history (EMS, parent, family, police, friend...)? What history was obtained from this source @ -EMS gave the initial history and Dr. manley called me later gave me the remaining history Did you review nursing and triage notes (agree or disagree)? Why? @ -I reviewed and agree with nursing and triage notes Were old charts reviewed (outside hosp., previous admission, EMS record, old EKG, old radiological studies, urgent care reports/EKG's, alf records)? Report findings @ -I reviewed charts and prior lab work on this patient Differential Diagnosis (chest pain, altered mental status, abdominal pain women, abdominal pain men, vaginal bleeding, weakness, fever, dyspnea, syncope, headache, dizziness, GI bleed, back pain, seizure, CVA, palpatations, mental health, musculoskeletal)? @ -not applicable EKG interpreted by me (3pts min.). @ -As above X-rays interpreted by me (1pt min.). @ -None done CT interpreted by me (1pt min.). @ -None done U/S interpreted by me (1pt. min.). @ -None done What testing was considered but not performed or refused? (CT, X-rays, U/S, labs)? Why? @ -None What meds were considered but not given or refused? Why? @ -None Did you discuss the management of the patient with other professionals (professionals i.e. , PA, CHILD CARE LEAD TEACHER, lab, RT, psych nurse, social sciences lecturer, journeyman molder, teacher, environmental officer, case advocate)? Give summary @ -With Dr. Jones and Yosi billings physician's in the agreed to admit the patient. Was smoking cessation discussed for >3mins.? @ -No Was critical care preformed (if so, how long)? @ -No Were there social determinants of health that impacted care today? How? (Homele ssness, low income, unemployed, alcoholism, drug addiction, transportation, low edu. Level, literacy, decrease access to med. care, skilled nursing, rehab)? @ -No Was there de-escalation of care discussed even if they declined (Discuss DNR or withdrawal of care, Hospice)? DNR status @ -No What co-morbidities impacted this encounter? (DM, HTN, Smoking, COPD, CAD, Cancer, CVA, ARF, Chemo, Hep., AIDS, mental health diagnosis, sleep apnea, morbid obesity)? @ -None Was patient admitted / discharged? Hospital course, mention meds given and route, prescriptions, significant lab abnormalities, going to OR and other pertinent info. @ -I started the patient on vancomycin as well as Rocephin and patient will be admitted to awa physician's and Dr. Jones will be consulted as will Dr. Akhtar and Sayed. Undiagnosed new problem with uncertain prognosis? @ -No Drug Therapy requiring intensive monitoring for toxicity (Heparin, Nitro, Insulin, Cardizem)? @ -No Were any procedures done? @ -No Diagnosis/symptom? @ -Knee infection Acute, or Chronic, or Acute on Chronic? @ -Acute on chronic Uncomplicated (without systemic symptoms) or Complicated (systemic symptoms)? @ -Complicated Side effects of treatment? @ -No Exacerbation, Progression, or Severe Exacerbation? @ -No Poses a threat to life or bodily function? How? (Chest pain, [place], [place], pneumonia, PE, COPD, DKA, ARF, appy, cholecystitis, CVA, Diverticulitis, Homicidal, Suicidal, threat to staff... and all critical care pts) @ -Yes this can lead to sepsis and end organ dysfunction Disposition Clinical Impression: Infection of knee Disposition: ADMITTED IP TO THIS HOSP Referrals: Acosta Melvin MD [Primary Care Provider] - 1-2 days Time of Disposition: 20:24
[2023-08-06] MEDS ORDERED: HYDROmorphone 0.5 MG/0.5 ML SYRINGE IVP STA (20:20)
[2023-08-06] MEDS ORDERED: SODIUM CHLORIDE 0.9% 1,000 ML IV ONE (20:24)
[2023-08-06] MEDS ORDERED: VANCOMYCIN 1,500 MG in SODIUM CHLORIDE 0.9% 500 ML 500 ML IVPB ONE (21:00)
[2023-08-06 22:16] LABS: Anisocytosis Slight; Basophils % (A) 0 %; Eosinophils # (A) 0.4 k/uL (0-0.7); Eosinophils % (A) 3 %; HCT 36.9 % (34.0-46.0); HGB 11.4 gm/dL (11.4-16.0); Hypochromasia Marked; Lymphocytes # (A) 2.1 k/uL (1.0-4.8); Lymphocytes % (A) 20 %; MCHC 30.8 g/dL (31.0-37.0); MCV 100.8 fL (80.0-100.0); Macrocytosis Slight; Mean Platelet Volume 8.2; Monocytes # (A) 0.6 k/uL (0-1.0); Monocytes % (A) 5 %; Neutrophils # (A) 7.5 k/uL (1.3-7.7); Neutrophils % (A) 71 %; Platelet Count 234 k/uL (150-450); RBC 3.66 m/uL (3.80-5.40); RDW 16.8 % (11.5-15.5); WBC 10.7 k/uL (3.8-10.6)
[2023-08-06 22:26] LABS: ALT 22 U/L (4-34); AST 30 U/L (14-36); African American GFR (CKD) 19 (>60 ml/min/1.73 sqM); Alkaline Phosphatase 106 U/L (38-126); Anion Gap 10 mmol/L; Blood Urea Nitrogen 44 mg/dL (7-17); Calcium 8.5 mg/dL (8.4-10.2); Carbon Dioxide 25 mmol/L (22-30); Chloride 104 mmol/L (98-107); Glucose 144 mg/dL (74-99); Non-African American GFR(CKD) 17 (>60 ml/min/1.73 sqM); Potassium 4.6 mmol/L (3.5-5.1); Sodium 139 mmol/L (137-145); Total Bilirubin 0.7 mg/dL (0.2-1.3); Total Protein 6.5 g/dL (6.3-8.2)
--- NOTE | 2023-08-07 00:25 | P.HPIM ---
History of Present Illness H&P Date: 08/06/23 Patient is a 78-year-old female with an extensive PMH: of Type II DM, sick sinus syndrome status post pacemaker, seizure disorder, Afib on Eliquis, chronic kidney disease, dementia, hypertension, and hyperlipidemia who was sent from [facility] for a chronic left lower extremity ulcer. History obtained from chart and from the ED provider as the patient was a poor historian. History obtained via Macedonian video teacher assistant. The patient stated that she has had this nonhealing wound of the left leg for "a long time". She does not know what has been done for it so far or what the plan is. As per the ED provider, the patient has been following with Dr. Jones who sent the patient in for IV antibiotics and vascular surgery consult for possible amputation. The patient reported chronic severe left knee pain especially with movement. Denied fever, chills, chest pain, shortness of breath, nausea, vomiting. Upon chart review, prior hospitalization from 05/04/23 for UTI had no reports of left lower extremity ulcer. Laboratory evaluation in the emergency room revealed leukocytosis of 10.7, MCV 100.8, BUN 44, creatinine 2.64, ED documentation reviewed and case discussed with ED provider. Review of systems: Pertinent positives and negatives as discussed in HPI, a complete review of systems was performed and all other systems are negative. Physical examination: Vital signs reviewed General: non toxic, no distress, appears at stated age, obese Derm: Left lower extremity purulent base ulcer overlying the left knee with surrounding erythema 4 cm, warm Head: atraumatic, normocephalic, symmetric Eyes: EOMI, no lid lag, anicteric sclera, pupils equal round reactive to light ENT: Nose and ears atraumatic Neck: No cervical lymphadenopathy, trachea midline, supple Mouth: no lip lesion, mucus membranes moist Cardiovascular: S1S2 reg, no murmur, positive dorsalis pedis pulse bilateral, no edema Lungs: CTA bilateral, no rhonchi, no rales, no accessory muscle use Abdominal: soft, nontender to palpation, no guarding Ext: no gross muscle atrophy, no contractures, Neuro: CN II-XI grossly intact, no gross focal neuro deficits Psych: Alert, oriented to person and place, not oriented to time, appropriate affect Assessment: Left lower extremity ulcer Chronic conditions: Type II DM, sick sinus syndrome status post pacemaker, seizure disorder, Afib, chronic kidney disease, dementia, hypertension, and hyperlipidemia Imaging: None performed Data Review: Laboratory evaluation in the emergency room revealed leukocytosis of 10.7, MCV 100.8, BUN 44, creatinine 2.64, Plan: Follow up blood and tissue culture Continue with IV antibiotics vancomycin and Zosyn Infectious disease, Gen. surgery, and vascular surgery consulted Continue home medications DVT prophylaxis: Eliquis The patient is admitted with an anticipated greater than 2 midnight stay for evaluation of ulcer CODE STATUS: Full Code Discussed with: Patient Anticipated discharge place: Home Past Medical History Past Medical History: Atrial Fibrillation, Chest Pain / Angina, Dementia, Diabetes Mellitus, GERD/Reflux, Hyperlipidemia, Hypertension, Musculoskeletal Disorder, Neurologic Disorder, Pneumonia, Renal Disease, Seizure Disorder, Vascular Disorder Additional Past Medical History / Comment(s): IDDM type II, paroxysmal atrial fibrilation, parkinsons, epilepsy, muscle weakness, anemia, hyperkalemia, sick sinus syndrome with pacemaker, PVD, CKD stage 3, gastritis, dysphagia, gout History of Any Multi-Drug Resistant Organisms: None Reported Past Surgical History: Pacemaker Past Anesthesia/Blood Transfusion Reactions: No Reported Reaction Type of Cardiac Device: Permanent Pacemaker Device Placement Date:: unknown Past Psychological History: Depression Smoking Status: Never smoker Past Alcohol Use History: None Reported Past Drug Use History: None Reported - Past Family History Father Family Medical History: Unable to Obtain Mother Family Medical History: Unable to Obtain Medications and Allergies Home Medications Medication Instructions Recorded Confirmed Type Atorvastatin [Lipitor] 40 mg PO HS@2100 12/29/21 08/06/23 History Ferrous Sulfate [Iron (65 MG 325 mg PO BID 12/29/21 08/06/23 History Elemental)] Omeprazole 20 mg PO DAILY 12/29/21 08/06/23 History Lactulose [Cephulac] 20 gm PO DAILY PRN ml 01/05/22 08/06/23 Rx Calcium Acetate [PhosLo] 667 mg PO DAILY 01/19/23 08/06/23 History Sodium Chloride [Saline Mist] 1 spray EA NOSTRIL Q2H PRN 01/19/23 08/06/23 History allopurinoL [Zyloprim] 300 mg PO DAILY 01/19/23 08/06/23 History bisacodyL [Dulcolax] 10 mg RECTAL DAILY PRN 01/19/23 08/06/23 History calcitrioL [Calcitriol] 0.25 mcg PO MOTUWETHSA 01/19/23 08/06/23 History carvediloL [Coreg] 25 mg PO BID 01/19/23 08/06/23 History Acetaminophen Tab [Tylenol] 500 mg PO Q6HR PRN tab 01/23/23 08/06/23 Rx Ipratropium-Albuterol Nebulize 3 ml INHALATION RT-BID PRN 05/04/23 08/06/23 History [Duoneb 0.5 mg-3 mg/3 ml Soln] Magnesium Oxide [Mag-Ox] 400 mg PO DAILY 05/04/23 08/06/23 History Ondansetron [Zofran] 4 mg PO Q6H PRN 05/04/23 08/06/23 History Apixaban [Eliquis] 2.5 mg PO BID tab 05/14/23 08/06/23 Rx Sodium Bicarbonate Tab 650 mg PO BID tab 05/14/23 08/06/23 Rx clonazePAM [KlonoPIN] 0.5 mg PO HS #3 tab 05/14/23 08/06/23 Rx Darbepoetin Peng [Aranesp] 60 mcg SQ MOFR 08/06/23 08/06/23 History Ergocalciferol (Vitamin D2) 1,250 mcg PO FR 08/06/23 08/06/23 History [Drisdol (50,000 Iu)] Furosemide [Lasix] 40 mg PO DAILY 08/06/23 08/06/23 History Gabapentin [Neurontin] 300 mg PO DAILY 08/06/23 08/06/23 History HYDROcodone/APAP 5-325MG [[place] 1 tab PO TID 08/06/23 08/06/23 History 5-325] Potassium Chloride ER [K-Dur 10] 10 meq PO DAILY 08/06/23 08/06/23 History Sertraline [Zoloft] 25 mg PO DAILY 08/06/23 08/06/23 History hydrALAZINE HCL [Apresoline] 25 mg PO BID 08/06/23 08/06/23 History Allergies Allergy/AdvReac Type Severity Reaction Status Date / Time codeine Allergy Unknown Verified 08/06/23 20:56 hydromorphone [From Dilaudid] Allergy Unknown Verified 08/06/23 20:56 acetaminophen AdvReac see comment Verified 08/06/23 20:56 Physical Exam Vitals: Vital Signs Temp Pulse Resp BP Pulse Ox 08/06/23 18:39 97.9 F 77 16 198/86 97 Intake and Output 08/06/23 08/06/23 08/07/23 14:59 22:59 06:59 Other: Weight 83.7 kg Results CBC & Chem 7: 08/06/23 20:10 08/06/23 20:10 Labs: Abnormal Lab Results - Last 24 Hours (Table) 08/06/23 08/06/23 Range/Units 20:10 20:10 WBC 10.7 H (3.8-10.6) k/uL RBC 3.66 L (3.80-5.40) m/uL MCV 100.8 H (80.0-100.0) fL MCHC 30.8 L (31.0-37.0) g/dL RDW 16.8 H (11.5-15.5) % BUN 44 H (7-17) mg/dL Creatinine 2.64 H (0.52-1.04) mg/dL Glucose 144 H (74-99) mg/dL Albumin 3.0 L (3.5-5.0) g/dL
[2023-08-07] MEDS: PIPERACILLIN-TAZOBACTAM 3.375 GM in SODIUM CHLORIDE 0.9% 100 ML IVPB SCH ×2 (03:52→13:24)
[2023-08-07 04:03] LABS: African American GFR (CKD) 18 (>60 ml/min/1.73 sqM); Anion Gap 8 mmol/L; Blood Urea Nitrogen 43 mg/dL (7-17); Calcium 8.7 mg/dL (8.4-10.2); Carbon Dioxide 29 mmol/L (22-30); Chloride 103 mmol/L (98-107); Glucose 140 mg/dL (74-99); Non-African American GFR(CKD) 16 (>60 ml/min/1.73 sqM); Potassium 4.6 mmol/L (3.5-5.1); Sodium 140 mmol/L (137-145)
[2023-08-07] MEDS: HYDROcodone/APAP 5-325MG 1 EACH TAB PO SCH ×3 (08:19→23:04)
[2023-08-07] MEDS: carvediloL 12.5 MG TAB PO SCH ×2 (08:19→17:07)
[2023-08-07] MEDS: allopurinoL 300 MG TAB PO SCH (08:20)
[2023-08-07] MEDS: FUROSEMIDE 40 MG TAB PO SCH (08:21)
[2023-08-07] MEDS: GABAPENTIN 300 MG CAP PO SCH (08:21)
[2023-08-07] MEDS: SODIUM BICARBONATE TAB 650 MG TAB PO SCH ×2 (08:21→23:01)
[2023-08-07] MEDS: SERTRALINE 25 MG TAB PO SCH (08:21)
[2023-08-07] MEDS: POTASSIUM CHLORIDE ER 10 MEQ TAB.ER.PRT PO SCH (08:21)
[2023-08-07] MEDS ORDERED: APIXABAN 2.5 MG TABLET PO SCH (09:00)
[2023-08-07] MEDS ORDERED: hydrALAZINE HCL 25 MG TAB PO SCH (09:00)
--- NOTE | 2023-08-07 11:49 | P.CNOR ---
History of Present Illness - [facility] Consult date: 08/07/23 History of present illness: The patient is very pleasant 78-year-old female with multiple medical problems who is known to me from the office. Briefly the patient had a left total knee replacement done by another surgeon in the remote past. She went on to develop a periprosthetic joint infection that ultimately required several attempts at infection control with a static antibiotic spacer. All of her treatment has been completed by another orthopedic surgeon. At her last follow-up with the orthopedic surgeon that placed the antibiotic spacer the family was told she would likely need an above-knee amputation if her infection recurred. The patient has been staying in a custodial in this area. I initially saw the patient around a year ago and she had no sign of fulminant infection. A follow- up was scheduled the patient never returned. According to the patient's son over the last couple weeks she has developed an open draining sinus over the anterior aspect of her knee. The patient was brought back into my office by the family last week where she was found to have an open draining sinus over the anterior aspect of her knee. According to the patient's son they had been scheduled to see a vascular surgeon in [facility] to try to discuss an above-knee amputation but the patient's son was hoping to expedite treatment due to concern about the patient becoming systemically ill. I recommended presenting to the emergency department here and being admitted to internal medicine with a consultation to vascular surgery as I do not perform above-knee amputations. The patient's family ultimately decided to go forward with this plan and presented to the emergency department yesterday afternoon. Past Medical History Past Medical History: Atrial Fibrillation, Chest Pain / Angina, Dementia, Diabetes Mellitus, GERD/Reflux, Hyperlipidemia, Hypertension, Musculoskeletal Disorder, Neurologic Disorder, Pneumonia, Renal Disease, Seizure Disorder, Vascular Disorder Additional Past Medical History / Comment(s): IDDM type II, paroxysmal atrial fibrilation, parkinsons, epilepsy, muscle weakness, anemia, hyperkalemia, sick sinus syndrome with pacemaker, PVD, CKD stage 3, gastritis, dysphagia, gout History of Any Multi-Drug Resistant Organisms: None Reported Past Surgical History: Pacemaker Past Anesthesia/Blood Transfusion Reactions: No Reported Reaction Type of Cardiac Device: Permanent Pacemaker Device Placement Date:: unknown Past Psychological History: Depression Additional Psychological History / Comment(s): Pt resides at [facility]. She is a jared lift to wheelchair. She is incontinent. She can feed herself if her meal is set up. She understands Nigerien. She speaks with a thick accent. Smoking Status: Never smoker Past Alcohol Use History: None Reported Past Drug Use History: None Reported - Past Family History Father Family Medical History: Unable to Obtain Mother Family Medical History: Unable to Obtain Medications and Allergies Home Medications Medication Instructions Recorded Confirmed Type Atorvastatin [Lipitor] 40 mg PO HS@2100 12/29/21 08/06/23 History Ferrous Sulfate [Iron (65 MG 325 mg PO BID 12/29/21 08/06/23 History Elemental)] Omeprazole 20 mg PO DAILY 12/29/21 08/06/23 History Lactulose [Cephulac] 20 gm PO DAILY PRN ml 01/05/22 08/06/23 Rx Calcium Acetate [PhosLo] 667 mg PO DAILY 01/19/23 08/06/23 History Sodium Chloride [Saline Mist] 1 spray EA NOSTRIL Q2H PRN 01/19/23 08/06/23 History allopurinoL [Zyloprim] 300 mg PO DAILY 01/19/23 08/06/23 History bisacodyL [Dulcolax] 10 mg RECTAL DAILY PRN 01/19/23 08/06/23 History calcitrioL [Calcitriol] 0.25 mcg PO MOTUWETHSA 01/19/23 08/06/23 History carvediloL [Coreg] 25 mg PO BID 01/19/23 08/06/23 History Acetaminophen Tab [Tylenol] 500 mg PO Q6HR PRN tab 01/23/23 08/06/23 Rx Ipratropium-Albuterol Nebulize 3 ml INHALATION RT-BID PRN 05/04/23 08/06/23 History [Duoneb 0.5 mg-3 mg/3 ml Soln] Magnesium Oxide [Mag-Ox] 400 mg PO DAILY 05/04/23 08/06/23 History Ondansetron [Zofran] 4 mg PO Q6H PRN 05/04/23 08/06/23 History Apixaban [Eliquis] 2.5 mg PO BID tab 05/14/23 08/06/23 Rx Sodium Bicarbonate Tab 650 mg PO BID tab 05/14/23 08/06/23 Rx clonazePAM [KlonoPIN] 0.5 mg PO HS #3 tab 05/14/23 08/06/23 Rx Darbepoetin Peng [Aranesp] 60 mcg SQ MOFR 08/06/23 08/06/23 History Ergocalciferol (Vitamin D2) 1,250 mcg PO FR 08/06/23 08/06/23 History [Drisdol (50,000 Iu)] Furosemide [Lasix] 40 mg PO DAILY 08/06/23 08/06/23 History Gabapentin [Neurontin] 300 mg PO DAILY 08/06/23 08/06/23 History HYDROcodone/APAP 5-325MG [[place] 1 tab PO TID 08/06/23 08/06/23 History 5-325] Potassium Chloride ER [K-Dur 10] 10 meq PO DAILY 08/06/23 08/06/23 History Sertraline [Zoloft] 25 mg PO DAILY 08/06/23 08/06/23 History hydrALAZINE HCL [Apresoline] 25 mg PO BID 08/06/23 08/06/23 History Allergies Allergy/AdvReac Type Severity Reaction Status Date / Time codeine Allergy Unknown Verified 08/06/23 20:56 hydromorphone [From Dilaudid] Allergy Unknown Verified 08/06/23 20:56 acetaminophen AdvReac see comment Verified 08/06/23 20:56 Physical Examination The patient is resting on a hospital gurney. She wakes up when prompted but otherwise demented and a poor historian. A focused exam of the left lower extremity was conducted. On inspection there is no incision over the anterior aspect of the knee with an open draining sinus tract. The thigh and calf are soft. Results X-rays from my office show a prior static antibiotic spacer with an intramedullary dalton up the femur and tibia with a large block of cement in the knee joint. There is diffuse osteopenia and calcification in the vasculature a round the knee. 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 I agree with what they have been told by their prior orthopedic surgeon that the patient now has a nonsalvageable infected joint replacement with an open draining sinus and needs an amputation. Given the patient's or medical condition, multiple failed attempts at infection control and an open draining sinus is my recommendation to proceed with an above-knee amputation. I discussed this case with Dr. Akhtar from vascular surgery who agrees. I'm available if needed to help with removal of the antibiotic spacer, but will otherwise defer to Dr. Akhtar for an above-knee amputation. The patient's family is agreeable with this plan and has requested proceeding with an above-knee amputation.
--- NOTE | 2023-08-07 15:41 | P.GSCN ---
History of Present Illness Consult date: 08/07/23 Reason for Consult: Knee infection with possibility of amputation Requesting physician: Reji Saucedo History of present illness: This is a pleasant 78-year-old female with multiple comorbidities including coronary artery disease diabetes mellitus, atrial fibrillation, hyperlipidemia, hypertension, musculoskeletal disorder, seizure disorder, chronic renal disease, Parkinson's disease who has been following with Dr[facility] periprosthetic joint infection. Patient had initially had a left total knee replacement done by another surgeon in the remote past. She then developed. Prosthetic joint infection requiring several attempts of infection control with static antibiotic spacer. Apparently according to orthopedics no the former surgeon that had placed the antibiotic spacer discussed with the family that she would likely need an [id number] amputation of her infection recurred. Apparently patient has been in the [facility] and has developed an open draining wound over the anterior aspect of the D. Vascular surgery was consulted for evaluation for possible need for [id number] amputation. Patient is currently resting comfortably in the emergency department. She has been afebrile since admission. She states that she does have some pain in the knee and left lower extremity. She denies any other complaints at this time. She does speak some Ghanaian but primary language is Romansh. Patient was aware that she was coming in for discussion of possible amputation. WBC 10.7 hemoglobin 11.4 platelet count 234,000 sodium 140 potassium 4.6 BUN 43 creatinine 2.7 glucose 140 Review of Systems A 14 point review systems was completed all pertinent positives and negatives as stated in the HPI. Past Medical History Past Medical History: Atrial Fibrillation, Chest Pain / Angina, Dementia, Diabetes Mellitus, GERD/Reflux, Hyperlipidemia, Hypertension, Musculoskeletal Disorder, Neurologic Disorder, Pneumonia, Renal Disease, Seizure Disorder, Vascular Disorder Additional Past Medical History / Comment(s): IDDM type II, paroxysmal atrial fibrilation, parkinsons, epilepsy, muscle weakness, anemia, hyperkalemia, sick sinus syndrome with pacemaker, PVD, CKD stage 3, gastritis, dysphagia, gout History of Any Multi-Drug Resistant Organisms: None Reported Past Surgical History: Pacemaker Past Anesthesia/Blood Transfusion Reactions: No Reported Reaction Type of Cardiac Device: Permanent Pacemaker Device Placement Date:: unknown Past Psychological History: Depression Additional Psychological History / Comment(s): Pt resides at [facility]. She is a jared lift to wheelchair. She is incontinent. She can feed herself if her meal is set up. She understands Ghanaian. She speaks with a thick accent. Smoking Status: Never smoker Past Alcohol Use History: None Reported Past Drug Use History: None Reported - Past Family History Father Family Medical History: Unable to Obtain Mother Family Medical History: Unable to Obtain Medications and Allergies Home Medications Medication Instructions Recorded Confirmed Type Atorvastatin [Lipitor] 40 mg PO HS@2100 12/29/21 08/06/23 History Ferrous Sulfate [Iron (65 MG 325 mg PO BID 12/29/21 08/06/23 History Elemental)] Omeprazole 20 mg PO DAILY 12/29/21 08/06/23 History Lactulose [Cephulac] 20 gm PO DAILY PRN ml 01/05/22 08/06/23 Rx Calcium Acetate [PhosLo] 667 mg PO DAILY 01/19/23 08/06/23 History Sodium Chloride [Saline Mist] 1 spray EA NOSTRIL Q2H PRN 01/19/23 08/06/23 History allopurinoL [Zyloprim] 300 mg PO DAILY 01/19/23 08/06/23 History bisacodyL [Dulcolax] 10 mg RECTAL DAILY PRN 01/19/23 08/06/23 History calcitrioL [Calcitriol] 0.25 mcg PO MOTUWETHSA 01/19/23 08/06/23 History carvediloL [Coreg] 25 mg PO BID 01/19/23 08/06/23 History Acetaminophen Tab [Tylenol] 500 mg PO Q6HR PRN tab 01/23/23 08/06/23 Rx Ipratropium-Albuterol Nebulize 3 ml INHALATION RT-BID PRN 05/04/23 08/06/23 History [Duoneb 0.5 mg-3 mg/3 ml Soln] Magnesium Oxide [Mag-Ox] 400 mg PO DAILY 05/04/23 08/06/23 History Ondansetron [Zofran] 4 mg PO Q6H PRN 05/04/23 08/06/23 History Apixaban [Eliquis] 2.5 mg PO BID tab 05/14/23 08/06/23 Rx Sodium Bicarbonate Tab 650 mg PO BID tab 05/14/23 08/06/23 Rx clonazePAM [KlonoPIN] 0.5 mg PO HS #3 tab 05/14/23 08/06/23 Rx Darbepoetin Peng [Aranesp] 60 mcg SQ MOFR 08/06/23 08/06/23 History Ergocalciferol (Vitamin D2) 1,250 mcg PO FR 08/06/23 08/06/23 History [Drisdol (50,000 Iu)] Furosemide [Lasix] 40 mg PO DAILY 08/06/23 08/06/23 History Gabapentin [Neurontin] 300 mg PO DAILY 08/06/23 08/06/23 History HYDROcodone/APAP 5-325MG [[place] 1 tab PO TID 08/06/23 08/06/23 History 5-325] Potassium Chloride ER [K-Dur 10] 10 meq PO DAILY 08/06/23 08/06/23 History Sertraline [Zoloft] 25 mg PO DAILY 08/06/23 08/06/23 History hydrALAZINE HCL [Apresoline] 25 mg PO BID 08/06/23 08/06/23 History Allergies Allergy/AdvReac Type Severity Reaction Status Date / Time codeine Allergy Unknown Verified 08/06/23 20:56 hydromorphone [From Dilaudid] Allergy Unknown Verified 08/06/23 20:56 acetaminophen AdvReac see comment Verified 08/06/23 20:56 Surgical - Exam Vital Signs Temp Pulse Resp BP Pulse Ox 97.9 F 77 16 198/86 97 08/06/23 18:39 08/06/23 18:39 08/06/23 18:39 08/06/23 18:39 08/06/23 18:39 General appearance: The patient is alert, oriented, appears in no acute distress. Obese. HET: Head is normocephalic and atraumatic. Pupils are equal and reactive. Neck: Supple. Heart: Regular. Lungs: Equal expansion, normal respiratory effort. Abdomen: Soft, nontender, nondistended. Extremities: Left lower extremity with open wound to anterior aspect of the left knee, no drainage or odor or surrounding erythema noted. Difficult to palpate bilateral lower extremity pulses. Good capillary refill noted. Neurological: Alert and oriented. Results - Labs 08/06/23 20:10 08/07/23 03:23 Abnormal Lab Results - Last 24 Hours (Table) 08/06/23 08/06/23 08/07/23 Range/Units 20:10 20:10 03:23 WBC 10.7 H (3.8-10.6) k/uL RBC 3.66 L (3.80-5.40) m/uL MCV 100.8 H (80.0-100.0) fL MCHC 30.8 L (31.0-37.0) g/dL RDW 16.8 H (11.5-15.5) % BUN 44 H 43 H (7-17) mg/dL Creatinine 2.64 H 2.71 H (0.52-1.04) mg/dL Glucose 144 H 140 H (74-99) mg/dL Albumin 3.0 L (3.5-5.0) g/dL Microbiology - Last 24 Hours (Table) 08/06/23 20:10 Gram Stain - Preliminary Knee - Left Diabetes panel 08/06/23 08/07/23 Range/Units 20:10 03:23 Sodium 139 140 (137-145) mmol/L Potassium 4.6 4.6 (3.5-5.1) mmol/L Chloride 104 103 (98-107) mmol/L Carbon Dioxide 25 29 (22-30) mmol/L BUN 44 H 43 H (7-17) mg/dL Creatinine 2.64 H 2.71 H (0.52-1.04) mg/dL Glucose 144 H 140 H (74-99) mg/dL Calcium 8.5 8.7 (8.4-10.2) mg/dL AST 30 (14-36) U/L ALT 22 (4-34) U/L Alkaline Phosphatase 106 (38-126) U/L Total Protein 6.5 (6.3-8.2) g/dL Albumin 3.0 L (3.5-5.0) g/dL Calcium panel 08/06/23 08/07/23 Range/Units 20:10 03:23 Calcium 8.5 8.7 (8.4-10.2) mg/dL Albumin 3.0 L (3.5-5.0) g/dL Pituitary panel 08/06/23 08/07/23 Range/Units 20:10 03:23 Sodium 139 140 (137-145) mmol/L Potassium 4.6 4.6 (3.5-5.1) mmol/L Chloride 104 103 (98-107) mmol/L Carbon Dioxide 25 29 (22-30) mmol/L BUN 44 H 43 H (7-17) mg/dL Creatinine 2.64 H 2.71 H (0.52-1.04) mg/dL Glucose 144 H 140 H (74-99) mg/dL Calcium 8.5 8.7 (8.4-10.2) mg/dL Adrenal panel 08/06/23 08/07/23 Range/Units 20:10 03:23 Sodium 139 140 (137-145) mmol/L Potassium 4.6 4.6 (3.5-5.1) mmol/L Chloride 104 103 (98-107) mmol/L Carbon Dioxide 25 29 (22-30) mmol/L BUN 44 H 43 H (7-17) mg/dL Creatinine 2.64 H 2.71 H (0.52-1.04) mg/dL Glucose 144 H 140 H (74-99) mg/dL Calcium 8.5 8.7 (8.4-10.2) mg/dL Total Bilirubin 0.7 (0.2-1.3) mg/dL AST 30 (14-36) U/L ALT 22 (4-34) U/L Alkaline Phosphatase 106 (38-126) U/L Total Protein 6.5 (6.3-8.2) g/dL Albumin 3.0 L (3.5-5.0) g/dL Assessment and Plan Assessment: 1. Chronic recurrent left knee periprosthetic infection 2. Left knee open wound 3. Coronary artery disease 4. History of atrial fibrillation on Eliquis 5. Diabetes mellitus 6. Epilepsy 7. Parkinson's disorder 8. Hypertension and hyperlipidemia 9. Chronic kidney disease Plan: 1. Arterial ultrasound ordered 2. Left hip x-ray ordered 3. Hold Eliquis 4. Antibiotics per recommendations from infectious disease 5. Possible left [id number] amputation for recurrent infected periprosthetic knee, tentatively scheduled for 6. Further recommendations forthcoming from vascular surgeon Thank you for this consultation, we will continue to follow. The impression and plan of care has been dictated as directed. I performed a history and examination of this patient, discussed the same with the dictator. I agree with the dictator's note ,documented as a scribe. Any additional findings or plans will be noted.
[2023-08-07] MEDS ORDERED: IPRATROPIUM-ALBUTEROL 3 ML NEB INHALATION PRN (15:42)
[2023-08-07] MEDS ORDERED: DEXTROSE 50% SYRINGE 50 ML IVP PRN ×2 (15:44)
--- NOTE | 2023-08-07 15:47 | P.PN ---
Subjective Progress Note Date: 08/07/23 (rick charting seen at 1015) Patient is an 78-year-old female with diabetes mellitus type 2, paroxysmal atrial fibrillation, Parkinson's, seizure disorder, sick sinus syndrome status post pacemaker, and chronic kidney disease stage III as well as other comorbid conditions who presented to the ER at the direction of Dr. Jones. On arrival to the ER she was hypertensive with a blood pressure of 198/86. Laboratory analysis was remarkable for white blood cell count 10.7, BUN 44, creatinine 2.64. She is admitted for acute on chronic knee infection. She was started on vancomycin and Zosyn. Her discussion with Dr. Jones the following history was obtained. Patient has a remote history of a left total knee replacement done an outside hospital. She ultimately developed a periprosthetic joint infection which required several attempts at infection control with placement of a static antibiotic spacer. After her last surgery she was informed by family that she would likely need an above knee amputation for infection recurred. Recently the patient developed a draining sinus over the anterior aspect of the knee will stay on her mcfp when she therefore was referred to Dr. Jones. He recommended admitting the patient for possible AKA prior to her becoming sys temically ill from the underlying infection. Patient seen and examined at bedside with use of an Faroese detective sergeant. She denies any pain. She is unsure how long she has had the wound in her left leg. She denies any chest pain, shortness breath, nausea, vomiting, or diarrhea. Vital signs reviewed General: nontoxic, no distress, appears at stated age Cardiovascular: S1S2 reg, no murmur, positive posterior tibial pulse bilateral, Lungs: Decreased bs bilateral, no rhonchi, no rales , no accessory muscle use Abdominal: soft, nontender to palpation, no guarding, no appreciable organomegaly Ext: no gross muscle atrophy, no edema b/l lower extremities, no contractures Neuro: CN II-XI grossly intact, no focal neuro deficits Urine: Quarter-sized open area on the left knee with purulent drainage, no surrounding warmth or erythema. 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 Jones. Plan is for AKA with vascular surgery. Currently awaiting formal vascular surgery consultation. -Await formal infectious disease consultation -Zosyn 3.375 g IV piggyback every 12 hours. Daptomycin 400 mg IVPB every 48 hours. - Await knee culture - Await blood culture Chronic kidney disease stage III Paroxysmal atrial fibrillation, history of sick sinus syndrome status post permanent pacemaker Parkinson's disease Hypertension Dyslipidemia -Lipitor on hold due to use of daptomycin, Eliquis on hold for possible surgery -Continue with Coreg 25 mg by mouth twice daily, Lasix 40 mg daily, hydralazine 50 mg 3 times daily -Sodium bicarb 650 milligrams twice daily -Follow blood pressures Diabetes mellitus type 2 -Not on any oral medications -Sliding-scale insulin -Follow blood sugars -Check A1c Chronic: Anemia Muscle weakness Dysphasia Gout Gastritis Imaging: None new Data Review: Labs reviewed from today are remarkable for creatinine 2.71 DVT prophylaxis: Heparin in AM while eliquis on hold Anticipated discharge date: pending clinical course Anticipated discharge place: pending clinical course This dictation was prepared using [employer] voice recognition software. Though every attempt is made to correct errors during dictation some may still exist. Objective - Vital Signs Vital signs: Vital Signs Temp 97.6 F 08/07/23 13:25 Pulse 67 08/07/23 13:25 Resp 16 08/07/23 13:25 BP 159/65 08/07/23 13:25 Pulse Ox 98 08/07/23 13:25 FiO2 Intake & Output 08/06/23 08/07/23 08/07/23 18:59 06:59 18:59 Weight 83.7 kg 83.7 kg - Labs CBC & Chem 7: 08/06/23 20:10 08/07/23 03:23 Labs: Abnormal Lab Results - Last 24 Hours (Table) 08/06/23 08/06/23 08/07/23 Range/Units 20:10 20:10 03:23 WBC 10.7 H (3.8-10.6) k/uL RBC 3.66 L (3.80-5.40) m/uL MCV 100.8 H (80.0-100.0) fL MCHC 30.8 L (31.0-37.0) g/dL RDW 16.8 H (11.5-15.5) % BUN 44 H 43 H (7-17) mg/dL Creatinine 2.64 H 2.71 H (0.52-1.04) mg/dL Glucose 144 H 140 H (74-99) mg/dL Albumin 3.0 L (3.5-5.0) g/dL Microbiology - Last 24 Hours (Table) 08/06/23 20:10 Gram Stain - Preliminary Knee - Left
[2023-08-07] MEDS ORDERED: VANCOMYCIN 1,500 MG in SODIUM CHLORIDE 0.9% 500 ML 500 ML IVPB ONE ×2 (16:00→22:00)
[2023-08-07 16:59] LABS: Glucose,Whole Blood 152 mg/dL (70-110)
[2023-08-07] MEDS: hydrALAZINE HCL 50 MG TAB PO SCH ×2 (17:07→23:01)
[2023-08-07] MEDS: INSULIN ASPART (NovoLOG) 100 UNIT/ML VIAL SQ SCH ×2 (17:07→22:55)
--- NOTE | 2023-08-07 18:59 | XR ---
EXAMINATION TYPE: XR Hip Complete LT DATE OF EXAM: 08/07/2023 COMPARISON: NONE HISTORY: 78 year-old female history of left knee replacement, requiring above the knee amputation due to nonhealing wound infection at the knee TECHNIQUE: 2 views FINDINGS: There is severe osteopenia limiting the evaluation. No obvious displaced fracture is seen. There are extensive arterial calcifications throughout the visualized pelvis, hip, and left thigh. IMPRESSION: Severe diffuse arterial calcifications. Severe osteopenia limiting the evaluation. No obvious displac ed fracture is seen.
[2023-08-07] MEDS ORDERED: ATORVASTATIN 40 MG TAB PO SCH (21:00)
[2023-08-07 22:20] LABS: Glucose,Whole Blood 134 mg/dL (70-110)
[2023-08-07] MEDS: FERROUS SULFATE 325 MG TAB PO SCH (23:02)
[2023-08-07] MEDS: clonazePAM 0.5 MG TAB PO SCH (23:03)
[2023-08-08] MEDS: PIPERACILLIN-TAZOBACTAM 3.375 GM in SODIUM CHLORIDE 0.9% 100 ML IVPB SCH ×2 (01:55→14:35)
[2023-08-08 06:04] LABS: Glucose,Whole Blood 115 mg/dL (70-110)
[2023-08-08] MEDS: INSULIN ASPART (NovoLOG) 100 UNIT/ML VIAL SQ SCH ×4 (06:33→22:03)
[2023-08-08] MEDS: carvediloL 12.5 MG TAB PO SCH ×2 (06:47→10:29)
--- NOTE | 2023-08-08 09:03 | P.CONS ---
History of Present Illness - Reason for Consult Consult date: 08/07/23 Knee infection Requesting physician: Reji Saucedo - Chief Complaint Nonhealing wound to the left knee x weeks - History of Present Illness Patient is a 78-year-old female with a past medical history pertinent for atrial fibrillation diabetes mellitus hypertension hyperlipidemia dementia patient did have a history of 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 knee that has been treated by her orthopedic surgeon with a static antibiotic spacer however the patient did have a development of a draining sinus from the left knee for the patient has been advised about the knee amputation, patient has been advised to go to the hospital to be started on IV biotics and will likely need amputation for the patient presented to hospital on arrival to the ER patient was afebrile and no fever Recorded subsequently patient was not tachycardic hypotensive or hypoxic patient did have vital of 10.7 creatinine is 2.64 patient did have a cultures which are currently pending patient was started on vancomycin and Zosyn infectious disease was consulted for further management of antibiotic therapy, most information has been obtained from review the chart as the patient herself evaluated good historian and no family member available at the bedside nursing staff did not report any acute changes since being in the hospital Review of Systems Positive points has been mentioned in HPI complete review could not be obtained because of his underlying mental status Past Medical History Past Medical History: Atrial Fibrillation, Chest Pain / Angina, Dementia, Diabetes Mellitus, GERD/Reflux, Hyperlipidemia, Hypertension, Musculoskeletal Disorder, Neurologic Disorder, Pneumonia, Renal Disease, Seizure Disorder, Vascular Disorder Additional Past Medical History / Comment(s): IDDM type II, paroxysmal atrial fibrilation, parkinsons, epilepsy, muscle weakness, anemia, hyperkalemia, sick sinus syndrome with pacemaker, PVD, CKD stage 3, gastritis, dysphagia, gout History of Any Multi-Drug Resistant Organisms: None Reported Past Surgical History: Pacemaker Past Anesthesia/Blood Transfusion Reactions: No Reported Reaction Type of Cardiac Device: Permanent Pacemaker Device Placement Date:: unknown Past Psychological History: Depression Additional Psychological History / Comment(s): Pt resides at [facility]. She is a jared lift to wheelchair. She is incontinent. She can feed herself if her meal is set up. She understands Chinese. She speaks with a thick accent. Smoking Status: Never smoker Past Alcohol Use History: None Reported Past Drug Use History: None Reported - Past Family History Father Family Medical History: Unable to Obtain Mother Family Medical History: Unable to Obtain Medications and Allergies Home Medications Medication Instructions Recorded Confirmed Type Atorvastatin [Lipitor] 40 mg PO HS@2100 12/29/21 08/06/23 History Ferrous Sulfate [Iron (65 MG 325 mg PO BID 12/29/21 08/06/23 History Elemental)] Omeprazole 20 mg PO DAILY 12/29/21 08/06/23 History Lactulose [Cephulac] 20 gm PO DAILY PRN ml 01/05/22 08/06/23 Rx Calcium Acetate [PhosLo] 667 mg PO DAILY 01/19/23 08/06/23 History Sodium Chloride [Saline Mist] 1 spray EA NOSTRIL Q2H PRN 01/19/23 08/06/23 History allopurinoL [Zyloprim] 300 mg PO DAILY 01/19/23 08/06/23 History bisacodyL [Dulcolax] 10 mg RECTAL DAILY PRN 01/19/23 08/06/23 History calcitrioL [Calcitriol] 0.25 mcg PO MOTUWETHSA 01/19/23 08/06/23 History carvediloL [Coreg] 25 mg PO BID 01/19/23 08/06/23 History Acetaminophen Tab [Tylenol] 500 mg PO Q6HR PRN tab 01/23/23 08/06/23 Rx Ipratropium-Albuterol Nebulize 3 ml INHALATION RT-BID PRN 05/04/23 08/06/23 History [Duoneb 0.5 mg-3 mg/3 ml Soln] Magnesium Oxide [Mag-Ox] 400 mg PO DAILY 05/04/23 08/06/23 History Ondansetron [Zofran] 4 mg PO Q6H PRN 05/04/23 08/06/23 History Apixaban [Eliquis] 2.5 mg PO BID tab 05/14/23 08/06/23 Rx Sodium Bicarbonate Tab 650 mg PO BID tab 05/14/23 08/06/23 Rx clonazePAM [KlonoPIN] 0.5 mg PO HS #3 tab 05/14/23 08/06/23 Rx Darbepoetin Peng [Aranesp] 60 mcg SQ MOFR 08/06/23 08/06/23 History Ergocalciferol (Vitamin D2) 1,250 mcg PO FR 08/06/23 08/06/23 History [Drisdol (50,000 Iu)] Furosemide [Lasix] 40 mg PO DAILY 08/06/23 08/06/23 History Gabapentin [Neurontin] 300 mg PO DAILY 08/06/23 08/06/23 History HYDROcodone/APAP 5-325MG [[place] 1 tab PO TID 08/06/23 08/06/23 History 5-325] Potassium Chloride ER [K-Dur 10] 10 meq PO DAILY 08/06/23 08/06/23 History Sertraline [Zoloft] 25 mg PO DAILY 08/06/23 08/06/23 History hydrALAZINE HCL [Apresoline] 25 mg PO BID 08/06/23 08/06/23 History Allergies Allergy/AdvReac Type Severity Reaction Status Date / Time codeine Allergy Unknown Verified 08/06/23 20:56 hydromorphone [From Dilaudid] Allergy Unknown Verified 08/06/23 20:56 acetaminophen AdvReac see comment Verified 08/06/23 20:56 Physical Exam Vitals: Vital Signs Temp Pulse Resp BP Pulse Ox 08/07/23 08:00 97.1 F L 74 16 173/78 96 08/07/23 06:35 98.9 F 77 18 185/80 98 08/07/23 01:57 98.6 F 08/07/23 00:35 98.6 F 72 18 178/88 99 08/06/23 18:39 97.9 F 77 16 198/86 97 Intake and Output 08/06/23 08/07/23 08/07/23 22:59 06:59 14:59 Other: Weight 83.7 kg 83.7 kg GENERAL DESCRIPTION: Elderly female lying in bed, no distress. No tachypnea or accessory muscle of respiration use. HEENT: Shows Pallor , no scleral icterus. Oral mucous membrane is dry. No pharyngeal erythema or thrush NECK: Trachea central, no thyromegaly. LUNGS: Unlabored breathing. Clear to auscultation anteriorly. No wheeze or c rackle. HEART: S1, S2, regular rate and rhythm. No loud murmur ABDOMEN: Soft, no tenderness , guarding or rigidity, no organomegaly EXTREMITIES: Left knee with the wound minimal slough some surrounding swelling no foul-smelling drainage was noticed SKIN: No rash, no masses palpable. NEUROLOGICAL: The patient is awake, alert, , mood and affect normal. Results CBC & Chem 7: 08/06/23 20:10 12 03:23 Labs: Abnormal Lab Results - Last 24 Hours (Table) 08/06/23 08/06/23 08/07/23 Range/Units 20:10 20:10 03:23 WBC 10.7 H (3.8-10.6) k/uL RBC 3.66 L (3.80-5.40) m/uL MCV 100.8 H (80.0-100.0) fL MCHC 30.8 L (31.0-37.0) g/dL RDW 16.8 H (11.5-15.5) % BUN 44 H 43 H (7-17) mg/dL Creatinine 2.64 H 2.71 H (0.52-1.04) mg/dL Glucose 144 H 140 H (74-99) mg/dL Albumin 3.0 L (3.5-5.0) g/dL Assessment and Plan (1) Infection of knee Current Visit: Yes Status: Acute Code(s): M00.9 - PYOGENIC ARTHRITIS, UNSPECIFIED SNOMED Code(s): 021542869 (2) Leukocytosis Current Visit: No Status: Acute Code(s): D72.829 - ELEVATED WHITE BLOOD CELL COUNT, UNSPECIFIED SNOMED Code(s): 925205033 Plan: 1patient with a history of 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 knee and apparently did have multiple surgeries and has been treated with multiple courses of antibiotic now with a 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 and per determination by tabetic surgery patient will need left above-knee amputation in order to cure of this infection and apparently the patient and family seem to be agreeable to that for which vascular surgery has been consulted 2-blood and local cultures obtained and results will be followed 3-patient did have a renal insufficiency high risk of nephrotoxicity 4-we will continue Zosyn however discontinue vancomycin to decrease risk of nephrotoxicity and add daptomycin for gram-positive coverage We will follow on clinical condition and cultures to further adjust medication if needed Thank you for this consultation we will follow the patient along with you Dictation was produced using [employer] software. please excuse any grammatical, word or spelling errors. Time with Patient: Greater than 30
[2023-08-08] MEDS: FERROUS SULFATE 325 MG TAB PO SCH ×2 (10:29→22:03)
[2023-08-08] MEDS: GABAPENTIN 300 MG CAP PO SCH (10:29)
[2023-08-08] MEDS: POTASSIUM CHLORIDE ER 10 MEQ TAB.ER.PRT PO SCH (10:29)
[2023-08-08] MEDS: hydrALAZINE HCL 50 MG TAB PO SCH ×3 (10:29→22:02)
[2023-08-08] MEDS: MAGNESIUM OXIDE 400 MG TAB PO SCH (10:29)
[2023-08-08] MEDS: FUROSEMIDE 40 MG TAB PO SCH (10:29)
[2023-08-08] MEDS: PANTOPRAZOLE 40 MG TABLET PO SCH (10:29)
[2023-08-08] MEDS: HYDROcodone/APAP 5-325MG 1 EACH TAB PO SCH ×3 (10:30→22:03)
[2023-08-08] MEDS: allopurinoL 300 MG TAB PO SCH (10:30)
--- NOTE | 2023-08-08 11:16 | CA ---
Transthoracic Echo Report Name: Maurice Hilton Age: 78 Gender: F : 1945 Exam Date: 08/07/2023 14:59 Exam Location: [facility] Ht (in): 62 Wt (lb): 184 Ordering Physician: Sowmya Robledo Attending/Referring Phys: [id number], Venkat Precipitator Operator Sahara Phan RDCS Procedure CPT: Indications: LV function Cardiac Hx: Technical Quality: Fair Contrast 1: Total Dose (mL): Contrast 2: Total Dose (mL): MEASUREMENTS (Male / Female) Normal Values 2D ECHO LV Diastolic Diameter PLAX 4.3 cm 4.2 - 5.9 / 3.9 - 5.3 cm LV Systolic Diameter PLAX 2.6 cm IVS Diastolic Thickness 1.4 cm 0.6 - 1.0 / 0.6 - 0.9 cm LVPW Diastolic Thickness 1.4 cm 0.6 - 1.0 / 0.6 - 0.9 cm LV Relative Wall Thickness 0.6 RV Internal Dim ED PLAX 3.7 cm LA Volume 54.6 cm??? 18 - 58 / 22 - 52 cm??? LA Volume Index 28.0 cm???/m??? 16 - 28 cm???/m??? M-MODE Aortic Root Diameter MM 1.9 cm LA Systolic Diameter MM 4.2 cm LA Ao Ratio MM 2.2 AV Cusp Separation MM 1.2 cm DOPPLER AV Peak Velocity 152.1 cm/s AV Peak Gradient 9.3 mmHg AV Mean Velocity 104.2 cm/s AV Mean Gradient 4.9 mmHg AV Velocity Time Integral 36.5 cm LVOT Peak Velocity 86.6 cm/s LVOT Peak Gradient 3.0 mmHg LVOT Velocity Time Integral 20.8 cm MV Area PHT 3.1 cm??? Mitral E Point Velocity 88.8 cm/s Mitral A Point Velocity 133.3 cm/s Mitral E to A Ratio 0.7 MV Deceleration Time 240.9 ms MV E' Velocity 6.3 cm/s Mitral E to MV E' Ratio 14.2 TR Peak Velocity 295.5 cm/s TR Peak Gradient 34.9 mmHg Right Ventricular Systolic Press 39.0 mmHg FINDINGS Left Ventricle Moderately increased left ventricular wall thickness. Left ventricular cavity size normal. Normal left ventricular systolic function with no obvious regional wall motion abnormalities. Left ventricular ejection fraction is estimated at 55-60 %. Right Ventricle Mild right ventricular dilatation. Mild pulmonary hypertension. Right Atrium Normal right atrial size. Catheter/pacemaker wire in the right atrial cavity. Left Atrium Mildly increased left atrial volume. Mitral Valve Structurally normal mitral valve. Mitral valve thickened. Moderate mitral annular calcification. Mild mitral regurgitation. Aortic Valve No aortic valve stenosis or regurgitation. Tricuspid Valve Structurally normal tricuspid valve. Fuyq-sd-[id number] tricuspid regurgitation. Pulmonic Valve Trace pulmonic regurgitation. Pericardium No pericardial effusion. Aorta Normal size aortic root and proximal ascending aorta. CONCLUSIONS Technically very difficult study for interpretation Or acoustic windows Normal LV systolic function Severe mitral annular calcifications with mild mitral insufficiency Aortic sclerosis Previewed by: Dr. Chad Acevedo MD (Electronically Signed) Final Date: 08 August 2023 11:15
[2023-08-08 11:31] LABS: Glucose,Whole Blood 123 mg/dL (70-110)
--- NOTE | 2023-08-08 11:34 | P.PN ---
Subjective Progress Note Date: 08/08/23 Principal diagnosis: Recurrent infection left knee, wound Patient was seen and examined today sitting up in her bed. Patient is able to speak and understand some Malian. She does state that her knee does hurt. She also states that she does not want an amputation. At this time bedside activity therapy specialist not available. Discussed with patient that we would come back to further discuss patient's knee, concern for infection, and possible amputation which is tentatively scheduled for tomorrow. Patient agreeable. Objective - Vital Signs Vital signs: Vital Signs Temp 98.3 F 08/08/23 08:00 Pulse 82 08/08/23 08:00 Resp 17 08/08/23 08:00 BP 155/70 08/08/23 08:00 Pulse Ox 99 08/08/23 08:00 FiO2 Intake & Output 08/07/23 08/08/23 08/08/23 18:59 06:59 18:59 Output Total 1 Balance -1 Weight 83.7 kg Output: Urine 1 Other: Voiding Method Diaper Diaper # Voids 2 - Exam General appearance: The patient is alert, oriented, appears in no acute distress. Obese. HET: Head is normocephalic and atraumatic. Pupils are equal and reactive. Neck: Supple. Heart: Regular. Lungs: Equal expansion, normal respiratory effort. Abdomen: Soft, nontender, nondistended. Extremities: Left lower extremity with open wound to anterior aspect of the left knee, no drainage or odor or surrounding erythema noted. Difficult to palpate bilateral lower extremity pulses. Good capillary refill noted. Neurological: Alert and oriented. - Labs CBC & Chem 7: 08/08/23 12:37 08/08/23 12:37 Labs: Abnormal Lab Results - Last 24 Hours (Table) 08/07/23 08/07/23 08/08/23 Range/Units 16:58 22:17 06:03 POC Glucose (mg/dL) 152 H 134 H 115 H (70-110) mg/dL Microbiology - Last 24 Hours (Table) 08/06/23 20:10 Gram Stain - Preliminary Knee - Left Wound Culture - Preliminary Gram Neg Bacilli Assessment and Plan Assessment: 1. Chronic recurrent left knee periprosthetic infection 2. Left knee open wound 3. Coronary artery disease 4. History of atrial fibrillation on Eliquis 5. Diabetes mellitus 6. Epilepsy 7. Parkinson's disorder 8. Hypertension and hyperlipidemia 9. Chronic kidney disease Plan: 1. Arterial ultrasound ordered 2. Left hip x-ray ordered 3. Hold Eliquis 4. Antibiotics per recommendations from infectious disease 5. Possible left [id number] amputation for recurrent infected periprosthetic knee, tentatively scheduled for 6. Please get tele-activity therapy specialist to the bedside. Further discussion to be had with patient using activity therapy specialist before moving forward with any planned surgery. 7. Further recommendations forthcoming from vascular surgeon Patient was reevaluated with Dr. Akhtar with [place] activity therapy specialist via telephone video. Patient is alert and oriented to self, year (23), and states that she was at home, then stated she was in [place]. Able to say that her left knee is hurting her. It was discussed with her the recommendation is to move forward with a left [id number] amputation due to the infection in her left knee. When asked if her son makes medical decisions for her she said that he helps make decisions he is helping me but depends on my approval if I see no that we do not do it .patient states she will can talk to her son and she will consider it. Further discussion will be had with patient's son before decision made moving forward for amputation. Thank you for this consultation, we will continue to follow. The impression and plan of care has been dictated as directed. I performed a history and examination of this patient, discussed the same with the dictator. I agree with the dictator's note ,documented as a scribe. Any additional findings or plans will be noted. Long discussion had with his son over the phone, he states that his mom has dementia, he states that he is the POA and decision maker.. Patient does not seem to understand the significance of her wound and infection. She is not fully oriented due to her dementia and Alzheimer's. Given the continued infection impact the patient is nonambulatory, I believe it is reasonable to go forward with an amputation above the knee. Risks and benefits were discussed with the son over the phone who seemingly understands and wishes for the proc edure to proceed.
--- NOTE | 2023-08-08 11:57 | P.CRDCN ---
History of Present Illness History of present illness: HISTORY OF PRESENT ILLNESS: This is a 78-year-old female with a past medical history significant for hypertension, hyperlipidemia, diabetes, paroxysmal atrial fibrillation, and sick sinus syndrome with dual-chamber pacemaker implantation in 2013. Patient follows in the office with Dr. Vitale. We have been asked to see the patient in consultation for cardiac clearance for left AKA. Patient examined at the bedside. Patient currently denies chest pain or pressure. She denies shortness of breath. Vital signs are stable. She is tentatively scheduled for left AKA tomorrow with vascular surgery. * Laboratory data: WBC 10.7. Hemoglobin 11.4. Platelet count 234. BUN 43. Creatinine 2.71. * Current home cardiac medications include carvedilol 25 mg twice a day, Eliquis 2.5 mg twice a day, Lipitor 40 mg at night, Lasix 40 mg daily, hydralazine 25 mg twice a day * Most recent echocardiogram obtained in January 2023 revealed ejection fraction 55- 60%, mild pulmonary hypertension, trace to mild mitral regurgitation and mild tricuspid regurgitation * Repeat echocardiogram this admission performed reveals ejection fraction 55- 60%, mild pulmonary hypertension, mild mitral regurgitation, [id number] tricuspid regurgitation * Cardiac catheterization history: Unknown REVIEW OF SYSTEMS: At the time of my exam: CONSTITUTIONAL: Denies fever or chills. HEENT: Denies blurred vision, vision changes, or eye pain. Denies hemoptysis CARDIOVASCULAR: Denies chest pain. Denies orthopnea. Denies PND. Denies palpitations RESPIRATORY: Denies shortness of breath. GASTROINTESTINAL: Denies abdominal pain. Denies nausea or vomiting. HEMATOLOGIC: Denies bleeding disorders. GENITOURINARY: Denies any blood in urine. SKIN: Denies pruitis. Denies rash. PHYSICAL EXAM: VITAL SIGNS: Reviewed. GENERAL: Well-developed in no acute distress. HEENT: Head is normocephalic. Pupils are equal, round. Sclerae anicteric. Mucous membranes of the mouth are moist. Neck supple. No JVD or thyromegaly LUNGS: Respirations even and unlabored. Lungs essentially clear to auscultation bilaterally. HEART: Regular rate and rhythm. S1 and S2 heard. ABDOMEN: Soft. Nondistended. Nontender. EXTREMITIES: Normal range of motion. No clubbing or cyanosis. Wound noted to left lower extremity. NEUROLOGIC: Awake and alert. Oriented x 3. ASSESSMENT: Chronic recurrent left knee periprosthetic infection, scheduled for AKA Paroxysmal atrial fibrillation Hypertension Hyperlipidemia Sick sinus syndrome with dual chamber pacemaker implantation in 2013, [facility] Chronic kidney disease Dementia PLAN: Obtain EKG Eliquis has been placed on hold in anticipation for left AKA Continue additional home cardiac medications Increase hydralazine to 75 mg mg 3 times a day for optimal blood pressure cont rol Continue to monitor blood pressure There are no absolute contraindications for patient to proceed with left AKA from a cardiac standpoint Further recommendations pending patient's course Nurse practitioner note has been reviewed by physician. Signing provider agrees with the documented findings, assessment, and plan of care. Past Medical History Past Medical History: Atrial Fibrillation, Chest Pain / Angina, Dementia, Diabetes Mellitus, GERD/Reflux, Hyperlipidemia, Hypertension, Musculoskeletal Disorder, Neurologic Disorder, Pneumonia, Renal Disease, Seizure Disorder, Vascular Disorder Additional Past Medical History / Comment(s): IDDM type II, paroxysmal atrial fibrilation, parkinsons, epilepsy, muscle weakness, anemia, hyperkalemia, sick sinus syndrome with pacemaker, PVD, CKD stage 3, gastritis, dysphagia, gout History of Any Multi-Drug Resistant Organisms: None Reported Past Surgical History: Pacemaker Past Anesthesia/Blood Transfusion Reactions: No Reported Reaction Type of Cardiac Device: Permanent Pacemaker Device Placement Date:: unknown Past Psychological History: Depression Additional Psychological History / Comment(s): Pt resides at [facility]. She is a jared lift to wheelchair. She is incontinent. She can feed herself if her meal is set up. She understands Panamanian. She speaks with a thick accent. Smoking Status: Never smoker Past Alcohol Use History: None Reported Past Drug Use History: None Reported - Past Family History Father Family Medical History: Unable to Obtain Mother Family Medical History: Unable to Obtain Medications and Allergies Home Medications Medication Instructions Recorded Confirmed Type Atorvastatin [Lipitor] 40 mg PO HS@2100 12/29/21 08/06/23 History Ferrous Sulfate [Iron (65 MG 325 mg PO BID 12/29/21 08/06/23 History Elemental)] Omeprazole 20 mg PO DAILY 12/29/21 08/06/23 History Lactulose [Cephulac] 20 gm PO DAILY PRN ml 01/05/22 08/06/23 Rx Calcium Acetate [PhosLo] 667 mg PO DAILY 01/19/23 08/06/23 History Sodium Chloride [Saline Mist] 1 spray EA NOSTRIL Q2H PRN 01/19/23 08/06/23 History allopurinoL [Zyloprim] 300 mg PO DAILY 01/19/23 08/06/23 History bisacodyL [Dulcolax] 10 mg RECTAL DAILY PRN 01/19/23 08/06/23 History calcitrioL [Calcitriol] 0.25 mcg PO MOTUWETHSA 01/19/23 08/06/23 History carvediloL [Coreg] 25 mg PO BID 01/19/23 08/06/23 History Acetaminophen Tab [Tylenol] 500 mg PO Q6HR PRN tab 01/23/23 08/06/23 Rx Ipratropium-Albuterol Nebulize 3 ml INHALATION RT-BID PRN 05/04/23 08/06/23 History [Duoneb 0.5 mg-3 mg/3 ml Soln] Magnesium Oxide [Mag-Ox] 400 mg PO DAILY 05/04/23 08/06/23 History Ondansetron [Zofran] 4 mg PO Q6H PRN 05/04/23 08/06/23 History Apixaban [Eliquis] 2.5 mg PO BID tab 05/14/23 08/06/23 Rx Sodium Bicarbonate Tab 650 mg PO BID tab 05/14/23 08/06/23 Rx clonazePAM [KlonoPIN] 0.5 mg PO HS #3 tab 05/14/23 08/06/23 Rx Darbepoetin Peng [Aranesp] 60 mcg SQ MOFR 08/06/23 08/06/23 History Ergocalciferol (Vitamin D2) 1,250 mcg PO FR 08/06/23 08/06/23 History [Drisdol (50,000 Iu)] Furosemide [Lasix] 40 mg PO DAILY 08/06/23 08/06/23 History Gabapentin [Neurontin] 300 mg PO DAILY 08/06/23 08/06/23 History HYDROcodone/APAP 5-325MG [Talent 1 tab PO TID 08/06/23 08/06/23 History 5-325] Potassium Chloride ER [K-Dur 10] 10 meq PO DAILY 08/06/23 08/06/23 History Sertraline [Zoloft] 25 mg PO DAILY 08/06/23 08/06/23 History hydrALAZINE HCL [Apresoline] 25 mg PO BID 08/06/23 08/06/23 History Allergies Allergy/AdvReac Type Severity Reaction Status Date / Time codeine Allergy Unknown Verified 08/06/23 20:56 hydromorphone [From Dilaudid] Allergy Unknown Verified 08/06/23 20:56 acetaminophen AdvReac see comment Verified 08/06/23 20:56 Physical Exam Vitals: Vital Signs Temp Pulse Resp BP Pulse Ox 08/07/23 08:00 97.1 F L 74 16 173/78 96 08/07/23 06:35 98.9 F 77 18 185/80 98 08/07/23 01:57 98.6 F 08/07/23 00:35 98.6 F 72 18 178/88 99 08/06/23 18:39 97.9 F 77 16 198/86 97 Intake and Output 08/06/23 08/07/23 08/07/23 22:59 06:59 14:59 Other: Weight 83.7 kg 83.7 kg Results 08/06/23 20:10 08/07/23 03:23 Cardiac Enzymes 08/06/23 Range/Units 20:10 AST 30 (14-36) U/L CBC 08/06/23 Range/Units 20:10 WBC 10.7 H (3.8-10.6) k/uL RBC 3.66 L (3.80-5.40) m/uL Hgb 11.4 (11.4-16.0) gm/dL Hct 36.9 (34.0-46.0) % Plt Count 234 (150-450) k/uL Comprehensive Metabolic Panel 08/06/23 08/07/23 Range/Units 20:10 03:23 Sodium 139 140 (137-145) mmol/L Potassium 4.6 4.6 (3.5-5.1) mmol/L Chloride 104 103 (98-107) mmol/L Carbon Dioxide 25 29 (22-30) mmol/L BUN 44 H 43 H (7-17) mg/dL Creatinine 2.64 H 2.71 H (0.52-1.04) mg/dL Glucose 144 H 140 H (74-99) mg/dL Calcium 8.5 8.7 (8.4-10.2) mg/dL AST 30 (14-36) U/L ALT 22 (4-34) U/L Alkaline Phosphatase 106 (38-126) U/L Total Protein 6.5 (6.3-8.2) g/dL Albumin 3.0 L (3.5-5.0) g/dL Current Medications Generic Name Dose Route Start Last Admin Trade Name Freq PRN Reason Stop Dose Admin Hydrocodone Bitart/Acetaminophen 1 each 08/07/23 09:00 08/07/23 08:19 Hydrocodone/Apap 5-325mg 1 Each Tab PO 1 each TID HONG Administration Allopurinol 300 mg 08/07/23 09:00 08/07/23 08:20 Allopurinol 300 Mg Tab PO 300 mg DAILY HONG Administration Atorvastatin Calcium 40 mg 08/07/23 21:00 Atorvastatin 40 Mg Tab PO HS@2100 HONG Carvedilol 25 mg 08/07/23 07:30 08/07/23 08:19 Carvedilol 12.5 Mg Tab PO 25 mg BID-W/MEALS HONG Administration Clonazepam 0.5 mg 08/07/23 21:00 Clonazepam 0.5 Mg Tab PO HS HONG Furosemide 40 mg 08/07/23 09:00 08/07/23 08:21 Furosemide 40 Mg Tab PO 40 mg DAILY HONG Administration Gabapentin 300 mg 08/07/23 09:00 08/07/23 08:21 Gabapentin 300 Mg Cap PO 300 mg DAILY HONG Administration Hydralazine HCl 25 mg 08/07/23 09:00 08/07/23 08:21 Hydralazine Hcl 25 Mg Tab PO 25 mg BID HONG Administration Piperacillin Sod/Tazobactam 100 mls @ 25 mls/hr 08/07/23 02:00 08/07/23 03:52 Sod 3.375 gm/ Sodium Chloride IVPB 25 mls/hr Q12H HONG Administration Protocol Vancomycin HCl 1,500 mg/ 500 mls @ 167 mls/hr 08/07/23 22:00 Sodium Chloride IVPB 08/08/23 00:59 ONCE ONE Miscellaneous Information 1 each 08/06/23 19:52 Vancomycin Iv Per Pharmacy 1 Each Misc MISCELLANE DIRECTED PRN Per Protocol Protocol Potassium Chloride 10 meq 08/07/23 09:00 08/07/23 08:21 Potassium Chloride Er 10 Meq Tab.Er.Prt PO 10 meq DAILY HONG Administration Sertraline HCl 25 mg 08/07/23 09:00 08/07/23 08:21 Sertraline 25 Mg Tab PO 25 mg DAILY HONG Administration Sodium Bicarbonate 650 mg 08/07/23 09:00 08/07/23 08:21 Sodium Bicarbonate Tab 650 Mg Tab PO 650 mg BID HONG Administration Intake and Output 08/06/23 08/07/23 08/07/23 22:59 06:59 14:59 Other: Weight 83.7 kg 83.7 kg Patient Weight 08/08/23 06:59 Weight 83.7 kg 08/06/23 20:10 08/07/23 03:23
--- NOTE | 2023-08-08 12:24 | P.PN ---
Subjective Progress Note Date: 08/08/23 (delayed charting seen at 1130) Patient is an 78-year-old female with diabetes mellitus type 2, paroxysmal atrial fibrillation, Parkinson's, seizure disorder, sick sinus syndrome status post pacemaker, and chronic kidney disease stage III as well as other comorbid conditions who presented to the ER at the direction of Dr. Jones. On arrival to the ER she was hypertensive with a blood pressure of 198/86. Laboratory analysis was remarkable for white blood cell count 10.7, BUN 44, creatinine 2.64. She is admitted for acute on chronic knee infection. She was started on vancomycin and Zosyn. Patient has a remote history of a left total knee replacement done an outside hospital. She ultimately developed a periprosthetic joint infection which required several attempts at infection control with placement of a static antibiotic spacer. After her last surgery she was informed by family that she would likely need an above knee amputation for infection recurred. Recently the patient developed a draining sinus over the anterior aspect of the knee will stay on her long term when she therefore was referred to Dr. Jones. He recommended admitting the patient for possible AKA prior to her becoming systemically ill from the underlying infection. Patient seen and examined at bedside with use of the creative services writer. She does complain of some pain in her leg. We had very long discussion using creative services writer services. She initially tells me that she is able to walk on at the long term. She believes it is 2002. She believes the month of April. She believes she does not use a walker or a wheelchair. She cannot recall the name of the facility. She does not recall that she is in the hospital. She is unsure what day she came here. She does not recall having an infection in her leg, but thinks its just arthritis. Review of the long term records the patient uses a wheelchair and a Nba lift and is a 2 person assistance. Vital signs reviewed General: nontoxic, no distress, appears at stated age Cardiovascular: S1S2 reg, no murmur, positive posterior tibial pulse bilateral, Lungs: Decreased bs bilateral, no rhonchi, no rales , no accessory muscle use Abdominal: soft, nontender to palpation, no guarding, no appreciable organomegaly Ext: no gross muscle atrophy, no edema b/l lower extremities, no contractures Neuro: CN II-XI grossly intact, no focal neuro deficits Urine: Quarter-sized open area on the left knee with purulent drainage, no surr ounding warmth or erythema. 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, draining sinus tract -Ortho recs appreciated -Zosyn 3.375 g IV piggyback every 12 hours D # 3. Daptomycin 400 mg IVPB every 48 hours. D # 2 - case discussed with Dr. Berger and if not Gram positive grow then can stop dapto. - Await knee culture- current gram neg - Await blood culture- neg X 24 hours - Vascular note reviewed Plan is for AKA once consent obtained Chronic kidney disease stage III Paroxysmal atrial fibrillation, history of sick sinus syndrome status post perma nent pacemaker Parkinson's disease Hypertension Dyslipidemia -Lipitor on hold due to use of daptomycin, Eliquis on hold for possible surgery -Continue with Coreg 25 mg by mouth twice daily, Lasix 40 mg daily, hydralazine 75 mg 3 times daily -Sodium bicarb 650 milligrams twice daily -Follow blood pressures - Cardio note reviewed: hydralazine increased to 75 gm TID, no contraindication to L AKA, eliquis on hold Dementia - patient is A &O to self. She is unable to comprehend why she is hospitalized. She lacks decision making capacity and all complex decicsion shoud be made by next of kin. DIscussed with vascular COMPOSITION INSTRUCTOR and family will be contacted for consent for AKA. Diabetes mellitus type 2 -Not on any oral medications -Sliding-scale insulin -Follow blood sugars -Check A1c pending. Chronic: Anemia Muscle weakness Dysphasia Gout Gastritis Imaging: None new Data Review: Labs still pending. Will review A1C, CBC, and BMP when available. DVT prophylaxis: Heparin in AM while eliquis on hold Anticipated discharge date: pending clinical course Anticipated discharge place: pending clinical course This dictation was prepared using [employer] voice recognition software. Though every attempt is made to correct errors during dictation some may still exist. Objective - Vital Signs Vital signs: Vital Signs Temp 98.3 F 08/08/23 08:00 Pulse 82 08/08/23 08:00 Resp 17 08/08/23 08:00 BP 155/70 08/08/23 08:00 Pulse Ox 99 08/08/23 08:00 FiO2 Intake & Output 08/07/23 08/08/23 08/08/23 18:59 06:59 18:59 Output Total 1 Balance -1 Weight 83.7 kg Output: Urine 1 Other: Voiding Method Diaper Diaper # Voids 2 - Labs CBC & Chem 7: 08/06/23 20:10 08/07/23 03:23 Labs: Abnormal Lab Results - Last 24 Hours (Table) 08/07/23 08/07/23 08/08/23 Range/Units 16:58 22:17 06:03 POC Glucose (mg/dL) 152 H 134 H 115 H (70-110) mg/dL 08/08/23 Range/Units 11:30 POC Glucose (mg/dL) 123 H (70-110) mg/dL Microbiology - Last 24 Hours (Table) 08/06/23 20:10 Gram Stain - Preliminary Knee - Left Wound Culture - Preliminary Gram Neg Bacilli
[2023-08-08 13:27] LABS: Anisocytosis Slight; HCT 32.9 % (34.0-46.0); HGB 10.3 gm/dL (11.4-16.0); Hypochromasia Marked; MCH 31.1 pg (25.0-35.0); MCHC 31.2 g/dL (31.0-37.0); MCV 99.5 fL (80.0-100.0); Macrocytosis Slight; Mean Platelet Volume 7.8; Platelet Count 239 k/uL (150-450); RDW 16.7 % (11.5-15.5); WBC 11.3 k/uL (3.8-10.6)
[2023-08-08 13:37] LABS: African American GFR (CKD) 18 (>60 ml/min/1.73 sqM); Non-African American GFR(CKD) 16 (>60 ml/min/1.73 sqM)
[2023-08-08 13:38] LABS: African American GFR (CKD) 19 (>60 ml/min/1.73 sqM); Anion Gap 9 mmol/L; Blood Urea Nitrogen 39 mg/dL (7-17); Calcium 8.3 mg/dL (8.4-10.2); Carbon Dioxide 26 mmol/L (22-30); Chloride 103 mmol/L (98-107); Glucose 118 mg/dL (74-99); Non-African American GFR(CKD) 16 (>60 ml/min/1.73 sqM); Potassium 4.1 mmol/L (3.5-5.1); Sodium 138 mmol/L (137-145)
[2023-08-08] MEDS: SODIUM BICARBONATE TAB 650 MG TAB PO SCH ×2 (14:15→22:01)
[2023-08-08] MEDS: SERTRALINE 25 MG TAB PO SCH (14:15)
[2023-08-08 16:37] LABS: Glucose,Whole Blood 152 mg/dL (70-110)
[2023-08-08 20:33] LABS: Glucose,Whole Blood 169 mg/dL (70-110)
[2023-08-08] MEDS: clonazePAM 0.5 MG TAB PO SCH (22:01)
[2023-08-08] MEDS ORDERED: CEFEPIME 2 GM in SODIUM CHLORIDE 0.9% 100 ML IVPB SCH (22:45)
[2023-08-09] MEDS: NYSTATIN 100,000 UNIT/GM POWD 15 GM TOPICAL SCH ×5 (00:36→20:51)
[2023-08-09 05:40] LABS: Appearance,Urine Slightly Cloudy (Clear); Bilirubin,Urine Negative (Negative); Color,Urine Yellow; Glucose,Urine (UA) Negative (Negative); Ketones,Urine Negative (Negative); PH, Urine 6.5 (5.0-8.0); Protein,Urine 2+ (Negative); Specific Gravity,Urine 1.015 (1.001-1.035)
[2023-08-09 05:40] LABS: Glucose,Whole Blood 132 mg/dL (70-110)
[2023-08-09 05:41] LABS: Blood,Urine Small (Negative); Leukocyte Esterase,Urine Moderate (Negative); Nitrite,Urine Negative (Negative); Urobilinogen,Urine <2.0 mg/dL (<2.0)
[2023-08-09 05:43] LABS: Bacteria,Urine Rare /hpf; Mucus,Urine Rare /hpf; RBC,Urine 9 /hpf (0-5); Squamous Epithelial Cell,Urine 6 /hpf (0-4); WBC,Urine 9 /hpf (0-5)
[2023-08-09] MEDS: carvediloL 12.5 MG TAB PO SCH ×2 (06:54→18:22)
[2023-08-09] MEDS: INSULIN ASPART (NovoLOG) 100 UNIT/ML VIAL SQ SCH ×4 (06:54→20:49)
[2023-08-09 07:59] LABS: Anisocytosis Slight; HCT 33.1 % (34.0-46.0); HGB 9.9 gm/dL (11.4-16.0); Hypochromasia Marked; MCH 30.4 pg (25.0-35.0); MCHC 29.9 g/dL (31.0-37.0); MCV 101.5 fL (80.0-100.0); Macrocytosis Slight; Mean Platelet Volume 7.8; Platelet Count 237 k/uL (150-450); RBC 3.26 m/uL (3.80-5.40); RDW 16.9 % (11.5-15.5); WBC 9.3 k/uL (3.8-10.6)
[2023-08-09 08:23] LABS: African American GFR (CKD) 18 (>60 ml/min/1.73 sqM); Anion Gap 9 mmol/L; Blood Urea Nitrogen 41 mg/dL (7-17); Calcium 8.4 mg/dL (8.4-10.2); Carbon Dioxide 25 mmol/L (22-30); Chloride 105 mmol/L (98-107); Glucose 119 mg/dL (74-99); Non-African American GFR(CKD) 16 (>60 ml/min/1.73 sqM); Potassium 4.1 mmol/L (3.5-5.1); Sodium 139 mmol/L (137-145)
[2023-08-09] MEDS: MAGNESIUM OXIDE 400 MG TAB PO SCH (10:02)
[2023-08-09] MEDS: FERROUS SULFATE 325 MG TAB PO SCH ×2 (10:02)
[2023-08-09] MEDS: SODIUM BICARBONATE TAB 650 MG TAB PO SCH ×2 (10:02→20:28)
[2023-08-09] MEDS: PANTOPRAZOLE 40 MG TABLET PO SCH ×2 (10:02)
[2023-08-09] MEDS: allopurinoL 300 MG TAB PO SCH (10:03)
[2023-08-09] MEDS: HYDROcodone/APAP 5-325MG 1 EACH TAB PO SCH (10:03)
[2023-08-09] MEDS: FUROSEMIDE 40 MG TAB PO SCH ×2 (10:03→11:44)
[2023-08-09] MEDS: POTASSIUM CHLORIDE ER 10 MEQ TAB.ER.PRT PO SCH ×2 (10:03→11:44)
[2023-08-09] MEDS: GABAPENTIN 300 MG CAP PO SCH (10:03)
[2023-08-09] MEDS: hydrALAZINE HCL 50 MG TAB PO SCH ×4 (10:04→20:27)
[2023-08-09] MEDS: SERTRALINE 25 MG TAB PO SCH ×2 (10:05→11:45)
[2023-08-09] MEDS: CEFEPIME 1 GM in SODIUM CHLORIDE 0.9% 50 ML IVPB SCH ×2 (10:40→14:03)
--- NOTE | 2023-08-09 11:25 | P.PN ---
Subjective Progress Note Date: 08/09/23 No new complaints today. Plan is for AKA today. Gen: awake, alert HEENT: normocephalic, atraumatic, good hearing acuity, moist mucous membranes Resp: good air exchange, breathing comfortably with no accessory muscle use CVS: good distal perfusion x 4, GI: soft, NTTP, ND : no SPT, no CVAT, rosales catheter not present MSK: no pitting edema, no clubbing Neuro: non-focal, moving all extremities Psych: cooperative, euthymic mood Hospital Course: Patient is an 78-year-old female with diabetes mellitus type 2, paroxysmal atrial fibrillation, Parkinson's, seizure disorder, sick sinus syndrome status p ost pacemaker, and chronic kidney disease stage III as well as other comorbid conditions who presented to the ER at the direction of Dr. Jones. On arrival to the ER she was hypertensive with a blood pressure of 198/86. Laboratory analysis was remarkable for white blood cell count 10.7, BUN 44, creatinine 2.64. She is admitted for acute on chronic knee infection. She was started on vancomycin and Zosyn. Patient has a remote history of a left total knee replacement done an outside hospital. She ultimately developed a periprosthetic joint infection which required several attempts at infection control with placement of a static antibiotic spacer. After her last surgery she was informed by family that she would likely need an above knee amputation for infection recurred. Recently the patient developed a draining sinus over the anterior aspect of the knee will stay on her care home when she therefore was referred to Dr. Jones. He recommended admitting the patient for possible AKA prior to her becoming systemically ill from the underlying infection. Patient seen and examined at bedside with use of the warrant server. She does complain of some pain in her leg. We had very long discussion using warrant server services. She initially tells me that she is able to walk on at the care home. She believes it is 2002. She believes the month of April. She believes she does not use a walker or a wheelchair. She cannot recall the name of the facility. She does not recall that she is in the hospital. She is unsure what day she came here. She does not recall having an infection in her leg, but thinks its just arthritis. Assessment/Plan: Recurrent left knee periprosthetic joint infection with underlying chronic infection, draining sinus tract -Ortho recs appreciated -Zosyn 3.375 g IV piggyback every 12 hours D # 3. Daptomycin 400 mg IVPB every 48 hours. D # 2 - appreciate ID recommendations - Knee Cx shows pseudomonas (R - ciprofloxacin, imipenem, levofloxacin, meropenem, zosyn) and MRSA, reviewed 08/09 - Await blood culture- neg X 48 hours - Vascular note reviewed Plan is for AKA once consent obtained Chronic kidney disease stage III Paroxysmal atrial fibrillation, history of sick sinus syndrome status post permanent pacemaker Parkinson's disease Hypertension Dyslipidemia -Lipitor on hold due to use of daptomycin, Eliquis on hold for possible surgery -Continue with Coreg 25 mg by mouth twice daily, Lasix 40 mg daily, hydralazine 75 mg 3 times daily -Sodium bicarb 650 milligrams twice daily -Follow blood pressures - Cardio note reviewed: hydralazine increased to 75 gm TID, no contraindication to L AKA, eliquis on hold Dementia - patient is A &O to self. She is unable to comprehend why she is hospitalized. She lacks decision making capacity and all complex decicsion shoud be made by next of kin. DIscussed with vascular LAW RESEARCHER and family will be contacted for consent for AKA. Diabetes mellitus type 2 -Not on any oral medications -Sliding-scale insulin -Follow blood sugars -Check A1c pending. Chronic: Anemia Muscle weakness Dysphasia Gout Gastritis Imaging: None new Data Review: Labs still pending. Will review A1C, CBC, and BMP when available. DVT prophylaxis: Heparin in AM while eliquis on hold Anticipated discharge date: pending clinical course Anticipated discharge place: pending clinical course This dictation was prepared using [employer] voice recognition software. Though every attempt is made to correct errors during dictation some may still exist. Objective - Vital Signs Vital signs: Vital Signs Temp 97.6 F 08/09/23 07:29 Pulse 75 08/09/23 07:29 Resp 19 08/09/23 07:29 BP 178/75 08/09/23 07:29 Pulse Ox 100 08/09/23 07:29 FiO2 Intake & Output 08/08/23 08/09/23 08/09/23 18:59 06:59 18:59 Intake Total 550 Balance 550 Intake: Intake, IV Titration 100 Amount Piperacillin-Tazobactam 3 100 .375 gm In Sodium Chloride 0.9% 100 ml @ 25 mls/hr IVPB Q12H [facility] Rx# :[id number] Oral 450 Other: Voiding Method Diaper Diaper Diaper External Catheter - Labs CBC & Chem 7: 08/09/23 07:31 08/09/23 07:31 Labs: Abnormal Lab Results - Last 24 Hours (Table) 08/08/23 08/08/23 08/08/23 Range/Units 11:30 12:37 12:37 WBC (3.8-10.6) k/uL RBC (3.80-5.40) m/uL Hgb (11.4-16.0) gm/dL Hct (34.0-46.0) % MCV (80.0-100.0) fL MCHC (31.0-37.0) g/dL RDW (11.5-15.5) % BUN (7-17) mg/dL Creatinine 2.71 H (0.52-1.04) mg/dL Glucose (74-99) mg/dL POC Glucose (mg/dL) 123 H (70-110) mg/dL Hemoglobin A1c 6.9 H (<=6.0) % Calcium (8.4-10.2) mg/dL Urine Appearance (Clear) Urine Protein (Negative) Urine Blood (Negative) Ur Leukocyte Esterase (Negative) Urine RBC (0-5) /hpf Urine WBC (0-5) /hpf Ur Squamous Epith Cells (0-4) /hpf Urine Bacteria (None) /hpf Urine Mucus (None) /hpf 08/08/23 08/08/23 08/08/23 Range/Units 12:37 12:37 16:36 WBC 11.3 H (3.8-10.6) k/uL RBC 3.30 L (3.80-5.40) m/uL Hgb 10.3 L (11.4-16.0) gm/dL Hct 32.9 L (34.0-46.0) % MCV (80.0-100.0) fL MCHC (31.0-37.0) g/dL RDW 16.7 H (11.5-15.5) % BUN 39 H (7-17) mg/dL Creatinine 2.66 H (0.52-1.04) mg/dL Glucose 118 H (74-99) mg/dL POC Glucose (mg/dL) 152 H (70-110) mg/dL Hemoglobin A1c (<=6.0) % Calcium 8.3 L (8.4-10.2) mg/dL Urine Appearance (Clear) Urine Protein (Negative) Urine Blood (Negative) Ur Leukocyte Esterase (Negative) Urine RBC (0-5) /hpf Urine WBC (0-5) /hpf Ur Squamous Epith Cells (0-4) /hpf Urine Bacteria (None) /hpf Urine Mucus (None) /hpf 08/08/23 08/09/23 08/09/23 Range/Units 20:32 05:20 05:38 WBC (3.8-10.6) k/uL RBC (3.80-5.40) m/uL Hgb (11.4-16.0) gm/dL Hct (34.0-46.0) % MCV (80.0-100.0) fL MCHC (31.0-37.0) g/dL RDW (11.5-15.5) % BUN (7-17) mg/dL Creatinine (0.52-1.04) mg/dL Glucose (74-99) mg/dL POC Glucose (mg/dL) 169 H 132 H (70-110) mg/dL Hemoglobin A1c (<=6.0) % Calcium (8.4-10.2) mg/dL Urine Appearance Slightly Cloudy H (Clear) Urine Protein 2+ H (Negative) Urine Blood Small H (Negative) Ur Leukocyte Esterase Moderate H (Negative) Urine RBC 9 H (0-5) /hpf Urine WBC 9 H (0-5) /hpf Ur Squamous Epith Cells 6 H (0-4) /hpf Urine Bacteria Rare H (None) /hpf Urine Mucus Rare H (None) /hpf 08/09/23 08/09/23 Range/Units 07:31 07:31 WBC (3.8-10.6) k/uL RBC 3.26 L (3.80-5.40) m/uL Hgb 9.9 L (11.4-16.0) gm/dL Hct 33.1 L (34.0-46.0) % MCV 101.5 H (80.0-100.0) fL MCHC 29.9 L (31.0-37.0) g/dL RDW 16.9 H (11.5-15.5) % BUN 41 H (7-17) mg/dL Creatinine 2.73 H (0.52-1.04) mg/dL Glucose 119 H (74-99) mg/dL POC Glucose (mg/dL) (70-110) mg/dL Hemoglobin A1c (<=6.0) % Calcium (8.4-10.2) mg/dL Urine Appearance (Clear) Urine Protein (Negative) Urine Blood (Negative) Ur Leukocyte Esterase (Negative) Urine RBC (0-5) /hpf Urine WBC (0-5) /hpf Ur Squamous Epith Cells (0-4) /hpf Urine Bacteria (None) /hpf Urine Mucus (None) /hpf Microbiology - Last 24 Hours (Table) 08/07/23 12:12 Blood Culture - Preliminary Blood 08/06/23 20:10 Gram Stain - Final Knee - Left Wound Culture - Final Pseudomonas aeruginosa Methicillin resist S. aureus 08/07/23 03:23 Blood Culture - Preliminary Blood
[2023-08-09 11:47] LABS: Glucose,Whole Blood 120 mg/dL (70-110)
[2023-08-09] MEDS ORDERED: SODIUM CHLORIDE 0.9% 1,000 ML IV ONE (12:47)
[2023-08-09] MEDS ORDERED: LIDOCAINE 1% INJ 10MG/ML (20 ML MDV) ONE (13:58)
[2023-08-09] MEDS ORDERED: NEOSTIGMINE 1 MG/ML 10 ML VIAL ONE (13:58)
[2023-08-09] MEDS ORDERED: fentaNYL (PF) 50 MCG/ML 2 ML AMP ONE (13:58)
[2023-08-09] MEDS ORDERED: GLYCOPYRROLATE 0.2 MG/ML 2 ML VIAL ONE (13:58)
[2023-08-09] MEDS ORDERED: ROCURONIUM 10 MG/ML (5 ML VIAL) IV ONE (13:58)
[2023-08-09] MEDS ORDERED: PROPOFOL 10 MG/ML 20 ML VIAL IV ONE (13:58)
[2023-08-09] MEDS ORDERED: ceFAZolin 2 GM in SODIUM CHLORIDE 0.9% 500 ML 500 ML IRRIGATION ONE (14:29)
--- NOTE | 2023-08-09 15:49 | P.OP ---
Date of Procedure: 08/09/23 Description of Procedure: Preoperative diagnosis: Chronically infected left knee hardware, previous spacer, chronic wound with draining sinus Postoperative diagnosis: Same Procedure: Left Above-knee amputation Surgeon: Alexandrea Akhtar D.O. Anesthesia: Gen. EBL: 100 mL IV fluids: See records Urine output: Not measured Drains: None Complications: None immediately apparent Condition: Stable to recovery Operative indication and findings: Patient is 78-year-old female previously had multiple left knee surgeries including a antibiotic spacer was replaced with a past year, recently she is having worsening issues with a wound developed draining sinus. Due to this and a chronic continued infection discussion was had regarding a left above-knee amputation. The patient herself was not fully competent to make decisions and does have dementia/Alzheimer's therefore long discussion was had with the patient's son who is her next of kin. He seemingly understands the risks and benefits and is willing to proceed Procedure in detail: The patient was taken to the operative suite and placed in supine position. After adequate anesthesia, the left lower extremity was prepped and draped in usual sterile fashion. A preprocedure timeout was performed, all parties were in agreement. Skin marker was utilized and the incision was marked at the mid thigh due to x-rays of hardware in the distal femoral shaft Skin incision was performed and deepened through the subcutaneous tissues to the muscular fascia. The saphenous vein was identified and ligated with 2-0 silk and divided. The muscle groups of the anterior and medial thigh were divided with electrocautery at the same level of the skin incision. The neurovascular bundle was identified on the medial aspect of the thigh. The artery and veins were isolated and suture ligated using 2-0 silk ligature. The sciatic nerve was pulled on stretch and ligated with 2-0 silk tie and divided. The femur was then cleared of its periosteal tissue is elevated proximally and was divided with the oscillating saw. The posterior thigh muscles were then divided with electrocautery. The proximal end of the transected femur was smoothed with a rasp. The amputation site was then copiously irrigated. Hemostasis was controlled with electrocautery. The periosteum was reapproximated using interrupted sutures of 2-0 Vicryl. The fascia was reapproximated with interrupted [id number] sutures of 2-0 Vicryl. The skin was reapproximated with yasir and nylon. A dressing with gauze, Kerlix and a bandage were placed. The patient tolerated the procedure well and was transported to PACU in stable condition
[2023-08-09] MEDS ORDERED: fentaNYL (PF) 50 MCG/ML 2 ML AMP IVP ONE ×2 (16:00→16:13)
[2023-08-09] MEDS ORDERED: HYDROmorphone 0.5 MG/0.5 ML SYRINGE IVP PRN (16:12)
[2023-08-09] MEDS ORDERED: ONDANSETRON 4 MG/2 ML VIAL IVP ONE (16:12)
[2023-08-09] MEDS ORDERED: DEXAMETHASONE SOD PHOSPHATE 4 MG/ML 1 ML VIAL IV ONE (16:12)
[2023-08-09] MEDS ORDERED: MEPERIDINE 50 MG/ML SYRINGE IVP ONE ×2 (16:46→17:00)
--- NOTE | 2023-08-09 16:51 | P.PN ---
Subjective Progress Note Date: 08/08/23 Principal diagnosis: Reason for follow-up is recurrent left knee septic arthritis Patient is a 78-year-old female with a past medical history pertinent for atrial fibrillation diabetes mellitus hypertension hyperlipidemia dementia patient did have a history of 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 knee that has been treated by her orthopedic surgeon with a static antibiotic spacer however the patient did have a development of a draining sinus from the left knee for the patient has been advised about the knee amputation for the patient has been admitted to the hospital On today's evaluation that is 08/08/2023 the patient remains to be afebrile, the patient is breathing comfortably on room air and no need for supplemental oxygen, the patient denies having any chest pain and denies any worsening pain to the left knee area no vomiting or diarrhea has been reported Patient did have white count of 11.3, creatinine is 2.66 Objective - Vital Signs Vital signs: Vital Signs Temp 98.5 F 08/08/23 20:30 Pulse 73 08/08/23 20:30 Resp 16 08/08/23 20:30 BP 154/80 08/08/23 20:30 Pulse Ox 98 08/08/23 20:30 FiO2 Intake & Output 08/08/23 08/08/23 08/09/23 06:59 18:59 06:59 Intake Total 550 Output Total 1 Balance -1 550 Intake: Intake, IV Titration 100 Amount Piperacillin-Tazobactam 3 100 .375 gm In Sodium Chloride 0.9% 100 ml @ 25 mls/hr IVPB Q12H [facility] Rx# :[id number] Oral 450 Output: Urine 1 Other: Voiding Method Diaper Diaper - Exam GENERAL DESCRIPTION: An elderly female lying in bed in no distress RESPIRATORY SYSTEM: Unlabored breathing , clear to auscultation anteriorly HEART: S1 S2 regular rate and rhythm , ABDOMEN: Soft , no tenderness EXTREMITIES: Left knee wound with some slough tissue no surrounding swelling minimal drainage on the dressing - Labs CBC & Chem 7: 08/09/23 07:31 08/09/23 07:31 Labs: Abnormal Lab Results - Last 24 Hours (Table) 08/08/23 08/08/23 08/08/23 Range/Units 06:03 11:30 12:37 WBC (3.8-10.6) k/uL RBC (3.80-5.40) m/uL Hgb (11.4-16.0) gm/dL Hct (34.0-46.0) % RDW (11.5-15.5) % BUN (7-17) mg/dL Creatinine (0.52-1.04) mg/dL Glucose (74-99) mg/dL POC Glucose (mg/dL) 115 H 123 H (70-110) mg/dL Hemoglobin A1c 6.9 H (<=6.0) % Calcium (8.4-10.2) mg/dL 08/08/23 08/08/23 08/08/23 Range/Units 12:37 12:37 12:37 WBC 11.3 H (3.8-10.6) k/uL RBC 3.30 L (3.80-5.40) m/uL Hgb 10.3 L (11.4-16.0) gm/dL Hct 32.9 L (34.0-46.0) % RDW 16.7 H (11.5-15.5) % BUN 39 H (7-17) mg/dL Creatinine 2.71 H 2.66 H (0.52-1.04) mg/dL Glucose 118 H (74-99) mg/dL POC Glucose (mg/dL) (70-110) mg/dL Hemoglobin A1c (<=6.0) % Calcium 8.3 L (8.4-10.2) mg/dL 08/08/23 08/08/23 Range/Units 16:36 20:32 WBC (3.8-10.6) k/uL RBC (3.80-5.40) m/uL Hgb (11.4-16.0) gm/dL Hct (34.0-46.0) % RDW (11.5-15.5) % BUN (7-17) mg/dL Creatinine (0.52-1.04) mg/dL Glucose (74-99) mg/dL POC Glucose (mg/dL) 152 H 169 H (70-110) mg/dL Hemoglobin A1c (<=6.0) % Calcium (8.4-10.2) mg/dL Microbiology - Last 24 Hours (Table) 08/07/23 12:12 Blood Culture - Preliminary Blood 08/06/23 20:10 Gram Stain - Final Knee - Left Wound Culture - Final Pseudomonas aeruginosa Methicillin resist S. aureus 08/07/23 03:23 Blood Culture - Preliminary Blood Assessment and Plan (1) Infection of knee Current Visit: Yes Status: Acute Code(s): M00.9 - PYOGENIC ARTHRITIS, UNSPECIFIED SNOMED Code(s): 598151206 (2) Leukocytosis Current Visit: No Status: Acute Code(s): D72.829 - ELEVATED WHITE BLOOD CELL COUNT, UNSPECIFIED SNOMED Code(s): 262849026 Plan: 1patient with a history of 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 knee and apparently did have multiple surgeries and has been treated with multiple courses of antibiotic now with a 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 and per determination by tabetic surgery patient will need left above-knee amputation in order to cure of this infection and apparently the patient and family seem to be agreeable to that for which vascular surgery has been consulted 2-blood and local cultures obtained and currently growing gram-negative bacilli 3-patient to continue Zosyn and daptomycin while waiting for the cultures to finalize Dictation was produced using [employer] dictation software. please excuse any grammatical, word or spelling errors. Time with Patient: Less than 30
--- NOTE | 2023-08-09 16:53 | P.PN ---
Subjective Progress Note Date: 08/09/23 Principal diagnosis: Reason for follow-up is recurrent left knee septic arthritis Patient is a 78-year-old female with a past medical history pertinent for atrial fibrillation diabetes mellitus hypertension hyperlipidemia dementia patient did have a history of 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 knee that has been treated by her orthopedic surgeon with a static antibiotic spacer however the patient did have a development of a draining sinus from the left knee for the patient has been advised about the knee amputation for the patient has been admitted to the hospital On today's evaluation that is 08/09/2023, the patient continues to be afebrile and is breathing comfortably on room air, and patient denies any shortness of breath, chest pain and no cough or sputum production, patient denies abdominal pain, no nausea/vomiting and no diarrhea has been reported, patient denies any worsening pain to the left knee Patient did have white count normalized to 9.3, creatinine is 2.73 local cultures with MRSA and pseudomonas aeruginosa Objective - Vital Signs Vital signs: Vital Signs Temp 97.9 F 08/09/23 12:46 Pulse 75 08/09/23 12:46 Resp 18 08/09/23 12:46 BP 146/62 08/09/23 12:46 Pulse Ox 100 08/09/23 12:46 FiO2 Intake & Output 08/08/23 08/09/23 08/09/23 18:59 06:59 18:59 Intake Total 550 151 Output Total 650 Balance 550 -499 Intake: IV 151 Intake, IV Titration 100 Amount Piperacillin-Tazobactam 3 100 .375 gm In Sodium Chloride 0.9% 100 ml @ 25 mls/hr IVPB Q12H [facility] Rx# :[id number] Oral 450 Output: Urine 650 Other: Voiding Method Diaper Diaper Diaper External Catheter - Exam GENERAL DESCRIPTION: An elderly female lying in bed in no distress RESPIRATORY SYSTEM: Unlabored breathing , clear to auscultation anteriorly HEART: S1 S2 regular rate and rhythm , ABDOMEN: Soft , no tenderness EXTREMITIES: Left knee wound with some slough tissue no surrounding swelling minimal drainage on the dressing - Labs CBC & Chem 7: 08/09/23 07:31 08/09/23 07:31 Labs: Abnormal Lab Results - Last 24 Hours (Table) 08/08/23 08/08/23 08/08/23 Range/Units 12:37 16:36 20:32 RBC (3.80-5.40) m/uL Hgb (11.4-16.0) gm/dL Hct (34.0-46.0) % MCV (80.0-100.0) fL MCHC (31.0-37.0) g/dL RDW (11.5-15.5) % BUN (7-17) mg/dL Creatinine (0.52-1.04) mg/dL Glucose (74-99) mg/dL POC Glucose (mg/dL) 152 H 169 H (70-110) mg/dL Hemoglobin A1c 6.9 H (<=6.0) % Urine Appearance (Clear) Urine Protein (Negative) Urine Blood (Negative) Ur Leukocyte Esterase (Negative) Urine RBC (0-5) /hpf Urine WBC (0-5) /hpf Ur Squamous Epith Cells (0-4) /hpf Urine Bacteria (None) /hpf Urine Mucus (None) /hpf 08/09/23 08/09/23 08/09/23 Range/Units 05:20 05:38 07:31 RBC 3.26 L (3.80-5.40) m/uL Hgb 9.9 L (11.4-16.0) gm/dL Hct 33.1 L (34.0-46.0) % MCV 101.5 H (80.0-100.0) fL MCHC 29.9 L (31.0-37.0) g/dL RDW 16.9 H (11.5-15.5) % BUN (7-17) mg/dL Creatinine (0.52-1.04) mg/dL Glucose (74-99) mg/dL POC Glucose (mg/dL) 132 H (70-110) mg/dL Hemoglobin A1c (<=6.0) % Urine Appearance Slightly Cloudy H (Clear) Urine Protein 2+ H (Negative) Urine Blood Small H (Negative) Ur Leukocyte Esterase Moderate H (Negative) Urine RBC 9 H (0-5) /hpf Urine WBC 9 H (0-5) /hpf Ur Squamous Epith Cells 6 H (0-4) /hpf Urine Bacteria Rare H (None) /hpf Urine Mucus Rare H (None) /hpf 08/09/23 08/09/23 Range/Units 07:31 11:45 RBC (3.80-5.40) m/uL Hgb (11.4-16.0) gm/dL Hct (34.0-46.0) % MCV (80.0-100.0) fL MCHC (31.0-37.0) g/dL RDW (11.5-15.5) % BUN 41 H (7-17) mg/dL Creatinine 2.73 H (0.52-1.04) mg/dL Glucose 119 H (74-99) mg/dL POC Glucose (mg/dL) 120 H (70-110) mg/dL Hemoglobin A1c (<=6.0) % Urine Appearance (Clear) Urine Protein (Negative) Urine Blood (Negative) Ur Leukocyte Esterase (Negative) Urine RBC (0-5) /hpf Urine WBC (0-5) /hpf Ur Squamous Epith Cells (0-4) /hpf Urine Bacteria (None) /hpf Urine Mucus (None) /hpf Microbiology - Last 24 Hours (Table) 08/07/23 03:23 Blood Culture - Preliminary Blood 08/07/23 12:12 Blood Culture - Preliminary Blood 08/06/23 20:10 Gram Stain - Final Knee - Left Wound Culture - Final Pseudomonas aeruginosa Methicillin resist S. aureus Assessment and Plan (1) Infection of knee Current Visit: Yes Status: Acute Code(s): M00.9 - PYOGENIC ARTHRITIS, UNSPECIFIED SNOMED Code(s): 007007671 (2) Leukocytosis Current Visit: No Status: Acute Code(s): D72.829 - ELEVATED WHITE BLOOD CELL COUNT, UNSPECIFIED SNOMED Code(s): 919367370 Plan: 1patient with a history of 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 knee and apparently did have multiple surgeries and has been treated with multiple courses of antibiotic now with a 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 and per determination by tabetic surgery patient will need left above-knee amputation in order to cure of this infection and apparently the patient and family seem to be agreeable to that for which vascular surgery has been consulted 2-blood and local cultures obtained and currently growing MRSA and pseudomonas that was intermediate to Zosyn 3-patient antibiotic has been resistant to cefepime and Zosyn was discontinued last night continue the daptomycin waiting for surgery this afternoon Multiple family members at the bedside questions are answered Dictation was produced using [employer] software. please excuse any gramma tical, word or spelling errors. Time with Patient: Less than 30
[2023-08-09] MEDS: LACTATED RINGERS 1,000 ML IV SCH (17:55)
[2023-08-09 18:06] LABS: Glucose,Whole Blood 176 mg/dL (70-110)
[2023-08-09] MEDS: MORPHINE SULFATE 2 MG/ML SYRINGE IVP PRN (18:22)
[2023-08-09] MEDS: HYDROcodone/APAP 5-325MG 1 EACH TAB PO PRN (20:28)
[2023-08-09] MEDS: clonazePAM 0.5 MG TAB PO SCH (20:28)
[2023-08-09 20:35] LABS: Glucose,Whole Blood 177 mg/dL (70-110)
[2023-08-10] MEDS: HYDROcodone/APAP 5-325MG 1 EACH TAB PO PRN ×4 (04:41→21:30)
[2023-08-10 06:02] LABS: Glucose,Whole Blood 146 mg/dL (70-110)
[2023-08-10] MEDS: INSULIN ASPART (NovoLOG) 100 UNIT/ML VIAL SQ SCH ×4 (06:13→21:32)
[2023-08-10] MEDS: carvediloL 12.5 MG TAB PO SCH ×2 (06:33→17:16)
[2023-08-10] MEDS: MORPHINE SULFATE 2 MG/ML SYRINGE IVP PRN ×2 (06:38→16:11)
[2023-08-10] MEDS: CEFEPIME 1 GM in SODIUM CHLORIDE 0.9% 50 ML IVPB SCH (09:07)
[2023-08-10] MEDS: FERROUS SULFATE 325 MG TAB PO SCH ×2 (09:07→21:30)
[2023-08-10] MEDS: SODIUM BICARBONATE TAB 650 MG TAB PO SCH ×2 (09:07→21:30)
[2023-08-10] MEDS: GABAPENTIN 300 MG CAP PO SCH (09:07)
[2023-08-10] MEDS: MAGNESIUM OXIDE 400 MG TAB PO SCH (09:07)
[2023-08-10] MEDS: POTASSIUM CHLORIDE ER 10 MEQ TAB.ER.PRT PO SCH (09:07)
[2023-08-10] MEDS: allopurinoL 300 MG TAB PO SCH (09:08)
[2023-08-10] MEDS: FUROSEMIDE 40 MG TAB PO SCH (09:08)
[2023-08-10] MEDS: hydrALAZINE HCL 50 MG TAB PO SCH ×3 (09:08→21:30)
[2023-08-10] MEDS: SERTRALINE 25 MG TAB PO SCH (09:09)
[2023-08-10] MEDS: NYSTATIN 100,000 UNIT/GM POWD 15 GM TOPICAL SCH ×2 (09:09→17:17)
[2023-08-10 11:26] LABS: Basophils # (A) 0.03 X 10*3/uL (0.00-0.10); Basophils % (A) 0.2 %; Eosinophils # (A) 0.12 X 10*3/uL (0.04-0.35); Eosinophils % (A) 0.9 %; HCT 25.5 % (37.2-46.3); HGB 7.5 g/dL (12.0-15.0); Lymphocytes % (A) 14.2 %; MCH 29.5 pg (27.0-32.0); MCHC 29.4 g/dL (32.0-37.0); MCV 100.4 FL (80.0-97.0); Mean Platelet Volume 10.9 FL (9.5-12.2); Monocytes # (A) 0.69 X 10*3/uL (0.20-1.00); Monocytes % (A) 5.1 %; NRBC Per 100 WBC 0 X 10*3/uL (0.00-0.01); Neutrophils # (A) 10.59 X 10*3/uL (1.80-7.70); Neutrophils % (A) 78.9 %; Platelet Count 264 X 10*3/uL (140-440); RBC 2.54 X 10*6/uL (4.10-5.20); RDW 16.7 % (11.5-14.5); WBC 13.42 X 10*3/uL (4.50-10.00)
[2023-08-10 11:28] LABS: Glucose,Whole Blood 183 mg/dL (70-110)
[2023-08-10 11:32] LABS: BUN/Creat Ratio 12.57 Ratio (12.00-20.00); Blood Urea Nitrogen 35.2 mg/dL (9.0-27.0); Calcium 8.3 mg/dL (8.7-10.3); Carbon Dioxide 23.4 mmol/L (21.6-31.8); Chloride 106 mmol/L (96-109); Glucose 133 mg/dL (70-110); Magnesium 1.8 mg/dL (1.5-2.4); Potassium 4.7 mmol/L (3.5-5.5); Sodium 141 mmol/L (135-145)
--- NOTE | 2023-08-10 12:25 | P.PN ---
Subjective Progress Note Date: 08/10/23 Principal diagnosis: Recurrent infection left knee, wound Patient seen and examined today as a follow-up. She is postop day #1 for left rudtt-[id number]-dqsi amputation. She states pain is well managed. She has been afebrile. Left knee wound culture did come back as MRSA. She is currently on cefepime and daptomycin. Objective - Vital Signs Vital signs: Vital Signs Temp 98.1 F 08/10/23 07:04 Pulse 85 08/10/23 07:04 Resp 18 08/10/23 07:04 BP 130/67 08/10/23 07:04 Pulse Ox 95 08/10/23 07:04 FiO2 Intake & Output 08/09/23 08/10/23 08/10/23 18:59 06:59 18:59 Intake Total 1051 Output Total 1050 Balance 1 Intake: IV 1051 Output: Urine 950 Estimated Blood Loss 100 Other: Voiding Method Diaper External Catheter External Catheter # Voids 1 # Bowel Movements 1 - Exam General appearance: The patient is alert, oriented, appears in no acute distress. Obese. HET: Head is normocephalic and atraumatic. Pupils are equal and reactive. Neck: Supple. Heart: Regular. Lungs: Equal expansion, normal respiratory effort. Abdomen: Soft, nontender, nondistended. Extremities: Left [id number] amputation stump with dressing clean dry and intact. Neurological: Alert and oriented. - Labs CBC & Chem 7: 08/10/23 06:44 08/10/23 06:44 Labs: Abnormal Lab Results - Last 24 Hours (Table) 08/09/23 08/09/23 08/09/23 Range/Units 11:45 18:04 20:33 POC Glucose (mg/dL) 120 H 176 H 177 H (70-110) mg/dL 08/10/23 Range/Units 05:59 POC Glucose (mg/dL) 146 H (70-110) mg/dL Microbiology - Last 24 Hours (Table) 08/07/23 12:12 Blood Culture - Preliminary Blood 08/07/23 03:23 Blood Culture - Preliminary Blood Assessment and Plan Assessment: 1. Chronic recurrent left knee periprosthetic infection staus post left nshqo-kgp-adop amputation 2. Left knee open wound 3. Coronary artery disease 4. History of atrial fibrillation on Eliquis 5. Diabetes mellitus 6. Epilepsy 7. Parkinson's disorder 8. Hypertension and hyperlipidemia 9. Chronic kidney disease Plan: 1. Arterial ultrasound ordered and reviewed 2. Left hip x-ray ordered and reviewed 3. May resume Eliquis 4. Antibiotics per recommendations from infectious disease 5. Stump dental mechanic and rigid dressing to left [id number] amputation. Order given to case management to contact [facility] 6. Plan for dressing change on postop day #2 Thank you for this consultation, we will continue to follow. The impression and plan of care has been dictated as directed. I performed a history and examination of this patient, discussed the same with the dictator. I agree with the dictator's note ,documented as a scribe. Any additional findings or plans will be noted.
--- NOTE | 2023-08-10 16:37 | P.PN ---
Subjective Progress Note Date: 08/10/23 No new complaints today. Doing well s/p AKA. Pt has no c/o pain. Reports good appetite. Gen: awake, alert HEENT: normocephalic, atraumatic, good hearing acuity, moist mucous membranes Resp: good air exchange, breathing comfortably with no accessory muscle use CVS: good distal perfusion x 4, GI: soft, NTTP, ND : no SPT, no CVAT, rosales catheter not present MSK: no pitting edema, no clubbing Neuro: non-focal, moving all extremities Psych: cooperative, euthymic mood Hospital Course: Patient is an 78-year-old female with diabetes mellitus type 2, paroxysmal atrial fibrillation, Parkinson's, seizure disorder, sick sinus syndrome status post pacemaker, and chronic kidney disease stage III as well as other comorbid conditions who presented to the ER at the direction of Dr. Jones. On arrival to the ER she was hypertensive with a blood pressure of 198/86. Laboratory analysis was remarkable for white blood cell count 10.7, BUN 44, creatinine 2.64. She is admitted for acute on chronic knee infection. She was started on vancomycin and Zosyn. Patient has a remote history of a left total knee replacement done an outside hospital. She ultimately developed a periprosthetic joint infection which required several attempts at infection control with placement of a static antibiotic spacer. After her last surgery she was informed by family that she would likely need an above knee amputation for infection recurred. Recently the patient developed a draining sinus over the anterior aspect of the knee will stay on her alf when she therefore was referred to Dr. Jones. He recommended admitting the patient for possible AKA prior to her becoming systemically ill from the underlying infection. Patient seen and examined at bedside with use of the shoe caser. She does complain of some pain in her leg. We had very long discussion using shoe caser services. She initially tells me that she is able to walk on at the alf. She believes it is 2002. She believes the month of April. She believes she does not use a walker or a wheelchair. She cannot recall the name of the facility. She does not recall that she is in the hospital. She is unsure what day she came here. She does not recall having an infection in her leg, but thinks its just arthritis. Assessment/Plan: Recurrent left knee periprosthetic joint infection with underlying chronic infection, draining sinus tract -Ortho recs appreciated -Zosyn 3.375 g IV piggyback every 12 hours D # 4. Daptomycin 400 mg IVPB every 48 hours. D # 3 - appreciate ID recommendations - Knee Cx shows pseudomonas (R - ciprofloxacin, imipenem, levofloxacin, meropenem, zosyn) and MRSA, reviewed 08/09 - Await blood culture- neg X 48 hours - Vascular recommendations appreciated Chronic kidney disease stage III Paroxysmal atrial fibrillation, history of sick sinus syndrome status post permanent pacemaker Parkinson's disease Hypertension Dyslipidemia -Lipitor on hold due to use of daptomycin, Eliquis on hold for possible surgery -Continue with Coreg 25 mg by mouth twice daily, Lasix 40 mg daily, hydralazine 75 mg 3 times daily -Sodium bicarb 650 milligrams twice daily -Follow blood pressures - Cardio note reviewed: hydralazine increased to 75 gm TID, no contraindication to L AKA, eliquis on hold Dementia - patient is A &O to self. She is unable to comprehend why she is hospitalized. She lacks decision making capacity and all complex decicsion shoud be made by next of kin. DIscussed with vascular MEDICATION MANAGER and family will be contacted for consent for AKA. Diabetes mellitus type 2 -Not on any oral medications -Sliding-scale insulin -Follow blood sugars -Check A1c 6.9 Chronic: Anemia Muscle weakness Dysphasia Gout Gastritis Imaging: None new Data Review: Labs still pending. Will review A1C, CBC, and BMP when available. DVT prophylaxis: Heparin in AM while eliquis on hold Anticipated discharge date: pending clinical course Anticipated discharge place: pending clinical course This dictation was prepared using [employer] voice recognition software. Though every attempt is made to correct errors during dictation some may still exist. Objective - Vital Signs Vital signs: Vital Signs Temp 97.5 F L 08/10/23 13:46 Pulse 82 08/10/23 13:46 Resp 20 08/10/23 13:46 BP 105/64 08/10/23 13:46 Pulse Ox 97 08/10/23 13:46 FiO2 Intake & Output 08/09/23 08/10/23 08/10/23 18:59 06:59 18:59 Intake Total 1051 Output Total 1050 Balance 1 Intake: IV 1051 Output: Urine 950 Estimated Blood Loss 100 Other: Voiding Method Diaper External Catheter External Catheter External Catheter # Voids 1 # Bowel Movements 1 - Labs CBC & Chem 7: 08/10/23 06:44 08/10/23 06:44 Labs: Abnormal Lab Results - Last 24 Hours (Table) 08/09/23 08/09/23 08/10/23 Range/Units 18:04 20:33 05:59 WBC (4.50-10.00) X 10*3/uL RBC (4.10-5.20) X 10*6/uL Hgb (12.0-15.0) g/dL Hct (37.2-46.3) % MCV (80.0-97.0) FL MCHC (32.0-37.0) g/dL RDW (11.5-14.5) % Immature Gran # (0.00-0.04) X 10*3/uL Neutrophils # (1.80-7.70) X 10*3/uL BUN (9.0-27.0) mg/dL Creatinine (0.6-1.5) mg/dL Est GFR (CKD-EPI) (>=60) Glucose (70-110) mg/dL POC Glucose (mg/dL) 176 H 177 H 146 H (70-110) mg/dL Calcium (8.7-10.3) mg/dL 08/10/23 08/10/23 08/10/23 Range/Units 06:44 06:44 11:27 WBC 13.42 H (4.50-10.00) X 10*3/uL RBC 2.54 L (4.10-5.20) X 10*6/uL Hgb 7.5 L (12.0-15.0) g/dL Hct 25.5 L (37.2-46.3) % MCV 100.4 H (80.0-97.0) FL MCHC 29.4 L (32.0-37.0) g/dL RDW 16.7 H (11.5-14.5) % Immature Gran # 0.09 H (0.00-0.04) X 10*3/uL Neutrophils # 10.59 H (1.80-7.70) X 10*3/uL BUN 35.2 H (9.0-27.0) mg/dL Creatinine 2.8 H (0.6-1.5) mg/dL Est GFR (CKD-EPI) 17 L (>=60) Glucose 133 H (70-110) mg/dL POC Glucose (mg/dL) 183 H (70-110) mg/dL Calcium 8.3 L (8.7-10.3) mg/dL Microbiology - Last 24 Hours (Table) 08/07/23 03:23 Blood Culture - Preliminary Blood 08/07/23 12:12 Blood Culture - Preliminary Blood
[2023-08-10 16:43] LABS: Glucose,Whole Blood 150 mg/dL (70-110)
[2023-08-10] MEDS: LACTATED RINGERS 1,000 ML IV SCH (17:25)
[2023-08-10 20:39] LABS: Glucose,Whole Blood 188 mg/dL (70-110)
[2023-08-10] MEDS: clonazePAM 0.5 MG TAB PO SCH (21:30)
[2023-08-11] MEDS: CEFEPIME 1 GM in SODIUM CHLORIDE 0.9% 50 ML IVPB SCH ×3 (02:11→15:04)
[2023-08-11] MEDS: NYSTATIN 100,000 UNIT/GM POWD 15 GM TOPICAL SCH ×4 (02:11→21:20)
[2023-08-11] MEDS: MORPHINE SULFATE 2 MG/ML SYRINGE IVP PRN ×2 (04:36→14:37)
[2023-08-11 05:51] LABS: Glucose,Whole Blood 143 mg/dL (70-110)
[2023-08-11] MEDS: INSULIN ASPART (NovoLOG) 100 UNIT/ML VIAL SQ SCH ×4 (06:00→21:20)
[2023-08-11] MEDS: carvediloL 12.5 MG TAB PO SCH ×2 (06:43→17:40)
[2023-08-11] MEDS: FERROUS SULFATE 325 MG TAB PO SCH ×2 (08:56→21:20)
[2023-08-11] MEDS: allopurinoL 300 MG TAB PO SCH (08:56)
[2023-08-11] MEDS: hydrALAZINE HCL 50 MG TAB PO SCH ×3 (08:56→21:19)
[2023-08-11] MEDS: PANTOPRAZOLE 40 MG TABLET PO SCH (08:57)
[2023-08-11] MEDS: SODIUM BICARBONATE TAB 650 MG TAB PO SCH ×2 (08:57→21:20)
[2023-08-11] MEDS: MAGNESIUM OXIDE 400 MG TAB PO SCH (08:57)
[2023-08-11] MEDS: GABAPENTIN 300 MG CAP PO SCH (08:57)
[2023-08-11] MEDS: POTASSIUM CHLORIDE ER 10 MEQ TAB.ER.PRT PO SCH (08:57)
[2023-08-11] MEDS: FUROSEMIDE 40 MG TAB PO SCH (09:00)
[2023-08-11] MEDS: HYDROcodone/APAP 5-325MG 1 EACH TAB PO PRN ×2 (09:00→23:34)
[2023-08-11 10:19] LABS: HCT 27.2 % (37.2-46.3); HGB 8.4 g/dL (12.0-15.0); MCH 30.5 pg (27.0-32.0); MCHC 30.9 g/dL (32.0-37.0); MCV 98.9 FL (80.0-97.0); Mean Platelet Volume 10.8 FL (9.5-12.2); NRBC Per 100 WBC 0 X 10*3/uL (0.00-0.01); Platelet Count 245 X 10*3/uL (140-440); RBC 2.75 X 10*6/uL (4.10-5.20); RDW 17.1 % (11.5-14.5); WBC 12.47 X 10*3/uL (4.50-10.00)
[2023-08-11] MEDS: SERTRALINE 25 MG TAB PO SCH (10:58)
[2023-08-11 11:25] LABS: African American GFR (CKD) 18 (>60 ml/min/1.73 sqM); Anion Gap 8 mmol/L; Blood Urea Nitrogen 36 mg/dL (7-17); Calcium 7.7 mg/dL (8.4-10.2); Carbon Dioxide 23 mmol/L (22-30); Chloride 104 mmol/L (98-107); Glucose 149 mg/dL (74-99); Non-African American GFR(CKD) 15 (>60 ml/min/1.73 sqM); Potassium 4.3 mmol/L (3.5-5.1); Sodium 135 mmol/L (137-145)
[2023-08-11 11:27] LABS: Glucose,Whole Blood 164 mg/dL (70-110)
--- NOTE | 2023-08-11 12:39 | US ---
EXAMINATION TYPE: US arterial LE single level DATE OF EXAM: 08/07/2023 10:57 AM CLINICAL INDICATION: Female, 78 years old with history of DM, nonhealing wound; Left nonhealing knee wound History of: Smoker: No Hypertension: Yes Diabetic: Yes Hyperlipidemia: Yes CAD: Yes Vascular Ulcers: Left Gangrene: No Doppler Waveforms: Right: Monophasic Left: Monophasic Right Brachial Pressure: 173 Left Brachial Pressure: Deferred due to IV Ankle-Brachial Indices: Right: Attempted, pt unable to tolerate BP cuff pressure, unable to obtain Left: Attempted, pt unable to tolerate BP cuff pressure, unable to obtain Toe Brachial Indices: Right: 0.5 Left: 0.4 IMPRESSION: 1. Nondiagnostic ankle-brachial indices. 2. Severe peripheral vascular disease by waveforms
--- NOTE | 2023-08-11 13:02 | P.PN ---
Subjective Progress Note Date: 08/11/23 Status post left idcnj-oee-fgff amputation, postop day #1. Objective - Vital Signs Vital signs: Vital Signs Temp 98.0 F 08/11/23 07:50 Pulse 91 08/11/23 07:50 Resp 19 08/11/23 08:50 BP 141/74 08/11/23 07:50 Pulse Ox 98 08/11/23 07:50 FiO2 Intake & Output 08/10/23 08/11/23 08/11/23 18:59 06:59 18:59 Intake Total 170 310 Output Total 0 800 Balance 170 -490 Intake: Intake, IV Titration 170 Amount Cefepime 1 gm In Sodium 50 Chloride 0.9% 50 ml @ 12. 5 mls/hr IVPB Q12HR [facility] Rx#:[id number] Lactated Ringers 1,000 ml 120 @ 20 mls/hr IV .Q24H [facility] Rx#:[id number] Blood Product 310 Rc As-1 Unit 310 [id number] Output: Urine 0 800 Straight 600 Other: Voiding Method External Catheter External Catheter External Catheter # Voids 0 1 - Exam Patient is resting comfortably. Dressing is intact. Pain appears well controlled. - Labs CBC & Chem 7: 08/11/23 06:25 08/11/23 10:44 Labs: Abnormal Lab Results - Last 24 Hours (Table) 08/09/23 08/10/23 08/10/23 Range/Units 13:21 16:42 20:38 WBC (4.50-10.00) X 10*3/uL RBC (4.10-5.20) X 10*6/uL Hgb (12.0-15.0) g/dL Hct (37.2-46.3) % MCV (80.0-97.0) FL MCHC (32.0-37.0) g/dL RDW (11.5-14.5) % Sodium (137-145) mmol/L BUN (7-17) mg/dL Creatinine (0.52-1.04) mg/dL Glucose (74-99) mg/dL POC Glucose (mg/dL) 150 H 188 H (70-110) mg/dL Calcium (8.4-10.2) mg/dL Crossmatch See Detail 08/11/23 08/11/23 08/11/23 Range/Units 05:51 06:25 10:44 WBC 12.47 H (4.50-10.00) X 10*3/uL RBC 2.75 L (4.10-5.20) X 10*6/uL Hgb 8.4 L (12.0-15.0) g/dL Hct 27.2 L (37.2-46.3) % MCV 98.9 H (80.0-97.0) FL MCHC 30.9 L (32.0-37.0) g/dL RDW 17.1 H (11.5-14.5) % Sodium 135 L (137-145) mmol/L BUN 36 H (7-17) mg/dL Creatinine 2.82 H (0.52-1.04) mg/dL Glucose 149 H (74-99) mg/dL POC Glucose (mg/dL) 143 H (70-110) mg/dL Calcium 7.7 L (8.4-10.2) mg/dL Crossmatch 08/11/23 Range/Units 11:24 WBC (4.50-10.00) X 10*3/uL RBC (4.10-5.20) X 10*6/uL Hgb (12.0-15.0) g/dL Hct (37.2-46.3) % MCV (80.0-97.0) FL MCHC (32.0-37.0) g/dL RDW (11.5-14.5) % Sodium (137-145) mmol/L BUN (7-17) mg/dL Creatinine (0.52-1.04) mg/dL Glucose (74-99) mg/dL POC Glucose (mg/dL) 164 H (70-110) mg/dL Calcium (8.4-10.2) mg/dL Crossmatch Microbiology - Last 24 Hours (Table) 08/07/23 12:12 Blood Culture - Preliminary Blood 08/07/23 03:23 Blood Culture - Preliminary Blood Assessment and Plan Assessment: Postop day #1 status post left [id number]-ylvb amputation. Plan: Continue supportive care. Will take dressings down on August 13. Time with Patient: Less than 30
--- NOTE | 2023-08-11 15:46 | P.PN ---
Subjective Progress Note Date: 08/11/23 (delayed charting seen at 10am ) Patient is an 78-year-old female with diabetes mellitus type 2, paroxysmal atrial fibrillation, Parkinson's, seizure disorder, sick sinus syndrome status post pacemaker, and chronic kidney disease stage III as well as other comorbid conditions who presented to the ER at the direction of Dr. Jones. On arrival to the ER she was hypertensive with a blood pressure of 198/86. Laboratory analysis was remarkable for white blood cell count 10.7, BUN 44, creatinine 2.64. She is admitted for acute on chronic knee infection. She was started on vancomycin and Zosyn. She was seen by vascular surgery. She underwent AKA on 08/09/23. She was seen by ID and her antbiotic were optimized to cefepime and dapto. Patient has a remote history of a left total knee replacement done an outside hospital. She ultimately developed a periprosthetic joint infection which required several attempts at infection control with placement of a static antibiotic spacer. After her last surgery she was informed by family that she would likely need an above knee amputation for infection recurred. Recently the patient developed a draining sinus over the anterior aspect of the knee will stay on her chcf when she therefore was referred to Dr. Jones. He recommended admitting the patient for possible AKA prior to her becoming systemically ill from the underlying infection. Patient seen and examined at bedside. She is having some postoperative pain but states that it is doing well and is controlled with pain medications. No other complaints currently. Vital signs reviewed General: nontoxic, no distress, appears at stated age Cardiovascular: S1S2 reg, no murmur, positive posterior tibial pulse bilateral, Lungs: Decreased bs bilateral, no rhonchi, no rales , no accessory muscle use Abdominal: soft, nontender to palpation, no guarding, no appreciable organomega ly Ext: no gross muscle atrophy, no edema b/l lower extremities, no contractures Neuro: CN II-XI grossly intact, no focal neuro deficits Urine: Quarter-sized open area on the left knee with purulent drainage, no surrounding warmth or erythema. 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, draining sinus tract -Vascular surgery note reviewed: Continue with supportive care, will take dressings down on Monday 08/13 -Await further infectious disease recommendations -cefepime 2 g IV every 12 hours Day #4, daptomycin 400 mg IV every 48 hours day #5 - Await knee culture- current gram neg - Await blood culture negative Chronic kidney disease stage III Paroxysmal atrial fibrillation, history of sick sinus syndrome status post permanent pacemaker Parkinson's disease Hypertension Dyslipidemia -Lipitor on hold due to use of daptomycin -Continue with Coreg 25 mg by mouth twice daily, Lasix 40 mg daily, hydralazine 75 mg 3 times daily -Sodium bicarb 650 milligrams twice daily -Follow blood pressures - Cardio signed off Dementia - safe and supportive environment Diabetes mellitus type 2 -Not on any oral medications -Sliding-scale insulin -Follow blood sugars -A1c 6.9 Urinary retention -Insert Akhtar catheter Chronic: Anemia Muscle weakness Dysphasia Gout Gastritis Imaging: None new Data Review: Labs reviewed from today include CBC and basic metabolic profile which are remarkable for white blood cell count 12.47, hemoglobin 8.4, sodium 135, BUN 36, creatinine 2.82. DVT prophylaxis: Heparin in AM while eliquis on hold Anticipated discharge date: pending clinical course Anticipated discharge place: pending clinical course This dictation was prepared using [employer] voice recognition software. Though every attempt is made to correct errors during dictation some may still exist. Objective - Vital Signs Vital signs: Vital Signs Temp 98.0 F 08/11/23 07:50 Pulse 82 08/11/23 13:33 Resp 18 08/11/23 13:33 BP 144/68 08/11/23 13:33 Pulse Ox 97 08/11/23 13:33 FiO2 Intake & Output 08/10/23 08/11/23 08/11/23 18:59 06:59 18:59 Intake Total 170 310 Output Total 0 800 Balance 170 -490 Intake: Intake, IV Titration 170 Amount Cefepime 1 gm In Sodium 50 Chloride 0.9% 50 ml @ 12. 5 mls/hr IVPB Q12HR [facility] Rx#:[id number] Lactated Ringers 1,000 ml 120 @ 20 mls/hr IV .Q24H [facility] Rx#:[id number] Blood Product 310 Rc As-1 Unit 310 [id number] Output: Urine 0 800 Straight 600 Other: Voiding Method External Catheter External Catheter External Catheter # Voids 0 1 - Labs CBC & Chem 7: 08/11/23 06:25 08/11/23 10:44 Labs: Abnormal Lab Results - Last 24 Hours (Table) 08/09/23 08/10/23 08/10/23 Range/Units 13:21 16:42 20:38 WBC (4.50-10.00) X 10*3/uL RBC (4.10-5.20) X 10*6/uL Hgb (12.0-15.0) g/dL Hct (37.2-46.3) % MCV (80.0-97.0) FL MCHC (32.0-37.0) g/dL RDW (11.5-14.5) % Sodium (137-145) mmol/L BUN (7-17) mg/dL Creatinine (0.52-1.04) mg/dL Glucose (74-99) mg/dL POC Glucose (mg/dL) 150 H 188 H (70-110) mg/dL Calcium (8.4-10.2) mg/dL Crossmatch See Detail 08/11/23 08/11/23 08/11/23 Range/Units 05:51 06:25 10:44 WBC 12.47 H (4.50-10.00) X 10*3/uL RBC 2.75 L (4.10-5.20) X 10*6/uL Hgb 8.4 L (12.0-15.0) g/dL Hct 27.2 L (37.2-46.3) % MCV 98.9 H (80.0-97.0) FL MCHC 30.9 L (32.0-37.0) g/dL RDW 17.1 H (11.5-14.5) % Sodium 135 L (137-145) mmol/L BUN 36 H (7-17) mg/dL Creatinine 2.82 H (0.52-1.04) mg/dL Glucose 149 H (74-99) mg/dL POC Glucose (mg/dL) 143 H (70-110) mg/dL Calcium 7.7 L (8.4-10.2) mg/dL Crossmatch 08/11/23 Range/Units 11:24 WBC (4.50-10.00) X 10*3/uL RBC (4.10-5.20) X 10*6/uL Hgb (12.0-15.0) g/dL Hct (37.2-46.3) % MCV (80.0-97.0) FL MCHC (32.0-37.0) g/dL RDW (11.5-14.5) % Sodium (137-145) mmol/L BUN (7-17) mg/dL Creatinine (0.52-1.04) mg/dL Glucose (74-99) mg/dL POC Glucose (mg/dL) 164 H (70-110) mg/dL Calcium (8.4-10.2) mg/dL Crossmatch Microbiology - Last 24 Hours (Table) 08/07/23 12:12 Blood Culture - Preliminary Blood 08/07/23 03:23 Blood Culture - Preliminary Blood
[2023-08-11 16:31] LABS: Glucose,Whole Blood 174 mg/dL (70-110)
[2023-08-11] MEDS: LACTATED RINGERS 1,000 ML IV SCH (17:40)
[2023-08-11 20:42] LABS: Glucose,Whole Blood 162 mg/dL (70-110)
[2023-08-11] MEDS: APIXABAN 2.5 MG TABLET PO SCH (21:20)
[2023-08-11] MEDS: clonazePAM 0.5 MG TAB PO SCH (21:20)
[2023-08-12] MEDS: CEFEPIME 1 GM in SODIUM CHLORIDE 0.9% 50 ML IVPB SCH ×2 (01:43→16:00)
[2023-08-12 06:05] LABS: Glucose,Whole Blood 150 mg/dL (70-110)
[2023-08-12] MEDS: INSULIN ASPART (NovoLOG) 100 UNIT/ML VIAL SQ SCH ×4 (07:04→21:10)
[2023-08-12 07:20] LABS: Anisocytosis Slight; HCT 27.3 % (34.0-46.0); HGB 8.5 gm/dL (11.4-16.0); Hypochromasia Marked; MCH 30.8 pg (25.0-35.0); MCHC 31.1 g/dL (31.0-37.0); Macrocytosis Slight; Mean Platelet Volume 8.2; Platelet Count 220 k/uL (150-450); Poikilocytosis Slight; RBC 2.75 m/uL (3.80-5.40); RDW 17.1 % (11.5-15.5); WBC 12.1 k/uL (3.8-10.6)
[2023-08-12 07:32] LABS: African American GFR (CKD) 16 (>60 ml/min/1.73 sqM); Anion Gap 11 mmol/L; Blood Urea Nitrogen 38 mg/dL (7-17); Calcium 7.8 mg/dL (8.4-10.2); Carbon Dioxide 22 mmol/L (22-30); Chloride 105 mmol/L (98-107); Glucose 125 mg/dL (74-99); Non-African American GFR(CKD) 14 (>60 ml/min/1.73 sqM); Potassium 4.6 mmol/L (3.5-5.1); Sodium 138 mmol/L (137-145)
[2023-08-12] MEDS: carvediloL 12.5 MG TAB PO SCH ×2 (09:52→17:41)
[2023-08-12] MEDS: HYDROcodone/APAP 5-325MG 1 EACH TAB PO PRN (09:54)
[2023-08-12] MEDS: GABAPENTIN 300 MG CAP PO SCH (09:55)
[2023-08-12] MEDS: hydrALAZINE HCL 50 MG TAB PO SCH ×3 (09:55→21:12)
[2023-08-12] MEDS: SERTRALINE 25 MG TAB PO SCH (09:55)
[2023-08-12] MEDS: MAGNESIUM OXIDE 400 MG TAB PO SCH (09:55)
[2023-08-12] MEDS: APIXABAN 2.5 MG TABLET PO SCH ×2 (09:55→21:12)
[2023-08-12] MEDS: SODIUM BICARBONATE TAB 650 MG TAB PO SCH ×2 (09:55→21:11)
[2023-08-12] MEDS: FERROUS SULFATE 325 MG TAB PO SCH ×2 (09:56→21:11)
[2023-08-12] MEDS: NYSTATIN 100,000 UNIT/GM POWD 15 GM TOPICAL SCH ×3 (09:56→21:12)
[2023-08-12] MEDS: allopurinoL 300 MG TAB PO SCH (09:56)
[2023-08-12] MEDS: POTASSIUM CHLORIDE ER 10 MEQ TAB.ER.PRT PO SCH (09:56)
[2023-08-12] MEDS: PANTOPRAZOLE 40 MG TABLET PO SCH (09:56)
[2023-08-12 11:04] LABS: Glucose,Whole Blood 181 mg/dL (70-110)
--- NOTE | 2023-08-12 12:03 | P.NPCON ---
History of Present Illness - Reason for Consult acute renal failure, chronic renal failure - History of Present Illness Reason for consultation: Acute kidney injury on chronic kidney disease History of present illness: Patient is a 78-year-old female seen in renal consultation for acute kidney injury on chronic kidney disease. Patient has chronic kidney disease stage IV with baseline creatinine in the range of 2.3-2.7 secondary to diabetic kidney disease and cardiorenal syndrome. Patient has history of diastolic CHF. She was admitted at this facility on 08/06/2023 due to left knee wound. She und erwent left qtdnq-[id number] amputation on 08/09/2023. She is currently resting in bed. Has a Akhtar catheter for urinary retention which was placed 08/11/2023. Nonoliguric. Oral intake is good per nurse. Denies chest pain or shortness of breath. No vomiting or diarrhea. She is on room air. Patient has been receiving oral Lasix which was discontinued yesterday. Blood pressure stable. Vital signs are stable. General: No acute distress. HEENT: Head exam is unremarkable. On nasal cannula. LUNGS: No audible rhonchi or wheezes. HEART: Rate and Rhythm are regular. ABDOMEN: Nontender. EXTREMITITES: Trace edema. Left lqlke-joz-zoxh habitation noted. Past Medical History Past Medical History: Atrial Fibrillation, Chest Pain / Angina, Dementia, Diabe za Mellitus, GERD/Reflux, Hyperlipidemia, Hypertension, Musculoskeletal Disorder, Neurologic Disorder, Pneumonia, Renal Disease, Seizure Disorder, Vascular Disorder Additional Past Medical History / Comment(s): IDDM type II, paroxysmal atrial fibrilation, parkinsons, epilepsy, muscle weakness, anemia, hyperkalemia, sick sinus syndrome with pacemaker, PVD, CKD stage 3, gastritis, dysphagia, gout History of Any Multi-Drug Resistant Organisms: None Reported Past Surgical History: Pacemaker Past Anesthesia/Blood Transfusion Reactions: No Reported Reaction Type of Cardiac Device: Permanent Pacemaker Device Placement Date:: unknown Past Psychological History: Depression Additional Psychological History / Comment(s): Pt resides at [facility]. She is a jared lift to wheelchair. She is incontinent. She can feed herself if her meal is set up. She understands Norwegian. She speaks with a thick accent. Smoking Status: Never smoker Past Alcohol Use History: None Reported Past Drug Use History: None Reported - Past Family History Father Family Medical History: Unable to Obtain Mother Family Medical History: Unable to Obtain Medications and Allergies Home Medications Medication Instructions Recorded Confirmed Type Atorvastatin [Lipitor] 40 mg PO HS@2100 12/29/21 08/06/23 History Ferrous Sulfate [Iron (65 MG 325 mg PO BID 12/29/21 08/06/23 History Elemental)] Omeprazole 20 mg PO DAILY 12/29/21 08/06/23 History Lactulose [Cephulac] 20 gm PO DAILY PRN ml 01/05/22 08/06/23 Rx Calcium Acetate [PhosLo] 667 mg PO DAILY 01/19/23 08/06/23 History Sodium Chloride [Saline Mist] 1 spray EA NOSTRIL Q2H PRN 01/19/23 08/06/23 History allopurinoL [Zyloprim] 300 mg PO DAILY 01/19/23 08/06/23 History bisacodyL [Dulcolax] 10 mg RECTAL DAILY PRN 01/19/23 08/06/23 History calcitrioL [Calcitriol] 0.25 mcg PO MOTUWETHSA 01/19/23 08/06/23 History carvediloL [Coreg] 25 mg PO BID 01/19/23 08/06/23 History Acetaminophen Tab [Tylenol] 500 mg PO Q6HR PRN tab 01/23/23 08/06/23 Rx Ipratropium-Albuterol Nebulize 3 ml INHALATION RT-BID PRN 05/04/23 08/06/23 History [Duoneb 0.5 mg-3 mg/3 ml Soln] Magnesium Oxide [Mag-Ox] 400 mg PO DAILY 05/04/23 08/06/23 History Ondansetron [Zofran] 4 mg PO Q6H PRN 05/04/23 08/06/23 History Apixaban [Eliquis] 2.5 mg PO BID tab 05/14/23 08/06/23 Rx Sodium Bicarbonate Tab 650 mg PO BID tab 05/14/23 08/06/23 Rx clonazePAM [KlonoPIN] 0.5 mg PO HS #3 tab 05/14/23 08/06/23 Rx Darbepoetin Peng [Aranesp] 60 mcg SQ MOFR 08/06/23 08/06/23 History Ergocalciferol (Vitamin D2) 1,250 mcg PO FR 08/06/23 08/06/23 History [Drisdol (50,000 Iu)] Furosemide [Lasix] 40 mg PO DAILY 08/06/23 08/06/23 History Gabapentin [Neurontin] 300 mg PO DAILY 08/06/23 08/06/23 History HYDROcodone/APAP 5-325MG [[place] 1 tab PO TID 08/06/23 08/06/23 History 5-325] Potassium Chloride ER [K-Dur 10] 10 meq PO DAILY 08/06/23 08/06/23 History Sertraline [Zoloft] 25 mg PO DAILY 08/06/23 08/06/23 History hydrALAZINE HCL [Apresoline] 25 mg PO BID 08/06/23 08/06/23 History Allergies Allergy/AdvReac Type Severity Reaction Status Date / Time codeine Allergy Unknown Verified 08/06/23 20:56 hydromorphone [From Dilaudid] Allergy Unknown Verified 08/06/23 20:56 acetaminophen AdvReac see comment Verified 08/06/23 20:56 Physical Exam Vitals: Vital Signs Temp Pulse Resp BP Pulse Ox 08/12/23 07:12 97.5 F L 85 16 113/66 97 08/12/23 01:02 98.2 F 80 18 105/57 96 08/11/23 20:18 98.4 F 88 18 118/80 100 08/11/23 13:33 82 18 144/68 97 Intake and Output 08/11/23 08/12/23 08/12/23 22:59 06:59 14:59 Output Total 600 200 Balance -600 -200 Output: Urine 600 200 Other: Voiding Method Indwelling Catheter # Bowel Movements 1 1 Results - Lab Results Most recent lab results Calcium 7.8 mg/dL (8.4-10.2) L 08/12/23 06:36 Magnesium 1.8 mg/dL (1.5-2.4) 08/10/23 06:44 08/12/23 06:36 08/12/23 06:36 Assessment and Plan Plan: Assessment: 1. Acute kidney injury secondary to vasomotor nephropathy from diuresis. Creatinine 3.06 today. 2. Left knee infected wound status post ccinr-sie-vckc amputation 08/09/2023. 3. Chronic kidney disease stage IV with baseline creatinine 2.3-2.7 secondary to diabetic kidney disease and cardiorenal syndrome. 4. Chronic diastolic CHF. 5. Anemia of chronic kidney disease. Rule out iron deficiency. 6. Chronic kidney disease mineral bone disease maintained on calcitriol. 7. Hypertension with chronic kidney disease. Controlled. 8. Diabetes mellitus. 9. Urinary retention. Akhtar catheter placed 08/11/2023. Plan: Continue to hold Lasix for now. Encourage oral intake. Check iron studies. Hold hydralazine for systolic blood pressure less than 120. Stop potassium supplementation. Avoid nephrotoxins. Add Flomax. Thank you for the consultation. I will continue to follow the patient with you during her hospital stay.
--- NOTE | 2023-08-12 13:09 | P.PN ---
Subjective Progress Note Date: 08/12/23 (rick charting seen at 0910) Patient is an 78-year-old female with diabetes mellitus type 2, paroxysmal atrial fibrillation, Parkinson's, seizure disorder, sick sinus syndrome status post pacemaker, and chronic kidney disease stage III as well as other comorbid conditions who presented to the ER at the direction of Dr. Jones. Patient has a remote history of a left total knee replacement done an outside hospital. She ultimately developed a periprosthetic joint infection which required several att empts at infection control with placement of a static antibiotic spacer. After her last surgery she was informed by family that she would likely need an above knee amputation for infection recurred. Recently the patient developed a draining sinus over the anterior aspect of the knee will stay on her custodial when she therefore was referred to Dr. Jones. He recommended admitting the patient for possible AKA prior to her becoming systemically ill from the underlying infection. On arrival to the ER she was hypertensive with a blood pressure of 198/86. Laboratory analysis was remarkable for white blood cell count 10.7, BUN 44, creatinine 2.64. She is admitted for acute on chronic knee infection. She was started on vancomycin and Zosyn. She was seen by vascular surgery. She underwent AKA on 08/09/23. She was seen by ID and her antibiotic were optimized to cefepime and dapto. She had slightly worsening renal function and her lasix and potassium were stopped and nepohrology was consulted. Patient seen and examined at bedside. She does complain of some pain today in her leg. She does not want any new medications for her pain. She denies any nausea, vomiting, or constipation. 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 Acute blood loss anemia, on chronic anemia, anticipated outcome of surgery -Vascular surgery note reviewed: Continue with supportive care, will take dressings down on Monday 08/13 -Await further infectious disease recommendations -cefepime 2 g IV every 12 hours Day #5, daptomycin 400 mg IV every 48 hours day #6 - blood culture negative - s/p 1unit prbc, no indication for transfusion at this time, follow CBC Acute kidney injury on chronic kidney disease stage IV Paroxysmal atrial fibrillation, history of sick sinus syndrome status post permanent pacemaker Parkinson's disease Hypertension Dyslipidemia -Lipitor on hold due to use of daptomycin -Continue with Coreg 25 mg by mouth twice daily, Lasix 40 mg daily, hydralazine 75 mg 3 times daily -Sodium bicarb 650 milligrams twice daily -Follow blood pressures - Cardio signed off - Discontinue Lasix - Consult nephrology: Consultation reviewed. Continue to hold Lasix, encourage oral intake, check iron studies, hold hydralazine for systolic blood pressure less than 120 Dementia - safe and supportive environment Diabetes mellitus type 2 -Not on any oral medications -Sliding-scale insulin -Follow blood sugars -A1c 6.9 Urinary retention - has rosales in place, placed 08/11 Chronic: Anemia Muscle weakness Dysphasia Gout Gastritis Imaging: None new Data Review: Labs reviewed from today include CBC and basic metabolic profile which are remarkable for white blood cell count 12.1, hemoglobin 8.5, BUN 38, creatinine 3.06, blood sugar 181 DVT prophylaxis: Eliquis Anticipated discharge date: pending clinical course Anticipated discharge place: pending clinical course This dictation was prepared using [email or web address] voice recognition software. Though every attempt is made to correct errors during dictation some may still exist. Active Medications Hydrocodone Bitart/Acetaminophen (Hydrocodone/Apap 5-325mg 1 Each Tab) 1 each PO Q4HR PRN PRN Reason: Moderate Pain (Scale 4 to 6) Last Admin: 08/12/23 09:54 Dose: 1 each Albuterol/Ipratropium (Ipratropium-Albuterol 3 Ml Neb) 3 ml INHALATION RT-BID PRN PRN Reason: Wheezing Allopurinol (Allopurinol 300 Mg Tab) 300 mg PO DAILY [facility] Last Admin: 08/12/23 09:56 Dose: 300 mg Apixaban (Apixaban 2.5 Mg Tablet) 2.5 mg PO BID [facility]; Protocol Last Admin: 08/12/23 09:55 Dose: 2.5 mg Calcitriol (Calcitriol 0.25 Mcg Cap) 0.25 mcg PO MOTUWETHSA [facility] Last Admin: 08/11/23 08:56 Dose: 0.25 mcg Carvedilol (Carvedilol 12.5 Mg Tab) 25 mg PO BID-W/MEALS [facility] Last Admin: 08/12/23 09:52 Dose: Not Given Clonazepam (Clonazepam 0.5 Mg Tab) 0.5 mg PO HS [facility] Last Admin: 08/11/23 21:20 Dose: 0.5 mg Dextrose/Water (Dextrose 50% Syringe 50 Ml) 25 ml IVP PER PROTOCOL PRN; Protocol PRN Reason: Hypoglycemia Dextrose/Water (Dextrose 50% Syringe 50 Ml) 50 ml IVP PER PROTOCOL PRN; Protocol PRN Reason: Hypoglycemia Ferrous Sulfate (Ferrous Sulfate 325 Mg Tab) 325 mg PO BID [facility] Last Admin: 08/12/23 09:56 Dose: 325 mg Gabapentin (Gabapentin 300 Mg Cap) 300 mg PO DAILY [facility] Last Admin: 08/12/23 09:55 Dose: 300 mg Hydralazine HCl (Hydralazine Hcl 50 Mg Tab) 75 mg PO TID [facility] Last Admin: 08/12/23 09:55 Dose: 75 mg Daptomycin 400 mg/ Sodium (Chloride) 50 mls @ 100 mls/hr IVPB Q48H [facility]; Protocol Last Admin: 08/11/23 12:41 Dose: 100 mls/hr Lactated Ringer's (Lactated Ringers) 1,000 mls @ 20 mls/hr IV .Q24H [facility] Last Admin: 08/11/23 17:40 Dose: Not Given Cefepime HCl 1 gm/ Sodium (Chloride) 50 mls @ 12.5 mls/hr IVPB Q12H [facility] Last Admin: 08/12/23 01:43 Dose: 12.5 mls/hr Insulin Aspart (Insulin Aspart (Novolog) 100 Unit/Ml Vial) 0 unit SQ ACHS [facility]; Protocol Last Admin: 08/12/23 12:40 Dose: 1 unit Magnesium Oxide (Magnesium Oxide 400 Mg Tab) 400 mg PO DAILY [facility] Last Admin: 08/12/23 09:55 Dose: 400 mg Morphine Sulfate (Morphine Sulfate 2 Mg/Ml Syringe) 2 mg IVP Q4HR PRN PRN Reason: Severe Pain (Scale 7 to 10) Last Admin: 08/11/23 14:37 Dose: 2 mg Nystatin (Nystatin 100,000 Unit/Gm Powd 15 Gm) 1 applic TOPICAL TID [facility]; Protocol Last Admin: 08/12/23 09:56 Dose: 1 applic Pantoprazole Sodium (Pantoprazole 40 Mg Tablet) 40 mg PO DAILY [facility] Last Admin: 08/12/23 09:56 Dose: 40 mg Sertraline HCl (Sertraline 25 Mg Tab) 25 mg PO DAILY [facility] Last Admin: 08/12/23 09:55 Dose: 25 mg Sodium Bicarbonate (Sodium Bicarbonate Tab 650 Mg Tab) 650 mg PO BID [facility] Last Admin: 08/12/23 09:55 Dose: 650 mg Tamsulosin HCl (Tamsulosin 0.4 Mg Cap.Er.24h) 0.4 mg PO PC-[id number] [facility] Objective - Vital Signs Vital signs: Vital Signs Temp 97.5 F L 08/12/23 07:12 Pulse 85 08/12/23 07:12 Resp 16 08/12/23 07:12 BP 113/66 08/12/23 07:12 Pulse Ox 97 08/12/23 07:12 FiO2 Intake & Output 08/11/23 08/12/23 08/12/23 18:59 06:59 18:59 Output Total 600 200 Balance -600 -200 Output: Urine 600 200 Other: Voiding Method External Catheter Indwelling Catheter Indwelling Catheter # Bowel Movements 1 1 - Labs CBC & Chem 7: 08/12/23 06:36 08/12/23 06:36 Labs: Abnormal Lab Results - Last 24 Hours (Table) 08/11/23 08/11/23 08/12/23 Range/Units 16:30 20:41 06:04 WBC (3.8-10.6) k/uL RBC (3.80-5.40) m/uL Hgb (11.4-16.0) gm/dL Hct (34.0-46.0) % RDW (11.5-15.5) % BUN (7-17) mg/dL Creatinine (0.52-1.04) mg/dL Glucose (74-99) mg/dL POC Glucose (mg/dL) 174 H 162 H 150 H (70-110) mg/dL Calcium (8.4-10.2) mg/dL 08/12/23 08/12/23 08/12/23 Range/Units 06:36 06:36 11:02 WBC 12.1 H (3.8-10.6) k/uL RBC 2.75 L (3.80-5.40) m/uL Hgb 8.5 L (11.4-16.0) gm/dL Hct 27.3 L (34.0-46.0) % RDW 17.1 H (11.5-15.5) % BUN 38 H (7-17) mg/dL Creatinine 3.06 H (0.52-1.04) mg/dL Glucose 125 H (74-99) mg/dL POC Glucose (mg/dL) 181 H (70-110) mg/dL Calcium 7.8 L (8.4-10.2) mg/dL Microbiology - Last 24 Hours (Table) 08/07/23 03:23 Blood Culture - Final Blood
[2023-08-12 16:11] LABS: Glucose,Whole Blood 167 mg/dL (70-110)
[2023-08-12] MEDS: LACTATED RINGERS 1,000 ML IV SCH (17:59)
[2023-08-12 19:18] LABS: Glucose,Whole Blood 154 mg/dL (70-110)
[2023-08-12] MEDS: clonazePAM 0.5 MG TAB PO SCH (21:11)
[2023-08-12 23:42] LABS: % Iron Saturation 11.8 (12.00-45.00)
[2023-08-13] MEDS: CEFEPIME 1 GM in SODIUM CHLORIDE 0.9% 50 ML IVPB SCH (01:45)
[2023-08-13 06:09] LABS: Glucose,Whole Blood 166 mg/dL (70-110)
[2023-08-13] MEDS: INSULIN ASPART (NovoLOG) 100 UNIT/ML VIAL SQ SCH ×4 (06:55→23:56)
[2023-08-13 09:19] LABS: BUN/Creat Ratio 10.86 Ratio (12.00-20.00); Calcium 8.1 mg/dL (8.7-10.3); Carbon Dioxide 22.9 mmol/L (21.6-31.8); Chloride 106 mmol/L (96-109); Glucose 136 mg/dL (70-110); Potassium 4.8 mmol/L (3.5-5.5); Sodium 139 mmol/L (135-145)
[2023-08-13] MEDS: MORPHINE SULFATE 2 MG/ML SYRINGE IVP PRN (09:19)
[2023-08-13] MEDS: HYDROcodone/APAP 5-325MG 1 EACH TAB PO PRN ×2 (10:13→22:51)
[2023-08-13] MEDS: allopurinoL 300 MG TAB PO SCH (10:14)
[2023-08-13] MEDS: hydrALAZINE HCL 50 MG TAB PO SCH ×3 (10:14→22:50)
[2023-08-13] MEDS: TAMSULOSIN 0.4 MG CAP.ER.24H PO SCH (10:14)
[2023-08-13] MEDS: GABAPENTIN 300 MG CAP PO SCH (10:15)
[2023-08-13] MEDS: FERROUS SULFATE 325 MG TAB PO SCH (10:15)
[2023-08-13] MEDS: APIXABAN 2.5 MG TABLET PO SCH ×2 (10:15→22:51)
[2023-08-13] MEDS: SODIUM BICARBONATE TAB 650 MG TAB PO SCH ×2 (10:15→22:51)
[2023-08-13] MEDS: SERTRALINE 25 MG TAB PO SCH (10:16)
[2023-08-13] MEDS: carvediloL 12.5 MG TAB PO SCH ×2 (10:17→17:43)
[2023-08-13] MEDS: NYSTATIN 100,000 UNIT/GM POWD 15 GM TOPICAL SCH ×3 (10:17→23:55)
[2023-08-13] MEDS: PANTOPRAZOLE 40 MG TABLET PO SCH (10:19)
[2023-08-13] MEDS: MAGNESIUM OXIDE 400 MG TAB PO SCH (10:19)
--- NOTE | 2023-08-13 10:53 | P.PN ---
Subjective Patient is seen in follow-up for acute kidney injury on chronic kidney disease. Creatinine 3.5 today. Hemodynamically stable. Has Akhtar catheter. Nonoliguric. Oral intake fair. Admits to pain at the surgical site. Vital signs are stable. General: No acute distress. HEENT: Head exam is unremarkable. LUNGS: No audible rhonchi and wheezes. HEART: Rate and Rhythm are regular. ABDOMEN: Nontender. EXTREMITITES: Trace edema. AKA noted. Objective - Vital Signs Vital signs: Vital Signs Temp 98.3 F 08/13/23 07:22 Pulse 84 08/13/23 07:22 Resp 17 08/13/23 07:22 BP 119/68 08/13/23 07:22 Pulse Ox 94 L 08/13/23 07:22 FiO2 Intake & Output 08/12/23 08/13/23 08/13/23 18:59 06:59 18:59 Output Total 300 450 Balance -300 -450 Output: Urine 300 450 Other: Voiding Method Indwelling Catheter Indwelling Catheter # Bowel Movements 1 - Labs CBC & Chem 7: 08/12/23 06:36 08/13/23 05:43 Labs: Abnormal Lab Results - Last 24 Hours (Table) 08/12/23 08/12/23 08/12/23 Range/Units 06:36 11:02 16:10 BUN (9.0-27.0) mg/dL Creatinine (0.6-1.5) mg/dL Est GFR (CKD-EPI) (>=60) BUN/Creatinine Ratio (12.00-20.00) Ratio Glucose (70-110) mg/dL POC Glucose (mg/dL) 181 H 167 H (70-110) mg/dL Calcium (8.7-10.3) mg/dL Iron 21 L (50-170) UG/DL TIBC 178 L (228-460) UG/DL % Saturation 11.80 L (12.00-45.00) Transferrin 127.0 L (204.0-354.0) mg/dL Ferritin 330.0 H (10.0-291.0) ng/mL 08/12/23 08/13/23 08/13/23 Range/Units 19:17 05:43 06:08 BUN 38.0 H (9.0-27.0) mg/dL Creatinine 3.5 H (0.6-1.5) mg/dL Est GFR (CKD-EPI) 13 L (>=60) BUN/Creatinine Ratio 10.86 L (12.00-20.00) Ratio Glucose 136 H (70-110) mg/dL POC Glucose (mg/dL) 154 H 166 H (70-110) mg/dL Calcium 8.1 L (8.7-10.3) mg/dL Iron (50-170) UG/DL TIBC (228-460) UG/DL % Saturation (12.00-45.00) Transferrin (204.0-354.0) mg/dL Ferritin (10.0-291.0) ng/mL Microbiology - Last 24 Hours (Table) 08/07/23 12:12 Blood Culture - Final Blood 08/07/23 03:23 Blood Culture - Final Blood Assessment and Plan Plan: Assessment: 1. Acute kidney injury secondary to vasomotor nephropathy from diuresis. Renal function worse. Creatinine 3.5 today. 2. Left knee infected wound status post iriae-tzy-ymji amputation 08/09/2023. 3. Chronic kidney disease stage IV with baseline creatinine 2.3-2.7 secondary to diabetic kidney disease and cardiorenal syndrome. 4. Chronic diastolic CHF. 5. Anemia of chronic kidney disease. Iron deficiency noted. 6. Chronic kidney disease mineral bone disease maintained on calcitriol. 7. Hypertension with chronic kidney disease. Controlled. 8. Diabetes mellitus. 9. Urinary retention. Akhtar catheter placed 08/11/2023. On Flomax. Plan: Continue to hold Lasix for now. Check chest x-ray. Encourage oral intake. Add IV iron. Hold hydralazine for systolic blood pressure less than 120. Avoid nephrotoxins. Check renal ultrasound.
[2023-08-13 11:20] LABS: Glucose,Whole Blood 166 mg/dL (70-110)
[2023-08-13 13:08] VITALS: BMI 33.7
[2023-08-13] MEDS: SODIUM FERRIC GLUCONAT-SUCROSE 125 MG in SODIUM CHLORIDE 0.9% 100 ML IVPB SCH (13:31)
--- NOTE | 2023-08-13 14:24 | US ---
EXAMINATION TYPE: US kidneys/renal and bladder DATE OF EXAM: 08/13/2023 COMPARISON: NONE CLINICAL INDICATION: Female, 78 years old with history of acute kidney injury. The patient is very co nfused and unable to coherently answer questioning EXAM MEASUREMENTS: Right Kidney: 7.6 x 3.2 x 3.7 cm Left Kidney: 7.7 x 3.3 x 4.5 cm Right Kidney: Small in size with cortical thinning Left Kidney: Small in size with cortical thinning No hydronephrosis seen on either side. Bladder: Therapist Rrt notes: The patient has Akhtar and did not want me to image bladder - very confuse d IMPRESSION: 1. Changes of bilateral chronic medical renal disease. No hydronephrosis on either side. 2. The patient refused imaging of the bladder.
--- NOTE | 2023-08-13 14:33 | P.PN ---
Subjective Progress Note Date: 08/13/23 (delayed charting seen at 1115) Patient is an 78-year-old female with diabetes mellitus type 2, paroxysmal atrial fibrillation, Parkinson's, seizure disorder, sick sinus syndrome status post pacemaker, and chronic kidney disease stage III as well as other comorbid conditions who presented to the ER at the direction of Dr. Jones. Patient has a remote history of a left total knee replacement done an outside hospital. She ultimately developed a periprosthetic joint infection which required several att empts at infection control with placement of a static antibiotic spacer. After her last surgery she was informed by family that she would likely need an above knee amputation for infection recurred. Recently the patient developed a draining sinus over the anterior aspect of the knee will stay on her fpc when she therefore was referred to Dr. Jones. He recommended admitting the patient for possible AKA prior to her becoming systemically ill from the underlying infection. On arrival to the ER she was hypertensive with a blood pressure of 198/86. Laboratory analysis was remarkable for white blood cell count 10.7, BUN 44, creatinine 2.64. She is admitted for acute on chronic knee infection. She was started on vancomycin and Zosyn. She was seen by vascular surgery. She underwent AKA on 08/09/23. She was seen by ID and her antibiotic were optimized to cefepime and dapto. She had slightly worsening renal function and her lasix and potassium were stopped and nepohrology was consulted. Patient seen and examined at bedside. She does complain of some pain in her leg. She denies any chest pain, shortness of breath, nausea, vomiting. 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 Patient is optimized for discharge from a vascular standpoint. -Await further infectious disease recommendations -cefepime 2 g IV every 12 hours Day #6, daptomycin 400 mg IV every 48 hours day #6 - blood culture negative - s/p 1unit prbc, no indication for transfusion at this time, follow CBC Acute kidney injury on chronic kidney disease stage IV Paroxysmal atrial fibrillation, history of sick sinus syndrome status post permanent pacemaker Parkinson's disease Hypertension Dyslipidemia -Lipitor on hold due to use of daptomycin -Continue with Coreg 25 mg by mouth twice daily, Lasix 40 mg daily, hydralazine 75 mg 3 times daily -Sodium bicarb 650 milligrams twice daily -Follow blood pressures - Cardio signed off - Continue off Lasix -Case discussed with nephrology. Patient continues to have adequate urine output. Her medications have been reviewed. She has adequate oral intake. Will continue to monitor her renal profile. Will check renal ultrasound. Ex pect renal recovery back to baseline. -Repeat basic metabolic profile in AM. Dementia - safe and supportive environment Diabetes mellitus type 2 -Not on any oral medications -Sliding-scale insulin -Follow blood sugars -A1c 6.9 Urinary retention - has rosales in place, placed 08/11 Chronic: Anemia Muscle weakness Dysphasia Gout Gastritis Imaging: None new Data Review: Labs reviewed from today include basic metabolic profile which was remarkable for BUN 38 and creatinine 3.15. DVT prophylaxis: Eliquis Anticipated discharge date: in 24-[address]: return to [facility] This dictation was prepared using [employer] voice recognition software. Though every attempt is made to correct errors during dictation some may still exist. Active Medications Generic Name Dose Route Start Last Admin Trade Name Martyq PRN Reason Stop Dose Admin Hydrocodone Bitart/Acetaminophen 1 each 08/09/23 15:52 08/13/23 10:13 Hydrocodone/Apap 5-325mg 1 Each Tab PO 1 each Q4HR PRN Administration Moderate Pain (Scale 4 to 6) Albuterol/Ipratropium 3 ml 08/07/23 15:42 Ipratropium-Albuterol 3 Ml Neb INHALATION RT-BID PRN Wheezing Allopurinol 300 mg 08/07/23 09:00 08/13/23 10:14 Allopurinol 300 Mg Tab PO 300 mg DAILY HONG Administration Apixaban 2.5 mg 08/11/23 21:00 08/13/23 10:15 Apixaban 2.5 Mg Tablet PO 2.5 mg BID HONG Administration Protocol Calcitriol 0.25 mcg 08/08/23 09:00 08/13/23 10:16 Calcitriol 0.25 Mcg Cap PO 0.25 mcg MOTUWETHSA HONG Administration Carvedilol 25 mg 08/07/23 07:30 08/13/23 10:17 Carvedilol 12.5 Mg Tab PO Not Given BID-W/MEALS HONG Clonazepam 0.5 mg 08/07/23 21:00 08/12/23 21:11 Clonazepam 0.5 Mg Tab PO 0.5 mg HS HONG Administration Dextrose/Water 25 ml 08/07/23 15:44 Dextrose 50% Syringe 50 Ml IVP PER PROTOCOL PRN Hypoglycemia Protocol Dextrose/Water 50 ml 08/07/23 15:44 Dextrose 50% Syringe 50 Ml IVP PER PROTOCOL PRN Hypoglycemia Protocol Gabapentin 300 mg 08/07/23 09:00 08/13/23 10:15 Gabapentin 300 Mg Cap PO 300 mg DAILY HONG Administration Hydralazine HCl 75 mg 08/08/23 16:00 08/13/23 10:14 Hydralazine Hcl 50 Mg Tab PO 75 mg TID HONG Administration Daptomycin 400 mg/ Sodium 50 mls @ 100 mls/hr 08/07/23 13:00 08/11/23 12:41 Chloride IVPB 100 mls/hr Q48H HONG Administration Protocol Lactated Ringer's 1,000 mls @ 20 mls/hr 08/09/23 16:12 08/12/23 17:59 Lactated Ringers IV Not Given .Q24H HONG Cefepime HCl 1 gm/ Sodium 50 mls @ 12.5 mls/hr 08/14/23 06:00 Chloride IVPB Q24H HONG Ferric Sodium Gluconate 125 mg 110 mls @ 100 mls/hr 08/13/23 12:00 08/13/23 13:31 / Sodium Chloride IVPB 08/16/23 12:01 100 mls/hr DAILY HONG Administration Insulin Aspart 0 unit 08/07/23 17:30 08/13/23 13:31 Insulin Aspart (Novolog) 100 Unit/Ml Vial SQ 1 unit ACHS HONG Administration Protocol Magnesium Oxide 400 mg 08/08/23 09:00 08/13/23 10:19 Magnesium Oxide 400 Mg Tab PO 400 mg DAILY HONG Administration Morphine Sulfate 2 mg 08/09/23 15:50 08/13/23 09:19 Morphine Sulfate 2 Mg/Ml Syringe IVP 2 mg Q4HR PRN Administration Severe Pain (Scale 7 to 10) Nystatin 1 applic 08/08/23 16:30 08/13/23 10:17 Nystatin 100,000 Unit/Gm Powd 15 Gm TOPICAL 1 applic TID HONG Administration Protocol Pantoprazole Sodium 40 mg 08/08/23 09:00 08/13/23 10:19 Pantoprazole 40 Mg Tablet PO 40 mg DAILY HONG Administration Sertraline HCl 25 mg 08/07/23 09:00 08/13/23 10:16 Sertraline 25 Mg Tab PO 25 mg DAILY HONG Administration Sodium Bicarbonate 650 mg 08/07/23 09:00 08/13/23 10:15 Sodium Bicarbonate Tab 650 Mg Tab PO 650 mg BID HONG Administration Tamsulosin HCl 0.4 mg 08/13/23 08:30 08/13/23 10:14 Tamsulosin 0.4 Mg Cap.Er.24h PO 0.4 mg PC-BRKFST HONG Administration Objective - Vital Signs Vital signs: Vital Signs Temp 98.3 F 08/13/23 07:22 Pulse 84 08/13/23 07:22 Resp 17 08/13/23 07:22 BP 119/68 08/13/23 07:22 Pulse Ox 94 L 08/13/23 07:22 FiO2 Intake & Output 08/12/23 08/13/23 08/13/23 18:59 06:59 18:59 Output Total 300 450 Balance -300 -450 Weight 83.7 kg Output: Urine 300 450 Other: Voiding Method Indwelling Catheter Indwelling Catheter Indwelling Catheter # Bowel Movements 1 - Labs CBC & Chem 7: 08/12/23 06:36 08/13/23 05:43 Labs: Abnormal Lab Results - Last 24 Hours (Table) 08/12/23 08/12/23 08/12/23 Range/Units 06:36 16:10 19:17 BUN (9.0-27.0) mg/dL Creatinine (0.6-1.5) mg/dL Est GFR (CKD-EPI) (>=60) BUN/Creatinine Ratio (12.00-20.00) Ratio Glucose (70-110) mg/dL POC Glucose (mg/dL) 167 H 154 H (70-110) mg/dL Calcium (8.7-10.3) mg/dL Iron 21 L (50-170) UG/DL TIBC 178 L (228-460) UG/DL % Saturation 11.80 L (12.00-45.00) Transferrin 127.0 L (204.0-354.0) mg/dL Ferritin 330.0 H (10.0-291.0) ng/mL 08/13/23 08/13/23 08/13/23 Range/Units 05:43 06:08 11:18 BUN 38.0 H (9.0-27.0) mg/dL Creatinine 3.5 H (0.6-1.5) mg/dL Est GFR (CKD-EPI) 13 L (>=60) BUN/Creatinine Ratio 10.86 L (12.00-20.00) Ratio Glucose 136 H (70-110) mg/dL POC Glucose (mg/dL) 166 H 166 H (70-110) mg/dL Calcium 8.1 L (8.7-10.3) mg/dL Iron (50-170) UG/DL TIBC (228-460) UG/DL % Saturation (12.00-45.00) Transferrin (204.0-354.0) mg/dL Ferritin (10.0-291.0) ng/mL Microbiology - Last 24 Hours (Table) 08/07/23 12:12 Blood Culture - Final Blood 08/07/23 03:23 Blood Culture - Final Blood
--- NOTE | 2023-08-13 15:05 | P.PN ---
Subjective Progress Note Date: 08/13/23 Principal diagnosis: Recurrent infection left knee, wound Seen and examined today is postoperative left bmxgk-twz-kgsl amputation. She is postop day #4 left gllpr-xhh-huai amputation. Her pain has been well- controlled. She has a stump crm developer and rigid dressing in place. Patient's having some worsening kidney function, nephrology is following. She's been afebrile. Objective - Vital Signs Vital signs: Vital Signs Temp 98.3 F 08/13/23 07:22 Pulse 84 08/13/23 07:22 Resp 17 08/13/23 07:22 BP 119/68 08/13/23 07:22 Pulse Ox 94 L 08/13/23 07:22 FiO2 Intake & Output 08/12/23 08/13/23 08/13/23 18:59 06:59 18:59 Output Total 300 450 Balance -300 -450 Output: Urine 300 450 Other: Voiding Method Indwelling Catheter Indwelling Catheter # Bowel Movements 1 - Exam General appearance: The patient is alert, oriented, appears in no acute distress. Obese. HET: Head is normocephalic and atraumatic. Pupils are equal and reactive. Neck: Supple. Abdomen: Soft, nondistended. Extremities: Left jvjkv-lbk-rouu amputation stump with stump crm developer and rigid dressing in place. Dressing changed, incision site well approximated with yasir, with minimal serosanguineous drainage. Neurological: Alert and oriented. - Labs CBC & Chem 7: 08/12/23 06:36 08/13/23 05:43 Labs: Abnormal Lab Results - Last 24 Hours (Table) 08/12/23 08/12/23 08/12/23 Range/Units 06:36 11:02 16:10 POC Glucose (mg/dL) 181 H 167 H (70-110) mg/dL Iron 21 L (50-170) UG/DL TIBC 178 L (228-460) UG/DL % Saturation 11.80 L (12.00-45.00) Transferrin 127.0 L (204.0-354.0) mg/dL Ferritin 330.0 H (10.0-291.0) ng/mL 08/12/23 08/13/23 Range/Units 19:17 06:08 POC Glucose (mg/dL) 154 H 166 H (70-110) mg/dL Iron (50-170) UG/DL TIBC (228-460) UG/DL % Saturation (12.00-45.00) Transferrin (204.0-354.0) mg/dL Ferritin (10.0-291.0) ng/mL Microbiology - Last 24 Hours (Table) 08/07/23 12:12 Blood Culture - Final Blood 08/07/23 03:23 Blood Culture - Final Blood Assessment and Plan Assessment: 1. Chronic recurrent left knee periprosthetic infection staus post left nbvbr-cei-hzfx amputation 2. Left knee open wound 3. Coronary artery disease 4. History of atrial fibrillation on Eliquis 5. Diabetes mellitus 6. Epilepsy 7. Parkinson's disorder 8. Hypertension and hyperlipidemia 9. Acute on Chronic kidney disease Plan: 1. Stump crm developer and rigid dressing to left akpjn-bfg-xqdy amputation. 2. Dressing change daily. Clean with Betadine solution, apply Kerlix and then stump crm developer and rigid dressing. Thank you for this consultation, patient is cleared for discharge from vascular surgery. The impression and plan of care has been dictated as directed. Dr. Lee I performed a history and examination of this patient, discussed the same with the dictator. I agree with the dictator's note ,documented as a scribe. Any additional findings or plans will be noted.
[2023-08-13 17:15] LABS: Glucose,Whole Blood 203 mg/dL (70-110)
[2023-08-13] MEDS: LACTATED RINGERS 1,000 ML IV SCH (17:43)
--- NOTE | 2023-08-13 18:43 | XR ---
EXAMINATION TYPE: XR chest 1V DATE OF EXAM: 08/13/2023 COMPARISON: 05/10/2023 HISTORY: 78-year-old female shortness of breath TECHNIQUE: Single frontal view of the chest is obtained. FINDINGS: Heart is enlarged. Left anterior chest wall pacemaker generator with right atrial right ve ntricular leads. There is a small left pleural effusion with adjacent retrocardiac opacity. IMPRESSION: Small left pleural effusion with adjacent atelectasis and/or consolidation. Possible seq uela of mild CHF.
[2023-08-13 20:35] LABS: Glucose,Whole Blood 184 mg/dL (70-110)
[2023-08-13] MEDS: clonazePAM 0.5 MG TAB PO SCH (22:51)
[2023-08-14 05:25] LABS: Glucose,Whole Blood 140 mg/dL (70-110)
[2023-08-14] MEDS ORDERED: CEFEPIME 1 GM in SODIUM CHLORIDE 0.9% 50 ML IVPB SCH (06:00)
[2023-08-14] MEDS: INSULIN ASPART (NovoLOG) 100 UNIT/ML VIAL SQ SCH ×4 (08:11→20:37)
[2023-08-14] MEDS: carvediloL 12.5 MG TAB PO SCH ×2 (08:11→17:28)
[2023-08-14] MEDS: PANTOPRAZOLE 40 MG TABLET PO SCH ×2 (09:23→09:24)
[2023-08-14] MEDS: allopurinoL 300 MG TAB PO SCH (09:23)
[2023-08-14] MEDS: HYDROcodone/APAP 5-325MG 1 EACH TAB PO PRN ×3 (09:23→14:10)
[2023-08-14] MEDS: SODIUM BICARBONATE TAB 650 MG TAB PO SCH ×2 (09:23→22:29)
[2023-08-14] MEDS: hydrALAZINE HCL 50 MG TAB PO SCH ×3 (09:23→22:27)
[2023-08-14] MEDS: SODIUM FERRIC GLUCONAT-SUCROSE 125 MG in SODIUM CHLORIDE 0.9% 100 ML IVPB SCH (09:23)
[2023-08-14] MEDS: GABAPENTIN 300 MG CAP PO SCH (09:24)
[2023-08-14] MEDS: APIXABAN 2.5 MG TABLET PO SCH ×2 (09:24→22:29)
[2023-08-14] MEDS: TAMSULOSIN 0.4 MG CAP.ER.24H PO SCH (09:24)
[2023-08-14] MEDS: NYSTATIN 100,000 UNIT/GM POWD 15 GM TOPICAL SCH ×3 (09:31→22:30)
[2023-08-14] MEDS: SERTRALINE 25 MG TAB PO SCH (09:32)
[2023-08-14] MEDS: MAGNESIUM OXIDE 400 MG TAB PO SCH (09:32)
[2023-08-14 11:22] LABS: BUN/Creat Ratio 10.92 Ratio (12.00-20.00); Blood Urea Nitrogen 40.4 mg/dL (9.0-27.0); Calcium 8.2 mg/dL (8.7-10.3); Carbon Dioxide 22.9 mmol/L (21.6-31.8); Chloride 106 mmol/L (96-109); Glucose 131 mg/dL (70-110); Magnesium 2.1 mg/dL (1.5-2.4); Potassium 4.6 mmol/L (3.5-5.5); Sodium 138 mmol/L (135-145)
[2023-08-14 11:32] LABS: Glucose,Whole Blood 169 mg/dL (70-110)
[2023-08-14] MEDS ORDERED: FUROSEMIDE 10 MG/ML 4 ML VIAL IV STA (11:47)
--- NOTE | 2023-08-14 11:48 | P.PN ---
Subjective Patient is seen in follow-up for acute kidney injury on chronic kidney disease. Creatinine slightly worse at 3.7 today. Hemodynamically stable. Has Akhtar catheter. Nonoliguric. Oral intake fair. Vital signs are stable. General: No acute distress. HEENT: Head exam is unremarkable. LUNGS: No audible rhonchi and wheezes. HEART: Rate and Rhythm are regular. ABDOMEN: Nontender. EXTREMITITES: 2+ edema. AKA noted. Objective - Vital Signs Vital signs: Vital Signs Temp 98.1 F 08/14/23 07:31 Pulse 76 08/14/23 07:35 Resp 19 08/14/23 07:35 BP 122/69 08/14/23 07:31 Pulse Ox 94 L 08/14/23 07:31 FiO2 Intake & Output 08/13/23 08/14/23 08/14/23 18:59 06:59 18:59 Output Total 375 Balance -375 Weight 83.7 kg Output: Urine 375 Other: Voiding Method Indwelling Catheter Indwelling Catheter Indwelling Catheter # Bowel Movements 1 - Labs CBC & Chem 7: 08/12/23 06:36 08/14/23 06:11 Labs: Abnormal Lab Results - Last 24 Hours (Table) 08/13/23 08/13/23 08/14/23 Range/Units 17:03 20:33 05:24 BUN (9.0-27.0) mg/dL Creatinine (0.6-1.5) mg/dL Est GFR (CKD-EPI) (>=60) BUN/Creatinine Ratio (12.00-20.00) Ratio Glucose (70-110) mg/dL POC Glucose (mg/dL) 203 H 184 H 140 H (70-110) mg/dL Calcium (8.7-10.3) mg/dL 08/14/23 08/14/23 Range/Units 06:11 11:31 BUN 40.4 H (9.0-27.0) mg/dL Creatinine 3.7 H (0.6-1.5) mg/dL Est GFR (CKD-EPI) 12 L (>=60) BUN/Creatinine Ratio 10.92 L (12.00-20.00) Ratio Glucose 131 H (70-110) mg/dL POC Glucose (mg/dL) 169 H (70-110) mg/dL Calcium 8.2 L (8.7-10.3) mg/dL Assessment and Plan Plan: Assessment: 1. Acute kidney injury secondary to vasomotor nephropathy from diuresis. Renal function slightly worsened with creatinine 3.7 today. Kidneys noted to be atrophic with no evidence of hydronephrosis. 2. Left knee infected wound status post lrlct-ogv-rpek amputation 08/09/2023. 3. Chronic kidney disease stage IV with baseline creatinine 2.3-2.7 secondary to diabetic kidney disease and cardiorenal syndrome. 4. Chronic diastolic CHF. 5. Anemia of chronic kidney disease. Iron deficiency noted. 6. Chronic kidney disease mineral bone disease maintained on calcitriol. 7. Hypertension with chronic kidney disease. Controlled. 8. Diabetes mellitus. 9. Urinary retention. Akhtar catheter placed 08/11/2023. On Flomax. Plan: Lasix 40 mg IV once today. Encourage oral intake. Maintain IV iron. Add Aranesp. Hold hydralazine for systolic blood pressure less than 120. Avoid nephrotoxins.
--- NOTE | 2023-08-14 12:10 | P.PN ---
Subjective Progress Note Date: 08/14/23 Principal diagnosis: Recurrent infection left knee, wound Patient seen as follow-up. Postop day #5 for left xvhhe-eft-qgsn amputation. Patient is being monitored for acute on chronic kidney injury. No other complaints at this time. Objective - Vital Signs Vital signs: Vital Signs Temp 98.1 F 08/14/23 07:31 Pulse 76 08/14/23 07:35 Resp 19 08/14/23 07:35 BP 122/69 08/14/23 07:31 Pulse Ox 94 L 08/14/23 07:31 FiO2 Intake & Output 08/13/23 08/14/23 08/14/23 18:59 06:59 18:59 Output Total 375 Balance -375 Weight 83.7 kg Output: Urine 375 Other: Voiding Method Indwelling Catheter Indwelling Catheter Indwelling Catheter # Bowel Movements 1 - Exam General appearance: The patient is alert, oriented, appears in no acute distress. Obese. HET: Head is normocephalic and atraumatic. Pupils are equal and reactive. Neck: Supple. Abdomen: Soft, nondistended. Extremities: Left cobem-vsi-sflo amputation stump with stump soft work cigar machine operator and rigid dressing in place. Dressing changed, incision site well approximated with yasir, with minimal serosanguineous drainage. Neurological: Alert and oriented. - Labs CBC & Chem 7: 08/12/23 06:36 08/14/23 06:11 Labs: Abnormal Lab Results - Last 24 Hours (Table) 08/13/23 08/13/23 08/14/23 Range/Units 17:03 20:33 05:24 BUN (9.0-27.0) mg/dL Creatinine (0.6-1.5) mg/dL Est GFR (CKD-EPI) (>=60) BUN/Creatinine Ratio (12.00-20.00) Ratio Glucose (70-110) mg/dL POC Glucose (mg/dL) 203 H 184 H 140 H (70-110) mg/dL Calcium (8.7-10.3) mg/dL 08/14/23 08/14/23 Range/Units 06:11 11:31 BUN 40.4 H (9.0-27.0) mg/dL Creatinine 3.7 H (0.6-1.5) mg/dL Est GFR (CKD-EPI) 12 L (>=60) BUN/Creatinine Ratio 10.92 L (12.00-20.00) Ratio Glucose 131 H (70-110) mg/dL POC Glucose (mg/dL) 169 H (70-110) mg/dL Calcium 8.2 L (8.7-10.3) mg/dL Assessment and Plan Assessment: 1. Chronic recurrent left knee periprosthetic infection staus post left qsbci-nvl-zfrd amputation 2. Left knee open wound 3. Coronary artery disease 4. History of atrial fibrillation on Eliquis 5. Diabetes mellitus 6. Epilepsy 7. Parkinson's disorder 8. Hypertension and hyperlipidemia 9. Acute on Chronic kidney disease Plan: 1. Stump soft work cigar machine operator and rigid dressing to left uqhyz-byu-nwho amputation. 2. Dressing change daily. Clean with Betadine solution, apply Kerlix and then stump soft work cigar machine operator and rigid dressing. Thank you for this consultation, patient is cleared for discharge from vascular surgery. The impression and plan of care has been dictated as directed. Dr. Spencer I performed a history and examination of this patient, discussed the same with the dictator. I agree with the dictator's note ,documented as a scribe. Any additional findings or plans will be noted.
[2023-08-14] MEDS: DARBEPOETIN ALFA 40 MCG/0.4 ML SYRINGE SQ SCH (14:09)
--- NOTE | 2023-08-14 15:49 | P.PN ---
Subjective Progress Note Date: 08/14/23 (delayed charing seen at 1030) Patient is an 78-year-old female with diabetes mellitus type 2, paroxysmal a trial fibrillation, Parkinson's, seizure disorder, sick sinus syndrome status post pacemaker, and chronic kidney disease stage III as well as other comorbid conditions who presented to the ER at the direction of Dr. Jones. Patient has a remote history of a left total knee replacement done an outside hospital. She ultimately developed a periprosthetic joint infection which required several attempts at infection control with placement of a static antibiotic spacer. After her last surgery she was informed by family that she would likely need an above knee amputation for infection recurred. Recently the patient developed a draining sinus over the anterior aspect of the knee will stay on her halfway when she therefore was referred to Dr. Jones. He recommended admitting the patient for possible AKA prior to her becoming systemically ill from the underlying infection. On arrival to the ER she was hypertensive with a blood pressure of 198/86. Laboratory analysis was remarkable for white blood cell count 10.7, BUN 44, creatinine 2.64. She is admitted for acute on chronic knee infection. She was started on vancomycin and Zosyn. She was seen by vascular surgery. She underwent AKA on 08/09/23. She was seen by ID and her antibiotic were optimized to cefepime and dapto. She had slightly worsening renal function and her lasix and potassium were stopped and nepohrology was consulted. Patient seen and examined at bedside. She complains of being tired and wanting to be left alone. She also complains of some dizziness. Case discussed with nursing. Patient was complaining of increased pain and had just received [place]. 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 -cefepime 2 g IV every 12 hours Day #7, daptomycin 400 mg IV every 48 hours day #7-- has completed course and s/p amputation will discontinue - blood culture negative - s/p 1unit prbc, no indication for transfusion at this time, follow CBC Acute kidney injury on chronic kidney disease stage IV Paroxysmal atrial fibrillation, history of sick sinus syndrome status post permanent pacemaker Parkinson's disease Hypertension Dyslipidemia -Lipitor on hold due to use of daptomycin -Continue with Coreg 25 mg by mouth twice daily, hydralazine 75 mg 3 times daily -Nephrology note reviewed: Continue to hold hydralazine, maintain IV iron, Lasix 40 mg IV once, hold nephrotoxins. -Sodium bicarb 650 milligrams twice daily -Follow blood pressures - Cardio signed off -Repeat basic metabolic profile in AM. Dementia - safe and supportive environment Diabetes mellitus type 2 -Not on any oral medications -Sliding-scale insulin -Follow blood sugars -A1c 6.9 Urinary retention - has rosales in place, placed 08/11 Chronic: Anemia Muscle weakness Dysphasia Gout Gastritis Imaging: Renal ultrasound reviewed: Atrophic kidneys without evidence of hydronephrosis Data Review: Labs reviewed from today include basic metabolic profile showed BUN of 40.4 and creatinine of 3.7. DVT prophylaxis: Eliquis Anticipated discharge date: in 24-[address]: return to [facility] This dictation was prepared using [employer] voice recognition software. Though every attempt is made to correct errors during dictation some may still exist. Objective - Vital Signs Vital signs: Vital Signs Temp 98.1 F 08/14/23 07:31 Pulse 76 08/14/23 07:35 Resp 19 08/14/23 07:35 BP 122/69 08/14/23 07:31 Pulse Ox 94 L 08/14/23 07:31 FiO2 Intake & Output 08/13/23 08/14/23 08/14/23 18:59 06:59 18:59 Output Total 375 Balance -375 Weight 83.7 kg Output: Urine 375 Other: Voiding Method Indwelling Catheter Indwelling Catheter Indwelling Catheter # Bowel Movements 1 - Labs CBC & Chem 7: 08/12/23 06:36 08/14/23 06:11 Labs: Abnormal Lab Results - Last 24 Hours (Table) 08/13/23 08/13/23 08/14/23 Range/Units 17:03 20:33 05:24 BUN (9.0-27.0) mg/dL Creatinine (0.6-1.5) mg/dL Est GFR (CKD-EPI) (>=60) BUN/Creatinine Ratio (12.00-20.00) Ratio Glucose (70-110) mg/dL POC Glucose (mg/dL) 203 H 184 H 140 H (70-110) mg/dL Calcium (8.7-10.3) mg/dL 08/14/23 08/14/23 Range/Units 06:11 11:31 BUN 40.4 H (9.0-27.0) mg/dL Creatinine 3.7 H (0.6-1.5) mg/dL Est GFR (CKD-EPI) 12 L (>=60) BUN/Creatinine Ratio 10.92 L (12.00-20.00) Ratio Glucose 131 H (70-110) mg/dL POC Glucose (mg/dL) 169 H (70-110) mg/dL Calcium 8.2 L (8.7-10.3) mg/dL
--- NOTE | 2023-08-14 16:20 | P.PN ---
Subjective Progress Note Date: 08/14/23 Principal diagnosis: Reason for follow-up is recurrent left knee septic arthritis Patient is a 78-year-old female with a past medical history pertinent for atrial fibrillation diabetes mellitus hypertension hyperlipidemia dementia patient did have a history of 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 knee that has been treated by her orthopedic surgeon with a static antibiotic spacer however the patient did have a development of a draining sinus from the left knee for the patient has been advised about the knee amputation for the patient has been admitted to the hospital, the patient is status post left [id number] amputation completed on 08/09/2023 On today's evaluation that is 08/14/2023, the patient denies any fever or any chills and is breathing comfortably on room air , and patient denies chest pain shortness of breath, the patient denies nausea/vomiting and no diarrhea has been reported, the patient pain to the left AKA site currently controlled Patient did have white 12.1 as of 08/12/2023 , no CBC was done today, creatinine is 3.06 local cultures with MRSA and pseudomonas aeruginosa Objective - Vital Signs Vital signs: Vital Signs Temp 98.1 F 08/14/23 07:31 Pulse 76 08/14/23 07:35 Resp 19 08/14/23 07:35 BP 122/69 08/14/23 07:31 Pulse Ox 94 L 08/14/23 07:31 FiO2 Intake & Output 08/13/23 08/14/23 08/14/23 18:59 06:59 18:59 Output Total 375 Balance -375 Weight 83.7 kg Output: Urine 375 Other: Voiding Method Indwelling Catheter Indwelling Catheter Indwelling Catheter # Bowel Movements 1 - Exam GENERAL DESCRIPTION: An elderly female lying in bed in no distress RESPIRATORY SYSTEM: Unlabored breathing , clear to auscultation anteriorly HEART: S1 S2 regular rate and rhythm , ABDOMEN: Soft , no tenderness EXTREMITIES: Left AKA stump is currently dressed - Labs CBC & Chem 7: 08/12/23 06:36 08/14/23 06:11 Labs: Abnormal Lab Results - Last 24 Hours (Table) 08/13/23 08/13/23 08/14/23 Range/Units 17:03 20:33 05:24 BUN (9.0-27.0) mg/dL Creatinine (0.6-1.5) mg/dL Est GFR (CKD-EPI) (>=60) BUN/Creatinine Ratio (12.00-20.00) Ratio Glucose (70-110) mg/dL POC Glucose (mg/dL) 203 H 184 H 140 H (70-110) mg/dL Calcium (8.7-10.3) mg/dL 08/14/23 08/14/23 Range/Units 06:11 11:31 BUN 40.4 H (9.0-27.0) mg/dL Creatinine 3.7 H (0.6-1.5) mg/dL Est GFR (CKD-EPI) 12 L (>=60) BUN/Creatinine Ratio 10.92 L (12.00-20.00) Ratio Glucose 131 H (70-110) mg/dL POC Glucose (mg/dL) 169 H (70-110) mg/dL Calcium 8.2 L (8.7-10.3) mg/dL Assessment and Plan (1) Infection of knee Current Visit: Yes Status: Acute Code(s): M00.9 - PYOGENIC ARTHRITIS, UNSPECIFIED SNOMED Code(s): 600469817 (2) Leukocytosis Current Visit: No Status: Acute Code(s): D72.829 - ELEVATED WHITE BLOOD CELL COUNT, UNSPECIFIED SNOMED Code(s): 426738386 Plan: 1patient with a history of 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 knee and apparently did have multiple surgeries and has been treated with multiple courses of antibiotic now with a 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 and per determination by tabetic surgery patient will need left above-knee amputation in order to cure of this infection and apparently the patient and family seem to be agreeable to that for which vascular surgery has been consulted 2-blood culture has been negative and local cultures obtained and currently growing MRSA and pseudomonas that was intermediate to Zosyn 3--mild leukocytosis more likely reactive post surgery as infected part was removed and the patient was not bacteremic we will discontinue the cefepime and monitor the patient closely off antibiotic therapy Dictation was produced using [employer] dictation software. please excuse any grammatical, word or spelling errors. Time with Patient: Less than 30
[2023-08-14 16:42] LABS: Glucose,Whole Blood 137 mg/dL (70-110)
[2023-08-14] MEDS: LACTATED RINGERS 1,000 ML IV SCH (20:01)
[2023-08-14 20:23] LABS: Glucose,Whole Blood 145 mg/dL (70-110)
[2023-08-14] MEDS: clonazePAM 0.5 MG TAB PO SCH (22:29)
[2023-08-14] MEDS: ATORVASTATIN 40 MG TAB PO SCH (22:29)
[2023-08-15 05:42] LABS: Glucose,Whole Blood 123 mg/dL (70-110)
[2023-08-15] MEDS: INSULIN ASPART (NovoLOG) 100 UNIT/ML VIAL SQ SCH ×4 (06:03→21:07)
[2023-08-15] MEDS: carvediloL 12.5 MG TAB PO SCH ×2 (06:29→17:59)
[2023-08-15] MEDS: hydrALAZINE HCL 50 MG TAB PO SCH ×3 (07:11→21:07)
[2023-08-15] MEDS: allopurinoL 300 MG TAB PO SCH (07:14)
[2023-08-15] MEDS: MAGNESIUM OXIDE 400 MG TAB PO SCH (07:14)
[2023-08-15] MEDS: APIXABAN 2.5 MG TABLET PO SCH ×2 (07:14→21:07)
[2023-08-15] MEDS: GABAPENTIN 300 MG CAP PO SCH (07:14)
[2023-08-15] MEDS: SODIUM BICARBONATE TAB 650 MG TAB PO SCH ×2 (07:14→21:07)
[2023-08-15] MEDS: PANTOPRAZOLE 40 MG TABLET PO SCH (07:14)
[2023-08-15] MEDS: TAMSULOSIN 0.4 MG CAP.ER.24H PO SCH (07:14)
[2023-08-15] MEDS: SERTRALINE 25 MG TAB PO SCH (07:15)
[2023-08-15] MEDS: SODIUM FERRIC GLUCONAT-SUCROSE 125 MG in SODIUM CHLORIDE 0.9% 100 ML IVPB SCH (07:59)
[2023-08-15] MEDS: NYSTATIN 100,000 UNIT/GM POWD 15 GM TOPICAL SCH ×3 (07:59→21:07)
--- NOTE | 2023-08-15 11:00 | P.PN ---
Subjective Patient is seen in follow-up for acute kidney injury on chronic kidney disease. Creatinine slightly worse at 3.7 yesterday. Hemodynamically stable. Has Akhtar catheter. Nonoliguric. Oral intake fair. Vital signs are stable. General: No acute distress. HEENT: Head exam is unremarkable. LUNGS: No audible rhonchi and wheezes. HEART: Rate and Rhythm are regular. ABDOMEN: Nontender. EXTREMITITES: 2+ edema. AKA noted. Objective - Vital Signs Vital signs: Vital Signs Temp 97.9 F 08/15/23 07:08 Pulse 86 08/15/23 07:08 Resp 17 08/15/23 07:08 BP 112/58 08/15/23 07:08 Pulse Ox 100 08/15/23 07:08 FiO2 Intake & Output 08/14/23 08/15/23 08/15/23 18:59 06:59 18:59 Intake Total 500 100 Output Total 520 Balance 500 -420 Intake: Intake, IV Titration 100 100 Amount Sodium Ferric Gluconat- 100 100 Sucrose 125 mg In Sodium Chloride 0.9% 100 ml @ 100 mls/hr IVPB DAILY [facility] Rx#:[id number] Oral 400 Output: Urine 520 Other: Voiding Method Indwelling Catheter Indwelling Catheter Indwelling Catheter # Bowel Movements 1 - Labs CBC & Chem 7: 08/12/23 06:36 08/14/23 06:11 Labs: Abnormal Lab Results - Last 24 Hours (Table) 08/14/23 08/14/23 08/14/23 Range/Units 06:11 11:31 16:40 BUN 40.4 H (9.0-27.0) mg/dL Creatinine 3.7 H (0.6-1.5) mg/dL Est GFR (CKD-EPI) 12 L (>=60) BUN/Creatinine Ratio 10.92 L (12.00-20.00) Ratio Glucose 131 H (70-110) mg/dL POC Glucose (mg/dL) 169 H 137 H (70-110) mg/dL Calcium 8.2 L (8.7-10.3) mg/dL 08/14/23 08/15/23 Range/Units 20:21 05:40 BUN (9.0-27.0) mg/dL Creatinine (0.6-1.5) mg/dL Est GFR (CKD-EPI) (>=60) BUN/Creatinine Ratio (12.00-20.00) Ratio Glucose (70-110) mg/dL POC Glucose (mg/dL) 145 H 123 H (70-110) mg/dL Calcium (8.7-10.3) mg/dL Assessment and Plan Plan: Assessment: 1. Acute kidney injury secondary to vasomotor nephropathy from diuresis. Renal function slightly worsened with creatinine 3.7 as of yesterday. Kidneys noted to be atrophic with no evidence of hydronephrosis. 2. Left knee infected wound status post iljbw-rhr-[id number] amputation 08/09/2023. 3. Chronic kidney disease stage IV with baseline creatinine 2.3-2.7 secondary to diabetic kidney disease and cardiorenal syndrome. 4. Chronic diastolic CHF. 5. Anemia of chronic kidney disease. Iron deficiency noted. Receiving IV iron. Also on Aranesp. 6. Chronic kidney disease mineral bone disease maintained on calcitriol. 7. Hypertension with chronic kidney disease. Controlled. 8. Diabetes mellitus. 9. Urinary retention. Akhtar catheter placed 08/11/2023. On Flomax. Plan: Status post IV Lasix given 08/14/2023. Repeat chest x-ray. Encourage oral intake. Hold hydralazine for systolic blood pressure less than 120. Avoid nephrotoxins. Morning labs pending.
[2023-08-15 11:32] LABS: Glucose,Whole Blood 146 mg/dL (70-110)
--- NOTE | 2023-08-15 13:11 | XR ---
EXAMINATION TYPE: XR chest 1V portable DATE OF EXAM: 08/15/2023 COMPARISON: 08/13/2023 INDICATION: CHF TECHNIQUE: Single frontal view of the chest is obtained. FINDINGS: The heart size is prominent. Pacemaker overlies left chest. The pulmonary vasculature is normal. Mild left lower lobe infiltrate is present. There is slight improvement over the interval. There is s ilhouetting diaphragm. IMPRESSION: 1. Mild retrocardiac infiltrate may be present. Follow-up is recommended.
[2023-08-15 13:31] LABS: African American GFR (CKD) 12 (>60 ml/min/1.73 sqM); Anion Gap 8 mmol/L; Blood Urea Nitrogen 44 mg/dL (7-17); Calcium 8.2 mg/dL (8.4-10.2); Carbon Dioxide 22 mmol/L (22-30); Chloride 107 mmol/L (98-107); Glucose 123 mg/dL (74-99); Magnesium 2.1 mg/dL (1.6-2.3); Non-African American GFR(CKD) 11 (>60 ml/min/1.73 sqM); Potassium 4.7 mmol/L (3.5-5.1); Sodium 137 mmol/L (137-145)
[2023-08-15] MEDS ORDERED: FUROSEMIDE 10 MG/ML 4 ML VIAL IV STA (15:10)
[2023-08-15 16:36] LABS: Glucose,Whole Blood 218 mg/dL (70-110)
--- NOTE | 2023-08-15 19:27 | P.PN ---
Subjective Progress Note Date: 08/15/23 (delayed charting seen at 1055) Patient is an 78-year-old female with diabetes mellitus type 2, paroxysmal atrial fibrillation, Parkinson's, seizure disorder, sick sinus syndrome status post pacemaker, and chronic kidney disease stage III as well as other comorbid conditions who presented to the ER at the direction of Dr. Jones. Patient has a remote history of a left total knee replacement done an outside hospital. She ultimately developed a periprosthetic joint infection which required several att empts at infection control with placement of a static antibiotic spacer. After her last surgery she was informed by family that she would likely need an above knee amputation for infection recurred. Recently the patient developed a draining sinus over the anterior aspect of the knee will stay on her shelter when she therefore was referred to Dr. Jones. He recommended admitting the patient for possible AKA prior to her becoming systemically ill from the underlying infection. On arrival to the ER she was hypertensive with a blood pressure of 198/86. Laboratory analysis was remarkable for white blood cell count 10.7, BUN 44, creatinine 2.64. She is admitted for acute on chronic knee infection. She was started on vancomycin and Zosyn. She was seen by vascular surgery. She underwent AKA on 08/09/23. She was seen by ID and her antibiotic were optimized to cefepime and dapto. She had slightly worsening renal function and her lasix and potassium were stopped and nepohrology was consulted. She deve,oped some fluid overload and lasix was restarted. Patient seen and examined at bedside. She complains of being tired and wanting to be left alone. She also complains of some dizziness. Case discussed with nursing. Patient was complaining of increased pain and had just received [place]. 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 Acute blood loss anemia, on chronic anemia, anticipated outcome of surgery -Vascular surgery note reviewed: signed off, outpatient follow-up - completed 7 days of dapto and cefepime - blood culture negative - s/p 1unit prbc, no indication for transfusion at this time, follow CBC Acute kidney injury on chronic kidney disease stage IV Paroxysmal atrial fibrillation, history of sick sinus syndrome status post permanent pacemaker Parkinson's disease Hypertension Dyslipidemia -Lipitor on hold due to use of daptomycin -Continue with Coreg 25 mg by mouth twice daily, hydralazine 75 mg 3 times daily - Case discussed with nephrology: Lasix 1 today, could consider discharge tomorrow if renal function again remains stable. -Sodium bicarb 650 milligrams twice daily -Follow blood pressures - Cardio signed off -Repeat basic metabolic profile in AM. Dementia - safe and supportive environment Diabetes mellitus type 2 -Not on any oral medications -Sliding-scale insulin -Follow blood sugars -A1c 6.9 Urinary retention - has rosales in place, placed 08/11 Chronic: Anemia Muscle weakness Dysphasia Gout Gastritis Imaging: Renal ultrasound reviewed: Atrophic kidneys without evidence of hydronephrosis Data Review: Labs reviewed from today include a metabolic profile which is remarkable for BUN 44 and creatinine 3.75. DVT prophylaxis: Eliquis Anticipated discharge date: in [address]: return to [facility] This dictation was prepared using [employer] voice recognition software. Though every attempt is made to correct errors during dictation some may still exist. Objective - Vital Signs Vital signs: Vital Signs Temp 98.1 F 08/15/23 13:37 Pulse 97 08/15/23 18:01 Resp 22 08/15/23 13:37 BP 140/66 08/15/23 18:01 Pulse Ox 93 L 08/15/23 13:37 FiO2 Intake & Output 08/15/23 08/15/23 08/16/23 06:59 18:59 06:59 Intake Total 100 Output Total 520 300 Balance -420 -300 Weight 83.7 kg Intake: Intake, IV Titration 100 Amount Sodium Ferric Gluconat- 100 Sucrose 125 mg In Sodium Chloride 0.9% 100 ml @ 100 mls/hr IVPB DAILY [facility] Rx#:[id number] Output: Urine 520 300 Other: Voiding Method Indwelling Catheter Indwelling Catheter # Bowel Movements 1 - Labs CBC & Chem 7: 08/12/23 06:36 08/15/23 11:55 Labs: Abnormal Lab Results - Last 24 Hours (Table) 08/14/23 08/15/23 08/15/23 Range/Units 20:21 05:40 11:31 BUN (7-17) mg/dL Creatinine (0.52-1.04) mg/dL Glucose (74-99) mg/dL POC Glucose (mg/dL) 145 H 123 H 146 H (70-110) mg/dL Calcium (8.4-10.2) mg/dL 08/15/23 08/15/23 Range/Units 11:55 16:35 BUN 44 H (7-17) mg/dL Creatinine 3.75 H (0.52-1.04) mg/dL Glucose 123 H (74-99) mg/dL POC Glucose (mg/dL) 218 H (70-110) mg/dL Calcium 8.2 L (8.4-10.2) mg/dL
[2023-08-15 20:31] LABS: Glucose,Whole Blood 180 mg/dL (70-110)
[2023-08-15] MEDS: ATORVASTATIN 40 MG TAB PO SCH (21:07)
[2023-08-15] MEDS: clonazePAM 0.5 MG TAB PO SCH (21:07)
[2023-08-15] MEDS: LACTATED RINGERS 1,000 ML IV SCH (21:12)
[2023-08-16] MEDS: HYDROcodone/APAP 5-325MG 1 EACH TAB PO PRN ×2 (00:15→09:59)
[2023-08-16 05:22] LABS: Glucose,Whole Blood 161 mg/dL (70-110)
[2023-08-16] MEDS: INSULIN ASPART (NovoLOG) 100 UNIT/ML VIAL SQ SCH ×4 (06:43→21:37)
[2023-08-16] MEDS: carvediloL 12.5 MG TAB PO SCH ×2 (06:43→17:22)
[2023-08-16] MEDS: SODIUM FERRIC GLUCONAT-SUCROSE 125 MG in SODIUM CHLORIDE 0.9% 100 ML IVPB SCH (09:08)
[2023-08-16 09:25] LABS: HCT 24.1 % (37.2-46.3); HGB 7.2 g/dL (12.0-15.0); MCH 30.3 pg (27.0-32.0); MCHC 29.9 g/dL (32.0-37.0); MCV 101.3 FL (80.0-97.0); Mean Platelet Volume 10.4 FL (9.5-12.2); NRBC Per 100 WBC 0 X 10*3/uL (0.00-0.01); Platelet Count 297 X 10*3/uL (140-440); RBC 2.38 X 10*6/uL (4.10-5.20); WBC 14.26 X 10*3/uL (4.50-10.00)
[2023-08-16] MEDS: allopurinoL 300 MG TAB PO SCH (09:59)
[2023-08-16] MEDS: MAGNESIUM OXIDE 400 MG TAB PO SCH (09:59)
[2023-08-16] MEDS: TAMSULOSIN 0.4 MG CAP.ER.24H PO SCH (10:00)
[2023-08-16] MEDS: SERTRALINE 25 MG TAB PO SCH (10:00)
[2023-08-16] MEDS: SODIUM BICARBONATE TAB 650 MG TAB PO SCH ×2 (10:00→21:14)
[2023-08-16] MEDS: GABAPENTIN 300 MG CAP PO SCH (10:00)
[2023-08-16] MEDS: hydrALAZINE HCL 50 MG TAB PO SCH ×3 (10:00→21:14)
[2023-08-16] MEDS: NYSTATIN 100,000 UNIT/GM POWD 15 GM TOPICAL SCH ×3 (10:39→21:15)
[2023-08-16] MEDS: APIXABAN 2.5 MG TABLET PO SCH ×2 (10:39→21:14)
--- NOTE | 2023-08-16 11:18 | P.PN ---
Subjective Patient is seen in follow-up for acute kidney injury on chronic kidney disease. Renal function fairly stable as of yesterday. Hemodynamically stable. Has Akhtar catheter. Nonoliguric. Oral intake fair. Poor historian. Vital signs are stable. General: No acute distress. HEENT: Head exam is unremarkable. LUNGS: No audible rhonchi and wheezes. HEART: Rate and Rhythm are regular. ABDOMEN: Nontender. EXTREMITITES: 2+ edema. AKA noted. Objective - Vital Signs Vital signs: Vital Signs Temp 98.3 F 08/16/23 07:39 Pulse 78 08/16/23 07:40 Resp 18 08/16/23 07:40 BP 157/84 08/16/23 07:39 Pulse Ox 98 08/16/23 07:39 FiO2 Intake & Output 08/15/23 08/16/23 08/16/23 18:59 06:59 18:59 Output Total 300 Balance -300 Weight 83.7 kg Output: Urine 300 Other: Voiding Method Indwelling Catheter Indwelling Catheter Indwelling Catheter # Bowel Movements 1 - Labs CBC & Chem 7: 08/16/23 05:59 08/15/23 11:55 Labs: Abnormal Lab Results - Last 24 Hours (Table) 08/15/23 08/15/23 08/15/23 Range/Units 11:31 11:55 16:35 WBC (4.50-10.00) X 10*3/uL RBC (4.10-5.20) X 10*6/uL Hgb (12.0-15.0) g/dL Hct (37.2-46.3) % MCV (80.0-97.0) FL MCHC (32.0-37.0) g/dL RDW (11.5-14.5) % BUN 44 H (7-17) mg/dL Creatinine 3.75 H (0.52-1.04) mg/dL Glucose 123 H (74-99) mg/dL POC Glucose (mg/dL) 146 H 218 H (70-110) mg/dL Calcium 8.2 L (8.4-10.2) mg/dL 08/15/23 08/16/23 08/16/23 Range/Units 20:28 05:21 05:59 WBC 14.26 H (4.50-10.00) X 10*3/uL RBC 2.38 L (4.10-5.20) X 10*6/uL Hgb 7.2 L (12.0-15.0) g/dL Hct 24.1 L (37.2-46.3) % MCV 101.3 H (80.0-97.0) FL MCHC 29.9 L (32.0-37.0) g/dL RDW 17.0 H (11.5-14.5) % BUN (7-17) mg/dL Creatinine (0.52-1.04) mg/dL Glucose (74-99) mg/dL POC Glucose (mg/dL) 180 H 161 H (70-110) mg/dL Calcium (8.4-10.2) mg/dL Assessment and Plan Plan: Assessment: 1. Acute kidney injury secondary to vasomotor nephropathy from diuresis. Renal function fairly stable with creatinine 3.75 yesterday. Kidneys noted to be atrophic with no evidence of hydronephrosis. 2. Left knee infected wound status post [id number] amputation 08/09/2023. 3. Chronic kidney disease stage IV with baseline creatinine 2.3-2.7 secondary to diabetic kidney disease and cardiorenal syndrome. 4. Chronic diastolic CHF. 5. Anemia of chronic kidney disease. Iron deficiency noted. Receiving IV iron. Also on Aranesp. 6. Chronic kidney disease mineral bone disease maintained on calcitriol. 7. Hypertension with chronic kidney disease. Stable. 8. Diabetes mellitus. 9. Urinary retention. Akhtar catheter placed 08/11/2023. On Flomax. Plan: Status post IV Lasix given 08/14/2023 and 08/15/2023. Hold diuretics today. Encourage oral intake. Hold hydralazine for systolic blood pressure less than 120. Avoid nephrotoxins. Continue to monitor renal function and urine output. Defer blood transfusion to primary team.
[2023-08-16 12:06] LABS: Glucose,Whole Blood 155 mg/dL (70-110)
[2023-08-16 12:11] LABS: BUN/Creat Ratio 11.61 Ratio (12.00-20.00); Blood Urea Nitrogen 47.6 mg/dL (9.0-27.0); Calcium 8.3 mg/dL (8.7-10.3); Chloride 105 mmol/L (96-109); Glucose 123 mg/dL (70-110); Magnesium 2.1 mg/dL (1.5-2.4); Potassium 4.6 mmol/L (3.5-5.5); Sodium 138 mmol/L (135-145)
--- NOTE | 2023-08-16 14:01 | P.PN ---
Subjective Progress Note Date: 08/16/23 Patient is an 78-year-old female with diabetes mellitus type 2, paroxysmal atrial fibrillation, Parkinson's, seizure disorder, sick sinus syndrome status post pacemaker, and chronic kidney disease stage III as well as other comorbid conditions who presented to the ER at the direction of Dr. Jones. Patient has a remote history of a left total knee replacement done an outside hospital. She ultimately developed a periprosthetic joint infection which required several attempts at infection control with placement of a static antibiotic spacer. After her last surgery she was informed by family that she would likely need an above knee amputation for infection recurred. Recently the patient developed a draining sinus over the anterior aspect of the knee will stay on her intermediate when she therefore was referred to Dr. Jones. He recommended admitting the patient for possible AKA prior to her becoming systemically ill from the underlying infection. On arrival to the ER she was hypertensive with a blood pressure of 198/86. Laboratory analysis was remarkable for white blood cell count 10.7, BUN 44, creatinine 2.64. She is admitted for acute on chronic knee infection. She was started on vancomycin and Zosyn. She was seen by vascular surgery. She underwent AKA on 08/09/23. She was seen by ID and her antibiotic were optimized to cefepime and daptomycin. Currently, she has completed 7 days of Cefepime and Daptomycin. She continues to have worsening renal function, Nephrology was consulted. She was given intermittent Lasix for fluid overload. She was given 1 unit of PRBC for acute blood loss anemia. 08/16 Patient was seen and examined. She reports no complaints. CBC WBC 14.26, Hg 7.2, Hct 24.1, MCV 101.3. BMP bicab 21, BUN 47.6, C 4.1, glu 123, Ca 7.3. Nephrology recommends continuing renal function monitoring. 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 Completed 7 days of Cefepime and Daptomycin. Acute blood loss anemia, on chronic anemia: Anticipated outcome of surgery. Repeat CBC tomorrow morning. Transfuse if Hg < 7. Acute kidney injury on chronic kidney disease stage IV: Worsening. Nephrology on board. Repeat BMP tomorrow morning. Paroxysmal atrial fibrillation, history of sick sinus syndrome status post permanent pacemaker: Coreg 25 mg by mouth twice daily. Eliquis 2.5 mg PO BID for AC. Parkinson's disease Hypertension: Coreg as above. Hydralazine 75 mg 3 times daily. Dyslipidemia: Lipitor 40 mg PO QHS. Dementia Diabetes mellitus type 2: ISS. Accuchecks ACHS. Hypoglycemic precautions. Urinary retention: Akhtar placed 08/11. Based on my assessment of this patient, this patient meets a moderate complexity level of care. Patient has a new diagnosis of left knee periprosthetic joint infection with underlying chronic infection with pneudomonas and MRSA status post left AKA 12 with uncertain prognosis. 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 Completed 7 days of Cefepime and Daptomycin. Acute blood loss anemia, on chronic anemia: Anticipated outcome of surgery. Repeat CBC tomorrow morning. Transfuse if Hg < 7. Acute kidney injury on chronic kidney disease stage IV: Worsening. Nephrology on board. Repeat BMP tomorrow morning. Paroxysmal atrial fibrillation, history of sick sinus syndrome status post permanent pacemaker: Coreg 25 mg by mouth twice daily. Eliquis 2.5 mg PO BID for AC. Parkinson's disease Hypertension: Coreg as above. Hydralazine 75 mg 3 times daily. Dyslipidemia: Lipitor 40 mg PO QHS. Dementia Diabetes mellitus type 2: ISS. Accuchecks ACHS. Hypoglycemic precautions. Urinary retention: Akhtar placed 08/11. CODE STATUS: DVT Prophylaxis: Eliquis GI Prophylaxis: Protonix Designated medical POA if patient is not able to make medical decisions for themselves: I have reviewed the following customer consultant notes: Nephrology note. I have reviewed the results of the following tests: CBC, BMP. I have ordered the following tests: CBC, BMP. I have discussed the care of this patient with the following independent historian: I have independently interpreted the following test below: I have discussed the management of this patient with the following physician: Objective - Vital Signs Vital signs: Vital Signs Temp 98.3 F 08/16/23 07:39 Pulse 78 08/16/23 07:40 Resp 18 08/16/23 07:40 BP 157/84 08/16/23 07:39 Pulse Ox 98 08/16/23 07:39 FiO2 Intake & Output 08/15/23 08/16/23 08/16/23 18:59 06:59 18:59 Output Total 300 Balance -300 Weight 83.7 kg Output: Urine 300 Other: Voiding Method Indwelling Catheter Indwelling Catheter Indwelling Catheter # Bowel Movements 1 - Labs CBC & Chem 7: 08/16/23 05:59 08/16/23 05:59 Labs: Abnormal Lab Results - Last 24 Hours (Table) 08/15/23 08/15/23 08/16/23 Range/Units 16:35 20:28 05:21 WBC (4.50-10.00) X 10*3/uL RBC (4.10-5.20) X 10*6/uL Hgb (12.0-15.0) g/dL Hct (37.2-46.3) % MCV (80.0-97.0) FL MCHC (32.0-37.0) g/dL RDW (11.5-14.5) % Carbon Dioxide (21.6-31.8) mmol/L BUN (9.0-27.0) mg/dL Creatinine (0.6-1.5) mg/dL Est GFR (CKD-EPI) (>=60) BUN/Creatinine Ratio (12.00-20.00) Ratio Glucose (70-110) mg/dL POC Glucose (mg/dL) 218 H 180 H 161 H (70-110) mg/dL Calcium (8.7-10.3) mg/dL 08/16/23 08/16/23 08/16/23 Range/Units 05:59 05:59 11:54 WBC 14.26 H (4.50-10.00) X 10*3/uL RBC 2.38 L (4.10-5.20) X 10*6/uL Hgb 7.2 L (12.0-15.0) g/dL Hct 24.1 L (37.2-46.3) % MCV 101.3 H (80.0-97.0) FL MCHC 29.9 L (32.0-37.0) g/dL RDW 17.0 H (11.5-14.5) % Carbon Dioxide 21.0 L (21.6-31.8) mmol/L BUN 47.6 H (9.0-27.0) mg/dL Creatinine 4.1 H (0.6-1.5) mg/dL Est GFR (CKD-EPI) 10 L (>=60) BUN/Creatinine Ratio 11.61 L (12.00-20.00) Ratio Glucose 123 H (70-110) mg/dL POC Glucose (mg/dL) 155 H (70-110) mg/dL Calcium 8.3 L (8.7-10.3) mg/dL
[2023-08-16 16:38] LABS: Glucose,Whole Blood 155 mg/dL (70-110)
[2023-08-16] MEDS ORDERED: ZINC OXIDE PASTE (Z-GUARD) 1 APPLIC APPLIC TOPICAL PRN (17:17)
[2023-08-16] MEDS ORDERED: LACTATED RINGERS 1,000 ML IV SCH (18:30)
[2023-08-16] MEDS: ATORVASTATIN 40 MG TAB PO SCH (21:14)
[2023-08-16] MEDS: clonazePAM 0.5 MG TAB PO SCH (21:14)
[2023-08-16 21:31] LABS: Glucose,Whole Blood 168 mg/dL (70-110)
[2023-08-17] MEDS: HYDROcodone/APAP 5-325MG 1 EACH TAB PO PRN ×2 (01:11→20:33)
[2023-08-17] MEDS: LACTATED RINGERS 1,000 ML IV SCH ×2 (02:27→17:56)
[2023-08-17 06:19] LABS: Anisocytosis Slight; HCT 23.7 % (34.0-46.0); HGB 7.2 gm/dL (11.4-16.0); Hypochromasia Marked; MCH 31.5 pg (25.0-35.0); MCHC 30.5 g/dL (31.0-37.0); MCV 103.1 fL (80.0-100.0); Macrocytosis Moderate; Mean Platelet Volume 8.1; Platelet Count 273 k/uL (150-450); RDW 17.5 % (11.5-15.5)
[2023-08-17 06:51] LABS: Glucose,Whole Blood 149 mg/dL (70-110)
[2023-08-17] MEDS: INSULIN ASPART (NovoLOG) 100 UNIT/ML VIAL SQ SCH ×4 (06:55→20:32)
[2023-08-17] MEDS: carvediloL 12.5 MG TAB PO SCH ×2 (06:55→17:56)
[2023-08-17 09:15] LABS: BUN/Creat Ratio 11.69 Ratio (12.00-20.00); Blood Urea Nitrogen 49.1 mg/dL (9.0-27.0); Calcium 8.1 mg/dL (8.7-10.3); Carbon Dioxide 20.1 mmol/L (21.6-31.8); Chloride 107 mmol/L (96-109); Glucose 135 mg/dL (70-110); Magnesium 2.1 mg/dL (1.5-2.4); Potassium 4.9 mmol/L (3.5-5.5); Sodium 138 mmol/L (135-145)
[2023-08-17] MEDS: TAMSULOSIN 0.4 MG CAP.ER.24H PO SCH (09:18)
[2023-08-17] MEDS: PANTOPRAZOLE 40 MG TABLET PO SCH (09:18)
[2023-08-17] MEDS: MAGNESIUM OXIDE 400 MG TAB PO SCH (09:18)
[2023-08-17] MEDS: GABAPENTIN 300 MG CAP PO SCH (09:19)
[2023-08-17] MEDS: SERTRALINE 25 MG TAB PO SCH (09:19)
[2023-08-17] MEDS: SODIUM BICARBONATE TAB 650 MG TAB PO SCH ×2 (09:19→20:33)
[2023-08-17] MEDS: allopurinoL 300 MG TAB PO SCH (09:19)
[2023-08-17] MEDS: APIXABAN 2.5 MG TABLET PO SCH ×2 (09:19→20:32)
[2023-08-17 11:18] LABS: Glucose,Whole Blood 221 mg/dL (70-110)
[2023-08-17] MEDS ORDERED: FUROSEMIDE 10 MG/ML 10 ML VIAL IV STA (11:28)
--- NOTE | 2023-08-17 11:30 | P.PN ---
Subjective Patient is seen in follow-up for acute kidney injury on chronic kidney disease. Renal function has been gradually worsening the last few days. Creatinine 4.2 today. Hemodynamically stable. Has Akhtar catheter. Oral intake fair. Poor historian. Last dose of Lasix given 08/15/2023. Vital signs are stable. General: No acute distress. HEENT: Head exam is unremarkable. LUNGS: No audible rhonchi and wheezes. HEART: Rate and Rhythm are regular. ABDOMEN: Nontender. EXTREMITITES: 2+ edema. AKA noted. Objective - Vital Signs Vital signs: Vital Signs Temp 98.4 F 08/17/23 07:58 Pulse 77 08/17/23 07:58 Resp 16 08/17/23 07:58 BP 103/55 08/17/23 07:58 Pulse Ox 91 L 08/17/23 07:58 FiO2 Intake & Output 08/16/23 08/17/23 08/17/23 18:59 06:59 18:59 Output Total 300 200 Balance -300 -200 Output: Urine 300 200 Other: Voiding Method Indwelling Catheter Indwelling Catheter # Voids 1 - Labs CBC & Chem 7: 08/17/23 05:53 08/17/23 05:53 Labs: Abnormal Lab Results - Last 24 Hours (Table) 08/16/23 08/16/23 08/16/23 Range/Units 05:59 11:54 16:33 RBC (3.80-5.40) m/uL Hgb (11.4-16.0) gm/dL Hct (34.0-46.0) % MCV (80.0-100.0) fL MCHC (31.0-37.0) g/dL RDW (11.5-15.5) % Carbon Dioxide 21.0 L (21.6-31.8) mmol/L BUN 47.6 H (9.0-27.0) mg/dL Creatinine 4.1 H (0.6-1.5) mg/dL Est GFR (CKD-EPI) 10 L (>=60) BUN/Creatinine Ratio 11.61 L (12.00-20.00) Ratio Glucose 123 H (70-110) mg/dL POC Glucose (mg/dL) 155 H 155 H (70-110) mg/dL Calcium 8.3 L (8.7-10.3) mg/dL 08/16/23 08/17/23 08/17/23 Range/Units 21:18 05:53 05:53 RBC 2.30 L (3.80-5.40) m/uL Hgb 7.2 L (11.4-16.0) gm/dL Hct 23.7 L (34.0-46.0) % MCV 103.1 H (80.0-100.0) fL MCHC 30.5 L (31.0-37.0) g/dL RDW 17.5 H (11.5-15.5) % Carbon Dioxide 20.1 L (21.6-31.8) mmol/L BUN 49.1 H (9.0-27.0) mg/dL Creatinine 4.2 H (0.6-1.5) mg/dL Est GFR (CKD-EPI) 10 L (>=60) BUN/Creatinine Ratio 11.69 L (12.00-20.00) Ratio Glucose 135 H (70-110) mg/dL POC Glucose (mg/dL) 168 H (70-110) mg/dL Calcium 8.1 L (8.7-10.3) mg/dL 08/17/23 08/17/23 Range/Units 06:48 11:15 RBC (3.80-5.40) m/uL Hgb (11.4-16.0) gm/dL Hct (34.0-46.0) % MCV (80.0-100.0) fL MCHC (31.0-37.0) g/dL RDW (11.5-15.5) % Carbon Dioxide (21.6-31.8) mmol/L BUN (9.0-27.0) mg/dL Creatinine (0.6-1.5) mg/dL Est GFR (CKD-EPI) (>=60) BUN/Creatinine Ratio (12.00-20.00) Ratio Glucose (70-110) mg/dL POC Glucose (mg/dL) 149 H 221 H (70-110) mg/dL Calcium (8.7-10.3) mg/dL Assessment and Plan Plan: Assessment: 1. Acute kidney injury secondary to vasomotor nephropathy from diuresis. Renal function gradually worsening with creatinine 4.2 today. Kidneys noted to be atrophic with no evidence of hydronephrosis. 2. Left knee infected wound status post [id number] amputation 08/09/2023. 3. Chronic kidney disease stage IV with baseline creatinine 2.3-2.7 secondary to diabetic kidney disease and cardiorenal syndrome. 4. Chronic diastolic CHF. 5. Anemia of chronic kidney disease. Iron deficiency noted. Receiving IV iron. Also on Aranesp. 6. Chronic kidney disease mineral bone disease maintained on calcitriol. 7. Hypertension with chronic kidney disease. Stable. 8. Diabetes mellitus. 9. Urinary retention. Akhtar catheter placed 08/11/2023. On Flomax. 10. Metabolic acidosis secondary to acute kidney injury. On oral bicarb. Plan: Status post IV Lasix given 08/14/2023 and 08/15/2023. Lasix 80 mg IV once today. Encourage oral intake. Hold hydralazine for systolic blood pressure less than 120. Avoid nephrotoxins. Continue to monitor renal function and urine output. Defer blood transfusion to primary team. Continue to assess daily for need for renal placement therapy. No urgency at this time.
[2023-08-17] MEDS: hydrALAZINE HCL 50 MG TAB PO SCH ×3 (11:52→20:33)
[2023-08-17] MEDS: NYSTATIN 100,000 UNIT/GM POWD 15 GM TOPICAL SCH ×3 (11:52→20:33)
--- NOTE | 2023-08-17 13:54 | P.PN ---
Subjective Progress Note Date: 08/17/23 Patient is an 78-year-old female with diabetes mellitus type 2, paroxysmal atrial fibrillation, Parkinson's, seizure disorder, sick sinus syndrome status post pacemaker, and chronic kidney disease stage III as well as other comorbid conditions who presented to the ER at the direction of Dr. Jones. Patient has a remote history of a left total knee replacement done an outside hospital. She ultimately developed a periprosthetic joint infection which required several attempts at infection control with placement of a static antibiotic spacer. After her last surgery she was informed by family that she would likely need an above knee amputation for infection recurred. Recently the patient developed a draining sinus over the anterior aspect of the knee will stay on her half-way when she therefore was referred to Dr. Jones. He recommended admitting the patient for possible AKA prior to her becoming systemically ill from the underlying infection. On arrival to the ER she was hypertensive with a blood pressure of 198/86. Laboratory analysis was remarkable for white blood cell count 10.7, BUN 44, creatinine 2.64. She is admitted for acute on chronic knee infection. She was started on vancomycin and Zosyn. She was seen by vascular surgery. She underwent AKA on 08/09/23. She was seen by ID and her antibiotic were optimized to cefepime and daptomycin. Currently, she has completed 7 days of Cefepime and Daptomycin. She continues to have worsening renal function, Nephrology was consulted. She was given intermittent Lasix on 08/14 and 08/15 for fluid overload. She was given 1 unit of PRBC for acute blood loss anemia. 08/16 Patient was seen and examined. She reports no complaints. CBC WBC 14.26, Hg 7.2, Hct 24.1, MCV 101.3. BMP bicab 21, BUN 47.6, C 4.1, glu 123, Ca 7.3. N ephrology recommends continuing renal function monitoring. 08/17 Patient was seen and examined. CBC Hg 7.2 Hct 23,7 MCV 103.1. BMP bicarb 20.1, BUN 49.1, Cr 4.2, glu 135, Ca 8.1. Nephrology recommends Lasix 80 mg IV x 1 today and continuing renal function monitoring. Vital signs reviewed General: nontoxic, no distress, appears at stated age Cardiovascular: S1S2 reg, no murmur Lungs: Decreased bs bilateral, no rhonchi, no rales , no accessory muscle use Abdominal: soft, nontender to palpation, no guarding, no appreciable organomegaly Ext: no gross muscle atrophy, LLE with stem section [address] no contractures Neuro: no focal neuro deficits Psych: Alert, oriented, appropriate affect Based on my assessment of this patient, this patient meets a moderate complexity level of care. 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 Completed 7 days of Cefepime and Daptomycin. Acute blood loss anemia, on chronic anemia: Anticipated outcome of surgery. Repeat CBC tomorrow morning. Transfuse if Hg < 7. Acute kidney injury on chronic kidney disease stage IV: Worsening. Nephrology on board. Received Lasix on 08/14 and 08/15. Lasix 80 mg IV x 1 today. Repeat BMP tomorrow morning. Paroxysmal atrial fibrillation, history of sick sinus syndrome status post permanent pacemaker: Coreg 25 mg by mouth twice daily. Eliquis 2.5 mg PO BID for AC. Parkinson's disease Hypertension: Coreg as above. Hydralazine 75 mg 3 times daily. Dyslipidemia: Lipitor 40 mg PO QHS. Dementia Diabetes mellitus type 2: ISS. Accuchecks ACHS. Hypoglycemic precautions. Urinary retention: Akhtar placed 08/11. CODE STATUS: DVT Prophylaxis: Eliquis GI Prophylaxis: Protonix Designated medical POA if patient is not able to make medical decisions for themselves: I have reviewed the following oncology consultant notes: Nephrology note. I have reviewed the results of the following tests: CBC, BMP. I have ordered the following tests: CBC, BMP. I have discussed the care of this patient with the following independent historian: I have independently interpreted the following test below: I have discussed the management of this patient with the following physician: Objective - Vital Signs Vital signs: Vital Signs Temp 98.4 F 08/17/23 07:58 Pulse 77 08/17/23 07:58 Resp 16 08/17/23 07:58 BP 103/55 08/17/23 07:58 Pulse Ox 91 L 08/17/23 07:58 FiO2 Intake & Output 08/16/23 08/17/23 08/17/23 18:59 06:59 18:59 Output Total 300 200 Balance -300 -200 Output: Urine 300 200 Other: Voiding Method Indwelling Catheter Indwelling Catheter # Voids 1 - Labs CBC & Chem 7: 08/17/23 05:53 08/17/23 05:53 Labs: Abnormal Lab Results - Last 24 Hours (Table) 08/16/23 08/16/23 08/17/23 Range/Units 16:33 21:18 05:53 RBC 2.30 L (3.80-5.40) m/uL Hgb 7.2 L (11.4-16.0) gm/dL Hct 23.7 L (34.0-46.0) % MCV 103.1 H (80.0-100.0) fL MCHC 30.5 L (31.0-37.0) g/dL RDW 17.5 H (11.5-15.5) % Carbon Dioxide (21.6-31.8) mmol/L BUN (9.0-27.0) mg/dL Creatinine (0.6-1.5) mg/dL Est GFR (CKD-EPI) (>=60) BUN/Creatinine Ratio (12.00-20.00) Ratio Glucose (70-110) mg/dL POC Glucose (mg/dL) 155 H 168 H (70-110) mg/dL Calcium (8.7-10.3) mg/dL 08/17/23 08/17/23 08/17/23 Range/Units 05:53 06:48 11:15 RBC (3.80-5.40) m/uL Hgb (11.4-16.0) gm/dL Hct (34.0-46.0) % MCV (80.0-100.0) fL MCHC (31.0-37.0) g/dL RDW (11.5-15.5) % Carbon Dioxide 20.1 L (21.6-31.8) mmol/L BUN 49.1 H (9.0-27.0) mg/dL Creatinine 4.2 H (0.6-1.5) mg/dL Est GFR (CKD-EPI) 10 L (>=60) BUN/Creatinine Ratio 11.69 L (12.00-20.00) Ratio Glucose 135 H (70-110) mg/dL POC Glucose (mg/dL) 149 H 221 H (70-110) mg/dL Calcium 8.1 L (8.7-10.3) mg/dL
[2023-08-17 16:06] LABS: Glucose,Whole Blood 150 mg/dL (70-110)
[2023-08-17 19:17] LABS: Glucose,Whole Blood 193 mg/dL (70-110)
[2023-08-17] MEDS: clonazePAM 0.5 MG TAB PO SCH (20:32)
[2023-08-17] MEDS: ATORVASTATIN 40 MG TAB PO SCH (20:32)
[2023-08-18 05:30] LABS: Glucose,Whole Blood 141 mg/dL (70-110)
[2023-08-18] MEDS: INSULIN ASPART (NovoLOG) 100 UNIT/ML VIAL SQ SCH ×4 (06:13→20:29)
[2023-08-18 06:33] LABS: African American GFR (CKD) 10 (>60 ml/min/1.73 sqM); Anion Gap 7 mmol/L; Blood Urea Nitrogen 54 mg/dL (7-17); Calcium 7.9 mg/dL (8.4-10.2); Carbon Dioxide 23 mmol/L (22-30); Chloride 106 mmol/L (98-107); Glucose 121 mg/dL (74-99); Non-African American GFR(CKD) 9 (>60 ml/min/1.73 sqM); Potassium 4.8 mmol/L (3.5-5.1); Sodium 136 mmol/L (137-145)
[2023-08-18 06:37] LABS: Anisocytosis Slight; HCT 23.1 % (34.0-46.0); HGB 7.2 gm/dL (11.4-16.0); Hypochromasia Marked; MCHC 31.1 g/dL (31.0-37.0); MCV 102.7 fL (80.0-100.0); Macrocytosis Moderate; Mean Platelet Volume 8.7; Platelet Count 276 k/uL (150-450); RBC 2.25 m/uL (3.80-5.40); RDW 17.9 % (11.5-15.5); WBC 11.1 k/uL (3.8-10.6)
[2023-08-18] MEDS: SERTRALINE 25 MG TAB PO SCH (08:15)
[2023-08-18] MEDS: carvediloL 12.5 MG TAB PO SCH ×2 (08:15→16:35)
[2023-08-18] MEDS: MAGNESIUM OXIDE 400 MG TAB PO SCH (08:16)
[2023-08-18] MEDS: hydrALAZINE HCL 50 MG TAB PO SCH ×3 (08:16→20:30)
[2023-08-18] MEDS: allopurinoL 300 MG TAB PO SCH (08:16)
[2023-08-18] MEDS: PANTOPRAZOLE 40 MG TABLET PO SCH (08:16)
[2023-08-18] MEDS: APIXABAN 2.5 MG TABLET PO SCH ×2 (08:16→20:32)
[2023-08-18] MEDS: TAMSULOSIN 0.4 MG CAP.ER.24H PO SCH (08:16)
[2023-08-18] MEDS: SODIUM BICARBONATE TAB 650 MG TAB PO SCH ×2 (08:16→20:32)
[2023-08-18] MEDS: GABAPENTIN 300 MG CAP PO SCH (08:16)
[2023-08-18 11:26] LABS: Glucose,Whole Blood 195 mg/dL (70-110)
--- NOTE | 2023-08-18 11:29 | P.PN ---
Subjective Patient is seen for follow-up for chronic kidney disease with acute kidney injury. Renal function is fairly stable with creatinine staying at 4.1-4.3 mg/dL which is up from her baseline creatinine of about 2.7-3 mg/dL. Being diuresed with Lasix on and off. Patient has significant lower extremity edema. Patient is not short of breath today. 24 hour urine output at 1525 mL. Indwelling Akhtar catheter present. Patient has been talked to regarding renal replacement therapy. So far renal function is stable with stable volume status. She is being monitored on a daily basis. Objective - Vital Signs Vital signs: Vital Signs Temp 98.4 F 08/18/23 06:48 Pulse 80 08/18/23 08:16 Resp 18 08/18/23 08:16 BP 120/64 08/18/23 06:48 Pulse Ox 97 08/18/23 06:48 FiO2 Intake & Output 08/17/23 08/18/23 08/18/23 18:59 06:59 18:59 Output Total 1200 325 Balance -1200 -325 Output: Urine 1200 325 Other: Voiding Method Indwelling Catheter Indwelling Catheter Indwelling Catheter - Exam Patient is awake, comfortable, no acute distress. Examination of the heart S1 and S2 Examination of the lungs bilateral breath sounds are heard Abdomen is soft obese Examination of lower extremities shows 3+ edema bilaterally PUMP MECHANIC exam grossly intact - Labs CBC & Chem 7: 08/18/23 05:39 08/18/23 05:39 Labs: Abnormal Lab Results - Last 24 Hours (Table) 08/17/23 08/17/23 08/18/23 Range/Units 16:05 19:16 05:29 WBC (3.8-10.6) k/uL RBC (3.80-5.40) m/uL Hgb (11.4-16.0) gm/dL Hct (34.0-46.0) % MCV (80.0-100.0) fL RDW (11.5-15.5) % Sodium (137-145) mmol/L BUN (7-17) mg/dL Creatinine (0.52-1.04) mg/dL Glucose (74-99) mg/dL POC Glucose (mg/dL) 150 H 193 H 141 H (70-110) mg/dL Calcium (8.4-10.2) mg/dL 08/18/23 08/18/23 Range/Units 05:39 05:39 WBC 11.1 H (3.8-10.6) k/uL RBC 2.25 L (3.80-5.40) m/uL Hgb 7.2 L (11.4-16.0) gm/dL Hct 23.1 L (34.0-46.0) % MCV 102.7 H (80.0-100.0) fL RDW 17.9 H (11.5-15.5) % Sodium 136 L (137-145) mmol/L BUN 54 H (7-17) mg/dL Creatinine 4.37 H (0.52-1.04) mg/dL Glucose 121 H (74-99) mg/dL POC Glucose (mg/dL) (70-110) mg/dL Calcium 7.9 L (8.4-10.2) mg/dL Assessment and Plan Assessment: 1. Acute kidney injury secondary to vasomotor nephropathy from diuresis. Renal function gradually worsening with creatinine 4.3 today. Kidneys noted to be atrophic with no evidence of hydronephrosis. 2. Left knee infected wound status post [id number] amputation 08/09/2023. 3. Chronic kidney disease stage IV with baseline creatinine 2.3-2.7 secondary to diabetic kidney disease and cardiorenal syndrome. 4. Chronic diastolic CHF. 5. Anemia of chronic kidney disease. Iron deficiency noted. Receiving IV iron. Also on Aranesp. 6. Chronic kidney disease mineral bone disease maintained on calcitriol. 7. Hypertension with chronic kidney disease. Stable. 8. Diabetes mellitus. 9. Urinary retention. Akhtar catheter placed 08/11/2023. On Flomax. 10. Metabolic acidosis secondary to acute kidney injury. On oral bicarb. Plan: Maintained on scheduled dose of Lasix. Patient is advised that if her renal function continues to worsen she will need to start renal replacement therapy. Patient is agreeable. No indication to start dialysis today.
[2023-08-18] MEDS: FUROSEMIDE 40 MG TAB PO SCH (11:47)
[2023-08-18] MEDS: NYSTATIN 100,000 UNIT/GM POWD 15 GM TOPICAL SCH ×3 (11:47→20:32)
--- NOTE | 2023-08-18 12:59 | P.PN ---
Subjective Progress Note Date: 08/11/23 Principal diagnosis: Reason for follow-up is recurrent left knee septic arthritis This is a telehealth visit Patient is a 78-year-old female with a past medical history pertinent for atrial fibrillation diabetes mellitus hypertension hyperlipidemia dementia patient did have a history of 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 knee that has been treated by her orthopedic surgeon with a static antibiotic spacer however the patient did have a development of a draining sinus from the left knee for the patient has been advised about the knee amputation for the patient has been admitted to the hospital, the patient is status post left [id number] amputation completed on 08/09/2023 On today's evaluation that is 08/11/2023, the patient continues to be afebrile and is breathing comfortably on room air , and patient denies chest pain shortness of breath, and no cough or sputum production, patient denies nausea/vomiting and no diarrhea has been reported, the patient pain to the left AKA site is currently controlled Patient did have white count down to 12.47, creatinine is 2.82 local cultures with MRSA and pseudomonas aeruginosa Objective - Vital Signs Vital signs: Vital Signs Temp 98.0 F 08/11/23 07:50 Pulse 91 08/11/23 07:50 Resp 19 08/11/23 07:50 BP 141/74 08/11/23 07:50 Pulse Ox 98 08/11/23 07:50 FiO2 Intake & Output 08/10/23 08/11/23 08/11/23 18:59 06:59 18:59 Intake Total 170 310 Output Total 0 800 Balance 170 -490 Intake: Intake, IV Titration 170 Amount Cefepime 1 gm In Sodium 50 Chloride 0.9% 50 ml @ 12. 5 mls/hr IVPB Q12HR HONG Rx#:[id number] Lactated Ringers 1,000 ml 120 @ 20 mls/hr IV .Q24H HONG Rx#:[id number] Blood Product 310 Rc As-1 Unit 310 [id number] Output: Urine 0 800 Straight 600 Other: Voiding Method External Catheter External Catheter # Voids 0 1 - Exam GENERAL DESCRIPTION: An elderly female lying in bed in no distress RESPIRATORY SYSTEM: Unlabored breathing , clear to auscultation anteriorly HEART: S1 S2 regular rate and rhythm , ABDOMEN: Soft , no tenderness EXTREMITIES: Left AKA stump is currently dressed - Labs CBC & Chem 7: 08/12/23 06:36 08/14/23 06:11 Labs: Abnormal Lab Results - Last 24 Hours (Table) 08/09/23 08/10/23 08/10/23 Range/Units 13:21 06:44 06:44 WBC 13.42 H (4.50-10.00) X 10*3/uL RBC 2.54 L (4.10-5.20) X 10*6/uL Hgb 7.5 L (12.0-15.0) g/dL Hct 25.5 L (37.2-46.3) % MCV 100.4 H (80.0-97.0) FL MCHC 29.4 L (32.0-37.0) g/dL RDW 16.7 H (11.5-14.5) % Immature Gran # 0.09 H (0.00-0.04) X 10*3/uL Neutrophils # 10.59 H (1.80-7.70) X 10*3/uL BUN 35.2 H (9.0-27.0) mg/dL Creatinine 2.8 H (0.6-1.5) mg/dL Est GFR (CKD-EPI) 17 L (>=60) Glucose 133 H (70-110) mg/dL POC Glucose (mg/dL) (70-110) mg/dL Calcium 8.3 L (8.7-10.3) mg/dL Crossmatch See Detail 08/10/23 08/10/23 08/10/23 Range/Units 11:27 16:42 20:38 WBC (4.50-10.00) X 10*3/uL RBC (4.10-5.20) X 10*6/uL Hgb (12.0-15.0) g/dL Hct (37.2-46.3) % MCV (80.0-97.0) FL MCHC (32.0-37.0) g/dL RDW (11.5-14.5) % Immature Gran # (0.00-0.04) X 10*3/uL Neutrophils # (1.80-7.70) X 10*3/uL BUN (9.0-27.0) mg/dL Creatinine (0.6-1.5) mg/dL Est GFR (CKD-EPI) (>=60) Glucose (70-110) mg/dL POC Glucose (mg/dL) 183 H 150 H 188 H (70-110) mg/dL Calcium (8.7-10.3) mg/dL Crossmatch 08/11/23 Range/Units 05:51 WBC (4.50-10.00) X 10*3/uL RBC (4.10-5.20) X 10*6/uL Hgb (12.0-15.0) g/dL Hct (37.2-46.3) % MCV (80.0-97.0) FL MCHC (32.0-37.0) g/dL RDW (11.5-14.5) % Immature Gran # (0.00-0.04) X 10*3/uL Neutrophils # (1.80-7.70) X 10*3/uL BUN (9.0-27.0) mg/dL Creatinine (0.6-1.5) mg/dL Est GFR (CKD-EPI) (>=60) Glucose (70-110) mg/dL POC Glucose (mg/dL) 143 H (70-110) mg/dL Calcium (8.7-10.3) mg/dL Crossmatch Microbiology - Last 24 Hours (Table) 08/07/23 12:12 Blood Culture - Preliminary Blood 08/07/23 03:23 Blood Culture - Preliminary Blood Assessment and Plan (1) Infection of knee Current Visit: Yes Status: Acute Code(s): M00.9 - PYOGENIC ARTHRITIS, UNSPECIFIED SNOMED Code(s): 791765184 (2) Leukocytosis Current Visit: No Status: Acute Code(s): D72.829 - ELEVATED WHITE BLOOD CELL COUNT, UNSPECIFIED SNOMED Code(s): 262893657 Plan: 1patient with a history of 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 knee and apparently did have multiple surgeries and has been treated with multiple courses of antibiotic now with a 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 and per deter mination by tabetic surgery patient will need left above-knee amputation in order to cure of this infection and apparently the patient and family seem to be agreeable to that for which vascular surgery has been consulted 2-blood culture has been negative and local cultures obtained and currently alayna wing MRSA and pseudomonas that was intermediate to Zosyn 3-patient to continue with the cefepime and daptomycin 4-mild leukocytosis more likely reactive post surgery and trending down to be monitored closely Dictation was produced using [employer] dictation software. please excuse any grammatical, word or spelling errors. Time with Patient: Less than 30
--- NOTE | 2023-08-18 12:59 | P.PN ---
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 that has been treated by her orthopedic surgeon with a static antibiotic spacer however the patient did have a development of a draining sinus from the left knee for the patient has been advised about the knee amputation for the patient has been admitted to the hospital, the patient is status post left [id number] amputation completed on 08/09/2023 On today's evaluation that is 08/10/2023, the patient remains to be afebrile and is breathing comfortably on room air and no need for oxygen, and patient denies chest pain shortness of breath, and no cough or sputum production, patient denies nausea/vomiting, denies having any diarrhea and no abdominal pain, the patient pain to the left AKA site is currently controlled Patient did have white count 13.4 to, creatinine is 2.8 local cultures with MRSA and pseudomonas aeruginosa Objective - Vital Signs Vital signs: Vital Signs Temp 98.1 F 08/10/23 07:04 Pulse 85 08/10/23 07:04 Resp 18 08/10/23 07:04 BP 130/67 08/10/23 07:04 Pulse Ox 95 08/10/23 07:04 FiO2 Intake & Output 08/09/23 08/10/23 08/10/23 18:59 06:59 18:59 Intake Total 1051 Output Total 1050 Balance 1 Intake: IV 1051 Output: Urine 950 Estimated Blood Loss 100 Other: Voiding Method Diaper External Catheter External Catheter External Catheter # Voids 1 # Bowel Movements 1 - Exam GENERAL DESCRIPTION: An elderly female lying in bed in no distress RESPIRATORY SYSTEM: Unlabored breathing , clear to auscultation anteriorly HEART: S1 S2 regular rate and rhythm , ABDOMEN: Soft , no tenderness EXTREMITIES: Left AKA stump is currently dressed - Labs CBC & Chem 7: 08/12/23 06:36 08/14/23 06:11 Labs: Abnormal Lab Results - Last 24 Hours (Table) 08/09/23 08/09/23 08/10/23 Range/Units 18:04 20:33 05:59 WBC (4.50-10.00) X 10*3/uL RBC (4.10-5.20) X 10*6/uL Hgb (12.0-15.0) g/dL Hct (37.2-46.3) % MCV (80.0-97.0) FL MCHC (32.0-37.0) g/dL RDW (11.5-14.5) % Immature Gran # (0.00-0.04) X 10*3/uL Neutrophils # (1.80-7.70) X 10*3/uL BUN (9.0-27.0) mg/dL Creatinine (0.6-1.5) mg/dL Est GFR (CKD-EPI) (>=60) Glucose (70-110) mg/dL POC Glucose (mg/dL) 176 H 177 H 146 H (70-110) mg/dL Calcium (8.7-10.3) mg/dL 08/10/23 08/10/23 08/10/23 Range/Units 06:44 06:44 11:27 WBC 13.42 H (4.50-10.00) X 10*3/uL RBC 2.54 L (4.10-5.20) X 10*6/uL Hgb 7.5 L (12.0-15.0) g/dL Hct 25.5 L (37.2-46.3) % MCV 100.4 H (80.0-97.0) FL MCHC 29.4 L (32.0-37.0) g/dL RDW 16.7 H (11.5-14.5) % Immature Gran # 0.09 H (0.00-0.04) X 10*3/uL Neutrophils # 10.59 H (1.80-7.70) X 10*3/uL BUN 35.2 H (9.0-27.0) mg/dL Creatinine 2.8 H (0.6-1.5) mg/dL Est GFR (CKD-EPI) 17 L (>=60) Glucose 133 H (70-110) mg/dL POC Glucose (mg/dL) 183 H (70-110) mg/dL Calcium 8.3 L (8.7-10.3) mg/dL Microbiology - Last 24 Hours (Table) 08/07/23 12:12 Blood Culture - Preliminary Blood 08/07/23 03:23 Blood Culture - Preliminary Blood Assessment and Plan (1) Infection of knee Current Visit: Yes Status: Acute Code(s): M00.9 - PYOGENIC ARTHRITIS, UNSPECIFIED SNOMED Code(s): 671180139 (2) Leukocytosis Current Visit: No Status: Acute Code(s): D72.829 - ELEVATED WHITE BLOOD CELL COUNT, UNSPECIFIED SNOMED Code(s): 102656311 Plan: 1patient with a history of 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 knee and apparently did have multiple surgeries and has been treated with multiple courses of antibiotic now with a 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 please excuse any grammatical, word or spelling errors. Time with Patient: Less than 30
--- NOTE | 2023-08-18 12:59 | P.PN ---
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 that has been treated by her orthopedic surgeon with a static antibiotic spacer however the patient did have a development of a draining sinus from the left knee for the patient has been advised about the knee amputation for the patient has been admitted to the hospital, the patient is status post left [id number] amputation completed on 08/09/2023 On today's evaluation that is 08/12/2023, the patient remains to be afebrile and is breathing comfortably on room air , and patient denies chest pain shortness of breath, denies nausea/vomiting and no diarrhea has been reported, the patient denies any worsening pain to the left AKA site Patient did have white count down to 12.1, creatinine is 3.06 local cultures with MRSA and pseudomonas aeruginosa Objective - Vital Signs Vital signs: Vital Signs Temp 97.5 F L 08/12/23 07:12 Pulse 85 08/12/23 07:12 Resp 16 08/12/23 07:12 BP 113/66 08/12/23 07:12 Pulse Ox 97 08/12/23 07:12 FiO2 Intake & Output 08/11/23 08/12/23 08/12/23 18:59 06:59 18:59 Output Total 600 200 Balance -600 -200 Output: Urine 600 200 Other: Voiding Method External Catheter Indwelling Catheter # Bowel Movements 1 1 - Exam GENERAL DESCRIPTION: An elderly female lying in bed in no distress RESPIRATORY SYSTEM: Unlabored breathing , clear to auscultation anteriorly HEART: S1 S2 regular rate and rhythm , ABDOMEN: Soft , no tenderness EXTREMITIES: Left AKA stump is currently dressed - Labs CBC & Chem 7: 08/12/23 06:36 08/14/23 06:11 Labs: Abnormal Lab Results - Last 24 Hours (Table) 08/11/23 08/11/23 08/11/23 Range/Units 06:25 10:44 11:24 WBC 12.47 H (4.50-10.00) X 10*3/uL RBC 2.75 L (4.10-5.20) X 10*6/uL Hgb 8.4 L (12.0-15.0) g/dL Hct 27.2 L (37.2-46.3) % MCV 98.9 H (80.0-97.0) FL MCHC 30.9 L (32.0-37.0) g/dL RDW 17.1 H (11.5-14.5) % Sodium 135 L (137-145) mmol/L BUN 36 H (7-17) mg/dL Creatinine 2.82 H (0.52-1.04) mg/dL Glucose 149 H (74-99) mg/dL POC Glucose (mg/dL) 164 H (70-110) mg/dL Calcium 7.7 L (8.4-10.2) mg/dL 08/11/23 08/11/23 08/12/23 Range/Units 16:30 20:41 06:04 WBC (4.50-10.00) X 10*3/uL RBC (4.10-5.20) X 10*6/uL Hgb (12.0-15.0) g/dL Hct (37.2-46.3) % MCV (80.0-97.0) FL MCHC (32.0-37.0) g/dL RDW (11.5-14.5) % Sodium (137-145) mmol/L BUN (7-17) mg/dL Creatinine (0.52-1.04) mg/dL Glucose (74-99) mg/dL POC Glucose (mg/dL) 174 H 162 H 150 H (70-110) mg/dL Calcium (8.4-10.2) mg/dL 08/12/23 08/12/23 Range/Units 06:36 06:36 WBC 12.1 H (4.50-10.00) X 10*3/uL RBC 2.75 L (4.10-5.20) X 10*6/uL Hgb 8.5 L (12.0-15.0) g/dL Hct 27.3 L (37.2-46.3) % MCV (80.0-97.0) FL MCHC (32.0-37.0) g/dL RDW 17.1 H (11.5-14.5) % Sodium (137-145) mmol/L BUN 38 H (7-17) mg/dL Creatinine 3.06 H (0.52-1.04) mg/dL Glucose 125 H (74-99) mg/dL POC Glucose (mg/dL) (70-110) mg/dL Calcium 7.8 L (8.4-10.2) mg/dL Assessment and Plan (1) Infection of knee Current Visit: Yes Status: Acute Code(s): M00.9 - PYOGENIC ARTHRITIS, UNSPECIFIED SNOMED Code(s): 564618196 (2) Leukocytosis Current Visit: No Status: Acute Code(s): D72.829 - ELEVATED WHITE BLOOD CELL COUNT, UNSPECIFIED SNOMED Code(s): 717349417 Plan: 1patient with a history of 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 knee and apparently did have multiple surgeries and has been treated with multiple courses of antibiotic now with a 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 please excuse any grammatical, word or spelling errors. Time with Patient: Less than 30
--- NOTE | 2023-08-18 13:00 | P.PN ---
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 that has been treated by her orthopedic surgeon with a static antibiotic spacer however the patient did have a development of a draining sinus from the left knee for the patient has been advised about the knee amputation for the patient has been admitted to the hospital, the patient is status post left [id number] amputation completed on 08/09/2023 On today's evaluation that is 08/13/2023, the patient continues to be afebrile and is breathing comfortably on room air without need for supplemental oxygen , and patient denies chest pain shortness of breath, the patient denies nausea/vomiting and no diarrhea has been reported, the patient pain to the left AKA site currently controlled Patient did have white count down to 12.1 as of 08/12/2023, creatinine is 3.06 local cultures with MRSA and pseudomonas aeruginosa Objective - Vital Signs Vital signs: Vital Signs Temp 98.3 F 08/13/23 07:22 Pulse 84 08/13/23 07:22 Resp 17 08/13/23 07:22 BP 119/68 08/13/23 07:22 Pulse Ox 94 L 08/13/23 07:22 FiO2 Intake & Output 08/12/23 08/13/23 08/13/23 18:59 06:59 18:59 Output Total 300 450 Balance -300 -450 Output: Urine 300 450 Other: Voiding Method Indwelling Catheter Indwelling Catheter Indwelling Catheter # Bowel Movements 1 - Exam GENERAL DESCRIPTION: An elderly female lying in bed in no distress RESPIRATORY SYSTEM: Unlabored breathing , clear to auscultation anteriorly HEART: S1 S2 regular rate and rhythm , ABDOMEN: Soft , no tenderness EXTREMITIES: Left AKA stump is currently dressed - Labs CBC & Chem 7: 08/12/23 06:36 08/14/23 06:11 Labs: Abnormal Lab Results - Last 24 Hours (Table) 08/12/23 08/12/23 08/12/23 Range/Units 06:36 16:10 19:17 BUN (9.0-27.0) mg/dL Creatinine (0.6-1.5) mg/dL Est GFR (CKD-EPI) (>=60) BUN/Creatinine Ratio (12.00-20.00) Ratio Glucose (70-110) mg/dL POC Glucose (mg/dL) 167 H 154 H (70-110) mg/dL Calcium (8.7-10.3) mg/dL Iron 21 L (50-170) UG/DL TIBC 178 L (228-460) UG/DL % Saturation 11.80 L (12.00-45.00) Transferrin 127.0 L (204.0-354.0) mg/dL Ferritin 330.0 H (10.0-291.0) ng/mL 08/13/23 08/13/23 08/13/23 Range/Units 05:43 06:08 11:18 BUN 38.0 H (9.0-27.0) mg/dL Creatinine 3.5 H (0.6-1.5) mg/dL Est GFR (CKD-EPI) 13 L (>=60) BUN/Creatinine Ratio 10.86 L (12.00-20.00) Ratio Glucose 136 H (70-110) mg/dL POC Glucose (mg/dL) 166 H 166 H (70-110) mg/dL Calcium 8.1 L (8.7-10.3) mg/dL Iron (50-170) UG/DL TIBC (228-460) UG/DL % Saturation (12.00-45.00) Transferrin (204.0-354.0) mg/dL Ferritin (10.0-291.0) ng/mL Microbiology - Last 24 Hours (Table) 08/07/23 12:12 Blood Culture - Final Blood 08/07/23 03:23 Blood Culture - Final Blood Assessment and Plan (1) Infection of knee Current Visit: Yes Status: Acute Code(s): M00.9 - PYOGENIC ARTHRITIS, UNSPECIFIED SNOMED Code(s): 379438588 (2) Leukocytosis Current Visit: No Status: Acute Code(s): D72.829 - ELEVATED WHITE BLOOD CELL COUNT, UNSPECIFIED SNOMED Code(s): 576272840 Plan: 1patient with a history of 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 knee and apparently did have multiple surgeries and has been treated with multiple courses of antibiotic now with a 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 the patient remains to be afebrile Dictation was produced using [employer] dictation software. please excuse any grammatical, word or spelling errors. Time with Patient: Less than 30
--- NOTE | 2023-08-18 13:04 | P.PN ---
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 that has been treated by her orthopedic surgeon with a static antibiotic spacer however the patient did have a development of a draining sinus from the left knee for the patient has been advised about the knee amputation for the patient has been admitted to the hospital, the patient is status post left [id number] amputation completed on 08/09/2023 On today's evaluation that is 08/15/2023 the patient continues to be afebrile, the patient is breathing comfortably on room air without need for oxygen, the patient denies having any chest pain or cough and no sputum production, patient denies nausea vomiting or any diarrhea, and no abdominal pain the patient pain to the left AKA site currently controlled Patient did have white 12.1 as of 08/12/2023 , no CBC was done today, creatinine is 3.75 Objective - Vital Signs Vital signs: Vital Signs Temp 97.9 F 08/15/23 07:08 Pulse 86 08/15/23 07:08 Resp 17 08/15/23 07:08 BP 112/58 08/15/23 07:08 Pulse Ox 100 08/15/23 07:08 FiO2 Intake & Output 08/14/23 08/15/23 08/15/23 18:59 06:59 18:59 Intake Total 500 100 Output Total 520 Balance 500 -420 Intake: Intake, IV Titration 100 100 Amount Sodium Ferric Gluconat- 100 100 Sucrose 125 mg In Sodium Chloride 0.9% 100 ml @ 100 mls/hr IVPB DAILY [facility] Rx#:[id number] Oral 400 Output: Urine 520 Other: Voiding Method Indwelling Catheter Indwelling Catheter Indwelling Catheter # Bowel Movements 1 - Exam GENERAL DESCRIPTION: An elderly female lying in bed in no distress RESPIRATORY SYSTEM: Unlabored breathing , clear to auscultation anteriorly HEART: S1 S2 regular rate and rhythm , ABDOMEN: Soft , no tenderness EXTREMITIES: Left AKA stump is currently dressed - Labs CBC & Chem 7: 08/18/23 05:39 08/18/23 05:39 Labs: Abnormal Lab Results - Last 24 Hours (Table) 08/14/23 08/14/23 08/14/23 Range/Units 06:11 11:31 16:40 BUN 40.4 H (9.0-27.0) mg/dL Creatinine 3.7 H (0.6-1.5) mg/dL Est GFR (CKD-EPI) 12 L (>=60) BUN/Creatinine Ratio 10.92 L (12.00-20.00) Ratio Glucose 131 H (70-110) mg/dL POC Glucose (mg/dL) 169 H 137 H (70-110) mg/dL Calcium 8.2 L (8.7-10.3) mg/dL 08/14/23 08/15/23 Range/Units 20:21 05:40 BUN (9.0-27.0) mg/dL Creatinine (0.6-1.5) mg/dL Est GFR (CKD-EPI) (>=60) BUN/Creatinine Ratio (12.00-20.00) Ratio Glucose (70-110) mg/dL POC Glucose (mg/dL) 145 H 123 H (70-110) mg/dL Calcium (8.7-10.3) mg/dL Assessment and Plan (1) Infection of knee Current Visit: Yes Status: Acute Code(s): M00.9 - PYOGENIC ARTHRITIS, UNSPECIFIED SNOMED Code(s): 590906108 (2) Leukocytosis Current Visit: No Status: Acute Code(s): D72.829 - ELEVATED WHITE BLOOD CELL COUNT, UNSPECIFIED SNOMED Code(s): 752198210 Plan: 1patient with a history of 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 knee and apparently did have multiple surgeries and has been treated with multiple courses of antibiotic now with a 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 and per determination by tabetic surgery patient will need left above-knee amputation in order to cure of this infection and apparently the patient and family seem to be agreeable to that for which vascular surgery has been consulted 2-blood culture has been negative and local cultures obtained and currently growing MRSA and pseudomonas that was intermediate to Zosyn 3--mild leukocytosis more likely reactive post surgery as infected part was removed and the patient was not bacteremic, The patient cefepime has been discontinued and is currently being monitored closely off antibiotic therapy Dictation was produced using [employer] software. please excuse any grammatical, word or spelling errors. Time with Patient: Less than 30
--- NOTE | 2023-08-18 13:05 | P.PN ---
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 that has been treated by her orthopedic surgeon with a static antibiotic spacer however the patient did have a development of a draining sinus from the left knee for the patient has been advised about the knee amputation for the patient has been admitted to the hospital, the patient is status post left [id number] amputation completed on 08/09/2023 On today's evaluation that is 08/16/2023, the patient denies any fever or any chills, the patient is breathing comfortably on room air, patient denies chest pain shortness of breath, or cough, patient denies Abdominal pain and denies any nausea/vomiting or diarrhea the patient denies any worsening pain to the left AKA site Patient did have white a slightly up to 14.26 today, creatinine is 4.1 Objective - Vital Signs Vital signs: Vital Signs Temp 98.3 F 08/16/23 07:39 Pulse 78 08/16/23 07:40 Resp 18 08/16/23 07:40 BP 157/84 08/16/23 07:39 Pulse Ox 98 08/16/23 07:39 FiO2 Intake & Output 08/15/23 08/16/23 08/16/23 18:59 06:59 18:59 Output Total 300 Balance -300 Weight 83.7 kg Output: Urine 300 Other: Voiding Method Indwelling Catheter Indwelling Catheter Indwelling Catheter # Bowel Movements 1 - Exam GENERAL DESCRIPTION: An elderly female lying in bed in no distress RESPIRATORY SYSTEM: Unlabored breathing , clear to auscultation anteriorly HEART: S1 S2 regular rate and rhythm , ABDOMEN: Soft , no tenderness EXTREMITIES: Left AKA stump is currently dressed - Labs CBC & Chem 7: 08/18/23 05:39 08/18/23 05:39 Labs: Abnormal Lab Results - Last 24 Hours (Table) 08/15/23 08/15/23 08/15/23 Range/Units 11:55 16:35 20:28 WBC (4.50-10.00) X 10*3/uL RBC (4.10-5.20) X 10*6/uL Hgb (12.0-15.0) g/dL Hct (37.2-46.3) % MCV (80.0-97.0) FL MCHC (32.0-37.0) g/dL RDW (11.5-14.5) % Carbon Dioxide (21.6-31.8) mmol/L BUN 44 H (7-17) mg/dL Creatinine 3.75 H (0.52-1.04) mg/dL Est GFR (CKD-EPI) (>=60) BUN/Creatinine Ratio (12.00-20.00) Ratio Glucose 123 H (74-99) mg/dL POC Glucose (mg/dL) 218 H 180 H (70-110) mg/dL Calcium 8.2 L (8.4-10.2) mg/dL 08/16/23 08/16/23 08/16/23 Range/Units 05:21 05:59 05:59 WBC 14.26 H (4.50-10.00) X 10*3/uL RBC 2.38 L (4.10-5.20) X 10*6/uL Hgb 7.2 L (12.0-15.0) g/dL Hct 24.1 L (37.2-46.3) % MCV 101.3 H (80.0-97.0) FL MCHC 29.9 L (32.0-37.0) g/dL RDW 17.0 H (11.5-14.5) % Carbon Dioxide 21.0 L (21.6-31.8) mmol/L BUN 47.6 H (7-17) mg/dL Creatinine 4.1 H (0.52-1.04) mg/dL Est GFR (CKD-EPI) 10 L (>=60) BUN/Creatinine Ratio 11.61 L (12.00-20.00) Ratio Glucose 123 H (74-99) mg/dL POC Glucose (mg/dL) 161 H (70-110) mg/dL Calcium 8.3 L (8.4-10.2) mg/dL 08/16/23 Range/Units 11:54 WBC (4.50-10.00) X 10*3/uL RBC (4.10-5.20) X 10*6/uL Hgb (12.0-15.0) g/dL Hct (37.2-46.3) % MCV (80.0-97.0) FL MCHC (32.0-37.0) g/dL RDW (11.5-14.5) % Carbon Dioxide (21.6-31.8) mmol/L BUN (7-17) mg/dL Creatinine (0.52-1.04) mg/dL Est GFR (CKD-EPI) (>=60) BUN/Creatinine Ratio (12.00-20.00) Ratio Glucose (74-99) mg/dL POC Glucose (mg/dL) 155 H (70-110) mg/dL Calcium (8.4-10.2) mg/dL Assessment and Plan (1) Infection of knee Current Visit: Yes Status: Acute Code(s): M00.9 - PYOGENIC ARTHRITIS, UNSPECIFIED SNOMED Code(s): 464838120 (2) Leukocytosis Current Visit: No Status: Acute Code(s): D72.829 - ELEVATED WHITE BLOOD CELL COUNT, UNSPECIFIED SNOMED Code(s): 239723176 Plan: 1patient with a history of 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 knee and apparently did have multiple surgeries and has been treated with multiple courses of antibiotic now with a 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 and per determination by tabetic surgery patient will need left above-knee amputation in order to cure of this infection and apparently the patient and family seem to be agreeable to that for which vascular surgery has been consulted 2-blood culture has been negative and local cultures obtained and currently growing MRSA and pseudomonas that was intermediate to Zosyn 3--mild leukocytosis more likely reactive post surgery , patient did have slight elevation of the white count that her monitor today to the patient's spike any fever or any worsening leukocytosis, will reculture and antibiotic will be restarted Dictation was produced using [employer] dictation software. please excuse any grammatical, word or spelling errors. Time with Patient: Less than 30
--- NOTE | 2023-08-18 13:07 | P.PN ---
Subjective Progress Note Date: 08/17/23 Principal diagnosis: Reason for follow-up is recurrent left knee septic arthritis Patient is a 78-year-old female with a past medical history pertinent for atrial fibrillation diabetes mellitus hypertension hyperlipidemia dementia patient did have a history of 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 knee that has been treated by her orthopedic surgeon with a static antibiotic spacer however the patient did have a development of a draining sinus from the left knee for the patient has been advised about the knee amputation for the patient has been admitted to the hospital, the patient is status post left [id number] amputation completed on 08/09/2023 On today's evaluation that is 08/17/2023 the patient remains to be afebrile, patient is breathing comfortably on room air without need for supplemental oxygen patient denies any chest pain or cough no nausea vomiting no abdominal pain or diarrhea Patient white count normalized to 10.0, creatinine 4.2 Objective - Vital Signs Vital signs: Vital Signs Temp 98.4 F 08/17/23 07:58 Pulse 77 08/17/23 07:58 Resp 16 08/17/23 07:58 BP 103/55 08/17/23 07:58 Pulse Ox 91 L 08/17/23 07:58 FiO2 Intake & Output 08/16/23 08/17/23 08/17/23 18:59 06:59 18:59 Output Total 300 200 Balance -300 -200 Output: Urine 300 200 Other: Voiding Method Indwelling Catheter Indwelling Catheter # Voids 1 - Exam GENERAL DESCRIPTION: An elderly female lying in bed in no distress RESPIRATORY SYSTEM: Unlabored breathing , clear to auscultation anteriorly HEART: S1 S2 regular rate and rhythm , ABDOMEN: Soft , no tenderness EXTREMITIES: Left AKA stump is currently dressed - Labs CBC & Chem 7: 08/18/23 05:39 08/18/23 05:39 Labs: Abnormal Lab Results - Last 24 Hours (Table) 08/16/23 08/16/23 08/16/23 Range/Units 05:59 11:54 16:33 RBC (3.80-5.40) m/uL Hgb (11.4-16.0) gm/dL Hct (34.0-46.0) % MCV (80.0-100.0) fL MCHC (31.0-37.0) g/dL RDW (11.5-15.5) % Carbon Dioxide 21.0 L (21.6-31.8) mmol/L BUN 47.6 H (9.0-27.0) mg/dL Creatinine 4.1 H (0.6-1.5) mg/dL Est GFR (CKD-EPI) 10 L (>=60) BUN/Creatinine Ratio 11.61 L (12.00-20.00) Ratio Glucose 123 H (70-110) mg/dL POC Glucose (mg/dL) 155 H 155 H (70-110) mg/dL Calcium 8.3 L (8.7-10.3) mg/dL 08/16/23 08/17/23 08/17/23 Range/Units 21:18 05:53 05:53 RBC 2.30 L (3.80-5.40) m/uL Hgb 7.2 L (11.4-16.0) gm/dL Hct 23.7 L (34.0-46.0) % MCV 103.1 H (80.0-100.0) fL MCHC 30.5 L (31.0-37.0) g/dL RDW 17.5 H (11.5-15.5) % Carbon Dioxide 20.1 L (21.6-31.8) mmol/L BUN 49.1 H (9.0-27.0) mg/dL Creatinine 4.2 H (0.6-1.5) mg/dL Est GFR (CKD-EPI) 10 L (>=60) BUN/Creatinine Ratio 11.69 L (12.00-20.00) Ratio Glucose 135 H (70-110) mg/dL POC Glucose (mg/dL) 168 H (70-110) mg/dL Calcium 8.1 L (8.7-10.3) mg/dL 08/17/23 Range/Units 06:48 RBC (3.80-5.40) m/uL Hgb (11.4-16.0) gm/dL Hct (34.0-46.0) % MCV (80.0-100.0) fL MCHC (31.0-37.0) g/dL RDW (11.5-15.5) % Carbon Dioxide (21.6-31.8) mmol/L BUN (9.0-27.0) mg/dL Creatinine (0.6-1.5) mg/dL Est GFR (CKD-EPI) (>=60) BUN/Creatinine Ratio (12.00-20.00) Ratio Glucose (70-110) mg/dL POC Glucose (mg/dL) 149 H (70-110) mg/dL Calcium (8.7-10.3) mg/dL Assessment and Plan (1) Infection of knee Current Visit: Yes Status: Acute Code(s): M00.9 - PYOGENIC ARTHRITIS, UNSPECIFIED SNOMED Code(s): 687065523 (2) Leukocytosis Current Visit: No Status: Acute Code(s): D72.829 - ELEVATED WHITE BLOOD CELL COUNT, UNSPECIFIED SNOMED Code(s): 342336759 Plan: 1patient with a history of 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 knee and apparently did have multiple surgeries and has been treated with multiple courses of antibiotic now with a 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 and per determination by tabetic surgery patient will need left above-knee amputation in order to cure of this infection and apparently the patient and family seem to be agreeable to that for which vascular surgery has been consulted 2-blood culture has been negative and local cultures obtained and currently growing MRSA and pseudomonas that was intermediate to Zosyn 3--mild leukocytosis more likely reactive post surgery , The patient white count has normalized today and the patient not running any fever hence we will monitor the patient closely off antibiotics family at the bedside multiple questions concern answered Dictation was produced using [employer] dictation software. please excuse any grammatical, word or spelling errors. Time with Patient: Less than 30
--- NOTE | 2023-08-18 13:09 | P.PN ---
Subjective Progress Note Date: 08/18/23 Principal diagnosis: Reason for follow-up is recurrent left knee septic arthritis Patient is a 78-year-old female with a past medical history pertinent for atrial fibrillation diabetes mellitus hypertension hyperlipidemia dementia patient did have a history of 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 knee that has been treated by her orthopedic surgeon with a static antibiotic spacer however the patient did have a development of a draining sinus from the left knee for the patient has been advised about the knee amputation for the patient has been admitted to the hospital, the patient is status post left [id number] amputation completed on 08/09/2023 On today's evaluation that is 08/18/2023 the patient continues to be afebrile the patient is breathing comfortably on room air currently satting 97% patient denies any chest pain or cough no vomiting diarrhea or any other changes reported by the nursing staff. Patient did have a white count of 11.1 creatinine is 4.37 Objective - Vital Signs Vital signs: Vital Signs Temp 98.4 F 08/18/23 06:48 Pulse 80 08/18/23 08:16 Resp 18 08/18/23 08:16 BP 120/64 08/18/23 06:48 Pulse Ox 97 08/18/23 06:48 FiO2 Intake & Output 08/17/23 08/18/23 08/18/23 18:59 06:59 18:59 Output Total 1200 325 Balance -1200 -325 Output: Urine 1200 325 Other: Voiding Method Indwelling Catheter Indwelling Catheter Indwelling Catheter - Exam GENERAL DESCRIPTION: An elderly female lying in bed in no distress RESPIRATORY SYSTEM: Unlabored breathing , clear to auscultation anteriorly HEART: S1 S2 regular rate and rhythm , ABDOMEN: Soft , no tenderness EXTREMITIES: Left AKA stump is currently dressed - Labs CBC & Chem 7: 08/18/23 05:39 08/18/23 05:39 Labs: Abnormal Lab Results - Last 24 Hours (Table) 08/17/23 08/17/23 08/18/23 Range/Units 16:05 19:16 05:29 WBC (3.8-10.6) k/uL RBC (3.80-5.40) m/uL Hgb (11.4-16.0) gm/dL Hct (34.0-46.0) % MCV (80.0-100.0) fL RDW (11.5-15.5) % Sodium (137-145) mmol/L BUN (7-17) mg/dL Creatinine (0.52-1.04) mg/dL Glucose (74-99) mg/dL POC Glucose (mg/dL) 150 H 193 H 141 H (70-110) mg/dL Calcium (8.4-10.2) mg/dL 08/18/23 08/18/23 08/18/23 Range/Units 05:39 05:39 11:25 WBC 11.1 H (3.8-10.6) k/uL RBC 2.25 L (3.80-5.40) m/uL Hgb 7.2 L (11.4-16.0) gm/dL Hct 23.1 L (34.0-46.0) % MCV 102.7 H (80.0-100.0) fL RDW 17.9 H (11.5-15.5) % Sodium 136 L (137-145) mmol/L BUN 54 H (7-17) mg/dL Creatinine 4.37 H (0.52-1.04) mg/dL Glucose 121 H (74-99) mg/dL POC Glucose (mg/dL) 195 H (70-110) mg/dL Calcium 7.9 L (8.4-10.2) mg/dL Assessment and Plan (1) Infection of knee Current Visit: Yes Status: Acute Code(s): M00.9 - PYOGENIC ARTHRITIS, UNSPECIFIED SNOMED Code(s): 393874025 (2) Leukocytosis Current Visit: No Status: Acute Code(s): D72.829 - ELEVATED WHITE BLOOD CELL COUNT, UNSPECIFIED SNOMED Code(s): 371017349 Plan: 1patient with a history of 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 knee and apparently did have multiple surgeries and has been treated with multiple courses of antibiotic now with a 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 and per determination by tabetic surgery patient will need left above-knee amputation in order to cure of this infection and apparently the patient and family seem to be agreeable to that for which vascular surgery has been consulted 2-blood culture has been negative and local cultures obtained and currently growing MRSA and pseudomonas that was intermediate to Zosyn 3--mild leukocytosis more likely reactive post surgery , As the patient is not running any fever does not look toxic and infected port was removed patient white count normalized yesterday slightly updated 11.1 and will be monitored closely off antibiotic therapy Dictation was produced using [employer] dictation software. please excuse any grammatical, word or spelling errors. Time with Patient: Less than 30
[2023-08-18 16:23] LABS: Glucose,Whole Blood 186 mg/dL (70-110)
--- NOTE | 2023-08-18 18:04 | P.PN ---
Subjective Progress Note Date: 08/18/23 Hospital course: Patient is a 78-year-old female with a past medical history of CAD, sick sinus syndrome status post AICD placement, paroxysmal atrial fibrillation on anticoagulation, hypertension, hyperlipidemia, type 2 insulin-dependent diabetes mellitus, and stage IV chronic kidney disease. Patient was transferred to our facility on 08/06/23 from [facility] secondary to concerns of infected left lower extremity ulcer. 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 Wound culture obtained from left knee positive for pseudomonas aeruginosa and MRSA. Patient with persistent worsening renal function and acute blood loss anemia and anemia of chronic disease. Physical exam: Patient seen and fully evaluated at bedside this morning. She currently denies having any new complaints or concerns at this time. She appeared to be resting comfortably. Vital signs reviewed and stable. General: Nontoxic, no distress and appears stated age. Obese. Derm: Skin warm and dry, normal coloration for ethnicity. Head: Atraumatic, normocephalic and symmetric. Eyes: EOMs intact, no lid lag, and anicteric sclera Mouth: no lip lesions, mucus membranes moist Cardiovascular: regular rate and rhythm with normal S1S2, systolic murmur, Lungs: Respirations even, regular, and unlabored on room air. Lungs CTA bilaterally, no rhonchi, no rales, no wheezing, and no accessory muscle usage. Abdominal: Obese abdomen soft, nontender to palpation, no guarding, no appreciable organomegaly Akhtar catheter in place.. Ext: No gross muscle atrophy, no edema, no contractures. Left AKA with dressing intact. Neuro: Speech clear, face symmetrical and CN II-XII grossly intact with no noted focal neuro deficits Psych: Alert and oriented to person, place, time, and situation. Appropriate and pleasant affect. Assessment and Plan of Care: Acute kidney injury on chronic kidney disease stage IV: Worsening. Urinary retention. -Nephrology following review documentation in chart. -Akhtar catheter was inserted, continue Akhtar management -Started patient on Lasix 40 mg daily. -Continue strict I's and O's, patient has had 1525 mL of output over the past 24 hours. 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 Completed 7 days of Cefepime and Daptomycin. -Vascular surgery recommending dressing change daily cleaning with Betadine solution, apply Kerlix and stump supervisory training specialist with rigid dressing. Acute blood loss anemia, on chronic anemia: -Anticipated outcome of surgery. Hemoglobin remained stable at 7.2. Repeat CBC tomorrow morning. Transfuse if Hg < 7. Paroxysmal atrial fibrillation, history of sick sinus syndrome status post permanent pacemaker: -Continue daily medication regimen with Coreg 25 mg by mouth twice daily and Eliquis 2.5 mg PO BID Type 2 insulin-dependent diabetes mellitus. -Continue glycemic protocol with NovoLog sliding scale. Hypertension: -Continue daily medication regimen with Coreg 5 mg twice daily and. Hydralazine 75 mg 3 times daily. Dyslipidemia: -Continue daily medication regimen with Lipitor 40 mg nightly. Parkinson's disease with reports of underlying mild Dementia. -Provide safe and supportive care and assistance as needed. Data reviewed: Labs reviewed. CBC showing leukocytosis with WBC count of 11.1 and stable macrocytic anemia with hemoglobin of 7.2. BMP revealing worsening renal function with BUN of 54, creatinine 4.37, GFR of 9. Vital signs reviewed. Blood pressure 120/64, heart rate 77, respiratory rate 18, temp 98.4F, and SpO2 of 97% on room air. DVT prophylaxis: Eliquis Anticipated discharge date: Clinical course to determine Anticipated discharge place: Clinical course to determine Patient was seen independently by Nurse Pracitioner. This document was prepared using [employer] dictation software. Please allow for errors in bail bondsman, while rare they do occur. Ney Gibson NP rendered care for this patient independently, reviewed the findings and plan as documented in the note above. I did not physically speak with or examine the patient on this date. Objective - Vital Signs Vital signs: Vital Signs Temp 98.4 F 08/18/23 06:48 Pulse 80 08/18/23 08:16 Resp 18 08/18/23 08:16 BP 120/64 08/18/23 06:48 Pulse Ox 97 08/18/23 06:48 FiO2 Intake & Output 08/17/23 08/18/23 08/18/23 18:59 06:59 18:59 Output Total 1200 325 Balance -1200 -325 Output: Urine 1200 325 Other: Voiding Method Indwelling Catheter Indwelling Catheter Indwelling Catheter - Labs CBC & Chem 7: 12/18/23 06:52 08/20/23 06:52 Labs: Abnormal Lab Results - Last 24 Hours (Table) 08/17/23 08/17/23 08/17/23 Range/Units 11:15 16:05 19:16 WBC (3.8-10.6) k/uL RBC (3.80-5.40) m/uL Hgb (11.4-16.0) gm/dL Hct (34.0-46.0) % MCV (80.0-100.0) fL RDW (11.5-15.5) % Sodium (137-145) mmol/L BUN (7-17) mg/dL Creatinine (0.52-1.04) mg/dL Glucose (74-99) mg/dL POC Glucose (mg/dL) 221 H 150 H 193 H (70-110) mg/dL Calcium (8.4-10.2) mg/dL 08/18/23 08/18/23 08/18/23 Range/Units 05:29 05:39 05:39 WBC 11.1 H (3.8-10.6) k/uL RBC 2.25 L (3.80-5.40) m/uL Hgb 7.2 L (11.4-16.0) gm/dL Hct 23.1 L (34.0-46.0) % MCV 102.7 H (80.0-100.0) fL RDW 17.9 H (11.5-15.5) % Sodium 136 L (137-145) mmol/L BUN 54 H (7-17) mg/dL Creatinine 4.37 H (0.52-1.04) mg/dL Glucose 121 H (74-99) mg/dL POC Glucose (mg/dL) 141 H (70-110) mg/dL Calcium 7.9 L (8.4-10.2) mg/dL
[2023-08-18] MEDS: HYDROcodone/APAP 5-325MG 1 EACH TAB PO PRN (18:17)
[2023-08-18 19:13] LABS: Glucose,Whole Blood 204 mg/dL (70-110)
[2023-08-18] MEDS: LACTATED RINGERS 1,000 ML IV SCH (19:17)
[2023-08-18] MEDS: clonazePAM 0.5 MG TAB PO SCH (20:30)
[2023-08-18] MEDS: ATORVASTATIN 40 MG TAB PO SCH (20:31)
[2023-08-19] MEDS: HYDROcodone/APAP 5-325MG 1 EACH TAB PO PRN ×3 (01:44→15:38)
[2023-08-19 05:51] LABS: Glucose,Whole Blood 156 mg/dL (70-110)
[2023-08-19] MEDS: INSULIN ASPART (NovoLOG) 100 UNIT/ML VIAL SQ SCH ×4 (06:35→20:46)
[2023-08-19] MEDS: SODIUM BICARBONATE TAB 650 MG TAB PO SCH ×2 (08:09→20:45)
[2023-08-19] MEDS: FUROSEMIDE 40 MG TAB PO SCH (08:09)
[2023-08-19] MEDS: APIXABAN 2.5 MG TABLET PO SCH ×2 (08:09→20:46)
[2023-08-19] MEDS: TAMSULOSIN 0.4 MG CAP.ER.24H PO SCH (08:09)
[2023-08-19] MEDS: PANTOPRAZOLE 40 MG TABLET PO SCH (08:09)
[2023-08-19] MEDS: SERTRALINE 25 MG TAB PO SCH (08:09)
[2023-08-19] MEDS: hydrALAZINE HCL 50 MG TAB PO SCH ×3 (08:09→20:45)
[2023-08-19] MEDS: GABAPENTIN 300 MG CAP PO SCH (08:09)
[2023-08-19] MEDS: NYSTATIN 100,000 UNIT/GM POWD 15 GM TOPICAL SCH ×3 (08:09→20:47)
[2023-08-19] MEDS: MAGNESIUM OXIDE 400 MG TAB PO SCH (08:09)
[2023-08-19] MEDS: allopurinoL 300 MG TAB PO SCH (08:09)
[2023-08-19] MEDS: carvediloL 12.5 MG TAB PO SCH ×2 (08:10→17:05)
--- NOTE | 2023-08-19 11:15 | P.PN ---
Subjective Patient is seen for follow-up for chronic kidney disease with acute kidney injury. Renal function is fairly stable with creatinine staying at 4.1-4.3 mg/dL which is up from her baseline creatinine of about 2.7-3 mg/dL. Being diuresed with Lasix on and off. Patient has significant lower extremity edema. Patient is not short of breath today. 24 hour urine output at 1525 mL. Indwelling Akhtar catheter present. Patient has been talked to regarding renal replacement therapy. So far renal function is stable with stable volume status. She is being monitored on a daily basis. Objective - Vital Signs Vital signs: Vital Signs Temp 97.8 F 08/19/23 06:59 Pulse 78 08/19/23 08:10 Resp 18 08/19/23 08:10 BP 116/65 08/19/23 06:59 Pulse Ox 100 08/19/23 06:59 FiO2 Intake & Output 08/18/23 08/19/23 08/19/23 18:59 06:59 18:59 Output Total 300 325 Balance -300 -325 Output: Urine 300 325 Other: Voiding Method Indwelling Catheter Indwelling Catheter Indwelling Catheter # Bowel Movements 1 - Exam Patient is awake, comfortable, no acute distress. Examination of the heart S1 and S2 Examination of the lungs bilateral breath sounds are heard Abdomen is soft obese Examination of lower extremities shows 3+ edema bilaterally SACK SEWER exam grossly intact - Labs CBC & Chem 7: 08/18/23 05:39 08/18/23 05:39 Labs: Abnormal Lab Results - Last 24 Hours (Table) 08/18/23 08/18/23 08/18/23 Range/Units 11:25 16:21 19:12 POC Glucose (mg/dL) 195 H 186 H 204 H (70-110) mg/dL 08/19/23 Range/Units 05:50 POC Glucose (mg/dL) 156 H (70-110) mg/dL Assessment and Plan Assessment: 1. Acute kidney injury secondary to vasomotor nephropathy from diuresis. Renal function gradually worsening with creatinine 4.3 today. Kidneys noted to be atrophic with no evidence of hydronephrosis. 2. Left knee infected wound status post [id number] amputation 08/09/2023. 3. Chronic kidney disease stage IV with baseline creatinine 2.3-2.7 secondary to diabetic kidney disease and cardiorenal syndrome. 4. Chronic diastolic CHF. 5. Anemia of chronic kidney disease. Iron deficiency noted. Receiving IV iron. Also on Aranesp. 6. Chronic kidney disease mineral bone disease maintained on calcitriol. 7. Hypertension with chronic kidney disease. Stable. 8. Diabetes mellitus. 9. Urinary retention. Akhtar catheter placed 08/11/2023. On Flomax. 10. Metabolic acidosis secondary to acute kidney injury. On oral bicarb. Plan: Maintain on scheduled dose of Lasix. Patient is advised that if her renal function continues to worsen she will need to start renal replacement therapy. Patient is agreeable. No indication to start dialysis today.
[2023-08-19 11:48] LABS: Glucose,Whole Blood 168 mg/dL (70-110)
[2023-08-19 12:01] LABS: Anisocytosis Slight; HCT 24.9 % (34.0-46.0); HGB 7.1 gm/dL (11.4-16.0); Hypochromasia Marked; MCH 30.7 pg (25.0-35.0); MCHC 28.6 g/dL (31.0-37.0); MCV 107.5 fL (80.0-100.0); Macrocytosis Marked; Mean Platelet Volume 7.7; Platelet Count 287 k/uL (150-450); RBC 2.32 m/uL (3.80-5.40); RDW 18.3 % (11.5-15.5); WBC 10.6 k/uL (3.8-10.6)
[2023-08-19 12:25] LABS: ALT 19 U/L (4-34); AST 28 U/L (14-36); African American GFR (CKD) 10 (>60 ml/min/1.73 sqM); Albumin/Globulin Ratio 0.7; Alkaline Phosphatase 84 U/L (38-126); Anion Gap 10 mmol/L; Blood Urea Nitrogen 66 mg/dL (7-17); Calcium 7.8 mg/dL (8.4-10.2); Carbon Dioxide 20 mmol/L (22-30); Chloride 106 mmol/L (98-107); Globulin 2.9 g/dL; Glucose 153 mg/dL (74-99); Magnesium 2.1 mg/dL (1.6-2.3); Non-African American GFR(CKD) 9 (>60 ml/min/1.73 sqM); Potassium 4.8 mmol/L (3.5-5.1); Sodium 136 mmol/L (137-145); Total Bilirubin 0.3 mg/dL (0.2-1.3); Total Protein 4.9 g/dL (6.3-8.2)
--- NOTE | 2023-08-19 15:18 | P.PN ---
Subjective Progress Note Date: 08/19/23 Hospital course: Patient is a 78-year-old female with a past medical history of CAD, sick sinus syndrome status post AICD placement, paroxysmal atrial fibrillation on anticoagulation, hypertension, hyperlipidemia, type 2 insulin-dependent diabetes mellitus, and stage IV chronic kidney disease. Patient was transferred to our facility on 08/06/23 from [facility] secondary to concerns of infected left lower extremity ulcer. 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 Wound culture obtained from left knee positive for pseudomonas aeruginosa and MRSA. Patient with persistent worsening renal function and acute blood loss anemia and anemia of chronic disease. Physical exam: Patient seen and fully evaluated at bedside this morning. When asked about pain patient states a little, otherwise denies any needs this morning. RN at bedside as well reports dressing changed this morning and stump fishing vessel operator remains in place.. Vital signs reviewed and stable. General: Nontoxic, no distress and appears stated age. Obese. Derm: Skin warm and dry, normal coloration for ethnicity. Head: Atraumatic, normocephalic and symmetric. Eyes: EOMs intact, no lid lag, and anicteric sclera Mouth: no lip lesions, mucus membranes moist Cardiovascular: regular rate and rhythm with normal S1S2, systolic murmur, Lungs: Respirations even, regular, and unlabored on room air. Lungs CTA bilaterally, no rhonchi, no rales, no wheezing, and no accessory muscle usage. Abdominal: Obese abdomen soft, nontender to palpation, no guarding, no appreciable organomegaly Akhtar catheter in place.. Ext: No gross muscle atrophy, no edema, no contractures. Left AKA with dressing intact. Neuro: Speech clear, face symmetrical and CN II-XII grossly intact with no noted focal neuro deficits Psych: Alert and oriented to person, place, time, and situation. Appropriate and pleasant affect. Assessment and Plan of Care: Acute kidney injury on chronic kidney disease stage IV: Worsening. Urinary retention. -Nephrology following, reviewed documentation in chart. -Akhtar catheter was inserted, continue Akhtar management -Started patient on Lasix 40 mg daily. -Continue strict I's and O's, patient has had 625 mL of output over the past 24 hours. 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 Completed 7 days of Cefepime and Daptomycin. -Vascular surgery recommending dressing change daily cleaning with Betadine solution, apply Kerlix and stump fishing vessel operator with rigid dressing. Acute blood loss anemia, on chronic anemia: -Anticipated outcome of surgery. Hemoglobin remained stable at 7.2. Repeat CBC tomorrow morning. Transfuse if Hg < 7. Paroxysmal atrial fibrillation, history of sick sinus syndrome status post permanent pacemaker: -Continue daily medication regimen with Coreg 25 mg by mouth twice daily and Eliquis 2.5 mg PO BID Type 2 insulin-dependent diabetes mellitus. -Continue glycemic protocol with NovoLog sliding scale. Hypertension: -Continue daily medication regimen with Coreg 5 mg twice daily and. Hydralazine 75 mg 3 times daily. Dyslipidemia: -Continue daily medication regimen with Lipitor 40 mg nightly. Parkinson's disease with reports of underlying mild Dementia. -Provide safe and supportive care and assistance as needed. Data reviewed: Labs reviewed. CBC showing persistent macrocytic anemia with hemoglobin of 7.1. BMP revealing continued worsening acute kidney injury on stage IV chronic kidney disease with BUN of 66, creatinine of 4.49, and GFR of 9. Vital signs reviewed. Blood pressure 116/65, heart rate 78, respiratory rate 18, temp 97.8F, and SpO2 of 100% on room air. Urinary Output over the past 24 hours only 625 mL. DVT prophylaxis: Eliquis Anticipated discharge date: Clinical course to determine Anticipated discharge place: Clinical course to determine Patient was seen independently by Nurse Pracitioner. This document was prepared using [employer] dictation software. Please allow for errors in can filler, while rare they do occur. Ney Gibson NP rendered care for this patient independently, reviewed the findings and plan as documented in the note above. I did not physically speak with or examine the patient on this date. Objective - Vital Signs Vital signs: Vital Signs Temp 97.8 F 08/19/23 06:59 Pulse 78 08/19/23 08:10 Resp 18 08/19/23 08:10 BP 116/65 08/19/23 06:59 Pulse Ox 100 08/19/23 06:59 FiO2 Intake & Output 08/18/23 08/19/23 08/19/23 18:59 06:59 18:59 Output Total 300 325 Balance -300 -325 Output: Urine 300 325 Other: Voiding Method Indwelling Catheter Indwelling Catheter Indwelling Catheter # Bowel Movements 1 - Labs CBC & Chem 7: 08/20/23 06:52 08/20/23 06:52 Labs: Abnormal Lab Results - Last 24 Hours (Table) 08/18/23 08/18/23 08/18/23 Range/Units 11:25 16:21 19:12 POC Glucose (mg/dL) 195 H 186 H 204 H (70-110) mg/dL 08/19/23 Range/Units 05:50 POC Glucose (mg/dL) 156 H (70-110) mg/dL
[2023-08-19 16:57] LABS: Glucose,Whole Blood 171 mg/dL (70-110)
[2023-08-19 20:29] LABS: Glucose,Whole Blood 208 mg/dL (70-110)
[2023-08-19] MEDS: LACTATED RINGERS 1,000 ML IV SCH (20:44)
[2023-08-19] MEDS: ATORVASTATIN 40 MG TAB PO SCH (20:45)
[2023-08-19] MEDS: clonazePAM 0.5 MG TAB PO SCH (20:45)
[2023-08-20] MEDS: HYDROcodone/APAP 5-325MG 1 EACH TAB PO PRN ×3 (01:16→21:47)
[2023-08-20 05:47] LABS: Glucose,Whole Blood 172 mg/dL (70-110)
[2023-08-20] MEDS: INSULIN ASPART (NovoLOG) 100 UNIT/ML VIAL SQ SCH ×4 (06:30→21:46)
[2023-08-20] MEDS: TAMSULOSIN 0.4 MG CAP.ER.24H PO SCH (08:44)
[2023-08-20] MEDS: NYSTATIN 100,000 UNIT/GM POWD 15 GM TOPICAL SCH ×3 (08:45→22:10)
[2023-08-20] MEDS: hydrALAZINE HCL 50 MG TAB PO SCH ×3 (08:45→22:08)
[2023-08-20] MEDS: carvediloL 12.5 MG TAB PO SCH ×2 (08:45→18:20)
[2023-08-20] MEDS: APIXABAN 2.5 MG TABLET PO SCH ×2 (08:45→21:46)
[2023-08-20] MEDS: GABAPENTIN 300 MG CAP PO SCH (08:45)
[2023-08-20] MEDS: FUROSEMIDE 40 MG TAB PO SCH (08:45)
[2023-08-20] MEDS: PANTOPRAZOLE 40 MG TABLET PO SCH (08:45)
[2023-08-20] MEDS: MAGNESIUM OXIDE 400 MG TAB PO SCH (08:45)
[2023-08-20] MEDS: SODIUM BICARBONATE TAB 650 MG TAB PO SCH ×2 (08:45→22:10)
[2023-08-20] MEDS: allopurinoL 300 MG TAB PO SCH (08:45)
[2023-08-20] MEDS: SERTRALINE 25 MG TAB PO SCH (08:46)
[2023-08-20 10:52] LABS: MCH 30.6 pg (27.0-32.0); MCHC 29.2 g/dL (32.0-37.0); MCV 104.8 FL (80.0-97.0); Mean Platelet Volume 10.4 FL (9.5-12.2); NRBC Per 100 WBC 0 X 10*3/uL (0.00-0.01); Platelet Count 324 X 10*3/uL (140-440); RBC 2.29 X 10*6/uL (4.10-5.20); RDW 17.5 % (11.5-14.5)
[2023-08-20 11:00] LABS: ALT 35 U/L (8-44); AST 49 U/L (13-35); Albumin 2.2 g/dL (3.8-4.9); Albumin/Globulin Ratio 0.81 Ratio (1.60-3.17); Alkaline Phosphatase 95 U/L (41-126); Blood Urea Nitrogen 63.7 mg/dL (9.0-27.0); Calcium 8.2 mg/dL (8.7-10.3); Carbon Dioxide 21.7 mmol/L (21.6-31.8); Chloride 105 mmol/L (96-109); Globulin 2.7 g/dL (1.6-3.3); Glucose 150 mg/dL (70-110); Magnesium 2.2 mg/dL (1.5-2.4); Potassium 5.5 mmol/L (3.5-5.5); Sodium 137 mmol/L (135-145); Total Bilirubin 0.3 mg/dL (0.3-1.2); Total Protein 4.9 g/dL (6.2-8.2)
--- NOTE | 2023-08-20 11:12 | P.PN ---
Subjective Patient is seen for follow-up for chronic kidney disease with acute kidney injury. Renal function is fairly stable with creatinine staying at 4.1-4.3 mg/dL which is up from her baseline creatinine of about 2.7-3 mg/dL. Being diuresed with low-dose loop diuretics.. Patient has significant lower extremity edema. Patient is not short of breath but remains with significant volume overload. 24 hour urine output at 625 mL. Indwelling Akhtar catheter present. Patient has been talked to regarding renal replacement therapy. Serum creatinine remains significantly elevated along with persistent volume overload. We need to proceed with starting dialysis. Objective - Vital Signs Vital signs: Vital Signs Temp 98.4 F 08/20/23 08:00 Pulse 73 08/20/23 08:00 Resp 17 08/20/23 08:00 BP 108/62 08/20/23 08:00 Pulse Ox 97 08/20/23 08:00 FiO2 Intake & Output 08/19/23 08/20/23 08/20/23 18:59 06:59 18:59 Intake Total 480 Output Total 180 150 Balance -180 -150 480 Intake: Oral 480 Output: Urine 180 150 Other: Voiding Method Indwelling Catheter Indwelling Catheter Indwelling Catheter # Bowel Movements 0 - Exam Patient is awake, comfortable, no acute distress. Examination of the heart S1 and S2 Examination of the lungs bilateral breath sounds are heard Abdomen is soft obese Examination of lower extremities shows 3+ edema bilaterally BAND SAW FILER exam grossly intact - Labs CBC & Chem 7: 08/20/23 06:52 08/19/23 11:07 Labs: Abnormal Lab Results - Last 24 Hours (Table) 08/19/23 08/19/23 08/19/23 Range/Units 11:07 11:07 11:46 WBC (4.50-10.00) X 10*3/uL RBC 2.32 L (3.80-5.40) m/uL Hgb 7.1 L (11.4-16.0) gm/dL Hct 24.9 L (34.0-46.0) % MCV 107.5 H (80.0-100.0) fL MCHC 28.6 L (31.0-37.0) g/dL RDW 18.3 H (11.5-15.5) % Macrocytosis Marked A Sodium 136 L (137-145) mmol/L Carbon Dioxide 20 L (22-30) mmol/L BUN 66 H (7-17) mg/dL Creatinine 4.49 H (0.52-1.04) mg/dL Glucose 153 H (74-99) mg/dL POC Glucose (mg/dL) 168 H (70-110) mg/dL Calcium 7.8 L (8.4-10.2) mg/dL Total Protein 4.9 L (6.3-8.2) g/dL Albumin 2.0 L (3.5-5.0) g/dL 08/19/23 08/19/23 08/20/23 Range/Units 16:55 20:28 05:46 WBC (4.50-10.00) X 10*3/uL RBC (3.80-5.40) m/uL Hgb (11.4-16.0) gm/dL Hct (34.0-46.0) % MCV (80.0-100.0) fL MCHC (31.0-37.0) g/dL RDW (11.5-15.5) % Macrocytosis Sodium (137-145) mmol/L Carbon Dioxide (22-30) mmol/L BUN (7-17) mg/dL Creatinine (0.52-1.04) mg/dL Glucose (74-99) mg/dL POC Glucose (mg/dL) 171 H 208 H 172 H (70-110) mg/dL Calcium (8.4-10.2) mg/dL Total Protein (6.3-8.2) g/dL Albumin (3.5-5.0) g/dL 08/20/23 Range/Units 06:52 WBC 14.10 H (4.50-10.00) X 10*3/uL RBC 2.29 L (3.80-5.40) m/uL Hgb 7.0 L (11.4-16.0) gm/dL Hct 24.0 L (34.0-46.0) % MCV 104.8 H (80.0-100.0) fL MCHC 29.2 L (31.0-37.0) g/dL RDW 17.5 H (11.5-15.5) % Macrocytosis Sodium (137-145) mmol/L Carbon Dioxide (22-30) mmol/L BUN (7-17) mg/dL Creatinine (0.52-1.04) mg/dL Glucose (74-99) mg/dL POC Glucose (mg/dL) (70-110) mg/dL Calcium (8.4-10.2) mg/dL Total Protein (6.3-8.2) g/dL Albumin (3.5-5.0) g/dL Assessment and Plan Assessment: 1. Acute kidney injury secondary to vasomotor nephropathy from diuresis. Renal function gradually worsening with creatinine 4.9 today. Kidneys noted to be atrophic with no evidence of hydronephrosis. Patient remains with significant volume overload. Therefore she will be started on hemodialysis. 2. Left knee infected wound status post [id number] amputation 08/09/2023. 3. Chronic kidney disease stage IV with baseline creatinine 2.3-2.7 secondary to diabetic kidney disease and cardiorenal syndrome. 4. Chronic diastolic CHF. 5. Anemia of chronic kidney disease. Iron deficiency noted. Receiving IV iron. Also on Aranesp. 6. Chronic kidney disease mineral bone disease maintained on calcitriol. 7. Hypertension with chronic kidney disease. Stable. 8. Diabetes mellitus. 9. Urinary retention. Akhtar catheter placed 08/11/2023. On Flomax. 10. Metabolic acidosis secondary to acute kidney injury. On oral bicarb. Plan: Increase diuretics. Discussed with son daughter and [id number] regarding starting renal replacement therapy. They would like to discuss it with again with the patient before making the final decision.
[2023-08-20 11:28] LABS: Glucose,Whole Blood 188 mg/dL (70-110)
[2023-08-20] MEDS: FUROSEMIDE 10 MG/ML 10 ML VIAL IV SCH ×2 (12:45→21:45)
--- NOTE | 2023-08-20 16:45 | P.PN ---
Subjective Progress Note Date: 08/20/23 Hospital course: Patient is a 78-year-old female with a past medical history of CAD, sick sinus syndrome status post AICD placement, paroxysmal atrial fibrillation on anticoagulation, hypertension, hyperlipidemia, type 2 insulin-dependent diabetes mellitus, and stage IV chronic kidney disease. Patient was transferred to our facility on 08/06/23 from [facility] secondary to concerns of infected left lower extremity ulcer. 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 Wound culture obtained from left knee positive for pseudomonas aeruginosa and MRSA. Patient with persistent worsening renal function and acute blood loss anemia and anemia of chronic disease. Physical exam: Patient seen and fully evaluated at bedside this morning. Patient reports having a little more pain in her left stump today. Dressing and stump finger lift operator remains in place. Renal function further elevating, discussed with nephrology recommending patient begin dialysis. Patient's son to be contacted for consent. Dr. Faust consulted to insert permacath as patient is scheduled to begin dialysis on 08/21/23. Vital signs reviewed and stable. General: Nontoxic, no distress and appears stated age. Obese. Derm: Skin warm and dry, normal coloration for ethnicity. Head: Atraumatic, normocephalic and symmetric. Eyes: EOMs intact, no lid lag, and anicteric sclera Mouth: no lip lesions, mucus membranes moist Cardiovascular: regular rate and rhythm with normal S1S2, systolic murmur, Lungs: Respirations even, regular, and unlabored on room air. Lungs CTA bilaterally, no rhonchi, no rales, no wheezing, and no accessory muscle usage. Abdominal: Obese abdomen soft, nontender to palpation, no guarding, no appreciable organomegaly Akhtar catheter in place.. Ext: No gross muscle atrophy, no edema, no contractures. Left AKA with dressing intact. Neuro: Speech clear, face symmetrical and CN II-XII grossly intact with no noted focal neuro deficits Psych: Alert and oriented. Appropriate and pleasant affect. Assessment and Plan of Care: Acute kidney injury on chronic kidney disease stage IV: Worsening. Patient scheduled to begin dialysis 08/21/23. Oliguria -Nephrology following, discussed plan of care. Spinning Machine Tender to call patient's son for consent to begin dialysis. -Consult placed to vascular surgery for insertion of permacath for dialysis. -Continue Akhtar catheter with Akhtar management -Started patient on Lasix 40 mg daily. -Continue strict I's and O's, patient has had 625 mL of output over the past 24 hours. 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 Completed 7 days of Cefepime and Daptomycin. -Vascular surgery recommending dressing change daily cleaning with Betadine solution, apply Kerlix and stump finger lift operator with rigid dressing. Acute blood loss anemia, on chronic anemia: -Anticipated outcome of surgery. Hemoglobin remained stable at 7.2. Repeat CBC tomorrow morning. Transfuse if Hg < 7. Paroxysmal atrial fibrillation, history of sick sinus syndrome status post permanent pacemaker: -Continue daily medication regimen with Coreg 25 mg by mouth twice daily and Eliquis 2.5 mg PO BID Type 2 insulin-dependent diabetes mellitus. -Continue glycemic protocol with NovoLog sliding scale. Hypertension: -Continue daily medication regimen with Coreg 5 mg twice daily and. Hydralazine 75 mg 3 times daily. Dyslipidemia: -Continue daily medication regimen with Lipitor 40 mg nightly. Parkinson's disease with reports of underlying mild Dementia. -Provide safe and supportive care and assistance as needed. Data reviewed: Labs reviewed. CBC showing persistent macrocytic anemia with hemoglobin of 7.1. BMP revealing continued worsening acute kidney injury on stage IV chronic kidney disease with BUN of 66, creatinine of 4.49, and GFR of 9. Vital signs reviewed. Blood pressure 116/65, heart rate 78, respiratory rate 18, temp 97.8F, and SpO2 of 100% on room air. Urinary Output over the past 24 hours worsening only 330 mL. DVT prophylaxis: Eliquis Anticipated discharge date: Clinical course to determine Anticipated discharge place: Clinical course to determine Patient was seen independently by Nurse Pracitioner. This document was prepared using [employer] dictation software. Please allow for errors in tag press operator, while rare they do occur. Ney Gibson NP rendered care for this patient independently, reviewed the findings and plan as documented in the note above. I did not physically speak with or examine the patient on this date. Objective - Vital Signs Vital signs: Vital Signs Temp 99.0 F 08/20/23 01:06 Pulse 80 08/20/23 06:05 Resp 16 12/18/23 01:06 BP 105/53 08/20/23 06:05 Pulse Ox 98 08/20/23 01:06 FiO2 Intake & Output 08/19/23 08/20/23 08/20/23 18:59 06:59 18:59 Output Total 180 150 Balance -180 -150 Output: Urine 180 150 Other: Voiding Method Indwelling Catheter Indwelling Catheter # Bowel Movements 0 - Labs CBC & Chem 7: 08/20/23 06:52 08/20/23 06:52 Labs: Abnormal Lab Results - Last 24 Hours (Table) 08/19/23 08/19/23 08/19/23 Range/Units 11:07 11:07 11:46 RBC 2.32 L (3.80-5.40) m/uL Hgb 7.1 L (11.4-16.0) gm/dL Hct 24.9 L (34.0-46.0) % MCV 107.5 H (80.0-100.0) fL MCHC 28.6 L (31.0-37.0) g/dL RDW 18.3 H (11.5-15.5) % Macrocytosis Marked A Sodium 136 L (137-145) mmol/L Carbon Dioxide 20 L (22-30) mmol/L BUN 66 H (7-17) mg/dL Creatinine 4.49 H (0.52-1.04) mg/dL Glucose 153 H (74-99) mg/dL POC Glucose (mg/dL) 168 H (70-110) mg/dL Calcium 7.8 L (8.4-10.2) mg/dL Total Protein 4.9 L (6.3-8.2) g/dL Albumin 2.0 L (3.5-5.0) g/dL 08/19/23 08/19/23 08/20/23 Range/Units 16:55 20:28 05:46 RBC (3.80-5.40) m/uL Hgb (11.4-16.0) gm/dL Hct (34.0-46.0) % MCV (80.0-100.0) fL MCHC (31.0-37.0) g/dL RDW (11.5-15.5) % Macrocytosis Sodium (137-145) mmol/L Carbon Dioxide (22-30) mmol/L BUN (7-17) mg/dL Creatinine (0.52-1.04) mg/dL Glucose (74-99) mg/dL POC Glucose (mg/dL) 171 H 208 H 172 H (70-110) mg/dL Calcium (8.4-10.2) mg/dL Total Protein (6.3-8.2) g/dL Albumin (3.5-5.0) g/dL
[2023-08-20 17:14] LABS: Glucose,Whole Blood 196 mg/dL (70-110)
[2023-08-20] MEDS: LACTATED RINGERS 1,000 ML IV SCH (18:20)
[2023-08-20 21:17] LABS: Glucose,Whole Blood 172 mg/dL (70-110)
[2023-08-20] MEDS: ATORVASTATIN 40 MG TAB PO SCH (21:46)
[2023-08-20] MEDS: clonazePAM 0.5 MG TAB PO SCH (21:46)
[2023-08-21 01:19] LABS: Hepatitis B Surface Antigen Nonreactive
[2023-08-21 05:31] LABS: Glucose,Whole Blood 148 mg/dL (70-110)
[2023-08-21] MEDS: INSULIN ASPART (NovoLOG) 100 UNIT/ML VIAL SQ SCH ×4 (05:38→20:44)
[2023-08-21] MEDS: carvediloL 12.5 MG TAB PO SCH (06:40)
[2023-08-21] MEDS: FUROSEMIDE 10 MG/ML 10 ML VIAL IV SCH ×2 (08:58→20:43)
[2023-08-21] MEDS: HYDROcodone/APAP 5-325MG 1 EACH TAB PO PRN ×2 (09:00→20:43)
[2023-08-21] MEDS: PANTOPRAZOLE 40 MG TABLET PO SCH (09:01)
[2023-08-21] MEDS: MAGNESIUM OXIDE 400 MG TAB PO SCH (09:01)
[2023-08-21] MEDS: SERTRALINE 25 MG TAB PO SCH (09:01)
[2023-08-21] MEDS: GABAPENTIN 300 MG CAP PO SCH (09:02)
[2023-08-21] MEDS: allopurinoL 300 MG TAB PO SCH (09:02)
[2023-08-21] MEDS: TAMSULOSIN 0.4 MG CAP.ER.24H PO SCH (09:02)
[2023-08-21] MEDS: APIXABAN 2.5 MG TABLET PO SCH ×2 (09:02→17:31)
[2023-08-21] MEDS: SODIUM BICARBONATE TAB 650 MG TAB PO SCH ×2 (09:02→20:43)
[2023-08-21] MEDS: NYSTATIN 100,000 UNIT/GM POWD 15 GM TOPICAL SCH ×3 (09:02→20:44)
[2023-08-21] MEDS: hydrALAZINE HCL 50 MG TAB PO SCH ×3 (09:02→20:21)
[2023-08-21] MEDS: MORPHINE SULFATE 2 MG/ML SYRINGE IVP PRN (11:07)
[2023-08-21 11:19] LABS: Glucose,Whole Blood 157 mg/dL (70-110)
--- NOTE | 2023-08-21 11:41 | P.PN ---
Subjective Patient is seen for follow-up for chronic kidney disease with acute kidney injury. Renal function is fairly stable with creatinine staying at 4.1-4.3 mg/dL which is up from her baseline creatinine of about 2.7-3 mg/dL. Being diurese. Patient has significant lower extremity edema. Patient is not short of breath but remains with significant volume overload. 24 hour urine output at 625 mL. not sure if this is accurate. Indwelling Akhtar catheter present. Patient has been talked to regarding renal replacement therapy. Serum creatinine remains significantly elevated along with persistent volume overload. We need to proceed with starting dialysis. Discussed with son, daughter and [id number] yesterday. Family is agreeable to start renal replacement therapy. Patient received Eliquis this morning, therefore permacath insertion will be held today and we will plan for possibly tomorrow or on 08/23/2023 Objective - Vital Signs Vital signs: Vital Signs Temp 97.5 F L 08/21/23 07:23 Pulse 56 L 08/21/23 08:50 Resp 17 08/21/23 07:23 BP 91/55 08/21/23 11:10 Pulse Ox 98 08/21/23 07:23 FiO2 Intake & Output 08/20/23 08/21/23 08/21/23 18:59 06:59 18:59 Intake Total 720 240 Output Total 100 175 Balance 620 65 Intake: Intake, IV Titration 240 Amount Lactated Ringers 1,000 ml 240 @ 20 mls/hr IV .Q24H [facility] Rx#:[id number] Oral 720 Output: Urine 100 175 Other: Voiding Method Indwelling Catheter Indwelling Catheter - Exam Patient is awake, complaining of abdominal pain, no acute distress. Examination of the heart S1 and S2 Examination of the lungs bilateral breath sounds are heard Abdomen is soft obese, mild tenderness mid abdomen Examination of lower extremities shows 3+ edema bilaterally C[employer] ADVOCATE exam grossly intact - Labs CBC & Chem 7: 08/20/23 06:52 08/20/23 06:52 Labs: Abnormal Lab Results - Last 24 Hours (Table) 08/20/23 08/20/23 08/20/23 Range/Units 06:52 17:12 21:15 POC Glucose (mg/dL) 196 H 172 H (70-110) mg/dL Hep Bs Antibody A (Negative) Hep B Core Total Ab Reactive A (Non-Reactive) 08/21/23 08/21/23 Range/Units 05:28 11:18 POC Glucose (mg/dL) 148 H 157 H (70-110) mg/dL Hep Bs Antibody (Negative) Hep B Core Total Ab (Non-Reactive) Assessment and Plan Assessment: 1. Acute kidney injury secondary to vasomotor nephropathy from diuresis. Renal function gradually worsening with creatinine 4.9 yesterday. Kidneys noted to be atrophic with no evidence of hydronephrosis. Patient remains with significant volume overload. Therefore she will be started on hemodialysis. Permacath could not be placed today as patient had an liquids. We will plan for tomorrow or on 08/23/2023. 2. Left knee infected wound status post [id number] amputation 08/09/2023. 3. Chronic kidney disease stage IV with baseline creatinine 2.3-2.7 secondary to diabetic kidney disease and cardiorenal syndrome. 4. Chronic diastolic CHF. 5. Anemia of chronic kidney disease. Iron deficiency noted. Receiving IV iron. Also on Aranesp. 6. Chronic kidney disease mineral bone disease maintained on calcitriol. 7. Hypertension with chronic kidney disease. Stable. 8. Diabetes mellitus. 9. Urinary retention. Akhtar catheter placed 08/11/2023. On Flomax. 10. Metabolic acidosis secondary to acute kidney injury. On oral bicarb. Plan: Increase diuretics. Hemodialysis once permacathplaced. This will be done likely tomorrow or day after. eliquis is on hold. Patient did receive a dose this morning.
[2023-08-21] MEDS: DARBEPOETIN ALFA 40 MCG/0.4 ML SYRINGE SQ SCH (13:17)
--- NOTE | 2023-08-21 16:06 | P.GSCN ---
History of Present Illness History of present illness: 78-year-old female with acute kidney injury with high creatinine of 4.1 consulted for placement of a dialysis catheter. Patient has history of is heart failure patient had a left above-knee amputation patient had a necrotic was taken this morning Chest is clear few crackles the lung bases Abdomen soft nontender Patient had a left BK amputation Plan is we'll hold the Olympus tomorrow and plan to place a dialysis catheter patient have a breakfast in the morning been nothing by mouth and we will hold the Olympus risk and complication discussed Past Medical History Past Medical History: Atrial Fibrillation, Chest Pain / Angina, Dementia, Dionne betes Mellitus, GERD/Reflux, Hyperlipidemia, Hypertension, Musculoskeletal Disorder, Neurologic Disorder, Pneumonia, Renal Disease, Seizure Disorder, Vascular Disorder Additional Past Medical History / Comment(s): IDDM type II, paroxysmal atrial fibrilation, parkinsons, epilepsy, muscle weakness, anemia, hyperkalemia, sick sinus syndrome with pacemaker, PVD, CKD stage 3, gastritis, dysphagia, gout History of Any Multi-Drug Resistant Organisms: MRSA, Other MDRO Year Discovered:: 08/06/23 MRSA MDRO Source:: Left Knee MRSA and MDRO Past Surgical History: Pacemaker Past Anesthesia/Blood Transfusion Reactions: No Reported Reaction Type of Cardiac Device: Permanent Pacemaker Device Placement Date:: unknown Past Psychological History: Depression Additional Psychological History / Comment(s): Pt resides at [facility]. She is a jared lift to wheelchair. She is incontinent. She can feed herself if her meal is set up. She understands Telugu. She speaks with a thick accent. Smoking Status: Never smoker Past Alcohol Use History: None Reported Past Drug Use History: None Reported - Past Family History Father Family Medical History: Unable to Obtain Mother Family Medical History: Unable to Obtain Medications and Allergies Home Medications Medication Instructions Recorded Confirmed Type Atorvastatin [Lipitor] 40 mg PO HS@2100 12/29/21 08/06/23 History Ferrous Sulfate [Iron (65 MG 325 mg PO BID 12/29/21 08/06/23 History Elemental)] Omeprazole 20 mg PO DAILY 12/29/21 08/06/23 History Lactulose [Cephulac] 20 gm PO DAILY PRN ml 01/05/22 08/06/23 Rx Calcium Acetate [PhosLo] 667 mg PO DAILY 01/19/23 08/06/23 History Sodium Chloride [Saline Mist] 1 spray EA NOSTRIL Q2H PRN 01/19/23 08/06/23 Hi story allopurinoL [Zyloprim] 300 mg PO DAILY 01/19/23 08/06/23 History bisacodyL [Dulcolax] 10 mg RECTAL DAILY PRN 01/19/23 08/06/23 History calcitrioL [Calcitriol] 0.25 mcg PO MOTUWETHSA 01/19/23 08/06/23 History carvediloL [Coreg] 25 mg PO BID 01/19/23 08/06/23 History Acetaminophen Tab [Tylenol] 500 mg PO Q6HR PRN tab 01/23/23 08/06/23 Rx Ipratropium-Albuterol Nebulize 3 ml INHALATION RT-BID PRN 05/04/23 08/06/23 History [Duoneb 0.5 mg-3 mg/3 ml Soln] Magnesium Oxide [Mag-Ox] 400 mg PO DAILY 05/04/23 08/06/23 History Ondansetron [Zofran] 4 mg PO Q6H PRN 05/04/23 08/06/23 History Apixaban [Eliquis] 2.5 mg PO BID tab 05/14/23 08/06/23 Rx Sodium Bicarbonate Tab 650 mg PO BID tab 05/14/23 08/06/23 Rx clonazePAM [KlonoPIN] 0.5 mg PO HS #3 tab 05/14/23 08/06/23 Rx Darbepoetin Peng [Aranesp] 60 mcg SQ MOFR 08/06/23 08/06/23 History Ergocalciferol (Vitamin D2) 1,250 mcg PO FR 08/06/23 08/06/23 History [Drisdol (50,000 Iu)] Furosemide [Lasix] 40 mg PO DAILY 08/06/23 08/06/23 History Potassium Chloride ER [K-Dur 10] 10 meq PO DAILY 08/06/23 08/06/23 History Sertraline [Zoloft] 25 mg PO DAILY 08/06/23 08/06/23 History hydrALAZINE HCL [Apresoline] 25 mg PO BID 08/06/23 08/06/23 History Gabapentin [Neurontin] 300 mg PO DAILY #3 cap 08/13/23 Rx HYDROcodone/APAP 5-325MG [[place] 1 tab PO TID 3 Days #9 tab 08/13/23 Rx 5-325] Allergies Allergy/AdvReac Type Severity Reaction Status Date / Time codeine Allergy Unknown Verified 08/06/23 20:56 hydromorphone [From Dilaudid] Allergy Unknown Verified 08/06/23 20:56 acetaminophen AdvReac see comment Verified 08/06/23 20:56 Surgical - Exam Vital Signs Temp Pulse Resp BP Pulse Ox 97.9 F 77 16 198/86 97 08/06/23 18:39 08/06/23 18:39 08/06/23 18:39 08/06/23 18:39 08/06/23 18:39 Results - Labs 08/20/23 06:52 08/20/23 06:52 Abnormal Lab Results - Last 24 Hours (Table) 08/20/23 08/20/23 08/20/23 Range/Units 06:52 17:12 21:15 POC Glucose (mg/dL) 196 H 172 H (70-110) mg/dL Hep Bs Antibody A (Negative) Hep B Core Total Ab Reactive A (Non-Reactive) 08/21/23 08/21/23 Range/Units 05:28 11:18 POC Glucose (mg/dL) 148 H 157 H (70-110) mg/dL Hep Bs Antibody (Negative) Hep B Core Total Ab (Non-Reactive)
[2023-08-21 16:29] LABS: Glucose,Whole Blood 285 mg/dL (70-110)
--- NOTE | 2023-08-21 17:21 | P.PN ---
Subjective Progress Note Date: 08/21/23 Hospital course: Patient is a 78-year-old female with a past medical history of CAD, sick sinus syndrome status post AICD placement, paroxysmal atrial fibrillation on anticoagulation, hypertension, hyperlipidemia, type 2 insulin-dependent diabetes mellitus, and stage IV chronic kidney disease. Patient was transferred to our facility on 08/06/23 from [facility] secondary to concerns of infected left lower extremity ulcer. 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 Wound culture obtained from left knee positive for pseudomonas aeruginosa and MRSA. Patient with persistent worsening renal function and acute blood loss anemia and anemia of chronic disease. Renal function also continued to worsen. Patient is scheduled for insertion of permacath and initiation of dialysis on 08/22/23. Physical exam: Patient seen and fully evaluated at bedside this morning. Patient is tearful this morning reports postsurgical pain and left stump. Patient denies any other complaints at this time. Patient received anticoagulant this morning and therefore placement of permacath is delayed. Vital signs reviewed and stable. General: Nontoxic, no distress and appears stated age. Obese. Derm: Skin warm and dry, normal coloration for ethnicity. Head: Atraumatic, normocephalic and symmetric. Eyes: EOMs intact, no lid lag, and anicteric sclera Mouth: no lip lesions, mucus membranes moist Cardiovascular: regular rate and rhythm with normal S1S2, systolic murmur, Lungs: Respirations even, regular, and unlabored on room air. Lungs CTA bilaterally, no rhonchi, no rales, no wheezing, and no accessory muscle usage. Abdominal: Obese abdomen soft, nontender to palpation, no guarding, no appreciable organomegaly Akhtar catheter in place.. Ext: No gross muscle atrophy, no edema, no contractures. Left AKA with dressing intact. Neuro: Speech clear, face symmetrical and CN II-XII grossly intact with no noted focal neuro deficits Psych: Alert and oriented. Appropriate and pleasant affect. Assessment and Plan of Care: Acute kidney injury on chronic kidney disease stage IV: Worsening. Patient scheduled to begin dialysis 08/22/23. Oliguria -Nephrology following, discussed plan of care. Patient scheduled to begin dialysis on 08/22/23 as patient received anticoagulant this morning resulting in postponement of insertion of permacath. -Discussed with vascular surgery, plan is to take patient to OR on 08/22/23 for insertion of permacath. Eliquis to be held. -Continue Akhtar catheter with Akhtar management -Lasix increased to 60 mg IVP every 12 hours. -Continue strict I's and O's, patient has had 275 mL of output over the past 24 hours. 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 Completed 7 days of Cefepime and Daptomycin. 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 Acute blood loss anemia, on chronic anemia: -Anticipated outcome of surgery. Hemoglobin remained stable at 7.0. Repeat CBC tomorrow morning. Transfuse if Hg < 7. Paroxysmal atrial fibrillation, history of sick sinus syndrome status post permanent pacemaker: -Continue daily medication regimen with Coreg 25 mg by mouth twice daily and Eliquis 2.5 mg PO BID Type 2 insulin-dependent diabetes mellitus. -Continue glycemic protocol with NovoLog sliding scale. Hypertension: -Continue daily medication regimen with Coreg 5 mg twice daily and. Hydralazine 75 mg 3 times daily. Dyslipidemia: -Continue daily medication regimen with Lipitor 40 mg nightly. Parkinson's disease with reports of underlying mild Dementia. -Provide safe and supportive care and assistance as needed. Data reviewed: Labs pending. Vital signs reviewed. Blood pressure 92/44, heart rate 65, respiratory rate 17, temp 97.5F, SpO2 of 98% on room air. Urinary Output over the past 24 hours worsening only 275 mL. DVT prophylaxis: Eliquis Anticipated discharge date: Clinical course to determine Anticipated discharge place: Clinical course to determine Patient was seen independently by Nurse Pracitioner. This document was prepared using Am[employer] dictation software. Please allow for errors in behavioral science chair, while rare they do occur. Ney Gibson NP rendered care for this patient independently, reviewed the findings and plan as documented in the note above. I did not physically speak with or examine the patient on this date. Objective - Vital Signs Vital signs: Vital Signs Temp 97.5 F L 08/21/23 07:23 Pulse 65 08/21/23 07:23 Resp 17 08/21/23 07:23 BP 92/44 08/21/23 07:23 Pulse Ox 98 08/21/23 07:23 FiO2 Intake & Output 08/20/23 08/21/23 08/21/23 18:59 06:59 18:59 Intake Total 720 240 Output Total 100 175 Balance 620 65 Intake: Intake, IV Titration 240 Amount Lactated Ringers 1,000 ml 240 @ 20 mls/hr IV .Q24H [facility] Rx#:[id number] Oral 720 Output: Urine 100 175 Other: Voiding Method Indwelling Catheter - Labs CBC & Chem 7: 08/20/23 06:52 08/20/23 06:52 Labs: Abnormal Lab Results - Last 24 Hours (Table) 08/20/23 08/20/23 08/20/23 Range/Units 06:52 06:52 06:52 WBC 14.10 H (4.50-10.00) X 10*3/uL RBC 2.29 L (4.10-5.20) X 10*6/uL Hgb 7.0 L (12.0-15.0) g/dL Hct 24.0 L (37.2-46.3) % MCV 104.8 H (80.0-97.0) FL MCHC 29.2 L (32.0-37.0) g/dL RDW 17.5 H (11.5-14.5) % BUN 63.7 H (9.0-27.0) mg/dL Creatinine 4.9 H (0.6-1.5) mg/dL Est GFR (CKD-EPI) 8 L (>=60) Glucose 150 H (70-110) mg/dL POC Glucose (mg/dL) (70-110) mg/dL Calcium 8.2 L (8.7-10.3) mg/dL AST 49 H (13-35) U/L Total Protein 4.9 L (6.2-8.2) g/dL Albumin 2.2 L (3.8-4.9) g/dL Albumin/Globulin Ratio 0.81 L (1.60-3.17) Ratio Hep Bs Antibody A (Negative) Hep B Core Total Ab Reactive A (Non-Reactive) 08/20/23 08/20/23 08/20/23 Range/Units 11:26 17:12 21:15 WBC (4.50-10.00) X 10*3/uL RBC (4.10-5.20) X 10*6/uL Hgb (12.0-15.0) g/dL Hct (37.2-46.3) % MCV (80.0-97.0) FL MCHC (32.0-37.0) g/dL RDW (11.5-14.5) % BUN (9.0-27.0) mg/dL Creatinine (0.6-1.5) mg/dL Est GFR (CKD-EPI) (>=60) Glucose (70-110) mg/dL POC Glucose (mg/dL) 188 H 196 H 172 H (70-110) mg/dL Calcium (8.7-10.3) mg/dL AST (13-35) U/L Total Protein (6.2-8.2) g/dL Albumin (3.8-4.9) g/dL Albumin/Globulin Ratio (1.60-3.17) Ratio Hep Bs Antibody (Negative) Hep B Core Total Ab (Non-Reactive) 08/21/23 Range/Units 05:28 WBC (4.50-10.00) X 10*3/uL RBC (4.10-5.20) X 10*6/uL Hgb (12.0-15.0) g/dL Hct (37.2-46.3) % MCV (80.0-97.0) FL MCHC (32.0-37.0) g/dL RDW (11.5-14.5) % BUN (9.0-27.0) mg/dL Creatinine (0.6-1.5) mg/dL Est GFR (CKD-EPI) (>=60) Glucose (70-110) mg/dL POC Glucose (mg/dL) 148 H (70-110) mg/dL Calcium (8.7-10.3) mg/dL AST (13-35) U/L Total Protein (6.2-8.2) g/dL Albumin (3.8-4.9) g/dL Albumin/Globulin Ratio (1.60-3.17) Ratio Hep Bs Antibody (Negative) Hep B Core Total Ab (Non-Reactive)
[2023-08-21] MEDS: LACTATED RINGERS 1,000 ML IV SCH (17:27)
[2023-08-21] MEDS: carvediloL 6.25 MG TAB PO SCH (17:30)
[2023-08-21 18:48] LABS: ALT 76 U/L (4-34); AST 83 U/L (14-36); African American GFR (CKD) 9 (>60 ml/min/1.73 sqM); Albumin 2.2 g/dL (3.5-5.0); Albumin/Globulin Ratio 0.7; Alkaline Phosphatase 104 U/L (38-126); Anion Gap 8 mmol/L; Blood Urea Nitrogen 80 mg/dL (7-17); Calcium 8.2 mg/dL (8.4-10.2); Carbon Dioxide 21 mmol/L (22-30); Chloride 102 mmol/L (98-107); Globulin 3.1 g/dL; Glucose 158 mg/dL (74-99); Non-African American GFR(CKD) 8 (>60 ml/min/1.73 sqM); Potassium 5.6 mmol/L (3.5-5.1); Sodium 131 mmol/L (137-145); Total Bilirubin 0.5 mg/dL (0.2-1.3); Total Protein 5.3 g/dL (6.3-8.2)
[2023-08-21 18:56] LABS: Anisocytosis Slight; HCT 23.1 % (34.0-46.0); Hypochromasia Marked; MCH 31.8 pg (25.0-35.0); MCHC 30.1 g/dL (31.0-37.0); MCV 105.7 fL (80.0-100.0); Macrocytosis Marked; Mean Platelet Volume 8.1; Platelet Count 290 k/uL (150-450); RBC 2.19 m/uL (3.80-5.40); RDW 18.2 % (11.5-15.5); WBC 9.3 k/uL (3.8-10.6)
[2023-08-21 20:01] LABS: Glucose,Whole Blood 194 mg/dL (70-110)
[2023-08-21] MEDS: ATORVASTATIN 40 MG TAB PO SCH (20:43)
[2023-08-21] MEDS: clonazePAM 0.5 MG TAB PO SCH (20:43)
[2023-08-22] MEDS: MORPHINE SULFATE 2 MG/ML SYRINGE IVP PRN (02:57)
[2023-08-22] MEDS: HYDROcodone/APAP 5-325MG 1 EACH TAB PO PRN ×2 (05:23→14:58)
[2023-08-22 06:03] LABS: Glucose,Whole Blood 169 mg/dL (70-110)
[2023-08-22] MEDS: INSULIN ASPART (NovoLOG) 100 UNIT/ML VIAL SQ SCH ×4 (06:37→20:33)
[2023-08-22] MEDS: APIXABAN 2.5 MG TABLET PO SCH ×2 (07:59→10:04)
[2023-08-22] MEDS ORDERED: IV FLUID CONTINUATION 1,000 ML IV ONE (08:05)
[2023-08-22] MEDS: hydrALAZINE HCL 50 MG TAB PO SCH (08:09)
[2023-08-22] MEDS: carvediloL 6.25 MG TAB PO SCH ×2 (08:09→17:13)
[2023-08-22] MEDS ORDERED: LIDOCAINE 1% INJ 10MG/ML (20 ML MDV) SQ ONE (08:19)
[2023-08-22] MEDS ORDERED: MIDAZOLAM 2 MG/2 ML VIAL IVP ONE (08:20)
[2023-08-22] MEDS ORDERED: fentaNYL (PF) 50 MCG/ML 2 ML AMP IVP ONE ×2 (08:20)
[2023-08-22] MEDS: MIDAZOLAM 2 MG/2 ML VIAL IVP ONE ×2 (08:20→08:31)
--- NOTE | 2023-08-22 08:54 | IR ---
EXAMINATION TYPE: IR cvc insert central tunneled DATE OF EXAM: 08/22/2023 COMPARISON: NONE HISTORY: Fluoroscopy time. Fluoroscopy was provided to the referring clinician.
--- NOTE | 2023-08-22 09:41 | XR ---
EXAMINATION TYPE: XR chest 1V confirm line [facility] DATE OF EXAM: 08/22/2023 HISTORY: Shortness of breath. COMPARISON: 08/15/2023 TECHNIQUE: Single view of the chest is submitted. FINDINGS: Demonstrated are scattered senescent parenchymal change. There is left basilar opacity which may reflect infiltrate or atelectasis. Large bore central venous line with distal tip overlying the SVC. No evidence for pneumothorax. Dual-lead pacer is in place. The heart is stable. Hilar and mediastinal structures are within normal limits. Degenerative changes are seen of the dorsal spine. IMPRESSION: 1. There is left basilar opacity which may reflect infiltrate or atelectasis. Large bore central willi ous line with distal tip overlying the SVC. No evidence for pneumothorax.
--- NOTE | 2023-08-22 09:53 | OP ---
OPERATIVE REPORT DATE OF SERVICE : PREOPERATIVE DIAGNOSIS: Acute on chronic renal failure. POSTOPERATIVE DIAGNOSIS: Acute on chronic renal failure. PROCEDURE PERFORMED: Ultrasound-guided 23 cm dialysis catheter right jugular approach. Patient was brought to the clinical laboratory aides teacher. Right side of the neck and chest was prepped and drapes applied in a sterile manner. 1% lidocaine was infiltrated in the neck and chest area. Ultrasound- guided micropuncture was introduced into the right jugular vein. Micropuncture guidewire was passed and 4-Solomon Islander dilator was advanced on top of the guidewire. A tunnel was created. Through the tunnel, we brought 23 cm dialysis catheter. Guidewire was passed in the inferior vena cava. Dilator was advanced and sheath was advanced on top of the guidewire. Through the sheath, we introduced the dialysis catheter. Tip of the catheter in superior vena cava and atrial junction, flushed with heparin saline and hep-locked, secured with 3-0 nylon. Patient tolerated the procedure well. MMODL / IJN: [id number] /
[2023-08-22] MEDS: SERTRALINE 25 MG TAB PO SCH (10:22)
[2023-08-22] MEDS: TAMSULOSIN 0.4 MG CAP.ER.24H PO SCH (10:22)
[2023-08-22] MEDS: MAGNESIUM OXIDE 400 MG TAB PO SCH (10:22)
[2023-08-22] MEDS: PANTOPRAZOLE 40 MG TABLET PO SCH (10:22)
[2023-08-22] MEDS: allopurinoL 300 MG TAB PO SCH (10:22)
[2023-08-22] MEDS: GABAPENTIN 300 MG CAP PO SCH (10:22)
[2023-08-22] MEDS: SODIUM BICARBONATE TAB 650 MG TAB PO SCH ×3 (10:22→20:48)
[2023-08-22] MEDS: FUROSEMIDE 10 MG/ML 10 ML VIAL IV SCH ×3 (10:22→20:48)
[2023-08-22] MEDS: NYSTATIN 100,000 UNIT/GM POWD 15 GM TOPICAL SCH ×3 (10:23→20:42)
[2023-08-22 10:43] LABS: Glucose,Whole Blood 144 mg/dL (70-110)
--- NOTE | 2023-08-22 11:25 | P.PN ---
Subjective Progress Note Date: 08/22/23 Hospital course: Patient is a 78-year-old female with a past medical history of CAD, sick sinus syndrome status post AICD placement, paroxysmal atrial fibrillation on anticoagulation, hypertension, hyperlipidemia, type 2 insulin-dependent diabetes mellitus, and stage IV chronic kidney disease. Patient was transferred to our facility on 08/06/23 from [facility] secondary to concerns of infected left lower extremity ulcer. 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 Wound culture obtained from left knee positive for pseudomonas aeruginosa and MRSA. Patient with persistent worsening renal function and acute blood loss anemia and anemia of chronic disease. Renal function also continued to worsen. Patient is scheduled for insertion of permacath and initiation of dialysis on 08/22/23. Subjective: Pt rec'd permacath and will undergo dialysis Physical exam: Gen: awake, alert HEENT: normocephalic, atraumatic, good hearing acuity, moist mucous membranes Resp: good air exchange, breathing comfortably with no accessory muscle use CVS: good distal perfusion x 4, GI: soft, NTTP, ND : no SPT, no CVAT, rosales catheter not present MSK: no pitting edema, no clubbing Neuro: non-focal, moving all extremities Psych: cooperative, euthymic mood Assessment and Plan of Care: Acute kidney injury on chronic kidney disease stage IV: Worsening. Patient scheduled to begin dialysis 08/22/23. Oliguria -Nephrology following, discussed plan of care. Patient scheduled to begin dialysis on 08/22/23 as patient received anticoagulant this morning resulting in postponement of insertion of permacath. -Discussed with vascular surgery, plan is to take patient to OR on 08/22/23 for insertion of permacath. Eliquis to be held. -Continue Rosales catheter with Rosales management -Lasix increased to 60 mg IVP every 12 hours. -Continue strict I's and O's, patient has had 275 mL of output over the past 24 hours. 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 Completed 7 days of Cefepime and Daptomycin. 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 Acute blood loss anemia, on chronic anemia: -Anticipated outcome of surgery. Hemoglobin remained stable at 7.0. Repeat CBC tomorrow morning. Transfuse if Hg < 7. Paroxysmal atrial fibrillation, history of sick sinus syndrome status post permanent pacemaker: -Continue daily medication regimen with Coreg 25 mg by mouth twice daily and Eliquis 2.5 mg PO BID Type 2 insulin-dependent diabetes mellitus. -Continue glycemic protocol with NovoLog sliding scale. Hypertension: -Continue daily medication regimen with Coreg 5 mg twice daily and. Hydralazine 75 mg 3 times daily. Dyslipidemia: -Continue daily medication regimen with Lipitor 40 mg nightly. Parkinson's disease with reports of underlying mild Dementia. -Provide safe and supportive care and assistance as needed. Data reviewed: Labs pending. Vital signs reviewed. Blood pressure 92/44, heart rate 65, respiratory rate 17, temp 97.5F, SpO2 of 98% on room air. Urinary Output over the past 24 hours worsening only 275 mL. DVT prophylaxis: Eliquis Anticipated discharge date: Clinical course to determine Anticipated discharge place: Clinical course to determine Objective - Vital Signs Vital signs: Vital Signs Temp 98.1 F 08/22/23 06:53 Pulse 66 08/22/23 06:53 Resp 16 08/22/23 06:53 BP 93/55 08/22/23 06:53 Pulse Ox 97 08/22/23 06:53 FiO2 Intake & Output 08/21/23 08/22/23 08/22/23 18:59 06:59 18:59 Intake Total 50 Output Total 100 100 Balance -100 -100 50 Intake: IV 50 Output: Urine 100 100 Other: Voiding Method Indwelling Catheter Indwelling Catheter - Labs CBC & Chem 7: 08/21/23 17:56 08/21/23 17:56 Labs: Abnormal Lab Results - Last 24 Hours (Table) 08/21/23 08/21/23 08/21/23 Range/Units 16:27 17:56 17:56 RBC 2.19 L (3.80-5.40) m/uL Hgb 7.0 L (11.4-16.0) gm/dL Hct 23.1 L (34.0-46.0) % MCV 105.7 H (80.0-100.0) fL MCHC 30.1 L (31.0-37.0) g/dL RDW 18.2 H (11.5-15.5) % Macrocytosis Marked A Sodium 131 L (137-145) mmol/L Potassium 5.6 H (3.5-5.1) mmol/L Carbon Dioxide 21 L (22-30) mmol/L BUN 80 H (7-17) mg/dL Creatinine 4.90 H (0.52-1.04) mg/dL Glucose 158 H (74-99) mg/dL POC Glucose (mg/dL) 285 H (70-110) mg/dL Calcium 8.2 L (8.4-10.2) mg/dL AST 83 H (14-36) U/L ALT 76 H (4-34) U/L Total Protein 5.3 L (6.3-8.2) g/dL Albumin 2.2 L (3.5-5.0) g/dL 08/21/23 08/22/23 08/22/23 Range/Units 19:59 06:02 10:42 RBC (3.80-5.40) m/uL Hgb (11.4-16.0) gm/dL Hct (34.0-46.0) % MCV (80.0-100.0) fL MCHC (31.0-37.0) g/dL RDW (11.5-15.5) % Macrocytosis Sodium (137-145) mmol/L Potassium (3.5-5.1) mmol/L Carbon Dioxide (22-30) mmol/L BUN (7-17) mg/dL Creatinine (0.52-1.04) mg/dL Glucose (74-99) mg/dL POC Glucose (mg/dL) 194 H 169 H 144 H (70-110) mg/dL Calcium (8.4-10.2) mg/dL AST (14-36) U/L ALT (4-34) U/L Total Protein (6.3-8.2) g/dL Albumin (3.5-5.0) g/dL
--- NOTE | 2023-08-22 12:27 | P.PN ---
Subjective Patient is seen for follow-up for chronic kidney disease with acute kidney injury. Renal function is fairly stable with creatinine staying at 4.1-4.3 mg/dL which is up from her baseline creatinine of about 2.7-3 mg/dL. Being diuresed. Patient has significant lower extremity edema. Patient is not short of breath but remains with significant volume overload. 24 hour urine output at 275 mL. not sure if this is accurate. Indwelling Akhtar catheter present. Patient has been talked to regarding renal replacement therapy. Serum creatinine remains significantly elevated along with persistent volume overload. We need to proceed with starting dialysis. Discussed with son, daughter and [id number] yesterday. Family is agreeable to start renal replacement therapy. Status post permacath placement today. Patient will have her first treatment today Objective - Vital Signs Vital signs: Vital Signs Temp 98.1 F 08/22/23 06:53 Pulse 66 08/22/23 06:53 Resp 16 08/22/23 06:53 BP 93/55 08/22/23 06:53 Pulse Ox 97 08/22/23 06:53 FiO2 Intake & Output 08/21/23 08/22/23 08/22/23 18:59 06:59 18:59 Intake Total 50 Output Total 100 100 Balance -100 -100 50 Weight 83.7 kg Intake: IV 50 Output: Urine 100 100 Other: Voiding Method Indwelling Catheter Indwelling Catheter - Exam Patient is awake, comfortable, no acute distress. Onset questions appropriately. Examination of the heart S1 and S2 Examination of the lungs bilateral breath sounds are heard Abdomen is soft obese, mild tenderness mid abdomen Examination of lower extremities shows 3+ edema bilaterally DEVELOPMENT INTERN exam grossly intact - Labs CBC & Chem 7: 08/21/23 17:56 08/21/23 17:56 Labs: Abnormal Lab Results - Last 24 Hours (Table) 08/21/23 08/21/23 08/21/23 Range/Units 16:27 17:56 17:56 RBC 2.19 L (3.80-5.40) m/uL Hgb 7.0 L (11.4-16.0) gm/dL Hct 23.1 L (34.0-46.0) % MCV 105.7 H (80.0-100.0) fL MCHC 30.1 L (31.0-37.0) g/dL RDW 18.2 H (11.5-15.5) % Macrocytosis Marked A Sodium 131 L (137-145) mmol/L Potassium 5.6 H (3.5-5.1) mmol/L Carbon Dioxide 21 L (22-30) mmol/L BUN 80 H (7-17) mg/dL Creatinine 4.90 H (0.52-1.04) mg/dL Glucose 158 H (74-99) mg/dL POC Glucose (mg/dL) 285 H (70-110) mg/dL Calcium 8.2 L (8.4-10.2) mg/dL AST 83 H (14-36) U/L ALT 76 H (4-34) U/L Total Protein 5.3 L (6.3-8.2) g/dL Albumin 2.2 L (3.5-5.0) g/dL 08/21/23 08/22/23 08/22/23 Range/Units 19:59 06:02 10:42 RBC (3.80-5.40) m/uL Hgb (11.4-16.0) gm/dL Hct (34.0-46.0) % MCV (80.0-100.0) fL MCHC (31.0-37.0) g/dL RDW (11.5-15.5) % Macrocytosis Sodium (137-145) mmol/L Potassium (3.5-5.1) mmol/L Carbon Dioxide (22-30) mmol/L BUN (7-17) mg/dL Creatinine (0.52-1.04) mg/dL Glucose (74-99) mg/dL POC Glucose (mg/dL) 194 H 169 H 144 H (70-110) mg/dL Calcium (8.4-10.2) mg/dL AST (14-36) U/L ALT (4-34) U/L Total Protein (6.3-8.2) g/dL Albumin (3.5-5.0) g/dL Assessment and Plan Assessment: 1. Acute kidney injury secondary to vasomotor nephropathy from diuresis. Renal function gradually worsening with creatinine 4.9 yesterday. Kidneys noted to be atrophic with no evidence of hydronephrosis. Patient remains with significant volume overload. Therefore she will be started on hemodialysis. First treatment today on 08/22/2023 . 2. Left knee infected wound status post [id number] amputation 08/09/2023. 3. Chronic kidney disease stage IV with baseline creatinine 2.3-2.7 secondary to diabetic kidney disease and cardiorenal syndrome. 4. Chronic diastolic CHF. 5. Anemia of chronic kidney disease. Iron deficiency noted. Receiving IV iron. Also on Aranesp. 6. Chronic kidney disease mineral bone disease maintained on calcitriol. 7. Hypertension with chronic kidney disease. Stable. 8. Diabetes mellitus. 9. Urinary retention. Akhtar catheter placed 08/11/2023. On Flomax. 10. Metabolic acidosis secondary to acute kidney injury. On oral bicarb. Plan: Hemodialysis today and in a.m. can use midodrine if blood pressure remains low.
[2023-08-22] MEDS: MIDODRINE 5 MG TAB PO PRN ×2 (12:41→14:55)
[2023-08-22 17:04] LABS: Glucose,Whole Blood 123 mg/dL (70-110)
[2023-08-22] MEDS: LACTATED RINGERS 1,000 ML IV SCH (17:08)
[2023-08-22] MEDS: hydrALAZINE HCL 25 MG TAB PO SCH ×3 (17:13→20:48)
[2023-08-22 19:05] LABS: Glucose,Whole Blood 135 mg/dL (70-110)
[2023-08-22 20:24] LABS: Anisocytosis Slight; HCT 23.2 % (34.0-46.0); HGB 7.1 gm/dL (11.4-16.0); Hypochromasia Marked; MCH 31.5 pg (25.0-35.0); MCHC 30.5 g/dL (31.0-37.0); MCV 103.2 fL (80.0-100.0); Macrocytosis Moderate; Mean Platelet Volume 7.7; Platelet Count 275 k/uL (150-450); RBC 2.25 m/uL (3.80-5.40); RDW 17.9 % (11.5-15.5); WBC 10.3 k/uL (3.8-10.6)
[2023-08-22] MEDS: clonazePAM 0.5 MG TAB PO SCH ×2 (20:41→20:48)
[2023-08-22] MEDS: ATORVASTATIN 40 MG TAB PO SCH ×2 (20:41→20:48)
[2023-08-22 21:05] LABS: ALT 65 U/L (4-34); AST 59 U/L (14-36); African American GFR (CKD) 16 (>60 ml/min/1.73 sqM); Albumin 2.2 g/dL (3.5-5.0); Albumin/Globulin Ratio 0.7; Alkaline Phosphatase 108 U/L (38-126); Anion Gap 8 mmol/L; Blood Urea Nitrogen 52 mg/dL (7-17); Calcium 8.1 mg/dL (8.4-10.2); Carbon Dioxide 24 mmol/L (22-30); Chloride 100 mmol/L (98-107); Glucose 121 mg/dL (74-99); Non-African American GFR(CKD) 14 (>60 ml/min/1.73 sqM); Potassium 4.7 mmol/L (3.5-5.1); Sodium 132 mmol/L (137-145); Total Bilirubin 0.7 mg/dL (0.2-1.3); Total Protein 5.2 g/dL (6.3-8.2)
[2023-08-23 05:26] LABS: Glucose,Whole Blood 168 mg/dL (70-110)
[2023-08-23] MEDS: MIDODRINE 5 MG TAB PO PRN (06:16)
[2023-08-23] MEDS: INSULIN ASPART (NovoLOG) 100 UNIT/ML VIAL SQ SCH ×4 (06:19→21:58)
[2023-08-23] MEDS: carvediloL 6.25 MG TAB PO SCH ×2 (06:19→17:56)
[2023-08-23] MEDS: TAMSULOSIN 0.4 MG CAP.ER.24H PO SCH (11:22)
[2023-08-23] MEDS: allopurinoL 300 MG TAB PO SCH (11:22)
[2023-08-23] MEDS: APIXABAN 2.5 MG TABLET PO SCH ×2 (11:22→21:57)
[2023-08-23 11:23] LABS: Glucose,Whole Blood 130 mg/dL (70-110)
[2023-08-23] MEDS: FUROSEMIDE 10 MG/ML 10 ML VIAL IV SCH ×2 (11:23→21:58)
[2023-08-23] MEDS: MAGNESIUM OXIDE 400 MG TAB PO SCH (11:23)
[2023-08-23] MEDS: NYSTATIN 100,000 UNIT/GM POWD 15 GM TOPICAL SCH ×3 (11:23→21:59)
[2023-08-23] MEDS: hydrALAZINE HCL 25 MG TAB PO SCH (11:23)
[2023-08-23] MEDS: GABAPENTIN 300 MG CAP PO SCH (11:23)
[2023-08-23] MEDS: SERTRALINE 25 MG TAB PO SCH (11:25)
[2023-08-23] MEDS: PANTOPRAZOLE 40 MG TABLET PO SCH (11:25)
[2023-08-23] MEDS: SODIUM BICARBONATE TAB 650 MG TAB PO SCH (11:25)
--- NOTE | 2023-08-23 14:08 | P.PN ---
Subjective Patient is seen for follow-up for chronic kidney disease with acute kidney injury. Renal function had deteriorated with persistent volume overload and therefore patient was started on hemodialysis on a . Patient is seen on hemodialysis receiving her second treatment. Tolerating treatment much better today. Yesterday blood pressure was low. Goal UF today about 800-900 ML. Patient will be scheduled for another treatment tomorrow. Objective - Vital Signs Vital signs: Vital Signs Temp 97.3 F L 08/23/23 12:39 Pulse 76 08/23/23 12:39 Resp 16 08/23/23 12:39 BP 123/54 08/23/23 12:39 Pulse Ox 97 08/23/23 06:54 FiO2 Intake & Output 08/22/23 08/23/23 08/23/23 18:59 06:59 18:59 Intake Total 450 400 400 Output Total 9119 465 4771 Balance -675 200 -700 Weight 83.7 kg Intake: IV 50 Oral 400 Hemodialysis 400 400 Output: Urine 125 200 Hemodialysis 1000 1100 Other: Voiding Method Indwelling Catheter Indwelling Catheter - Exam Patient is awake, comfortable, no acute distress. Onset questions appropriately. 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 - Labs CBC & Chem 7: 08/22/23 20:09 08/22/23 20:09 Labs: Abnormal Lab Results - Last 24 Hours (Table) 08/22/23 08/22/23 08/22/23 Range/Units 17:02 19:04 20:09 RBC 2.25 L (3.80-5.40) m/uL Hgb 7.1 L (11.4-16.0) gm/dL Hct 23.2 L (34.0-46.0) % MCV 103.2 H (80.0-100.0) fL MCHC 30.5 L (31.0-37.0) g/dL RDW 17.9 H (11.5-15.5) % Sodium (137-145) mmol/L BUN (7-17) mg/dL Creatinine (0.52-1.04) mg/dL Glucose (74-99) mg/dL POC Glucose (mg/dL) 123 H 135 H (70-110) mg/dL Calcium (8.4-10.2) mg/dL AST (14-36) U/L ALT (4-34) U/L Total Protein (6.3-8.2) g/dL Albumin (3.5-5.0) g/dL 08/22/23 08/23/23 08/23/23 Range/Units 20:09 05:25 11:23 RBC (3.80-5.40) m/uL Hgb (11.4-16.0) gm/dL Hct (34.0-46.0) % MCV (80.0-100.0) fL MCHC (31.0-37.0) g/dL RDW (11.5-15.5) % Sodium 132 L (137-145) mmol/L BUN 52 H (7-17) mg/dL Creatinine 3.11 H (0.52-1.04) mg/dL Glucose 121 H (74-99) mg/dL POC Glucose (mg/dL) 168 H 130 H (70-110) mg/dL Calcium 8.1 L (8.4-10.2) mg/dL AST 59 H (14-36) U/L ALT 65 H (4-34) U/L Total Protein 5.2 L (6.3-8.2) g/dL Albumin 2.2 L (3.5-5.0) g/dL Assessment and Plan Assessment: 1. Acute kidney injury secondary to vasomotor nephropathy from diuresis. Started on hemodialysis on 08/22/2023 due to persistent volume overload and worsening renal function. Kidneys noted to be atrophic with no evidence of hydronephrosis. 2. Left knee infected wound status post afhti-vzj-susw amputation 08/09/2023. 3. Chronic kidney disease stage IV with baseline creatinine 2.3-2.7 secondary to diabetic kidney disease and cardiorenal syndrome. 4. Chronic diastolic CHF. 5. Anemia of chronic kidney disease. Iron deficiency noted. Receiving IV iron. Also on Aranesp. 6. Chronic kidney disease mineral bone disease maintained on calcitriol. 7. Hypertension with chronic kidney disease. Stable. 8. Diabetes mellitus. 9. Urinary retention. Akhtar catheter placed 08/11/2023. On Flomax. 10. Metabolic acidosis secondary to acute kidney injury. On oral bicarb. Plan: Hemodialysis today and in a.m. can use midodrine if blood pressure remains low. Increase goal UF to about 2 L as tolerated in a.m. DC sodium bicarb
[2023-08-23] MEDS: HYDROcodone/APAP 5-325MG 1 EACH TAB PO PRN (15:54)
[2023-08-23 16:36] LABS: Glucose,Whole Blood 199 mg/dL (70-110)
--- NOTE | 2023-08-23 18:32 | P.PN ---
Subjective Progress Note Date: 08/23/23 Hospital course: Patient is a 78-year-old female with a past medical history of CAD, sick sinus syndrome status post AICD placement, paroxysmal atrial fibrillation on anticoagulation, hypertension, hyperlipidemia, type 2 insulin-dependent diabetes mellitus, and stage IV chronic kidney disease. Patient was transferred to our facility on 08/06/23 from [facility] secondary to concerns of infected left lower extremity ulcer. 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 Wound culture obtained from left knee positive for pseudomonas aeruginosa and MRSA. Patient with persistent worsening renal function and acute blood loss anemia and anemia of chronic disease. Renal function also continued to worsen. Permacath was inserted and dialysis was started on 08/22/23. Physical exam: Patient seen and fully evaluated at bedside this morning. Patient is day 2 of dialysis. She appears to be doing well. Currently denies having any pain or complaints at this time. Vital signs reviewed and stable. General: Nontoxic, no distress and appears stated age. Obese. Derm: Skin warm and dry, normal coloration for ethnicity. Head: Atraumatic, normocephalic and symmetric. Eyes: EOMs intact, no lid lag, and anicteric sclera Mouth: no lip lesions, mucus membranes moist Cardiovascular: regular rate and rhythm with normal S1S2, systolic murmur, dialysis catheter right anterior chest. Lungs: Respirations even, regular, and unlabored on room air. Lungs CTA bilaterally, no rhonchi, no rales, no wheezing, and no accessory muscle usage. Abdominal: Obese abdomen soft, nontender to palpation, no guarding, no appreciable organomegaly Akhtar catheter in place.. Ext: No gross muscle atrophy, no edema, no contractures. Left AKA with dressing intact. Neuro: Speech clear, face symmetrical and CN II-XII grossly intact with no noted focal neuro deficits Psych: Alert and oriented. Appropriate and pleasant affect. Assessment and Plan of Care: Acute kidney injury on chronic kidney disease stage IV: Worsening. Patient scheduled to begin dialysis 08/22/23. Oliguria -Nephrology following, discussed plan of care. -Patient began dialysis on 08/22/23 -Continue Akhtar catheter with Akhtar management -Continue Lasix 60 mg IVP every 12 hours. -Continue strict I's and O's, patient has had 325 mL of output over the past 24 hours. 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 Completed 7 days of Cefepime and Daptomycin. -Vascular surgery clearing patient from their perspective, recommending dressing change daily cleaning with Betadine solution, apply Kerlix and stump property developer with rigid dressing. Acute blood loss anemia, on chronic anemia: -Anticipated outcome of surgery. Hemoglobin remained stable at 7.1. Repeat CBC tomorrow morning. Transfuse if Hg < 7. Paroxysmal atrial fibrillation, history of sick sinus syndrome status post p ermanent pacemaker: -Continue daily medication regimen with Coreg 25 mg by mouth twice daily and El iquis 2.5 mg PO BID Type 2 insulin-dependent diabetes mellitus. -Continue glycemic protocol with NovoLog sliding scale. Hypertension: -Continue daily medication regimen with Coreg 5 mg twice daily and. Hydralazine 75 mg 3 times daily. Dyslipidemia: -Continue daily medication regimen with Lipitor 40 mg nightly. Parkinson's disease with reports of underlying mild Dementia. -Provide safe and supportive care and assistance as needed. Data reviewed: -CBC showing stable macrocytic anemia with hemoglobin of 7.1. BMP showing mild hyponatremia with sodium 132, BUN 52, creatinine 3.11, GFR 14. -Vital signs reviewed. Blood pressure 137/74, heart rate 78, respiratory rate 19, temp 98.4F, SpO2 of 97% on room air. -Urinary Output over the past 24 hours worsening only 325 mL. DVT prophylaxis: Krystaqubertrand Anticipated discharge date: Clinical course to determine Anticipated discharge place: Clinical course to determine Patient was seen independently by Nurse Pracitioner. This document was prepared using Sj[employer] dictation software. Please allow for errors in beater head, while rare they do occur. I reviewed the documentation as provided by the SURESH above, who is the original author of this note. I agree with the documented assessment and plan, with the following changes: none Objective - Vital Signs Vital signs: Vital Signs Temp 98.4 F 08/23/23 06:54 Pulse 78 08/23/23 06:54 Resp 19 08/23/23 06:54 BP 137/74 08/23/23 06:54 Pulse Ox 97 08/23/23 06:54 FiO2 Intake & Output 08/22/23 08/23/23 08/23/23 18:59 06:59 18:59 Intake Total 450 400 Output Total 1125 200 Balance -675 200 Weight 83.7 kg Intake: IV 50 Oral 400 Hemodialysis 400 Output: Urine 125 200 Hemodialysis 1000 Other: Voiding Method Indwelling Catheter Indwelling Catheter - Labs CBC & Chem 7: 08/24/23 13:07 08/24/23 06:38 Labs: Abnormal Lab Results - Last 24 Hours (Table) 08/22/23 08/22/23 08/22/23 Range/Units 10:42 17:02 19:04 RBC (3.80-5.40) m/uL Hgb (11.4-16.0) gm/dL Hct (34.0-46.0) % MCV (80.0-100.0) fL MCHC (31.0-37.0) g/dL RDW (11.5-15.5) % Sodium (137-145) mmol/L BUN (7-17) mg/dL Creatinine (0.52-1.04) mg/dL Glucose (74-99) mg/dL POC Glucose (mg/dL) 144 H 123 H 135 H (70-110) mg/dL Calcium (8.4-10.2) mg/dL AST (14-36) U/L ALT (4-34) U/L Total Protein (6.3-8.2) g/dL Albumin (3.5-5.0) g/dL 08/22/23 08/22/23 08/23/23 Range/Units 20:09 20:09 05:25 RBC 2.25 L (3.80-5.40) m/uL Hgb 7.1 L (11.4-16.0) gm/dL Hct 23.2 L (34.0-46.0) % MCV 103.2 H (80.0-100.0) fL MCHC 30.5 L (31.0-37.0) g/dL RDW 17.9 H (11.5-15.5) % Sodium 132 L (137-145) mmol/L BUN 52 H (7-17) mg/dL Creatinine 3.11 H (0.52-1.04) mg/dL Glucose 121 H (74-99) mg/dL POC Glucose (mg/dL) 168 H (70-110) mg/dL Calcium 8.1 L (8.4-10.2) mg/dL AST 59 H (14-36) U/L ALT 65 H (4-34) U/L Total Protein 5.2 L (6.3-8.2) g/dL Albumin 2.2 L (3.5-5.0) g/dL
[2023-08-23] MEDS: MORPHINE SULFATE 2 MG/ML SYRINGE IVP PRN (19:47)
[2023-08-23 20:06] LABS: Glucose,Whole Blood 163 mg/dL (70-110)
[2023-08-23] MEDS: clonazePAM 0.5 MG TAB PO SCH (21:57)
[2023-08-23] MEDS: ATORVASTATIN 40 MG TAB PO SCH (21:57)
[2023-08-24] MEDS: MORPHINE SULFATE 2 MG/ML SYRINGE IVP PRN (03:55)
[2023-08-24 06:13] LABS: Glucose,Whole Blood 130 mg/dL (70-110)
[2023-08-24] MEDS: carvediloL 6.25 MG TAB PO SCH ×3 (06:32→18:56)
[2023-08-24] MEDS: INSULIN ASPART (NovoLOG) 100 UNIT/ML VIAL SQ SCH ×4 (06:36→20:39)
[2023-08-24] MEDS: PANTOPRAZOLE 40 MG TABLET PO SCH (08:31)
[2023-08-24] MEDS: FUROSEMIDE 10 MG/ML 10 ML VIAL IV SCH ×2 (08:31→20:39)
[2023-08-24] MEDS: APIXABAN 2.5 MG TABLET PO SCH ×2 (08:31→20:38)
[2023-08-24] MEDS: MAGNESIUM OXIDE 400 MG TAB PO SCH (08:31)
[2023-08-24] MEDS: TAMSULOSIN 0.4 MG CAP.ER.24H PO SCH (08:31)
[2023-08-24] MEDS: GABAPENTIN 300 MG CAP PO SCH (08:31)
[2023-08-24] MEDS: HYDROcodone/APAP 5-325MG 1 EACH TAB PO PRN ×2 (08:31→20:38)
[2023-08-24] MEDS: allopurinoL 300 MG TAB PO SCH (08:31)
[2023-08-24] MEDS: SERTRALINE 25 MG TAB PO SCH (08:32)
[2023-08-24] MEDS: MIDODRINE 5 MG TAB PO PRN ×2 (08:32→09:48)
[2023-08-24 11:25] LABS: HCT 20.1 % (37.2-46.3); HGB 6.1 g/dL (12.0-15.0); MCH 30.7 pg (27.0-32.0); MCHC 30.3 g/dL (32.0-37.0); Mean Platelet Volume 10.3 FL (9.5-12.2); NRBC Per 100 WBC 0 X 10*3/uL (0.00-0.01); Platelet Count 250 X 10*3/uL (140-440); RBC 1.99 X 10*6/uL (4.10-5.20); WBC 10.45 X 10*3/uL (4.50-10.00)
[2023-08-24 11:28] LABS: Glucose,Whole Blood 138 mg/dL (70-110)
[2023-08-24 11:30] LABS: ALT 40 U/L (8-44); AST 31 U/L (13-35); Albumin 2.2 g/dL (3.8-4.9); Albumin/Globulin Ratio 0.85 Ratio (1.60-3.17); Alkaline Phosphatase 98 U/L (41-126); BUN/Creat Ratio 11.61 Ratio (12.00-20.00); Blood Urea Nitrogen 32.5 mg/dL (9.0-27.0); Carbon Dioxide 26.4 mmol/L (21.6-31.8); Chloride 99 mmol/L (96-109); Globulin 2.6 g/dL (1.6-3.3); Glucose 113 mg/dL (70-110); Potassium 4.2 mmol/L (3.5-5.5); Sodium 134 mmol/L (135-145); Total Bilirubin 0.5 mg/dL (0.3-1.2); Total Protein 4.8 g/dL (6.2-8.2)
[2023-08-24] MEDS: NYSTATIN 100,000 UNIT/GM POWD 15 GM TOPICAL SCH ×2 (11:40→16:41)
--- NOTE | 2023-08-24 12:34 | P.PN ---
Subjective Patient is seen for follow-up for chronic kidney disease with acute kidney injury. Renal function had deteriorated with persistent volume overload and therefore patient was started on hemodialysis on a . Patient is seen on hemodialysis receiving her third treatment. Tolerating treatment fairly okay. Patient will be scheduled for next treatment on 08/26/2023 Objective - Vital Signs Vital signs: Vital Signs Temp 97.8 F 08/24/23 07:00 Pulse 67 08/24/23 07:00 Resp 16 08/24/23 07:00 BP 112/63 08/24/23 07:00 Pulse Ox 98 08/24/23 07:00 FiO2 Intake & Output 08/23/23 08/24/23 08/24/23 18:59 06:59 18:59 Intake Total 400 Output Total 1100 170 Balance -700 -170 Intake: Hemodialysis 400 Output: Urine 170 Hemodialysis 1100 Other: Voiding Method Indwelling Catheter Indwelling Catheter - Exam Patient is awake, comfortable, no acute distress. Answers questions appropriately. Examination of the heart S1 and S2 Examination of the lungs bilateral breath sounds are heard Abdomen is soft obese, mild tenderness mid abdomen Examination of lower extremities shows 3+ edema bilaterally STEAM CLOTHES PRESS OPERATOR exam grossly intact - Labs CBC & Chem 7: 08/24/23 06:38 08/24/23 06:38 Labs: Abnormal Lab Results - Last 24 Hours (Table) 08/23/23 08/23/23 08/24/23 Range/Units 16:34 20:04 06:11 WBC (4.50-10.00) X 10*3/uL RBC (4.10-5.20) X 10*6/uL Hgb (12.0-15.0) g/dL Hct (37.2-46.3) % MCV (80.0-97.0) FL MCHC (32.0-37.0) g/dL RDW (11.5-14.5) % Sodium (135-145) mmol/L BUN (9.0-27.0) mg/dL Creatinine (0.6-1.5) mg/dL Est GFR (CKD-EPI) (>=60) BUN/Creatinine Ratio (12.00-20.00) Ratio Glucose (70-110) mg/dL POC Glucose (mg/dL) 199 H 163 H 130 H (70-110) mg/dL Calcium (8.7-10.3) mg/dL Total Protein (6.2-8.2) g/dL Albumin (3.8-4.9) g/dL Albumin/Globulin Ratio (1.60-3.17) Ratio 08/24/23 08/24/23 08/24/23 Range/Units 06:38 06:38 11:26 WBC 10.45 H (4.50-10.00) X 10*3/uL RBC 1.99 L (4.10-5.20) X 10*6/uL Hgb 6.1 A* (12.0-15.0) g/dL Hct 20.1 L (37.2-46.3) % MCV 101.0 H (80.0-97.0) FL MCHC 30.3 L (32.0-37.0) g/dL RDW 18.0 H (11.5-14.5) % Sodium 134 L (135-145) mmol/L BUN 32.5 H (9.0-27.0) mg/dL Creatinine 2.8 H (0.6-1.5) mg/dL Est GFR (CKD-EPI) 17 L (>=60) BUN/Creatinine Ratio 11.61 L (12.00-20.00) Ratio Glucose 113 H (70-110) mg/dL POC Glucose (mg/dL) 138 H (70-110) mg/dL Calcium 8.0 L (8.7-10.3) mg/dL Total Protein 4.8 L (6.2-8.2) g/dL Albumin 2.2 L (3.8-4.9) g/dL Albumin/Globulin Ratio 0.85 L (1.60-3.17) Ratio Assessment and Plan Assessment: 1. Acute kidney injury secondary to vasomotor nephropathy from diuresis. Started on hemodialysis on 08/22/2023 due to persistent volume overload and worsening renal function. Kidneys noted to be atrophic with no evidence of hydronephrosis. 2. Left knee infected wound status post [id number] amputation 08/09/2023. 3. Chronic kidney disease stage IV with baseline creatinine 2.3-2.7 secondary to diabetic kidney disease and cardiorenal syndrome. 4. Chronic diastolic CHF. 5. Anemia of chronic kidney disease. Iron deficiency noted. Receiving IV iron. Also on Aranesp. 6. Chronic kidney disease mineral bone disease maintained on calcitriol. 7. Hypertension with chronic kidney disease. Stable. 8. Diabetes mellitus. 9. Urinary retention. Akhtar catheter placed 08/11/2023. On Flomax. 10. Metabolic acidosis secondary to acute kidney injury. On oral bicarb. Plan: Hemodialysis today and and then again on 08/26/2023 can use midodrine if blood pressure remains low. Increase goal UF to about 2 L as tolerated
[2023-08-24 14:24] LABS: Anisocytosis Slight; Basophils % (A) 0 %; Eosinophils # (A) 0.2 k/uL (0-0.7); Eosinophils % (A) 2 %; HCT 21.2 % (34.0-46.0); Hypochromasia Marked; Lymphocytes # (A) 1.5 k/uL (1.0-4.8); Lymphocytes % (A) 17 %; MCH 31.2 pg (25.0-35.0); MCHC 30.8 g/dL (31.0-37.0); MCV 101.1 fL (80.0-100.0); Macrocytosis Moderate; Mean Platelet Volume 8.2; Monocytes # (A) 0.6 k/uL (0-1.0); Monocytes % (A) 6 %; Neutrophils # (A) 6.4 k/uL (1.3-7.7); Neutrophils % (A) 74 %; Platelet Count 239 k/uL (150-450); Poikilocytosis Slight; RDW 18.2 % (11.5-15.5); WBC 8.7 k/uL (3.8-10.6)
[2023-08-24 14:30] LABS: HGB 6.5 gm/dL (11.4-16.0)
--- NOTE | 2023-08-24 16:00 | P.PN ---
Subjective Progress Note Date: 08/24/23 Hospital course: Patient is a 78-year-old female with a past medical history of CAD, sick sinus syndrome status post AICD placement, paroxysmal atrial fibrillation on anticoagulation, hypertension, hyperlipidemia, type 2 insulin-dependent diabetes mellitus, and stage IV chronic kidney disease. Patient was transferred to our facility on 08/06/23 from [facility] secondary to concerns of infected left lower extremity ulcer. 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 Wound culture obtained from left knee positive for pseudomonas aeruginosa and MRSA. Patient with persistent worsening renal function and acute blood loss anemia and anemia of chronic disease. Renal function also continued to worsen. Permacath was inserted and dialysis was started on 08/22/23. Physical exam: Patient seen and fully evaluated at bedside this morning. Patient is day 3/3 of dialysis with next scheduled day for dialysis treatment being Sunday08/26/23.. She appears to be doing well. Currently denies having any pain or complaints at this time. Vital signs reviewed and stable. General: Nontoxic, no distress and appears stated age. Obese. Derm: Skin warm and dry, normal coloration for ethnicity. Head: Atraumatic, normocephalic and symmetric. Eyes: EOMs intact, no lid lag, and anicteric sclera Mouth: no lip lesions, mucus membranes moist Cardiovascular: regular rate and rhythm with normal S1S2, systolic murmur, dialysis catheter right anterior chest. Lungs: Respirations even, regular, and unlabored on room air. Lungs CTA bilaterally, no rhonchi, no rales, no wheezing, and no accessory muscle usage. Abdominal: Obese abdomen soft, nontender to palpation, no guarding, no appreciable organomegaly Akhtar catheter in place.. Ext: No gross muscle atrophy, no edema, no contractures. Left AKA with dressing intact. Neuro: Speech clear, face symmetrical and CN II-XII grossly intact with no noted focal neuro deficits Psych: Alert and oriented. Appropriate and pleasant affect. Assessment and Plan of Care: Acute kidney injury on chronic kidney disease stage IV: Worsening. Patient began dialysis 08/22/23. Oliguria -Nephrology following, discussed plan of care. -Patient began dialysis on 08/22/23 and just completed day 3/3 of dialysis with next scheduled dialysis treatment being Sunday08/26/23.. -Continue Akhtar catheter with Akhtar management -Continue Lasix 60 mg IVP every 12 hours. -Continue strict I's and O's, patient has had 170 mL of output over the past 24 hours. Acute on chronic anemia. Patient with anemia of chronic disease secondary to ESRD however did experience mild acute on chronic anemia status post left AKA. -Hemoglobin decreasing from 7.1 down to 6.1. Order placed for stat repeat CBC for verification which resulted at 6.5. Order placed for transfusion of 1 unit PRBCs. -No active signs of bleeding at this time. We will continue to monitor closely with repeat CBC and transfuse as needed for hemoglobin less than 7. -Continue Anaresp 40 mcg subcutaneously every 7 days. 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 Completed 7 days of Cefepime and Daptomycin. 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 Paroxysmal atrial fibrillation, history of sick sinus syndrome status post permanent pacemaker: -Continue daily medication regimen with Coreg 25 mg by mouth twice daily and Eliquis 2.5 mg PO BID Type 2 insulin-dependent diabetes mellitus. -Continue glycemic protocol with NovoLog sliding scale. Hypertension: -Continue daily medication regimen with Coreg 5 mg twice daily and. Hydralazine 75 mg 3 times daily. Dyslipidemia: -Continue daily medication regimen with Lipitor 40 mg nightly. Parkinson's disease with reports of underlying mild Dementia. -Provide safe and supportive care and assistance as needed. Data reviewed: -CBC showing acute on chronic anemia with hemoglobin of 6.1. We will replace her transfusion 1 unit PRBCs. -Vital signs reviewed. Blood pressure 112/63, heart rate 67, respiratory rate 16, temp 97.8F, SpO2 of 98% on room air. -Urinary Output over the past 24 hours worsening only 170 mL. DVT prophylaxis: Eliquis Anticipated discharge date: Clinical course to determine Anticipated discharge place: Clinical course to determine Patient was seen independently by Nurse Pracitioner. This document was prepared using [employer] dictation software. Please allow for errors in mortgage funder, while rare they do occur. I reviewed the documentation as provided by the SURESH above, who is the original a uthor of this note. I agree with the documented assessment and plan, with the following changes: none Objective - Vital Signs Vital signs: Vital Signs Temp 97.7 F 08/24/23 13:29 Pulse 70 08/24/23 13:29 Resp 16 08/24/23 13:29 BP 134/61 08/24/23 13:29 Pulse Ox 98 08/24/23 13:29 FiO2 Intake & Output 08/23/23 08/24/23 08/24/23 18:59 06:59 18:59 Intake Total 400 400 Output Total 8669 872 3969 Balance -700 170 -2000 Weight 83.7 kg Intake: Hemodialysis 400 400 Output: Urine 170 Hemodialysis 1100 2400 Other: Voiding Method Indwelling Catheter Indwelling Catheter - Labs CBC & Chem 7: 08/24/23 13:07 08/24/23 06:38 Labs: Abnormal Lab Results - Last 24 Hours (Table) 08/23/23 08/23/23 08/24/23 Range/Units 16:34 20:04 06:11 WBC (4.50-10.00) X 10*3/uL RBC (4.10-5.20) X 10*6/uL Hgb (12.0-15.0) g/dL Hct (37.2-46.3) % MCV (80.0-97.0) FL MCHC (32.0-37.0) g/dL RDW (11.5-14.5) % Sodium (135-145) mmol/L BUN (9.0-27.0) mg/dL Creatinine (0.6-1.5) mg/dL Est GFR (CKD-EPI) (>=60) BUN/Creatinine Ratio (12.00-20.00) Ratio Glucose (70-110) mg/dL POC Glucose (mg/dL) 199 H 163 H 130 H (70-110) mg/dL Calcium (8.7-10.3) mg/dL Total Protein (6.2-8.2) g/dL Albumin (3.8-4.9) g/dL Albumin/Globulin Ratio (1.60-3.17) Ratio 08/24/23 08/24/23 08/24/23 Range/Units 06:38 06:38 11:26 WBC 10.45 H (4.50-10.00) X 10*3/uL RBC 1.99 L (4.10-5.20) X 10*6/uL Hgb 6.1 A* (12.0-15.0) g/dL Hct 20.1 L (37.2-46.3) % MCV 101.0 H (80.0-97.0) FL MCHC 30.3 L (32.0-37.0) g/dL RDW 18.0 H (11.5-14.5) % Sodium 134 L (135-145) mmol/L BUN 32.5 H (9.0-27.0) mg/dL Creatinine 2.8 H (0.6-1.5) mg/dL Est GFR (CKD-EPI) 17 L (>=60) BUN/Creatinine Ratio 11.61 L (12.00-20.00) Ratio Glucose 113 H (70-110) mg/dL POC Glucose (mg/dL) 138 H (70-110) mg/dL Calcium 8.0 L (8.7-10.3) mg/dL Total Protein 4.8 L (6.2-8.2) g/dL Albumin 2.2 L (3.8-4.9) g/dL Albumin/Globulin Ratio 0.85 L (1.60-3.17) Ratio 08/24/ Range/Units 13:07 WBC (4.50-10.00) X 10*3/uL RBC 2.10 L (4.10-5.20) X 10*6/uL Hgb 6.5 L* (12.0-15.0) g/dL Hct 21.2 L (37.2-46.3) % MCV 101.1 H (80.0-97.0) FL MCHC 30.8 L (32.0-37.0) g/dL RDW 18.2 H (11.5-14.5) % Sodium (135-145) mmol/L BUN (9.0-27.0) mg/dL Creatinine (0.6-1.5) mg/dL Est GFR (CKD-EPI) (>=60) BUN/Creatinine Ratio (12.00-20.00) Ratio Glucose (70-110) mg/dL POC Glucose (mg/dL) (70-110) mg/dL Calcium (8.7-10.3) mg/dL Total Protein (6.2-8.2) g/dL Albumin (3.8-4.9) g/dL Albumin/Globulin Ratio (1.60-3.17) Ratio
[2023-08-24 16:35] LABS: Glucose,Whole Blood 139 mg/dL (70-110)
[2023-08-24 20:00] LABS: Glucose,Whole Blood 169 mg/dL (70-110)
[2023-08-24] MEDS: ATORVASTATIN 40 MG TAB PO SCH (20:38)
[2023-08-24] MEDS: clonazePAM 0.5 MG TAB PO SCH (20:38)
[2023-08-25] MEDS: HYDROcodone/APAP 5-325MG 1 EACH TAB PO PRN ×2 (06:07→17:02)
[2023-08-25] MEDS: carvediloL 6.25 MG TAB PO SCH ×2 (06:08→17:02)
[2023-08-25 06:13] LABS: Glucose,Whole Blood 115 mg/dL (70-110)
[2023-08-25] MEDS: INSULIN ASPART (NovoLOG) 100 UNIT/ML VIAL SQ SCH ×4 (06:25→19:56)
[2023-08-25] MEDS: APIXABAN 2.5 MG TABLET PO SCH ×2 (07:53→19:55)
[2023-08-25] MEDS: PANTOPRAZOLE 40 MG TABLET PO SCH (07:53)
[2023-08-25] MEDS: allopurinoL 300 MG TAB PO SCH (07:53)
[2023-08-25] MEDS: MAGNESIUM OXIDE 400 MG TAB PO SCH (07:53)
[2023-08-25] MEDS: GABAPENTIN 300 MG CAP PO SCH (07:53)
[2023-08-25] MEDS: SERTRALINE 25 MG TAB PO SCH (07:54)
[2023-08-25] MEDS: TAMSULOSIN 0.4 MG CAP.ER.24H PO SCH (07:54)
[2023-08-25] MEDS: FUROSEMIDE 10 MG/ML 10 ML VIAL IV SCH ×2 (07:54→19:55)
[2023-08-25 09:50] LABS: ALT 35 U/L (8-44); AST 28 U/L (13-35); Albumin 2.3 g/dL (3.8-4.9); Albumin/Globulin Ratio 0.85 Ratio (1.60-3.17); Alkaline Phosphatase 101 U/L (41-126); BUN/Creat Ratio 9.76 Ratio (12.00-20.00); Blood Urea Nitrogen 20.5 mg/dL (9.0-27.0); Calcium 8.1 mg/dL (8.7-10.3); Carbon Dioxide 28.8 mmol/L (21.6-31.8); Chloride 99 mmol/L (96-109); Globulin 2.7 g/dL (1.6-3.3); Glucose 107 mg/dL (70-110); Potassium 4.2 mmol/L (3.5-5.5); Sodium 134 mmol/L (135-145); Total Bilirubin 0.7 mg/dL (0.3-1.2)
[2023-08-25 09:52] LABS: HCT 26.2 % (37.2-46.3); HGB 8.1 g/dL (12.0-15.0); MCH 29.7 pg (27.0-32.0); MCHC 30.9 g/dL (32.0-37.0); Mean Platelet Volume 10.4 FL (9.5-12.2); NRBC Per 100 WBC 0.02 X 10*3/uL (0.00-0.01); Platelet Count 246 X 10*3/uL (140-440); RBC 2.73 X 10*6/uL (4.10-5.20); RDW 22.2 % (11.5-14.5); WBC 10.56 X 10*3/uL (4.50-10.00)
--- NOTE | 2023-08-25 11:05 | P.PN ---
Subjective Patient is seen for follow-up for chronic kidney disease with acute kidney injury. Renal function had deteriorated with persistent volume overload and therefore patient was started on hemodialysis on 08/22/2023 Status post UF of 2.4 L with hemodialysis yesterday Patient will be scheduled for next treatment on 08/26/2023 Objective - Vital Signs Vital signs: Vital Signs Temp 98.5 F 08/25/23 08:04 Pulse 74 08/25/23 08:04 Resp 16 08/25/23 08:04 BP 149/74 08/25/23 08:04 Pulse Ox 96 08/25/23 08:04 FiO2 Intake & Output 08/24/23 08/25/23 08/25/23 18:59 06:59 18:59 Intake Total 400 860 Output Total 2400 100 Balance -1999 760 Weight 83.7 kg Intake: Oral 240 Blood Product 0 620 Rc As-1 Unit 0 310 [id number] Hemodialysis 400 Output: Urine 100 Hemodialysis 2400 Other: Voiding Method Indwelling Catheter Indwelling Catheter # Bowel Movements 1 - Exam Patient is awake, comfortable, no acute distress. Answers questions appropriately. Examination of the heart S1 and S2 Examination of the lungs bilateral breath sounds are heard Abdomen is soft obese, mild tenderness mid abdomen Examination of lower extremities shows 3+ edema bilaterally LITIGATION EXAMINER exam grossly intact - Labs CBC & Chem 7: 08/25/23 05:22 08/25/23 05:22 Labs: Abnormal Lab Results - Last 24 Hours (Table) 08/24/23 08/24/23 08/24/23 Range/Units 06:38 06:38 11:26 WBC 10.45 H (4.50-10.00) X 10*3/uL RBC 1.99 L (4.10-5.20) X 10*6/uL Hgb 6.1 A* (12.0-15.0) g/dL Hct 20.1 L (37.2-46.3) % MCV 101.0 H (80.0-97.0) FL MCHC 30.3 L (32.0-37.0) g/dL RDW 18.0 H (11.5-14.5) % NRBC/100 WBC Diff (0.00-0.01) X 10*3/uL Sodium 134 L (135-145) mmol/L BUN 32.5 H (9.0-27.0) mg/dL Creatinine 2.8 H (0.6-1.5) mg/dL Est GFR (CKD-EPI) 17 L (>=60) BUN/Creatinine Ratio 11.61 L (12.00-20.00) Ratio Glucose 113 H (70-110) mg/dL POC Glucose (mg/dL) 138 H (70-110) mg/dL Calcium 8.0 L (8.7-10.3) mg/dL Total Protein 4.8 L (6.2-8.2) g/dL Albumin 2.2 L (3.8-4.9) g/dL Albumin/Globulin Ratio 0.85 L (1.60-3.17) Ratio Crossmatch 08/24/23 08/24/23 08/24/23 Range/Units 13:07 15:36 16:32 WBC (4.50-10.00) X 10*3/uL RBC 2.10 L (4.10-5.20) X 10*6/uL Hgb 6.5 L* (12.0-15.0) g/dL Hct 21.2 L (37.2-46.3) % MCV 101.1 H (80.0-97.0) FL MCHC 30.8 L (32.0-37.0) g/dL RDW 18.2 H (11.5-14.5) % NRBC/100 WBC Diff (0.00-0.01) X 10*3/uL Sodium (135-145) mmol/L BUN (9.0-27.0) mg/dL Creatinine (0.6-1.5) mg/dL Est GFR (CKD-EPI) (>=60) BUN/Creatinine Ratio (12.00-20.00) Ratio Glucose (70-110) mg/dL POC Glucose (mg/dL) 139 H (70-110) mg/dL Calcium (8.7-10.3) mg/dL Total Protein (6.2-8.2) g/dL Albumin (3.8-4.9) g/dL Albumin/Globulin Ratio (1.60-3.17) Ratio Crossmatch See Detail 08/24/23 08/25/23 08/25/23 Range/Units 19:58 05:22 05:22 WBC 10.56 H (4.50-10.00) X 10*3/uL RBC 2.73 L (4.10-5.20) X 10*6/uL Hgb 8.1 L (12.0-15.0) g/dL Hct 26.2 L (37.2-46.3) % MCV (80.0-97.0) FL MCHC 30.9 L (32.0-37.0) g/dL RDW 22.2 H (11.5-14.5) % NRBC/100 WBC Diff 0.02 H (0.00-0.01) X 10*3/uL Sodium 134 L (135-145) mmol/L BUN (9.0-27.0) mg/dL Creatinine 2.1 H (0.6-1.5) mg/dL Est GFR (CKD-EPI) 23 L (>=60) BUN/Creatinine Ratio 9.76 L (12.00-20.00) Ratio Glucose (70-110) mg/dL POC Glucose (mg/dL) 169 H (70-110) mg/dL Calcium 8.1 L (8.7-10.3) mg/dL Total Protein 5.0 L (6.2-8.2) g/dL Albumin 2.3 L (3.8-4.9) g/dL Albumin/Globulin Ratio 0.85 L (1.60-3.17) Ratio Crossmatch 08/25/23 Range/Units 06:11 WBC (4.50-10.00) X 10*3/uL RBC (4.10-5.20) X 10*6/uL Hgb (12.0-15.0) g/dL Hct (37.2-46.3) % MCV (80.0-97.0) FL MCHC (32.0-37.0) g/dL RDW (11.5-14.5) % NRBC/100 WBC Diff (0.00-0.01) X 10*3/uL Sodium (135-145) mmol/L BUN (9.0-27.0) mg/dL Creatinine (0.6-1.5) mg/dL Est GFR (CKD-EPI) (>=60) BUN/Creatinine Ratio (12.00-20.00) Ratio Glucose (70-110) mg/dL POC Glucose (mg/dL) 115 H (70-110) mg/dL Calcium (8.7-10.3) mg/dL Total Protein (6.2-8.2) g/dL Albumin (3.8-4.9) g/dL Albumin/Globulin Ratio (1.60-3.17) Ratio Crossmatch Assessment and Plan Assessment: 1. Acute kidney injury secondary to vasomotor nephropathy from diuresis. Start ed on hemodialysis on 08/22/2023 due to persistent volume overload and worsening renal function. Kidneys noted to be atrophic with no evidence of hydronephrosis. 2. Left knee infected wound status post [id number] amputation 08/09/2023. 3. Chronic kidney disease stage IV with baseline creatinine 2.3-2.7 secondary to diabetic kidney disease and cardiorenal syndrome. 4. Chronic diastolic CHF. 5. Anemia of chronic kidney disease. Iron deficiency noted. Receiving IV iron. Also on Aranesp. 6. Chronic kidney disease mineral bone disease maintained on calcitriol. 7. Hypertension with chronic kidney disease. Stable. 8. Diabetes mellitus. 9. Urinary retention. Akhtar catheter placed 08/11/2023. On Flomax. 10. Metabolic acidosis secondary to acute kidney injury. On oral bicarb. Plan: Hemodialysis in a.m. can use midodrine if blood pressure remains low. Increase goal UF to about 2 L as tolerated
[2023-08-25 12:00] LABS: Glucose,Whole Blood 152 mg/dL (70-110)
--- NOTE | 2023-08-25 12:32 | P.PN ---
Subjective Progress Note Date: 08/25/23 Patient is an 78-year-old female with diabetes mellitus type 2, paroxysmal atrial fibrillation, Parkinson's, seizure disorder, sick sinus syndrome status post pacemaker, and chronic kidney disease stage III as well as other comorbid conditions who presented to the ER at the direction of Dr. Jones. Patient has a remote history of a left total knee replacement done an outside hospital. She ultimately developed a periprosthetic joint infection which required several attempts at infection control with placement of a static antibiotic spacer. After her last surgery she was informed by family that she would likely need an above knee amputation for infection recurred. Recently the patient developed a draining sinus over the anterior aspect of the knee will stay on her senior care when she therefore was referred to Dr. Jones. He recommended admitting the patient for possible AKA prior to her becoming systemically ill from the underlying infection. On arrival to the ER she was hypertensive with a blood pressure of 198/86. Laboratory analysis was remarkable for white blood cell count 10.7, BUN 44, creatinine 2.64. She is admitted for acute on chronic knee infection. She was started on vancomycin and Zosyn. She was seen by vascular surgery. She underwent AKA on 08/09/23. She was seen by ID and her antibiotic were optimized to cefepime and daptomycin. Currently, she has completed 7 days of Cefepime and Daptomycin. She continues to have worsening renal function, Nephrology was consulted. She was given intermittent Lasix for fluid overload. Renal function worsened. Started on HD on 08/22. She was given 2 unit of PRBC for acute blood loss anemia on 08/10 and 08/24. 08/25 Patient was seen and examined. No complaints. Underwent 3 HD treatments so far. Scheduled for HD on 08/26. 1.1 L from HD on 08/24. Currently on Lasix 60 mg IV BID. CBC WBC 10.56 Hg 8.1 Hct 26.2. BMP Na 13, Cr 2.1, Ca 8.1, alb 2.3. Vital signs reviewed General: nontoxic, no distress, appears at stated age Cardiovascular: S1S2 reg, no murmur Lungs: Decreased bs bilateral, no rhonchi, no rales , no accessory muscle use Abdominal: soft, nontender to palpation, no guarding, no appreciable organomegaly Ext: no gross muscle atrophy, LLE with stem marine geologist in place no contractures Neuro: no focal neuro deficits Psych: Alert, oriented, appropriate affect Based on my assessment of this patient, this patient meets a moderate complexity level of care. 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 Completed 7 days of Cefepime and Daptomycin. Acute blood loss anemia, on chronic anemia: Anticipated outcome of surgery. Repe at CBC tomorrow morning. Transfuse if Hg < 7. Acute kidney injury on chronic kidney disease stage IV: Nephrology on board. HD catheter placed 08/22. HD tomorrow. Repeat BMP tomorrow morning. Paroxysmal atrial fibrillation, history of sick sinus syndrome status post permanent pacemaker: Coreg 6.25 mg by mouth twice daily. Eliquis 2.5 mg PO BID for AC. Parkinson's disease Hypertension: Coreg as above. Dyslipidemia: Lipitor 40 mg PO QHS. Dementia Diabetes mellitus type 2: ISS. Accuchecks ACHS. Hypoglycemic precautions. Urinary retention: Akhtar placed 08/11. CODE STATUS: DVT Prophylaxis: Eliquis GI Prophylaxis: Protonix Designated medical POA if patient is not able to make medical decisions for themselves: I have reviewed the following mining consultant notes: Nephrology note. I have reviewed the results of the following tests: I have ordered the following tests: Pending: CBC, BMP. I have discussed the care of this patient with the following independent historian: I have independently interpreted the following test below: I have discussed the management of this patient with the following physician: Monitor daily electrolytes as patient is on Lasix. Objective - Vital Signs Vital signs: Vital Signs Temp 98.0 F 08/25/23 02:18 Pulse 74 08/25/23 06:05 Resp 16 08/25/23 02:18 BP 114/49 08/25/23 06:05 Pulse Ox 100 08/25/23 02:18 FiO2 Intake & Output 08/24/23 08/25/23 08/25/23 18:59 06:59 18:59 Intake Total 400 860 Output Total 2400 100 Balance -2000 760 Weight 83.7 kg Intake: Oral 240 Blood Product 0 620 Rc As-1 Unit 0 310 [id number] Hemodialysis 400 Output: Urine 100 Hemodialysis 2400 Other: Voiding Method Indwelling Catheter Indwelling Catheter # Bowel Movements 1 - Labs CBC & Chem 7: 08/25/23 05:22 08/25/23 05:22 Labs: Abnormal Lab Results - Last 24 Hours (Table) 08/24/23 08/24/23 08/24/23 Range/Units 06:38 06:38 11:26 WBC 10.45 H (4.50-10.00) X 10*3/uL RBC 1.99 L (4.10-5.20) X 10*6/uL Hgb 6.1 A* (12.0-15.0) g/dL Hct 20.1 L (37.2-46.3) % MCV 101.0 H (80.0-97.0) FL MCHC 30.3 L (32.0-37.0) g/dL RDW 18.0 H (11.5-14.5) % Sodium 134 L (135-145) mmol/L BUN 32.5 H (9.0-27.0) mg/dL Creatinine 2.8 H (0.6-1.5) mg/dL Est GFR (CKD-EPI) 17 L (>=60) BUN/Creatinine Ratio 11.61 L (12.00-20.00) Ratio Glucose 113 H (70-110) mg/dL POC Glucose (mg/dL) 138 H (70-110) mg/dL Calcium 8.0 L (8.7-10.3) mg/dL Total Protein 4.8 L (6.2-8.2) g/dL Albumin 2.2 L (3.8-4.9) g/dL Albumin/Globulin Ratio 0.85 L (1.60-3.17) Ratio Crossmatch 08/24/23 08/24/23 08/24/23 Range/Units 13:07 15:36 16:32 WBC (4.50-10.00) X 10*3/uL RBC 2.10 L (4.10-5.20) X 10*6/uL Hgb 6.5 L* (12.0-15.0) g/dL Hct 21.2 L (37.2-46.3) % MCV 101.1 H (80.0-97.0) FL MCHC 30.8 L (32.0-37.0) g/dL RDW 18.2 H (11.5-14.5) % Sodium (135-145) mmol/L BUN (9.0-27.0) mg/dL Creatinine (0.6-1.5) mg/dL Est GFR (CKD-EPI) (>=60) BUN/Creatinine Ratio (12.00-20.00) Ratio Glucose (70-110) mg/dL POC Glucose (mg/dL) 139 H (70-110) mg/dL Calcium (8.7-10.3) mg/dL Total Protein (6.2-8.2) g/dL Albumin (3.8-4.9) g/dL Albumin/Globulin Ratio (1.60-3.17) Ratio Crossmatch See Detail 08/24/23 08/25/23 Range/Units 19:58 06:11 WBC (4.50-10.00) X 10*3/uL RBC (4.10-5.20) X 10*6/uL Hgb (12.0-15.0) g/dL Hct (37.2-46.3) % MCV (80.0-97.0) FL MCHC (32.0-37.0) g/dL RDW (11.5-14.5) % Sodium (135-145) mmol/L BUN (9.0-27.0) mg/dL Creatinine (0.6-1.5) mg/dL Est GFR (CKD-EPI) (>=60) BUN/Creatinine Ratio (12.00-20.00) Ratio Glucose (70-110) mg/dL POC Glucose (mg/dL) 169 H 115 H (70-110) mg/dL Calcium (8.7-10.3) mg/dL Total Protein (6.2-8.2) g/dL Albumin (3.8-4.9) g/dL Albumin/Globulin Ratio (1.60-3.17) Ratio Crossmatch
[2023-08-25 16:36] LABS: Glucose,Whole Blood 145 mg/dL (70-110)
[2023-08-25 19:48] LABS: Glucose,Whole Blood 168 mg/dL (70-110)
[2023-08-25] MEDS: clonazePAM 0.5 MG TAB PO SCH (19:55)
[2023-08-25] MEDS: ATORVASTATIN 40 MG TAB PO SCH (19:55)
[2023-08-26] MEDS: HYDROcodone/APAP 5-325MG 1 EACH TAB PO PRN ×2 (00:21→14:21)
[2023-08-26 06:06] LABS: Glucose,Whole Blood 131 mg/dL (70-110)
[2023-08-26] MEDS: INSULIN ASPART (NovoLOG) 100 UNIT/ML VIAL SQ SCH ×4 (06:09→21:21)
--- NOTE | 2023-08-26 10:54 | P.PN ---
Subjective Progress Note Date: 08/26/23 Patient is an 78-year-old female with diabetes mellitus type 2, paroxysmal atrial fibrillation, Parkinson's, seizure disorder, sick sinus syndrome status post pacemaker, and chronic kidney disease stage III as well as other comorbid conditions who presented to the ER at the direction of Dr. Jones. Patient has a remote history of a left total knee replacement done an outside hospital. She ultimately developed a periprosthetic joint infection which required several attempts at infection control with placement of a static antibiotic spacer. After her last surgery she was informed by family that she would likely need an above knee amputation for infection recurred. Recently the patient developed a draining sinus over the anterior aspect of the knee will stay on her shelter when she therefore was referred to Dr. Jones. He recommended admitting the patient for possible AKA prior to her becoming systemically ill from the underlying infection. On arrival to the ER she was hypertensive with a blood pressure of 198/86. Laboratory analysis was remarkable for white blood cell count 10.7, BUN 44, creatinine 2.64. She is admitted for acute on chronic knee infection. She was started on vancomycin and Zosyn. She was seen by vascular surgery. She underwent AKA on 08/09/23. She was seen by ID and her antibiotic were optimized to cefepime and daptomycin. Currently, she has completed 7 days of Cefepime and Daptomycin. She continues to have worsening renal function, Nephrology was consulted. She was given intermittent Lasix for fluid overload. Renal function worsened. Started on HD on 08/22. She was given 2 unit of PRBC for acute blood loss anemia on 08/10 and 08/24. 08/25 Patient was seen and examined. No complaints. Underwent 3 HD treatments so far. Scheduled for HD on 08/26. 1.1 L from HD on 08/24. Currently on Lasix 60 mg IV BID. CBC WBC 10.56 Hg 8.1 Hct 26.2. BMP Na 13, Cr 2.1, Ca 8.1, alb 2.3. 08/26 Patient was seen and examined. Sleeping comfortably. Undergoing HD today. Vital signs reviewed General: nontoxic, no distress, appears at stated age Cardiovascular: S1S2 reg, no murmur Lungs: Decreased bs bilateral, no rhonchi, no rales , no accessory muscle use Abdominal: soft, nontender to palpation, no guarding, no appreciable organomegaly Ext: no gross muscle atrophy, LLE with stem family educator in place no contractures Neuro: no focal neuro deficits Psych: Alert, oriented, appropriate affect Based on my assessment of this patient, this patient meets a moderate complexity level of care. 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 Completed 7 days of Cefepime and Daptomycin. Acute blood loss anemia, on chronic anemia: Anticipated outcome of surgery. Repeat CBC tomorrow morning. Transfuse if Hg < 7. Acute kidney injury on chronic kidney disease stage IV: Nephrology on board. HD catheter placed 08/22. HD tomorrow. Repeat BMP tomorrow morning. Paroxysmal atrial fibrillation, history of sick sinus syndrome status post permanent pacemaker: Coreg 6.25 mg by mouth twice daily. Eliquis 2.5 mg PO BID for AC. Parkinson's disease Hypertension: Coreg as above. Dyslipidemia: Lipitor 40 mg PO QHS. Dementia Diabetes mellitus type 2: ISS. Accuchecks ACHS. Hypoglycemic precautions. Urinary retention: Akhtar placed 08/11. CODE STATUS: DVT Prophylaxis: Eliquis GI Prophylaxis: Protonix Designated medical POA if patient is not able to make medical decisions for themselves: I have reviewed the following mental health consultant notes: I have reviewed the results of the following tests: I have ordered the following tests: Pending: CBC, BMP. I have discussed the care of this patient with the following independent historian: I have independently interpreted the following test below: I have discussed the management of this patient with the following physician: Monitor daily electrolytes as patient is on Lasix. Objective - Vital Signs Vital signs: Vital Signs Temp 98.2 F 08/26/23 07:08 Pulse 74 08/26/23 07:08 Resp 20 08/26/23 07:08 BP 131/82 08/26/23 07:08 Pulse Ox 99 08/26/23 07:08 FiO2 Intake & Output 08/25/23 08/26/23 08/26/23 18:59 06:59 18:59 Output Total 125 100 Balance -125 -100 Output: Urine 125 100 Other: Voiding Method Indwelling Catheter Indwelling Catheter # Bowel Movements 1 1 - Labs CBC & Chem 7: 08/25/23 05:22 08/25/23 05:22 Labs: Abnormal Lab Results - Last 24 Hours (Table) 08/25/23 08/25/23 08/25/23 Range/Units 11:58 16:35 19:46 POC Glucose (mg/dL) 152 H 145 H 168 H (70-110) mg/dL 08/26/23 Range/Units 06:05 POC Glucose (mg/dL) 131 H (70-110) mg/dL
[2023-08-26 11:08] LABS: Glucose,Whole Blood 108 mg/dL (70-110)
--- NOTE | 2023-08-26 11:27 | P.PN ---
Subjective Patient is seen for follow-up for chronic kidney disease with acute kidney injury. Renal function had deteriorated with persistent volume overload and therefore patient was started on hemodialysis on 08/22/2023 Hemodialysis today. No significant complaints. Goal UF about 2 L. Objective - Vital Signs Vital signs: Vital Signs Temp 98.2 F 08/26/23 07:08 Pulse 74 08/26/23 07:08 Resp 20 08/26/23 07:08 BP 131/82 08/26/23 07:08 Pulse Ox 99 08/26/23 07:08 FiO2 Intake & Output 08/25/23 08/26/23 08/26/23 18:59 06:59 18:59 Output Total 125 100 Balance -125 -100 Output: Urine 125 100 Other: Voiding Method Indwelling Catheter Indwelling Catheter # Bowel Movements 1 1 - Exam Patient is awake, comfortable, no acute distress. Answers questions appropriately. Examination of the heart S1 and S2 Examination of the lungs bilateral breath sounds are heard Abdomen is soft obese, mild tenderness mid abdomen Examination of lower extremities shows 3+ edema bilaterally ENGINEERING WRITER exam grossly intact - Labs CBC & Chem 7: 08/25/23 05:22 08/25/23 05:22 Labs: Abnormal Lab Results - Last 24 Hours (Table) 08/25/23 08/25/23 08/25/23 Range/Units 11:58 16:35 19:46 POC Glucose (mg/dL) 152 H 145 H 168 H (70-110) mg/dL 08/26/23 Range/Units 06:05 POC Glucose (mg/dL) 131 H (70-110) mg/dL Assessment and Plan Assessment: 1. Acute kidney injury secondary to vasomotor nephropathy from diuresis. Started on hemodialysis on 08/22/2023 due to persistent volume overload and worsening renal function. Kidneys noted to be atrophic with no evidence of hydronephrosis. 2. Left knee infected wound status post [id number] amputation 08/09/2023. 3. Chronic kidney disease stage IV with baseline creatinine 2.3-2.7 secondary to diabetic kidney disease and cardiorenal syndrome. 4. Chronic diastolic CHF. 5. Anemia of chronic kidney disease. Iron deficiency noted. Receiving IV iron. Also on Aranesp. 6. Chronic kidney disease mineral bone disease maintained on calcitriol. 7. Hypertension with chronic kidney disease. Stable. 8. Diabetes mellitus. 9. Urinary retention. Akhtar catheter placed 08/11/2023. On Flomax. 10. Metabolic acidosis secondary to acute kidney injury. On oral bicarb. Plan: Patient will be maintained on Sunday schedule. can use midodrine if blood pressure remains low. Increase goal UF to about 2 L as tolerated
[2023-08-26] MEDS: PANTOPRAZOLE 40 MG TABLET PO SCH (12:40)
[2023-08-26] MEDS: GABAPENTIN 300 MG CAP PO SCH (12:41)
[2023-08-26] MEDS: allopurinoL 300 MG TAB PO SCH (12:41)
[2023-08-26] MEDS: APIXABAN 2.5 MG TABLET PO SCH ×2 (12:41→20:02)
[2023-08-26] MEDS: MAGNESIUM OXIDE 400 MG TAB PO SCH (12:41)
[2023-08-26] MEDS: SERTRALINE 25 MG TAB PO SCH (12:41)
[2023-08-26] MEDS: carvediloL 6.25 MG TAB PO SCH ×2 (12:41→17:11)
[2023-08-26] MEDS: TAMSULOSIN 0.4 MG CAP.ER.24H PO SCH (12:41)
[2023-08-26] MEDS: FUROSEMIDE 10 MG/ML 10 ML VIAL IV SCH ×2 (12:42→20:02)
[2023-08-26 16:04] LABS: Glucose,Whole Blood 210 mg/dL (70-110)
[2023-08-26 16:08] LABS: Anisocytosis Moderate; HCT 27.2 % (34.0-46.0); Hypochromasia Marked; MCH 29.9 pg (25.0-35.0); MCHC 31.1 g/dL (31.0-37.0); MCV 96.1 fL (80.0-100.0); Macrocytosis Slight; Platelet Count 214 k/uL (150-450); Poikilocytosis Slight; RBC 2.83 m/uL (3.80-5.40); WBC 9.8 k/uL (3.8-10.6)
[2023-08-26 16:10] LABS: HGB 8.5 gm/dL (11.4-16.0)
[2023-08-26 16:30] LABS: African American GFR (CKD) 34 (>60 ml/min/1.73 sqM); Anion Gap 7 mmol/L; Blood Urea Nitrogen 15 mg/dL (7-17); Calcium 7.5 mg/dL (8.4-10.2); Carbon Dioxide 27 mmol/L (22-30); Chloride 98 mmol/L (98-107); Glucose 146 mg/dL (74-99); Non-African American GFR(CKD) 29 (>60 ml/min/1.73 sqM); Potassium 3.7 mmol/L (3.5-5.1); Sodium 132 mmol/L (137-145)
[2023-08-26] MEDS: clonazePAM 0.5 MG TAB PO SCH (20:02)
[2023-08-26] MEDS: ATORVASTATIN 40 MG TAB PO SCH (20:02)
[2023-08-26 20:35] LABS: Glucose,Whole Blood 188 mg/dL (70-110)
[2023-08-27] MEDS: HYDROcodone/APAP 5-325MG 1 EACH TAB PO PRN (00:53)
[2023-08-27 04:48] LABS: Anisocytosis Moderate; HCT 27.3 % (34.0-46.0); HGB 8.3 gm/dL (11.4-16.0); Hypochromasia Marked; MCH 29.4 pg (25.0-35.0); MCHC 30.4 g/dL (31.0-37.0); MCV 96.7 fL (80.0-100.0); Macrocytosis Slight; Mean Platelet Volume 8.4; Platelet Count 213 k/uL (150-450); Poikilocytosis Slight; RBC 2.82 m/uL (3.80-5.40); RDW 20.1 % (11.5-15.5); WBC 10.4 k/uL (3.8-10.6)
[2023-08-27 05:06] LABS: African American GFR (CKD) 24 (>60 ml/min/1.73 sqM); Anion Gap 6 mmol/L; Blood Urea Nitrogen 19 mg/dL (7-17); Calcium 7.6 mg/dL (8.4-10.2); Carbon Dioxide 28 mmol/L (22-30); Chloride 98 mmol/L (98-107); Glucose 142 mg/dL (74-99); Non-African American GFR(CKD) 21 (>60 ml/min/1.73 sqM); Potassium 3.7 mmol/L (3.5-5.1); Sodium 132 mmol/L (137-145)
[2023-08-27 05:32] LABS: Glucose,Whole Blood 150 mg/dL (70-110)
[2023-08-27] MEDS: INSULIN ASPART (NovoLOG) 100 UNIT/ML VIAL SQ SCH ×4 (05:54→20:38)
[2023-08-27] MEDS: MAGNESIUM OXIDE 400 MG TAB PO SCH (08:39)
[2023-08-27] MEDS: allopurinoL 300 MG TAB PO SCH (08:39)
[2023-08-27] MEDS: PANTOPRAZOLE 40 MG TABLET PO SCH (08:39)
[2023-08-27] MEDS: TAMSULOSIN 0.4 MG CAP.ER.24H PO SCH (08:39)
[2023-08-27] MEDS: FUROSEMIDE 10 MG/ML 10 ML VIAL IV SCH ×2 (08:39→20:38)
[2023-08-27] MEDS: SERTRALINE 25 MG TAB PO SCH (08:39)
[2023-08-27] MEDS: GABAPENTIN 300 MG CAP PO SCH (08:39)
[2023-08-27] MEDS: APIXABAN 2.5 MG TABLET PO SCH ×2 (08:39→20:38)
[2023-08-27] MEDS: carvediloL 6.25 MG TAB PO SCH ×2 (08:41→16:41)
[2023-08-27 11:25] LABS: Glucose,Whole Blood 135 mg/dL (70-110)
--- NOTE | 2023-08-27 11:41 | P.PN ---
Subjective Patient is seen for follow-up for chronic kidney disease with acute kidney injury. Renal function had deteriorated with persistent volume overload and therefore patient was started on hemodialysis on 08/22/2023 No significant complaints. Objective - Vital Signs Vital signs: Vital Signs Temp 98.6 F 08/27/23 07:46 Pulse 73 08/27/23 07:46 Resp 17 08/27/23 07:46 BP 128/66 08/27/23 07:46 Pulse Ox 97 08/27/23 07:46 FiO2 Intake & Output 08/26/23 08/27/23 08/27/23 18:59 06:59 18:59 Intake Total 400 Output Total 3300 Balance -2900 Intake: Hemodialysis 400 Output: Urine 300 Hemodialysis 3000 Other: Voiding Method Indwelling Catheter Indwelling Catheter Indwelling Catheter # Bowel Movements 1 - Exam Patient is awake, comfortable, no acute distress. Answers questions appropriately. Examination of the heart S1 and S2 Examination of the lungs bilateral breath sounds are heard Abdomen is soft obese, mild tenderness mid abdomen Examination of lower extremities shows 3+ edema bilaterally TELECOMMUNICATIONS OPERATOR exam grossly intact - Labs CBC & Chem 7: 08/27/23 04:00 08/27/23 04:00 Labs: Abnormal Lab Results - Last 24 Hours (Table) 08/26/23 08/26/23 08/26/23 Range/Units 15:52 15:52 16:01 RBC 2.83 L (3.80-5.40) m/uL Hgb 8.5 L D (11.4-16.0) gm/dL Hct 27.2 L (34.0-46.0) % MCHC (31.0-37.0) g/dL RDW 20.0 H (11.5-15.5) % Sodium 132 L (137-145) mmol/L BUN (7-17) mg/dL Creatinine 1.64 H (0.52-1.04) mg/dL Glucose 146 H (74-99) mg/dL POC Glucose (mg/dL) 210 H (70-110) mg/dL Calcium 7.5 L (8.4-10.2) mg/dL 08/26/23 08/27/23 08/27/23 Range/Units 20:33 04:00 04:00 RBC 2.82 L (3.80-5.40) m/uL Hgb 8.3 L (11.4-16.0) gm/dL Hct 27.3 L (34.0-46.0) % MCHC 30.4 L (31.0-37.0) g/dL RDW 20.1 H (11.5-15.5) % Sodium 132 L (137-145) mmol/L BUN 19 H (7-17) mg/dL Creatinine 2.17 H (0.52-1.04) mg/dL Glucose 142 H (74-99) mg/dL POC Glucose (mg/dL) 188 H (70-110) mg/dL Calcium 7.6 L (8.4-10.2) mg/dL 08/27/23 08/27/23 Range/Units 05:30 11:24 RBC (3.80-5.40) m/uL Hgb (11.4-16.0) gm/dL Hct (34.0-46.0) % MCHC (31.0-37.0) g/dL RDW (11.5-15.5) % Sodium (137-145) mmol/L BUN (7-17) mg/dL Creatinine (0.52-1.04) mg/dL Glucose (74-99) mg/dL POC Glucose (mg/dL) 150 H 135 H (70-110) mg/dL Calcium (8.4-10.2) mg/dL Assessment and Plan Assessment: 1. Acute kidney injury secondary to vasomotor nephropathy from diuresis. Started on hemodialysis on 08/22/2023 due to persistent volume overload and worsening renal function. Kidneys noted to be atrophic with no evidence of hydronephrosis. 2. Left knee infected wound status post [id number] amputation 08/09/2023. 3. Chronic kidney disease stage IV with baseline creatinine 2.3-2.7 secondary to diabetic kidney disease and cardiorenal syndrome. 4. Chronic diastolic CHF. 5. Anemia of chronic kidney disease. Iron deficiency noted. Receiving IV iron. Also on Aranesp. 6. Chronic kidney disease mineral bone disease maintained on calcitriol. 7. Hypertension with chronic kidney disease. Stable. 8. Diabetes mellitus. 9. Urinary retention. Akhtar catheter placed 08/11/2023. On Flomax. 10. Metabolic acidosis secondary to acute kidney injury. On oral bicarb. Plan: Hemodialysis on 08/29/2023 Continue to encourage increase oral intake May continue with IV Lasix until discharge
--- NOTE | 2023-08-27 11:54 | P.PN ---
Subjective Progress Note Date: 08/27/23 Patient is an 78-year-old female with diabetes mellitus type 2, paroxysmal atrial fibrillation, Parkinson's, seizure disorder, sick sinus syndrome status post pacemaker, and chronic kidney disease stage III as well as other comorbid conditions who presented to the ER at the direction of Dr. Jones. Patient has a remote history of a left total knee replacement done an outside hospital. She ultimately developed a periprosthetic joint infection which required several attempts at infection control with placement of a static antibiotic spacer. After her last surgery she was informed by family that she would likely need an above knee amputation for infection recurred. Recently the patient developed a draining sinus over the anterior aspect of the knee will stay on her prison when she therefore was referred to Dr. Jones. He recommended admitting the patient for possible AKA prior to her becoming systemically ill from the underlying infection. On arrival to the ER she was hypertensive with a blood pressure of 198/86. Laboratory analysis was remarkable for white blood cell count 10.7, BUN 44, creatinine 2.64. She is admitted for acute on chronic knee infection. She was started on vancomycin and Zosyn. She was seen by vascular surgery. She underwent AKA on 08/09/23. She was seen by ID and her antibiotic were optimized to cefepime and daptomycin. Currently, she has completed 7 days of Cefepime and Daptomycin. She continues to have worsening renal function, Nephrology was consulted. She was given intermittent Lasix for fluid overload. Renal function worsened. Started on HD on 08/22. She was given 2 unit of PRBC for acute blood loss anemia on 08/10 and 08/24. 08/25 Patient was seen and examined. No complaints. Underwent 3 HD treatments so far. Scheduled for HD on 08/26. 1.1 L from HD on 08/24. Currently on Lasix 60 mg IV BID. CBC WBC 10.56 Hg 8.1 Hct 26.2. BMP Na 13, Cr 2.1, Ca 8.1, alb 2.3. 08/26 Patient was seen and examined. Sleeping comfortably. Undergoing HD today. 08/27 Patient was seen and examined. Nephrology recommends HD on 08/29, continue Lasix IV. CBC Hg 8.3. BMP Na 132, BUN 19, Cr 2.17, glu 142, Ca 7.6. Vital signs reviewed General: nontoxic, no distress, appears at stated age Cardiovascular: S1S2 reg, no murmur Lungs: Decreased bs bilateral, no rhonchi, no rales , no accessory muscle use Abdominal: soft, nontender to palpation, no guarding, no appreciable organomegaly Ext: no gross muscle atrophy, LLE with stem surgical asst in place no contractures Neuro: no focal neuro deficits Psych: Alert, oriented, appropriate affect Based on my assessment of this patient, this patient meets a moderate complexity level of care. 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 Completed 7 days of Cefepime and Daptomycin. Acute blood loss anemia, on chronic anemia: Anticipated outcome of surgery. Stable. Transfuse if Hg < 7. Acute kidney injury on chronic kidney disease stage IV: Nephrology on board. HD catheter placed 08/22. HD tomorrow. Repeat BMP tomorrow morning. Paroxysmal atrial fibrillation, history of sick sinus syndrome status post permanent pacemaker: Coreg 6.25 mg by mouth twice daily. Eliquis 2.5 mg PO BID for AC. Parkinson's disease Hypertension: Coreg as above. Dyslipidemia: Lipitor 40 mg PO QHS. Dementia Diabetes mellitus type 2: ISS. Accuchecks ACHS. Hypoglycemic precautions. Urinary retention: Akhtar placed 08/11. Discharge planning underway. Medically stable. Hopeful discharge tomorrow. Case management on board. CODE STATUS: DVT Prophylaxis: Eliquis GI Prophylaxis: Protonix Designated medical POA if patient is not able to make medical decisions for themselves: I have reviewed the following linux consultant notes: Nephrology note. I have reviewed the results of the following tests: CBC, BMP. I have ordered the following tests: I have discussed the care of this patient with the following independent historian: I have independently interpreted the following test below: I have discussed the management of this patient with the following physician: Monitor daily electrolytes as patient is on Lasix. Objective - Vital Signs Vital signs: Vital Signs Temp 98.6 F 08/27/23 07:46 Pulse 73 08/27/23 07:46 Resp 17 08/27/23 07:46 BP 128/66 08/27/23 07:46 Pulse Ox 97 08/27/23 07:46 FiO2 Intake & Output 08/26/23 08/27/23 08/27/23 18:59 06:59 18:59 Intake Total 400 Output Total 3300 Balance -2900 Intake: Hemodialysis 400 Output: Urine 300 Hemodialysis 3000 Other: Voiding Method Indwelling Catheter Indwelling Catheter Indwelling Catheter # Bowel Movements 1 - Labs CBC & Chem 7: 08/27/23 04:00 08/27/23 04:00 Labs: Abnormal Lab Results - Last 24 Hours (Table) 08/26/23 08/26/23 08/26/23 Range/Units 15:52 15:52 16:01 RBC 2.83 L (3.80-5.40) m/uL Hgb 8.5 L D (11.4-16.0) gm/dL Hct 27.2 L (34.0-46.0) % MCHC (31.0-37.0) g/dL RDW 20.0 H (11.5-15.5) % Sodium 132 L (137-145) mmol/L BUN (7-17) mg/dL Creatinine 1.64 H (0.52-1.04) mg/dL Glucose 146 H (74-99) mg/dL POC Glucose (mg/dL) 210 H (70-110) mg/dL Calcium 7.5 L (8.4-10.2) mg/dL 08/26/23 08/27/23 08/27/23 Range/Units 20:33 04:00 04:00 RBC 2.82 L (3.80-5.40) m/uL Hgb 8.3 L (11.4-16.0) gm/dL Hct 27.3 L (34.0-46.0) % MCHC 30.4 L (31.0-37.0) g/dL RDW 20.1 H (11.5-15.5) % Sodium 132 L (137-145) mmol/L BUN 19 H (7-17) mg/dL Creatinine 2.17 H (0.52-1.04) mg/dL Glucose 142 H (74-99) mg/dL POC Glucose (mg/dL) 188 H (70-110) mg/dL Calcium 7.6 L (8.4-10.2) mg/dL 08/27/23 08/27/23 Range/Units 05:30 11:24 RBC (3.80-5.40) m/uL Hgb (11.4-16.0) gm/dL Hct (34.0-46.0) % MCHC (31.0-37.0) g/dL RDW (11.5-15.5) % Sodium (137-145) mmol/L BUN (7-17) mg/dL Creatinine (0.52-1.04) mg/dL Glucose (74-99) mg/dL POC Glucose (mg/dL) 150 H 135 H (70-110) mg/dL Calcium (8.4-10.2) mg/dL
[2023-08-27 16:22] LABS: Glucose,Whole Blood 119 mg/dL (70-110)
[2023-08-27 20:20] LABS: Glucose,Whole Blood 156 mg/dL (70-110)
[2023-08-27] MEDS: clonazePAM 0.5 MG TAB PO SCH (20:38)
[2023-08-27] MEDS: ATORVASTATIN 40 MG TAB PO SCH (20:38)
[2023-08-28] MEDS: HYDROcodone/APAP 5-325MG 1 EACH TAB PO PRN (03:25)
[2023-08-28 05:35] LABS: Glucose,Whole Blood 121 mg/dL (70-110)
[2023-08-28] MEDS: INSULIN ASPART (NovoLOG) 100 UNIT/ML VIAL SQ SCH ×2 (05:57→11:27)
[2023-08-28] MEDS: MAGNESIUM OXIDE 400 MG TAB PO SCH (07:55)
[2023-08-28] MEDS: SERTRALINE 25 MG TAB PO SCH (07:56)
[2023-08-28] MEDS: GABAPENTIN 300 MG CAP PO SCH (07:56)
[2023-08-28] MEDS: FUROSEMIDE 10 MG/ML 10 ML VIAL IV SCH ×2 (07:56→09:01)
[2023-08-28] MEDS: allopurinoL 300 MG TAB PO SCH (07:56)
[2023-08-28] MEDS: APIXABAN 2.5 MG TABLET PO SCH (07:56)
[2023-08-28] MEDS: TAMSULOSIN 0.4 MG CAP.ER.24H PO SCH (07:56)
[2023-08-28] MEDS: carvediloL 6.25 MG TAB PO SCH (07:56)
[2023-08-28] MEDS: PANTOPRAZOLE 40 MG TABLET PO SCH (07:56)
[2023-08-28 09:07] VITALS: BP 194/75; PULSE 72; RESP 19; TEMP 98.4
[2023-08-28] MEDS ORDERED: TORSEMIDE 20 MG TAB PO SCH (10:00)
[2023-08-28 11:08] LABS: Glucose,Whole Blood 124 mg/dL (70-110)
[2023-08-28] MEDS: DARBEPOETIN ALFA 40 MCG/0.4 ML SYRINGE SQ SCH (11:26)
--- NOTE | 2023-08-28 11:26 | P.DS ---
Providers Date of admission: 08/06/23 20:24 Expected date of discharge: 08/28/23 Attending physician: Kylee Love MD Consults: 08/06/23 20:24 Consult Physician Urgent Consulting Provider: Elliot Berger Consult Reason/Comments: Knee infection Do you want consulting provider notified?: Yes 08/12/23 08:15 Consult Physician Routine Consulting Provider: Jay Jay Hahn Consult Reason/Comments: CKD Do you want consulting provider notified?: Yes 08/20/23 14:18 Consult Physician Urgent Consulting Provider: Chau Faust Consult Reason/Comments: insert permacath; dialysis start 08/21 Do you want consulting provider notified?: Yes Primary care physician: Acosta Melvin Hospital Course: Patient is an 78-year-old female with diabetes mellitus type 2, paroxysmal atrial fibrillation, Parkinson's, seizure disorder, sick sinus syndrome status post pacemaker, and chronic kidney disease stage III as well as other comorbid conditions who presented to the ER at the direction of Dr. Jones. Patient has a remote history of a left total knee replacement done an outside hospital. She ultimately developed a periprosthetic joint infection which required several attempts at infection control with placement of a static antibiotic spacer. After her last surgery she was informed by family that she would likely need an above knee amputation for infection recurred. Recently the patient developed a draining sinus over the anterior aspect of the knee will stay on her detention when she therefore was referred to Dr. Jones. He recommended admitting the patient for AKA prior to her becoming systemically ill from the underlying infection. On arrival to the ER she was hypertensive with a blood pressure of 198/86. Laboratory analysis was remarkable for white blood cell count 10.7, BUN 44, creatinine 2.64. She is admitted for acute on chronic knee infection. She was started on vancomycin and Zosyn. She was seen by vascular surgery. She underwent AKA on 08/09/23. She was seen by ID and her antibiotic were optimized to cefepime and daptomycin. Completed 7 days of Cefepime and Daptomycin. She continues to have worsening renal function, Nephrology was consulted. She was given intermittent Lasix for fluid overload. Renal function worsened. Started on HD on 08/22. She was given 2 unit of PRBC for acute blood loss anemia on 08/10 and 08/24. Acute on chronic due to CKD as well. Hg remained stable after transfusion. 08/28 Patient was seen and examined. Tired. Nephrology recommends HD on 08/29, continue Lasix IV until discharge. Plans for discharge to [facility] today with plans for HD on 08/29. 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 Completed 7 days of Cefepime and Daptomycin. Acute blood loss anemia, on chronic anemia: Anticipated outcome of surgery. AOCD from CKD. Stable. Transfuse if Hg < 7. Acute kidney injury on chronic kidney disease stage IV: Nephrology on board. HD catheter placed 08/22. Next HD session on 08/29. Paroxysmal atrial fibrillation, history of sick sinus syndrome status post permanent pacemaker: Coreg 6.25 mg by mouth twice daily. Eliquis 2.5 mg PO BID for AC. Parkinson's disease Hypertension: Coreg as above. Dyslipidemia: Lipitor 40 mg PO QHS. Dementia Diabetes mellitus type 2: ISS. Accuchecks ACHS. Hypoglycemic precautions. Urinary retention: Akhtar placed 08/11. This complex discharge took 35 minutes to complete. Patient Condition at Discharge: Stable Plan - Discharge Summary Discharge Rx Participant: Yes New Discharge Prescriptions: New Torsemide [Demadex] 40 mg PO DAILY tab Tamsulosin [Flomax] 0.4 mg PO PC-BRKFST cap Midodrine [ProAmatine] 5 mg PO BID PRN tab PRN Reason: SBP <110 carvediloL [Coreg] 6.25 mg PO BID-W/MEALS tab Continue Ferrous Sulfate [Iron (65 MG Elemental)] 325 mg PO BID Lactulose [Cephulac] 20 gm PO DAILY PRN ml PRN Reason: Constipation Calcium Acetate [PhosLo] 667 mg PO DAILY Acetaminophen Tab [Tylenol] 500 mg PO Q6HR PRN tab PRN Reason: Fever > 101 And/ Or Pain Ipratropium-Albuterol Nebulize [Duoneb 0.5 mg-3 mg/3 ml Soln] 3 ml INHALATION RT-BID PRN PRN Reason: Wheezing Ondansetron [Zofran] 4 mg PO Q6H PRN PRN Reason: Nausea And Vomiting Apixaban [Eliquis] 2.5 mg PO BID tab Darbepoetin Peng [Aranesp] 60 mcg SQ MOFR Ergocalciferol (Vitamin D2) [Drisdol (50,000 Iu)] 1,250 mcg PO FR Potassium Chloride ER [K-Dur 10] 10 meq PO DAILY Sertraline [Zoloft] 25 mg PO DAILY Omeprazole 20 mg PO DAILY Atorvastatin [Lipitor] 40 mg PO HS@2100 Sodium Chloride [Saline Mist] 1 spray EA NOSTRIL Q2H PRN PRN Reason: Congestion bisacodyL [Dulcolax] 10 mg RECTAL DAILY PRN PRN Reason: Constipation calcitrioL [Calcitriol] 0.25 mcg PO MOTUWETHSA allopurinoL [Zyloprim] 300 mg PO DAILY Magnesium Oxide [Mag-Ox] 400 mg PO DAILY clonazePAM [KlonoPIN] 0.5 mg PO HS #3 tab Changed Gabapentin [Neurontin] 300 mg PO DAILY #3 cap HYDROcodone/APAP 5-325MG [[place] 5-325] 1 tab PO TID 3 Days #9 tab Discontinued Sodium Bicarbonate Tab 650 mg PO BID tab Furosemide [Lasix] 40 mg PO DAILY carvediloL [Coreg] 25 mg PO BID hydrALAZINE HCL [Apresoline] 25 mg PO BID Discharge Medication List Atorvastatin [Lipitor] 40 mg PO HS@2100 12/29/21 [History] Ferrous Sulfate [Iron (65 MG Elemental)] 325 mg PO BID 12/29/21 [History] Omeprazole 20 mg PO DAILY 12/29/21 [History] Lactulose [Cephulac] 20 gm PO DAILY PRN ml 01/05/22 [Rx] Calcium Acetate [PhosLo] 667 mg PO DAILY 01/19/23 [History] Sodium Chloride [Saline Mist] 1 spray EA NOSTRIL Q2H PRN 01/19/23 [History] allopurinoL [Zyloprim] 300 mg PO DAILY 01/19/23 [History] bisacodyL [Dulcolax] 10 mg RECTAL DAILY PRN 01/19/23 [History] calcitrioL [Calcitriol] 0.25 mcg PO MOTUWETHSA 01/19/23 [History] Acetaminophen Tab [Tylenol] 500 mg PO Q6HR PRN tab 01/23/23 [Rx] Ipratropium-Albuterol Nebulize [Duoneb 0.5 mg-3 mg/3 ml Soln] 3 ml INHALATION RT-BID PRN 05/04/23 [History] Magnesium Oxide [Mag-Ox] 400 mg PO DAILY 05/04/23 [History] Ondansetron [Zofran] 4 mg PO Q6H PRN 05/04/23 [History] Apixaban [Eliquis] 2.5 mg PO BID tab 05/14/23 [Rx] clonazePAM [KlonoPIN] 0.5 mg PO HS #3 tab 05/14/23 [Rx] Darbepoetin Peng [Aranesp] 60 mcg SQ MOFR 08/06/23 [History] Ergocalciferol (Vitamin D2) [Drisdol (50,000 Iu)] 1,250 mcg PO FR 08/06/23 [History] Potassium Chloride ER [K-Dur 10] 10 meq PO DAILY 08/06/23 [History] Sertraline [Zoloft] 25 mg PO DAILY 08/06/23 [History] Gabapentin [Neurontin] 300 mg PO DAILY #3 cap 08/13/23 [Rx] HYDROcodone/APAP 5-325MG [[place] 5-325] 1 tab PO TID 3 Days #9 tab 08/13/23 [Rx] Midodrine [ProAmatine] 5 mg PO BID PRN tab 08/28/23 [Rx] Tamsulosin [Flomax] 0.4 mg PO PC-BRKFST cap 08/28/23 [Rx] Torsemide [Demadex] 40 mg PO DAILY tab 08/28/23 [Rx] carvediloL [Coreg] 6.25 mg PO BID-W/MEALS tab 08/28/23 [Rx] Follow up Appointment(s)/Referral(s): [facility] - 08/29/23 11:15 am (Hemodialysis every Sunday, Sunday, and Sunday at 11:15 a.m. ) Acosta Melvin MD [Primary Care Provider] - 1-2 days Activity/Diet/Wound Care/Special Instructions: Diet: Renal Discharge Disposition: HOME SELF-CARE
--- NOTE | 2023-08-28 12:25 | P.PN ---
Subjective Patient is seen for follow-up for chronic kidney disease with acute kidney injury. Renal function had deteriorated with persistent volume overload and therefore patient was started on hemodialysis on 08/22/2023 No significant complaints. Scheduled for hemodialysis in a.m. Objective - Vital Signs Vital signs: Vital Signs Temp 98.4 F 08/28/23 07:12 Pulse 72 08/28/23 07:35 Resp 19 08/28/23 07:35 BP 194/75 08/28/23 07:12 Pulse Ox 95 08/28/23 07:12 FiO2 Intake & Output 08/27/23 08/28/23 08/28/23 18:59 06:59 18:59 Output Total 350 650 Balance -350 -650 Output: Urine 350 650 Other: Voiding Method Indwelling Catheter Indwelling Catheter Indwelling Catheter # Bowel Movements 1 - Exam Patient is awake, comfortable, no acute distress. Answers questions appropriately. Examination of the heart S1 and S2 Examination of the lungs bilateral breath sounds are heard Abdomen is soft obese, mild tenderness mid abdomen Examination of lower extremities shows 3+ edema bilaterally DRY SANDER exam grossly intact - Labs CBC & Chem 7: 08/27/23 04:00 08/27/23 04:00 Labs: Abnormal Lab Results - Last 24 Hours (Table) 08/27/23 08/27/23 08/28/23 Range/Units 16:22 20:19 05:33 POC Glucose (mg/dL) 119 H 156 H 121 H (70-110) mg/dL 08/28/23 Range/Units 11:05 POC Glucose (mg/dL) 124 H (70-110) mg/dL Assessment and Plan Assessment: 1. Acute kidney injury secondary to vasomotor nephropathy from diuresis. Started on hemodialysis on 08/22/2023 due to persistent volume overload and worsening renal function. Kidneys noted to be atrophic with no evidence of hydronephrosis. 2. Left knee infected wound status post [id number] amputation 08/09/2023. 3. Chronic kidney disease stage IV with baseline creatinine 2.3-2.7 secondary to diabetic kidney disease and cardiorenal syndrome. 4. Chronic diastolic CHF. 5. Anemia of chronic kidney disease. Iron deficiency noted. Receiving IV iron. Also on Aranesp. 6. Chronic kidney disease mineral bone disease maintained on calcitriol. 7. Hypertension with chronic kidney disease. Stable. 8. Diabetes mellitus. 9. Urinary retention. Akhtar catheter placed 08/11/2023. On Flomax. 10. Metabolic acidosis secondary to acute kidney injury. On oral bicarb. Plan: Hemodialysis on 08/29/2023 Continue to encourage increase oral intake Change IV Lasix to oral Demadex
== END 2023-08-28 12:39 | DRG 474 ==
LOC: EC 18:31 → 4SSUR 20:24 → EEVIPCON 20:24 → 4SSUR 20:39
PROVIDERS: ADMIT Internal Medicine; ATTEND Internal Medicine
PROC: 0Y6D0Z1 Detachment at Left Upper Leg, High, Open Approach (ICD-10-PCS; principal; 2023-08-09 13:30)
PROC: 30233N1 Transfusion of Nonautologous Red Blood Cells into Peripheral Vein, Percutaneous Approach (ICD-10-PCS; 2023-08-10)
PROC: 5A1D70Z Performance of Urinary Filtration, Intermittent, Less than 6 Hours Per Day (ICD-10-PCS; 2023-08-22)
PROC: 0JH63XZ Insertion of Tunneled Vascular Access Device into Chest Subcutaneous Tissue and Fascia, Percutaneous Approach (ICD-10-PCS; 2023-08-22 08:15)
PROC: 02HV33Z Insertion of Infusion Device into Superior Vena Cava, Percutaneous Approach (ICD-10-PCS; 2023-08-22 08:15)
DX: T84.54XA Infection and inflammatory reaction due to internal left knee prosthesis, initial encounter (principal); N17.0 Acute kidney failure with tubular necrosis; I13.0 Hypertensive heart and chronic kidney disease with heart failure and stage 1 through stage 4 chronic kidney disease, or unspecified chronic kidney disease; E87.20 Acidosis, unspecified; I50.32 Chronic diastolic (congestive) heart failure; D62 Acute posthemorrhagic anemia; N18.4 Chronic kidney disease, stage 4 (severe); F02.83 Dementia in other diseases classified elsewhere, unspecified severity, with mood disturbance; L97.929 Non-pressure chronic ulcer of unspecified part of left lower leg with unspecified severity; I49.5 Sick sinus syndrome; E11.22 Type 2 diabetes mellitus with diabetic chronic kidney disease; E11.51 Type 2 diabetes mellitus with diabetic peripheral angiopathy without gangrene; G30.9 Alzheimer's disease, unspecified; G40.909 Epilepsy, unspecified, not intractable, without status epilepticus; Z79.4 Long term (current) use of insulin; D63.1 Anemia in chronic kidney disease; G20.A1 Parkinson's disease without dyskinesia, without mention of fluctuations; N14.0 Analgesic nephropathy; T50.2X5A Adverse effect of carbonic-anhydrase inhibitors, benzothiadiazides and other diuretics, initial encounter; G89.29 Other chronic pain; K29.50 Unspecified chronic gastritis without bleeding; M85.862 Other specified disorders of bone density and structure, left lower leg; B96.5 Pseudomonas (aeruginosa) (mallei) (pseudomallei) as the cause of diseases classified elsewhere; B95.62 Methicillin resistant Staphylococcus aureus infection as the cause of diseases classified elsewhere; M10.9 Gout, unspecified; E78.5 Hyperlipidemia, unspecified; E61.1 Iron deficiency; M89.8X9 Other specified disorders of bone, unspecified site; M62.81 Muscle weakness (generalized); R33.9 Retention of urine, unspecified; R47.02 Dysphasia; R03.1 Nonspecific low blood-pressure reading; Y83.1 Surgical operation with implant of artificial internal device as the cause of abnormal reaction of the patient, or of later complication, without mention of misadventure at the time of the procedure; Z79.899 Other long term (current) drug therapy; Z95.810 Presence of automatic (implantable) cardiac defibrillator; Z79.01 Long term (current) use of anticoagulants; Z79.891 Long term (current) use of opiate analgesic; Z88.5 Allergy status to narcotic agent; Z88.6 Allergy status to analgesic agent
CPT/HCPCS: 36410; 36558; 71045; 73502; 76770; 76937; 77001; 80048; 80053; 81001; 82565; 82607; 82728; 82747; 83036; 83540; 83550; 83605; 83735; 85025; 85027; 86704; 86706; 86850; 86900; 86901; 86920; 87040; 87070; 87077; 87186; 87205; 87340; 90935; 93005; 93306; 93922; 96365; 96366; 96368; 96372; 99285

== ENCOUNTER 2023-09-25 11:03 | Inpatient (IN) | payer MEDICARE, OTHER ==
[2023-09-25] MEDS ORDERED: VANCOMYCIN IV PER PHARMACY 1 EACH MISC MISCELLANE PRN (12:13)
[2023-09-25] MEDS ORDERED: PIPERACILLIN-TAZOBACTAM 3.375 GM in SODIUM CHLORIDE 0.9% 100 ML IVPB STA (12:13)
[2023-09-25] MEDS ORDERED: VANCOMYCIN 1,250 MG in SODIUM CHLORIDE 0.9% 250 ML IVPB ONE (13:00)
--- NOTE | 2023-09-25 13:02 | ED ---
General Adult HPI - General Chief complaint: Recheck/Abnormal Lab/Rx Stated complaint: L leg wound Time Seen by Provider: 09/25/23 11:45 Source: patient, RN notes reviewed, old records reviewed Mode of arrival: wheelchair Limitations: no limitations - History of Present Illness Initial comments: This is an 78-year-old female who presents to the emergency room after having had a AKA by Dr. Spencer and now the wound is draining some fluid and cultures w ere done and they came up positive. Patient states the area is more sensitive and she is in a little bit of pain. She denies any fever or chills. Patient's [place]ic is poor and the history at this point in time is limited family is supposed be coming in later. I spoke with Dr. Spencer he wanted the patient admitted to medicine and he will be on consult. Patient was to start on antibiotics as well - Related Data Home Medications Medication Instructions Recorded Confirmed Atorvastatin [Lipitor] 40 mg PO HS@199912/29/21 09/25/23 Ferrous Sulfate [Iron (65 MG 325 mg PO BID@0800,1700 12/29/21 09/25/23 Elemental)] Omeprazole 20 mg PO DAILY@0800 12/29/21 09/25/23 Sodium Chloride [Saline Mist] 1 spray EA NOSTRIL Q2H PRN 01/19/23 09/25/23 allopurinoL [Zyloprim] 300 mg PO DAILY 01/19/23 09/25/23 bisacodyL [Dulcolax] 10 mg RECTAL DAILY PRN 01/19/23 09/25/23 Ipratropium-Albuterol Nebulize 3 ml INHALATION RT-BID PRN 05/04/23 09/25/23 [Duoneb 0.5 mg-3 mg/3 ml Soln] Magnesium Oxide [Mag-Ox] 400 mg PO HS@199905/04/23 09/25/23 Ondansetron [Zofran] 4 mg PO Q6H PRN 05/04/23 09/25/23 Ergocalciferol (Vitamin D2) 1,250 mcg PO FR@1200 08/06/23 09/25/23 [Drisdol (50,000 Iu)] Sertraline [Zoloft] 25 mg PO DAILY 08/06/23 09/25/23 Apixaban [Eliquis] 2.5 mg PO BID@0800,1700 09/25/23 09/25/23 Folic Acid/Vit B Complex and C 0.8 mg PO DAILY@1200 09/25/23 09/25/23 [Nephro-Dipti Tablet] Gabapentin [Neurontin] 300 mg PO BID@0800,1700 09/25/23 09/25/23 HYDROcodone/APAP 5-325MG [[place] 1 tab PO QID 09/25/23 09/25/23 5-325] L.acidoph,Paracasei, B.lactis 1 cap PO HS@2100 09/25/23 09/25/23 [Probiotic] Liquicell 30 ml PO BID@0800,1700 09/25/23 09/25/23 Sulfamethoxazole/Trimethoprim 1 tab PO DAILY@17009/25/23 09/25/23 [Bactrim DS 800-160 mg] Tamsulosin [Flomax] 0.4 mg PO DAILY@1700 09/25/23 09/25/23 Torsemide [Demadex] 40 mg PO BID@0800,17009/25/23 09/25/23 carvediloL [Coreg] 6.25 mg PO BID@0800,1700 09/25/23 09/25/23 clonazePAM [KlonoPIN] 0.5 mg PO HS@199909/25/23 09/25/23 Previous Rx's Medication Instructions Recorded Lactulose [Cephulac] 20 gm PO DAILY PRN ml 01/05/22 Acetaminophen Tab [Tylenol] 500 mg PO Q6HR PRN tab 01/23/23 Midodrine [ProAmatine] 5 mg PO BID PRN tab 08/28/23 Allergies Allergy/AdvReac Type Severity Reaction Status Date / Time codeine Allergy Unknown Verified 09/25/23 12:05 hydromorphone [From Dilaudid] Allergy Unknown Verified 09/25/23 12:05 acetaminophen AdvReac see comment Verified 09/25/23 12:05 Review of Systems ROS Statement: Those systems with pertinent positive or pertinent negative responses have been documented in the HPI. ROS Other: All systems not noted in ROS Statement are negative. Past Medical History Past Medical History: Atrial Fibrillation, Chest Pain / Angina, Dementia, Diabetes Mellitus, GERD/Reflux, Hyperlipidemia, Hypertension, Musculoskeletal Disorder, Neurologic Disorder, Pneumonia, Renal Disease, Seizure Disorder, Vascular Disorder Additional Past Medical History / Comment(s): IDDM type II, paroxysmal atrial f ibrilation, parkinsons, epilepsy, muscle weakness, anemia, hyperkalemia, sick sinus syndrome with pacemaker, PVD, CKD stage 3, gastritis, dysphagia, gout History of Any Multi-Drug Resistant Organisms: None Reported Date of last positivie culture/infection: 08/06/23 MRSA MDRO Source:: Left Knee MRSA and MDRO Past Surgical History: Pacemaker Past Anesthesia/Blood Transfusion Reactions: No Reported Reaction Type of Cardiac Device: Permanent Pacemaker Device Placement Date:: unknown Past Psychological History: Depression Smoking Status: Never smoker Past Alcohol Use History: None Reported Past Drug Use History: None Reported - Past Family History Father Family Medical History: Unable to Obtain Mother Family Medical History: Unable to Obtain General Exam - General Exam Comments Initial Comments: GENERAL: Patient is well-developed and well-nourished. Patient is nontoxic and well- hydrated and is in mild distress. ENT: Neck is soft and supple. No significant lymphadenopathy is noted. Oropharynx is clear. Moist moist membranes. Neck has full range of motion without eliciting any pain. EYES: The sclera were anicteric and conjunctiva were pink and moist. Extraocular movements were intact and pupils were equal round and reactive to light. Eyelids were unremarkable. PULMONARY: Unlabored respirations. Good breath sounds bilaterally. No audible rales rhonchi or wheezing was noted. CARDIOVASCULAR: There is a regular rate and rhythm without any murmurs gallops or rubs. Femoral pulses are equal bilaterally ABDOMEN: Soft and nontender with normal bowel sounds. No palpable organomegaly was noted. There is no palpable pulsatile mass. SKIN: Skin is clear with no lesions or rashes and otherwise unremarkable. NEUROLOGIC: Patient is alert and oriented x3. Cranial nerves II through XII are grossly intact. Motor and sensory are also intact. Normal speech, volume and content. Symmetrical smile. MUSCULOSKELETAL: Patient has an AKA on the left and the wound was opened in 3 spots and drain fluid 1 area seems to be draining pus. Wound is very malodorous LYMPHATICS: No significant lymphadenopathy is noted PSYCHIATRIC: Normal psychiatric evaluation. Limitations: no limitations Course Vital Signs 09/25/23 09/25/23 09/25/23 11:17 12:59 13:25 Temperature 98 F Pulse Rate 72 69 70 Respiratory 18 17 18 Rate Blood Pressure 113/50 120/54 123/88 O2 Sat by Pulse 96 96 97 Oximetry Medical Decision Making - Medical Decision Making EKG is interpreted by myself EKG shows a sinus rhythm at 69 bpm UT interval is 180 QRS is 86 QT was 416 QTc is 435. Patient's EKG shows no ST segment elevatio n or depression. Was pt. sent in by a medical professional or institution (, PA, STUDENT SERVICES ADVISOR, urgent ca re, hospital, or group home...) When possible be specific @ -Patient was sent in by Dr. Spencer's office Did you speak to anyone other than the patient for history (EMS, parent, family, police, friend...)? What history was obtained from this source @ -Patient's friend gave most of the history because the patient's [place]ic is not very good Did you review nursing and triage notes (agree or disagree)? Why? @ -I reviewed and agree with nursing and triage notes Were old charts reviewed (outside hosp., previous admission, EMS record, old EKG, old radiological studies, urgent care reports/EKG's, group home records)? Report findings @ -I reviewed prior charts and prior lab work and prior notes and the patient Differential Diagnosis (chest pain, altered mental status, abdominal pain women, abdominal pain men, vaginal bleeding, weakness, fever, dyspnea, syncope, headache, dizziness, GI bleed, back pain, seizure, CVA, palpatations, mental health, musculoskeletal)? @ -Surgical wound infection, cellulitis, necrotizing fasciitis, seroma, this is not an all-inclusive list EKG interpreted by me (3pts min.). @ -As above X-rays interpreted by me (1pt min.). @ -None done CT interpreted by me (1pt min.). @ -None done U/S interpreted by me (1pt. min.). @ -None done What testing was considered but not performed or refused? (CT, X-rays, U/S, labs)? Why? @ -None What meds were considered but not given or refused? Why? @ -None Did you discuss the management of the patient with other professionals (professionals i.e. , VALENTIN, STUDENT SERVICES ADVISOR, lab, RT, psych nurse, licensed master social worker, telegraph installer, teacher, asset protection officer, special education case manager)? Give summary @ -I spoke with Dr. Spencer and he wanted the patient admitted. I spoke with Mr. Lorenz hospitalist admitted the patient I wrote admitting orders Was smoking cessation discussed for >3mins.? @ -No Was critical care preformed (if so, how long)? @ -No Were there social determinants of health that impacted care today? How? (Homelessness, low income, unemployed, alcoholism, drug addiction, transportation, low edu. Level, literacy, decrease access to med. care, residential, rehab)? @ -No Was there de-escalation of care discussed even if they declined (Discuss DNR or withdrawal of care, Hospice)? DNR status @ -No What co-morbidities impacted this encounter? (DM, HTN, Smoking, COPD, CAD, Cancer, CVA, ARF, Chemo, Hep., AIDS, mental health diagnosis, sleep apnea, mor bid obesity)? @ -None Was patient admitted / discharged? Hospital course, mention meds given and rou te, prescriptions, significant lab abnormalities, going to OR and other pertinent info. @ -Patient's wound appeared to be infected and I started the patient on Vanco and Zosyn. Dr. Berger was c consulted and I consult Dr. Spencer Undiagnosed new problem with uncertain prognosis? @ -No Drug Therapy requiring intensive monitoring for toxicity (Heparin, Nitro, Insulin, Cardizem)? @ -No Were any procedures done? @ -No Diagnosis/symptom? @ -Surgical wound infection Acute, or Chronic, or Acute on Chronic? @ -Acute Uncomplicated (without systemic symptoms) or Complicated (systemic symptoms)? @ -Complicated Side effects of treatment? @ -No Exacerbation, Progression, or Severe Exacerbation? @ -No Poses a threat to life or bodily function? How? (Chest pain, [place], [place], pneumonia, PE, COPD, DKA, ARF, appy, cholecystitis, CVA, Diverticulitis, Homicidal, Suicidal, threat to staff... and all critical care pts) @ -Yes this could lead to sepsis and endorgan dysfunction - Lab Data Result diagrams: 09/25/23 12:52 Lab Results 09/25/23 09/25/23 09/25/23 Range/Units 12:52 12:52 12:52 PT 11.1 (10.0-12.5) sec INR 1.0 (<1.2) APTT 27.5 (22.0-30.0) sec Sodium 131 L (137-145) mmol/L Potassium 4.7 (3.5-5.1) mmol/L Chloride 95 L (98-107) mmol/L Carbon Dioxide 29 (22-30) mmol/L Anion Gap 7 mmol/L BUN 28 H (7-17) mg/dL Creatinine 2.82 H (0.52-1.04) mg/dL Est GFR (CKD-EPI)AfAm 18 (>60 ml/min/1.73 sqM) Est GFR (CKD-EPI)NonAf 15 (>60 ml/min/1.73 sqM) Glucose 151 H (74-99) mg/dL Plasma Lactic Acid Bakari 1.4 (0.7-2.0) mmol/L Calcium 8.4 (8.4-10.2) mg/dL Total Bilirubin 1.2 (0.2-1.3) mg/dL AST 124 H (14-36) U/L ALT 63 H (4-34) U/L Alkaline Phosphatase 182 H (38-126) U/L Total Protein 7.0 (6.3-8.2) g/dL Albumin 3.0 L (3.5-5.0) g/dL Disposition Clinical Impression: Surgical wound infection Disposition: ADMITTED IP TO THIS HOSP Referrals: Omar Chatman MD [Primary Care Provider] - 1-2 days Time of Disposition: 14:03
[2023-09-25] MEDS: SODIUM CHLORIDE 0.9% 500 ML 500 ML IV SCH ×2 (13:15→14:14)
[2023-09-25 13:20] LABS: Partial Thromboplastin Time 27.5 sec (22.0-30.0); Prothrombin Time 11.1 sec (10.0-12.5)
[2023-09-25 13:23] LABS: ALT 63 U/L (4-34); AST 124 U/L (14-36); African American GFR (CKD) 18 (>60 ml/min/1.73 sqM); Alkaline Phosphatase 182 U/L (38-126); Anion Gap 7 mmol/L; Blood Urea Nitrogen 28 mg/dL (7-17); Calcium 8.4 mg/dL (8.4-10.2); Carbon Dioxide 29 mmol/L (22-30); Chloride 95 mmol/L (98-107); Glucose 151 mg/dL (74-99); Non-African American GFR(CKD) 15 (>60 ml/min/1.73 sqM); Sodium 131 mmol/L (137-145); Total Bilirubin 1.2 mg/dL (0.2-1.3)
[2023-09-25 13:54] LABS: Potassium 4.7 mmol/L (3.5-5.1)
[2023-09-25 14:04] LABS: Anisocytosis Slight; Basophils # (A) 0.1 k/uL (0-0.2); Basophils % (A) 0 %; Eosinophils # (A) 0.4 k/uL (0-0.7); Eosinophils % (A) 3 %; HCT 30.5 % (34.0-46.0); HGB 9.5 gm/dL (11.4-16.0); Hypochromasia Marked; Lymphocytes # (A) 2.8 k/uL (1.0-4.8); Lymphocytes % (A) 19 %; MCHC 31.3 g/dL (31.0-37.0); MCV 99.3 fL (80.0-100.0); Macrocytosis Moderate; Mean Platelet Volume 8.9; Monocytes # (A) 0.7 k/uL (0-1.0); Monocytes % (A) 5 %; Neutrophils # (A) 10.4 k/uL (1.3-7.7); Neutrophils % (A) 71 %; Platelet Count 254 k/uL (150-450); RBC 3.07 m/uL (3.80-5.40); RDW 19.1 % (11.5-15.5); WBC 14.6 k/uL (3.8-10.6)
[2023-09-25] MEDS ORDERED: SODIUM CHLORIDE 0.9% 1,000 ML IV ONE (14:08)
--- NOTE | 2023-09-25 14:09 | P.GSCN ---
History of Present Illness Consult date: 09/25/23 Reason for Consult: Infected AKA site Requesting physician: Reji Saucedo History of present illness: This is a pleasant 78-year-old female who was sent into the emergency department with concerns previous left gjqba-kpq-wgxf amputation wound draining purulent drainage and increased tenderness. She had a left wjuhj-dba-ysoe amputation done on 08/09/[address] Akhtar for chronically infected left knee hardware with previous spacer and chronic wound with draining sinus. Past medical history also includes atrial fibrillation with permanent pacemaker and on Eliquis, dementia, diabetes mellitus, GERD, hyperlipidemia, hypertension, chronic renal disease, seizure disease and vascular disorder. She states she has been afebrile does have some tenderness at the site, denies any abdominal pain, shortness of breath, chest pain, fevers or chills. Recent outpatient wound culture done on 09/18/2023 positive for Klebsiella pneumoniae, she was taking oral Bactrim with no improvement and came in for further evaluation. Review of Systems A 14 point review systems was completed all pertinent positives and negatives as stated in the HPI. Past Medical History Past Medical History: Atrial Fibrillation, Chest Pain / Angina, Dementia, Diabetes Mellitus, GERD/Reflux, Hyperlipidemia, Hypertension, Musculoskeletal Disorder, Neurologic Disorder, Pneumonia, Renal Disease, Seizure Disorder, Vascular Disorder Additional Past Medical History / Comment(s): IDDM type II, paroxysmal atrial fibrilation, parkinsons, epilepsy, muscle weakness, anemia, hyperkalemia, sick sinus syndrome with pacemaker, PVD, CKD stage 3, gastritis, dysphagia, gout History of Any Multi-Drug Resistant Organisms: None Reported Year Discovered:: 08/06/23 MRSA MDRO Source:: Left Knee MRSA and MDRO Past Surgical History: Pacemaker Past Anesthesia/Blood Transfusion Reactions: No Reported Reaction Type of Cardiac Device: Permanent Pacemaker Device Placement Date:: unknown Past Psychological History: Depression Smoking Status: Never smoker Past Alcohol Use History: None Reported Past Drug Use History: None Reported - Past Family History Father Family Medical History: Unable to Obtain Mother Family Medical History: Unable to Obtain Medications and Allergies Home Medications Medication Instructions Recorded Confirmed Type Atorvastatin [Lipitor] 40 mg PO HS@199912/29/21 09/25/23 History Ferrous Sulfate [Iron (65 MG 325 mg PO BID@0800,1700 12/29/21 09/25/23 History Elemental)] Omeprazole 20 mg PO DAILY@0800 12/29/21 09/25/23 History Lactulose [Cephulac] 20 gm PO DAILY PRN ml 01/05/22 09/25/23 Rx Sodium Chloride [Saline Mist] 1 spray EA NOSTRIL Q2H PRN 01/19/23 09/25/23 History allopurinoL [Zyloprim] 300 mg PO DAILY 01/19/23 09/25/23 History bisacodyL [Dulcolax] 10 mg RECTAL DAILY PRN 01/19/23 09/25/23 History Acetaminophen Tab [Tylenol] 500 mg PO Q6HR PRN tab 01/23/23 09/25/23 Rx Ipratropium-Albuterol Nebulize 3 ml INHALATION RT-BID PRN 05/04/23 09/25/23 History [Duoneb 0.5 mg-3 mg/3 ml Soln] Magnesium Oxide [Mag-Ox] 400 mg PO HS@199905/04/23 09/25/23 History Ondansetron [Zofran] 4 mg PO Q6H PRN 05/04/23 09/25/23 History Ergocalciferol (Vitamin D2) 1,250 mcg PO FR@1200 08/06/23 09/25/23 History [Drisdol (50,000 Iu)] Sertraline [Zoloft] 25 mg PO DAILY 08/06/23 09/25/23 History Midodrine [ProAmatine] 5 mg PO BID PRN tab 08/28/23 09/25/23 Rx Apixaban [Eliquis] 2.5 mg PO BID@0800,1700 09/25/23 09/25/23 History Folic Acid/Vit B Complex and C 0.8 mg PO DAILY@1200 09/25/23 09/25/23 History [Nephro-Dipti Tablet] Gabapentin [Neurontin] 300 mg PO BID@0800,1700 09/25/23 09/25/23 History HYDROcodone/APAP 5-325MG [[place] 1 tab PO QID 09/25/23 09/25/23 History 5-325] L.acidoph,Paracasei, B.lactis 1 cap PO HS@2100 09/25/23 09/25/23 History [Probiotic] Liquicell 30 ml PO BID@0800,1700 09/25/23 09/25/23 History Sulfamethoxazole/Trimethoprim 1 tab PO DAILY@1700 09/25/23 09/25/23 History [Bactrim DS 800-160 mg] Tamsulosin [Flomax] 0.4 mg PO DAILY@1700 09/25/23 09/25/23 History Torsemide [Demadex] 40 mg PO BID@0800,1700 09/25/23 09/25/23 History carvediloL [Coreg] 6.25 mg PO BID@0800,17009/25/23 09/25/23 History clonazePAM [KlonoPIN] 0.5 mg PO HS@199909/25/23 09/25/23 History Allergies Allergy/AdvReac Type Severity Reaction Status Date / Time codeine Allergy Unknown Verified 09/25/23 12:05 hydromorphone [From Dilaudid] Allergy Unknown Verified 09/25/23 12:05 acetaminophen AdvReac see comment Verified 09/25/23 12:05 Surgical - Exam Vital Signs Temp Pulse Resp BP Pulse Ox 98 F 72 18 113/50 96 09/25/23 11:17 09/25/23 11:17 09/25/23 11:17 09/25/23 11:17 09/25/23 11:17 General appearance: The patient is alert, oriented, appears in no acute distress. Obese. HET: Head is normocephalic and atraumatic. Pupils are equal and reactive. Neck: Supple. Heart: Regular. Lungs: Equal expansion, normal respiratory effort. Abdomen: Soft, obese, nondistended. Extremities: Left sivxz-deu-xitf amputation surgical site well-healed with a opening on the lateral aspect with induration and purulent bloody drainage. No significant surrounding erythema. Neurological: No focal deficits. Assessment and Plan Assessment: 1. Infected left czqmr-rrh-ttvm amputation site 2. History of left feykg-kim-mwxd amputation for infected left knee hardware and chronic wound done on 08/09/2023 3. Diabetes mellitus 4. Atrial fibrillation with permanent pacemaker 5. Dementia Plan: 1. Obtain wound cultures 2. CT of left lower extremity ordered to evaluate for abscess, osteomyelitis 3. Patient may require possible revision of left sfeic-cqn-nnmb amputation site 4. Further recommendations forthcoming per vascular surgeon 5. Antibiotic recommendations per infectious disease Thank you for this consultation, we will continue to follow. The impression and plan of care has been dictated as directed. I performed a history and examination of this patient, discussed the same with the dictator. I agree with the dictator's note ,documented as a scribe. Any additional findings or plans will be noted.
[2023-09-25] MEDS ORDERED: bisacodyL 10 MG SUPP RECTAL PRN (15:59)
[2023-09-25] MEDS ORDERED: ACETAMINOPHEN TAB 500 MG TAB PO PRN (15:59)
[2023-09-25] MEDS ORDERED: MIDODRINE 5 MG TAB PO PRN (15:59)
[2023-09-25] MEDS ORDERED: IPRATROPIUM-ALBUTEROL 3 ML NEB INHALATION PRN (15:59)
[2023-09-25] MEDS ORDERED: LACTULOSE 20 GM/30 ML CUP PO PRN (15:59)
[2023-09-25 16:31] LABS: Glucose,Whole Blood 172 mg/dL (70-110)
[2023-09-25] MEDS: HYDROcodone/APAP 5-325MG 1 EACH TAB PO SCH ×2 (16:46→22:58)
[2023-09-25] MEDS: carvediloL 6.25 MG TAB PO SCH (16:46)
[2023-09-25] MEDS: GABAPENTIN 300 MG CAP PO SCH (17:14)
[2023-09-25] MEDS: TAMSULOSIN 0.4 MG CAP.ER.24H PO SCH (17:14)
[2023-09-25] MEDS: TORSEMIDE 20 MG TAB PO SCH (17:30)
[2023-09-25] MEDS: ATORVASTATIN 40 MG TAB PO SCH (20:11)
[2023-09-25] MEDS: clonazePAM 0.5 MG TAB PO SCH (20:11)
--- NOTE | 2023-09-26 00:24 | P.HPIM ---
History of Present Illness H&P Date: 09/25/23 Chief Complaint: Wound infection Patient is a 78-year-old female with a known history of ESRD on hemodialysis, hypertension, diabetes type 2, paroxysmal send fibrillation on anticoagulation, Parkinson's disease, history of left AKA done on 08/09/2023 due to chronically infected left knee hardware was sent to ER from [facility] due to complaints of left AKA stump wound draining purulent discharge. Patient had recent wound cultures done on 09/18/2023 showed Klebsiella pneumonia. Patient was taking oral Bactrim with no improvement and was referred to ER. Otherwise patient does have underlying dementia and also language barrier. Most of the history was taken from her family at bedside. Patient is afebrile. No nausea vomiting or diarrhea. No complaints of chest pain or shortness of breath. No headache or dizziness. EKG showed sinus rhythm. Laboratory showed WBC 14.6, hemoglobin 9.5 and platelets 254. Sodium 131 potassium 4.7 chloride 95, BUN 28 and creatinine 2.82 and blood sugar 151. AST 124 ALT 63 and alk phos 182 Review of Systems ROS unobtainable: due to mental status Past Medical History Past Medical History: Atrial Fibrillation, Chest Pain / Angina, CVA/TIA, Dementia, Diabetes Mellitus, GERD/Reflux, Hyperlipidemia, Hypertension, Musculoskeletal Disorder, Neurologic Disorder, Pneumonia, Renal Disease, Vascular Disorder Additional Past Medical History / Comment(s): IDDM type II, paroxysmal atrial fibrilation, parkinsons-tremors, muscle weakness, anemia, hyperkalemia, sick sinus syndrome with pacemaker, PVD, CKD stage 3, gastritis, dysphagia, gout History of Any Multi-Drug Resistant Organisms: None Reported Date of last positivie culture/infection: 08/06/23 MRSA MDRO Source:: Left Knee MRSA and MDRO Past Surgical History: Pacemaker Past Anesthesia/Blood Transfusion Reactions: No Reported Reaction Type of Cardiac Device: Permanent Pacemaker Device Placement Date:: unknown Past Psychological History: Depression Additional Psychological History / Comment(s): Pt resides at [facility]. She is a jared lift to wheelchair. She is incontinent. She can feed herself if her meal is set up. She understands [place]. She speaks with a thick accent. Smoking Status: Never smoker Past Alcohol Use History: None Reported Past Drug Use History: None Reported - Past Family History Father Family Medical History: Unable to Obtain Mother Family Medical History: Unable to Obtain Medications and Allergies Home Medications Medication Instructions Recorded Confirmed Type Atorvastatin [Lipitor] 40 mg PO HS@199912/29/21 09/25/23 History Ferrous Sulfate [Iron (65 MG 325 mg PO BID@0800,1700 12/29/21 09/25/23 History Elemental)] Omeprazole 20 mg PO DAILY@0800 12/29/21 09/25/23 History Lactulose [Cephulac] 20 gm PO DAILY PRN ml 01/05/22 09/25/23 Rx Sodium Chloride [Saline Mist] 1 spray EA NOSTRIL Q2H PRN 01/19/23 09/25/23 History allopurinoL [Zyloprim] 300 mg PO DAILY 01/19/23 09/25/23 History bisacodyL [Dulcolax] 10 mg RECTAL DAILY PRN 01/19/23 09/25/23 History Acetaminophen Tab [Tylenol] 500 mg PO Q6HR PRN tab 01/23/23 09/25/23 Rx Ipratropium-Albuterol Nebulize 3 ml INHALATION RT-BID PRN 05/04/23 09/25/23 History [Duoneb 0.5 mg-3 mg/3 ml Soln] Magnesium Oxide [Mag-Ox] 400 mg PO HS@199905/04/23 09/25/23 History Ondansetron [Zofran] 4 mg PO Q6H PRN 05/04/23 09/25/23 History Ergocalciferol (Vitamin D2) 1,250 mcg PO FR@1200 08/06/23 09/25/23 History [Drisdol (50,000 Iu)] Sertraline [Zoloft] 25 mg PO DAILY 08/06/23 09/25/23 History Midodrine [ProAmatine] 5 mg PO BID PRN tab 08/28/23 09/25/23 Rx Apixaban [Eliquis] 2.5 mg PO BID@0800,1700 09/25/23 09/25/23 History Folic Acid/Vit B Complex and C 0.8 mg PO DAILY@1200 09/25/23 09/25/23 History [Nephro-Dipti Tablet] Gabapentin [Neurontin] 300 mg PO BID@0800,1700 09/25/23 09/25/23 History HYDROcodone/APAP 5-325MG [[place] 1 tab PO QID 09/25/23 09/25/23 History 5-325] L.acidoph,Paracasei, B.lactis 1 cap PO HS@2100 09/25/23 09/25/23 History [Probiotic] Liquicell 30 ml PO BID@0800,1700 09/25/23 09/25/23 History Sulfamethoxazole/Trimethoprim 1 tab PO DAILY@1700 09/25/23 09/25/23 History [Bactrim DS 800-160 mg] Tamsulosin [Flomax] 0.4 mg PO DAILY@1700 09/25/23 09/25/23 History Torsemide [Demadex] 40 mg PO BID@0800,1700 09/25/23 09/25/23 History carvediloL [Coreg] 6.25 mg PO BID@0800,1700 09/25/23 09/25/23 History clonazePAM [KlonoPIN] 0.5 mg PO HS@199909/25/23 09/25/23 History Allergies Allergy/AdvReac Type Severity Reaction Status Date / Time codeine Allergy Unknown Verified 09/25/23 12:05 hydromorphone [From Dilaudid] Allergy Unknown Verified 09/25/23 12:05 acetaminophen AdvReac see comment Verified 09/25/23 12:05 Physical Exam Vitals: Vital Signs Temp Pulse Resp BP Pulse Ox 09/25/23 14:12 72 18 144/69 96 09/25/23 13:25 70 18 123/88 97 09/25/23 12:59 69 17 120/54 96 09/25/23 11:17 98 F 72 18 113/50 96 Intake and Output 09/25/23 09/25/23 09/25/23 06:59 14:59 22:59 Other: Weight 68.039 kg 68.039 kg PHYSICAL EXAMINATION: Patient is lying in the bed no acute distress, awake alert and oriented x 2. Unable to communicate due to language barrier... HEENT: Normocephalic. Neck is supple. Pupils reactive. Nostrils clear. Oral cavity is moist. Neck reveals no JVD, carotid bruits, or thyromegaly. CHEST EXAMINATION: Trachea is central. Symmetrical expansion. Lung garland clear to auscultation and percussion. CARDIAC: Normal S1, S2 with no gallops. No murmurs ABDOMEN: Soft. Bowel sounds present. Nontender. No organomegaly. No abdominal bruits. Extremities: Left lower extremity stump site is swollen with minimal discharge in the lower ankle. Surrounding redness. Neurologically awake, alert, oriented x2. Able to move extremities. No gross focal deficits. Underlying cognitive impairment. Skin: No rash or skin lesions. Psychiatric: Coperative. Could not be assessed completely., Musculoskeletal: No joint swelling or deformity. . Results CBC & Chem 7: 09/25/23 12:52 09/25/23 12:52 Labs: Abnormal Lab Results - Last 24 Hours (Table) 09/25/23 09/25/23 Range/Units 12:52 12:52 WBC 14.6 H (3.8-10.6) k/uL RBC 3.07 L (3.80-5.40) m/uL Hgb 9.5 L (11.4-16.0) gm/dL Hct 30.5 L (34.0-46.0) % RDW 19.1 H (11.5-15.5) % Neutrophils # 10.4 H (1.3-7.7) k/uL Sodium 131 L (137-145) mmol/L Chloride 95 L (98-107) mmol/L BUN 28 H (7-17) mg/dL Creatinine 2.82 H (0.52-1.04) mg/dL Glucose 151 H (74-99) mg/dL AST 124 H (14-36) U/L ALT 63 H (4-34) U/L Alkaline Phosphatase 182 H (38-126) U/L Albumin 3.0 L (3.5-5.0) g/dL Thrombosis Risk Factor Assmnt - DVT/VTE Prophylaxis DVT/VTE Prophylaxis: Pharmacologic Prophylaxis ordered Assessment and Plan Assessment: Infected left AKA amputation site. Recent cultures on 09/18/2023 showed Klebsiella pneumonia. History of left AKA on 08/09/2023 due to chronic knee hardware infection/fistula ESRD on hemodialysis Diabetes type 2 Paroxysmal atrial fibrillation Sick sinus syndrome status post permanent pacemaker placement Seizure disorder Dementia Parkinson's disease GERD Hypertension Hyperlipidemia DVT prophylaxis. Patient is already on Eliquis. Plan: Patient will be continued on antibiotics ceftriaxone. Patient was given a dose of vancomycin and Zosyn in the ER. Recent wound cultures growing Klebsiella pneumonia. Vascular surgery was consulted. CT of the left lower extremity was ordered to rule out abscess. Continue with home medications and follow-up renal function. ID and nephrology consult for further evaluation. Continue to follow closely. Prognosis is guarded. Discussed with the family at bedside in detail. Time with Patient: Greater than 30
[2023-09-26] MEDS: HYDROcodone/APAP 5-325MG 1 EACH TAB PO SCH ×4 (08:15→21:56)
[2023-09-26] MEDS: PANTOPRAZOLE 40 MG TABLET PO SCH (08:16)
[2023-09-26] MEDS: SERTRALINE 25 MG TAB PO SCH (08:16)
[2023-09-26] MEDS: carvediloL 6.25 MG TAB PO SCH ×2 (08:16→16:56)
[2023-09-26] MEDS: GABAPENTIN 300 MG CAP PO SCH ×2 (08:16→16:56)
[2023-09-26] MEDS: allopurinoL 300 MG TAB PO SCH (08:16)
[2023-09-26] MEDS: TORSEMIDE 20 MG TAB PO SCH ×2 (08:24→16:56)
[2023-09-26] MEDS ORDERED: VANCOMYCIN 1,250 MG in SODIUM CHLORIDE 0.9% 250 ML IVPB ONE (09:00)
--- NOTE | 2023-09-26 10:20 | P.PN ---
Subjective Progress Note Date: 09/26/23 Principal diagnosis: Infected left amputation site Patient was seen and examined today in the ICU waiting for a room. She is without any complaints. She is afebrile. She has end-stage renal disease on hemodialysis, awaiting recommendations from nephrology. CT with contrast was put on hold due to patient's kidney function yesterday. Today's labs currently pending. Believe patient is Sunday dialysis and will await recommendations from nephrology with hopes for CT with contrast today followed by dialysis. Objective - Vital Signs Vital signs: Vital Signs Temp 97.3 F L 09/26/23 08:00 Pulse 67 09/26/23 08:00 Resp 18 09/26/23 08:00 BP 138/47 09/26/23 08:00 Pulse Ox 100 09/26/23 08:00 FiO2 Intake & Output 09/25/23 09/26/23 09/26/23 18:59 06:59 18:59 Weight 68.039 kg Other: Voiding Method Diaper # Voids 2 # Bowel Movements 1 - Exam General appearance: The patient is alert, oriented, obese. Appears in no acute distress. HET: Head is normocephalic and atraumatic. Pupils are equal and reactive. Abdomen: Soft, obese, nondistended. Extremities: Left bmqik-gqc-kwli amputation surgical site well-healed with an opening on the lateral aspect and purulent bloody drainage. No surrounding erythema. Neurological: No focal deficits. - Labs CBC & Chem 7: 09/25/23 12:52 09/25/23 12:52 Labs: Abnormal Lab Results - Last 24 Hours (Table) 09/25/23 09/25/23 09/25/23 Range/Units 12:52 12:52 16:29 WBC 14.6 H (3.8-10.6) k/uL RBC 3.07 L (3.80-5.40) m/uL Hgb 9.5 L (11.4-16.0) gm/dL Hct 30.5 L (34.0-46.0) % RDW 19.1 H (11.5-15.5) % Neutrophils # 10.4 H (1.3-7.7) k/uL Sodium 131 L (137-145) mmol/L Chloride 95 L (98-107) mmol/L BUN 28 H (7-17) mg/dL Creatinine 2.82 H (0.52-1.04) mg/dL Glucose 151 H (74-99) mg/dL POC Glucose (mg/dL) 172 H (70-110) mg/dL AST 124 H (14-36) U/L ALT 63 H (4-34) U/L Alkaline Phosphatase 182 H (38-126) U/L Albumin 3.0 L (3.5-5.0) g/dL Microbiology - Last 24 Hours (Table) 09/25/23 12:52 Gram Stain - Preliminary Leg - Left Assessment and Plan Assessment: 1. Infected left zxeje-kzg-ysjf amputation site 2. History of left kwnxh-skp-qwqu amputation for infected left knee hardware and chronic wound done on 08/09/2023 3. Diabetes mellitus 4. Atrial fibrillation with permanent pacemaker 5. Dementia Plan: 1. Wound cultures obtained, currently pending 2. CT of left lower extremity with contrast to evaluate for abscess, osteomyelitis. This was cleared with nephrology, Dr. Flores as patient will get hemodialysis today to follow. 3. Patient may require possible revision of left afopg-ngv-qfki amputation site 4. Further recommendations forthcoming per vascular surgeon 5. Antibiotic recommendations per infectious disease Thank you for this consultation, we will continue to follow. The impression and plan of care has been dictated as directed. Dr. Akhtar I performed a history and examination of this patient, discussed the same with the dictator. I agree with the dictator's note ,documented as a scribe. Any additional findings or plans will be noted.
[2023-09-26 11:11] LABS: Basophils # (A) 0.05 X 10*3/uL (0.00-0.10); Basophils % (A) 0.4 %; Eosinophils # (A) 0.64 X 10*3/uL (0.04-0.35); Eosinophils % (A) 5.6 %; HCT 33.6 % (37.2-46.3); HGB 9.9 g/dL (12.0-15.0); Lymphocytes # (A) 2.48 X 10*3/uL (0.90-5.00); Lymphocytes % (A) 21.9 %; MCH 29.8 pg (27.0-32.0); MCHC 29.5 g/dL (32.0-37.0); MCV 101.2 FL (80.0-97.0); Mean Platelet Volume 10.8 FL (9.5-12.2); Monocytes % (A) 6.2 %; NRBC Per 100 WBC 0 X 10*3/uL (0.00-0.01); Neutrophils # (A) 7.38 X 10*3/uL (1.80-7.70); Platelet Count 226 X 10*3/uL (140-440); RBC 3.32 X 10*6/uL (4.10-5.20); RDW 19.8 % (11.5-14.5); WBC 11.35 X 10*3/uL (4.50-10.00)
[2023-09-26 11:31] LABS: ALT 45 U/L (8-44); AST 47 U/L (13-35); Albumin 2.4 g/dL (3.8-4.9); Alkaline Phosphatase 155 U/L (41-126); BUN/Creat Ratio 7.74 Ratio (12.00-20.00); Blood Urea Nitrogen 29.4 mg/dL (9.0-27.0); Calcium 8.3 mg/dL (8.7-10.3); Chloride 99 mmol/L (96-109); Glucose 126 mg/dL (70-110); Potassium 3.8 mmol/L (3.5-5.5); Sodium 137 mmol/L (135-145); Total Bilirubin 0.3 mg/dL (0.3-1.2); Total Protein 5.4 g/dL (6.2-8.2)
[2023-09-26] MEDS: FOLIC ACID-VIT B COMPLEX-VIT C 1 CAP PO SCH (11:35)
--- NOTE | 2023-09-26 13:08 | CT ---
EXAMINATION TYPE: CT lower extremity LT w con DATE OF EXAM: 09/26/2023 COMPARISON: None HISTORY: Left leg amputation CT DLP: 1082.5 mGycm Automated exposure control for dose reduction was used. Contrast: None Technique: Axial images 3 mm thick sections. Reconstructed images in the coronal and sagittal plane. FINDINGS: Soft tissue inflammatory changes are within the thigh. Inferior to the femoral diaphyseal amputation is a low-density collection measuring 2.9 x 2.1 cm. Thi s extends adjacent to the distal femur. There is an additional collection which may be in communicati on with this region extending posterior-lateral to the skin surface. This low-density collection with thick wall may be additional abscess measuring 9 cm in length by 1.2 cm in depth. This does contain small foci of air. IMPRESSION: 1. ABSCESS INFERIOR TO THE AMPUTATED FEMUR. A SECOND OR POTENTIALLY COMMUNICATING ABSCESS WITH THE IN FERIOR FEMORAL ABSCESS EXTENDS LATERAL TO THE SUBCUTANEOUS TISSUE AND CONTAINS AIR.
[2023-09-26] MEDS: TAMSULOSIN 0.4 MG CAP.ER.24H PO SCH (16:56)
--- NOTE | 2023-09-26 20:16 | P.NPCON ---
History of Present Illness - Reason for Consult end stage renal disease - History of Present Illness Patient is an 78-year-old female with end-stage renal disease maintained on hemodialysis on a Sunday schedule. Patient is admitted to the hospital with history of drainage from her recent left AKA site. Complaining of increased weakness No history of fever or chills No nausea or vomiting Patient has been evaluated by vascular surgery. CT scan of the left lower extremity has been ordered. Review of Systems As per HPI Past Medical History Past Medical History: Atrial Fibrillation, Chest Pain / Angina, CVA/TIA, Demen tia, Diabetes Mellitus, GERD/Reflux, Hyperlipidemia, Hypertension, Musculoskeletal Disorder, Neurologic Disorder, Pneumonia, Renal Disease, Vascular Disorder Additional Past Medical History / Comment(s): IDDM type II, paroxysmal atrial fibrilation, parkinsons-tremors, muscle weakness, anemia, hyperkalemia, sick sinus syndrome with pacemaker, PVD, CKD stage 3, gastritis, dysphagia, gout History of Any Multi-Drug Resistant Organisms: None Reported Date of last positivie culture/infection: 08/06/23 MRSA MDRO Source:: Left Knee MRSA and MDRO Past Surgical History: Pacemaker Past Anesthesia/Blood Transfusion Reactions: No Reported Reaction Type of Cardiac Device: Permanent Pacemaker Device Placement Date:: unknown Past Psychological History: Depression Additional Psychological History / Comment(s): Pt resides at [facility]. She is a jared lift to wheelchair. She is incontinent. She can feed herself if her meal is set up. She understands [place]. She speaks with a thick accent. Smoking Status: Never smoker Past Alcohol Use History: None Reported Past Drug Use History: None Reported - Past Family History Father Family Medical History: Unable to Obtain Mother Family Medical History: Unable to Obtain Medications and Allergies Home Medications Medication Instructions Recorded Confirmed Type Atorvastatin [Lipitor] 40 mg PO HS@199912/29/21 09/25/23 History Ferrous Sulfate [Iron (65 MG 325 mg PO BID@0800,1700 12/29/21 09/25/23 History Elemental)] Omeprazole 20 mg PO DAILY@0800 12/29/21 09/25/23 History Lactulose [Cephulac] 20 gm PO DAILY PRN ml 01/05/22 09/25/23 Rx Sodium Chloride [Saline Mist] 1 spray EA NOSTRIL Q2H PRN 01/19/23 09/25/23 History allopurinoL [Zyloprim] 300 mg PO DAILY 01/19/23 09/25/23 History bisacodyL [Dulcolax] 10 mg RECTAL DAILY PRN 01/19/23 09/25/23 History Acetaminophen Tab [Tylenol] 500 mg PO Q6HR PRN tab 01/23/23 09/25/23 Rx Ipratropium-Albuterol Nebulize 3 ml INHALATION RT-BID PRN 05/04/23 09/25/23 History [Duoneb 0.5 mg-3 mg/3 ml Soln] Magnesium Oxide [Mag-Ox] 400 mg PO HS@199905/04/23 09/25/23 History Ondansetron [Zofran] 4 mg PO Q6H PRN 05/04/23 09/25/23 History Ergocalciferol (Vitamin D2) 1,250 mcg PO FR@1200 08/06/23 09/25/23 History [Drisdol (50,000 Iu)] Sertraline [Zoloft] 25 mg PO DAILY 08/06/23 09/25/23 History Midodrine [ProAmatine] 5 mg PO BID PRN tab 08/28/23 09/25/23 Rx Apixaban [Eliquis] 2.5 mg PO BID@0800,1700 09/25/23 09/25/23 History Folic Acid/Vit B Complex and C 0.8 mg PO DAILY@1200 09/25/23 09/25/23 History [Nephro-Dipti Tablet] Gabapentin [Neurontin] 300 mg PO BID@0800,1700 09/25/23 09/25/23 History HYDROcodone/APAP 5-325MG [[place] 1 tab PO QID 09/25/23 09/25/23 History 5-325] L.acidoph,Paracasei, B.lactis 1 cap PO HS@2100 09/25/23 09/25/23 History [Probiotic] Liquicell 30 ml PO BID@0800,1700 09/25/23 09/25/23 History Sulfamethoxazole/Trimethoprim 1 tab PO DAILY@1700 09/25/23 09/25/23 History [Bactrim DS 800-160 mg] Tamsulosin [Flomax] 0.4 mg PO DAILY@1700 09/25/23 09/25/23 History Torsemide [Demadex] 40 mg PO BID@0800,1700 09/25/23 09/25/23 History carvediloL [Coreg] 6.25 mg PO BID@0800,1700 09/25/23 09/25/23 History clonazePAM [KlonoPIN] 0.5 mg PO HS@199909/25/23 09/25/23 History Allergies Allergy/AdvReac Type Severity Reaction Status Date / Time codeine Allergy Unknown Verified 09/25/23 12:05 hydromorphone [From Dilaudid] Allergy Unknown Verified 09/25/23 12:05 acetaminophen AdvReac see comment Verified 09/25/23 12:05 Physical Exam Vitals: Vital Signs Temp Pulse Resp BP Pulse Ox 09/26/23 16:33 97.6 F 56 L 16 147/75 100 09/26/23 13:20 98.7 F 64 16 130/59 98 09/26/23 08:00 97.3 F L 67 18 138/47 100 09/26/23 00:10 98.6 F 67 16 120/47 97 Intake and Output 09/26/23 09/26/23 09/26/23 06:59 14:59 22:59 Intake Total 240 Balance 240 Intake: Oral 240 Other: Voiding Method Diaper # Voids 2 2 1 # Bowel Movements 1 Patient is awake, comfortable, no acute distress Examination of the heart S1 and S2 Examination of the lungs shows decreased breath sounds at the bases Abdomen is soft obese nontender Examination of lower extremity shows left AKA with drainage noted from the stump Trace edema noted right lower extremity. STATISTICIAN exam grossly intact Results - Lab Results Most recent lab results Calcium 8.3 mg/dL (8.7-10.3) L 09/26/23 06:24 09/26/23 06:24 09/26/23 06:24 Assessment and Plan Assessment: 1. End-stage renal disease on hemodialysis on a Sunday schedule via right IJ permacath 2. Infected left AKA stump 3. CKD mineral bone disorder 4. Paroxysmal A-fib Plan: Okay to proceed with CT scan with IV contrast Hemodialysis today. Continue antibiotics Continue with oral diuretics. Thank you for the consultation. We will continue to follow the patient with you during her hospitalization.
[2023-09-26] MEDS: clonazePAM 0.5 MG TAB PO SCH (21:56)
[2023-09-26] MEDS: ATORVASTATIN 40 MG TAB PO SCH (21:56)
--- NOTE | 2023-09-27 04:29 | P.CONS ---
History of Present Illness - Reason for Consult Consult date: 09/26/23 - History of Present Illness Patient is a 78-year-old female with a past medical history significant for atrial fibrillation hypertension hyperlipidemia diabetes mellitus patient have a chronic nonhealing wound to the left lower extremity requiring left [id number]-datb amputation patient was stabilized and discharged back to the detention patient has not been brought back to the hospital concerning for drainage from the left AKA site apparently the patient has been treated with the Bactrim with no improvement in outpatient culture done on 09/18/2023 positive for Klebsiella pneumoniae. On presentation to the hospital patient was afebrile and the patient denies having any fever or any chills has been complaining of feeling weak no headache no chest pain no shortness of breath or cough no abdominal pain did have some dull aching pain to the left AKA stump however the patient was not able to quantify it any further and did have minimal drainage on the dressing. On presentation to the hospital the patient was afebrile no fever have recorded subsequently patient was not tachycardic hypotensive or hypoxic patient did have white count of 14.6 with a left shift BUN/creatinine is mildly elevated liver isms are mildly elevated blood and local culture has been obtained patient was started on Rocephin 2 g daily infectious disease was consulted for further management of antibiotic therapy Past Medical History Past Medical History: Atrial Fibrillation, Chest Pain / Angina, CVA/TIA, Dementia, Diabetes Mellitus, GERD/Reflux, Hyperlipidemia, Hypertension, Musculoskeletal Disorder, Neurologic Disorder, Pneumonia, Renal Disease, Vascular Disorder Additional Past Medical History / Comment(s): IDDM type II, paroxysmal atrial fibrilation, parkinsons-tremors, muscle weakness, anemia, hyperkalemia, sick sinus syndrome with pacemaker, PVD, CKD stage 3, gastritis, dysphagia, gout History of Any Multi-Drug Resistant Organisms: None Reported Year Discovered:: 08/06/23 MRSA MDRO Source:: Left Knee MRSA and MDRO Past Surgical History: Pacemaker Past Anesthesia/Blood Transfusion Reactions: No Reported Reaction Type of Cardiac Device: Permanent Pacemaker Device Placement Date:: unknown Past Psychological History: Depression Additional Psychological History / Comment(s): Pt resides at [facility]. She is a jared lift to wheelchair. She is incontinent. She can feed herself if her meal is set up. She understands [place]ese. She speaks with a thick accent. Smoking Status: Never smoker Past Alcohol Use History: None Reported Past Drug Use History: None Reported - Past Family History Father Family Medical History: Unable to Obtain Mother Family Medical History: Unable to Obtain Medications and Allergies Home Medications Medication Instructions Recorded Confirmed Type Atorvastatin [Lipitor] 40 mg PO HS@199912/29/21 09/25/23 History Ferrous Sulfate [Iron (65 MG 325 mg PO BID@0800,1700 12/29/21 09/25/23 History Elemental)] Omeprazole 20 mg PO DAILY@0800 12/29/21 09/25/23 History Lactulose [Cephulac] 20 gm PO DAILY PRN ml 01/05/22 09/25/23 Rx Sodium Chloride [Saline Mist] 1 spray EA NOSTRIL Q2H PRN 01/19/23 09/25/23 History allopurinoL [Zyloprim] 300 mg PO DAILY 01/19/23 09/25/23 History bisacodyL [Dulcolax] 10 mg RECTAL DAILY PRN 01/19/23 09/25/23 History Acetaminophen Tab [Tylenol] 500 mg PO Q6HR PRN tab 01/23/23 09/25/23 Rx Ipratropium-Albuterol Nebulize 3 ml INHALATION RT-BID PRN 05/04/23 09/25/23 History [Duoneb 0.5 mg-3 mg/3 ml Soln] Magnesium Oxide [Mag-Ox] 400 mg PO HS@199905/04/23 09/25/23 History Ondansetron [Zofran] 4 mg PO Q6H PRN 05/04/23 09/25/23 History Ergocalciferol (Vitamin D2) 1,250 mcg PO FR@1200 08/06/23 09/25/23 History [Drisdol (50,000 Iu)] Sertraline [Zoloft] 25 mg PO DAILY 08/06/23 09/25/23 History Midodrine [ProAmatine] 5 mg PO BID PRN tab 08/28/23 09/25/23 Rx Apixaban [Eliquis] 2.5 mg PO BID@0800,1700 09/25/23 09/25/23 History Folic Acid/Vit B Complex and C 0.8 mg PO DAILY@1200 09/25/23 09/25/23 History [Nephro-Dipti Tablet] Gabapentin [Neurontin] 300 mg PO BID@0800,1700 09/25/23 09/25/23 History HYDROcodone/APAP 5-325MG [Lovell 1 tab PO QID 09/25/23 09/25/23 History 5-325] L.acidoph,Paracasei, B.lactis 1 cap PO HS@2100 09/25/23 09/25/23 History [Probiotic] Liquicell 30 ml PO BID@0800,1700 09/25/23 09/25/23 History Sulfamethoxazole/Trimethoprim 1 tab PO DAILY@1700 09/25/23 09/25/23 History [Bactrim DS 800-160 mg] Tamsulosin [Flomax] 0.4 mg PO DAILY@1700 09/25/23 09/25/23 History Torsemide [Demadex] 40 mg PO BID@0800,1700 09/25/23 09/25/23 History carvediloL [Coreg] 6.25 mg PO BID@0800,1700 09/25/23 09/25/23 History clonazePAM [KlonoPIN] 0.5 mg PO HS@2000 09/25/23 09/25/23 History Allergies Allergy/AdvReac Type Severity Reaction Status Date / Time codeine Allergy Unknown Verified 09/25/23 12:05 hydromorphone [From Dilaudid] Allergy Unknown Verified 09/25/23 12:05 acetaminophen AdvReac see comment Verified 09/25/23 12:05 Physical Exam Vitals: Vital Signs Temp Pulse Pulse Resp BP BP Pulse Ox 09/26/23 00:10 98.6 F 67 16 120/47 97 09/25/23 20:00 98.6 F 66 16 129/44 98 09/25/23 14:12 72 18 144/69 96 09/25/23 13:25 70 18 123/88 97 09/25/23 12:59 69 17 120/54 96 09/25/23 11:17 98 F 72 18 113/50 96 Intake and Output 09/25/23 09/26/23 09/26/23 22:59 06:59 14:59 Other: # Voids 2 # Bowel Movements 1 Weight 68.039 kg Results CBC & Chem 7: 09/26/23 06:24 09/26/23 06:24 Labs: Abnormal Lab Results - Last 24 Hours (Table) 09/25/23 09/25/23 09/25/23 Range/Units 12:52 12:52 16:29 WBC 14.6 H (3.8-10.6) k/uL RBC 3.07 L (3.80-5.40) m/uL Hgb 9.5 L (11.4-16.0) gm/dL Hct 30.5 L (34.0-46.0) % RDW 19.1 H (11.5-15.5) % Neutrophils # 10.4 H (1.3-7.7) k/uL Sodium 131 L (137-145) mmol/L Chloride 95 L (98-107) mmol/L BUN 28 H (7-17) mg/dL Creatinine 2.82 H (0.52-1.04) mg/dL Glucose 151 H (74-99) mg/dL POC Glucose (mg/dL) 172 H (70-110) mg/dL AST 124 H (14-36) U/L ALT 63 H (4-34) U/L Alkaline Phosphatase 182 H (38-126) U/L Albumin 3.0 L (3.5-5.0) g/dL Microbiology - Last 24 Hours (Table) 09/25/23 12:52 Gram Stain - Preliminary Leg - Left Assessment and Plan Plan: 1patient with recent history of left iarjn-uud-byzt amputation now presenting to the hospital with drainage from the left AKA stump site with outpatient culture positive for Klebsiella that was done on 09/18/2023 failing outpatient oral Bactrim DS therapy 2vascular surgery has evaluated the patient and planning for possible revision debridement and hopefully deep culture that will determine further by therapy 3for now we will continue the patient Rocephin 2 g daily on the basis of loss cultures and sensitivity We will follow on clinical condition and cultures to further adjust medication if needed Thank you for this consultation we will follow the patient along with you Dictation was produced using [employer] dictation software. please excuse any grammatical, word or spelling errors. Time with Patient: Greater than 30
[2023-09-27 07:09] LABS: African American GFR (CKD) 22 (>60 ml/min/1.73 sqM); Anion Gap 7 mmol/L; Blood Urea Nitrogen 17 mg/dL (7-17); Calcium 7.7 mg/dL (8.4-10.2); Carbon Dioxide 27 mmol/L (22-30); Chloride 99 mmol/L (98-107); Glucose 177 mg/dL (74-99); Non-African American GFR(CKD) 19 (>60 ml/min/1.73 sqM); Phosphorus 3.2 mg/dL (2.5-4.5); Potassium 3.2 mmol/L (3.5-5.1); Sodium 133 mmol/L (137-145)
--- NOTE | 2023-09-27 07:58 | P.PN ---
Progress Note - Text Progress Note Date: 09/27/23 Spoke to patient's son Albin Hilton on the phone regarding his mother's planned surgery this morning. He is agreeable and had signed consent yesterday. Will move forward as planned with left lower extremity washout, possible revision with wound VAC placement. The impression and plan of care has been dictated as directed. Dr. Akhtar I performed a history and examination of this patient, discussed the same with the dictator. I agree with the dictator's note ,documented as a scribe. Any a dditional findings or plans will be noted.
[2023-09-27] MEDS: TORSEMIDE 20 MG TAB PO SCH ×2 (08:48→17:14)
[2023-09-27] MEDS: carvediloL 6.25 MG TAB PO SCH ×2 (08:49→17:13)
[2023-09-27] MEDS: GABAPENTIN 300 MG CAP PO SCH ×2 (08:49→17:14)
[2023-09-27] MEDS: HYDROcodone/APAP 5-325MG 1 EACH TAB PO SCH ×4 (08:49→22:54)
[2023-09-27] MEDS: PANTOPRAZOLE 40 MG TABLET PO SCH (08:49)
[2023-09-27] MEDS: allopurinoL 300 MG TAB PO SCH (08:49)
[2023-09-27] MEDS: SERTRALINE 25 MG TAB PO SCH (08:49)
[2023-09-27 09:02] LABS: Vancomycin,Random 19.3 ug/mL
[2023-09-27 10:26] LABS: Glucose,Whole Blood 176 mg/dL (70-110)
[2023-09-27] MEDS ORDERED: LACTATED RINGERS 1,000 ML IV ONE (10:27)
[2023-09-27] MEDS ORDERED: ONDANSETRON 4 MG/2 ML VIAL ONE (10:43)
[2023-09-27] MEDS ORDERED: DEXAMETHASONE SOD PHOSPHATE 4 MG/ML 1 ML VIAL IVP ONE (10:48)
[2023-09-27] MEDS ORDERED: FAMOTIDINE 20 MG/2 ML VIAL IVP ONE (10:48)
[2023-09-27] MEDS ORDERED: ONDANSETRON 4 MG/2 ML VIAL IVP ONE (10:48)
[2023-09-27 11:05] LABS: Basophils # (A) 0.03 X 10*3/uL (0.00-0.10); Basophils % (A) 0.3 %; Eosinophils # (A) 0.53 X 10*3/uL (0.04-0.35); Eosinophils % (A) 5.1 %; HCT 30.6 % (37.2-46.3); HGB 9.4 g/dL (12.0-15.0); Lymphocytes # (A) 1.92 X 10*3/uL (0.90-5.00); Lymphocytes % (A) 18.6 %; MCH 30.4 pg (27.0-32.0); MCHC 30.7 g/dL (32.0-37.0); Mean Platelet Volume 10.5 FL (9.5-12.2); Monocytes # (A) 0.63 X 10*3/uL (0.20-1.00); Monocytes % (A) 6.1 %; NRBC Per 100 WBC 0 X 10*3/uL (0.00-0.01); Neutrophils # (A) 7.12 X 10*3/uL (1.80-7.70); Neutrophils % (A) 69.2 %; Platelet Count 238 X 10*3/uL (140-440); RBC 3.09 X 10*6/uL (4.10-5.20); RDW 19.9 % (11.5-14.5)
[2023-09-27] MEDS ORDERED: POTASSIUM CHLORIDE ER 20 MEQ TAB.ER PO STA (11:52)
--- NOTE | 2023-09-27 11:53 | P.PN ---
Subjective Progress Note Date: 09/26/23 Patient is a 78-year-old female with a known history of ESRD on hemodialysis, hypertension, diabetes type 2, paroxysmal send fibrillation on anticoagulation, Parkinson's disease, history of left AKA done on 08/09/2023 due to chronically infected left knee hardware was sent to ER from [facility] due to complaints of left AKA stump wound draining purulent discharge. Patient had recent wound cultures done on 09/18/2023 showed Klebsiella pneumonia. Patient was taking oral Bactrim with no improvement and was referred to ER. Otherwise patient does have underlying dementia and also language barrier. Most of the history was taken from her family at bedside. Patient is afebrile. No nausea vomiting or diarrhea. No complaints of chest pain or shortness of breath. No headache or dizziness. EKG showed sinus rhythm. Laboratory showed WBC 14.6, hemoglobin 9.5 and platelets 254. Sodium 131 potassium 4.7 chloride 95, BUN 28 and creatinine 2.82 and blood sugar 151. AST 124 ALT 63 and alk phos 182 09/26/2023 Patient is resting in bed. No complaints of chest pain or shortness of breath. Leg pain is better. Patient has been afebrile. CT of the left lower extremity showed abscess inferior to the amputated femur. A second are potentially communicating abscess with the inferior femoral abscess extending lateral to the subcutaneous tissue and contains air. Patient is being continued on IV antibiotics. ID and vascular surgery is on board. Patient is on vancomycin and ceftriaxone. Laboratory data reviewed. Current medications reviewed. Objective - Vital Signs Vital signs: Vital Signs Temp 98.7 F 09/26/23 13:20 Pulse 64 09/26/23 13:20 Resp 16 09/26/23 13:20 BP 130/59 09/26/23 13:20 Pulse Ox 98 09/26/23 13:20 FiO2 Intake & Output 09/25/23 09/26/23 09/26/23 18:59 06:59 18:59 Intake Total 240 Balance 240 Weight 68.039 kg Intake: Oral 240 Other: Voiding Method Diaper # Voids 2 2 # Bowel Movements 1 - Exam PHYSICAL EXAMINATION: Patient is lying in the bed no acute distress, awake alert and oriented x 2. Unable to communicate due to language barrier... HEENT: Normocephalic. Neck is supple. Pupils reactive. Nostrils clear. Oral cavity is moist. Neck reveals no JVD, carotid bruits, or thyromegaly. CHEST EXAMINATION: Trachea is central. Symmetrical expansion. Lung garland clear to auscultation and percussion. CARDIAC: Normal S1, S2 with no gallops. No murmurs ABDOMEN: Soft. Bowel sounds present. Nontender. No organomegaly. No abdominal bruits. Extremities: Left lower extremity stump site is swollen with minimal discharge in the lower ankle. Surrounding redness. Neurologically awake, alert, oriented x2. Able to move extremities. No gross focal deficits. Underlying cognitive impairment. Skin: No rash or skin lesions. Psychiatric: Coperative. Could not be assessed completely., Musculoskeletal: No joint swelling or deformity. . - Labs CBC & Chem 7: 09/27/23 05:23 09/27/23 05:23 Labs: Abnormal Lab Results - Last 24 Hours (Table) 09/25/23 09/25/23 09/26/23 Range/Units 12:52 16:29 06:24 WBC 14.6 H 11.35 H (3.8-10.6) k/uL RBC 3.07 L 3.32 L (3.80-5.40) m/uL Hgb 9.5 L 9.9 L (11.4-16.0) gm/dL Hct 30.5 L 33.6 L (34.0-46.0) % MCV 101.2 H (80.0-97.0) FL MCHC 29.5 L (32.0-37.0) g/dL RDW 19.1 H 19.8 H (11.5-15.5) % Immature Gran # 0.10 H (0.00-0.04) X 10*3/uL Neutrophils # 10.4 H (1.3-7.7) k/uL Eosinophils # 0.64 H (0.04-0.35) X 10*3/uL BUN (9.0-27.0) mg/dL Creatinine (0.6-1.5) mg/dL Est GFR (CKD-EPI) (>=60) BUN/Creatinine Ratio (12.00-20.00) Ratio Glucose (70-110) mg/dL POC Glucose (mg/dL) 172 H (70-110) mg/dL Calcium (8.7-10.3) mg/dL AST (13-35) U/L ALT (8-44) U/L Alkaline Phosphatase (41-126) U/L Total Protein (6.2-8.2) g/dL Albumin (3.8-4.9) g/dL Albumin/Globulin Ratio (1.60-3.17) Ratio 09/26/23 Range/Units 06:24 WBC (3.8-10.6) k/uL RBC (3.80-5.40) m/uL Hgb (11.4-16.0) gm/dL Hct (34.0-46.0) % MCV (80.0-97.0) FL MCHC (32.0-37.0) g/dL RDW (11.5-15.5) % Immature Gran # (0.00-0.04) X 10*3/uL Neutrophils # (1.3-7.7) k/uL Eosinophils # (0.04-0.35) X 10*3/uL BUN 29.4 H (9.0-27.0) mg/dL Creatinine 3.8 H (0.6-1.5) mg/dL Est GFR (CKD-EPI) 11 L (>=60) BUN/Creatinine Ratio 7.74 L (12.00-20.00) Ratio Glucose 126 H (70-110) mg/dL POC Glucose (mg/dL) (70-110) mg/dL Calcium 8.3 L (8.7-10.3) mg/dL AST 47 H (13-35) U/L ALT 45 H (8-44) U/L Alkaline Phosphatase 155 H (41-126) U/L Total Protein 5.4 L (6.2-8.2) g/dL Albumin 2.4 L (3.8-4.9) g/dL Albumin/Globulin Ratio 0.80 L (1.60-3.17) Ratio Microbiology - Last 24 Hours (Table) 09/25/23 12:52 Gram Stain - Preliminary Leg - Left Assessment and Plan Assessment: Infected left AKA amputation site with abscess. Recent cultures on 09/18/2023 showed Klebsiella pneumonia. History of left AKA on 08/09/2023 due to chronic knee hardware infection/fistula ESRD on hemodialysis Diabetes type 2 Paroxysmal atrial fibrillation Sick sinus syndrome status post permanent pacemaker placement Seizure disorder Dementia Parkinson's disease GERD Hypertension Hyperlipidemia DVT prophylaxis. Patient is already on Eliquis. Plan: Patient will be continued on antibiotics ceftriaxone and vancomycin. Patient was given a dose of vancomycin and Zosyn in the ER. Recent wound cultures growing Klebsiella pneumonia. Vascular surgery is on board. CT lower extremity showed abscess.. Continue with home medications and follow-up renal function. ID and nephrology is on board. Continue to follow closely. Prognosis is guarded. Discussed with the family at bedside in detail. Time with Patient: Greater than 30
[2023-09-27] MEDS ORDERED: VANCOMYCIN 1,250 MG in SODIUM CHLORIDE 0.9% 250 ML IVPB ONE (12:00)
[2023-09-27] MEDS ORDERED: fentaNYL (PF) 50 MCG/ML 2 ML AMP ONE (12:18)
[2023-09-27] MEDS ORDERED: MIDAZOLAM 2 MG/2 ML VIAL ONE (12:18)
[2023-09-27] MEDS ORDERED: KETAMINE HCL IN 0.9 % NACL 50 MG/5 ML SYRINGE ONE (12:18)
[2023-09-27] MEDS ORDERED: PROPOFOL 10 MG/ML 20 ML VIAL IV ONE (12:18)
[2023-09-27 13:35] LABS: Glucose,Whole Blood 158 mg/dL (70-110)
[2023-09-27] MEDS: FOLIC ACID-VIT B COMPLEX-VIT C 1 CAP PO SCH (14:12)
--- NOTE | 2023-09-27 16:46 | P.PN ---
Subjective Progress Note Date: 09/27/23 Patient is a 78-year-old female with a known history of ESRD on hemodialysis, hypertension, diabetes type 2, paroxysmal send fibrillation on anticoagulation, Parkinson's disease, history of left AKA done on 08/09/2023 due to chronically infected left knee hardware was sent to ER from [facility] due to complaints of left AKA stump wound draining purulent discharge. Patient had recent wound cultures done on 09/18/2023 showed Klebsiella pneumonia. Patient was taking oral Bactrim with no improvement and was referred to ER. Otherwise patient does have underlying dementia and also language barrier. Most of the history was taken from her family at bedside. Patient is afebrile. No nausea vomiting or diarrhea. No complaints of chest pain or shortness of breath. No headache or dizziness. EKG showed sinus rhythm. Laboratory showed WBC 14.6, hemoglobin 9.5 and platelets 254. Sodium 131 potassium 4.7 chloride 95, BUN 28 and creatinine 2.82 and blood sugar 151. AST 124 ALT 63 and alk phos 182 09/26/2023 Patient is resting in bed. No complaints of chest pain or shortness of breath. Leg pain is better. Patient has been afebrile. CT of the left lower extremity showed abscess inferior to the amputated femur. A second are potentially communicating abscess with the inferior femoral abscess extending lateral to the subcutaneous tissue and contains air. Patient is being continued on IV antibiotics. ID and vascular surgery is on board. Patient is on vancomycin and ceftriaxone. Laboratory data reviewed. 09/27/2023 Patient is seen in follow-up today asleep although easily arousable. Patient is maintained on antibiotics with infectious disease following along with vascular surgery Review of systems: Unable to completely assess due to language barrier All medications have been reviewed Active Medications Acetaminophen (Acetaminophen Tab 500 Mg Tab) 500 mg PO Q6HR PRN PRN Reason: Fever > 101 And/ Or Pain Hydrocodone Bitart/Acetaminophen (Hydrocodone/Apap 5-325mg 1 Each Tab) 1 each PO QID [facility] Last Admin: 09/27/23 14:12 Dose: 1 each Albuterol/Ipratropium (Ipratropium-Albuterol 3 Ml Neb) 3 ml INHALATION RT-BID PRN PRN Reason: Shortness Of Breath Or Wheezing Allopurinol (Allopurinol 300 Mg Tab) 300 mg PO DAILY [facility] Last Admin: 09/27/23 08:49 Dose: 300 mg Atorvastatin Calcium (Atorvastatin 40 Mg Tab) 40 mg PO HS@1999 [facility] Last Admin: 09/26/23 21:56 Dose: 40 mg Bisacodyl (Bisacodyl 10 Mg Supp) 10 mg RECTAL DAILY PRN PRN Reason: Constipation Carvedilol (Carvedilol 6.25 Mg Tab) 6.25 mg PO BID@0800,1700 [facility] Last Admin: 09/27/23 08:49 Dose: 6.25 mg Clonazepam (Clonazepam 0.5 Mg Tab) 0.5 mg PO HS@1999 [facility] Last Admin: 09/26/23 21:56 Dose: 0.5 mg Ergocalciferol (Ergocalciferol 1,250 Mcg (50,000 Iu) Capsule) 1,250 mcg PO FR@1200 [facility] Gabapentin (Gabapentin 300 Mg Cap) 300 mg PO BID@0800,1700 [facility] Last Admin: 09/27/23 08:49 Dose: 300 mg Ceftriaxone Sodium 2 gm/ (Sodium Chloride) 50 mls @ 100 mls/hr IVPB Q24H [facility]; Protocol Last Admin: 09/27/23 00:04 Dose: 100 mls/hr Lactulose (Lactulose 20 Gm/30 Ml Cup) 20 gm PO DAILY PRN PRN Reason: Constipation Midodrine (Midodrine 5 Mg Tab) 5 mg PO BID PRN PRN Reason: SBP <110 Miscellaneous Information (Vancomycin Iv Per Pharmacy 1 Each Misc) 1 each MISCELLANE DIRECTED PRN PRN Reason: Per Protocol Multivit/Ca Carb/B Cmplx/FA/Prenat (Folic Acid-Vit B Complex-Vit C 1 Cap) 1 each PO DAILY@1200 [facility] Last Admin: 09/27/23 14:12 Dose: 1 each Pantoprazole Sodium (Pantoprazole 40 Mg Tablet) 40 mg PO DAILY@0800 [facility] Last Admin: 09/27/23 08:49 Dose: 40 mg Sertraline HCl (Sertraline 25 Mg Tab) 25 mg PO DAILY [facility] Last Admin: 09/27/23 08:49 Dose: 25 mg Tamsulosin HCl (Tamsulosin 0.4 Mg Cap.Er.24h) 0.4 mg PO DAILY@1700 [facility] Last Admin: 09/26/23 16:56 Dose: Not Given Torsemide (Torsemide 20 Mg Tab) 40 mg PO BID@0800,1700 [facility] Last Admin: 09/27/23 08:48 Dose: 40 mg PHYSICAL EXAMINATION: Patient is lying in the bed no acute distress, awake alert and oriented x 2. Unable to communicate due to language barrier... HEENT: Normocephalic. Neck is supple. Pupils reactive. Nostrils clear. Oral cavity is moist. Neck reveals no JVD, carotid bruits, or thyromegaly. CHEST EXAMINATION: Trachea is central. Symmetrical expansion. Lung garland clear to auscultation and percussion. CARDIAC: Normal S1, S2 with no gallops. No murmurs ABDOMEN: Soft. Bowel sounds present. Nontender. No organomegaly. No abdominal bruits. Extremities: Left lower extremity stump site is swollen with minimal discharge noted. Surrounding redness. Neurologically awake, alert, oriented x2. Able to move extremities. No gross focal deficits. Underlying cognitive impairment. Skin: No rash or skin lesions. Psychiatric: Cooperative. Could not be assessed completely., Musculoskeletal: No joint swelling or deformity. . Assessment: Infected left AKA amputation site with abscess. Recent cultures on 09/18/2023 showed Klebsiella pneumonia. History of left AKA on 08/09/2023 due to chronic knee hardware infection/fistula ESRD on hemodialysis Diabetes type 2 Hypokalemia Paroxysmal atrial fibrillation Sick sinus syndrome status post permanent pacemaker placement Seizure disorder Dementia Parkinson's disease GERD Hypertension Hyperlipidemia DVT prophylaxis. Patient is already on Eliquis. Plan: Patient will be continued on antibiotics in the form of ceftriaxone with infectious disease following Recent wound cultures growing Klebsiella pneumonia. White count is trending down and 10.3 and hemoglobin is stable at 9.4. Sodium slightly low at 133 with a potassium of 3.2 and being replaced per protocol and will follow-up on repeat labs. Vascular surgery following with plans of left lower extremity washout with possible revision and wound VAC placement. Will await surgical report Continue with home medications, currently n.p.o. and will resume diet once c leared by vascular Nephrology following as patient is maintained on hemodialysis Sunday/Sunday/Sunday Due to multiple complex medical issues, prognosis is guarded. The impression and plan of care has been dictated by Kajal Torre, Nurse Practitioner as directed. Dr. Val MD I have performed a history and examination and MDM of this patient, discussed the same with the dictator, and agree with the dictator's assessment and plan as written ,documented as a scribe. Based on total visit time, I have performed more than 50% of the visit. Objective - Vital Signs Vital signs: Vital Signs Temp 97.4 F L 09/27/23 13:06 Pulse 78 09/27/23 13:45 Resp 16 09/27/23 13:45 BP 127/61 09/27/23 13:45 Pulse Ox 97 09/27/23 13:45 FiO2 Intake & Output 09/26/23 09/27/23 09/27/23 18:59 06:59 18:59 Intake Total 240 450 200 Output Total 2000 Balance 240 -1550 200 Intake: IV 200 Intake, IV Titration 50 Amount cefTRIAXone 2 gm In 50 Sodium Chloride 0.9% 50 ml @ 100 mls/hr IVPB Q24H [facility] Rx#:[id number] Oral 240 Hemodialysis 400 Output: Hemodialysis 2000 Other: Voiding Method Diaper Diaper Diaper Incontinent Incontinent # Voids 1 0 # Bowel Movements 1 - Labs CBC & Chem 7: 09/27/23 05:23 09/27/23 05:23 Labs: Abnormal Lab Results - Last 24 Hours (Table) 09/27/23 09/27/23 09/27/23 Range/Units 05:23 05:23 10:24 WBC 10.30 H (4.50-10.00) X 10*3/uL RBC 3.09 L (4.10-5.20) X 10*6/uL Hgb 9.4 L (12.0-15.0) g/dL Hct 30.6 L (37.2-46.3) % MCV 99.0 H (80.0-97.0) FL MCHC 30.7 L (32.0-37.0) g/dL RDW 19.9 H (11.5-14.5) % Immature Gran # 0.07 H (0.00-0.04) X 10*3/uL Eosinophils # 0.53 H (0.04-0.35) X 10*3/uL Sodium 133 L (137-145) mmol/L Potassium 3.2 L (3.5-5.1) mmol/L Creatinine 2.38 H (0.52-1.04) mg/dL Glucose 177 H (74-99) mg/dL POC Glucose (mg/dL) 176 H (70-110) mg/dL Calcium 7.7 L (8.4-10.2) mg/dL 09/27/23 Range/Units 13:32 WBC (4.50-10.00) X 10*3/uL RBC (4.10-5.20) X 10*6/uL Hgb (12.0-15.0) g/dL Hct (37.2-46.3) % MCV (80.0-97.0) FL MCHC (32.0-37.0) g/dL RDW (11.5-14.5) % Immature Gran # (0.00-0.04) X 10*3/uL Eosinophils # (0.04-0.35) X 10*3/uL Sodium (137-145) mmol/L Potassium (3.5-5.1) mmol/L Creatinine (0.52-1.04) mg/dL Glucose (74-99) mg/dL POC Glucose (mg/dL) 158 H (70-110) mg/dL Calcium (8.4-10.2) mg/dL Microbiology - Last 24 Hours (Table) 09/25/23 12:52 Blood Culture - Preliminary Blood 09/25/23 12:52 Blood Culture - Preliminary Blood
[2023-09-27 17:03] LABS: Glucose,Whole Blood 292 mg/dL (70-110)
--- NOTE | 2023-09-27 17:06 | P.OP ---
Date of Procedure: 09/27/23 Description of Procedure: Preoperative diagnosis: Left lower extremity abscess, previous above-knee amputation Postoperative diagnosis: Same Procedure: Incision and drainage left lower extremity abscess Application of wound VAC Surgeon: Alexandrea Akhtar D.O. EBL: Less than 10 mL IV fluids: See records Urine output: See records Drains: Wound VAC Complications: None Condition: Stable Operative indication and findings: Patient is 78-year-old female with previous infected knee joint hardware therefore an above-knee amputation was performed. She has been convalescing well the wound is healed, very recently she began having purulent drainage output from her midportion of her wound therefore she presented back to the hospital. Imaging was performed showing an abscess and collection in the midportion of the leg as well as something laterally therefore she was brought to the operating room for intervention and evaluation. Risks and benefits were discussed with the patient as well as her son. He seemingly understood and were willing to proceed. Procedure in detail: [Patient was brought into the operative suite and placed in supine position. Left lower extremity is prepped and draped in usual sterile fashion. Procedure timeout performed, all parties were in agreement. At the level of the draining sinus, incision was made to enlarge this area with the return of purulent drainage. This was cultured in the deep space. It was copiously irrigated with antibiotic solution. The same was performed in the lateral portion however this appeared more hematoma in nature without any significant purulent drainage. 2 did not seem to connect in the subcutaneous tissue. The total undermining measurements of the mid leg wound were approximately 14 x 6 x 5 cm. On the lateral wound it measured 8 x 6 x 4 cm again both areas were copiously irrigated and a wound VAC was placed with black sponge into each cavity. A bridge dressing type was performed to allow connection of the 2 cavities. There is a more medial area of sinus tracking along the incision which was not opened any further. It was covered with gauze and incorporated into the wound VAC. It was adequate seal. The patient transferred to recovery in stable condition having tolerated the procedure well.
[2023-09-27] MEDS: TAMSULOSIN 0.4 MG CAP.ER.24H PO SCH (17:14)
[2023-09-27 20:25] LABS: Glucose,Whole Blood 386 mg/dL (70-110)
[2023-09-27] MEDS: ATORVASTATIN 40 MG TAB PO SCH (21:18)
[2023-09-27] MEDS: INSULIN ASPART (NovoLOG) 100 UNIT/ML VIAL SQ SCH (21:18)
[2023-09-27] MEDS: clonazePAM 0.5 MG TAB PO SCH (21:18)
--- NOTE | 2023-09-28 01:37 | P.PN ---
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 Patient denies any worsening pain to the left AKA stump. Patient did have a white count of 10.30 creatinine is 2.38 local culture growing gram-negative bacilli blood cultures pending Objective - Vital Signs Vital signs: Vital Signs Temp 98.1 F 09/27/23 19:25 Pulse 91 09/27/23 19:25 Resp 21 09/27/23 19:25 BP 144/82 09/27/23 19:25 Pulse Ox 99 09/27/23 19:25 FiO2 Intake & Output 09/27/23 09/27/23 09/28/23 06:59 18:59 06:59 Intake Total 450 200 Output Total 2000 Balance -1550 200 Intake: IV 200 Intake, IV Titration 50 Amount cefTRIAXone 2 gm In 50 Sodium Chloride 0.9% 50 ml @ 100 mls/hr IVPB Q24H [facility] Rx#:[id number] Hemodialysis 400 Output: Hemodialysis 2000 Other: Voiding Method Diaper Diaper Incontinent Incontinent # Voids 0 1 - Exam Elderly female lying in bed in no distress Respiratory system unlabored breathing decreased breath sound the base Heart S1-S2 regular Abdominal soft no tenderness Left AKA stump wound with some slough tissue and redness minimal drainage on the dressing Exam completed with the help of SPEECH PATHOLOGY TEACHER - Labs CBC & Chem 7: 09/27/23 05:23 09/27/23 05:23 Labs: Abnormal Lab Results - Last 24 Hours (Table) 09/27/23 09/27/23 09/27/23 Range/Units 05:23 05:23 10:24 WBC 10.30 H (4.50-10.00) X 10*3/uL RBC 3.09 L (4.10-5.20) X 10*6/uL Hgb 9.4 L (12.0-15.0) g/dL Hct 30.6 L (37.2-46.3) % MCV 99.0 H (80.0-97.0) FL MCHC 30.7 L (32.0-37.0) g/dL RDW 19.9 H (11.5-14.5) % Immature Gran # 0.07 H (0.00-0.04) X 10*3/uL Eosinophils # 0.53 H (0.04-0.35) X 10*3/uL Sodium 133 L (137-145) mmol/L Potassium 3.2 L (3.5-5.1) mmol/L Creatinine 2.38 H (0.52-1.04) mg/dL Glucose 177 H (74-99) mg/dL POC Glucose (mg/dL) 176 H (70-110) mg/dL Calcium 7.7 L (8.4-10.2) mg/dL 09/27/23 09/27/23 09/27/23 Range/Units 13:32 17:02 20:23 WBC (4.50-10.00) X 10*3/uL RBC (4.10-5.20) X 10*6/uL Hgb (12.0-15.0) g/dL Hct (37.2-46.3) % MCV (80.0-97.0) FL MCHC (32.0-37.0) g/dL RDW (11.5-14.5) % Immature Gran # (0.00-0.04) X 10*3/uL Eosinophils # (0.04-0.35) X 10*3/uL Sodium (137-145) mmol/L Potassium (3.5-5.1) mmol/L Creatinine (0.52-1.04) mg/dL Glucose (74-99) mg/dL POC Glucose (mg/dL) 158 H 292 H 386 H (70-110) mg/dL Calcium (8.4-10.2) mg/dL Microbiology - Last 24 Hours (Table) 09/25/23 12:52 Gram Stain - Preliminary Leg - Left Wound Culture - Preliminary Gram Neg Bacilli 09/25/23 12:52 Blood Culture - Preliminary Blood 09/25/23 12:52 Blood Culture - Preliminary Blood Assessment and Plan (1) Left leg cellulitis Current Visit: Yes Status: Acute Code(s): L03.116 - CELLULITIS OF LEFT LOWER LIMB SNOMED Code(s): 20233227363042239 (2) Surgical wound infection Current Visit: Yes Status: Acute Code(s): T81.49XA - INFECTION FOLLOWING A PROCEDURE, OTHER SURGICAL SITE, INIT SNOMED Code(s): 82984373 Plan: 1patient with recent history of left gvkaz-tqo-kcot amputation now presenting to the hospital with drainage from the left AKA stump site with outpatient culture positive for Klebsiella that was done on 09/18/2023 failing outpatient oral Bactrim DS therapy 2vascular surgery has evaluated the patient and awaiting debridement and hopefully deep culture scheduled for this afternoon 3patient to continue with Rocephin 2 g daily on the basis of loss cultures and sensitivity Dictation was produced using [employer] dictation software. please excuse any grammatical, word or spelling errors. Time with Patient: Less than 30
[2023-09-28 06:05] LABS: Glucose,Whole Blood 248 mg/dL (70-110)
[2023-09-28 06:39] LABS: African American GFR (CKD) 17 (>60 ml/min/1.73 sqM); Anion Gap 8 mmol/L; Blood Urea Nitrogen 26 mg/dL (7-17); Carbon Dioxide 23 mmol/L (22-30); Chloride 102 mmol/L (98-107); Glucose 243 mg/dL (74-99); Magnesium 1.9 mg/dL (1.6-2.3); Non-African American GFR(CKD) 15 (>60 ml/min/1.73 sqM); Potassium 4.1 mmol/L (3.5-5.1); Sodium 133 mmol/L (137-145)
[2023-09-28 06:44] LABS: Vancomycin,Random 28.7 ug/mL
[2023-09-28] MEDS: INSULIN ASPART (NovoLOG) 100 UNIT/ML VIAL SQ SCH ×4 (06:51→20:42)
[2023-09-28] MEDS: allopurinoL 300 MG TAB PO SCH (07:54)
[2023-09-28] MEDS: PANTOPRAZOLE 40 MG TABLET PO SCH (07:54)
[2023-09-28] MEDS: GABAPENTIN 300 MG CAP PO SCH ×2 (07:54→17:43)
[2023-09-28] MEDS: carvediloL 6.25 MG TAB PO SCH ×2 (07:54→17:43)
[2023-09-28] MEDS: HYDROcodone/APAP 5-325MG 1 EACH TAB PO SCH ×4 (07:54→20:41)
[2023-09-28] MEDS: TORSEMIDE 20 MG TAB PO SCH ×2 (07:56→17:43)
[2023-09-28] MEDS: SERTRALINE 25 MG TAB PO SCH (07:56)
[2023-09-28 08:55] LABS: Basophils # (A) 0.01 X 10*3/uL (0.00-0.10); Basophils % (A) 0.1 %; Eosinophils # (A) 0 X 10*3/uL (0.04-0.35); Eosinophils % (A) 0 %; HCT 30.9 % (37.2-46.3); HGB 9.4 g/dL (12.0-15.0); Lymphocytes # (A) 1.72 X 10*3/uL (0.90-5.00); Lymphocytes % (A) 15.8 %; MCH 30.1 pg (27.0-32.0); MCHC 30.4 g/dL (32.0-37.0); Mean Platelet Volume 10.6 FL (9.5-12.2); Monocytes # (A) 0.45 X 10*3/uL (0.20-1.00); Monocytes % (A) 4.1 %; NRBC Per 100 WBC 0 X 10*3/uL (0.00-0.01); Neutrophils # (A) 8.55 X 10*3/uL (1.80-7.70); Neutrophils % (A) 78.8 %; Platelet Count 233 X 10*3/uL (140-440); RBC 3.12 X 10*6/uL (4.10-5.20); RDW 19.4 % (11.5-14.5); WBC 10.86 X 10*3/uL (4.50-10.00)
[2023-09-28 11:21] LABS: Glucose,Whole Blood 150 mg/dL (70-110)
[2023-09-28] MEDS: FOLIC ACID-VIT B COMPLEX-VIT C 1 CAP PO SCH (11:50)
--- NOTE | 2023-09-28 11:57 | P.PN ---
Subjective Progress Note Date: 09/28/23 Principal diagnosis: Infected left amputation site Patient seen and examined today as a follow-up. She was status post incision and drainage left lower extremity abscess with wound VAC application. She denies any pain. She is afebrile. Wound VAC is intact with good suction. Preliminary wound cultures positive for gram-negative bacilli. Objective - Vital Signs Vital signs: Vital Signs Temp 97.5 F L 09/28/23 06:53 Pulse 80 09/28/23 06:53 Resp 16 09/28/23 06:53 BP 181/88 09/28/23 06:53 Pulse Ox 99 09/28/23 06:53 FiO2 Intake & Output 09/27/23 09/28/23 09/28/23 18:59 06:59 18:59 Intake Total 200 450 Balance 200 450 Intake: IV 200 Oral 450 Other: Voiding Method Diaper Diaper Diaper Incontinent Incontinent Incontinent # Voids 1 3 - Exam General appearance: The patient is alert, oriented, obese. Appears in no acute distress. HET: Head is normocephalic and atraumatic. Pupils are equal and reactive. Abdomen: Soft, obese, nondistended. Extremities: Left aqbjx-hyf-xjbv amputation site with wound VAC with good suction. Neurological: No focal deficits. - Labs CBC & Chem 7: 09/28/23 05:22 09/28/23 05:22 Labs: Abnormal Lab Results - Last 24 Hours (Table) 09/27/23 09/27/23 09/27/23 Range/Units 05:23 10:24 13:32 WBC 10.30 H (4.50-10.00) X 10*3/uL RBC 3.09 L (4.10-5.20) X 10*6/uL Hgb 9.4 L (12.0-15.0) g/dL Hct 30.6 L (37.2-46.3) % MCV 99.0 H (80.0-97.0) FL MCHC 30.7 L (32.0-37.0) g/dL RDW 19.9 H (11.5-14.5) % Immature Gran # 0.07 H (0.00-0.04) X 10*3/uL Eosinophils # 0.53 H (0.04-0.35) X 10*3/uL Sodium (137-145) mmol/L BUN (7-17) mg/dL Creatinine (0.52-1.04) mg/dL Glucose (74-99) mg/dL POC Glucose (mg/dL) 176 H 158 H (70-110) mg/dL Calcium (8.4-10.2) mg/dL 09/27/23 09/27/23 09/28/23 Range/Units 17:02 20:23 05:22 WBC (4.50-10.00) X 10*3/uL RBC (4.10-5.20) X 10*6/uL Hgb (12.0-15.0) g/dL Hct (37.2-46.3) % MCV (80.0-97.0) FL MCHC (32.0-37.0) g/dL RDW (11.5-14.5) % Immature Gran # (0.00-0.04) X 10*3/uL Eosinophils # (0.04-0.35) X 10*3/uL Sodium 133 L (137-145) mmol/L BUN 26 H (7-17) mg/dL Creatinine 2.92 H (0.52-1.04) mg/dL Glucose 243 H (74-99) mg/dL POC Glucose (mg/dL) 292 H 386 H (70-110) mg/dL Calcium 8.0 L (8.4-10.2) mg/dL 09/28/23 Range/Units 06:04 WBC (4.50-10.00) X 10*3/uL RBC (4.10-5.20) X 10*6/uL Hgb (12.0-15.0) g/dL Hct (37.2-46.3) % MCV (80.0-97.0) FL MCHC (32.0-37.0) g/dL RDW (11.5-14.5) % Immature Gran # (0.00-0.04) X 10*3/uL Eosinophils # (0.04-0.35) X 10*3/uL Sodium (137-145) mmol/L BUN (7-17) mg/dL Creatinine (0.52-1.04) mg/dL Glucose (74-99) mg/dL POC Glucose (mg/dL) 248 H (70-110) mg/dL Calcium (8.4-10.2) mg/dL Microbiology - Last 24 Hours (Table) 09/25/23 12:52 Blood Culture - Preliminary Blood 09/25/23 12:52 Blood Culture - Preliminary Blood 09/25/23 12:52 Gram Stain - Preliminary Leg - Left Wound Culture - Preliminary Gram Neg Bacilli Assessment and Plan Assessment: 1. Infected left vecuo-ffx-ddoj amputation site status post incision and drainage of abscess and wound VAC application 2. History of left ijrum-gng-ccgg amputation for infected left knee hardware and chronic wound done on 08/09/2023 3. Diabetes mellitus 4. Atrial fibrillation with permanent pacemaker 5. Dementia Plan: 1. Wound cultures obtained, preliminary with gram-negative bacilli 2. Patient is s/p incision and drainage with wound VAC application 3. Change wound VAC dressing Sunday, Sunday, Sunday 4. Patient will need to follow-up with the wound care 5. Antibiotic recommendations per infectious disease Thank you for this consultation. There is no further indication for any vascular surgical intervention. The impression and plan of care has been dictated as directed. Dr. Spencer I performed a history and examination of this patient, discussed the same with the dictator. I agree with the dictator's note ,documented as a scribe. Any ad ditional findings or plans will be noted.
[2023-09-28] MEDS ORDERED: ERGOCALCIFEROL 1,250 MCG (50,000 IU) CAPSULE PO SCH (12:00)
[2023-09-28] MEDS ORDERED: ZINC OXIDE PASTE (Z-GUARD) 1 APPLIC TOPICAL PRN ×2 (14:46→15:00)
[2023-09-28 17:02] LABS: Glucose,Whole Blood 227 mg/dL (70-110)
[2023-09-28] MEDS: TAMSULOSIN 0.4 MG CAP.ER.24H PO SCH (17:42)
--- NOTE | 2023-09-28 19:23 | P.PN ---
Subjective Patient is seen for follow-up for end-stage renal disease. She is currently seen on hemodialysis. Tolerating treatment well. Status post incision and drainage of left lower extremity abscess on 09/27/2023 No significant complaints today. Objective - Vital Signs Vital signs: Vital Signs Temp 98.1 F 09/28/23 12:31 Pulse 68 09/28/23 13:40 Resp 18 09/28/23 13:40 BP 155/74 09/28/23 13:40 Pulse Ox 100 09/28/23 13:40 FiO2 Intake & Output 09/28/23 09/28/23 09/29/23 06:59 18:59 06:59 Intake Total 450 400 Output Total 1999 Balance 450 -1600 Intake: Oral 450 Hemodialysis 400 Output: Hemodialysis 1999 Other: Voiding Method Diaper Diaper Incontinent Incontinent # Voids 3 1 # Bowel Movements 2 - Exam Patient is awake, comfortable, no acute distress Examination of the heart S1 and S2 Examination of the lungs shows decreased breath sounds at the bases Abdomen is soft obese nontender Examination of lower extremity shows left AKA with dressing noted on the stump. Trace edema noted right lower extremity. FIELD RETURN REPAIRER exam grossly intact - Labs CBC & Chem 7: 09/28/23 05:22 09/28/23 05:22 Labs: Abnormal Lab Results - Last 24 Hours (Table) 09/27/23 09/28/23 09/28/23 Range/Units 20:23 05:22 05:22 WBC 10.86 H (4.50-10.00) X 10*3/uL RBC 3.12 L (4.10-5.20) X 10*6/uL Hgb 9.4 L (12.0-15.0) g/dL Hct 30.9 L (37.2-46.3) % MCV 99.0 H (80.0-97.0) FL MCHC 30.4 L (32.0-37.0) g/dL RDW 19.4 H (11.5-14.5) % Immature Gran # 0.13 H (0.00-0.04) X 10*3/uL Neutrophils # 8.55 H (1.80-7.70) X 10*3/uL Eosinophils # 0 L (0.04-0.35) X 10*3/uL Sodium 133 L (137-145) mmol/L BUN 26 H (7-17) mg/dL Creatinine 2.92 H (0.52-1.04) mg/dL Glucose 243 H (74-99) mg/dL POC Glucose (mg/dL) 386 H (70-110) mg/dL Calcium 8.0 L (8.4-10.2) mg/dL 09/28/23 09/28/23 09/28/23 Range/Units 06:04 11:20 17:01 WBC (4.50-10.00) X 10*3/uL RBC (4.10-5.20) X 10*6/uL Hgb (12.0-15.0) g/dL Hct (37.2-46.3) % MCV (80.0-97.0) FL MCHC (32.0-37.0) g/dL RDW (11.5-14.5) % Immature Gran # (0.00-0.04) X 10*3/uL Neutrophils # (1.80-7.70) X 10*3/uL Eosinophils # (0.04-0.35) X 10*3/uL Sodium (137-145) mmol/L BUN (7-17) mg/dL Creatinine (0.52-1.04) mg/dL Glucose (74-99) mg/dL POC Glucose (mg/dL) 248 H 150 H 227 H (70-110) mg/dL Calcium (8.4-10.2) mg/dL Microbiology - Last 24 Hours (Table) 09/25/23 12:52 Gram Stain - Final Leg - Left Wound Culture - Final Klebsiella pneumoniae Enterobacter cloacae 09/25/23 12:52 Blood Culture - Preliminary Blood 09/25/23 12:52 Blood Culture - Preliminary Blood Assessment and Plan Assessment: 1. End-stage renal disease on hemodialysis on a Sunday schedule via right IJ permacath 2. Infected left AKA stump status post I&D on 09/27/2023 3. CKD mineral bone disorder 4. Paroxysmal A-fib Plan: Hemodialysis on Sunday schedule. Continue antibiotics Continue Demadex Add ARANESP.
[2023-09-28] MEDS ORDERED: DARBEPOETIN ALFA 40 MCG/0.4 ML SYRINGE SQ SCH (19:30)
[2023-09-28 20:27] LABS: Glucose,Whole Blood 204 mg/dL (70-110)
[2023-09-28] MEDS: ATORVASTATIN 40 MG TAB PO SCH (20:41)
[2023-09-28] MEDS: clonazePAM 0.5 MG TAB PO SCH (20:42)
[2023-09-28] MEDS ORDERED: CEFEPIME 2 GM in SODIUM CHLORIDE 0.9% 100 ML IVPB STA (22:15)
--- NOTE | 2023-09-28 22:15 | P.PN ---
Subjective Progress Note Date: 09/28/23 Principal diagnosis: Reason for follow-up is left AKA stump wound infection This was a telehealth visit Patient is a 78-year-old female with multiple comorbidity did have chronic infection to the left leg requiring left dzgcl-gao-hdcp amputation now presenting to the hospital with stump infection with outpatient culture positive for Klebsiella Patient is status post I&D of the left AKA abscess and application of a wound VAC on 09/27/2023 On today's evaluation that is 09/28/2023, the patient is afebrile, the patient is breathing comfortably on room air, the patient denies having any shortness of breath chest pain or cough,Patient denies having any abdominal pain no nausea v omiting or any diarrhea, no worsening pain to the left AKA stump Patient white count is 10.86, creatinine is 2.92, cultures pending Objective - Vital Signs Vital signs: Vital Signs Temp 97.5 F L 09/28/23 06:53 Pulse 80 09/28/23 06:53 Resp 16 09/28/23 06:53 BP 181/88 09/28/23 06:53 Pulse Ox 99 09/28/23 06:53 FiO2 Intake & Output 09/27/23 09/28/23 09/28/23 18:59 06:59 18:59 Intake Total 200 450 Balance 200 450 Intake: IV 200 Oral 450 Other: Voiding Method Diaper Diaper Diaper Incontinent Incontinent Incontinent # Voids 1 3 - Exam Elderly female lying in bed in no distress Respiratory system unlabored breathing decreased breath sound the base Heart S1-S2 regular Abdominal soft no tenderness Left AKA stump wound covered with a wound VAC Exam completed with the help of WASTE SPECIALIST - Labs CBC & Chem 7: 09/28/23 05:22 09/28/23 05:22 Labs: Abnormal Lab Results - Last 24 Hours (Table) 09/27/23 09/27/23 09/27/23 Range/Units 05:23 10:24 13:32 WBC 10.30 H (4.50-10.00) X 10*3/uL RBC 3.09 L (4.10-5.20) X 10*6/uL Hgb 9.4 L (12.0-15.0) g/dL Hct 30.6 L (37.2-46.3) % MCV 99.0 H (80.0-97.0) FL MCHC 30.7 L (32.0-37.0) g/dL RDW 19.9 H (11.5-14.5) % Immature Gran # 0.07 H (0.00-0.04) X 10*3/uL Eosinophils # 0.53 H (0.04-0.35) X 10*3/uL Sodium (137-145) mmol/L BUN (7-17) mg/dL Creatinine (0.52-1.04) mg/dL Glucose (74-99) mg/dL POC Glucose (mg/dL) 176 H 158 H (70-110) mg/dL Calcium (8.4-10.2) mg/dL 09/27/23 09/27/23 09/28/23 Range/Units 17:02 20:23 05:22 WBC (4.50-10.00) X 10*3/uL RBC (4.10-5.20) X 10*6/uL Hgb (12.0-15.0) g/dL Hct (37.2-46.3) % MCV (80.0-97.0) FL MCHC (32.0-37.0) g/dL RDW (11.5-14.5) % Immature Gran # (0.00-0.04) X 10*3/uL Eosinophils # (0.04-0.35) X 10*3/uL Sodium 133 L (137-145) mmol/L BUN 26 H (7-17) mg/dL Creatinine 2.92 H (0.52-1.04) mg/dL Glucose 243 H (74-99) mg/dL POC Glucose (mg/dL) 292 H 386 H (70-110) mg/dL Calcium 8.0 L (8.4-10.2) mg/dL 09/28/23 Range/Units 06:04 WBC (4.50-10.00) X 10*3/uL RBC (4.10-5.20) X 10*6/uL Hgb (12.0-15.0) g/dL Hct (37.2-46.3) % MCV (80.0-97.0) FL MCHC (32.0-37.0) g/dL RDW (11.5-14.5) % Immature Gran # (0.00-0.04) X 10*3/uL Eosinophils # (0.04-0.35) X 10*3/uL Sodium (137-145) mmol/L BUN (7-17) mg/dL Creatinine (0.52-1.04) mg/dL Glucose (74-99) mg/dL POC Glucose (mg/dL) 248 H (70-110) mg/dL Calcium (8.4-10.2) mg/dL Microbiology - Last 24 Hours (Table) 09/25/23 12:52 Blood Culture - Preliminary Blood 09/25/23 12:52 Blood Culture - Preliminary Blood 09/25/23 12:52 Gram Stain - Preliminary Leg - Left Wound Culture - Preliminary Gram Neg Bacilli Assessment and Plan (1) Left leg cellulitis Current Visit: Yes Status: Acute Code(s): L03.116 - CELLULITIS OF LEFT LOWER LIMB SNOMED Code(s): 55221009528210903 (2) Surgical wound infection Current Visit: Yes Status: Acute Code(s): T81.49XA - INFECTION FOLLOWING A PROCEDURE, OTHER SURGICAL SITE, INIT SNOMED Code(s): 79700168 Plan: 1patient with recent history of left fnzro-vsw-saud amputation now presenting to the hospital with drainage from the left AKA stump site with outpatient cu lture positive for Klebsiella that was done on 09/18/2023 failing outpatient oral Bactrim DS therapy 2patient is status post debridement of the left AKA stump drainage of the abscess and cultures which are currently pending 3patient to continue with Rocephin 2 g daily while waiting for the culture to finalize and monitor clinical course closely Dictation was produced using [employer] dictation software. please excuse any grammatical, word or spelling errors. Time with Patient: Less than 30
[2023-09-28] MEDS: metroNIDAZOLE 500 MG TAB PO SCH (23:29)
--- NOTE | 2023-09-29 03:24 | P.PN ---
Subjective Progress Note Date: 09/28/23 Patient is a 78-year-old female with a known history of ESRD on hemodialysis, hypertension, diabetes type 2, paroxysmal send fibrillation on anticoagulation, Parkinson's disease, history of left AKA done on 08/09/2023 due to chronically infected left knee hardware was sent to ER from [facility] due to complaints of left AKA stump wound draining purulent discharge. Patient had recent wound cultures done on 09/18/2023 showed Klebsiella pneumonia. Patient was taking oral Bactrim with no improvement and was referred to ER. Otherwise patient does have underlying dementia and also language barrier. Most of the history was taken from her family at bedside. Patient is afebrile. No nausea vomiting or diarrhea. No complaints of chest pain or shortness of breath. No headache or dizziness. EKG showed sinus rhythm. Laboratory showed WBC 14.6, hemoglobin 9.5 and platelets 254. Sodium 131 potassium 4.7 chloride 95, BUN 28 and creatinine 2.82 and blood sugar 151. AST 124 ALT 63 and alk phos 182 09/26/2023 Patient is resting in bed. No complaints of chest pain or shortness of breath. Leg pain is better. Patient has been afebrile. CT of the left lower extremity showed abscess inferior to the amputated femur. A second are potentially communicating abscess with the inferior femoral abscess extending lateral to the subcutaneous tissue and contains air. Patient is being continued on IV antibiotics. ID and vascular surgery is on board. Patient is on vancomycin and ceftriaxone. Laboratory data reviewed. 09/27/2023 Patient is seen in follow-up today asleep although easily arousable. Patient is maintained on antibiotics with infectious disease following along with vascular surgery and plans on debridement with deep tissue cultures and wound VAC application of the left stump. Patient continued on antibiotics with infectious disease following and will await finalized cultures to determine discharge antibiotics. Patient is afebrile with no reported chest pain or shortness of breath. Patient is tolerating diet and denies any nausea or vomiting. Patient is continued on hemodialysis with nephrology following. 09/28/2023. Patient is status post debridement of the left stump with wound VAC placement and cultures have been obtained. Preliminary culture showing gram-negative and will continue current regimen with infectious disease following while awaiting finalized cultures to determine discharge antibiotics. Patient to continue with hemodialysis with nephrology following. Patient is afebrile with no reported chest pains or shortness of breath. Patient will be going to ECF on discharge. Review of systems: Unable to completely assess due to language barrier All medications have been reviewed Active Medications PHYSICAL EXAMINATION: Patient is lying in the bed no acute distress, awake alert and oriented x 2. Unable to communicate due to language barrier... HEENT: Normocephalic. Neck is supple. Pupils reactive. Nostrils clear. Oral cavi ty is moist. Neck reveals no JVD, carotid bruits, or thyromegaly. CHEST EXAMINATION: Trachea is central. Symmetrical expansion. Lung garland clear to auscultation and percussion. CARDIAC: Normal S1, S2 with no gallops. No murmurs ABDOMEN: Soft. Bowel sounds present. Nontender. No organomegaly. No abdominal bruits. Extremities: Left lower extremity stump site is less swollen with wound VAC no alma with serous drainage Neurologically awake, alert, oriented x2. Able to move extremities. No gross focal deficits. Underlying cognitive impairment. Skin: No rash or skin lesions. Psychiatric: Cooperative. Could not be assessed completely due to language barrier., Musculoskeletal: No joint swelling or deformity. . Assessment: Infected left AKA amputation site with abscess. Recent cultures on 09/18/2023 showed Klebsiella pneumonia. History of left AKA on 08/09/2023 due to chronic knee hardware infection/fistula Status post debridement with wound VAC placement of the left AKA stump, pre liminary culture showing gram-negative bacilli ESRD on hemodialysis Diabetes type 2 Hypokalemia, improved Paroxysmal atrial fibrillation Sick sinus syndrome status post permanent pacemaker placement Seizure disorder Dementia Parkinson's disease GERD Hypertension Hyperlipidemia DVT prophylaxis. Patient is already on Eliquis. Plan: Patient will be continued on antibiotics in the form of ceftriaxone with infectious disease following. Patient is status post debridement with wound VAC placement with vascular surgery and deep tissue cultures pending at this time. Will await finalized cultures to determine discharge antibiotics Follow-up on repeat labs in the a.m. Continue with home medications Nephrology following as patient is maintained on hemodialysis Sunday/Sunday/Sunday Patient will be returning to ECF once stabilized and will discuss further with case management once cleared by consultations and finalized cultures to determine discharge planning Due to multiple complex medical issues, prognosis is guarded. The impression and plan of care has been dictated by Kajal Torre, Nurse Practitioner as directed. Dr. Val MD I have performed a history and examination and MDM of this patient, discussed the same with the dictator, and agree with the dictator's assessment and plan as written ,documented as a scribe. Based on total visit time, I have performed more than 50% of the visit. Objective - Vital Signs Vital signs: Vital Signs Temp 98 F 09/29/23 01:43 Pulse 64 09/29/23 01:43 Resp 17 09/29/23 01:43 BP 166/75 09/29/23 01:43 Pulse Ox 100 09/29/23 01:43 FiO2 Intake & Output 09/28/23 09/28/23 09/29/23 06:59 18:59 06:59 Intake Total 450 400 Output Total 2000 Balance 450 -1600 Intake: Oral 450 Hemodialysis 400 Output: Hemodialysis 1999 Other: Voiding Method Diaper Diaper Diaper Incontinent Incontinent Incontinent # Voids 3 1 # Bowel Movements 2 - Labs CBC & Chem 7: 09/28/23 05:22 09/28/23 05:22 Labs: Abnormal Lab Results - Last 24 Hours (Table) 09/28/23 09/28/23 09/28/23 Range/Units 05:22 05:22 06:04 WBC 10.86 H (4.50-10.00) X 10*3/uL RBC 3.12 L (4.10-5.20) X 10*6/uL Hgb 9.4 L (12.0-15.0) g/dL Hct 30.9 L (37.2-46.3) % MCV 99.0 H (80.0-97.0) FL MCHC 30.4 L (32.0-37.0) g/dL RDW 19.4 H (11.5-14.5) % Immature Gran # 0.13 H (0.00-0.04) X 10*3/uL Neutrophils # 8.55 H (1.80-7.70) X 10*3/uL Eosinophils # 0 L (0.04-0.35) X 10*3/uL Sodium 133 L (137-145) mmol/L BUN 26 H (7-17) mg/dL Creatinine 2.92 H (0.52-1.04) mg/dL Glucose 243 H (74-99) mg/dL POC Glucose (mg/dL) 248 H (70-110) mg/dL Calcium 8.0 L (8.4-10.2) mg/dL 09/28/23 09/28/23 09/28/23 Range/Units 11:20 17:01 20:21 WBC (4.50-10.00) X 10*3/uL RBC (4.10-5.20) X 10*6/uL Hgb (12.0-15.0) g/dL Hct (37.2-46.3) % MCV (80.0-97.0) FL MCHC (32.0-37.0) g/dL RDW (11.5-14.5) % Immature Gran # (0.00-0.04) X 10*3/uL Neutrophils # (1.80-7.70) X 10*3/uL Eosinophils # (0.04-0.35) X 10*3/uL Sodium (137-145) mmol/L BUN (7-17) mg/dL Creatinine (0.52-1.04) mg/dL Glucose (74-99) mg/dL POC Glucose (mg/dL) 150 H 227 H 204 H (70-110) mg/dL Calcium (8.4-10.2) mg/dL Microbiology - Last 24 Hours (Table) 09/27/23 12:50 Gram Stain - Preliminary Leg - Left 09/25/23 12:52 Blood Culture - Preliminary Blood 09/25/23 12:52 Blood Culture - Preliminary Blood 09/25/23 12:52 Anaerobic Culture - Final Leg - Left Anaerobic Gm Negative Bacilli 09/25/23 12:52 Gram Stain - Final Leg - Left Wound Culture - Final Klebsiella pneumoniae Enterobacter cloacae
[2023-09-29 07:03] LABS: Glucose,Whole Blood 144 mg/dL (70-110)
[2023-09-29] MEDS: INSULIN ASPART (NovoLOG) 100 UNIT/ML VIAL SQ SCH ×4 (07:32→21:36)
[2023-09-29] MEDS: metroNIDAZOLE 500 MG TAB PO SCH ×3 (08:43→21:36)
[2023-09-29] MEDS: PANTOPRAZOLE 40 MG TABLET PO SCH (08:43)
[2023-09-29] MEDS: SERTRALINE 25 MG TAB PO SCH (08:43)
[2023-09-29] MEDS: carvediloL 6.25 MG TAB PO SCH ×2 (08:43→16:36)
[2023-09-29] MEDS: allopurinoL 300 MG TAB PO SCH (08:43)
[2023-09-29] MEDS: TORSEMIDE 20 MG TAB PO SCH ×2 (08:43→16:36)
[2023-09-29] MEDS: GABAPENTIN 300 MG CAP PO SCH ×2 (08:43→16:36)
[2023-09-29] MEDS: HYDROcodone/APAP 5-325MG 1 EACH TAB PO SCH ×4 (08:44→21:37)
[2023-09-29 08:56] LABS: Anisocytosis Slight; Basophils % (A) 0 %; Eosinophils # (A) 0.3 k/uL (0-0.7); Eosinophils % (A) 3 %; HCT 31.8 % (34.0-46.0); HGB 10.1 gm/dL (11.4-16.0); Hypochromasia Marked; Lymphocytes % (A) 21 %; MCH 31.8 pg (25.0-35.0); MCHC 31.8 g/dL (31.0-37.0); Macrocytosis Moderate; Mean Platelet Volume 8.1; Monocytes # (A) 0.5 k/uL (0-1.0); Monocytes % (A) 5 %; Neutrophils # (A) 6.8 k/uL (1.3-7.7); Neutrophils % (A) 70 %; Platelet Count 231 k/uL (150-450); RBC 3.18 m/uL (3.80-5.40); RDW 19.2 % (11.5-15.5); WBC 9.7 k/uL (3.8-10.6)
[2023-09-29 08:57] LABS: African American GFR (CKD) 28 (>60 ml/min/1.73 sqM); Anion Gap 2 mmol/L; Blood Urea Nitrogen 19 mg/dL (7-17); C Reactive Protein 3.6 mg/dL (<1.0); Calcium 7.7 mg/dL (8.4-10.2); Carbon Dioxide 26 mmol/L (22-30); Chloride 103 mmol/L (98-107); Glucose 147 mg/dL (74-99); Non-African American GFR(CKD) 24 (>60 ml/min/1.73 sqM); Potassium 3.1 mmol/L (3.5-5.1); Sodium 131 mmol/L (137-145)
[2023-09-29 09:00] LABS: Vancomycin,Random 21.1 ug/mL
[2023-09-29] MEDS: CEFEPIME 1 GM in SODIUM CHLORIDE 0.9% 50 ML IVPB SCH ×2 (10:24→23:25)
[2023-09-29 11:06] LABS: Glucose,Whole Blood 161 mg/dL (70-110)
[2023-09-29] MEDS: FOLIC ACID-VIT B COMPLEX-VIT C 1 CAP PO SCH (11:15)
--- NOTE | 2023-09-29 11:33 | P.PN ---
Subjective Patient is seen for follow-up for end-stage renal disease. Tolerated hemodialysis well yesterday with UF of 2 L. Status post incision and drainage of left lower extremity abscess on 09/27/2023 No significant complaints today. Objective - Vital Signs Vital signs: Vital Signs Temp 99.0 F 09/29/23 07:15 Pulse 64 09/29/23 08:44 Resp 20 09/29/23 08:44 BP 140/72 09/29/23 07:15 Pulse Ox 100 09/29/23 07:15 FiO2 Intake & Output 09/28/23 09/29/23 09/29/23 18:59 06:59 18:59 Intake Total 400 Output Total 1999 Balance -1600 Intake: Hemodialysis 400 Output: Hemodialysis 1999 Other: Voiding Method Diaper Diaper Diaper Incontinent Incontinent Incontinent # Voids 1 1 # Bowel Movements 2 0 - Exam Patient is awake, comfortable, no acute distress Examination of the heart S1 and S2 Examination of the lungs shows decreased breath sounds at the bases Abdomen is soft obese nontender Examination of lower extremity shows left AKA with dressing noted on the stump. Trace edema noted right lower extremity. CORE RESCUER exam grossly intact - Labs CBC & Chem 7: 09/29/23 08:22 09/29/23 08:22 Labs: Abnormal Lab Results - Last 24 Hours (Table) 09/28/23 09/28/23 09/29/23 Range/Units 17:01 20:21 07:01 RBC (3.80-5.40) m/uL Hgb (11.4-16.0) gm/dL Hct (34.0-46.0) % RDW (11.5-15.5) % Sodium (137-145) mmol/L Potassium (3.5-5.1) mmol/L BUN (7-17) mg/dL Creatinine (0.52-1.04) mg/dL Glucose (74-99) mg/dL POC Glucose (mg/dL) 227 H 204 H 144 H (70-110) mg/dL Calcium (8.4-10.2) mg/dL C-Reactive Protein (<1.0) mg/dL 09/29/23 09/29/23 09/29/23 Range/Units 08:22 08:22 11:05 RBC 3.18 L (3.80-5.40) m/uL Hgb 10.1 L (11.4-16.0) gm/dL Hct 31.8 L (34.0-46.0) % RDW 19.2 H (11.5-15.5) % Sodium 131 L (137-145) mmol/L Potassium 3.1 L (3.5-5.1) mmol/L BUN 19 H (7-17) mg/dL Creatinine 1.91 H (0.52-1.04) mg/dL Glucose 147 H (74-99) mg/dL POC Glucose (mg/dL) 161 H (70-110) mg/dL Calcium 7.7 L (8.4-10.2) mg/dL C-Reactive Protein 3.6 H (<1.0) mg/dL Microbiology - Last 24 Hours (Table) 09/27/23 12:50 Gram Stain - Preliminary Leg - Left 09/25/23 12:52 Blood Culture - Preliminary Blood 09/25/23 12:52 Blood Culture - Preliminary Blood 09/25/23 12:52 Anaerobic Culture - Final Leg - Left Anaerobic Gm Negative Bacilli 09/25/23 12:52 Gram Stain - Final Leg - Left Wound Culture - Final Klebsiella pneumoniae Enterobacter cloacae Assessment and Plan Assessment: 1. End-stage renal disease on hemodialysis on a Sunday schedule via right IJ permacath 2. Infected left AKA stump status post I&D on 09/27/2023 3. CKD mineral bone disorder 4. Paroxysmal A-fib Plan: Hemodialysis on Sunday schedule. Continue antibiotics Continue Demadex Continue ARANESP.
[2023-09-29 14:15] LABS: Erythrocyte Sedimentation Rate 75 mm/Hr (0-30)
[2023-09-29 16:12] LABS: Glucose,Whole Blood 164 mg/dL (70-110)
[2023-09-29] MEDS: TAMSULOSIN 0.4 MG CAP.ER.24H PO SCH (16:36)
[2023-09-29 20:41] LABS: Glucose,Whole Blood 187 mg/dL (70-110)
[2023-09-29] MEDS ORDERED: Potassium Replacement Protocol 1 EACH MISC MISCELLANE PRN (20:46)
--- NOTE | 2023-09-29 21:00 | P.PN ---
Subjective Progress Note Date: 09/29/23 Patient is a 78-year-old female with a known history of ESRD on hemodialysis, hypertension, diabetes type 2, paroxysmal send fibrillation on anticoagulation, Parkinson's disease, history of left AKA done on 08/09/2023 due to chronically infected left knee hardware was sent to ER from [facility] due to complaints of left AKA stump wound draining purulent discharge. Patient had recent wound cultures done on 09/18/2023 showed Klebsiella pneumonia. Patient was taking oral Bactrim with no improvement and was referred to ER. Otherwise patient does have underlying dementia and also language barrier. Most of the history was taken from her family at bedside. Patient is afebrile. No nausea vomiting or diarrhea. No complaints of chest pain or shortness of breath. No headache or dizziness. EKG showed sinus rhythm. Laboratory showed WBC 14.6, hemoglobin 9.5 and platelets 254. Sodium 131 potassium 4.7 chloride 95, BUN 28 and creatinine 2.82 and blood sugar 151. AST 124 ALT 63 and alk phos 182 09/26/2023 Patient is resting in bed. No complaints of chest pain or shortness of breath. Leg pain is better. Patient has been afebrile. CT of the left lower extremity showed abscess inferior to the amputated femur. A second are potentially communicating abscess with the inferior femoral abscess extending lateral to the subcutaneous tissue and contains air. Patient is being continued on IV antibiotics. ID and vascular surgery is on board. Patient is on vancomycin and ceftriaxone. Laboratory data reviewed. 09/27/2023 Patient is seen in follow-up today asleep although easily arousable. Patient is maintained on antibiotics with infectious disease following along with vascular surgery and plans on debridement with deep tissue cultures and wound VAC application of the left stump. Patient continued on antibiotics with infectious disease following and will await finalized cultures to determine discharge antibiotics. Patient is afebrile with no reported chest pain or shortness of breath. Patient is tolerating diet and denies any nausea or vomiting. Patient is continued on hemodialysis with nephrology following. 09/28/2023. Patient is status post debridement of the left stump with wound VAC placement and cultures have been obtained. Preliminary culture showing gram-negative and will continue current regimen with infectious disease following while awaiting finalized cultures to determine discharge antibiotics. Patient to continue with hemodialysis with nephrology following. Patient is afebrile with no reported chest pains or shortness of breath. Patient will be going to ECF on discharge. 09/29/2023 The patient is seen in follow-up today currently sleeping although easily kitty usable. Preliminary cultures from the debridement with wound VAC placement by vascular surgery preliminary showing gram-negative bacilli. Infectious disease following and maintained on antibiotics and will await finalized cultures to determine discharge antibiotics. Patient is currently afebrile maintained on hemodialysis with nephrology following. Case management following and arranging for wound VAC on discharge and [facility] Review of systems: Unable to completely assess due to language barrier All medications have been reviewed Active Medications PHYSICAL EXAMINATION: Patient is lying in the bed no acute distress, asleep although arousable, alert and oriented x 2. Unable to communicate due to language barrier... HEENT: Normocephalic. Neck is supple. Pupils reactive. Nostrils clear. Oral cavity is moist. Neck reveals no JVD, carotid bruits, or thyromegaly. CHEST EXAMINATION: Trachea is central. Symmetrical expansion. Lung garland clear to auscultation and percussion. CARDIAC: Normal S1, S2 with no gallops. No murmurs ABDOMEN: Soft. Bowel sounds present. Nontender. No organomegaly. No abdominal bruits. Extremities: Left lower extremity stump site is less swollen with wound VAC noted with serous drainage Neurologically awake, alert, oriented x2. Able to move extremities. No gross focal deficits. Underlying cognitive impairment. Skin: No rash or skin lesions. Psychiatric: Cooperative. Could not be assessed completely due to language barrier., Musculoskeletal: No joint swelling or deformity. . Assessment: Infected left AKA amputation site with abscess. Recent cultures on 09/18/2023 showed Klebsiella pneumonia. History of left AKA on 08/09/2023 due to chronic knee hardware infection/fistula Status post debridement with wound VAC placement of the left AKA stump, prelim inary culture showing gram-negative bacilli ESRD on hemodialysis Diabetes type 2 Hypokalemia, improved Paroxysmal atrial fibrillation Sick sinus syndrome status post permanent pacemaker placement Seizure disorder Dementia Parkinson's disease GERD Hypertension Hyperlipidemia DVT prophylaxis. Patient is already on Eliquis. Plan: Patient will be continued on antibiotics with infectious disease following. Adjustments to medications being made as cultures from the debridement and wound VAC placement with vascular surgery showing gram-negative bacilli. Will await finalized cultures to determine discharge antibiotics Follow-up on repeat labs in the a.m. Continue with home medications Nephrology following as patient is maintained on hemodialysis Sunday/Sunday/Sunday Patient will be returning to [facility] where she resides once stabilized and will discuss further with case management once cleared by consultations and finalized cultures to determine discharge planning Due to multiple complex medical issues, prognosis is guarded. The impression and plan of care has been dictated by Kajal Torre, Nurse Practitioner as directed. Dr. Val MD I have performed a history and examination and MDM of this patient, discussed the same with the dictator, and agree with the dictator's assessment and plan as written ,documented as a scribe. Based on total visit time, I have performed more than 50% of the visit. Objective - Vital Signs Vital signs: Vital Signs Temp 97.5 F L 09/29/23 19:58 Pulse 71 09/29/23 19:58 Resp 18 09/29/23 19:58 BP 120/69 09/29/23 19:58 Pulse Ox 100 09/29/23 19:58 FiO2 Intake & Output 09/29/23 09/29/23 09/30/23 06:59 18:59 06:59 Other: Voiding Method Diaper Diaper Diaper Incontinent Incontinent Incontinent # Voids 1 4 # Bowel Movements 0 2 - Labs CBC & Chem 7: 09/29/23 08:22 09/29/23 08:22 Labs: Abnormal Lab Results - Last 24 Hours (Table) 09/29/23 09/29/23 09/29/23 Range/Units 07:01 08:22 08:22 RBC 3.18 L (3.80-5.40) m/uL Hgb 10.1 L (11.4-16.0) gm/dL Hct 31.8 L (34.0-46.0) % RDW 19.2 H (11.5-15.5) % ESR 75 H (0-30) mm/Hr Sodium 131 L (137-145) mmol/L Potassium 3.1 L (3.5-5.1) mmol/L BUN 19 H (7-17) mg/dL Creatinine 1.91 H (0.52-1.04) mg/dL Glucose 147 H (74-99) mg/dL POC Glucose (mg/dL) 144 H (70-110) mg/dL Calcium 7.7 L (8.4-10.2) mg/dL C-Reactive Protein 3.6 H (<1.0) mg/dL 09/29/23 09/29/23 09/29/23 Range/Units 11:05 16:11 20:39 RBC (3.80-5.40) m/uL Hgb (11.4-16.0) gm/dL Hct (34.0-46.0) % RDW (11.5-15.5) % ESR (0-30) mm/Hr Sodium (137-145) mmol/L Potassium (3.5-5.1) mmol/L BUN (7-17) mg/dL Creatinine (0.52-1.04) mg/dL Glucose (74-99) mg/dL POC Glucose (mg/dL) 161 H 164 H 187 H (70-110) mg/dL Calcium (8.4-10.2) mg/dL C-Reactive Protein (<1.0) mg/dL Microbiology - Last 24 Hours (Table) 09/27/23 12:50 Gram Stain - Preliminary Leg - Left Wound Culture - Preliminary Gram Neg Bacilli 09/25/23 12:52 Blood Culture - Preliminary Blood 09/25/23 12:52 Blood Culture - Preliminary Blood 09/25/23 12:52 Anaerobic Culture - Final Leg - Left Anaerobic Gm Negative Bacilli 09/25/23 12:52 Gram Stain - Final Leg - Left Wound Culture - Final Klebsiella pneumoniae Enterobacter cloacae
[2023-09-29] MEDS: POTASSIUM CHLORIDE ER 20 MEQ TAB.ER PO SCH ×3 (21:36→23:25)
[2023-09-29] MEDS: clonazePAM 0.5 MG TAB PO SCH (21:36)
[2023-09-29] MEDS: ATORVASTATIN 40 MG TAB PO SCH (21:36)
[2023-09-30 06:20] LABS: Glucose,Whole Blood 176 mg/dL (70-110)
[2023-09-30] MEDS: INSULIN ASPART (NovoLOG) 100 UNIT/ML VIAL SQ SCH ×4 (06:44→20:17)
[2023-09-30] MEDS: carvediloL 6.25 MG TAB PO SCH ×2 (08:06→16:41)
[2023-09-30] MEDS: PANTOPRAZOLE 40 MG TABLET PO SCH (08:06)
[2023-09-30] MEDS: metroNIDAZOLE 500 MG TAB PO SCH ×3 (08:06→21:52)
[2023-09-30] MEDS: HYDROcodone/APAP 5-325MG 1 EACH TAB PO SCH ×4 (08:06→21:52)
[2023-09-30] MEDS: GABAPENTIN 300 MG CAP PO SCH ×2 (08:06→16:41)
[2023-09-30] MEDS: allopurinoL 300 MG TAB PO SCH (08:06)
[2023-09-30] MEDS: SERTRALINE 25 MG TAB PO SCH (08:07)
[2023-09-30] MEDS: TORSEMIDE 20 MG TAB PO SCH ×2 (08:07→16:41)
[2023-09-30] MEDS: CEFEPIME 1 GM in SODIUM CHLORIDE 0.9% 50 ML IVPB SCH (10:10)
[2023-09-30 10:36] LABS: African American GFR (CKD) 20 (>60 ml/min/1.73 sqM); Anion Gap 7 mmol/L; Blood Urea Nitrogen 33 mg/dL (7-17); Calcium 7.9 mg/dL (8.4-10.2); Carbon Dioxide 22 mmol/L (22-30); Chloride 105 mmol/L (98-107); Glucose 147 mg/dL (74-99); Non-African American GFR(CKD) 17 (>60 ml/min/1.73 sqM); Potassium 4.2 mmol/L (3.5-5.1); Sodium 134 mmol/L (137-145)
[2023-09-30 10:45] LABS: Anisocytosis Slight; Basophils % (A) 0 %; Eosinophils # (A) 0.3 k/uL (0-0.7); Eosinophils % (A) 3 %; HCT 33.1 % (34.0-46.0); HGB 10.3 gm/dL (11.4-16.0); Hypochromasia Marked; Lymphocytes % (A) 20 %; MCH 31.7 pg (25.0-35.0); MCHC 31.1 g/dL (31.0-37.0); MCV 102.1 fL (80.0-100.0); Macrocytosis Moderate; Mean Platelet Volume 7.5; Monocytes # (A) 0.6 k/uL (0-1.0); Monocytes % (A) 6 %; Neutrophils # (A) 6.7 k/uL (1.3-7.7); Neutrophils % (A) 69 %; Platelet Count 219 k/uL (150-450); RBC 3.24 m/uL (3.80-5.40); RDW 19.4 % (11.5-15.5); WBC 9.8 k/uL (3.8-10.6)
--- NOTE | 2023-09-30 11:16 | P.PN ---
Subjective Patient is seen for follow-up for end-stage renal disease. Maintained on Sunday schedule. Status post incision and drainage of left lower extremity abscess on 09/27/2023 No significant complaints today. Objective - Vital Signs Vital signs: Vital Signs Temp 98.4 F 09/30/23 07:26 Pulse 82 09/30/23 08:07 Resp 17 09/30/23 08:07 BP 173/63 09/30/23 07:26 Pulse Ox 98 09/30/23 07:26 FiO2 Intake & Output 09/29/23 09/30/23 09/30/23 18:59 06:59 18:59 Other: Voiding Method Diaper Diaper Diaper Incontinent Incontinent Incontinent # Voids 4 # Bowel Movements 2 - Exam Patient is awake, comfortable, no acute distress Examination of the heart S1 and S2 Examination of the lungs shows decreased breath sounds at the bases Abdomen is soft obese nontender Examination of lower extremity shows left AKA with dressing noted on the stump. Trace edema noted right lower extremity. SASH ASSEMBLER exam grossly intact - Labs CBC & Chem 7: 09/30/23 09:31 09/30/23 09:31 Labs: Abnormal Lab Results - Last 24 Hours (Table) 09/29/23 09/29/23 09/29/23 Range/Units 08:22 16:11 20:39 RBC (3.80-5.40) m/uL Hgb (11.4-16.0) gm/dL Hct (34.0-46.0) % MCV (80.0-100.0) fL RDW (11.5-15.5) % ESR 75 H (0-30) mm/Hr Sodium (137-145) mmol/L BUN (7-17) mg/dL Creatinine (0.52-1.04) mg/dL Glucose (74-99) mg/dL POC Glucose (mg/dL) 164 H 187 H (70-110) mg/dL Calcium (8.4-10.2) mg/dL 09/30/23 09/30/23 09/30/23 Range/Units 06:18 09:31 09:31 RBC 3.24 L (3.80-5.40) m/uL Hgb 10.3 L (11.4-16.0) gm/dL Hct 33.1 L (34.0-46.0) % MCV 102.1 H (80.0-100.0) fL RDW 19.4 H (11.5-15.5) % ESR (0-30) mm/Hr Sodium 134 L (137-145) mmol/L BUN 33 H (7-17) mg/dL Creatinine 2.56 H (0.52-1.04) mg/dL Glucose 147 H (74-99) mg/dL POC Glucose (mg/dL) 176 H (70-110) mg/dL Calcium 7.9 L (8.4-10.2) mg/dL Microbiology - Last 24 Hours (Table) 09/27/23 12:50 Gram Stain - Preliminary Leg - Left Wound Culture - Preliminary Gram Neg Bacilli Assessment and Plan Assessment: 1. End-stage renal disease on hemodialysis on a Sunday schedule via right IJ permacath 2. Infected left AKA stump status post I&D on 09/27/2023 3. CKD mineral bone disorder 4. Paroxysmal A-fib Plan: Hemodialysis on Sunday schedule. Continue antibiotics Continue Demadex Continue ARANESP.
[2023-09-30 11:20] LABS: Glucose,Whole Blood 147 mg/dL (70-110)
[2023-09-30] MEDS: FOLIC ACID-VIT B COMPLEX-VIT C 1 CAP PO SCH (12:25)
--- NOTE | 2023-09-30 14:30 | P.PN ---
Subjective Progress Note Date: 09/30/23 Principal diagnosis: left AKA wound patient seen and examined. No overnight issues. Objective - Vital Signs Vital signs: Vital Signs Temp 97.6 F 09/30/23 13:48 Pulse 73 09/30/23 13:48 Resp 18 09/30/23 13:48 BP 114/65 09/30/23 13:48 Pulse Ox 95 09/30/23 13:48 FiO2 Intake & Output 09/29/23 09/30/23 09/30/23 18:59 06:59 18:59 Other: Voiding Method Diaper Diaper Diaper Incontinent Incontinent Incontinent # Voids 4 # Bowel Movements 2 - Exam General appearance: The patient is alert, oriented, obese. Appears in no acute distress. HET: Head is normocephalic and atraumatic. Pupils are equal and reactive. Abdomen: Soft, obese, nondistended. Extremities: Left [id number] amputation site with wound VAC with good suction. Neurological: No focal deficits. - Labs CBC & Chem 7: 09/30/23 09:31 09/30/23 09:31 Labs: Abnormal Lab Results - Last 24 Hours (Table) 09/29/23 09/29/23 09/30/23 Range/Units 16:11 20:39 06:18 RBC (3.80-5.40) m/uL Hgb (11.4-16.0) gm/dL Hct (34.0-46.0) % MCV (80.0-100.0) fL RDW (11.5-15.5) % Sodium (137-145) mmol/L BUN (7-17) mg/dL Creatinine (0.52-1.04) mg/dL Glucose (74-99) mg/dL POC Glucose (mg/dL) 164 H 187 H 176 H (70-110) mg/dL Calcium (8.4-10.2) mg/dL 09/30/23 09/30/23 09/30/23 Range/Units 09:31 09:31 11:18 RBC 3.24 L (3.80-5.40) m/uL Hgb 10.3 L (11.4-16.0) gm/dL Hct 33.1 L (34.0-46.0) % MCV 102.1 H (80.0-100.0) fL RDW 19.4 H (11.5-15.5) % Sodium 134 L (137-145) mmol/L BUN 33 H (7-17) mg/dL Creatinine 2.56 H (0.52-1.04) mg/dL Glucose 147 H (74-99) mg/dL POC Glucose (mg/dL) 147 H (70-110) mg/dL Calcium 7.9 L (8.4-10.2) mg/dL Microbiology - Last 24 Hours (Table) 09/27/23 12:50 Gram Stain - Final Leg - Left Wound Culture - Final Klebsiella pneumoniae Enterobacter cloacae Assessment and Plan Assessment: 1. Infected left [id number] amputation site status post incision and drainage of abscess and wound VAC application 2. History of left [id number] amputation for infected left knee hardware and chronic wound done on 08/09/2023 3. Diabetes mellitus 4. Atrial fibrillation with permanent pacemaker 5. Dementia Plan: 1. Change wound VAC dressing Sunday, Sunday, Sunday 2. Patient will need to follow-up with the wound care 3. Antibiotic per ID
[2023-09-30 16:15] LABS: Glucose,Whole Blood 150 mg/dL (70-110)
[2023-09-30] MEDS: TAMSULOSIN 0.4 MG CAP.ER.24H PO SCH (16:41)
[2023-09-30 19:45] LABS: Glucose,Whole Blood 182 mg/dL (70-110)
[2023-09-30] MEDS: ATORVASTATIN 40 MG TAB PO SCH (20:17)
[2023-09-30] MEDS: clonazePAM 0.5 MG TAB PO SCH (20:17)
[2023-09-30] MEDS: ERTAPENEM 0.5 GM in SODIUM CHLORIDE 0.9% 50 ML IVPB SCH (20:17)
[2023-10-01 06:16] LABS: Glucose,Whole Blood 121 mg/dL (70-110)
[2023-10-01] MEDS: INSULIN ASPART (NovoLOG) 100 UNIT/ML VIAL SQ SCH ×4 (06:23→21:30)
--- NOTE | 2023-10-01 06:33 | P.PN ---
Subjective Progress Note Date: 09/30/23 Patient is a 78-year-old female with a known history of ESRD on hemodialysis, hypertension, diabetes type 2, paroxysmal send fibrillation on anticoagulation, Parkinson's disease, history of left AKA done on 08/09/2023 due to chronically infected left knee hardware was sent to ER from [facility] due to complaints of left AKA stump wound draining purulent discharge. Patient had recent wound cultures done on 09/18/2023 showed Klebsiella pneumonia. Patient was taking oral Bactrim with no improvement and was referred to ER. Otherwise patient does have underlying dementia and also language barrier. Most of the history was taken from her family at bedside. Patient is afebrile. No nausea vomiting or diarrhea. No complaints of chest pain or shortness of breath. No headache or dizziness. EKG showed sinus rhythm. Laboratory showed WBC 14.6, hemoglobin 9.5 and platelets 254. Sodium 131 potassium 4.7 chloride 95, BUN 28 and creatinine 2.82 and blood sugar 151. AST 124 ALT 63 and alk phos 182 09/26/2023 Patient is resting in bed. No complaints of chest pain or shortness of breath. Leg pain is better. Patient has been afebrile. CT of the left lower extremity showed abscess inferior to the amputated femur. A second are potentially communicating abscess with the inferior femoral abscess extending lateral to the subcutaneous tissue and contains air. Patient is being continued on IV antibiotics. ID and vascular surgery is on board. Patient is on vancomycin and ceftriaxone. Laboratory data reviewed. 09/27/2023 Patient is seen in follow-up today asleep although easily arousable. Patient is maintained on antibiotics with infectious disease following along with vascular surgery and plans on debridement with deep tissue cultures and wound VAC application of the left stump. Patient continued on antibiotics with infectious disease following and will await finalized cultures to determine discharge antibiotics. Patient is afebrile with no reported chest pain or shortness of breath. Patient is tolerating diet and denies any nausea or vomiting. Patient is continued on hemodialysis with nephrology following. 09/28/2023. Patient is status post debridement of the left stump with wound VAC placement and cultures have been obtained. Preliminary culture showing gram-negative and will continue current regimen with infectious disease following while awaiting finalized cultures to determine discharge antibiotics. Patient to continue with hemodialysis with nephrology following. Patient is afebrile with no reported chest pains or shortness of breath. Patient will be going to ECF on discharge. 09/29/2023 The patient is seen in follow-up today currently sleeping although easily kitty usable. Preliminary cultures from the debridement with wound VAC placement by vascular surgery preliminary showing gram-negative bacilli. Infectious disease following and maintained on antibiotics and will await finalized cultures to determine discharge antibiotics. Patient is currently afebrile maintained on hemodialysis with nephrology following. Case management following and arranging for wound VAC on discharge and patient will be returning to [facility]. 09/30/2023 Patient is seen and evaluated in follow-up today status post debridement of the left BKA and continues with wound VAC. Patient continued on ant antibiotics with infectious disease following and culture showing Enterobacter along with Klebsiella pneumonia with multiple resistance. Patient will likely require IV antibiotic therapy on discharge. Patient with plans to return to [facility] as patient resides there. Will follow-up on repeat labs and discuss with case management along with vascular surgery and infectious disease on discharge planning. Review of systems: Unable to completely assess due to language barrier All medications have been reviewed Active Medications PHYSICAL EXAMINATION: Patient is lying in the bed no acute distress, asleep although arousable, alert and oriented x 2. Unable to communicate due to language barrier... HEENT: Normocephalic. Neck is supple. Pupils reactive. Nostrils clear. Oral cavity is moist. Neck reveals no JVD, carotid bruits, or thyromegaly. CHEST EXAMINATION: Trachea is central. Symmetrical expansion. Lung garland clear to auscultation and percussion. CARDIAC: Normal S1, S2 with no gallops. No murmurs ABDOMEN: Soft. Bowel sounds present. Nontender. No organomegaly. No abdominal bruits. Extremities: Left lower extremity stump site is less swollen with wound VAC noted with serous drainage Neurologically awake, alert, oriented x2. Able to move extremities. No gross focal deficits. Underlying cognitive impairment. Skin: No rash or skin lesions. Psychiatric: Cooperative. Could not be assessed completely due to language barrier., Musculoskeletal: No joint swelling or deformity. . Assessment: Infected left AKA amputation site with abscess. Recent cultures on 09/18/2023 showed Klebsiella pneumonia. History of left AKA on 08/09/2023 due to chronic knee hardware infection/fistula Status post debridement with wound VAC placement of the left AKA stump, preliminary culture showing Enterobacter with Klebsiella pneumonia and multiple resistance ESRD on hemodialysis Diabetes type 2 Hypokalemia, improved Paroxysmal atrial fibrillation Sick sinus syndrome status post permanent pacemaker placement Seizure disorder Dementia Parkinson's disease GERD Hypertension Hyperlipidemia DVT prophylaxis. Patient is already on Eliquis. Plan: Patient will be continued on antibiotics with infectious disease following. Adjustments to medications being made as cultures from the debridement and wound VAC placement with vascular surgery showing Enterobacter with Klebsiella pneumonia and multiple resistance. Will discuss further with infectious disease to determine discharge antibiotics Follow-up on repeat labs in the a.m. Continue with home medications Nephrology following as patient is maintained on hemodialysis Sunday/Sunday/Sunday Patient will be returning to [facility] where she resides once stabilized and will discuss further with case management once cleared by consultations and finalized cultures to determine discharge planning Due to multiple complex medical issues, prognosis is guarded. The impression and plan of care has been dictated by Kajal Torre, Nurse Practitioner as directed. Dr. Val MD I have performed a history and examination and MDM of this patient, discussed the same with the dictator, and agree with the dictator's assessment and plan as written ,documented as a scribe. Based on total visit time, I have performed more than 50% of the visit. Objective - Vital Signs Vital signs: Vital Signs Temp 97.6 F 09/30/23 13:48 Pulse 73 09/30/23 13:48 Resp 18 09/30/23 13:48 BP 114/65 09/30/23 13:48 Pulse Ox 95 09/30/23 13:48 FiO2 Intake & Output 09/29/23 09/30/23 09/30/23 18:59 06:59 18:59 Other: Voiding Method Diaper Diaper Diaper Incontinent Incontinent Incontinent # Voids 4 # Bowel Movements 2 - Labs CBC & Chem 7: 09/30/23 09:31 09/30/23 09:31 Labs: Abnormal Lab Results - Last 24 Hours (Table) 09/29/23 09/30/23 09/30/23 Range/Units 20:39 06:18 09:31 RBC 3.24 L (3.80-5.40) m/uL Hgb 10.3 L (11.4-16.0) gm/dL Hct 33.1 L (34.0-46.0) % MCV 102.1 H (80.0-100.0) fL RDW 19.4 H (11.5-15.5) % Sodium (137-145) mmol/L BUN (7-17) mg/dL Creatinine (0.52-1.04) mg/dL Glucose (74-99) mg/dL POC Glucose (mg/dL) 187 H 176 H (70-110) mg/dL Calcium (8.4-10.2) mg/dL 09/30/23 09/30/23 09/30/23 Range/Units 09:31 11:18 16:13 RBC (3.80-5.40) m/uL Hgb (11.4-16.0) gm/dL Hct (34.0-46.0) % MCV (80.0-100.0) fL RDW (11.5-15.5) % Sodium 134 L (137-145) mmol/L BUN 33 H (7-17) mg/dL Creatinine 2.56 H (0.52-1.04) mg/dL Glucose 147 H (74-99) mg/dL POC Glucose (mg/dL) 147 H 150 H (70-110) mg/dL Calcium 7.9 L (8.4-10.2) mg/dL Microbiology - Last 24 Hours (Table) 09/27/23 12:50 Gram Stain - Final Leg - Left Wound Culture - Final Klebsiella pneumoniae Enterobacter cloacae
[2023-10-01] MEDS: carvediloL 6.25 MG TAB PO SCH ×2 (08:17→18:02)
[2023-10-01] MEDS: allopurinoL 300 MG TAB PO SCH (08:17)
[2023-10-01] MEDS: metroNIDAZOLE 500 MG TAB PO SCH ×2 (08:17→18:02)
[2023-10-01] MEDS: HYDROcodone/APAP 5-325MG 1 EACH TAB PO SCH ×4 (08:17→21:30)
[2023-10-01] MEDS: PANTOPRAZOLE 40 MG TABLET PO SCH (08:17)
[2023-10-01] MEDS: GABAPENTIN 300 MG CAP PO SCH (08:17)
[2023-10-01] MEDS: TORSEMIDE 20 MG TAB PO SCH ×2 (08:18→18:02)
[2023-10-01] MEDS: SERTRALINE 25 MG TAB PO SCH (08:18)
[2023-10-01] MEDS: FOLIC ACID-VIT B COMPLEX-VIT C 1 CAP PO SCH (08:18)
--- NOTE | 2023-10-01 10:21 | P.PN ---
Subjective Patient is seen in follow-up for end-stage renal disease. She is maintained on hemodialysis on Sunday schedule. Tolerating dialysis well. Awake. Denies chest pain or shortness of breath. Vital signs are stable. General: No acute distress. HEENT: Head exam is unremarkable. LUNGS: No audible rhonchi or wheezes. HEART: Rate and Rhythm are regular. ABDOMEN: Nontender. EXTREMITITES: Left AKA. 1+ edema right lower extremity. Objective - Vital Signs Vital signs: Vital Signs Temp 97.0 F L 10/01/23 07:34 Pulse 76 10/01/23 07:34 Resp 17 10/01/23 07:34 BP 136/74 10/01/23 07:34 Pulse Ox 94 L 10/01/23 07:34 FiO2 Intake & Output 09/30/23 10/01/23 10/01/23 18:59 06:59 18:59 Other: Voiding Method Diaper Diaper Diaper Incontinent Incontinent Incontinent # Voids 6 2 # Bowel Movements 2 - Labs CBC & Chem 7: 09/30/23 09:31 09/30/23 09:31 Labs: Abnormal Lab Results - Last 24 Hours (Table) 09/30/23 09/30/23 09/30/23 Range/Units 09:31 09:31 11:18 RBC 3.24 L (3.80-5.40) m/uL Hgb 10.3 L (11.4-16.0) gm/dL Hct 33.1 L (34.0-46.0) % MCV 102.1 H (80.0-100.0) fL RDW 19.4 H (11.5-15.5) % Sodium 134 L (137-145) mmol/L BUN 33 H (7-17) mg/dL Creatinine 2.56 H (0.52-1.04) mg/dL Glucose 147 H (74-99) mg/dL POC Glucose (mg/dL) 147 H (70-110) mg/dL Calcium 7.9 L (8.4-10.2) mg/dL 09/30/23 09/30/23 10/01/23 Range/Units 16:13 19:44 06:15 RBC (3.80-5.40) m/uL Hgb (11.4-16.0) gm/dL Hct (34.0-46.0) % MCV (80.0-100.0) fL RDW (11.5-15.5) % Sodium (137-145) mmol/L BUN (7-17) mg/dL Creatinine (0.52-1.04) mg/dL Glucose (74-99) mg/dL POC Glucose (mg/dL) 150 H 182 H 121 H (70-110) mg/dL Calcium (8.4-10.2) mg/dL Microbiology - Last 24 Hours (Table) 09/25/23 12:52 Blood Culture - Final Blood 09/25/23 12:52 Blood Culture - Final Blood 09/27/23 12:50 Gram Stain - Final Leg - Left Wound Culture - Final Klebsiella pneumoniae Enterobacter cloacae Assessment and Plan Plan: Assessment: 1. End-stage renal disease maintained on hemodialysis on Sunday schedule. 2. Infected left AKA amputation site status post incision and drainage of abscess. Being followed by vascular surgery. Wound culture positive for Klebsiella and Enterobacter. On antibiotics. 3. Diabetes mellitus. 4. A-fib. 5. Anemia of chronic kidney disease maintained on Aranesp. Plan: Currently seen while undergoing hemodialysis. Phosphorus level 3.2 dated September 27, 2023. Monitor vancomycin levels. Dose to be adjusted for renal function.
[2023-10-01 11:06] LABS: Glucose,Whole Blood 162 mg/dL (70-110)
--- NOTE | 2023-10-01 12:22 | P.PN ---
Subjective Progress Note Date: 10/01/23 Principal diagnosis: Infected left amputation site Patient is seen and examined today as a follow-up. She is currently undergoing dialysis. She is without any complaints. She has her wound VAC dressing in place with good suction. No fevers or chills. Plan is for PICC line and discharge to subacute rehab. Dressing to be changed today. Objective - Vital Signs Vital signs: Vital Signs Temp 97.0 F L 10/01/23 07:34 Pulse 76 10/01/23 07:34 Resp 17 10/01/23 07:34 BP 136/74 10/01/23 07:34 Pulse Ox 94 L 10/01/23 07:34 FiO2 Intake & Output 09/30/23 10/01/23 10/01/23 18:59 06:59 18:59 Other: Voiding Method Diaper Diaper Incontinent Incontinent # Voids 6 2 # Bowel Movements 2 - Exam General appearance: The patient is alert, oriented, obese. Appears in no acute distress. HET: Head is normocephalic and atraumatic. Pupils are equal and reactive. Abdomen: Soft, obese, nondistended. Extremities: Left nafcr-dwn-mkuy amputation site with wound VAC with good suction. Neurological: No focal deficits. - Labs CBC & Chem 7: 09/30/23 09:31 09/30/23 09:31 Labs: Abnormal Lab Results - Last 24 Hours (Table) 09/30/23 09/30/23 09/30/23 Range/Units 09:31 09:31 11:18 RBC 3.24 L (3.80-5.40) m/uL Hgb 10.3 L (11.4-16.0) gm/dL Hct 33.1 L (34.0-46.0) % MCV 102.1 H (80.0-100.0) fL RDW 19.4 H (11.5-15.5) % Sodium 134 L (137-145) mmol/L BUN 33 H (7-17) mg/dL Creatinine 2.56 H (0.52-1.04) mg/dL Glucose 147 H (74-99) mg/dL POC Glucose (mg/dL) 147 H (70-110) mg/dL Calcium 7.9 L (8.4-10.2) mg/dL 09/30/23 09/30/2310/01/24 Range/Units 16:13 19:44 06:15 RBC (3.80-5.40) m/uL Hgb (11.4-16.0) gm/dL Hct (34.0-46.0) % MCV (80.0-100.0) fL RDW (11.5-15.5) % Sodium (137-145) mmol/L BUN (7-17) mg/dL Creatinine (0.52-1.04) mg/dL Glucose (74-99) mg/dL POC Glucose (mg/dL) 150 H 182 H 121 H (70-110) mg/dL Calcium (8.4-10.2) mg/dL Microbiology - Last 24 Hours (Table) 09/25/23 12:52 Blood Culture - Final Blood 09/25/23 12:52 Blood Culture - Final Blood 09/27/23 12:50 Gram Stain - Final Leg - Left Wound Culture - Final Klebsiella pneumoniae Enterobacter cloacae Assessment and Plan Assessment: 1. Infected left lbdrb-xoe-osfp amputation site status post incision and drainage of abscess and wound VAC application 2. History of left ukspp-fgc-gdaz amputation for infected left knee hardware and chronic wound done on 08/09/2023 3. Diabetes mellitus 4. Atrial fibrillation with permanent pacemaker 5. Dementia Plan: 1. Wound cultures obtained, preliminary with gram-negative bacilli 2. Patient is s/p incision and drainage with wound VAC application 3. Change wound VAC dressing Sunday, Sunday, Sunday 4. Patient will need to follow-up with the wound care 5. Antibiotic recommendations per infectious disease 6. Patient is cleared from vascular surgery for discharge, After PICC line placed. Thank you for this consultation. We will sign off at this time. The impression and plan of care has been dictated as directed. Dr. Spencer I performed a history and examination of this patient, discussed the same with the dictator. I agree with the dictator's note ,documented as a scribe. Any additional findings or plans will be noted.
--- NOTE | 2023-10-01 13:08 | P.PN ---
Subjective Progress Note Date: 10/01/23 Patient is a 78-year-old female with a known history of ESRD on hemodialysis, hypertension, diabetes type 2, paroxysmal send fibrillation on anticoagulation, Parkinson's disease, history of left AKA done on 08/09/2023 due to chronically infected left knee hardware was sent to ER from [facility] due to complaints of left AKA stump wound draining purulent discharge. Patient had recent wound cultures done on 09/18/2023 showed Klebsiella pneumonia. Patient was taking oral Bactrim with no improvement and was referred to ER. Otherwise patient does have underlying dementia and also language barrier. Most of the history was taken from her family at bedside. Patient is afebrile. No nausea vomiting or diarrhea. No complaints of chest pain or shortness of breath. No headache or dizziness. EKG showed sinus rhythm. Laboratory showed WBC 14.6, hemoglobin 9.5 and platelets 254. Sodium 131 potassium 4.7 chloride 95, BUN 28 and creatinine 2.82 and blood sugar 151. AST 124 ALT 63 and alk phos 182 09/26/2023 Patient is resting in bed. No complaints of chest pain or shortness of breath. Leg pain is better. Patient has been afebrile. CT of the left lower extremity showed abscess inferior to the amputated femur. A second are potentially communicating abscess with the inferior femoral abscess extending lateral to the subcutaneous tissue and contains air. Patient is being continued on IV antibiotics. ID and vascular surgery is on board. Patient is on vancomycin and ceftriaxone. Laboratory data reviewed. 09/27/2023 Patient is seen in follow-up today asleep although easily arousable. Patient is maintained on antibiotics with infectious disease following along with vascular surgery and plans on debridement with deep tissue cultures and wound VAC application of the left stump. Patient continued on antibiotics with infectious disease following and will await finalized cultures to determine discharge antibiotics. Patient is afebrile with no reported chest pain or shortness of breath. Patient is tolerating diet and denies any nausea or vomiting. Patient is continued on hemodialysis with nephrology following. 09/28/2023. Patient is status post debridement of the left stump with wound VAC placement and cultures have been obtained. Preliminary culture showing gram-negative and will continue current regimen with infectious disease following while awaiting finalized cultures to determine discharge antibiotics. Patient to continue with hemodialysis with nephrology following. Patient is afebrile with no reported chest pains or shortness of breath. Patient will be going to [facility] on discharge. 09/29/2023 The patient is seen in follow-up today currently sleeping although easily kitty usable. Preliminary cultures from the debridement with wound VAC placement by vascular surgery preliminary showing gram-negative bacilli. Infectious disease following and maintained on antibiotics and will await finalized cultures to determine discharge antibiotics. Patient is currently afebrile maintained on hemodialysis with nephrology following. Case management following and arranging for wound VAC on discharge and patient will be returning to [facility]. 09/30/2023 Patient is seen and evaluated in follow-up today status post debridement of the left BKA and continues with wound VAC. Patient continued on ant antibiotics with infectious disease following and culture showing Enterobacter along with Klebsiella pneumonia with multiple resistance. Patient will likely require IV antibiotic therapy on discharge. Patient with plans to return to [facility] as patient resides there. Will follow-up on repeat labs and discuss with case management along with vascular surgery and infectious disease on discharge planning. 10/01/2023 Patient is seen in follow-up today being followed by vascular surgery along with infectious disease and nephrology. Patient continued on dialysis and receives dialysis Sunday/Sunday/Sunday currently receiving dialysis at this time. Patient will be going to [facility] on discharge where she resides. Patient will need a PICC line and will be continued on IV antibiotics as patient had multidrug resistance on cultures with infectious disease following. Case management following and arranging for discharge planning. Patient is currently afebrile with no reported chest pain or shortness of breath. Patient tolerating diet and will continue with Accu-Cheks before meals and at bedtime. Possible discharge planning in 24 hours. Review of systems: Unable to completely assess due to language barrier All medications have been reviewed PHYSICAL EXAMINATION: Patient is lying in the bed no acute distress, awake, alert and oriented x 2. Baseline. Unable to communicate due to language barrier... HEENT: Normocephalic. Neck is supple. Pupils reactive. Nostrils clear. Oral cavity is moist. Neck reveals no JVD, carotid bruits, or thyromegaly. CHEST EXAMINATION: Trachea is central. Symmetrical expansion. Lung garland clear to auscultation and percussion. CARDIAC: Normal S1, S2 with no gallops. No murmurs ABDOMEN: Soft. Bowel sounds present. Nontender. No organomegaly. No abdominal bruits. Extremities: Left lower extremity stump site is less swollen with wound VAC not ed with serous drainage Neurologically awake, alert, oriented x2. Able to move extremities. No gross focal deficits. Underlying cognitive impairment. Skin: No rash or skin lesions. Psychiatric: Cooperative. Could not be assessed completely due to language barrier., Musculoskeletal: No joint swelling or deformity. . Assessment: Infected left AKA amputation site with abscess. Recent cultures on 09/18/2023 showed Klebsiella pneumonia. History of left AKA on 08/09/2023 due to chronic knee hardware infection/fistula Status post debridement with wound VAC placement of the left AKA stump, prel iminary culture showing Enterobacter with Klebsiella pneumonia and multiple resistance ESRD on hemodialysis Diabetes type 2 Hypokalemia, improved Paroxysmal atrial fibrillation Sick sinus syndrome status post permanent pacemaker placement Seizure disorder Dementia Parkinson's disease GERD Hypertension Hyperlipidemia DVT prophylaxis. Patient is already on Eliquis. Plan: Patient will be continued on antibiotics with infectious disease following. Adjustments to medications being made as cultures from the debridement and wound VAC placement with vascular surgery showing Enterobacter with Klebsiella pneumonia and multiple resistance. Patient will require a PICC line for continued IV antibiotic therapy in the outpatient setting. PICC line order placed and pending at this time Continue with home medications Nephrology following as patient is maintained on hemodialysis Sunday/Sunday/Sunday. Patient currently receiving hemodialysis today. Patient will be returning to [facility] where she resides once receiving a PICC line. Continued wound care and wound VAC in the outpatient setting Due to multiple complex medical issues, prognosis is guarded. Probable discharge in 24 hours The impression and plan of care has been dictated by Kajal Torre, Nurse Practitioner as directed. Dr. Val MD I have performed a history and examination and MDM of this patient, discussed the same with the dictator, and agree with the dictator's assessment and plan as written ,documented as a scribe. Based on total visit time, I have performed more than 50% of the visit. Objective - Vital Signs Vital signs: Vital Signs Temp 97.0 F L 10/01/23 07:34 Pulse 76 10/01/23 07:34 Resp 17 10/01/23 07:34 BP 136/74 10/01/23 07:34 Pulse Ox 94 L 10/01/23 07:34 FiO2 Intake & Output 09/30/23 10/01/23 10/01/23 18:59 06:59 18:59 Other: Voiding Method Diaper Diaper Diaper Incontinent Incontinent Incontinent # Voids 6 2 # Bowel Movements 2 - Labs CBC & Chem 7: 09/30/23 09:31 09/30/23 09:31 Labs: Abnormal Lab Results - Last 24 Hours (Table) 09/30/23 09/30/23 09/30/23 Range/Units 09:31 09:31 11:18 RBC 3.24 L (3.80-5.40) m/uL Hgb 10.3 L (11.4-16.0) gm/dL Hct 33.1 L (34.0-46.0) % MCV 102.1 H (80.0-100.0) fL RDW 19.4 H (11.5-15.5) % Sodium 134 L (137-145) mmol/L BUN 33 H (7-17) mg/dL Creatinine 2.56 H (0.52-1.04) mg/dL Glucose 147 H (74-99) mg/dL POC Glucose (mg/dL) 147 H (70-110) mg/dL Calcium 7.9 L (8.4-10.2) mg/dL 09/30/23 09/30/23 10/01/23 Range/Units 16:13 19:44 06:15 RBC (3.80-5.40) m/uL Hgb (11.4-16.0) gm/dL Hct (34.0-46.0) % MCV (80.0-100.0) fL RDW (11.5-15.5) % Sodium (137-145) mmol/L BUN (7-17) mg/dL Creatinine (0.52-1.04) mg/dL Glucose (74-99) mg/dL POC Glucose (mg/dL) 150 H 182 H 121 H (70-110) mg/dL Calcium (8.4-10.2) mg/dL Microbiology - Last 24 Hours (Table) 09/25/23 12:52 Blood Culture - Final Blood 09/25/23 12:52 Blood Culture - Final Blood 09/27/23 12:50 Gram Stain - Final Leg - Left Wound Culture - Final Klebsiella pneumoniae Enterobacter cloacae
[2023-10-01 14:48] VITALS: BMI 25.7
[2023-10-01] MEDS ORDERED: LIDOCAINE 1% INJ 10MG/ML (20 ML MDV) ONE (15:05)
[2023-10-01] MEDS ORDERED: LIDOCAINE 1% INJ 10MG/ML (20 ML MDV) SQ ONE (15:10)
--- NOTE | 2023-10-01 16:14 | IR ---
EXAMINATION TYPE: IR cvc insert >=5 years DATE OF EXAM: 10/01/2023 FLUOROSCOPY PICC line placement for ANTIBIOTICS 31 DAYS, 46CM LEFT BASILIC, 1.8MIN FLUORO. 260 images submitted. 2.22 Gycm2.
[2023-10-01 17:36] LABS: Glucose,Whole Blood 207 mg/dL (70-110)
[2023-10-01] MEDS: ERTAPENEM 0.5 GM in SODIUM CHLORIDE 0.9% 50 ML IVPB SCH (18:02)
[2023-10-01] MEDS: TAMSULOSIN 0.4 MG CAP.ER.24H PO SCH (18:02)
--- NOTE | 2023-10-01 19:17 | P.PCN ---
Date of Procedure: 10/01/23 Preoperative Diagnosis: Left above knee amputation wound, need for IV antibiotics Postoperative Diagnosis: same Procedure(s) Performed: Left upper extremity basilic vein PICC line placement under ultrasound and fluoroscopic guidance Surgeon: George Spencer Pathology: none sent Disposition: floor Indications for Procedure: 78-year-old female with history of left above-knee amputation wound in need of long-term IV antibiotics presents for PICC line placement Description of Procedure: After written and informed consent was obtained the patient and all risks, benefits and competitions were described the patient was brought to the [employer] [facility] and laid in a supine position with her left arm outstretched on an armboard. The area of the left arm was prepped and draped in usual sterile fashion. Timeout was performed in normal fashion. Utilizing ultrasound the basilic vein was visualized and shown to be compressible without any visible thrombus. Under ultrasound guidance the basilic vein was then cannulated with a micropuncture needle and wire was placed under direct visualization of fluoroscopy. Introducer sheath was then placed. The catheter was measured and cut to the appropriate length which was 46 cm. The catheter was then guided through the breakaway sheath and the sheath was removed with good positioning was visualized under fluoroscopy. The catheter was pulled and flushed easily. It was then secured in place in normal fashion. Patient tolerated the procedure well was sent back to the room for recovery.
[2023-10-01 20:34] LABS: Glucose,Whole Blood 220 mg/dL (70-110)
--- NOTE | 2023-10-01 21:01 | P.PN ---
Subjective Progress Note Date: 09/29/23 Principal diagnosis: Reason for follow-up is left AKA stump wound infection This was a telehealth visit Patient is a 78-year-old female with multiple comorbidity did have chronic infection to the left leg requiring left tksgo-dmg-zdiq amputation now presenting to the hospital with stump infection with outpatient culture positive for Klebsiella Patient is status post I&D of the left AKA abscess and application of a wound VAC on 09/27/2023 On today's evaluation that is 09/29/2023 the patient remains to be afebrile, patient is breathing comfortably on room air no chest pain shortness of breath or cough no abdominal pain and pain to the left AKA stump is currently controlled. Patient did have white count of 9.7, creatinine is 1.91, vancomycin random is 21.1 Objective - Vital Signs Vital signs: Vital Signs Temp 99.0 F 09/29/23 07:15 Pulse 64 09/29/23 07:15 Resp 20 09/29/23 07:15 BP 140/72 09/29/23 07:15 Pulse Ox 100 09/29/23 07:15 FiO2 Intake & Output 09/28/23 09/29/23 09/29/23 18:59 06:59 18:59 Intake Total 400 Output Total 2000 Balance -1600 Intake: Hemodialysis 400 Output: Hemodialysis 1999 Other: Voiding Method Diaper Diaper Incontinent Incontinent # Voids 1 1 # Bowel Movements 2 0 - Exam Elderly female lying in bed in no distress Respiratory system unlabored breathing decreased breath sound the base Heart S1-S2 regular Abdominal soft no tenderness Left AKA stump wound covered with a wound VAC Exam completed with the help of COUNSELING PROGRAM LEADER - Labs CBC & Chem 7: 09/30/23 09:31 09/30/23 09:31 Labs: Abnormal Lab Results - Last 24 Hours (Table) 09/28/23 09/28/23 09/28/23 Range/Units 11:20 17:01 20:21 RBC (3.80-5.40) m/uL Hgb (11.4-16.0) gm/dL Hct (34.0-46.0) % RDW (11.5-15.5) % Sodium (137-145) mmol/L Potassium (3.5-5.1) mmol/L BUN (7-17) mg/dL Creatinine (0.52-1.04) mg/dL Glucose (74-99) mg/dL POC Glucose (mg/dL) 150 H 227 H 204 H (70-110) mg/dL Calcium (8.4-10.2) mg/dL C-Reactive Protein (<1.0) mg/dL 09/29/23 09/29/23 09/29/23 Range/Units 07:01 08:22 08:22 RBC 3.18 L (3.80-5.40) m/uL Hgb 10.1 L (11.4-16.0) gm/dL Hct 31.8 L (34.0-46.0) % RDW 19.2 H (11.5-15.5) % Sodium 131 L (137-145) mmol/L Potassium 3.1 L (3.5-5.1) mmol/L BUN 19 H (7-17) mg/dL Creatinine 1.91 H (0.52-1.04) mg/dL Glucose 147 H (74-99) mg/dL POC Glucose (mg/dL) 144 H (70-110) mg/dL Calcium 7.7 L (8.4-10.2) mg/dL C-Reactive Protein 3.6 H (<1.0) mg/dL Microbiology - Last 24 Hours (Table) 09/27/23 12:50 Gram Stain - Preliminary Leg - Left 09/25/23 12:52 Blood Culture - Preliminary Blood 09/25/23 12:52 Blood Culture - Preliminary Blood 09/25/23 12:52 Anaerobic Culture - Final Leg - Left Anaerobic Gm Negative Bacilli 09/25/23 12:52 Gram Stain - Final Leg - Left Wound Culture - Final Klebsiella pneumoniae Enterobacter cloacae Assessment and Plan (1) Left leg cellulitis Current Visit: Yes Status: Acute Code(s): L03.116 - CELLULITIS OF LEFT LOWER LIMB SNOMED Code(s): 34626644136377523 (2) Surgical wound infection Current Visit: Yes Status: Acute Code(s): T81.49XA - INFECTION FOLLOWING A PROCEDURE, OTHER SURGICAL SITE, INIT SNOMED Code(s): 23552434 Plan: 1patient with recent history of left snrgo-ygb-dxhl amputation now presenting to the hospital with drainage from the left AKA stump site with outpatient culture positive for Klebsiella that was done on 09/18/2023 failing outpatient oral Bactrim DS therapy 2patient is status post debridement of the left AKA stump drainage of the abscess and cultures which are currently pending, initial culture growing Klebsiella Enterobacter that is resistant to cefepime 3we will discontinue Rocephin and start the patient on cefepime Dictation was produced using [employer] dictation software. please excuse any grammatical, word or spelling errors. Time with Patient: Less than 30
--- NOTE | 2023-10-01 21:13 | P.PN ---
Subjective Progress Note Date: 09/30/23 Principal diagnosis: Reason for follow-up is left AKA stump wound infection This was a telehealth visit Patient is a 78-year-old female with multiple comorbidity did have chronic infection to the left leg requiring left vcsbb-zcl-yhcf amputation now presenting to the hospital with stump infection with outpatient culture positive for Klebsiella Patient is status post I&D of the left AKA abscess and application of a wound VAC on 09/27/2023 On today's evaluation that is 09/30/2023 patient continues to be afebrile, the patient is breathing comfortably on room air no need for supplemental oxygen the patient denies having any chest pain shortness of breath or cough no nausea vom iting no abdominal pain or diarrhea or any worsening pain to the left AKA stump patient white count of 9.8, creatinine is 2.56 left AKA stump OR cultures growing Enterobacter that is multidrug-resistant resistant to cefepime and Zosyn Objective - Vital Signs Vital signs: Vital Signs Temp 97.6 F 09/30/23 13:48 Pulse 73 09/30/23 13:48 Resp 18 09/30/23 13:48 BP 114/65 09/30/23 13:48 Pulse Ox 95 09/30/23 13:48 FiO2 Intake & Output 09/29/23 09/30/23 09/30/23 18:59 06:59 18:59 Other: Voiding Method Diaper Diaper Diaper Incontinent Incontinent Incontinent # Voids 4 # Bowel Movements 2 - Exam Elderly female lying in bed in no distress Respiratory system unlabored breathing decreased breath sound the base Heart S1-S2 regular Abdominal soft no tenderness Left AKA stump wound covered with a wound VAC Exam completed with the help of COMPUTER TECHNOLOGIST - Labs CBC & Chem 7: 09/30/23 09:31 09/30/23 09:31 Labs: Abnormal Lab Results - Last 24 Hours (Table) 09/29/23 09/30/23 09/30/23 Range/Units 20:39 06:18 09:31 RBC 3.24 L (3.80-5.40) m/uL Hgb 10.3 L (11.4-16.0) gm/dL Hct 33.1 L (34.0-46.0) % MCV 102.1 H (80.0-100.0) fL RDW 19.4 H (11.5-15.5) % Sodium (137-145) mmol/L BUN (7-17) mg/dL Creatinine (0.52-1.04) mg/dL Glucose (74-99) mg/dL POC Glucose (mg/dL) 187 H 176 H (70-110) mg/dL Calcium (8.4-10.2) mg/dL 09/30/23 09/30/23 09/30/23 Range/Units 09:31 11:18 16:13 RBC (3.80-5.40) m/uL Hgb (11.4-16.0) gm/dL Hct (34.0-46.0) % MCV (80.0-100.0) fL RDW (11.5-15.5) % Sodium 134 L (137-145) mmol/L BUN 33 H (7-17) mg/dL Creatinine 2.56 H (0.52-1.04) mg/dL Glucose 147 H (74-99) mg/dL POC Glucose (mg/dL) 147 H 150 H (70-110) mg/dL Calcium 7.9 L (8.4-10.2) mg/dL Microbiology - Last 24 Hours (Table) 09/27/23 12:50 Gram Stain - Final Leg - Left Wound Culture - Final Klebsiella pneumoniae Enterobacter cloacae Assessment and Plan (1) Left leg cellulitis Current Visit: Yes Status: Acute Code(s): L03.116 - CELLULITIS OF LEFT LOWER LIMB SNOMED Code(s): 90544183960600490 (2) Surgical wound infection Current Visit: Yes Status: Acute Code(s): T81.49XA - INFECTION FOLLOWING A PROCEDURE, OTHER SURGICAL SITE, INIT SNOMED Code(s): 48913731 Plan: 1patient with recent history of left ffbch-pmi-vtec amputation now presenting to the hospital with drainage from the left AKA stump site with outpatient culture positive for Klebsiella that was done on 09/18/2023 failing outpatient o ral Bactrim DS therapy 2patient is status post debridement of the left AKA stump drainage of the ab scess and cultures which are currently growing Klebsiella Enterobacter that is resistant to cefepime and Zosyn 3we will discontinue cefepime and start the patient on Invanz 500 mg daily Dictation was produced using Per[employer] Softwareation software. please excuse any grammatical, word or spelling errors. Time with Patient: Less than 30
--- NOTE | 2023-10-01 21:15 | P.PN ---
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 No new labs has been obtained today Objective - Vital Signs Vital signs: Vital Signs Temp 97.9 F 10/01/23 13:59 Pulse 74 10/01/23 13:59 Resp 74 H 10/01/23 13:59 BP 172/70 10/01/23 13:59 Pulse Ox 100 10/01/23 13:37 FiO2 Intake & Output 09/30/23 10/01/23 10/01/23 18:59 06:59 18:59 Intake Total 400 Output Total 1262 Balance -862 Intake: Hemodialysis 400 Output: Hemodialysis 1262 Other: Voiding Method Diaper Diaper Diaper Incontinent Incontinent Incontinent # Voids 6 2 # Bowel Movements 2 - Exam GENERAL DESCRIPTION: An elderly female lying in bed in no distress RESPIRATORY SYSTEM: Unlabored breathing , decreased breath sounds at bases HEART: S1 S2 regular rate and rhythm , ABDOMEN: Soft , no tenderness EXTREMITIES: Left AKA stump wound is pretty deep surrounding swelling redness improved - Labs CBC & Chem 7: 09/30/23 09:31 09/30/23 09:31 Labs: Abnormal Lab Results - Last 24 Hours (Table) 09/30/23 09/30/23 10/01/23 Range/Units 16:13 19:44 06:15 POC Glucose (mg/dL) 150 H 182 H 121 H (70-110) mg/dL 10/01/23 Range/Units 11:05 POC Glucose (mg/dL) 162 H (70-110) mg/dL Microbiology - Last 24 Hours (Table) 09/27/23 12:50 Anaerobic Culture - Preliminary Leg - Left Anaerobic Gm Negative Bacilli 09/25/23 12:52 Blood Culture - Final Blood 09/25/23 12:52 Blood Culture - Final Blood 09/27/23 12:50 Gram Stain - Final Leg - Left Wound Culture - Final Klebsiella pneumoniae Enterobacter cloacae Assessment and Plan (1) Left leg cellulitis Current Visit: Yes Status: Acute Code(s): L03.116 - CELLULITIS OF LEFT LOWER LIMB SNOMED Code(s): 30055744910144584 (2) Surgical wound infection Current Visit: Yes Status: Acute Code(s): T81.49XA - INFECTION FOLLOWING A PROCEDURE, OTHER SURGICAL SITE, INIT SNOMED Code(s): 90577386 Plan: 1patient with recent history of left dimls-[id number]-[id number] amputation now presenting to the hospital with drainage from the left AKA stump site with outpatient culture positive for Klebsiella that was done on 09/18/2023 failing outpatient oral Bactrim DS therapy 2patient is status post debridement of the left AKA stump drainage of the abscess and cultures which are currently growing Klebsiella Enterobacter that is resistant to cefepime and Zosyn 3patient to continue with Invanz 500 mg daily, she will need a PICC line and continue every 6-week course of IV Invanz daily on discharge Dictation was produced using [email or web address] dictation software. please excuse any grammatical, word or spelling errors. Time with Patient: Less than 30
[2023-10-01] MEDS: ATORVASTATIN 40 MG TAB PO SCH (21:30)
[2023-10-01] MEDS: clonazePAM 0.5 MG TAB PO SCH (21:30)
[2023-10-02 06:18] LABS: Glucose,Whole Blood 189 mg/dL (70-110)
[2023-10-02] MEDS: INSULIN ASPART (NovoLOG) 100 UNIT/ML VIAL SQ SCH ×2 (06:32→11:28)
[2023-10-02 07:20] VITALS: BP 127/77; PULSE 85; RESP 16; TEMP 98.2
[2023-10-02] MEDS: allopurinoL 300 MG TAB PO SCH (07:20)
[2023-10-02] MEDS: PANTOPRAZOLE 40 MG TABLET PO SCH (07:20)
[2023-10-02] MEDS: SERTRALINE 25 MG TAB PO SCH (07:20)
[2023-10-02] MEDS: TORSEMIDE 20 MG TAB PO SCH (07:20)
[2023-10-02] MEDS: carvediloL 6.25 MG TAB PO SCH (07:20)
[2023-10-02] MEDS: HYDROcodone/APAP 5-325MG 1 EACH TAB PO SCH ×2 (08:58→12:13)
[2023-10-02] MEDS ORDERED: GABAPENTIN 300 MG CAP PO SCH (09:00)
--- NOTE | 2023-10-02 10:06 | P.DS ---
Providers Date of admission: 09/25/23 14:09 Expected date of discharge: 10/02/23 Attending physician: Annabel Winter Consults: 09/25/23 12:11 Consult Physician Urgent Consulting Provider: Elliot Berger Consult Reason/Comments: right leg wound Do you want consulting provider notified?: Yes 09/25/23 14:09 Consult Physician Urgent Consulting Provider: George Spencer Consult Reason/Comments: Surgical wound infection Do you want consulting provider notified?: Yes 09/25/23 16:01 Consult Physician Routine Consulting Provider: Aleksandra Flores Consult Reason/Comments: CKD Do you want consulting provider notified?: Yes Primary care physician: Omar Chatman Hospital Course: Final diagnosis Infected left AKA amputation site with abscess. Recent cultures on 09/18/2023 showed Klebsiella pneumonia. History of left AKA on 08/09/2023 due to chronic knee hardware infection/fistula Status post debridement with wound VAC placement of the left AKA stump, preliminary culture showing Enterobacter with Klebsiella pneumonia and multiple resistance ESRD on hemodialysis Diabetes type 2 Hypokalemia, improved Paroxysmal atrial fibrillation Sick sinus syndrome status post permanent pacemaker placement Seizure disorder Dementia Parkinson's disease GERD Hypertension Hyperlipidemia DVT prophylaxis. Patient is already on Eliquis. Discharge disposition Patient is being discharged in a stable condition with guarded prognosis to [facility]. Patient will follow-up with Dr. Chatman in the outpatient setting upon discharge. Patient is to continue with hemodialysis as scheduled and close outpatient follow-up with nephrology. Patient to follow-up with vascular surgery in the next 1 to 2 weeks. Patient will be continued on IV Invanz and has received a PICC line for discharge antibiotics to continue for 6 weeks. Patient to follow at the wound center. Total time taken is greater than 35 minutes. Hospital course This is a 78-year-old female who was recently admitted with an infected left AKA amputation stump site with abscess and is status postdebridement. Multiple drug-resistant cultures growing Klebsiella along with Enterobacter gram- negative. Patient does have a wound VAC and will continue and close outpatient follow-up with vascular surgery at the wound care center. Patient has received a PICC line and will continue on IV Invanz daily for the next 6 weeks per ID recommendations recommend outpatient follow-up. Patient is maintained on hemodialysis and will continue current schedule and outpatient follow-up with nephrology. Patient has been cleared by consultations and will be returning to [facility]. Please refer to other consultation notes for further HPI. Currently no reports of chest pain, shortness of breath, or palpitations. Patient is afebrile. No reports of nausea or vomiting and patient is tolerating diet. Patient will be discharged to [facility] today. High risk for readmissions given patient's age and significant comorbidities. Physical exam: Gen: This is a 78-year-old female who is awake, alert and oriented x 1-2, mostly nonverbal as patient has a language barrier, well-developed, elderly appearing HEENT: Head is atraumatic, normocephalic. Pupils equal, round. Sclerae is anicteric. NECK: Supple. No JVD. No lymphadenopathy. No thyromegaly. LUNGS: Clear to auscultation. No wheezes or rhonchi. No intercostal retractions. HEART: Regular rate and rhythm. No murmur. ABDOMEN: Soft. Bowel sounds are present. No masses. No tenderness. EXTREMITIES: No pedal edema. No calf tenderness. Left AKA stump continues with wound VAC with good suction noted NEUROLOGICAL: Patient is awake, alert and oriented x1-2 baseline. Cranial nerves 2 through 12 are grossly intact. Diffusely weak Please refer to medication reconciliation sheet for a list of medications. The impression and plan of care has been dictated by Kajal Torre, Nurse Practitioner as directed. Dr. Brunilda MD I have performed a history and examination and MDM of this patient, discussed the same with the dictator, and agree with the dictator's assessment and plan as written ,documented as a scribe. Based on total visit time, I have performed more than 50% of the visit. Patient Condition at Discharge: Fair Plan - Discharge Summary New Discharge Prescriptions: New Ertapenem [INVanz] 0.5 gm IVPB DAILY@1900 42 Days #42 each INSULIN ASPART (NovoLOG) [NovoLOG (formulary)] 0 unit SQ ACHS each Darbepoetin Peng [Aranesp] 40 mcg SQ Q7D each Continue Ferrous Sulfate [Iron (65 MG Elemental)] 325 mg PO BID@0800,1700 Lactulose [Cephulac] 20 gm PO DAILY PRN ml PRN Reason: Constipation Acetaminophen Tab [Tylenol] 500 mg PO Q6HR PRN tab PRN Reason: Fever > 101 And/ Or Pain Ipratropium-Albuterol Nebulize [Duoneb 0.5 mg-3 mg/3 ml Soln] 3 ml INHALATION RT-BID PRN PRN Reason: Shortness Of Breath Or Wheezing Ondansetron [Zofran] 4 mg PO Q6H PRN PRN Reason: Nausea And Vomiting Ergocalciferol (Vitamin D2) [Drisdol (50,000 Iu)] 1,250 mcg PO FR@1200 Sertraline [Zoloft] 25 mg PO DAILY carvediloL [Coreg] 6.25 mg PO BID@0800,1700 L.acidoph,Paracasei, B.lactis [Probiotic] 1 cap PO HS@2100 Omeprazole 20 mg PO DAILY@0800 Atorvastatin [Lipitor] 40 mg PO HS@2000 Sodium Chloride [Saline Mist] 1 spray EA NOSTRIL Q2H PRN PRN Reason: DRYNESS bisacodyL [Dulcolax] 10 mg RECTAL DAILY PRN PRN Reason: Constipation allopurinoL [Zyloprim] 300 mg PO DAILY Magnesium Oxide [Mag-Ox] 400 mg PO HS@2000 Midodrine [ProAmatine] 5 mg PO BID PRN tab PRN Reason: SBP <110 Liquicell 30 ml PO BID@0800,1700 Apixaban [Eliquis] 2.5 mg PO BID@0800,1700 Folic Acid/Vit B Complex and C [Nephro-Dipti Tablet] 0.8 mg PO DAILY@1200 Tamsulosin [Flomax] 0.4 mg PO DAILY@1700 Torsemide [Demadex] 40 mg PO BID@0800,1700 Changed clonazePAM [KlonoPIN] 0.5 mg PO HS@1999 #2 tab Gabapentin [Neurontin] 300 mg PO BID@0800,1700 #4 cap HYDROcodone/APAP 5-325MG [Milligan 5-325] 1 tab PO QID #4 tab Discontinued Sulfamethoxazole/Trimethoprim [Bactrim DS 800-160 mg] 1 tab PO DAILY@1700 Discharge Medication List Atorvastatin [Lipitor] 40 mg PO HS@199912/29/21 [History] Ferrous Sulfate [Iron (65 MG Elemental)] 325 mg PO BID@0800,1700 12/29/21 [History] Omeprazole 20 mg PO DAILY@0800 12/29/21 [History] Lactulose [Cephulac] 20 gm PO DAILY PRN ml 01/05/22 [Rx] Sodium Chloride [Saline Mist] 1 spray EA NOSTRIL Q2H PRN 01/19/23 [History] allopurinoL [Zyloprim] 300 mg PO DAILY 01/19/23 [History] bisacodyL [Dulcolax] 10 mg RECTAL DAILY PRN 01/19/23 [History] Acetaminophen Tab [Tylenol] 500 mg PO Q6HR PRN tab 01/23/23 [Rx] Ipratropium-Albuterol Nebulize [Duoneb 0.5 mg-3 mg/3 ml Soln] 3 ml INHALATION RT-BID PRN 05/04/23 [History] Magnesium Oxide [Mag-Ox] 400 mg PO HS@199905/04/23 [History] Ondansetron [Zofran] 4 mg PO Q6H PRN 05/04/23 [History] Ergocalciferol (Vitamin D2) [Drisdol (50,000 Iu)] 1,250 mcg PO FR@1200 08/06/23 [History] Sertraline [Zoloft] 25 mg PO DAILY 08/06/23 [History] Midodrine [ProAmatine] 5 mg PO BID PRN tab 08/28/23 [Rx] Apixaban [Eliquis] 2.5 mg PO BID@0800,1700 09/25/23 [History] Folic Acid/Vit B Complex and C [Nephro-Dipti Tablet] 0.8 mg PO DAILY@1200 09/25/23 [History] L.acidoph,Paracasei, B.lactis [Probiotic] 1 cap PO HS@2100 09/25/23 [History] Liquicell 30 ml PO BID@0800,1700 09/25/23 [History] Tamsulosin [Flomax] 0.4 mg PO DAILY@169909/25/23 [History] Torsemide [Demadex] 40 mg PO BID@0800,1700 09/25/23 [History] carvediloL [Coreg] 6.25 mg PO BID@0800,1700 09/25/23 [History] Darbepoetin Peng [Aranesp] 40 mcg SQ Q7D each 10/02/23 [Rx] Ertapenem [INVanz] 0.5 gm IVPB DAILY@1900 42 Days #42 each 10/02/23 [Rx] Gabapentin [Neurontin] 300 mg PO BID@0800,1700 #4 cap 10/02/23 [Rx] HYDROcodone/APAP 5-325MG [Milligan 5-325] 1 tab PO QID #4 tab 10/02/23 [Rx] INSULIN ASPART (NovoLOG) [NovoLOG (formulary)] 0 unit SQ ACHS each 10/02/23 [Rx] clonazePAM [KlonoPIN] 0.5 mg PO HS@1999 #2 tab 10/02/23 [Rx] Follow up Appointment(s)/Referral(s): George Spencer DO [STAFF PHYSICIAN] - 2 Weeks Omar Chatman MD [Primary Care Provider] - 1-2 days [facility] [NON-STAFF] - 1 Week Activity/Diet/Wound Care/Special Instructions: Patient is returning to [facility] Activity as tolerated Patient will continue on antibiotics in the form of Invanz daily per ID recommendations for the next 6 weeks and has received a PICC line Continue with hemodialysis and outpatient follow-up with nephrology Follow-up with vascular surgery in the outpatient setting in 1 to 2 weeks Continue monitoring Accu-Cheks before meals and at bedtime and continue with sliding scale NovoLog sliding scale 0-150 equals 0 units 151-200 equals 2 units 201-250 equals 4 units 251-300 equals 6 units 301-350 equals 8 units 351-400 equals 10 units Please notify provider if blood sugar is 400 or above Follow-up with primary care provider on discharge Continue consistent carb renal diet with low potassium low sodium Patient's wound VAC therapy settings are 125 mmHg slow black GranuFoam and also per wounds to apply a 4 x 4 with wound VAC over the tunneled area on dressing changes Wound VAC application to left AKA. Change every Sunday, Sunday, Sunday Further wound care instructions per wound center Discharge Disposition: TRANSFER TO SNF/ECF
--- NOTE | 2023-10-02 10:57 | P.PN ---
Subjective Patient is seen in follow-up for end-stage renal disease. She is maintained on hemodialysis on Sunday schedule. No problems with dialysis yesterday. Resting in bed. Denies chest pain or shortness of breath. Vital signs are stable. General: No acute distress. HEENT: Head exam is unremarkable. LUNGS: No audible rhonchi or wheezes. HEART: Rate and Rhythm are regular. ABDOMEN: Nontender. EXTREMITITES: Left AKA. 1+ edema right lower extremity. Objective - Vital Signs Vital signs: Vital Signs Temp 98.2 F 10/02/23 07:18 Pulse 85 10/02/23 07:18 Resp 16 10/02/23 10:05 BP 127/77 10/02/23 07:18 Pulse Ox 100 10/02/23 07:18 FiO2 Intake & Output 10/01/23 10/02/23 10/02/23 18:59 06:59 18:59 Intake Total 400 Output Total 1262 Balance -862 Weight 68.039 kg Intake: Hemodialysis 400 Output: Hemodialysis 1262 Other: Voiding Method Diaper Diaper Diaper Incontinent Incontinent Incontinent # Voids 2 2 # Bowel Movements 2 - Labs CBC & Chem 7: 09/30/23 09:31 09/30/23 09:31 Labs: Abnormal Lab Results - Last 24 Hours (Table) 10/01/23 10/01/23 10/01/23 Range/Units 11:05 17:35 20:32 POC Glucose (mg/dL) 162 H 207 H 220 H (70-110) mg/dL 10/02/23 Range/Units 06:14 POC Glucose (mg/dL) 189 H (70-110) mg/dL Microbiology - Last 24 Hours (Table) 09/27/23 12:50 Anaerobic Culture - Final Leg - Left Anaerobic Gm Negative Bacilli Assessment and Plan Plan: Assessment: 1. End-stage renal disease maintained on hemodialysis on Sunday schedule. 2. Infected left AKA amputation site status post incision and drainage of abscess. Being followed by vascular surgery. Wound culture positive for Klebsiella and Enterobacter. On antibiotics. 3. Diabetes mellitus. 4. A-fib. 5. Anemia of chronic kidney disease maintained on Aranesp. Plan: Hemodialysis tomorrow. Phosphorus level 3.2 dated September 27, 2023. Monitor vancomycin levels. Dose to be adjusted for renal function.
[2023-10-02 11:24] LABS: Glucose,Whole Blood 125 mg/dL (70-110)
[2023-10-02] MEDS: FOLIC ACID-VIT B COMPLEX-VIT C 1 CAP PO SCH (11:45)
== END 2023-10-02 14:53 | DRG 564 ==
LOC: EC 11:03 → 4SSUR 14:09 → EEVIPCON 14:09 → 4SSUR 17:08
PROVIDERS: ADMIT Hospitalist; ATTEND Hospitalist
PROC: 5A1D70Z Performance of Urinary Filtration, Intermittent, Less than 6 Hours Per Day (ICD-10-PCS; 2023-09-26)
PROC: 0J9M0ZX Drainage of Left Upper Leg Subcutaneous Tissue and Fascia, Open Approach, Diagnostic (ICD-10-PCS; principal; 2023-09-27 10:40)
PROC: 2W1PX6Z Compression of Left Upper Leg using Pressure Dressing (ICD-10-PCS; principal; 2023-09-27 10:40)
PROC: 05HY33Z Insertion of Infusion Device into Upper Vein, Percutaneous Approach (ICD-10-PCS; 2023-10-01)
DX: T87.44 Infection of amputation stump, left lower extremity (principal); N18.6 End stage renal disease; L02.416 Cutaneous abscess of left lower limb; Z16.24 Resistance to multiple antibiotics; F02.83 Dementia in other diseases classified elsewhere, unspecified severity, with mood disturbance; L03.116 Cellulitis of left lower limb; I12.0 Hypertensive chronic kidney disease with stage 5 chronic kidney disease or end stage renal disease; I49.5 Sick sinus syndrome; D63.1 Anemia in chronic kidney disease; G40.909 Epilepsy, unspecified, not intractable, without status epilepticus; E83.9 Disorder of mineral metabolism, unspecified; I48.0 Paroxysmal atrial fibrillation; E11.22 Type 2 diabetes mellitus with diabetic chronic kidney disease; B96.1 Klebsiella pneumoniae [K. pneumoniae] as the cause of diseases classified elsewhere; E11.51 Type 2 diabetes mellitus with diabetic peripheral angiopathy without gangrene; Z89.612 Acquired absence of left leg above knee; G20.A1 Parkinson's disease without dyskinesia, without mention of fluctuations; Z99.2 Dependence on renal dialysis; B96.89 Other specified bacterial agents as the cause of diseases classified elsewhere; R13.10 Dysphagia, unspecified; M10.9 Gout, unspecified; E87.6 Hypokalemia; E78.5 Hyperlipidemia, unspecified; K21.9 Gastro-esophageal reflux disease without esophagitis; R32 Unspecified urinary incontinence; Z79.01 Long term (current) use of anticoagulants; Z79.899 Other long term (current) drug therapy; Z95.0 Presence of cardiac pacemaker; Z86.14 Personal history of Methicillin resistant Staphylococcus aureus infection; Z86.73 Personal history of transient ischemic attack (TIA), and cerebral infarction without residual deficits; Z88.6 Allergy status to analgesic agent; Z88.5 Allergy status to narcotic agent; Y83.5 Amputation of limb(s) as the cause of abnormal reaction of the patient, or of later complication, without mention of misadventure at the time of the procedure
CPT/HCPCS: 36415; 36573; 80048; 80053; 80202; 83605; 83735; 84100; 85025; 85610; 85652; 85730; 86140; 87040; 87070; 87075; 87077; 87186; 87205; 90935; 93005; 96365; 96366; 96367; 96375; 99285